=== PATIENT | female | born 1945 | race African-American/Black ===

== ENCOUNTER 2016-09-20 14:00 | Inpatient (IN) | payer MEDICARE, OTHER ==
[2016-09-20 16:49] LABS: ABSOLUTE BASOPHILS # (AUTO) 0.2 10^3/uL (0.0-0.2); ABSOLUTE EOSINOPHILS # (AUTO) 0.1 10^3/uL (0.0-0.6); ABSOLUTE LYMPHOCYTES (AUTO) 2.1 10^3/uL (0.5-4.7); ABSOLUTE MONOCYTES (AUTO) 0.7 10^3/uL (0.1-1.4); ABSOLUTE NEUT (AUTO) 15.5 10^3/uL (1.7-8.2); BASOPHILS % (AUTO) 0.9 % (0-2); EOSINOPHILS % (AUTO) 0.6 % (0-6); HEMATOCRIT 43.1 % (36.0-47.0); HEMOGLOBIN 14.4 g/dL (12.0-15.5); HGB HCT DIFFERENCE 0.1; LYMPHOCYTES % (AUTO) 11.1 % (13-45); MEAN CORPUSCULAR HEMOGLOBIN 25.5 pg (27.0-33.4); MEAN CORPUSCULAR HGB CONC 33.3 g/dL (32.0-36.0); MEAN CORPUSCULAR VOLUME 77 fl (80-97); MONOCYTES % (AUTO) 3.8 % (3-13); RED BLOOD COUNT 5.63 10^6/uL (3.72-5.28); RED CELL DISTRIBUTION WIDTH 16.4 % (11.5-14.0); SEGMENTED NEUTROPHILS % (AUTO) 83.6 % (42-78); WHITE BLOOD COUNT 18.5 10^3/uL (4.0-10.5)
[2016-09-20 17:01] LABS: PROTHROMBIN TIME 12.3 SEC (11.4-15.4)
[2016-09-20 17:07] LABS: ALANINE AMINOTRANSFERASE 35 U/L (9-52); ALBUMIN 3.3 g/dL (3.5-5.0); ALKALINE PHOSPHATASE 127 U/L (38-126); ANION GAP 7 (5-19); ASPARTATE AMINO TRANSFERASE 35 U/L (14-36); BILIRUBIN,TOTAL 0.5 mg/dL (0.2-1.3); BLOOD UREA NITROGEN 20 mg/dL (7-20); CARBON DIOXIDE 30 mmol/L (22-30); CHLORIDE 102 mmol/L (98-107); CREATINE KINASE 157 U/L (30-135); CREATININE RESULT 1.26 mg/dL (0.52-1.25); GLUCOSE 206 mg/dL (75-110); POTASSIUM 3.2 mmol/L (3.6-5.0); SODIUM 139.4 mmol/L (137-145); TOTAL PROTEIN 7.5 g/dL (6.3-8.2)
[2016-09-20] MEDS ORDERED: LABETALOL HCL INJ 20 MG/4 ML DISP.SYRIN IV ONE (17:15)
[2016-09-20] MEDS ORDERED: ONDANSETRON HCL INJ/PF 4 MG/2 ML SDV IV ONE (17:16)
[2016-09-20 17:18] LABS: CREATINE KINASE MB 1.03 ng/mL (<4.55); TROPONIN I 0.026 ng/mL
--- NOTE | 2016-09-20 17:24 | EKG REPORT ---
SEVERITY:- ABNORMAL ECG - SINUS RHYTHM REPOL ABNRM SUGGESTS ISCHEMIA, DIFFUSE LEADS BORDERLINE PROLONGED QT INTERVAL : Confirmed by: Tuan Hirsch MD 20-Sep-2016 17:22:47
--- NOTE | 2016-09-20 18:01 | ER Document Report ---
ED Blood Pressure Problem - General Chief Complaint: Chest Pressure Stated Complaint: HEAD PAIN/VOMITING Notes: Patient is a 70-year-old female who comes in with headache and high blood pressure. Patient was started on new blood pressure medication yesterday and states she cannot tolerate it. Patient's had a headache but it is worse and she is vomiting. Patient also has had some blurred vision. Denies chest pain or trouble breathing. TRAVEL OUTSIDE OF THE [place] IN LAST 30 DAYS: No - HPI Patient complains to provider of: High blood pressure Onset: Other Onset/Duration: Gradual Quality of pain: Dull Severity: Moderate Associated symptoms: Vomiting - Related Data Allergies/Adverse Reactions: codeine [Codeine] Allergy (Mild, Verified 09/20/16 14:43) meperidine HCl [From Demerol] Allergy (Mild, Verified 09/20/16 14:43) Past Medical History - General Information source: Patient - Social History Smoking Status: Unknown if Ever Smoked Family History: Reviewed & Not Pertinent - Past Medical History Cardiac Medical History: Reports: Hx Coronary Artery Disease, Hx Hypertension Neurological Medical History: Denies: Hx Seizures Endocrine Medical History: Reports: Hx Diabetes Mellitus Type 1 Renal/ Medical History: Reports: Hx Ovarian Cysts Musculoskeltal Medical History: Reports Hx Arthritis Psychiatric Medical History: Denies: Hx Depression Past Surgical History: Reports: Hx Cardiac Catheterization - stents x 2, Hx Gynecologic Surgery, Hx Hysterectomy, Hx Tubal Ligation - Immunizations Immunizations up to date: Yes Hx Diphtheria, Pertussis, Tetanus Vaccination: Yes Review of Systems - Review of Systems Constitutional: No symptoms reported EENT: No symptoms reported Cardiovascular: No symptoms reported Respiratory: No symptoms reported Gastrointestinal: See HPI Genitourinary: No symptoms reported Female Genitourinary: No symptoms reported Musculoskeletal: No symptoms reported Skin: No symptoms reported Hematologic/Lymphatic: No symptoms reported Neurological/Psychological: See HPI Physical Exam - Vital signs Vitals: Temp Pulse Resp BP Pulse Ox 98.1 F 75 20 253/104 H 98 09/20/16 14:51 09/20/16 14:51 09/20/16 14:51 09/20/16 14:51 09/20/16 14:51 Interpretation: Hypertensive - General General appearance: Alert In distress: Mild - in pain - HEENT Head: Normocephalic, Atraumatic Eyes: Normal Pupils: PERRL - Respiratory Respiratory status: No respiratory distress Chest status: Nontender Breath sounds: Normal Chest palpation: Normal - Cardiovascular Rhythm: Regular Heart sounds: Normal auscultation Murmur: No - Abdominal Inspection: Normal Distension: No distension Bowel sounds: Normal Tenderness: Nontender Organomegaly: No organomegaly - Back Back: Normal, Nontender - Extremities General upper extremity: Normal inspection, Nontender, Normal color, Normal ROM , Normal temperature General lower extremity: Normal inspection, Nontender, Normal color, Normal ROM , Normal temperature, Normal weight bearing. No: Reid's sign - Neurological Neuro grossly intact: Yes Cognition: Normal Orientation: AAOx4 Jamal Coma Scale Eye Opening: Spontaneous Jamal Coma Scale Verbal: Oriented Jamal Coma Scale Motor: Obeys Commands Jamal Coma Scale Total: 15 Speech: Normal Motor strength normal: LUE, RUE, LLE, RLE Sensory: Normal - Psychological Associated symptoms: Normal affect, Normal mood - Skin Skin Temperature: Warm Skin Moisture: Dry Skin Color: Normal Course - Re-evaluation Re-evalutation: 09/20/16 19:13 Patient is being given labetalol and Zofran with improvement of her symptoms. Patient will be started on a Cardene drip. She has been discussed with her primary care doctor will be admitted to the ICU. Blood work and head CT within normal limits at this time. No further vomiting. Blood pressure is coming down nicely. - Vital Signs Vital signs: Temp Pulse Resp BP Pulse Ox 98.1 F 75 20 253/104 H 98 09/20/16 14:51 09/20/16 14:51 09/20/16 14:51 09/20/16 14:51 09/20/16 14:51 - Laboratory Result Diagrams: 09/20/16 16:30 09/20/16 16:30 Laboratory results interpreted by me: 09/20/16 09/20/16 16:30 16:30 WBC 18.5 H RBC 5.63 H MCV 77 L MCH 25.5 L RDW 16.4 H Seg Neutrophils % 83.6 H Lymphocytes % 11.1 L Absolute Neutrophils 15.5 H Potassium 3.2 L Creatinine 1.26 H Est GFR ( Amer) 51 L Est GFR (Non-Af Amer) 42 L Glucose 206 H Alkaline Phosphatase 127 H Creatine Kinase 157 H Albumin 3.3 L - Diagnostic Test Radiology reviewed: Reports reviewed - EKG Interpretation by Me EKG shows normal: Sinus rhythm Rate: Normal Rhythm: NSR Critical Care Note - Critical Care Note Total time excluding time spent on procedures (mins): 45 - evaluation and management of hypertensive crisis, management of headache and vomiting, multiple re-evaluations, coordination of admission, counseling of patient and family Discharge - Discharge Clinical Impression: Hypertensive crisis Condition: Stable Disposition: ADMITTED INPATIENT Admitting Provider: [facility] Admitted: ICU
[2016-09-20] MEDS: NICARDIPINE HCL RTU, ISO-OS 200 ML IV PRN ×3 (18:17→22:39)
[2016-09-20] MEDS ORDERED: DEXTROSE 50%-WATER 25 GM/50 ML DISP.SYRIN IV PRN ×2 (19:11)
[2016-09-20] MEDS ORDERED: DEXTROSE 40% GEL 15 GM TUBE PO PRN ×2 (19:11)
[2016-09-20] MEDS ORDERED: GLUCAGON,HUMAN RECOMB 1 MG INJ IM PRN (19:11)
[2016-09-20] MEDS ORDERED: NITROGLYCERIN 0.4 MG/TAB 25 TAB/BOTTLE SL PRN (19:12)
[2016-09-20] MEDS ORDERED: ALPRAZOLAM 0.25 MG PO PRN (19:12)
[2016-09-20] MEDS ORDERED: ERGOCALCIFEROL (VITAMIN D2) 50000 UNIT (1.25 MG) CAPSULE PO PRN (19:12)
[2016-09-20] MEDS ORDERED: METFORMIN HCL PO SCH (19:15)
[2016-09-20] MEDS ORDERED: (PENDING PHARMACY ID) (Exenatide Microspheres [Bydureon Pen] 2 MG) SQ SCH (19:15)
[2016-09-20] MEDS ORDERED: METOPROLOL TARTRATE 100 MG TABLET PO SCH (19:15)
[2016-09-20] MEDS ORDERED: CLONIDINE HCL 0.2 MG TABLET PO SCH (19:15)
[2016-09-20] MEDS ORDERED: [UNRECOGNIZED DRUG - OTHER] PO SCH (19:15)
[2016-09-20] MEDS ORDERED: CANAGLIFLOZIN PO SCH (19:15)
[2016-09-20] MEDS ORDERED: INSULIN GLARGINE,HUM.REC.ANLOG 300 UNIT/3 ML INSULN.PEN SUBCUT SCH (19:15)
[2016-09-20] MEDS ORDERED: ATORVASTATIN CALCIUM 40 MG TABLET PO SCH (19:15)
[2016-09-20] MEDS ORDERED: ALPRAZOLAM 0.25 MG TABLET PO PRN (19:26)
[2016-09-20] MEDS ORDERED: ENOXAPARIN SODIUM INJ 40 MG/0.4 ML DISP.SYRIN SUBCUT ONE (20:00)
[2016-09-20] MEDS ORDERED: ASPIRIN 81 MG TABLET, CHEWABLE PO ONE (20:00)
[2016-09-20] MEDS: BUTALB/ACETAMINOPHEN/CAFFEINE 1 TAB EACH PO PRN (21:05)
[2016-09-20 21:22] LABS: PROTHROMBIN TIME 12.5 SEC (11.4-15.4)
[2016-09-20 21:23] LABS: PARTIAL THROMBOPLASTIN TIME 23.1 SEC (23.5-35.8)
[2016-09-20 21:44] LABS: LIPASE 58.4 U/L (23-300); MAGNESIUM 1.8 mg/dL (1.6-2.3); PHOSPHORUS 4.5 mg/dL (2.5-4.5)
[2016-09-20 21:53] LABS: CREATINE KINASE MB 0.89 ng/mL (<4.55); TROPONIN I 0.025 ng/mL
[2016-09-20] MEDS ORDERED: METOPROLOL TARTRATE 50 MG TABLET ONE (22:03)
[2016-09-20 22:18] LABS: THYROID STIMULATING HORMONE 2.14 uIU/mL (0.47-4.68)
[2016-09-20] MEDS: ONDANSETRON HCL INJ/PF 4 MG/2 ML SDV IV PRN (22:22)
[2016-09-20] MEDS: METOPROLOL TARTRATE 100 MG TABLET PO SCH (22:39)
[2016-09-20] MEDS: ATORVASTATIN CALCIUM 80 MG TABLET PO SCH (22:39)
[2016-09-20] MEDS: INSULIN GLARGINE,HUM.REC.ANLOG 300 UNIT/3 ML INSULN.PEN SUBCUT SCH (22:39)
[2016-09-20] MEDS: CEFTRIAXONE 1 GM/D5W RTU 1 GM/50 ML RTUPB IV SCH (22:39)
[2016-09-20] MEDS: CLONIDINE HCL 0.2 MG TABLET PO SCH (22:39)
[2016-09-20] MEDS: INSULIN LISPRO 100 UNIT/ML 3 ML VIAL SUBCUT PRN (23:05)
[2016-09-21 01:49] LABS: CREATINE KINASE MB 1.23 ng/mL (<4.55)
[2016-09-21 01:51] LABS: TROPONIN I 0.05 ng/mL
[2016-09-21] MEDS: NICARDIPINE HCL RTU, ISO-OS 200 ML IV PRN ×5 (03:28→22:16)
[2016-09-21 07:31] LABS: ABSOLUTE BASOPHILS # (AUTO) 0.2 10^3/uL (0.0-0.2); ABSOLUTE MONOCYTES (AUTO) 1.1 10^3/uL (0.1-1.4); ABSOLUTE NEUT (AUTO) 10.6 10^3/uL (1.7-8.2); BASOPHILS % (AUTO) 1.3 % (0-2); HEMOGLOBIN 13.3 g/dL (12.0-15.5); HGB HCT DIFFERENCE -0.1; LYMPHOCYTES % (AUTO) 14.3 % (13-45); MEAN CORPUSCULAR HEMOGLOBIN 25.2 pg (27.0-33.4); MEAN CORPUSCULAR HGB CONC 33.2 g/dL (32.0-36.0); MEAN CORPUSCULAR VOLUME 76 fl (80-97); RED BLOOD COUNT 5.26 10^6/uL (3.72-5.28); RED CELL DISTRIBUTION WIDTH 16.2 % (11.5-14.0); SEGMENTED NEUTROPHILS % (AUTO) 76.4 % (42-78); WHITE BLOOD COUNT 13.9 10^3/uL (4.0-10.5)
[2016-09-21 07:42] LABS: ALANINE AMINOTRANSFERASE 23 U/L (9-52); ALBUMIN 3.3 g/dL (3.5-5.0); ALKALINE PHOSPHATASE 112 U/L (38-126); ANION GAP 11 (5-19); ASPARTATE AMINO TRANSFERASE 27 U/L (14-36); BILIRUBIN,TOTAL 0.3 mg/dL (0.2-1.3); BLOOD UREA NITROGEN 24 mg/dL (7-20); CALCIUM 8.5 mg/dL (8.4-10.2); CARBON DIOXIDE 29 mmol/L (22-30); CHLORIDE 99 mmol/L (98-107); CHOLESTEROL 313.64 mg/dL (0-200); CREATININE RESULT 1.58 mg/dL (0.52-1.25); Direct HDL 66 mg/dL (>40); GLUCOSE 257 mg/dL (75-110); SODIUM 138.9 mmol/L (137-145); TOTAL PROTEIN 6.4 g/dL (6.3-8.2); TRIGLYCERIDES 192 mg/dL (<150)
[2016-09-21 07:52] LABS: CREATINE KINASE MB 2.5 ng/mL (<4.55); TROPONIN I 0.116 ng/mL
[2016-09-21 07:53] LABS: DIRECT LDL 206 mg/dL (<100)
[2016-09-21 08:00] LABS: VLDL CHOLESTEROL 38.4 mg/dL (10-31)
[2016-09-21] MEDS ORDERED: ENOXAPARIN SODIUM INJ 30 MG/0.3 ML DISP.SYRIN SUBCUT SCH (08:00)
[2016-09-21 08:19] LABS: POTASSIUM 2.9 mmol/L (3.6-5.0)
[2016-09-21] MEDS: ENOXAPARIN SODIUM INJ 40 MG/0.4 ML DISP.SYRIN SUBCUT SCH (09:00)
[2016-09-21] MEDS: ACETAMINOPHEN 325 MG TABLET PO PRN (09:03)
[2016-09-21] MEDS: BUTALB/ACETAMINOPHEN/CAFFEINE 1 TAB EACH PO PRN (09:04)
[2016-09-21] MEDS: ASPIRIN 81 MG TABLET, CHEWABLE PO SCH (11:51)
[2016-09-21] MEDS: CLONIDINE HCL 0.2 MG TABLET PO SCH ×2 (11:52→21:43)
[2016-09-21] MEDS: INSULIN GLARGINE,HUM.REC.ANLOG 300 UNIT/3 ML INSULN.PEN SUBCUT SCH ×2 (11:53→21:46)
[2016-09-21] MEDS: METOPROLOL TARTRATE 100 MG TABLET PO SCH ×2 (11:53→21:45)
[2016-09-21] MEDS: INSULIN LISPRO 100 UNIT/ML 3 ML VIAL SUBCUT SCH ×2 (11:54→14:20)
[2016-09-21] MEDS: ONDANSETRON HCL INJ/PF 4 MG/2 ML SDV IV PRN ×2 (12:02→17:23)
--- NOTE | 2016-09-21 12:53 | EKG REPORT ---
SEVERITY:- ABNORMAL ECG - SINUS RHYTHM LVH WITH SECONDARY REPOLARIZATION ABNORMALITY PROLONGED QT INTERVAL : Confirmed by: Tuan Hirsch MD 21-Sep-2016 12:52:32
[2016-09-21] MEDS: POTASSIUM CHLORIDE 10 MEQ TABLET.SA PO SCH ×2 (14:19→20:39)
--- NOTE | 2016-09-21 17:26 | XCELERA REPORT ---
[address] [address] Transthoracic Echocardiogram Report Name: YG METZ Age: 70 yrs Gender: Female : 1945 Patient Status: Inpatient Patient Location: \S\ED10\S\A Study Date: 09/21/2016 10:57 AM Height: 62 in Weight: 214 lb BSA: 2.0 m2 Procedure: A two-dimensional transthoracic echocardiogram with color flow and Doppler was performed. Study Quality: Fair. Reason For Study: ELEVATED TROPONIN History: ELEVATED TROPONIN. Ordering Physician: QUINCY ALEJO Performed By: Sierra Long Interpretation Summary The left ventricle is normal in size. There is mild asymmetric left ventricular hypertrophy. No LVOT obstruction and no 'MIKE'.Hence no IHSS. Left ventricular systolic function is normal. LV EF is 65% Doppler measurements suggest impaired left ventricular relaxation, which is associated with grade I/IV or mild diastolic dysfunction The left ventricular wall motion is normal. The left atrium is borderline dilated. There is no evidence of mitral valve prolapse. There is no mitral valve stenosis. There is a mild amount of mitral regurgitation There is no aortic valve stenosis There is no LVOT obstruction. No aortic regurgitation is present. There is no tricuspid stenosis. There is a trace amount of tricuspid regurgitation Right ventricular systolic pressure is normal. RVSP is 28 mm of Hg , with RA mean of 5. There is a trace amount of pulmonic regurgitation There is no pericardial effusion. MMode/2D Measurements \T\ Calculations RVDd: 3.1 cm LVIDd: 4.0 cm FS: 37.4 % Ao root diam: 2.8 cm IVSd: 1.4 cm LVIDs: 2.5 cm EDV(Teich): 68.2 ml LVPWd: 1.3 cm ESV(Teich): 21.8 ml Ao root area: 6.1 cm2 EF(Teich): 68.0 % LA dimension: 4.1 cm Doppler Measurements \T\ Calculations MV E max renzo: MV P1/2t max renzo: Ao V2 max: LV V1 max P.8 cm/sec 81.4 cm/sec 177.6 cm/sec 5.0 mmHg MV A max renzo: MV P1/2t: 87.5 msec Ao max PG: LV V1 max: 118.6 cm/sec 12.6 mmHg 111.7 cm/sec MV E/A: 0.69 MVA(P1/2t): 2.5 cm2 MV dec slope: 272.6 cm/sec2 MV dec time: 0.30 sec TV V2 max: PA V2 max: PI end-d renzo: TR max renzo: 232.1 cm/sec 75.6 cm/sec 141.2 cm/sec 237.8 cm/sec TV max PG: PA max P.3 mmHg TR max P.6 mmHg 22.6 mmHg Left Ventricle The left ventricle is normal in size. There is mild asymmetric left ventricular hypertrophy. No LVOT obstruction and no 'MIKE'.Hence no IHSS. Left ventricular systolic function is normal. LV EF is 65%. Doppler measurements suggest impaired left ventricular relaxation, which is associated with grade I/IV or mild diastolic dysfunction. The left ventricular wall motion is normal. There is no thrombus. There is no ventricular septal defect visualized. Right Ventricle The right ventricle is grossly normal size. Atria The right atrium is normal. The left atrium is borderline dilated. The interatrial septum is intact with no evidence for an atrial septal defect. Mitral Valve There is no evidence of mitral valve prolapse. There is no vegetation seen on the mitral valve. There is no mitral valve stenosis. There is a mild amount of mitral regurgitation. Aortic Valve There is no aortic valvular vegetation. There is no aortic valve stenosis. There is no LVOT obstruction. No aortic regurgitation is present. Tricuspid Valve There is no tricuspid stenosis. There is a trace amount of tricuspid regurgitation. Right ventricular systolic pressure is normal. RVSP is 28 mm of Hg , with RA mean of 5. Pulmonic Valve There is no pulmonic valvular stenosis. There is a trace amount of pulmonic regurgitation. Great Vessels The aortic root is normal size. Effusions There is no pericardial effusion. : QUINCY ALEJO > Jennifer De Jesus
[2016-09-21] MEDS ORDERED: POTASSIUM CHLORIDE 10 MEQ TABLET.SA PO SCH ×2 (18:00→19:39)
--- NOTE | 2016-09-21 19:47 | PDOC H&P ---
History of Present Illness Admission Date/PCP: 09/20/16 19:03 QUINCY ALEJO, History of Present Illness: YG METZ is a 70 year old female, she came to the emergency room because of headache and vomiting and the blood pressure recorded in the emergency room was 253/104. I saw her in the office yesterday when she came for follow-up. She also complained of headache and the blood pressure recorded in the office yesterday was 280/120, I suggested hospital admission, but she preferred outpatient treatment. She was given tribenzor, in the office and the blood pressure came down some, she was supposed to be on Tribenzor, metoprolol and clonidine, but apparently she was taking only metoprolol and clonidine, so the blood pressure was not optimally controlled.. She was admitted 08/07/2016 where she had right-sided hemicranial headache and on that admission. MRI head was done and it was negative, but at that time she was on that tremendous stress because her son was being charged for murder because her son was involved in heat of passion murder.. In the emergency room when she arrived, CT head was done and it was negative, but because she is vomiting with a headache admission to the hospital was advised and it is appropriate. She was started on intravenous Cardene infusion for the control of the blood pressure. Past Medical History Cardiac Medical History: Reports: Coronary Artery Disease, Hypertension Endocrine Medical History: Reports: Diabetes Mellitus Type 2 Musculoskeltal Medical History: Reports: Arthritis Past Surgical History Past Surgical History: Reports: Cardiac Catheterization - stents x 2, Hysterectomy, Tubal Ligation Social History Information Source: Patient Lives with: Family Smoking Status: Never Smoker Frequency of Alcohol Use: None Hx Recreational Drug Use: No Drugs: None Hx Prescription Drug Abuse: No Family History Family History: Reviewed & Not Pertinent Parental Family History Reviewed: Yes Children Family History Reviewed: Yes Sibling(s) Family History Reviewed.: Yes Medication/Allergy Home Medications: Aspirin [Aspirin 81 mg Chewable Tablet] 81 mg PO DAILY 09/21/16 Butalb/Acetaminophen/Caffeine [Fioricet (50-325-40 mg) Tablet] 1 tab PO Q6HP PRN 09/21/16 Canagliflozin/Metformin HCl [Invokamet Xr 150-1,000 mg Tab] 1 tab PO DAILY 09/21 Clonidine HCl 0.2 mg PO Q12 09/21/16 Furosemide [Lasix] 20 mg PO Q6 09/21/16 Insulin Glargine,Hum.rec.anlog [Lantus Solostar] 20 unit SQ Q12 09/21/16 Insulin Lispro [Humalog] 0 units SQ ASDIR PRN 09/21/16 Metoprolol Tartrate [Lopressor 100 mg Tablet] 100 mg PO Q12 09/21/16 Nitroglycerin 0.4 mg SL PRN PRN 09/21/16 Olmesartan/Amlodipin/Hcthiazid [Tribenzor 40-10-25 mg Tablet] 1 tab PO DAILY Allergies/Adverse Reactions: codeine [Codeine] Allergy (Mild, Verified 09/20/16 14:43) meperidine HCl [From Demerol] Allergy (Mild, Verified 09/20/16 14:43) Review of Systems Constitutional: PRESENT: headache(s) Eyes: ABSENT: as per HPI, visual disturbances, other Ears: ABSENT: hearing changes Nose, Mouth, and Throat: ABSENT: as per HPI, headache(s), mouth pain, sore throat, vertigo, other Cardiovascular: ABSENT: as per HPI, chest pain, dyspnea on exertion, edema, orthropnea, palpitations, other Respiratory: ABSENT: as per HPI, cough, dyspnea, hemoptysis, sputum, other Gastrointestinal: PRESENT: vomiting Genitourinary: ABSENT: as per HPI, difficulty urinating, dysuria, hematuria, nocturia, other Neurological: PRESENT: other - Headache Endocrine: ABSENT: as per HPI, cold intolerance, flushing, heat intolerance, menstrual abnormalities, polydipsia, polyphagia, polyuria, other Physical Exam Vital Signs: Temp Pulse Resp BP Pulse Ox 98.0 F 80 20 162/65 H 99 09/21/16 14:00 09/21/16 17:05 09/21/16 17:05 09/21/16 17:05 09/21/16 17:05 Intake & Output 09/20/16 09/21/16 09/22/16 06:59 06:59 06:59 Intake Total 700 Balance 700 General appearance: PRESENT: mild distress Eye exam: PRESENT: PERRLA Respiratory exam: PRESENT: clear to auscultation jeanette Cardiovascular exam: PRESENT: +S1, +S2 GI/Abdominal exam: PRESENT: soft Neurological exam: PRESENT: alert Results Laboratory Results: 09/21/16 07:15 09/21/16 07:15 09/20/16 09/20/16 09/21/16 20:50 20:50 07:15 WBC 13.9 H RBC 5.26 Hgb 13.3 Hct 40.0 MCV 76 L MCH 25.2 L MCHC 33.2 RDW 16.2 H Plt Count 357 Seg Neutrophils % 76.4 Lymphocytes % 14.3 Monocytes % 8.0 Eosinophils % 0.0 Basophils % 1.3 Absolute Neutrophils 10.6 H Absolute Lymphocytes 2.0 Absolute Monocytes 1.1 Absolute Eosinophils 0.0 Absolute Basophils 0.2 Sodium Potassium Chloride Carbon Dioxide Anion Gap BUN Creatinine Est GFR ( Amer) Est GFR (Non-Af Amer) Glucose Calcium Phosphorus 4.5 Magnesium 1.8 Total Bilirubin AST ALT Alkaline Phosphatase Total Protein Albumin Triglycerides Cholesterol LDL Cholesterol Direct VLDL Cholesterol HDL Cholesterol Amylase 178 H Lipase 58.4 TSH 2.14 Free T4 1.28 09/21/16 07:15 WBC RBC Hgb Hct MCV MCH MCHC RDW Plt Count Seg Neutrophils % Lymphocytes % Monocytes % Eosinophils % Basophils % Absolute Neutrophils Absolute Lymphocytes Absolute Monocytes Absolute Eosinophils Absolute Basophils Sodium 138.9 Potassium 2.9 L* Chloride 99 Carbon Dioxide 29 Anion Gap 11 BUN 24 H Creatinine 1.58 H Est GFR ( Amer) 39 L Est GFR (Non-Af Amer) 32 L Glucose 257 H Calcium 8.5 Phosphorus Magnesium Total Bilirubin 0.3 AST 27 ALT 23 Alkaline Phosphatase 112 Total Protein 6.4 Albumin 3.3 L Triglycerides 192 H Cholesterol 313.64 H LDL Cholesterol Direct 206 H VLDL Cholesterol 38.4 H HDL Cholesterol 66 Amylase Lipase TSH Free T4 09/20/16 09/20/16 09/20/16 20:50 20:50 20:50 Creatine Kinase 156 H CK-MB (CK-2) 0.89 Troponin I 0.025 NT-Pro-B Natriuret Pep Cancelled 09/20/16 09/21/16 09/21/16 20:50 01:07 01:07 Creatine Kinase 112 CK-MB (CK-2) 1.23 Troponin I 0.050 NT-Pro-B Natriuret Pep 6430 H 09/21/16 09/21/16 07:15 07:15 Creatine Kinase 125 CK-MB (CK-2) 2.50 Troponin I 0.116 NT-Pro-B Natriuret Pep Impressions: Chest X-Ray 09/20/16 00:00 IMPRESSION: CARDIAC ENLARGEMENT WITHOUT FAILURE. Head CT 09/20/16 17:00 IMPRESSION: CHRONIC CHANGES OF ATROPHY AND MICROVASCULAR ISCHEMIA. NO ACUTE PROCESS. Assessment & Plan - Diagnosis (1) Malignant hypertension Is this a current diagnosis for this admission?: YesPlan: There is associated hypokalemia, she will be evaluated for secondary hypertension, urine potassium the be requested, 24-hour urine for aldosterone, cortisol, catecholamines, metanephrine and plasma renin activity to differentiate between primary and secondary hyperaldosteronis (2) Hypokalemia Is this a current diagnosis for this admission?: YesPlan: The combination of hypertension, hypokalemia raises the suspicion for hyperaldosteronism (3) Uncontrolled type 2 diabetes mellitus with complication Qualifiers: Diabetes mellitus exterminator insulin use: with custodial use Qualified Code(s): E11.8 - Type 2 diabetes mellitus with unspecified complications; E11.65 - Type 2 diabetes mellitus with hyperglycemia Is this a current diagnosis for this admission?: Yes
--- NOTE | 2016-09-21 19:57 | PDOC PROGRESS REPORT ---
Subjective Progress Note for:: 09/21/16 Subjective:: Patient was seen by the bedside, the blood pressure is not optimally controlled yet. When she was admitted yesterday, this serum creatinine was 1.26, the serum creatinine today is 1.58, suggesting mild acute kidney injury. Yesterday when she was admitted. She had unexplained leukocytosis and she was empirically started on intravenous ceftriaxone. I do not see any urinalysis though it was requested on admission. She has Doppler study of the renal vessels today and that was no evidence of stenosis. She is presently not on any angiotensin converting enzyme inhibitor or angiotensin receptor eliazar because she's been evaluated for hyper aldosteronism as a secondary cause of hypertension with continued to watch the kidney function closely Physical Exam Vital Signs: Temp Pulse Resp BP Pulse Ox 98.0 F 80 20 162/65 H 99 09/21/16 14:00 09/21/16 17:05 09/21/16 17:05 09/21/16 17:05 09/21/16 17:05 Intake & Output 09/20/16 09/21/16 09/22/16 06:59 06:59 06:59 Intake Total 700 Balance 700 General appearance: PRESENT: no acute distress Eye exam: PRESENT: PERRLA Respiratory exam: PRESENT: clear to auscultation jeanette Cardiovascular exam: PRESENT: +S1, +S2 Neurological exam: PRESENT: alert Results Laboratory Results: 09/21/16 07:15 09/21/16 07:15 09/20/16 09/20/16 09/21/16 20:50 20:50 07:15 WBC 13.9 H RBC 5.26 Hgb 13.3 Hct 40.0 MCV 76 L MCH 25.2 L MCHC 33.2 RDW 16.2 H Plt Count 357 Seg Neutrophils % 76.4 Lymphocytes % 14.3 Monocytes % 8.0 Eosinophils % 0.0 Basophils % 1.3 Absolute Neutrophils 10.6 H Absolute Lymphocytes 2.0 Absolute Monocytes 1.1 Absolute Eosinophils 0.0 Absolute Basophils 0.2 Sodium Potassium Chloride Carbon Dioxide Anion Gap BUN Creatinine Est GFR ( Amer) Est GFR (Non-Af Amer) Glucose Calcium Phosphorus 4.5 Magnesium 1.8 Total Bilirubin AST ALT Alkaline Phosphatase Total Protein Albumin Triglycerides Cholesterol LDL Cholesterol Direct VLDL Cholesterol HDL Cholesterol Amylase 178 H Lipase 58.4 TSH 2.14 Free T4 1.28 09/21/16 07:15 WBC RBC Hgb Hct MCV MCH MCHC RDW Plt Count Seg Neutrophils % Lymphocytes % Monocytes % Eosinophils % Basophils % Absolute Neutrophils Absolute Lymphocytes Absolute Monocytes Absolute Eosinophils Absolute Basophils Sodium 138.9 Potassium 2.9 L* Chloride 99 Carbon Dioxide 29 Anion Gap 11 BUN 24 H Creatinine 1.58 H Est GFR ( Amer) 39 L Est GFR (Non-Af Amer) 32 L Glucose 257 H Calcium 8.5 Phosphorus Magnesium Total Bilirubin 0.3 AST 27 ALT 23 Alkaline Phosphatase 112 Total Protein 6.4 Albumin 3.3 L Triglycerides 192 H Cholesterol 313.64 H LDL Cholesterol Direct 206 H VLDL Cholesterol 38.4 H HDL Cholesterol 66 Amylase Lipase TSH Free T4 09/20/16 09/20/16 09/20/16 20:50 20:50 20:50 Creatine Kinase 156 H CK-MB (CK-2) 0.89 Troponin I 0.025 NT-Pro-B Natriuret Pep Cancelled 09/20/16 09/21/16 09/21/16 20:50 01:07 01:07 Creatine Kinase 112 CK-MB (CK-2) 1.23 Troponin I 0.050 NT-Pro-B Natriuret Pep 6430 H 09/21/16 09/21/16 07:15 07:15 Creatine Kinase 125 CK-MB (CK-2) 2.50 Troponin I 0.116 NT-Pro-B Natriuret Pep Impressions: Chest X-Ray 09/20/16 00:00 IMPRESSION: CARDIAC ENLARGEMENT WITHOUT FAILURE. Head CT 09/20/16 17:00 IMPRESSION: CHRONIC CHANGES OF ATROPHY AND MICROVASCULAR ISCHEMIA. NO ACUTE PROCESS. Head MRI 09/21/16 00:00 IMPRESSION: Negative for acute or sub-acute infarction.MINIMAL MICROVASCULAR ISCHEMIC CHANGE. Assessment & Plan - Diagnosis (1) Malignant hypertension Is this a current diagnosis for this admission?: YesPlan: We'll increase clonidine dose to 0.2 MG by mouth every 8. We'll continue Cardene infusion until the 24 hour urine collection is complete (2) Hypokalemia Is this a current diagnosis for this admission?: Yes (3) Uncontrolled type 2 diabetes mellitus with complication Qualifiers: Diabetes mellitus director long term care insulin use: with director long term care use Qualified Code(s): E11.8 - Type 2 diabetes mellitus with unspecified complications; E11.65 - Type 2 diabetes mellitus with hyperglycemia Is this a current diagnosis for this admission?: Yes (4) Leukocytosis Qualifiers: Leukocytosis type: unspecified Qualified Code(s): D72.829 - Elevated white blood cell count, unspecified Is this a current diagnosis for this admission?: YesPlan: Patient empirically on intravenous ceftriaxone for presumptive UTI (5) ETTA (acute kidney injury) Is this a current diagnosis for this admission?: YesPlan: This serum creatinine is 1.58 today, suggesting acute kidney injury. This could be related to the hypertensive crisis
--- NOTE | 2016-09-21 19:58 | PDOC PROGRESS REPORT ---
Physical Exam Vital Signs: Temp Pulse Resp BP Pulse Ox 98.0 F 74 12 153/70 H 97 09/21/16 14:00 09/21/16 17:20 09/21/16 17:20 09/21/16 17:20 09/21/16 17:20 Intake & Output 09/20/16 09/21/16 09/22/16 06:59 06:59 06:59 Intake Total 700 Balance 700 Results Laboratory Results: 09/21/16 07:15 09/21/16 07:15 09/20/16 09/20/16 09/21/16 20:50 20:50 07:15 WBC 13.9 H RBC 5.26 Hgb 13.3 Hct 40.0 MCV 76 L MCH 25.2 L MCHC 33.2 RDW 16.2 H Plt Count 357 Seg Neutrophils % 76.4 Lymphocytes % 14.3 Monocytes % 8.0 Eosinophils % 0.0 Basophils % 1.3 Absolute Neutrophils 10.6 H Absolute Lymphocytes 2.0 Absolute Monocytes 1.1 Absolute Eosinophils 0.0 Absolute Basophils 0.2 Sodium Potassium Chloride Carbon Dioxide Anion Gap BUN Creatinine Est GFR ( Amer) Est GFR (Non-Af Amer) Glucose Calcium Phosphorus 4.5 Magnesium 1.8 Total Bilirubin AST ALT Alkaline Phosphatase Total Protein Albumin Triglycerides Cholesterol LDL Cholesterol Direct VLDL Cholesterol HDL Cholesterol Amylase 178 H Lipase 58.4 TSH 2.14 Free T4 1.28 09/21/16 07:15 WBC RBC Hgb Hct MCV MCH MCHC RDW Plt Count Seg Neutrophils % Lymphocytes % Monocytes % Eosinophils % Basophils % Absolute Neutrophils Absolute Lymphocytes Absolute Monocytes Absolute Eosinophils Absolute Basophils Sodium 138.9 Potassium 2.9 L* Chloride 99 Carbon Dioxide 29 Anion Gap 11 BUN 24 H Creatinine 1.58 H Est GFR ( Amer) 39 L Est GFR (Non-Af Amer) 32 L Glucose 257 H Calcium 8.5 Phosphorus Magnesium Total Bilirubin 0.3 AST 27 ALT 23 Alkaline Phosphatase 112 Total Protein 6.4 Albumin 3.3 L Triglycerides 192 H Cholesterol 313.64 H LDL Cholesterol Direct 206 H VLDL Cholesterol 38.4 H HDL Cholesterol 66 Amylase Lipase TSH Free T4 09/20/16 09/20/16 09/20/16 20:50 20:50 20:50 Creatine Kinase 156 H CK-MB (CK-2) 0.89 Troponin I 0.025 NT-Pro-B Natriuret Pep Cancelled 09/20/16 09/21/16 09/21/16 20:50 01:07 01:07 Creatine Kinase 112 CK-MB (CK-2) 1.23 Troponin I 0.050 NT-Pro-B Natriuret Pep 6430 H 09/21/16 09/21/16 07:15 07:15 Creatine Kinase 125 CK-MB (CK-2) 2.50 Troponin I 0.116 NT-Pro-B Natriuret Pep Impressions: Chest X-Ray 09/20/16 00:00 IMPRESSION: CARDIAC ENLARGEMENT WITHOUT FAILURE. Head CT 09/20/16 17:00 IMPRESSION: CHRONIC CHANGES OF ATROPHY AND MICROVASCULAR ISCHEMIA. NO ACUTE PROCESS. Head MRI 09/21/16 00:00 IMPRESSION: Negative for acute or sub-acute infarction.MINIMAL MICROVASCULAR ISCHEMIC CHANGE. Assessment & Plan - Diagnosis (1) Malignant hypertension Is this a current diagnosis for this admission?: Yes (2) Hypokalemia Is this a current diagnosis for this admission?: Yes (3) Uncontrolled type 2 diabetes mellitus with complication Qualifiers: Diabetes mellitus terminal supervisor insulin use: with terminal supervisor use Qualified Code(s): E11.8 - Type 2 diabetes mellitus with unspecified complications; E11.65 - Type 2 diabetes mellitus with hyperglycemia Is this a current diagnosis for this admission?: Yes (4) Leukocytosis Qualifiers: Leukocytosis type: unspecified Qualified Code(s): D72.829 - Elevated white blood cell count, unspecified Is this a current diagnosis for this admission?: Yes (5) ETTA (acute kidney injury) Is this a current diagnosis for this admission?: Yes
[2016-09-21] MEDS: CEFTRIAXONE 1 GM/D5W RTU 1 GM/50 ML RTUPB IV SCH (21:42)
[2016-09-21] MEDS: ATORVASTATIN CALCIUM 80 MG TABLET PO SCH (21:46)
[2016-09-21] MEDS: INSULIN LISPRO 100 UNIT/ML 3 ML VIAL SUBCUT PRN (22:06)
[2016-09-22] MEDS: INSULIN LISPRO 100 UNIT/ML 3 ML VIAL SUBCUT SCH ×4 (00:48→18:48)
[2016-09-22] MEDS: ACETAMINOPHEN 325 MG TABLET PO PRN ×2 (03:41→20:23)
[2016-09-22 04:18] LABS: ABSOLUTE BASOPHILS # (AUTO) 0.1 10^3/uL (0.0-0.2); ABSOLUTE LYMPHOCYTES (AUTO) 2.7 10^3/uL (0.5-4.7); ABSOLUTE MONOCYTES (AUTO) 1.2 10^3/uL (0.1-1.4); ABSOLUTE NEUT (AUTO) 8.5 10^3/uL (1.7-8.2); BASOPHILS % (AUTO) 0.5 % (0-2); EOSINOPHILS % (AUTO) 0.2 % (0-6); HEMATOCRIT 37.4 % (36.0-47.0); HEMOGLOBIN 12.6 g/dL (12.0-15.5); HGB HCT DIFFERENCE 0.4; LYMPHOCYTES % (AUTO) 21.3 % (13-45); MEAN CORPUSCULAR HEMOGLOBIN 25.5 pg (27.0-33.4); MEAN CORPUSCULAR HGB CONC 33.6 g/dL (32.0-36.0); MEAN CORPUSCULAR VOLUME 76 fl (80-97); MONOCYTES % (AUTO) 9.4 % (3-13); RED BLOOD COUNT 4.92 10^6/uL (3.72-5.28); SEGMENTED NEUTROPHILS % (AUTO) 68.6 % (42-78); WHITE BLOOD COUNT 12.5 10^3/uL (4.0-10.5)
[2016-09-22 04:24] LABS: ALANINE AMINOTRANSFERASE 30 U/L (9-52); ALBUMIN 2.8 g/dL (3.5-5.0); ALKALINE PHOSPHATASE 87 U/L (38-126); ANION GAP 6 (5-19); ASPARTATE AMINO TRANSFERASE 39 U/L (14-36); BILIRUBIN,TOTAL 0.3 mg/dL (0.2-1.3); BLOOD UREA NITROGEN 33 mg/dL (7-20); CALCIUM 8.2 mg/dL (8.4-10.2); CARBON DIOXIDE 29 mmol/L (22-30); CHLORIDE 101 mmol/L (98-107); CREATININE RESULT 2.22 mg/dL (0.52-1.25); GLUCOSE 157 mg/dL (75-110); TOTAL PROTEIN 6.2 g/dL (6.3-8.2)
[2016-09-22] MEDS: CLONIDINE HCL 0.2 MG TABLET PO SCH ×3 (05:25→21:15)
[2016-09-22] MEDS: INSULIN LISPRO 100 UNIT/ML 3 ML VIAL SUBCUT PRN ×2 (05:26→21:31)
[2016-09-22] MEDS: ENOXAPARIN SODIUM INJ 40 MG/0.4 ML DISP.SYRIN SUBCUT SCH (08:52)
[2016-09-22] MEDS: INSULIN GLARGINE,HUM.REC.ANLOG 300 UNIT/3 ML INSULN.PEN SUBCUT SCH ×2 (09:34→21:15)
[2016-09-22] MEDS: ASPIRIN 81 MG TABLET, CHEWABLE PO SCH (09:34)
[2016-09-22] MEDS: METOPROLOL TARTRATE 100 MG TABLET PO SCH ×2 (09:34→21:14)
[2016-09-22 12:06] LABS: APPEARANCE,URINE CLOUDY; BILIRUBIN,URINE NEGATIVE (NEGATIVE); GLUCOSE, URINE 50 mg/dL (NEGATIVE); KETONES,URINE NEGATIVE (NEGATIVE); LEUKOCYTE ESTERASE,URINE NEGATIVE (NEGATIVE); NITRITE,URINE NEGATIVE (NEGATIVE); PROTEIN,URINE >=500 mg/dL (NEGATIVE); URINE SPECIFIC GRAVITY 1.012; UROBILINOGEN,URINE NEGATIVE mg/dL (<2.0)
[2016-09-22 12:26] LABS: URINE METHADONE SCREEN NEGATIVE; URINE PHENCYCLIDINE SCREEN NEGATIVE
[2016-09-22 12:30] LABS: URINE POTASSIUM 30.5 mmol/L (22-164)
[2016-09-22 12:33] LABS: URINE BARBITURATES SCREEN UNCONFIRMED POSITIVE
[2016-09-22] MEDS: HYDRALAZINE HCL 25 MG TABLET PO SCH ×2 (14:15→21:14)
[2016-09-22] MEDS ORDERED: AMLODIPINE BESYLATE 10 MG TABLET PO ONE (14:30)
--- NOTE | 2016-09-22 15:27 | PDOC CONSULTATION ---
Consultation Consult Date: 09/22/16 Attending physician:: QUINCY ALEJO Consult reason:: I was asked by Dr. Alejo to see this patient because of worsening kidney function. History of Present Illness Admission Date/PCP: 09/20/16 19:03 QUINCY ALEJO, History of Present Illness: YG METZ is a 70 year old female, she came to the emergency room because of headache and vomiting and the blood pressure recorded in the emergency room was 253/104. I saw her in the office yesterday when she came for follow-up. She also complained of headache and the blood pressure recorded in the office yesterday was 280/120, I suggested hospital admission, but she preferred outpatient treatment. She was given tribenzor, in the office and the blood pressure came down some, she was supposed to be on Tribenzor, metoprolol and clonidine, but apparently she was taking only metoprolol and clonidine, so the blood pressure was not optimally controlled.. She was admitted 08/07/2016 where she had right-sided hemicranial headache and on that admission. MRI head was done and it was negative, but at that time she was on that tremendous stress because her son was being charged for murder because her son was involved in heat of passion murder.. In the emergency room when she arrived, CT head was done and it was negative, but because she is vomiting with a headache admission to the hospital was advised and it is appropriate. She was started on intravenous Cardene infusion for the control of the blood pressure. Patient's blood pressure has gone down on Cardene drip since admission. Unfortunately it has gotten so low was low was 118 to 120s over 60s last night. Patient has been oliguric since yesterday. Her kidney function has also gotten worse. On admission she had a BUN of 20 creatinine of 1.26 and today she had a BUN of 33 creatinine of 2.22, with a GFR of 22. She denies any previous episodes of kidney failure but previous records here in the hospital showed that she might have had an episode of acute renal failure sometime in October 2015 during a previous admission. She denies any history of hepatitis B or C. She used to be take Advil but has stopped. She claims that she feels better now even feeling great. She denies any headache nor vomiting nor chest pain or shortness of breath. Her urinalysis showed significant proteinuria. Workup for secondary causes of hypertension is currently pending. She has normal thyroid functions. Her plasma renin activity, urine protein electrophoresis, and 24-hour urine for catecholamines,, cortisol and aldosterone are all pending. Her duplex of the renal arteries is negative for any hemodynamically significant renal artery stenosis. Her echocardiogram showed the ejection fraction of 65% and grade I/IV diastolic dysfunction. Patient relates to me that her blood pressure for the last 3 months as always been elevated and usually with systolic blood pressure in the 200s. It's been at least more than 3 months when she last saw blood pressure of 129/70. Past Medical History Cardiac Medical History: Reports: Coronary Artery Disease, Hyperlipidemia, Hypertension-primary - Diagnosis at least about 28 years ago. Endocrine Medical History: Reports: Diabetes Mellitus Type 2 - Diagnosed about 12 years ago Complications of Diabetes: Reports: Autonomic Neuropathy, Retinopathy Malignancy Medical History: Reports: Colorectal Cancer - Status post colon resection. Musculoskeltal Medical History: Reports: Arthritis Past Surgical History Past Surgical History: Reports: Cardiac Catheterization - stents x 2, Hysterectomy - With bilateral salpingo-oophorectomy, Tubal Ligation, Other - Colon resection Social History Information Source: Patient Lives with: Family Smoking Status: Never Smoker Frequency of Alcohol Use: None Hx Recreational Drug Use: No Drugs: None Hx Prescription Drug Abuse: No Family History Family History: DM - Both her parents, Other - Atrial fibrillation on her mother Parental Family History Reviewed: Yes Children Family History Reviewed: Unknown Sibling(s) Family History Reviewed.: Unknown Medication/Allergy Home Medications: Aspirin [Aspirin 81 mg Chewable Tablet] 81 mg PO DAILY 09/21/16 Butalb/Acetaminophen/Caffeine [Fioricet (50-325-40 mg) Tablet] 1 tab PO Q6HP PRN 09/21/16 Canagliflozin/Metformin HCl [Invokamet Xr 150-1,000 mg Tab] 1 tab PO DAILY 09/21 Clonidine HCl 0.2 mg PO Q12 09/21/16 Furosemide [Lasix] 20 mg PO Q6 09/21/16 Insulin Glargine,Hum.rec.anlog [Lantus Solostar] 20 unit SQ Q12 09/21/16 Insulin Lispro [Humalog] 0 units SQ ASDIR PRN 09/21/16 Metoprolol Tartrate [Lopressor 100 mg Tablet] 100 mg PO Q12 09/21/16 Nitroglycerin 0.4 mg SL PRN PRN 09/21/16 Olmesartan/Amlodipin/Hcthiazid [Tribenzor 40-10-25 mg Tablet] 1 tab PO DAILY Allergies/Adverse Reactions: codeine [Codeine] Allergy (Mild, Verified 09/20/16 14:43) meperidine HCl [From Demerol] Allergy (Mild, Verified 09/20/16 14:43) Review of Systems All systems: reviewed and no additional remarkable complaints except as stated Review of Systems: Constitutional: ABSENT: chills, fatigue, fever(s), headache(s), weight gain, weight loss Eyes: ABSENT: visual disturbances Ears: ABSENT: hearing changes Cardiovascular: ABSENT: chest pain, dyspnea on exertion, edema, orthropnea, palpitations Respiratory: ABSENT: cough, dyspnea, hemoptysis Gastrointestinal: ABSENT: abdominal pain, constipation, diarrhea, hematemesis, hematochezia, nausea, vomiting Genitourinary: ABSENT: dysuria, hematuria; decrease urine output Musculoskeletal: ABSENT: joint swelling Integumentary: ABSENT: rash, wounds Neurological: ABSENT: abnormal gait, abnormal speech, confusion, dizziness, focal weakness, numbness, syncope Psychiatric: ABSENT: anxiety, depression Endocrine: ABSENT: cold intolerance, heat intolerance, polydipsia, polyuria Hematologic/Lymphatic: ABSENT: easy bleeding, easy bruising, lymphadenopathy Physical Exam Vital Signs: Temp Pulse Resp BP Pulse Ox 98.5 F 67 17 165/81 H 98 09/22/16 14:58 09/22/16 14:58 09/22/16 14:58 09/22/16 14:58 09/22/16 14:58 Intake & Output 09/21/16 09/22/16 09/23/16 06:59 06:59 06:59 Intake Total 2413 360 Output Total 180 50 Balance 2233 310 Exam: General appearance: no acute distress, cooperative, well-developed, well- nourished Head exam: PRESENT: atraumatic, normocephalic Eye exam: PRESENT: Conjunctiva slightly pale, EOMI, PERRLA. ABSENT: conjunctival injection, scleral icterus Mouth exam: PRESENT: moist, neck supple, tongue midline Neck exam: PRESENT: full ROM. ABSENT: carotid bruit, JVD, lymphadenopathy, thyromegaly Respiratory exam: PRESENT: clear to auscultation bilaterally. ABSENT: rales, rhonchi, stridor, wheezes Cardiovascular exam: PRESENT: RRR, +S1, +S2. ABSENT: systolic murmur Pulses: PRESENT: normal radial pulses, normal dorsalis pedis pulses GI/Abdominal exam: PRESENT: normal bowel sounds, soft. ABSENT: guarding, mass, tenderness Rectal exam: deferred Extremities exam: PRESENT: full ROM. ABSENT: calf tenderness, she has trace bilateral pedal edema Musculoskeletal: PRESENT: full ROM. ABSENT: deformity Neurological exam: PRESENT: alert, Awake, Oriented to person, Oriented to place , Oriented to time, reflexes normal, CN II-XII grossly intact. ABSENT: motor sensory deficit Psychiatric exam: PRESENT: appropriate affect, normal mood. ABSENT: homicidal ideation, suicidal ideation Skin exam: PRESENT: intact, dry, warm. ABSENT: rash Results Laboratory Results: 09/22/16 03:51 09/22/16 03:51 09/22/16 09/22/16 09/22/16 03:51 03:51 11:43 WBC 12.5 H RBC 4.92 Hgb 12.6 Hct 37.4 MCV 76 L MCH 25.5 L MCHC 33.6 RDW 16.0 H Plt Count 322 Seg Neutrophils % 68.6 Lymphocytes % 21.3 Monocytes % 9.4 Eosinophils % 0.2 Basophils % 0.5 Absolute Neutrophils 8.5 H Absolute Lymphocytes 2.7 Absolute Monocytes 1.2 Absolute Eosinophils 0.0 Absolute Basophils 0.1 Sodium 136.0 L Potassium 4.0 D Chloride 101 Carbon Dioxide 29 Anion Gap 6 BUN 33 H Creatinine 2.22 H Est GFR ( Amer) 26 L Est GFR (Non-Af Amer) 22 L Glucose 157 H Calcium 8.2 L Total Bilirubin 0.3 AST 39 H ALT 30 Alkaline Phosphatase 87 Total Protein 6.2 L Albumin 2.8 L Urine Color YELLOW Urine Appearance CLOUDY Urine pH 5.0 Ur Specific [place] 1.012 Urine Protein >=500 H Urine Glucose (UA) 50 H Urine Ketones NEGATIVE Urine Blood SMALL H Urine Nitrite NEGATIVE Ur Leukocyte Esterase NEGATIVE Urine WBC (Auto) 7 Urine RBC (Auto) 3 09/20/16 09/20/16 09/20/16 20:50 20:50 20:50 Creatine Kinase 156 H CK-MB (CK-2) 0.89 Troponin I 0.025 NT-Pro-B Natriuret Pep Cancelled 09/20/16 09/21/16 09/21/16 20:50 01:07 01:07 Creatine Kinase 112 CK-MB (CK-2) 1.23 Troponin I 0.050 NT-Pro-B Natriuret Pep 6430 H 09/21/16 09/21/16 07:15 07:15 Creatine Kinase 125 CK-MB (CK-2) 2.50 Troponin I 0.116 NT-Pro-B Natriuret Pep Impressions: Chest X-Ray 09/20/16 00:00 IMPRESSION: CARDIAC ENLARGEMENT WITHOUT FAILURE. Head CT 09/20/16 17:00 IMPRESSION: CHRONIC CHANGES OF ATROPHY AND MICROVASCULAR ISCHEMIA. NO ACUTE PROCESS. Head MRI 09/21/16 00:00 IMPRESSION: Negative for acute or sub-acute infarction.MINIMAL MICROVASCULAR ISCHEMIC CHANGE. Assessment & Plan - Diagnosis (1) ETTA (acute kidney injury) Is this a current diagnosis for this admission?: YesPlan: This is most likely secondary to the drastic change on her all blood pressure causing an acute tubular necrosis. Patient is currently oliguric. She does not have any other signs of fluid overload or uremic symptoms at this point. We need to maintain her all systolic blood pressure to at least 160 to 180s at this point and nothing lower. At this time there is no indication of any urgent need for renal replacement therapy. Hopefully once her blood pressure is not as low she can have reversal of this acute kidney injury. Continue to monitor kidney function and urine output. Avoid any nephrotoxic agents. Patient also has significant proteinuria. It is very possible that she has an underlying chronic renal insufficiency with proteinuria secondary to a combination of diabetes and hypertension. (2) Acute renal tubular necrosis Is this a current diagnosis for this admission?: Yes (3) Malignant hypertension Is this a current diagnosis for this admission?: YesPlan: Maintain systolic blood pressure to 160 to 180s with current blood pressure regimen. Agree with discontinuation of Cardene drip at this time. Workup for secondary causes of hypertension is currently pending. I will add plasma aldosterone. Agree with current blood pressure medications. (4) Uncontrolled type 2 diabetes mellitus with complication Qualifiers: Diabetes mellitus fci insulin use: with fci use Qualified Code(s): E11.8 - Type 2 diabetes mellitus with unspecified complications; E11.65 - Type 2 diabetes mellitus with hyperglycemia Is this a current diagnosis for this admission?: YesPlan: This needs better long-term control of blood pressure. PCP managing. - Notes Notes: Thank you very much for this consultation and I'll follow the patient with you. - Time Time Spent: 50 to 70 Minutes
--- NOTE | 2016-09-22 15:58 | PDOC PROGRESS REPORT ---
Subjective Progress Note for:: 09/22/16 Subjective:: Patient was seen by the bedside, this serum creatinine is 2.2, suggesting acute kidney injury, probably due to acute tubular necrosis. She has significant proteinuria. Unfortunately, we are not able to measure urine protein creatinine ratio at this time in the hospital because of lack of reagent. The urine potassium is more than 20 suggesting renal loss of potassium, there is no indication for acute dialysis at this time, we'll request for consultation from nephrology. Patient felt somewhat better, the serum renin activity is pending . 24-hour urine collection for secondary causes of hypertension is ongoing. The kidney Doppler study of the renal vessels were normal suggesting no significant renal artery stenosis. Physical Exam Vital Signs: Temp Pulse Resp BP Pulse Ox 98.5 F 67 17 165/81 H 98 09/22/16 14:58 09/22/16 14:58 09/22/16 14:58 09/22/16 14:58 09/22/16 14:58 Intake & Output 09/21/16 09/22/16 09/23/16 06:59 06:59 06:59 Intake Total 2413 360 Output Total 180 50 Balance 2233 310 General appearance: PRESENT: no acute distress, well-developed, well-nourished Head exam: PRESENT: atraumatic, normocephalic Eye exam: PRESENT: conjunctiva pink, EOMI, PERRLA. ABSENT: scleral icterus Ear exam: PRESENT: normal external ear exam Mouth exam: PRESENT: moist, tongue midline Neck exam: PRESENT: full ROM Cardiovascular exam: PRESENT: RRR, +S1, +S2 Vascular exam: PRESENT: normal capillary refill GI/Abdominal exam: PRESENT: normal bowel sounds, soft Rectal exam: PRESENT: deferred Neurological exam: PRESENT: alert, awake, oriented to person, oriented to place , oriented to time, oriented to situation, CN II-XII grossly intact Psychiatric exam: PRESENT: appropriate affect, normal mood Skin exam: PRESENT: dry, intact, warm Results Laboratory Results: 09/22/16 03:51 09/22/16 03:51 09/22/16 09/22/16 09/22/16 03:51 03:51 11:43 WBC 12.5 H RBC 4.92 Hgb 12.6 Hct 37.4 MCV 76 L MCH 25.5 L MCHC 33.6 RDW 16.0 H Plt Count 322 Seg Neutrophils % 68.6 Lymphocytes % 21.3 Monocytes % 9.4 Eosinophils % 0.2 Basophils % 0.5 Absolute Neutrophils 8.5 H Absolute Lymphocytes 2.7 Absolute Monocytes 1.2 Absolute Eosinophils 0.0 Absolute Basophils 0.1 Sodium 136.0 L Potassium 4.0 D Chloride 101 Carbon Dioxide 29 Anion Gap 6 BUN 33 H Creatinine 2.22 H Est GFR ( Amer) 26 L Est GFR (Non-Af Amer) 22 L Glucose 157 H Calcium 8.2 L Total Bilirubin 0.3 AST 39 H ALT 30 Alkaline Phosphatase 87 Total Protein 6.2 L Albumin 2.8 L Urine Color YELLOW Urine Appearance CLOUDY Urine pH 5.0 Ur Specific [place] 1.012 Urine Protein >=500 H Urine Glucose (UA) 50 H Urine Ketones NEGATIVE Urine Blood SMALL H Urine Nitrite NEGATIVE Ur Leukocyte Esterase NEGATIVE Urine WBC (Auto) 7 Urine RBC (Auto) 3 09/20/16 09/20/16 09/20/16 20:50 20:50 20:50 Creatine Kinase 156 H CK-MB (CK-2) 0.89 Troponin I 0.025 NT-Pro-B Natriuret Pep Cancelled 09/20/16 09/21/16 09/21/16 20:50 01:07 01:07 Creatine Kinase 112 CK-MB (CK-2) 1.23 Troponin I 0.050 NT-Pro-B Natriuret Pep 6430 H 09/21/16 09/21/16 07:15 07:15 Creatine Kinase 125 CK-MB (CK-2) 2.50 Troponin I 0.116 NT-Pro-B Natriuret Pep Impressions: Chest X-Ray 09/20/16 00:00 IMPRESSION: CARDIAC ENLARGEMENT WITHOUT FAILURE. Head CT 09/20/16 17:00 IMPRESSION: CHRONIC CHANGES OF ATROPHY AND MICROVASCULAR ISCHEMIA. NO ACUTE PROCESS. Head MRI 09/21/16 00:00 IMPRESSION: Negative for acute or sub-acute infarction.MINIMAL MICROVASCULAR ISCHEMIC CHANGE. Assessment & Plan - Diagnosis (1) Malignant hypertension Is this a current diagnosis for this admission?: Yes (2) Hypokalemia Is this a current diagnosis for this admission?: Yes (3) Uncontrolled type 2 diabetes mellitus with complication Qualifiers: Diabetes mellitus [facility] insulin use: with continuous churn buttermaker use Qualified Code(s): E11.8 - Type 2 diabetes mellitus with unspecified complications; E11.65 - Type 2 diabetes mellitus with hyperglycemia Is this a current diagnosis for this admission?: Yes (4) Leukocytosis Qualifiers: Leukocytosis type: unspecified Qualified Code(s): D72.829 - Elevated white blood cell count, unspecified Is this a current diagnosis for this admission?: Yes (5) ETTA (acute kidney injury) Is this a current diagnosis for this admission?: YesPlan: The acute kidney injury is probably due to acute tubular necrosis (6) Acute tubular necrosis Is this a current diagnosis for this admission?: Yes
[2016-09-22] MEDS: ATORVASTATIN CALCIUM 80 MG TABLET PO SCH (21:14)
[2016-09-22] MEDS: CEFTRIAXONE 1 GM/D5W RTU 1 GM/50 ML RTUPB IV SCH (21:15)
[2016-09-22] MEDS: BUTALB/ACETAMINOPHEN/CAFFEINE 1 TAB EACH PO PRN (21:26)
[2016-09-23 04:34] LABS: ABSOLUTE BASOPHILS # (AUTO) 0.1 10^3/uL (0.0-0.2); ABSOLUTE EOSINOPHILS # (AUTO) 0.1 10^3/uL (0.0-0.6); ABSOLUTE LYMPHOCYTES (AUTO) 2.4 10^3/uL (0.5-4.7); ABSOLUTE MONOCYTES (AUTO) 0.8 10^3/uL (0.1-1.4); ABSOLUTE NEUT (AUTO) 4.1 10^3/uL (1.7-8.2); BASOPHILS % (AUTO) 0.9 % (0-2); EOSINOPHILS % (AUTO) 1.9 % (0-6); HEMATOCRIT 35.4 % (36.0-47.0); HEMOGLOBIN 11.7 g/dL (12.0-15.5); HGB HCT DIFFERENCE -0.3; LYMPHOCYTES % (AUTO) 31.9 % (13-45); MEAN CORPUSCULAR HEMOGLOBIN 25.1 pg (27.0-33.4); MEAN CORPUSCULAR VOLUME 76 fl (80-97); MONOCYTES % (AUTO) 10.6 % (3-13); RED BLOOD COUNT 4.64 10^6/uL (3.72-5.28); RED CELL DISTRIBUTION WIDTH 15.7 % (11.5-14.0); SEGMENTED NEUTROPHILS % (AUTO) 54.7 % (42-78); WHITE BLOOD COUNT 7.6 10^3/uL (4.0-10.5)
[2016-09-23 04:46] LABS: ALANINE AMINOTRANSFERASE 43 U/L (9-52); ALBUMIN 2.5 g/dL (3.5-5.0); ALKALINE PHOSPHATASE 106 U/L (38-126); ANION GAP 7 (5-19); ASPARTATE AMINO TRANSFERASE 33 U/L (14-36); BILIRUBIN,TOTAL 0.2 mg/dL (0.2-1.3); BLOOD UREA NITROGEN 40 mg/dL (7-20); CALCIUM 8.3 mg/dL (8.4-10.2); CARBON DIOXIDE 27 mmol/L (22-30); CHLORIDE 104 mmol/L (98-107); CREATININE RESULT 2.12 mg/dL (0.52-1.25); GLUCOSE 206 mg/dL (75-110); POTASSIUM 3.7 mmol/L (3.6-5.0); SODIUM 137.5 mmol/L (137-145); TOTAL PROTEIN 5.2 g/dL (6.3-8.2)
[2016-09-23] MEDS: CLONIDINE HCL 0.2 MG TABLET PO SCH ×3 (06:31→21:09)
[2016-09-23] MEDS: HYDRALAZINE HCL 25 MG TABLET PO SCH ×3 (06:32→21:07)
[2016-09-23] MEDS: ENOXAPARIN SODIUM INJ 30 MG/0.3 ML DISP.SYRIN SUBCUT SCH (07:58)
[2016-09-23] MEDS: INSULIN LISPRO 100 UNIT/ML 3 ML VIAL SUBCUT PRN ×2 (07:59→11:31)
--- NOTE | 2016-09-23 09:21 | PDOC PROGRESS REPORT ---
Subjective Progress Note for:: 09/23/16 Subjective:: pt is doing well no chest pain no headache bp is still on 170 range pt seen by dr shah Physical Exam Vital Signs: Temp Pulse Resp BP Pulse Ox 97.6 F 57 L 17 165/83 H 100 09/23/16 07:33 09/23/16 08:00 09/23/16 08:00 09/23/16 07:54 09/23/16 08:00 Intake & Output 09/22/16 09/23/16 09/24/16 06:59 06:59 06:59 Intake Total 2413 900 210 Output Total 180 800 Balance 2233 100 210 General appearance: PRESENT: no acute distress Head exam: PRESENT: normocephalic Eye exam: PRESENT: PERRLA Mouth exam: PRESENT: neck supple Respiratory exam: PRESENT: clear to auscultation jeanette Cardiovascular exam: PRESENT: RRR, +S1, +S2 GI/Abdominal exam: PRESENT: normal bowel sounds, soft. ABSENT: tenderness Extremities exam: ABSENT: pedal edema Neurological exam: PRESENT: alert, awake, oriented to person, oriented to place , oriented to time, oriented to situation, reflexes normal, CN II-XII grossly intact Skin exam: PRESENT: normal color Results Laboratory Results: 09/23/16 04:14 09/23/16 04:14 09/22/16 09/23/16 09/23/16 11:43 04:14 04:14 WBC 7.6 RBC 4.64 Hgb 11.7 L Hct 35.4 L MCV 76 L MCH 25.1 L MCHC 33.0 RDW 15.7 H Plt Count 249 Seg Neutrophils % 54.7 Lymphocytes % 31.9 Monocytes % 10.6 Eosinophils % 1.9 Basophils % 0.9 Absolute Neutrophils 4.1 Absolute Lymphocytes 2.4 Absolute Monocytes 0.8 Absolute Eosinophils 0.1 Absolute Basophils 0.1 Sodium 137.5 Potassium 3.7 Chloride 104 Carbon Dioxide 27 Anion Gap 7 BUN 40 H Creatinine 2.12 H Est GFR ( Amer) 28 L Est GFR (Non-Af Amer) 23 L Glucose 206 H Calcium 8.3 L Total Bilirubin 0.2 AST 33 ALT 43 Alkaline Phosphatase 106 Total Protein 5.2 L Albumin 2.5 L Urine Color YELLOW Urine Appearance CLOUDY Urine pH 5.0 Ur Specific [place] 1.012 Urine Protein >=500 H Urine Glucose (UA) 50 H Urine Ketones NEGATIVE Urine Blood SMALL H Urine Nitrite NEGATIVE Ur Leukocyte Esterase NEGATIVE Urine WBC (Auto) 7 Urine RBC (Auto) 3 09/20/16 09/20/16 09/20/16 20:50 20:50 20:50 Creatine Kinase 156 H CK-MB (CK-2) 0.89 Troponin I 0.025 NT-Pro-B Natriuret Pep Cancelled 09/20/16 09/21/16 09/21/16 20:50 01:07 01:07 Creatine Kinase 112 CK-MB (CK-2) 1.23 Troponin I 0.050 NT-Pro-B Natriuret Pep 6430 H 09/21/16 09/21/16 07:15 07:15 Creatine Kinase 125 CK-MB (CK-2) 2.50 Troponin I 0.116 NT-Pro-B Natriuret Pep Impressions: Chest X-Ray 09/20/16 00:00 IMPRESSION: CARDIAC ENLARGEMENT WITHOUT FAILURE. Head CT 09/20/16 17:00 IMPRESSION: CHRONIC CHANGES OF ATROPHY AND MICROVASCULAR ISCHEMIA. NO ACUTE PROCESS. Head MRI 09/21/16 00:00 IMPRESSION: Negative for acute or sub-acute infarction.MINIMAL MICROVASCULAR ISCHEMIC CHANGE. Assessment & Plan - Diagnosis (1) ETTA (acute kidney injury) Is this a current diagnosis for this admission?: YesPlan: stable cont curr med pending lab f/u dr shah (2) Malignant hypertension Is this a current diagnosis for this admission?: YesPlan: off christopher drip increse hydalzine 50mg q8 keep bp 160 range (4) Mental status change Qualifiers: Altered mental status type: unspecified Qualified Code(s): R41.82 - Altered mental status, unspecified Is this a current diagnosis for this admission?: YesPlan: all resolved (5) Sleep apnea syndrome Qualifiers: Sleep apnea type: unspecified type Qualified Code(s): G47.30 - Sleep apnea, unspecified Is this a current diagnosis for this admission?: YesPlan: addi wisdom pap (6) Uncontrolled type 2 diabetes mellitus with complication Qualifiers: Diabetes mellitus buttermaker continuous churn insulin use: with buttermaker continuous churn use Qualified Code(s): E11.8 - Type 2 diabetes mellitus with unspecified complications; E11.65 - Type 2 diabetes mellitus with hyperglycemia Is this a current diagnosis for this admission?: YesPlan: cont curr med - Time Time Spent with patient: 15-24 minutes Medications reviewed and adjusted accordingly: Yes Anticipated discharge: Home - Inpatient Certification Medical Necessity: Failure to Improve With Outpatient Therapy, Need For Continuous Telemetry Monitoring, Risk of Diagnosis Which Will Require Inpatient Eval/Care/Monitoring - Plan Summary Plan Summary: increse hydalazine keep sbp is 160 range f/u with dr shah if doing well may down grade imcu
[2016-09-23] MEDS: METOPROLOL TARTRATE 100 MG TABLET PO SCH ×2 (10:07→21:10)
[2016-09-23] MEDS: ASPIRIN 81 MG TABLET, CHEWABLE PO SCH (10:07)
[2016-09-23] MEDS: AMLODIPINE BESYLATE 10 MG TABLET PO SCH (10:07)
[2016-09-23] MEDS: INSULIN GLARGINE,HUM.REC.ANLOG 300 UNIT/3 ML INSULN.PEN SUBCUT SCH ×2 (10:08→21:11)
[2016-09-23] MEDS: ATORVASTATIN CALCIUM 80 MG TABLET PO SCH (21:06)
[2016-09-23] MEDS: CEFTRIAXONE 1 GM/D5W RTU 1 GM/50 ML RTUPB IV SCH (21:10)
[2016-09-23] MEDS: BUTALB/ACETAMINOPHEN/CAFFEINE 1 TAB EACH PO PRN (23:46)
[2016-09-24] MEDS: HYDRALAZINE HCL 25 MG TABLET PO SCH (03:05)
[2016-09-24] MEDS: CLONIDINE HCL 0.2 MG TABLET PO SCH ×3 (03:06→21:37)
[2016-09-24] MEDS ORDERED: LORAZEPAM INJ 2 MG/1 ML VIAL ONE (06:20)
[2016-09-24] MEDS ORDERED: LORAZEPAM INJ 2 MG/1 ML VIAL IV ONE (06:30)
[2016-09-24 06:59] LABS: ABSOLUTE BASOPHILS # (AUTO) 0.1 10^3/uL (0.0-0.2); ABSOLUTE EOSINOPHILS # (AUTO) 0.2 10^3/uL (0.0-0.6); ABSOLUTE LYMPHOCYTES (AUTO) 1.9 10^3/uL (0.5-4.7); ABSOLUTE MONOCYTES (AUTO) 0.7 10^3/uL (0.1-1.4); ABSOLUTE NEUT (AUTO) 4.2 10^3/uL (1.7-8.2); BASOPHILS % (AUTO) 1.1 % (0-2); EOSINOPHILS % (AUTO) 2.5 % (0-6); HEMATOCRIT 35.6 % (36.0-47.0); HEMOGLOBIN 11.8 g/dL (12.0-15.5); HGB HCT DIFFERENCE -0.2; LYMPHOCYTES % (AUTO) 26.5 % (13-45); MEAN CORPUSCULAR HEMOGLOBIN 25.3 pg (27.0-33.4); MEAN CORPUSCULAR HGB CONC 33.2 g/dL (32.0-36.0); MEAN CORPUSCULAR VOLUME 76 fl (80-97); MONOCYTES % (AUTO) 10.4 % (3-13); RED BLOOD COUNT 4.65 10^6/uL (3.72-5.28); RED CELL DISTRIBUTION WIDTH 16.1 % (11.5-14.0); SEGMENTED NEUTROPHILS % (AUTO) 59.5 % (42-78); WHITE BLOOD COUNT 7.1 10^3/uL (4.0-10.5)
[2016-09-24 07:16] LABS: ANION GAP 9 (5-19); BLOOD UREA NITROGEN 33 mg/dL (7-20); CALCIUM 8.4 mg/dL (8.4-10.2); CARBON DIOXIDE 25 mmol/L (22-30); CHLORIDE 106 mmol/L (98-107); GLUCOSE 196 mg/dL (75-110); POTASSIUM 3.5 mmol/L (3.6-5.0); SODIUM 139.5 mmol/L (137-145)
[2016-09-24] MEDS ORDERED: LORAZEPAM 0.5 MG TABLET PO PRN (09:24)
[2016-09-24] MEDS ORDERED: HYDRALAZINE HCL 25 MG TABLET PO SCH (09:30)
[2016-09-24] MEDS ORDERED: HYDRALAZINE HCL 25 MG TABLET ONE (09:41)
[2016-09-24] MEDS ORDERED: POTASSIUM CHLORIDE 10 MEQ TABLET.SA PO ONE ×2 (09:41→10:00)
--- NOTE | 2016-09-24 09:43 | PDOC PROGRESS REPORT ---
Subjective Progress Note for:: 09/24/16 Subjective:: Patient is doing fair denied any headache or any chest pain patient's blood pressure is still running 160+ patient's is very anxious last night and required anxiety medications and the blood pressure is coming down from there to patient's kidney function is also improving patient's denied any other symptoms this morning discussed with the nursing staff in ICU and suggest the patient is pretty stable yesterday and no events happen Physical Exam Vital Signs: Temp Pulse Resp BP Pulse Ox 98.8 F 53 L 10 L 191/83 H 99 09/24/16 08:00 09/24/16 08:00 09/24/16 08:36 09/24/16 08:36 09/24/16 08:36 Intake & Output 09/23/16 09/24/16 09/25/16 06:59 06:59 06:59 Intake Total 900 973 Output Total 800 2400 0 Balance 100 -1427 0 General appearance: PRESENT: no acute distress Head exam: PRESENT: normocephalic Eye exam: PRESENT: PERRLA Respiratory exam: PRESENT: clear to auscultation jeanette Cardiovascular exam: PRESENT: +S1, +S2 GI/Abdominal exam: PRESENT: normal bowel sounds, soft. ABSENT: tenderness, other Extremities exam: ABSENT: pedal edema Neurological exam: PRESENT: alert, awake, oriented to person, oriented to place , oriented to time, oriented to situation Psychiatric exam: PRESENT: anxious Skin exam: PRESENT: dry Results Laboratory Results: 09/24/16 06:40 09/24/16 06:40 09/24/16 09/24/16 06:40 06:40 WBC 7.1 RBC 4.65 Hgb 11.8 L Hct 35.6 L MCV 76 L MCH 25.3 L MCHC 33.2 RDW 16.1 H Plt Count 267 Seg Neutrophils % 59.5 Lymphocytes % 26.5 Monocytes % 10.4 Eosinophils % 2.5 Basophils % 1.1 Absolute Neutrophils 4.2 Absolute Lymphocytes 1.9 Absolute Monocytes 0.7 Absolute Eosinophils 0.2 Absolute Basophils 0.1 Sodium 139.5 Potassium 3.5 L Chloride 106 Carbon Dioxide 25 Anion Gap 9 BUN 33 H Creatinine 1.50 H Est GFR ( Amer) 42 L Est GFR (Non-Af Amer) 34 L Glucose 196 H Calcium 8.4 09/20/16 09/20/16 09/20/16 20:50 20:50 20:50 Creatine Kinase 156 H CK-MB (CK-2) 0.89 Troponin I 0.025 NT-Pro-B Natriuret Pep Cancelled 09/20/16 09/21/16 09/21/16 20:50 01:07 01:07 Creatine Kinase 112 CK-MB (CK-2) 1.23 Troponin I 0.050 NT-Pro-B Natriuret Pep 6430 H 09/21/16 09/21/16 07:15 07:15 Creatine Kinase 125 CK-MB (CK-2) 2.50 Troponin I 0.116 NT-Pro-B Natriuret Pep Impressions: Chest X-Ray 09/20/16 00:00 IMPRESSION: CARDIAC ENLARGEMENT WITHOUT FAILURE. Head CT 09/20/16 17:00 IMPRESSION: CHRONIC CHANGES OF ATROPHY AND MICROVASCULAR ISCHEMIA. NO ACUTE PROCESS. Head MRI 09/21/16 00:00 IMPRESSION: Negative for acute or sub-acute infarction.MINIMAL MICROVASCULAR ISCHEMIC CHANGE. Assessment & Plan - Diagnosis (1) ETTA (acute kidney injury) Is this a current diagnosis for this admission?: YesPlan: ALT improving follow-up with the nephrology (2) Malignant hypertension Is this a current diagnosis for this admission?: YesPlan: Increase the hydralazine 75 mg every 8. Keep systolic blood pressure was 160 range c (3) Hypertensive emergency Plan: ALT improving (4) Mental status change Qualifiers: Altered mental status type: unspecified Qualified Code(s): R41.82 - Altered mental status, unspecified Is this a current diagnosis for this admission?: YesPlan: Resolved (5) Sleep apnea syndrome Qualifiers: Sleep apnea type: unspecified type Qualified Code(s): G47.30 - Sleep apnea, unspecified Is this a current diagnosis for this admission?: YesPlan: conr c pap (6) Uncontrolled type 2 diabetes mellitus with complication Qualifiers: Diabetes mellitus [employer] insulin use: with [facility] use Qualified Code(s): E11.8 - Type 2 diabetes mellitus with unspecified complications; E11.65 - Type 2 diabetes mellitus with hyperglycemia Is this a current diagnosis for this admission?: YesPlan: cont curr med - Time Time Spent with patient: 15-24 minutes Critical Time spent with patient: 15-24 minutes Medications reviewed and adjusted accordingly: Yes Anticipated discharge: Home - Inpatient Certification Medical Necessity: Need Close Monitoring Due to Risk of Patient Decompensation - Plan Summary Plan Summary: Patient is currently slowly improving still pending secondary hypertensin's lab follow with the nephrology increase the blood pressure medication and that patient at this point downgraded to the IMCU and close monitor over the
[2016-09-24] MEDS: ENOXAPARIN SODIUM INJ 30 MG/0.3 ML DISP.SYRIN SUBCUT SCH (09:45)
[2016-09-24] MEDS: INSULIN GLARGINE,HUM.REC.ANLOG 300 UNIT/3 ML INSULN.PEN SUBCUT SCH ×2 (09:46→21:37)
[2016-09-24] MEDS: INSULIN LISPRO 100 UNIT/ML 3 ML VIAL SUBCUT PRN ×2 (09:46→17:03)
[2016-09-24] MEDS: ASPIRIN 81 MG TABLET, CHEWABLE PO SCH (09:47)
[2016-09-24] MEDS: METOPROLOL TARTRATE 100 MG TABLET PO SCH ×2 (09:48→21:38)
[2016-09-24] MEDS: AMLODIPINE BESYLATE 10 MG TABLET PO SCH (09:49)
[2016-09-24] MEDS: HYDRALAZINE HCL 50 MG TABLET PO SCH ×2 (09:50→17:06)
[2016-09-24] MEDS: BUTALB/ACETAMINOPHEN/CAFFEINE 1 TAB EACH PO PRN ×2 (15:16→21:39)
[2016-09-24] MEDS: ATORVASTATIN CALCIUM 80 MG TABLET PO SCH (21:38)
[2016-09-24] MEDS: CEFTRIAXONE 1 GM/D5W RTU 1 GM/50 ML RTUPB IV SCH (21:38)
[2016-09-25] MEDS: HYDRALAZINE HCL 50 MG TABLET PO SCH ×3 (03:08→17:12)
[2016-09-25] MEDS: CLONIDINE HCL 0.2 MG TABLET PO SCH ×3 (06:09→22:29)
[2016-09-25] MEDS: BUTALB/ACETAMINOPHEN/CAFFEINE 1 TAB EACH PO PRN ×2 (06:09→21:33)
[2016-09-25] MEDS: INSULIN LISPRO 100 UNIT/ML 3 ML VIAL SUBCUT PRN ×4 (07:43→22:28)
[2016-09-25] MEDS: AMLODIPINE BESYLATE 10 MG TABLET PO SCH (09:10)
[2016-09-25] MEDS: ASPIRIN 81 MG TABLET, CHEWABLE PO SCH (09:10)
[2016-09-25] MEDS: METOPROLOL TARTRATE 100 MG TABLET PO SCH ×2 (09:11→22:28)
[2016-09-25] MEDS: ENOXAPARIN SODIUM INJ 30 MG/0.3 ML DISP.SYRIN SUBCUT SCH (09:11)
[2016-09-25] MEDS: INSULIN GLARGINE,HUM.REC.ANLOG 300 UNIT/3 ML INSULN.PEN SUBCUT SCH ×2 (09:11→22:27)
--- NOTE | 2016-09-25 09:25 | PDOC PROGRESS REPORT ---
Subjective Progress Note for:: 09/25/16 Subjective:: Patient is doing well. Patient's denied any chest pain no shortness of the breath. Patient had some migraine headache on and off patient's blood pressure is coming down on 40-160 range and no other events happened Physical Exam Vital Signs: Temp Pulse Resp BP Pulse Ox 98.0 F 57 L 19 170/65 H 98 09/25/16 08:01 09/25/16 08:01 09/25/16 08:01 09/25/16 08:01 09/25/16 08:01 Intake & Output 09/24/16 09/25/16 09/26/16 06:59 06:59 06:59 Intake Total 973 750 Output Total 2400 1450 Balance -1427 -700 Weight 97.1 kg General appearance: PRESENT: no acute distress Head exam: PRESENT: normocephalic Eye exam: PRESENT: PERRLA Mouth exam: PRESENT: neck supple Neck exam: PRESENT: full ROM Respiratory exam: PRESENT: clear to auscultation jeanette Cardiovascular exam: PRESENT: +S1, +S2 GI/Abdominal exam: PRESENT: normal bowel sounds, soft. ABSENT: tenderness Extremities exam: ABSENT: pedal edema Neurological exam: PRESENT: alert, awake, oriented to person, oriented to place , oriented to time, oriented to situation Psychiatric exam: PRESENT: normal mood Skin exam: PRESENT: normal color Results Laboratory Results: 09/24/16 06:40 09/24/16 06:40 09/22/16 11:43 Clean Catch Midstream Urine Culture - Final Enterococcus Faecium (Group D) 09/20/16 09/20/16 09/20/16 20:50 20:50 20:50 Creatine Kinase 156 H CK-MB (CK-2) 0.89 Troponin I 0.025 NT-Pro-B Natriuret Pep Cancelled 09/20/16 09/21/16 09/21/16 20:50 01:07 01:07 Creatine Kinase 112 CK-MB (CK-2) 1.23 Troponin I 0.050 NT-Pro-B Natriuret Pep 6430 H 09/21/16 09/21/16 07:15 07:15 Creatine Kinase 125 CK-MB (CK-2) 2.50 Troponin I 0.116 NT-Pro-B Natriuret Pep Impressions: Chest X-Ray 09/20/16 00:00 IMPRESSION: CARDIAC ENLARGEMENT WITHOUT FAILURE. Head CT 09/20/16 17:00 IMPRESSION: CHRONIC CHANGES OF ATROPHY AND MICROVASCULAR ISCHEMIA. NO ACUTE PROCESS. Head MRI 09/21/16 00:00 IMPRESSION: Negative for acute or sub-acute infarction.MINIMAL MICROVASCULAR ISCHEMIC CHANGE. Assessment & Plan - Diagnosis (1) ETTA (acute kidney injury) Is this a current diagnosis for this admission?: YesPlan: ALT improving follow-up with the nephrology (2) Malignant hypertension Is this a current diagnosis for this admission?: YesPlan: ALT improving (3) Hypertensive emergency Plan: ALT improving (4) Mental status change Qualifiers: Altered mental status type: unspecified Qualified Code(s): R41.82 - Altered mental status, unspecified Is this a current diagnosis for this admission?: YesPlan: Resolved (5) Sleep apnea syndrome Qualifiers: Sleep apnea type: unspecified type Qualified Code(s): G47.30 - Sleep apnea, unspecified Is this a current diagnosis for this admission?: YesPlan: conr c pap (6) Uncontrolled type 2 diabetes mellitus with complication Qualifiers: Diabetes mellitus usp insulin use: with usp use Qualified Code(s): E11.8 - Type 2 diabetes mellitus with unspecified complications; E11.65 - Type 2 diabetes mellitus with hyperglycemia Is this a current diagnosis for this admission?: YesPlan: cont curr med (7) Urinary tract infection Qualifiers: Urinary tract infection type: site unspecified Is this a current diagnosis for this admission?: YesPlan: Continuous IV antibiotic - Time Time Spent with patient: 15-24 minutes Medications reviewed and adjusted accordingly: Yes Anticipated discharge: Home Within: within 24 hours - Inpatient Certification Medical Necessity: Need Close Monitoring Due to Risk of Patient Decompensation, Need for IV Antibiotics - Plan Summary Plan Summary: Doing much better I believe continues the current medications still pending labs and follow with the nephrology
[2016-09-25] MEDS ORDERED: ERGOCALCIFEROL (VITAMIN D2) 50000 UNIT (1.25 MG) CAPSULE PO SCH (10:00)
--- NOTE | 2016-09-25 13:30 | PDOC PROGRESS REPORT ---
Subjective Progress Note for:: 09/25/16 Subjective:: Patient is doing very well. Her blood pressure has been maintained to systolic blood pressure on the average of 140s to 160s throughout the weekend. Occasionally blood pressure goes up to systolic blood pressure of 200s but it comes down after receiving her oral medications. Her dialysis and has been increased in doses slowly. She denies any chest pains nor shortness of breath. She is eating well. Workup for secondary causes of hypertension or still pending except for the plasma renin activity which was unremarkable. She is making good amount of urine. Physical Exam Vital Signs: Temp Pulse Resp BP Pulse Ox 97.4 F 59 L 19 168/75 H 100 09/25/16 12:45 09/25/16 12:45 09/25/16 12:45 09/25/16 12:45 09/25/16 12:45 Intake & Output 09/24/16 09/25/16 09/26/16 06:59 06:59 06:59 Intake Total 973 750 237 Output Total 2400 1450 200 Balance -1427 -700 37 Weight 97.1 kg Exam: General appearance: PRESENT: no acute distress, cooperative, well-developed, well-nourished Head exam: PRESENT: atraumatic, normocephalic Eye exam: PRESENT: conjunctiva pink, PERRLA. ABSENT: scleral icterus Neck exam: ABSENT: JVD Respiratory exam: PRESENT: Normal breath sounds. ABSENT: crackles, rales, rhonchi, unlabored, wheezes Cardiovascular exam: PRESENT: Regular rate rhythm -+S1, +S2. ABSENT: diastolic murmur, systolic murmur GI/Abdominal exam: PRESENT: normal bowel sounds, soft. ABSENT: guarding, mass, tenderness Extremities exam: Trace bilateral edema Neurological exam: PRESENT: alert, awake, oriented to person, place and time. Skin exam: PRESENT: dry, warm, Results Laboratory Results: 09/24/16 06:40 09/24/16 06:40 09/22/16 11:43 Clean Catch Midstream Urine Culture - Final Enterococcus Faecium (Group D) 09/20/16 09/20/16 09/20/16 20:50 20:50 20:50 Creatine Kinase 156 H CK-MB (CK-2) 0.89 Troponin I 0.025 NT-Pro-B Natriuret Pep Cancelled 09/20/16 09/21/16 09/21/16 20:50 01:07 01:07 Creatine Kinase 112 CK-MB (CK-2) 1.23 Troponin I 0.050 NT-Pro-B Natriuret Pep 6430 H 09/21/16 09/21/16 07:15 07:15 Creatine Kinase 125 CK-MB (CK-2) 2.50 Troponin I 0.116 NT-Pro-B Natriuret Pep Impressions: Chest X-Ray 09/20/16 00:00 IMPRESSION: CARDIAC ENLARGEMENT WITHOUT FAILURE. Head CT 09/20/16 17:00 IMPRESSION: CHRONIC CHANGES OF ATROPHY AND MICROVASCULAR ISCHEMIA. NO ACUTE PROCESS. Head MRI 09/21/16 00:00 IMPRESSION: Negative for acute or sub-acute infarction.MINIMAL MICROVASCULAR ISCHEMIC CHANGE. Assessment & Plan - Diagnosis (1) ETTA (acute kidney injury) Is this a current diagnosis for this admission?: YesPlan: Improved to almost baseline kidney function with good urine output. (2) Acute renal tubular necrosis Is this a current diagnosis for this admission?: YesPlan: Resoling with improvement of kidney function. (3) Malignant hypertension Is this a current diagnosis for this admission?: YesPlan: Continue current blood pressure medication regimen. I will start the patient on Lasix 20 mg by mouth daily with potassium chloride of 20 mEq by mouth daily to start today. Follow-up results of workup for secondary causes of hypertension. (4) Uncontrolled type 2 diabetes mellitus with complication Qualifiers: Diabetes mellitus detention insulin use: with terminal gauger use Qualified Code(s): E11.8 - Type 2 diabetes mellitus with unspecified complications; E11.65 - Type 2 diabetes mellitus with hyperglycemia Is this a current diagnosis for this admission?: Yes (5) UTI (urinary tract infection) Qualifiers: Urinary tract infection type: site unspecified Hematuria presence: without hematuria Qualified Code(s): N39.0 - Urinary tract infection, site not specified Is this a current diagnosis for this admission?: YesPlan: On IV antibiotics. - Time Time with patient: 15-25 minutes
[2016-09-25] MEDS ORDERED: FUROSEMIDE 20 MG TABLET PO ONE (14:00)
[2016-09-25] MEDS ORDERED: POTASSIUM CHLORIDE 10 MEQ TABLET.SA PO ONE (14:00)
[2016-09-25] MEDS: CEFTRIAXONE 1 GM/D5W RTU 1 GM/50 ML RTUPB IV SCH (22:27)
[2016-09-25] MEDS: ATORVASTATIN CALCIUM 80 MG TABLET PO SCH (22:28)
[2016-09-25] MEDS: ACETAMINOPHEN 325 MG TABLET PO PRN (23:25)
[2016-09-26] MEDS: HYDRALAZINE HCL 50 MG TABLET PO SCH ×3 (02:23→18:28)
[2016-09-26] MEDS: CLONIDINE HCL 0.2 MG TABLET PO SCH ×3 (05:00→21:14)
[2016-09-26] MEDS: BUTALB/ACETAMINOPHEN/CAFFEINE 1 TAB EACH PO PRN ×2 (05:00→14:18)
[2016-09-26 07:35] LABS: ANION GAP 8 (5-19); BLOOD UREA NITROGEN 34 mg/dL (7-20); CALCIUM 8.2 mg/dL (8.4-10.2); CARBON DIOXIDE 24 mmol/L (22-30); CHLORIDE 105 mmol/L (98-107); CREATININE RESULT 1.52 mg/dL (0.52-1.25); GLUCOSE 195 mg/dL (75-110); SODIUM 137.3 mmol/L (137-145)
[2016-09-26] MEDS: ENOXAPARIN SODIUM INJ 30 MG/0.3 ML DISP.SYRIN SUBCUT SCH (08:27)
[2016-09-26] MEDS: INSULIN LISPRO 100 UNIT/ML 3 ML VIAL SUBCUT PRN ×4 (08:27→21:23)
[2016-09-26] MEDS ORDERED: FUROSEMIDE 20 MG TABLET PO SCH (10:00)
[2016-09-26] MEDS: METOPROLOL TARTRATE 100 MG TABLET PO SCH ×2 (11:05→21:15)
[2016-09-26] MEDS: ASPIRIN 81 MG TABLET, CHEWABLE PO SCH (11:05)
[2016-09-26] MEDS: POTASSIUM CHLORIDE 10 MEQ TABLET.SA PO SCH (11:05)
[2016-09-26] MEDS: AMLODIPINE BESYLATE 10 MG TABLET PO SCH (11:06)
[2016-09-26] MEDS: INSULIN GLARGINE,HUM.REC.ANLOG 300 UNIT/3 ML INSULN.PEN SUBCUT SCH ×2 (11:10→21:18)
[2016-09-26 15:37] LABS: BETA GLOBULIN URINE 24HR 9.3 % (.); GAMMA GLOBULIN URINE 24HR 13.1 % (.); PROTEIN TOTAL UR 24HR 4465.2 mg/24 hr (30.0-150.0)
[2016-09-26] MEDS ORDERED: LEVOFLOXACIN 500 MG TABLET PO ONE (16:42)
--- NOTE | 2016-09-26 16:48 | PDOC PROGRESS REPORT ---
Subjective Progress Note for:: 09/26/16 Subjective:: Patient is doing well without any new complaints. Blood pressure has been with systolic blood pressure from 150s to 160s as targeted. She said she just feels a little unsteady on getting up and walking but other than that she is feeling fine. Physical Exam Vital Signs: Temp Pulse Resp BP Pulse Ox 98.3 F 61 16 159/63 H 98 09/26/16 15:45 09/26/16 15:45 09/26/16 15:45 09/26/16 15:45 09/26/16 15:45 Intake & Output 09/25/16 09/26/16 09/27/16 06:59 06:59 06:59 Intake Total 750 1461 Output Total 1450 1000 Balance -700 461 Weight 97.1 kg 97.1 kg Exam: General appearance: PRESENT: no acute distress, cooperative, well-developed, well-nourished Head exam: PRESENT: atraumatic, normocephalic Eye exam: PRESENT: conjunctiva pink, PERRLA. ABSENT: scleral icterus Neck exam: ABSENT: JVD Respiratory exam: PRESENT: Normal breath sounds. ABSENT: crackles, rales, rhonchi, unlabored, wheezes Cardiovascular exam: PRESENT: Regular rate rhythm -+S1, +S2. ABSENT: diastolic murmur, systolic murmur GI/Abdominal exam: PRESENT: normal bowel sounds, soft. ABSENT: guarding, mass, tenderness Extremities exam: She has some grade 1 bilateral pitting edema Neurological exam: PRESENT: alert, awake, oriented to person, place and time. Skin exam: PRESENT: dry, warm, Results Laboratory Results: 09/24/16 06:40 09/26/16 06:58 09/26/16 06:58 Sodium 137.3 Potassium 4.0 Chloride 105 Carbon Dioxide 24 Anion Gap 8 BUN 34 H Creatinine 1.52 H Est GFR ( Amer) 41 L Est GFR (Non-Af Amer) 34 L Glucose 195 H Calcium 8.2 L 09/20/16 20:50 Blood Blood Culture - Final NO GROWTH IN 5 DAYS 09/20/16 19:45 Blood Blood Culture - Final NO GROWTH IN 5 DAYS 09/20/16 09/20/16 09/20/16 20:50 20:50 20:50 Creatine Kinase 156 H CK-MB (CK-2) 0.89 Troponin I 0.025 NT-Pro-B Natriuret Pep Cancelled 09/20/16 09/21/16 09/21/16 20:50 01:07 01:07 Creatine Kinase 112 CK-MB (CK-2) 1.23 Troponin I 0.050 NT-Pro-B Natriuret Pep 6430 H 09/21/16 09/21/16 07:15 07:15 Creatine Kinase 125 CK-MB (CK-2) 2.50 Troponin I 0.116 NT-Pro-B Natriuret Pep Impressions: Chest X-Ray 09/20/16 00:00 IMPRESSION: CARDIAC ENLARGEMENT WITHOUT FAILURE. Head CT 09/20/16 17:00 IMPRESSION: CHRONIC CHANGES OF ATROPHY AND MICROVASCULAR ISCHEMIA. NO ACUTE PROCESS. Head MRI 09/21/16 00:00 IMPRESSION: Negative for acute or sub-acute infarction.MINIMAL MICROVASCULAR ISCHEMIC CHANGE. Assessment & Plan - Diagnosis (1) ETTA (acute kidney injury) Is this a current diagnosis for this admission?: YesPlan: Improved to almost baseline kidney function with good urine output. (2) Acute renal tubular necrosis Is this a current diagnosis for this admission?: YesPlan: Resoling with improvement of kidney function. (3) Malignant hypertension Is this a current diagnosis for this admission?: YesPlan: Continue current blood pressure medication regimen. I will increase to Lasix 20 mg twice a day with the same potassium chloride of 20 mEq by mouth daily to start today. Follow-up results of workup for secondary causes of hypertension even as an outpatient. (4) Uncontrolled type 2 diabetes mellitus with complication Qualifiers: Diabetes mellitus mcc insulin use: with intermediate manager use Qualified Code(s): E11.8 - Type 2 diabetes mellitus with unspecified complications; E11.65 - Type 2 diabetes mellitus with hyperglycemia Is this a current diagnosis for this admission?: YesPlan: This needs better long-term control of blood pressure. PCP managing. (5) UTI (urinary tract infection) Qualifiers: Urinary tract infection type: site unspecified Hematuria presence: without hematuria Qualified Code(s): N39.0 - Urinary tract infection, site not specified Is this a current diagnosis for this admission?: YesPlan: Secondary to enterococcus faecium, ceftriaxone is not good antibiotic of choice. We'll start the patient on Levaquin. We will give her a dose of Levaquin 500 mg orally today followed by 250 mEq by mouth daily for a week. She can be discharged with this antibiotic. - Notes Notes: From nephrology standpoint , the patient can be safely discharged home with current blood pressure regimen and antibiotics. I will be happy to see her in my office in the next 2-3 weeks for follow-up. I will sign off at this point. - Time Time with patient: 15-25 minutes
[2016-09-26] MEDS: FUROSEMIDE 20 MG TABLET PO SCH (18:27)
--- NOTE | 2016-09-26 18:39 | PDOC PROGRESS REPORT ---
Subjective Progress Note for:: 09/26/16 Subjective:: She was seen by the bedside, she is seems to be improving slowly, hopefully discharge home soon Physical Exam Vital Signs: Temp Pulse Resp BP Pulse Ox 98.3 F 61 16 159/63 H 98 09/26/16 15:45 09/26/16 15:45 09/26/16 15:45 09/26/16 15:45 09/26/16 15:45 Intake & Output 09/25/16 09/26/16 09/27/16 06:59 06:59 06:59 Intake Total 750 1461 Output Total 1450 1000 Balance -700 461 Weight 97.1 kg 97.1 kg General appearance: PRESENT: no acute distress Eye exam: PRESENT: PERRLA Respiratory exam: PRESENT: clear to auscultation jeanette Cardiovascular exam: PRESENT: +S1, +S2 GI/Abdominal exam: PRESENT: soft Neurological exam: PRESENT: alert, CN II-XII grossly intact Results Laboratory Results: 09/24/16 06:40 09/26/16 06:58 09/26/16 06:58 Sodium 137.3 Potassium 4.0 Chloride 105 Carbon Dioxide 24 Anion Gap 8 BUN 34 H Creatinine 1.52 H Est GFR ( Amer) 41 L Est GFR (Non-Af Amer) 34 L Glucose 195 H Calcium 8.2 L 09/20/16 20:50 Blood Blood Culture - Final NO GROWTH IN 5 DAYS 09/20/16 19:45 Blood Blood Culture - Final NO GROWTH IN 5 DAYS 09/20/16 09/20/16 09/20/16 20:50 20:50 20:50 Creatine Kinase 156 H CK-MB (CK-2) 0.89 Troponin I 0.025 NT-Pro-B Natriuret Pep Cancelled 09/20/16 09/21/16 09/21/16 20:50 01:07 01:07 Creatine Kinase 112 CK-MB (CK-2) 1.23 Troponin I 0.050 NT-Pro-B Natriuret Pep 6430 H 09/21/16 09/21/16 07:15 07:15 Creatine Kinase 125 CK-MB (CK-2) 2.50 Troponin I 0.116 NT-Pro-B Natriuret Pep Impressions: Chest X-Ray 09/20/16 00:00 IMPRESSION: CARDIAC ENLARGEMENT WITHOUT FAILURE. Head CT 09/20/16 17:00 IMPRESSION: CHRONIC CHANGES OF ATROPHY AND MICROVASCULAR ISCHEMIA. NO ACUTE PROCESS. Head MRI 09/21/16 00:00 IMPRESSION: Negative for acute or sub-acute infarction.MINIMAL MICROVASCULAR ISCHEMIC CHANGE. Assessment & Plan - Diagnosis (1) Malignant hypertension Is this a current diagnosis for this admission?: Yes (2) Hypokalemia Is this a current diagnosis for this admission?: Yes (3) Uncontrolled type 2 diabetes mellitus with complication Qualifiers: Diabetes mellitus terminal clerk insulin use: with terminal clerk use Qualified Code(s): E11.8 - Type 2 diabetes mellitus with unspecified complications; E11.65 - Type 2 diabetes mellitus with hyperglycemia Is this a current diagnosis for this admission?: Yes (4) Leukocytosis Qualifiers: Leukocytosis type: unspecified Qualified Code(s): D72.829 - Elevated white blood cell count, unspecified Is this a current diagnosis for this admission?: Yes (5) ETTA (acute kidney injury) Is this a current diagnosis for this admission?: Yes (6) Acute tubular necrosis Is this a current diagnosis for this admission?: Yes
[2016-09-26] MEDS: ATORVASTATIN CALCIUM 80 MG TABLET PO SCH (21:13)
[2016-09-26] MEDS: ONDANSETRON HCL INJ/PF 4 MG/2 ML SDV IV PRN (21:26)
[2016-09-27] MEDS: HYDRALAZINE HCL 50 MG TABLET PO SCH ×3 (01:12→17:58)
[2016-09-27] MEDS: ACETAMINOPHEN 325 MG TABLET PO PRN ×2 (01:14→06:23)
[2016-09-27] MEDS: BUTALB/ACETAMINOPHEN/CAFFEINE 1 TAB EACH PO PRN ×3 (01:15→21:09)
[2016-09-27] MEDS: ONDANSETRON HCL INJ/PF 4 MG/2 ML SDV IV PRN ×4 (01:18→21:09)
[2016-09-27] MEDS: CLONIDINE HCL 0.2 MG TABLET PO SCH ×3 (05:20→21:42)
[2016-09-27] MEDS: INSULIN LISPRO 100 UNIT/ML 3 ML VIAL SUBCUT PRN ×4 (08:38→21:41)
[2016-09-27] MEDS: ENOXAPARIN SODIUM INJ 30 MG/0.3 ML DISP.SYRIN SUBCUT SCH (08:41)
[2016-09-27] MEDS: INSULIN GLARGINE,HUM.REC.ANLOG 300 UNIT/3 ML INSULN.PEN SUBCUT SCH ×2 (10:13→21:41)
[2016-09-27] MEDS: POTASSIUM CHLORIDE 10 MEQ TABLET.SA PO SCH (11:32)
[2016-09-27] MEDS: METOPROLOL TARTRATE 100 MG TABLET PO SCH ×2 (11:33→21:42)
[2016-09-27] MEDS: ASPIRIN 81 MG TABLET, CHEWABLE PO SCH (11:34)
[2016-09-27] MEDS: FUROSEMIDE 20 MG TABLET PO SCH ×2 (11:34→18:06)
[2016-09-27] MEDS: AMLODIPINE BESYLATE 10 MG TABLET PO SCH (11:34)
[2016-09-27] MEDS: LEVOFLOXACIN 250 MG TABLET PO SCH (11:40)
[2016-09-27] MEDS ORDERED: VALSARTAN 160 MG TABLET PO ONE (16:00)
--- NOTE | 2016-09-27 16:30 | PDOC PROGRESS REPORT ---
Subjective Progress Note for:: 09/27/16 Subjective:: She was seen by the bedside, she did not tolerate the Levaquin because of nausea , the 24-hour urine protein was 4462 mg consistent with nephrotic range proteinuria. There is associated hypoalbuminemia Physical Exam Vital Signs: Temp Pulse Resp BP Pulse Ox 97.7 F 64 18 173/72 H 97 09/27/16 15:31 09/27/16 15:31 09/27/16 15:31 09/27/16 15:31 09/27/16 15:31 Intake & Output 09/26/16 09/27/16 09/28/16 06:59 06:59 06:59 Intake Total 1461 1223 Output Total 1000 2200 Balance 461 -977 Weight 97.1 kg General appearance: PRESENT: no acute distress Eye exam: PRESENT: PERRLA Respiratory exam: PRESENT: clear to auscultation jeanette Cardiovascular exam: PRESENT: +S1, +S2 Extremities exam: PRESENT: other - Edema Neurological exam: PRESENT: alert Results Laboratory Results: 09/24/16 06:40 09/26/16 06:58 09/21/16 11:50 Ur Albumin 24 Hour 70.5 Ur Total Protein 24 Hr 4465.2 H U PEP M-Quique % 24 Hr Not Observed U PEP M-Quique 24 Hr TNP 09/20/16 09/20/16 09/20/16 20:50 20:50 20:50 Creatine Kinase 156 H CK-MB (CK-2) 0.89 Troponin I 0.025 NT-Pro-B Natriuret Pep Cancelled 09/20/16 09/21/16 09/21/16 20:50 01:07 01:07 Creatine Kinase 112 CK-MB (CK-2) 1.23 Troponin I 0.050 NT-Pro-B Natriuret Pep 6430 H 09/21/16 09/21/16 07:15 07:15 Creatine Kinase 125 CK-MB (CK-2) 2.50 Troponin I 0.116 NT-Pro-B Natriuret Pep Impressions: Chest X-Ray 09/20/16 00:00 IMPRESSION: CARDIAC ENLARGEMENT WITHOUT FAILURE. Head CT 09/20/16 17:00 IMPRESSION: CHRONIC CHANGES OF ATROPHY AND MICROVASCULAR ISCHEMIA. NO ACUTE PROCESS. Head MRI 09/21/16 00:00 IMPRESSION: Negative for acute or sub-acute infarction.MINIMAL MICROVASCULAR ISCHEMIC CHANGE. Assessment & Plan - Diagnosis (1) Malignant hypertension Is this a current diagnosis for this admission?: Yes (2) Hypokalemia Is this a current diagnosis for this admission?: Yes (3) Uncontrolled type 2 diabetes mellitus with complication Qualifiers: Diabetes mellitus exterminator helper termite insulin use: with snf use Qualified Code(s): E11.8 - Type 2 diabetes mellitus with unspecified complications; E11.65 - Type 2 diabetes mellitus with hyperglycemia Is this a current diagnosis for this admission?: Yes (4) Leukocytosis Qualifiers: Leukocytosis type: unspecified Qualified Code(s): D72.829 - Elevated white blood cell count, unspecified Is this a current diagnosis for this admission?: Yes (5) ETTA (acute kidney injury) Is this a current diagnosis for this admission?: Yes (6) Acute tubular necrosis Is this a current diagnosis for this admission?: Yes (7) Nephrotic range proteinuria Is this a current diagnosis for this admission?: YesPlan: Start Diovan 320 MG by mouth daily, continue furosemide (8) Urinary tract infection due to Enterococcus Is this a current diagnosis for this admission?: YesPlan: Discontinue Levaquin. Start Macrobid, she could not tolerate Levaquin because of nausea
[2016-09-27] MEDS ORDERED: METOLAZONE 5 MG TABLET PO ONE (17:00)
[2016-09-27 17:34] LABS: ALANINE AMINOTRANSFERASE 48 U/L (9-52); ALBUMIN 2.8 g/dL (3.5-5.0); ALKALINE PHOSPHATASE 124 U/L (38-126); ANION GAP 11 (5-19); ASPARTATE AMINO TRANSFERASE 27 U/L (14-36); BILIRUBIN,TOTAL 0.2 mg/dL (0.2-1.3); BLOOD UREA NITROGEN 33 mg/dL (7-20); CALCIUM 8.7 mg/dL (8.4-10.2); CARBON DIOXIDE 24 mmol/L (22-30); CHLORIDE 102 mmol/L (98-107); CREATININE RESULT 1.76 mg/dL (0.52-1.25); GLUCOSE 213 mg/dL (75-110); POTASSIUM 4.3 mmol/L (3.6-5.0); SODIUM 137.1 mmol/L (137-145); TOTAL PROTEIN 5.4 g/dL (6.3-8.2)
[2016-09-27 17:37] LABS: NORMETANEPHRINE URINE 796 ug/L (Undefined)
[2016-09-27] MEDS: NITROFURANTOIN MONOHYD/M-CRYST 100 MG CAPSULE PO SCH (18:04)
[2016-09-27] MEDS: ATORVASTATIN CALCIUM 80 MG TABLET PO SCH (21:42)
[2016-09-28] MEDS: HYDRALAZINE HCL 50 MG TABLET PO SCH ×3 (02:53→17:07)
[2016-09-28] MEDS: ONDANSETRON HCL INJ/PF 4 MG/2 ML SDV IV PRN ×4 (05:07→20:42)
[2016-09-28] MEDS: CLONIDINE HCL 0.2 MG TABLET PO SCH ×3 (05:07→21:58)
[2016-09-28 07:56] LABS: METANEPHRINE URINE 24HR 44 ug/24 hr (45-290); NORMETANEPHRINE URINE 24HR 318 ug/24 hr (82-500)
[2016-09-28] MEDS: METOLAZONE 5 MG TABLET PO SCH (09:01)
[2016-09-28] MEDS: POTASSIUM CHLORIDE 10 MEQ TABLET.SA PO SCH (09:01)
[2016-09-28] MEDS: METOPROLOL TARTRATE 100 MG TABLET PO SCH ×2 (09:02→21:58)
[2016-09-28] MEDS: NITROFURANTOIN MONOHYD/M-CRYST 100 MG CAPSULE PO SCH ×2 (09:02→17:10)
[2016-09-28] MEDS: VALSARTAN 160 MG TABLET PO SCH (09:02)
[2016-09-28] MEDS: ASPIRIN 81 MG TABLET, CHEWABLE PO SCH (09:03)
[2016-09-28] MEDS: FUROSEMIDE 20 MG TABLET PO SCH ×2 (09:03→17:10)
[2016-09-28] MEDS: INSULIN GLARGINE,HUM.REC.ANLOG 300 UNIT/3 ML INSULN.PEN SUBCUT SCH ×2 (09:03→21:57)
[2016-09-28] MEDS: AMLODIPINE BESYLATE 10 MG TABLET PO SCH (09:03)
[2016-09-28] MEDS: ENOXAPARIN SODIUM INJ 30 MG/0.3 ML DISP.SYRIN SUBCUT SCH (09:06)
[2016-09-28] MEDS: BUTALB/ACETAMINOPHEN/CAFFEINE 1 TAB EACH PO PRN ×2 (09:09→20:09)
[2016-09-28] MEDS: LEVOFLOXACIN 250 MG TABLET PO SCH (09:11)
[2016-09-28] MEDS: INSULIN LISPRO 100 UNIT/ML 3 ML VIAL SUBCUT PRN ×3 (09:18→21:57)
[2016-09-28 17:37] LABS: ALDOSTERONE URINE 4.86 ug/L (Not Estab.)
[2016-09-28] MEDS: ATORVASTATIN CALCIUM 80 MG TABLET PO SCH (21:58)
[2016-09-29] MEDS: HYDRALAZINE HCL 50 MG TABLET PO SCH ×3 (01:47→17:37)
[2016-09-29] MEDS: BUTALB/ACETAMINOPHEN/CAFFEINE 1 TAB EACH PO PRN (02:28)
[2016-09-29] MEDS: ONDANSETRON HCL INJ/PF 4 MG/2 ML SDV IV PRN ×2 (02:43→14:59)
[2016-09-29] MEDS: ACETAMINOPHEN 325 MG TABLET PO PRN ×2 (06:03→14:59)
[2016-09-29] MEDS: CLONIDINE HCL 0.2 MG TABLET PO SCH ×2 (06:03→14:58)
[2016-09-29 07:31] LABS: ALDOSTERONE 3.2 ng/dL (0.0-30.0)
[2016-09-29 07:31] LABS: ALDOSTERONE URINE 24HR 1.94 ug/24 hr (0.00-19.00)
[2016-09-29] MEDS: INSULIN LISPRO 100 UNIT/ML 3 ML VIAL SUBCUT PRN ×2 (08:16→17:37)
[2016-09-29] MEDS: AMLODIPINE BESYLATE 10 MG TABLET PO SCH (10:19)
[2016-09-29] MEDS: VALSARTAN 160 MG TABLET PO SCH (10:19)
[2016-09-29] MEDS: NITROFURANTOIN MONOHYD/M-CRYST 100 MG CAPSULE PO SCH ×2 (10:19→17:37)
[2016-09-29] MEDS: METOPROLOL TARTRATE 100 MG TABLET PO SCH (10:19)
[2016-09-29] MEDS: ASPIRIN 81 MG TABLET, CHEWABLE PO SCH (10:20)
[2016-09-29] MEDS: METOLAZONE 5 MG TABLET PO SCH (10:20)
[2016-09-29] MEDS: POTASSIUM CHLORIDE 10 MEQ TABLET.SA PO SCH (10:20)
[2016-09-29] MEDS: FUROSEMIDE 20 MG TABLET PO SCH ×2 (10:20→17:37)
[2016-09-29] MEDS: ENOXAPARIN SODIUM INJ 30 MG/0.3 ML DISP.SYRIN SUBCUT SCH (10:20)
[2016-09-29] MEDS: INSULIN GLARGINE,HUM.REC.ANLOG 300 UNIT/3 ML INSULN.PEN SUBCUT SCH (10:22)
--- NOTE | 2016-09-29 17:47 | PDOC PROGRESS REPORT ---
Subjective Progress Note for:: 10/05/16 Subjective:: Patient still, complained of nausea Physical Exam Vital Signs: Temp Pulse Resp BP Pulse Ox 97.9 F 63 16 165/67 H 97 09/28/16 16:00 09/28/16 19:00 09/28/16 16:00 09/28/16 16:00 09/28/16 16:00 Intake & Output 09/27/16 09/28/16 09/29/16 06:59 06:59 06:59 Intake Total 1223 555 700 Output Total 2200 2250 900 Balance -977 -1695 -200 General appearance: PRESENT: no acute distress Eye exam: PRESENT: PERRLA Cardiovascular exam: PRESENT: +S1, +S2 GI/Abdominal exam: PRESENT: soft Neurological exam: PRESENT: CN II-XII grossly intact Results Laboratory Results: 09/24/16 06:40 09/27/16 16:50 09/21/16 11:51 U Metanephrines 24 Hr 44 L U Normetanephrine 24h 318 09/20/16 09/20/16 09/20/16 20:50 20:50 20:50 Creatine Kinase 156 H CK-MB (CK-2) 0.89 Troponin I 0.025 NT-Pro-B Natriuret Pep Cancelled 09/20/16 09/21/16 09/21/16 20:50 01:07 01:07 Creatine Kinase 112 CK-MB (CK-2) 1.23 Troponin I 0.050 NT-Pro-B Natriuret Pep 6430 H 09/21/16 09/21/16 07:15 07:15 Creatine Kinase 125 CK-MB (CK-2) 2.50 Troponin I 0.116 NT-Pro-B Natriuret Pep Impressions: Chest X-Ray 09/20/16 00:00 IMPRESSION: CARDIAC ENLARGEMENT WITHOUT FAILURE. Head CT 09/20/16 17:00 IMPRESSION: CHRONIC CHANGES OF ATROPHY AND MICROVASCULAR ISCHEMIA. NO ACUTE PROCESS. Head MRI 09/21/16 00:00 IMPRESSION: Negative for acute or sub-acute infarction.MINIMAL MICROVASCULAR ISCHEMIC CHANGE. Assessment & Plan - Diagnosis (1) Malignant hypertension Is this a current diagnosis for this admission?: Yes (2) Hypokalemia Is this a current diagnosis for this admission?: Yes (3) Uncontrolled type 2 diabetes mellitus with complication Qualifiers: Diabetes mellitus buttermaker helper insulin use: with [facility] use Qualified Code(s): E11.8 - Type 2 diabetes mellitus with unspecified complications; E11.65 - Type 2 diabetes mellitus with hyperglycemia Is this a current diagnosis for this admission?: Yes (4) Leukocytosis Qualifiers: Leukocytosis type: unspecified Qualified Code(s): D72.829 - Elevated white blood cell count, unspecified Is this a current diagnosis for this admission?: Yes (5) ETTA (acute kidney injury) Is this a current diagnosis for this admission?: Yes (6) Acute tubular necrosis Is this a current diagnosis for this admission?: Yes (7) Nephrotic range proteinuria Is this a current diagnosis for this admission?: Yes (8) Urinary tract infection due to Enterococcus Is this a current diagnosis for this admission?: Yes
--- NOTE | 2016-09-29 18:43 | PDOC DISCHARGE SUMMARY ---
General - Admit/Disc Date/PCP Admission Date/Primary Care Provider: 09/20/16 19:03 QUINCY ALEJO, Discharge Date: 09/29/16 - Discharge Diagnosis (1) Malignant hypertension Is this a current diagnosis for this admission?: Yes (2) Hypokalemia Is this a current diagnosis for this admission?: Yes (3) Uncontrolled type 2 diabetes mellitus with complication Is this a current diagnosis for this admission?: Yes (4) Leukocytosis Is this a current diagnosis for this admission?: Yes (5) ETTA (acute kidney injury) Is this a current diagnosis for this admission?: Yes (6) Acute tubular necrosis Is this a current diagnosis for this admission?: Yes (7) Nephrotic range proteinuria Is this a current diagnosis for this admission?: Yes (8) Urinary tract infection due to Enterococcus Is this a current diagnosis for this admission?: Yes - Additional Information Home Medications: Aspirin [Aspirin 81 mg Chewable Tablet] 81 mg PO DAILY 09/21/16 Butalb/Acetaminophen/Caffeine [Fioricet (50-325-40 mg) Tablet] 1 tab PO Q6HP PRN 09/21/16 Canagliflozin/Metformin HCl [Invokamet Xr 150-1,000 mg Tab] 1 tab PO DAILY 09/21 Clonidine HCl 0.2 mg PO Q12 09/21/16 Metoprolol Tartrate [Lopressor 100 mg Tablet] 100 mg PO Q12 09/21/16 Nitroglycerin 0.4 mg SL PRN PRN 09/21/16 Amlodipine Besylate [Norvasc 10 mg Tablet] 10 mg PO DAILY #90 tablet 09/29/16 Furosemide 40 mg PO DAILY #90 ml 09/29/16 Metoprolol Succinate [Toprol XL 200 mg Tablet] 200 mg PO DAILY #90 tab.sr.24h Valsartan/Hydrochlorothiazide [Diovan Hct 320-25 mg Tablet] 1 each PO DAILY #90 tablet 09/29/16 History of Present Illness History of Present Illness: YG METZ is a 70 year old female, she came to the emergency room because of headache and vomiting and the blood pressure recorded in the emergency room was 253/104. I saw her in the office yesterday when she came for follow-up. She also complained of headache and the blood pressure recorded in the office yesterday was 280/120, I suggested hospital admission, but she preferred outpatient treatment. She was given tribenzor, /07/18 in the office and the blood pressure came down some, she was supposed to be on Tribenzor, metoprolol and clonidine, but apparently she was taking only metoprolol and clonidine, so the blood pressure was not optimally controlled.. She was admitted 08/07/2016 where she had right-sided hemicranial headache and on that admission. MRI head was done and it was negative, but at that time she was on that tremendous stress because her son was being charged for murder because her son was involved in heat of passion murder.. In the emergency room when she arrived, CT head was done and it was negative, but because she is vomiting with a headache admission to the hospital was advised and it is appropriate. She was started on intravenous Cardene infusion for the control of the blood pressure. Hospital Course Hospital Course: Patient was admitted because of malignant hypertension, she was started on Cardene infusion poorly controlled blood pressure, she developed acute kidney injury due to ATN, acute tubular necrosis. She was evaluated for secondary causes of hypertension, the 24-hour urine for free cortisol, metanephrines, catecholamines, aldosterone were all normal. The serum aldosterone /renin activity ratio was normal. She also have nephrotic range proteinuria, the urine protein was 4465, she was evaluated for paraproteinemia and the urine electrophoresis was negative for myeloma proteins, she also UTI. This was treated with IV antibiotic initially she was empirically treated with intravenous Rocephin and this wastransition to by mouth Macrobid. Culture result came back positive for enterococcus faecalis. Physical Exam Vital Signs: Temp Pulse Resp BP Pulse Ox 98.4 F 71 16 188/76 H 95 09/29/16 15:25 09/29/16 15:25 09/29/16 15:25 09/29/16 15:25 09/29/16 15:25 Intake & Output 09/28/16 09/29/16 09/30/16 06:59 06:59 06:59 Intake Total 173 2677 809 Output Total 2250 7560 1800 Balance -1695 -563 -991 General appearance: PRESENT: no acute distress, well-developed Head exam: PRESENT: atraumatic, normocephalic Eye exam: PRESENT: conjunctiva pink, EOMI, PERRLA Neck exam: PRESENT: full ROM Respiratory exam: PRESENT: clear to auscultation jeanette Cardiovascular exam: PRESENT: RRR, +S1, +S2 Pulses: PRESENT: normal dorsalis pedis pul, +2 pedal pulses bilateral Vascular exam: PRESENT: normal capillary refill GI/Abdominal exam: PRESENT: normal bowel sounds, soft Rectal exam: PRESENT: deferred Neurological exam: PRESENT: alert, awake, oriented to person, oriented to place , oriented to time, oriented to situation, CN II-XII grossly intact Psychiatric exam: PRESENT: appropriate affect, normal mood Skin exam: PRESENT: dry, intact, warm Results Laboratory Results: 09/24/16 06:40 09/27/16 16:50 09/21/16 11:51 Ur Aldosterone 24 Hr 1.94 09/20/16 09/20/16 09/20/16 20:50 20:50 20:50 Creatine Kinase 156 H CK-MB (CK-2) 0.89 Troponin I 0.025 NT-Pro-B Natriuret Pep Cancelled 09/20/16 09/21/16 09/21/16 20:50 01:07 01:07 Creatine Kinase 112 CK-MB (CK-2) 1.23 Troponin I 0.050 NT-Pro-B Natriuret Pep 6430 H 09/21/16 09/21/16 07:15 07:15 Creatine Kinase 125 CK-MB (CK-2) 2.50 Troponin I 0.116 NT-Pro-B Natriuret Pep Impressions: Chest X-Ray 09/20/16 00:00 IMPRESSION: CARDIAC ENLARGEMENT WITHOUT FAILURE. Head CT 09/20/16 17:00 IMPRESSION: CHRONIC CHANGES OF ATROPHY AND MICROVASCULAR ISCHEMIA. NO ACUTE PROCESS. Head MRI 09/21/16 00:00 IMPRESSION: Negative for acute or sub-acute infarction.MINIMAL MICROVASCULAR ISCHEMIC CHANGE.
[2016-09-29 18:51] VITALS: BP 158/64
== END 2016-09-29 19:30 | disposition home or self-care (01) | DRG 304 ==
LOC: ER 14:00 → EH 19:03 → ICU 09-21 17:15 → 3S 09-24 19:30
PROVIDERS: ADMIT Internal Medicine; ATTEND Internal Medicine
DX: I16.1 Hypertensive emergency (principal); N17.0 Acute kidney failure with tubular necrosis; N39.0 Urinary tract infection, site not specified; B95.2 Enterococcus as the cause of diseases classified elsewhere; E87.6 Hypokalemia; E11.65 Type 2 diabetes mellitus with hyperglycemia; I25.10 Atherosclerotic heart disease of native coronary artery without angina pectoris; E78.5 Hyperlipidemia, unspecified; M19.90 Unspecified osteoarthritis, unspecified site; G47.30 Sleep apnea, unspecified; Z79.82 Long term (current) use of aspirin; Z79.899 Other long term (current) drug therapy; Z95.5 Presence of coronary angioplasty implant and graft; Z85.038 Personal history of other malignant neoplasm of large intestine; Z88.8 Allergy status to other drugs, medicaments and biological substances; Z90.710 Acquired absence of both cervix and uterus; Z79.84 Long term (current) use of oral hypoglycemic drugs
CPT/HCPCS: 36415; 70450; 70551; 71020; 80048; 80053; 80061; 80076; 80301; 81001; 82088; 82150; 82530; 82550; 82553; 82570; 82962; 83036; 83690; 83735; 83880; 84100; 84133; 84156; 84166; 84244; 84300; 84439; 84443; 84484; 85025; 85610; 85730; 87040; 87086; 87088; 87186; 93005; 93010; 93306; 93975; 96365; 96375; 99291; G0479; J0696; J1650; J1815; J2060; J2405; J3490; J8499

== ENCOUNTER 2016-12-11 04:04 | Emergency (ER) | payer MEDICARE, OTHER ==
[2016-12-11] MEDS ORDERED: ONDANSETRON 4 MG TAB.RAPDIS PO ONE (05:40)
[2016-12-11] MEDS ORDERED: NORMAL SALINE 1000 ML 1,000 ML IV ONE ×2 (06:44→08:20)
[2016-12-11] MEDS ORDERED: ONDANSETRON HCL INJ/PF 4 MG/2 ML SDV IV ONE (06:44)
[2016-12-11] MEDS ORDERED: ONDANSETRON HCL INJ/PF 4 MG/2 ML SDV ONE (06:46)
[2016-12-11 06:49] LABS: ABSOLUTE BASOPHILS # (AUTO) 0.1 10^3/uL (0.0-0.2); ABSOLUTE LYMPHOCYTES (AUTO) 1.5 10^3/uL (0.5-4.7); ABSOLUTE NEUT (AUTO) 14.1 10^3/uL (1.7-8.2); BASOPHILS % (AUTO) 0.6 % (0-2); HEMATOCRIT 41.8 % (36.0-47.0); HEMOGLOBIN 14.1 g/dL (12.0-15.5); HGB HCT DIFFERENCE 0.5; LYMPHOCYTES % (AUTO) 8.8 % (13-45); MEAN CORPUSCULAR HEMOGLOBIN 25.2 pg (27.0-33.4); MEAN CORPUSCULAR HGB CONC 33.7 g/dL (32.0-36.0); MEAN CORPUSCULAR VOLUME 75 fl (80-97); MONOCYTES % (AUTO) 6.1 % (3-13); RED BLOOD COUNT 5.59 10^6/uL (3.72-5.28); RED CELL DISTRIBUTION WIDTH 14.8 % (11.5-14.0); SEGMENTED NEUTROPHILS % (AUTO) 84.5 % (42-78); WHITE BLOOD COUNT 16.7 10^3/uL (4.0-10.5)
[2016-12-11 06:56] LABS: ALANINE AMINOTRANSFERASE 25 U/L (9-52); ALBUMIN 4.1 g/dL (3.5-5.0); ALKALINE PHOSPHATASE 129 U/L (38-126); ASPARTATE AMINO TRANSFERASE 23 U/L (14-36); BILIRUBIN,TOTAL 0.6 mg/dL (0.2-1.3); BLOOD UREA NITROGEN 26 mg/dL (7-20); CREATINE KINASE 53 U/L (30-135); CREATININE RESULT 1.46 mg/dL (0.52-1.25); LIPASE 40.9 U/L (23-300); TOTAL PROTEIN 7.6 g/dL (6.3-8.2)
[2016-12-11 07:08] LABS: CARBON DIOXIDE 24 mmol/L (22-30); CREATINE KINASE MB 1.66 ng/mL (<4.55); POTASSIUM 3.2 mmol/L (3.6-5.0); SODIUM 144.4 mmol/L (137-145)
[2016-12-11] MEDS ORDERED: METOCLOPRAMIDE HCL INJ/PF 10 MG/2 ML SDV IV ONE (07:12)
[2016-12-11 07:14] LABS: CHLORIDE 95 mmol/L (98-107)
[2016-12-11 07:15] LABS: ANION GAP 25 (5-19)
[2016-12-11 07:17] LABS: GLUCOSE 484 mg/dL (75-110); TROPONIN I 0.053 ng/mL
[2016-12-11 08:07] LABS: VENOUS BLOOD BASE EXCESS 2.9 mmol/L; VENOUS BLOOD HCO3 26.8 mmol/L (20-32); VENOUS BLOOD PCO2 38.6 mmHg (35-63); VENOUS BLOOD PH 7.46 (7.30-7.42)
--- NOTE | 2016-12-11 08:20 | ER Document Report ---
ED General - General Chief Complaint: Chest Pain Stated Complaint: CHEST PAIN Mode of Arrival: Ambulatory Information source: Patient Notes: 71-year-old female presents with complaints of nausea and vomiting over the past few days associated with generalized abdominal pain. Patient denies any fevers or chills states she feels dehydrated. Patient has not been able to hold down her blood pressure medication TRAVEL OUTSIDE OF THE [place] IN LAST 30 DAYS: No - HPI Onset: Other - 2 three-day duration Onset/Duration: Persistent Quality of pain: Cramping Severity: Mild Pain Level: 1 Associated symptoms: Nausea, Vomiting Exacerbated by: Denies Relieved by: Denies Similar symptoms previously: No Recently seen / treated by doctor: No - Related Data Allergies/Adverse Reactions: codeine [Codeine] Allergy (Mild, Verified 12/11/16 04:25) meperidine HCl [From Demerol] Allergy (Mild, Verified 12/11/16 04:25) Past Medical History - Social History Smoking Status: Never Smoker Cigarette use (# per day): No Chew tobacco use (# tins/day): No Smoking Education Provided: No Frequency of alcohol use: None Drug Abuse: None Family History: Reviewed & Not Pertinent - Past Medical History Cardiac Medical History: Reports: Hx Coronary Artery Disease, Hx Hypercholesterolemia, Hx Hypertension Neurological Medical History: Denies: Hx Seizures Endocrine Medical History: Reports: Hx Diabetes Mellitus Type 1, Hx Diabetes Mellitus Type 2 - Diagnosed about 12 years ago Renal/ Medical History: Reports: Hx Ovarian Cysts. Denies: Hx Peritoneal Dialysis Malignancy Medical History: Reports: Hx Colorectal Cancer - Status post colon resection. Musculoskeltal Medical History: Reports Hx Arthritis Psychiatric Medical History: Denies: Hx Depression Past Surgical History: Reports: Hx Cardiac Catheterization - stents x 2, Hx Gynecologic Surgery, Hx Hysterectomy, Hx Tubal Ligation, Other - Colon resection - Immunizations Immunizations up to date: Yes Hx Diphtheria, Pertussis, Tetanus Vaccination: Yes Review of Systems - Review of Systems Notes: REVIEW OF SYSTEMS: CONSTITUTIONAL : Denies fever, chills, or sweats. Denies recent illness. EENT: Denies eye, ear, throat, or mouth pain or symptoms. Denies nasal or sinus congestion or discharge. Denies throat, tongue, or mouth swelling or difficulty swallowing. CARDIOVASCULAR: Denies chest pain. Denies palpitations or racing or irregular heart beat. Denies ankle edema. RESPIRATORY: Denies cough, cold, or chest congestion. Denies shortness of breath, difficulty breathing, or wheezing. GASTROINTESTINAL: Admits nausea vomiting GENITOURINARY: Denies difficulty urinating, painful urination, burning, frequency, blood in urine, or discharge. FEMALE GENITOURINARY: Denies vaginal bleeding, heavy or abnormal periods, irregular periods. Denies vaginal discharge or odor. MUSCULOSKELETAL: Denies back or neck pain or stiffness. Denies joint pain or swelling. SKIN: Denies rash, lesions or sores. HEMATOLOGIC : Denies easy bruising or bleeding. LYMPHATIC: Denies swollen, enlarged glands. NEUROLOGICAL: Denies confusion or altered mental status. Denies passing out or loss of consciousness. Denies dizziness or lightheadedness. Denies headache. Denies weakness or paralysis or loss of use of either side. Denies problems with gait or speech. Denies sensory loss, numbness, or tingling. Denies seizures. PSYCHIATRIC: Denies anxiety or stress. Denies depression, suicidal ideation, or homicidal ideation. ALL OTHER SYSTEMS REVIEWED AND NEGATIVE. Dictation was performed using [employer] voice recognition software PHYSICAL EXAMINATION: GENERAL: Well-appearing, well-nourished and in mild distress actively vomiting HEAD: Atraumatic, normocephalic. EYES: Pupils equal round and reactive to light, extraocular movements intact, conjunctiva are normal. ENT: Nares patent, oropharynx clear without exudates. Moist mucous membranes. NECK: Normal range of motion, supple without lymphadenopathy LUNGS: Breath sounds clear to auscultation bilaterally and equal. No wheezes rales or rhonchi. HEART: Regular rate and rhythm without murmurs ABDOMEN: Soft, nontender, nondistended abdomen. No guarding, no rebound. No masses appreciated. Female : deferred Musculoskeletal: Normal range of motion, no pitting or edema. No cyanosis. NEUROLOGICAL: Cranial nerves grossly intact. Normal speech, normal gait. Normal sensory, motor exams PSYCH: Normal mood, normal affect. SKIN: Warm, Dry, normal turgor, no rashes or lesions noted. Physical Exam - Vital signs Vitals: Pulse Ox 100 12/11/16 05:25 Course - Re-evaluation Re-evalutation: 12/11/16 08:19 Patient is noted to have an elevated white count, hyperglycemia with renal insufficiency. VBG notes no acidosis. Patient has been bolused fluids CT abdomen has been ordered 12/11/16 13:57 Before meals has been reevaluated multiple times notes significant improvement of her symptoms. Patient was very appreciative of her care. repeat lab work notes significant improvement as well. I will discharge home once fluids have finished CT noted no acute abnormality After performing a Medical Screening Examination, I estimate there is LOW risk for ACUTE APPENDICITIS, BOWEL OBSTRUCTION, ACUTE CHOLECYSTITIS, PERFORATED DIVERTICULITIS, INCARCERATED HERNIA, PANCREATITIS, PELVIC INFLAMMATORY DISEASE, PERFORATED ULCER, ECTOPIC , or TUBO-OVARIAN ABSCESS, thus I consider the discharge disposition reasonable. Also, there is no evidence or peritonitis , sepsis, or toxicity. The patient and I have discussed the diagnosis and risks , and we agree with discharging home with close follow-up with the understanding that symptoms and presentations can change. We also discussed returning to the Emergency Department immediately if new or worsening symptoms occur. We have discussed the symptoms which are most concerning (e.g., bloody stool, fever, changing or worsening pain, vomiting) that necessitate immediate return. - Vital Signs Vital signs: Temp Pulse Resp BP Pulse Ox 12 209/87 H 97 12/11/16 08:23 12/11/16 07:01 12/11/16 08:23 - Laboratory Result Diagrams: 12/11/16 06:35 12/11/16 12:30 Laboratory results interpreted by me: 12/11/16 12/11/16 12/11/16 06:35 06:35 07:50 WBC 16.7 H RBC 5.59 H MCV 75 L MCH 25.2 L RDW 14.8 H Seg Neutrophils % 84.5 H Lymphocytes % 8.8 L Absolute Neutrophils 14.1 H VBG pH 7.46 H Potassium 3.2 L Chloride 95 L Anion Gap 25 H BUN 26 H Creatinine 1.46 H Est GFR ( Amer) 43 L Est GFR (Non-Af Amer) 35 L Glucose 484 H* Alkaline Phosphatase 129 H Albumin Urine Protein Urine Glucose (UA) Urine Ketones 12/11/16 12/11/16 12:30 12:30 WBC RBC MCV MCH RDW Seg Neutrophils % Lymphocytes % Absolute Neutrophils VBG pH Potassium 3.5 L Chloride Anion Gap BUN 24 H Creatinine 1.31 H Est GFR ( Amer) 48 L Est GFR (Non-Af Amer) 40 L Glucose 383 H Alkaline Phosphatase Albumin 3.4 L Urine Protein >=500 H Urine Glucose (UA) >=500 H Urine Ketones 20 H - Diagnostic Test Radiology reviewed: Image reviewed, Reports reviewed Discharge - Discharge Clinical Impression: ETTA (acute kidney injury), Hypokalemia Nausea & vomiting Qualifiers: Vomiting type: unspecified Vomiting Intractability: non-intractable Qualified Code(s): R11.2 - Nausea with vomiting, unspecified Hypertension Qualifiers: Hypertension type: essential hypertension Qualified Code(s): I10 - Essential ( primary) hypertension Condition: Stable Disposition: HOME, SELF-CARE Instructions: Vomiting ([facility]) Prescriptions: Metoclopramide HCl [Reglan] 10 mg PO Q6 #20 tablet Referrals: QUINCY ALEJO MD [Primary Care Provider] - Follow up tomorrow
[2016-12-11] MEDS ORDERED: NORMAL SALINE 1000 ML 1,000 ML IV PRN (08:47)
[2016-12-11] MEDS ORDERED: POTASSIUM CHLORIDE 10 MEQ TABLET.SA PO ONE (08:47)
[2016-12-11 12:51] LABS: APPEARANCE,URINE SLIGHTLY-CLOUDY; BILIRUBIN,URINE NEGATIVE (NEGATIVE); GLUCOSE, URINE >=500 mg/dL (NEGATIVE); KETONES,URINE 20 mg/dL (NEGATIVE); LEUKOCYTE ESTERASE,URINE NEGATIVE (NEGATIVE); NITRITE,URINE NEGATIVE (NEGATIVE); PROTEIN,URINE >=500 mg/dL (NEGATIVE); URINE SPECIFIC GRAVITY 1.027; UROBILINOGEN,URINE NEGATIVE mg/dL (<2.0)
[2016-12-11 13:08] LABS: ALANINE AMINOTRANSFERASE 24 U/L (9-52); ALBUMIN 3.4 g/dL (3.5-5.0); ALKALINE PHOSPHATASE 100 U/L (38-126); ANION GAP 18 (5-19); ASPARTATE AMINO TRANSFERASE 27 U/L (14-36); BILIRUBIN,DIRECT 0.4 mg/dL (0.0-0.4); BILIRUBIN,TOTAL 0.6 mg/dL (0.2-1.3); BLOOD UREA NITROGEN 24 mg/dL (7-20); CALCIUM 8.5 mg/dL (8.4-10.2); CARBON DIOXIDE 23 mmol/L (22-30); CHLORIDE 103 mmol/L (98-107); CREATININE RESULT 1.31 mg/dL (0.52-1.25); GLUCOSE 383 mg/dL (75-110); POTASSIUM 3.5 mmol/L (3.6-5.0); SODIUM 144.4 mmol/L (137-145); TOTAL PROTEIN 6.6 g/dL (6.3-8.2)
--- NOTE | 2016-12-11 13:48 | EKG REPORT ---
SEVERITY:- ABNORMAL ECG - SINUS TACHYCARDIA VENTRICULAR PREMATURE COMPLEX PROBABLE LEFT ATRIAL ABNORMALITY INCOMPLETE RIGHT BUNDLE BRANCH BLOCK LVH WITH IVCD, LAD AND SECONDARY REPOL ABNRM OLD ANTERIOR [place] : Confirmed by: Tuan Hirsch MD 11-Dec-2016 13:47:30
[2016-12-11 14:08] VITALS: BP 200/83
== END 2016-12-11 14:23 | disposition home or self-care (01) ==
LOC: ER 04:04
DX: N17.9 Acute kidney failure, unspecified (principal); E87.6 Hypokalemia; R11.2 Nausea with vomiting, unspecified; R10.84 Generalized abdominal pain; D72.829 Elevated white blood cell count, unspecified; E11.65 Type 2 diabetes mellitus with hyperglycemia; I25.10 Atherosclerotic heart disease of native coronary artery without angina pectoris; I10 Essential (primary) hypertension; Z87.42 Personal history of other diseases of the female genital tract; Z90.49 Acquired absence of other specified parts of digestive tract; Z85.048 Personal history of other malignant neoplasm of rectum, rectosigmoid junction, and anus; Z98.61 Coronary angioplasty status; Z88.5 Allergy status to narcotic agent; Z79.899 Other long term (current) drug therapy
CPT/HCPCS: 93005; 99285; 96361; 96374; 96375; 36415; 82553; 82550; 83690; 85025; 80053; 81001; 84484; 82803; 71020; 74177; 93010; A9270 ×2; J2765; J2405; J7030; S0119

== ENCOUNTER 2017-01-15 05:43 | Inpatient (IN) | payer MEDICARE, OTHER ==
[2017-01-15] MEDS ORDERED: ASPIRIN 81 MG TABLET, CHEWABLE PO ONE (05:45)
--- NOTE | 2017-01-15 06:08 | ER Document Report ---
ED General - General Mode of Arrival: Ambulatory Information source: Patient, Relative TRAVEL OUTSIDE OF THE [place] IN LAST 30 DAYS: No - HPI Patient complains to provider of: Vomiting Onset: This morning - 1092-1803 Onset/Duration: Sudden, Persistent Associated symptoms: Chest pain, Nausea, Vomiting <PALMIRA SAVAGE - Last Filed: 01/15/17 06:18> <NANCIE CUEVAS - Last Filed: 01/15/17 10:14> - General Chief Complaint: Chest Pain > 30 Stated Complaint: CHEST PAIN Notes: Patient is a 71-year-old female presenting to the emergency department accompanied by her concerned of nausea and vomiting which began this morning at approximately [id number]. Patient also admits to chest pain that also began this morning after the vomiting. Patient states that she felt good when she went to bed last night. Patient has a history 2 cardiac stents and colorectal cancer. (PALMIRA SAVAGE) - Related Data Allergies/Adverse Reactions: codeine [Codeine] Allergy (Mild, Verified 01/15/17 05:53) meperidine HCl [From Demerol] Allergy (Mild, Verified 01/15/17 05:53) Past Medical History - General Information source: Patient - Social History Smoking Status: Never Smoker Family History: Reviewed & Not Pertinent Patient has suicidal ideation: No Patient has homicidal ideation: No - Past Medical History Cardiac Medical History: Reports: Hx Coronary Artery Disease, Hx Hypercholesterolemia, Hx Hypertension Endocrine Medical History: Reports: Hx Diabetes Mellitus Type 2 - Diagnosed about 12 years ago Renal/ Medical History: Reports: Hx Ovarian Cysts Malignancy Medical History: Reports: Hx Colorectal Cancer - Status post colon resection. Musculoskeltal Medical History: Reports Hx Arthritis Past Surgical History: Reports: Hx Cardiac Catheterization - stents x 2, Hx Gynecologic Surgery, Hx Hysterectomy, Hx Tubal Ligation, Other - Colon resection - Immunizations Immunizations up to date: Yes Hx Diphtheria, Pertussis, Tetanus Vaccination: Yes <PALMIRA SAVAGE - Last Filed: 01/15/17 06:18> Review of Systems - Review of Systems Constitutional: No symptoms reported EENT: No symptoms reported Cardiovascular: See HPI, Chest pain Respiratory: No symptoms reported Gastrointestinal: See HPI, Nausea, Vomiting Genitourinary: No symptoms reported Female Genitourinary: No symptoms reported Musculoskeletal: No symptoms reported Skin: No symptoms reported Hematologic/Lymphatic: No symptoms reported Neurological/Psychological: No symptoms reported -: Yes All other systems reviewed and negative <MAIKEL SAVAGESSICA - Last Filed: 01/15/17 06:18> Physical Exam - Vital signs Interpretation: Hypertensive - General General appearance: Alert - HEENT Head: Normocephalic, Atraumatic Eyes: Normal Pupils: PERRL - Respiratory Respiratory status: No respiratory distress Chest status: Nontender Breath sounds: Normal Chest palpation: Normal - Cardiovascular Rhythm: Regular Heart sounds: Normal auscultation Murmur: No - Abdominal Inspection: Obese Distension: No distension Bowel sounds: Normal Tenderness: Nontender - Back Back: Normal, Nontender - Extremities General upper extremity: Normal inspection, Nontender General lower extremity: Normal inspection, Nontender - Neurological Neuro grossly intact: Yes Cognition: Normal Orientation: AAOx4 Jamal Coma Scale Eye Opening: Spontaneous Jamal Coma Scale Verbal: Oriented Jamal Coma Scale Motor: Obeys Commands [place]bee Coma Scale Total: 15 Speech: Normal - Psychological Associated symptoms: Normal affect, Normal mood - Skin Skin Temperature: Warm Skin Moisture: Dry Skin Color: Normal <JANETTEPALMIRA - Last Filed: 01/15/17 06:18> Course - Laboratory Result Diagrams: 01/15/17 06:30 01/15/17 06:30 - EKG Interpretation by Mi EKG shows normal: Sinus rhythm. abnormal: Intervals - Prolonged QT [place]/QRS: LAHB/LAFB Voltage: Consistant with LVH P Waves: LAE When compared to previous EKG there are: Changes noted - New lateral T-wave inversions compared to 12/11/2016, but the same changes were present back in August 2016. - Consults Dr. Alejo Time consulted: 10:05 Consulted provider: will come to ER <NANCIE CUEVAS - Last Filed: 01/15/17 10:14> - Vital Signs Vital signs: Temp Pulse Resp BP Pulse Ox 98 F 81 18 224/103 H 98 01/15/17 05:53 01/15/17 05:53 01/15/17 07:11 01/15/17 07:11 01/15/17 07:11 - Laboratory Laboratory results interpreted by me: 01/15/17 01/15/17 01/15/17 06:30 06:30 09:41 WBC 10.7 H RBC 5.56 H MCV 75 L MCH 25.8 L RDW 15.2 H Seg Neutrophils % 81.1 H Absolute Neutrophils 8.7 H Potassium 3.0 L* Chloride 96 L BUN 28 H Creatinine 1.62 H Est GFR ( Amer) 38 L Est GFR (Non-Af Amer) 31 L Glucose 367 H POC Glucose 374 H Direct Bilirubin 0.5 H AST 40 H Alkaline Phosphatase 177 H Total Protein 8.5 H Critical Care Note - Critical Care Note Total time excluding time spent on procedures (mins): 35 <NANCIE CUEVAS - Last Filed: 01/15/17 10:14> Discharge <PALMIRA SAVAGE - Last Filed: 01/15/17 06:18> - Discharge Admitting Provider: Mamie Unit Admitted: Telemetry <NANCIE CUEVAS - Last Filed: 01/15/17 10:14> - Discharge Clinical Impression: Uncontrolled hypertension, Hypokalemia Nausea and vomiting Qualifiers: Vomiting type: unspecified Vomiting Intractability: non-intractable Qualified Code(s): R11.2 - Nausea with vomiting, unspecified Hyperglycemia due to type 2 diabetes mellitus Qualifiers: Diabetes mellitus prison insulin use: without watermelon inspector use Qualified Code(s ): E11.65 - Type 2 diabetes mellitus with hyperglycemia Condition: Good Disposition: ADMITTED INPATIENT Referrals: QUINCY ALEJO MD [Primary Care Provider] - Follow up as needed Scribe Attestation: 01/15/17 10:13 I personally performed the services described in the documentation, reviewed and edited the documentation which was dictated to the scribe in my presence, and it accurately records my words and actions. (NANCIE CUEVAS) Scribe Documentation - Scribe Written by Scribe:: Palmira Savage 01/15/2017 [id number] acting as scribe for :: Patel <PALMIRA SAVAGE - Last Filed: 01/15/17 06:18>
[2017-01-15] MEDS ORDERED: ONDANSETRON 4 MG TAB.RAPDIS PO ONE (06:18)
[2017-01-15 06:43] LABS: ABSOLUTE BASOPHILS # (AUTO) 0.1 10^3/uL (0.0-0.2); ABSOLUTE EOSINOPHILS # (AUTO) 0.1 10^3/uL (0.0-0.6); ABSOLUTE LYMPHOCYTES (AUTO) 1.4 10^3/uL (0.5-4.7); ABSOLUTE MONOCYTES (AUTO) 0.4 10^3/uL (0.1-1.4); ABSOLUTE NEUT (AUTO) 8.7 10^3/uL (1.7-8.2); BASOPHILS % (AUTO) 0.9 % (0-2); EOSINOPHILS % (AUTO) 0.6 % (0-6); HEMATOCRIT 41.7 % (36.0-47.0); HEMOGLOBIN 14.4 g/dL (12.0-15.5); HGB HCT DIFFERENCE 1.5; LYMPHOCYTES % (AUTO) 13.5 % (13-45); MEAN CORPUSCULAR HEMOGLOBIN 25.8 pg (27.0-33.4); MEAN CORPUSCULAR HGB CONC 34.5 g/dL (32.0-36.0); MEAN CORPUSCULAR VOLUME 75 fl (80-97); MONOCYTES % (AUTO) 3.9 % (3-13); RED BLOOD COUNT 5.56 10^6/uL (3.72-5.28); RED CELL DISTRIBUTION WIDTH 15.2 % (11.5-14.0); SEGMENTED NEUTROPHILS % (AUTO) 81.1 % (42-78); WHITE BLOOD COUNT 10.7 10^3/uL (4.0-10.5)
[2017-01-15 06:58] LABS: ALANINE AMINOTRANSFERASE 26 U/L (9-52); ALBUMIN 4.4 g/dL (3.5-5.0); ALKALINE PHOSPHATASE 177 U/L (38-126); ANION GAP 17 (5-19); ASPARTATE AMINO TRANSFERASE 40 U/L (14-36); BILIRUBIN,DIRECT 0.5 mg/dL (0.0-0.4); BILIRUBIN,TOTAL 0.9 mg/dL (0.2-1.3); BLOOD UREA NITROGEN 28 mg/dL (7-20); CALCIUM 9.8 mg/dL (8.4-10.2); CARBON DIOXIDE 30 mmol/L (22-30); CHLORIDE 96 mmol/L (98-107); CREATINE KINASE 66 U/L (30-135); CREATININE RESULT 1.62 mg/dL (0.52-1.25); GLUCOSE 367 mg/dL (75-110); SODIUM 142.8 mmol/L (137-145); TOTAL PROTEIN 8.5 g/dL (6.3-8.2)
[2017-01-15 07:10] LABS: CREATINE KINASE MB 1.96 ng/mL (<4.55); TROPONIN I 0.016 ng/mL
[2017-01-15] MEDS ORDERED: METOCLOPRAMIDE HCL INJ/PF 10 MG/2 ML SDV IV ONE ×2 (07:13→10:40)
[2017-01-15] MEDS ORDERED: HYDRALAZINE HCL INJ/PF 20 MG/1 ML SDV IV ONE ×2 (07:13→09:34)
[2017-01-15] MEDS ORDERED: DIPHENHYDRAMINE HCL 50 MG/ML VIAL IV ONE (08:04)
[2017-01-15] MEDS ORDERED: LORAZEPAM INJ 2 MG/1 ML VIAL IV ONE (08:04)
[2017-01-15] MEDS ORDERED: NORMAL SALINE 1000 ML 1,000 ML IV ONE (08:05)
[2017-01-15] MEDS ORDERED: POTASSIUM CHLORIDE 20 MEQ/15 ML UDCUP PO ONE (08:05)
--- NOTE | 2017-01-15 10:47 | EKG REPORT ---
SEVERITY:- ABNORMAL ECG - SINUS RHYTHM PROBABLE LEFT ATRIAL ABNORMALITY LEFT ANTERIOR FASCICULAR BLOCK LVH WITH SECONDARY REPOLARIZATION ABNORMALITY PROLONGED QT INTERVAL : Confirmed by: Kezia Mensah 15-Jan-2017 10:46:46
[2017-01-15] MEDS ORDERED: ONDANSETRON HCL INJ/PF 4 MG/2 ML SDV ONE (11:57)
[2017-01-15] MEDS ORDERED: ONDANSETRON HCL INJ/PF 4 MG/2 ML SDV IV PRN (14:18)
[2017-01-15] MEDS: ONDANSETRON HCL INJ/PF 4 MG/2 ML SDV IV PRN ×2 (17:56→21:52)
[2017-01-15] MEDS ORDERED: NORMAL SALINE 1000 ML 1,000 ML IV PRN (18:01)
[2017-01-15 19:10] LABS: PROTHROMBIN TIME 13.1 SEC (11.4-15.4)
[2017-01-15 19:11] LABS: PARTIAL THROMBOPLASTIN TIME 28.3 SEC (23.5-35.8)
--- NOTE | 2017-01-15 19:13 | PDOC H&P ---
History of Present Illness Admission Date/PCP: 01/15/17 13:57 QUINCY ALEJO MD History of Present Illness: YG METZ is a 71 year old female with history of diabetes nephropathy, hypertension, she came to the emergency room this morning because of persistent and protracted vomiting, she was well yesterday and for the last week, she was in her usual state of health until this morning when she started vomiting, when she arrived in the emergency room she had episode of severe loose diarrhea which is very foul-smelling that was suspicious for Clostridium difficile infection. In the emergency room she was evaluated she was found to have severely elevated blood pressure in the 200 range systolic with associated acute kidney injury probably prerenal in nature. Because of the constellation of symptoms and signs including severe diarrhea, severe vomiting, acute kidney injury, and hypertensive emergency patient was offered hospital admission for inpatient care Past Medical History Cardiac Medical History: Reports: Coronary Artery Disease, Hyperlipidema, Hypertension Endocrine Medical History: Reports: Diabetes Mellitus Type 2 - Diagnosed about 12 years ago Renal/ Medical History: Reports: Other - Diabetic nephropathy with nephrotic range proteinuria Musculoskeltal Medical History: Reports: Arthritis Past Surgical History Past Surgical History: Reports: Cardiac Catheterization - stents x 2, Hysterectomy, Tubal Ligation, Other - Colon resection Social History Smoking Status: Never Smoker Frequency of Alcohol Use: None Hx Recreational Drug Use: No Drugs: None Hx Prescription Drug Abuse: No - Advance Directive Resuscitation Status: Full Code Family History Family History: Reviewed & Not Pertinent Parental Family History Reviewed: Yes Children Family History Reviewed: Yes Sibling(s) Family History Reviewed.: Yes Medication/Allergy Home Medications: Amlodipine Besylate [Norvasc 10 mg Tablet] 10 mg PO DAILY 01/15/17 Aspirin [Aspirin 81 mg Chewable Tablet] 81 mg PO DAILY 01/15/17 Clonidine HCl [Catapres 0.2 mg Tablet] 1.5 tab PO Q8 01/15/17 Ergocalciferol (Vitamin D2) [Drisdol 50,000 unit (1.25MG) Capsule] 50,000 unit PO MO@1000 01/15/17 Furosemide [Lasix] 40 mg PO DAILY 01/15/17 Insulin Glargine,Hum.rec.anlog [Lantus Insulin 100 Unit/mL] 10 unit SUBCUT Q12 01/15/17 Metoclopramide HCl [Reglan 10 mg Tablet] 10 mg PO Q6 01/15/17 Metoprolol Succinate [Toprol XL 200 mg Tablet] 200 mg PO DAILY 01/15/17 Ondansetron HCl [Zofran 8 mg Tablet] 8 mg PO BID 01/15/17 Promethazine HCl [Phenergan 25 mg Tablet] 25 mg PO Q6 01/15/17 Valsartan/Hydrochlorothiazide [Valsartan-Hctz 320-25 mg Tab] 1 tab PO DAILY Allergies/Adverse Reactions: codeine [Codeine] Allergy (Mild, Verified 01/15/17 05:53) meperidine HCl [From Demerol] Allergy (Mild, Verified 01/15/17 05:53) Review of Systems Constitutional: PRESENT: anorexia Eyes: ABSENT: visual disturbances Ears: ABSENT: hearing changes Cardiovascular: ABSENT: chest pain, dyspnea on exertion, edema, orthropnea, palpitations Respiratory: ABSENT: cough, hemoptysis Gastrointestinal: PRESENT: diarrhea, nausea, vomiting Genitourinary: ABSENT: dysuria, hematuria Musculoskeletal: ABSENT: joint swelling Integumentary: ABSENT: rash, wounds Neurological: ABSENT: abnormal gait, abnormal speech, confusion, dizziness, focal weakness, syncope Psychiatric: ABSENT: anxiety, depression, homidical ideation, suicidal ideation Endocrine: ABSENT: cold intolerance, heat intolerance, menstrual abnormalities, polydipsia, polyuria Hematologic/Lymphatic: ABSENT: easy bleeding, easy bruising, lymphadenopathy Physical Exam Vital Signs: Temp Pulse Resp BP Pulse Ox 99.4 F 117 H 18 193/90 H 96 01/15/17 14:05 01/15/17 14:05 01/15/17 14:05 01/15/17 14:05 01/15/17 14:05 Intake & Output 01/14/17 01/15/17 01/16/17 06:59 06:59 06:59 Intake Total 300 Output Total 300 Balance 0 Weight 87 kg General appearance: PRESENT: well-developed Head exam: PRESENT: atraumatic, normocephalic Eye exam: PRESENT: conjunctiva pink, EOMI, PERRLA Ear exam: PRESENT: normal external ear exam Mouth exam: PRESENT: dry mucosa Neck exam: PRESENT: full ROM Cardiovascular exam: PRESENT: RRR, +S1, +S2 Pulses: PRESENT: normal dorsalis pedis pul, +2 pedal pulses bilateral GI/Abdominal exam: PRESENT: normal bowel sounds, soft Rectal exam: PRESENT: deferred Neurological exam: PRESENT: alert, CN II-XII grossly intact Psychiatric exam: PRESENT: appropriate affect, normal mood Skin exam: PRESENT: dry, intact, warm Results Impressions: Chest X-Ray 01/15/17 05:45 IMPRESSION: NO ACUTE RADIOGRAPHIC FINDING IN THE CHEST. Assessment & Plan - Diagnosis (1) Enterocolitis due to Clostridium difficile Is this a current diagnosis for this admission?: YesPlan: The presentation is highly suspicious for C. difficile colitis, stool is sent for C. difficile toxin she will be empirically treated with IV Flagyl unless culture result prove otherwise (2) Acute kidney injury Is this a current diagnosis for this admission?: YesPlan: She will be treated with IV fluid, (3) Hypertensive emergency Is this a current diagnosis for this admission?: Yes (4) Type 2 diabetes mellitus Qualifiers: Diabetes mellitus complication status: with kidney complications Diabetes mellitus complication detail: with nephropathy Diabetes mellitus prison insulin use: without prison use Qualified Code(s): E11.21 - Type 2 diabetes mellitus with diabetic nephropathy Is this a current diagnosis for this admission?: Yes
[2017-01-15 19:26] LABS: MAGNESIUM 1.6 mg/dL (1.6-2.3)
[2017-01-15 19:40] LABS: CREATINE KINASE MB 8.04 ng/mL (<4.55)
[2017-01-15 19:47] LABS: TROPONIN I 0.729 ng/mL
[2017-01-15 19:58] LABS: THYROID STIMULATING HORMONE 1.2 uIU/mL (0.47-4.68)
[2017-01-15] MEDS ORDERED: GLUCAGON,HUMAN RECOMB 1 MG INJ IM PRN (20:09)
[2017-01-15] MEDS ORDERED: DEXTROSE 40% GEL 15 GM TUBE PO PRN (20:09)
[2017-01-15] MEDS ORDERED: DEXTROSE 50%-WATER SYRINGE 25 GM/50 ML DOSE IV PRN (20:09)
[2017-01-15] MEDS ORDERED: DEXTROSE 50%-WATER SYRINGE 12.5 GM/25 ML DOSE IV PRN (20:09)
[2017-01-15] MEDS ORDERED: DEXTROSE 40% GEL 15 GM TUBE X 2 PO PRN (20:09)
--- NOTE | 2017-01-15 21:40 | EKG REPORT ---
SEVERITY:- ABNORMAL ECG - SINUS TACHYCARDIA PROBABLE LEFT ATRIAL ABNORMALITY LVH WITH IVCD, LAD AND SECONDARY REPOL ABNRM : Confirmed by: Kezia Mensah 15-Jan-2017 21:40:00
[2017-01-15] MEDS: HEPARIN SOD (PORCINE) 5,000 UNIT/ML 1 ML SYRINGE SUBCUT SCH (21:52)
[2017-01-15 21:58] LABS: APPEARANCE,URINE SLIGHTLY-CLOUDY; BILIRUBIN,URINE NEGATIVE (NEGATIVE); GLUCOSE, URINE >=500 mg/dL (NEGATIVE); KETONES,URINE 20 mg/dL (NEGATIVE); LEUKOCYTE ESTERASE,URINE SMALL (NEGATIVE); NITRITE,URINE NEGATIVE (NEGATIVE); PROTEIN,URINE >=500 mg/dL (NEGATIVE); URINE SPECIFIC GRAVITY 1.013; UROBILINOGEN,URINE NEGATIVE mg/dL (<2.0)
[2017-01-15] MEDS ORDERED: METOPROLOL SUCCINATE 50 MG TAB.SR.24H PO ONE (23:00)
[2017-01-15] MEDS ORDERED: HYDROCHLOROTHIAZIDE 25 MG TABLET PO ONE (23:00)
[2017-01-15] MEDS ORDERED: VALSARTAN 160 MG TABLET PO ONE (23:00)
[2017-01-15] MEDS ORDERED: INSULIN GLARGINE,HUM.REC.ANLOG 1,000 UNIT/10 ML UNIT SUBCUT ONE (23:00)
[2017-01-15] MEDS ORDERED: CLONIDINE HCL 0.2 MG TABLET PO ONE (23:00)
[2017-01-15] MEDS ORDERED: AMLODIPINE BESYLATE 10 MG TABLET PO ONE (23:00)
[2017-01-16] MEDS: INSULIN LISPRO 100 UNIT/ML 3 ML VIAL SUBCUT PRN ×4 (00:06→23:10)
[2017-01-16 01:36] LABS: CREATINE KINASE MB 11.1 ng/mL (<4.55)
[2017-01-16 01:41] LABS: TROPONIN I 0.879 ng/mL
[2017-01-16] MEDS: ONDANSETRON HCL INJ/PF 4 MG/2 ML SDV IV PRN ×2 (02:35→06:52)
[2017-01-16] MEDS: HEPARIN SOD (PORCINE) 5,000 UNIT/ML 1 ML SYRINGE SUBCUT SCH ×3 (06:00→23:09)
[2017-01-16] MEDS: CLONIDINE HCL 0.2 MG TABLET PO SCH ×3 (06:00→23:10)
[2017-01-16] MEDS: INSULIN GLARGINE,HUM.REC.ANLOG 300 UNIT/3 ML INSULN.PEN SUBCUT SCH ×2 (09:44→23:09)
[2017-01-16] MEDS: METOPROLOL SUCCINATE 50 MG TAB.SR.24H PO SCH (09:47)
[2017-01-16] MEDS: AMLODIPINE BESYLATE 10 MG TABLET PO SCH (09:47)
[2017-01-16] MEDS: VALSARTAN 160 MG TABLET PO SCH (09:48)
[2017-01-16] MEDS: ASPIRIN 81 MG TABLET, CHEWABLE PO SCH (09:48)
[2017-01-16] MEDS: FUROSEMIDE 40 MG TABLET PO SCH (09:48)
[2017-01-16] MEDS: HYDROCHLOROTHIAZIDE 25 MG TABLET PO SCH (09:49)
[2017-01-16 10:31] LABS: ABSOLUTE BASOPHILS # (AUTO) 0.1 10^3/uL (0.0-0.2); ABSOLUTE MONOCYTES (AUTO) 1.3 10^3/uL (0.1-1.4); ABSOLUTE NEUT (AUTO) 12.7 10^3/uL (1.7-8.2); BASOPHILS % (AUTO) 0.5 % (0-2); HEMATOCRIT 34.6 % (36.0-47.0); HGB HCT DIFFERENCE 0.8; LYMPHOCYTES % (AUTO) 12.3 % (13-45); MEAN CORPUSCULAR HEMOGLOBIN 25.5 pg (27.0-33.4); MEAN CORPUSCULAR HGB CONC 34.2 g/dL (32.0-36.0); MEAN CORPUSCULAR VOLUME 75 fl (80-97); MONOCYTES % (AUTO) 8.1 % (3-13); RED BLOOD COUNT 4.65 10^6/uL (3.72-5.28); RED CELL DISTRIBUTION WIDTH 15.4 % (11.5-14.0); SEGMENTED NEUTROPHILS % (AUTO) 79.1 % (42-78); WHITE BLOOD COUNT 16.1 10^3/uL (4.0-10.5)
[2017-01-16 10:39] LABS: HEMOGLOBIN 11.8 g/dL (12.0-15.5)
[2017-01-16 10:43] LABS: ALBUMIN 3.2 g/dL (3.5-5.0); ANION GAP 16 (5-19); BLOOD UREA NITROGEN 25 mg/dL (7-20); CARBON DIOXIDE 27 mmol/L (22-30); CHLORIDE 96 mmol/L (98-107); CREATININE RESULT 1.63 mg/dL (0.52-1.25); GLUCOSE 267 mg/dL (75-110); POTASSIUM 3.2 mmol/L (3.6-5.0); SODIUM 138.5 mmol/L (137-145); TOTAL PROTEIN 5.8 g/dL (6.3-8.2)
[2017-01-16 10:44] LABS: ALANINE AMINOTRANSFERASE 19 U/L (9-52); ALKALINE PHOSPHATASE 78 U/L (38-126); ASPARTATE AMINO TRANSFERASE 40 U/L (14-36); BILIRUBIN,DIRECT 0.1 mg/dL (0.0-0.4); BILIRUBIN,TOTAL 0.7 mg/dL (0.2-1.3)
[2017-01-16 10:56] LABS: CREATINE KINASE MB 7.73 ng/mL (<4.55); TROPONIN I 1.03 ng/mL
[2017-01-16 14:14] LABS: TROPONIN I 0.961 ng/mL
[2017-01-16] MEDS ORDERED: FENTANYL 50 MCG/HR PATCH.TD72 TD ONE (16:30)
--- NOTE | 2017-01-16 17:10 | XCELERA REPORT ---
[address] [address] Transthoracic Echocardiogram Report Name: YG METZ Age: 71 yrs Gender: Female : 1945 Patient Status: Inpatient Patient Location: [id number]\S\335\S\A Study Date: 01/16/2017 03:41 PM Height: 62 in Weight: 188 lb BSA: 1.9 m2 Procedure: A complete two-dimensional transthoracic echocardiogram was performed (2D, M-mode, spectral and color flow Doppler). The study was technically adequate with some images being suboptimal in quality. Reason For Study: positive troponin Ordering Physician: QUINCY ALEJO Performed By: Kirti Chavez Interpretation Summary The left ventricular ejection fraction is normal. There is mild concentric left ventricular hypertrophy. Doppler measurements suggest pseudonormalized left ventricular relaxation, which is associated with grade II/IV or mild to moderate diastolic dysfunction The left ventricle is grossly normal size. Wall motion cannot be accurately commented on, but no definite regional wall motion abnormalities noted. The right ventricle is grossly normal size. The right ventricular systolic function is normal. Borderline left atrial enlargement. The right atrium is normal in size There is a mild amount of mitral regurgitation There is no mitral valve stenosis. There is no aortic valve stenosis No aortic regurgitation is present. There is a mild amount of tricuspid regurgitation There is mild pulmonary hypertension by echo Right ventricular systolic pressure is estimated to be elevated at 40- 50mmHg. The aortic root is not well visualized. The inferior vena cava was not well visualized Minimal pericardial effusion. MMode/2D Measurements \T\ Calculations RVDd: 2.6 cm LVIDd: 3.5 cm FS: 33.8 % Ao root diam: 2.7 cm IVSd: 1.5 cm LVIDs: 2.3 cm EDV(Teich): 52.5 ml LVPWd: 1.2 cm ESV(Teich): 19.0 ml Ao root area: 5.9 cm2 EF(Teich): 63.7 % LA dimension: 3.5 cm Doppler Measurements \T\ Calculations MV E max renzo: MV P1/2t max renzo: Ao V2 max: LV V1 max P.4 cm/sec 87.9 cm/sec 137.7 cm/sec 3.4 mmHg MV A max renzo: MV P1/2t: 78.8 msec Ao max PG: LV V1 max: 140.2 cm/sec 7.6 mmHg 91.8 cm/sec MV E/A: 0.63 MVA(P1/2t): 2.8 cm2 MV dec slope: 326.5 cm/sec2 PA V2 max: TR max renzo: 75.5 cm/sec 304.1 cm/sec PA max P.3 mmHgTR max P.0 mmHg Left Ventricle The left ventricle is grossly normal size. There is mild concentric left ventricular hypertrophy. The left ventricular ejection fraction is normal. Doppler measurements suggest pseudonormalized left ventricular relaxation, which is associated with grade II/IV or mild to moderate diastolic dysfunction. Wall motion cannot be accurately commented on, but no definite regional wall motion abnormalities noted. Right Ventricle The right ventricle is grossly normal size. There is normal right ventricular wall thickness. The right ventricular systolic function is normal. Atria The right atrium is normal in size. Borderline left atrial enlargement. Interarterial septum not well visualized and not well dopplered. Cannot comment on ASD/PFO presence. Mitral Valve The mitral valve leaflets are sclerotic, but show no functional abnormalities. There is no mitral valve stenosis. There is a mild amount of mitral regurgitation. Aortic Valve The aortic valve is grossly normal. There is no aortic valve stenosis. No aortic regurgitation is present. Tricuspid Valve The tricuspid valve is not well visualized, but is grossly normal. There is no tricuspid stenosis. There is a mild amount of tricuspid regurgitation. There is mild pulmonary hypertension by echo. Right ventricular systolic pressure is estimated to be elevated at 40-50mmHg. Pulmonic Valve The pulmonic valve is not well visualized. Great Vessels The aortic root is not well visualized. The inferior vena cava was not well visualized. Effusions Minimal pericardial effusion. : QUINCY ALEJO > Kezia Mensah
[2017-01-16 19:51] LABS: CREATINE KINASE MB 4.33 ng/mL (<4.55)
[2017-01-16 19:52] LABS: TROPONIN I 0.74 ng/mL
--- NOTE | 2017-01-16 20:15 | PDOC PROGRESS REPORT ---
Subjective Progress Note for:: 01/16/17 Subjective:: Yesterday she was admitted when she presented with profuse diarrhea that was suspicious for Clostridium difficile colitis. The cardiac enzymes, troponin was elevated it peaked at 1.03 and there was symmetrical T-wave inversion in precordial leads. She had a history of CAD with stents of the coronary vessels , she did not have any chest symptoms when she presented yesterday with GI symptoms of diarrhea and vomiting but I requested for cardiac enzymes because she had a history of CAD and she had torrential vomiting that made me consider cardiac event as a potential etiology in her symptoms. A Cardiolite stress test will be ordered in the morning and consulted with the on-call mold tooling technician Dr. Mensah and he suggest that patient should have a stress test Physical Exam Vital Signs: Temp Pulse Resp BP Pulse Ox 98.5 F 64 16 119/53 L 98 01/16/17 15:33 01/16/17 15:33 01/16/17 15:33 01/16/17 15:33 01/16/17 15:33 Intake & Output 01/15/17 01/16/17 01/17/17 06:59 06:59 06:59 Intake Total 1100 1820 Output Total 650 400 Balance 450 1420 Weight 85.5 kg General appearance: PRESENT: no acute distress, well-developed, well-nourished Head exam: PRESENT: atraumatic, normocephalic Eye exam: PRESENT: conjunctiva pink, EOMI, PERRLA Ear exam: PRESENT: normal external ear exam Mouth exam: PRESENT: moist, tongue midline Neck exam: PRESENT: full ROM Cardiovascular exam: PRESENT: RRR, +S1, +S2 Pulses: PRESENT: normal dorsalis pedis pul, +2 pedal pulses bilateral Vascular exam: PRESENT: normal capillary refill GI/Abdominal exam: PRESENT: normal bowel sounds, soft Rectal exam: PRESENT: deferred Neurological exam: PRESENT: alert, awake, oriented to person, oriented to place , oriented to time, oriented to situation, CN II-XII grossly intact. ABSENT: motor sensory deficit Psychiatric exam: PRESENT: appropriate affect, normal mood Skin exam: PRESENT: dry, intact, warm Results Laboratory Results: 01/16/17 09:45 01/15/17 01/16/17 01/16/17 21:05 09:45 09:45 WBC 16.1 H RBC 4.65 Hgb 11.8 L D Hct 34.6 L MCV 75 L MCH 25.5 L MCHC 34.2 RDW 15.4 H Plt Count 286 Seg Neutrophils % 79.1 H Lymphocytes % 12.3 L Monocytes % 8.1 Eosinophils % 0.0 Basophils % 0.5 Absolute Neutrophils 12.7 H Absolute Lymphocytes 2.0 Absolute Monocytes 1.3 Absolute Eosinophils 0.0 Absolute Basophils 0.1 Sodium Cancelled Potassium Cancelled Chloride Cancelled Carbon Dioxide Cancelled Anion Gap Cancelled BUN Cancelled Creatinine Cancelled Est GFR ( Amer) Cancelled Est GFR (Non-Af Amer) Cancelled Glucose Cancelled Calcium Cancelled Phosphorus 3.6 Total Bilirubin Cancelled AST Cancelled ALT Cancelled Alkaline Phosphatase Cancelled Total Protein Cancelled Albumin Cancelled Urine Color STRAW Urine Appearance SLIGHTLY-CLOUDY Urine pH 6.0 Ur Specific [place] 1.013 Urine Protein >=500 H Urine Glucose (UA) >=500 H Urine Ketones 20 H Urine Blood SMALL H Urine Nitrite NEGATIVE Ur Leukocyte Esterase SMALL H Urine WBC (Auto) 68 Urine RBC (Auto) 4 01/16/17 09:45 WBC RBC Hgb Hct MCV MCH MCHC RDW Plt Count Seg Neutrophils % Lymphocytes % Monocytes % Eosinophils % Basophils % Absolute Neutrophils Absolute Lymphocytes Absolute Monocytes Absolute Eosinophils Absolute Basophils Sodium 138.5 Potassium 3.2 L Chloride 96 L Carbon Dioxide 27 Anion Gap 16 BUN 25 H Creatinine 1.63 H Est GFR ( Amer) 38 L Est GFR (Non-Af Amer) 31 L Glucose 267 H Calcium 9.0 Phosphorus Total Bilirubin 0.7 AST 40 H ALT 19 Alkaline Phosphatase 78 Total Protein 5.8 L Albumin 3.2 L Urine Color Urine Appearance Urine pH Ur Specific [place] Urine Protein Urine Glucose (UA) Urine Ketones Urine Blood Urine Nitrite Ur Leukocyte Esterase Urine WBC (Auto) Urine RBC (Auto) 01/15/17 01/15/17 01/16/17 18:52 18:52 00:56 Creatine Kinase 137 H 166 H CK-MB (CK-2) 8.04 H Troponin I 0.729 01/16/17 01/16/17 01/16/17 00:56 09:45 09:45 Creatine Kinase 124 CK-MB (CK-2) 11.10 H 7.73 H Troponin I 0.879 1.030 01/16/17 01/16/17 01/16/17 13:23 19:10 19:10 Creatine Kinase 102 CK-MB (CK-2) 6.00 H 4.33 Troponin I 0.961 0.740 Impressions: Chest X-Ray 01/15/17 05:45 IMPRESSION: NO ACUTE RADIOGRAPHIC FINDING IN THE CHEST. KUB X-Ray 01/15/17 19:41 IMPRESSION: NO RADIOGRAPHIC EVIDENCE FOR ACUTE ABDOMINAL DISEASE. Assessment & Plan - Diagnosis (1) Enterocolitis due to Clostridium difficile Is this a current diagnosis for this admission?: Yes (2) Acute kidney injury Is this a current diagnosis for this admission?: Yes (3) Hypertensive emergency Is this a current diagnosis for this admission?: Yes (4) Type 2 diabetes mellitus Qualifiers: Diabetes mellitus complication status: with kidney complications Diabetes mellitus complication detail: with nephropathy Diabetes mellitus skilled nursing insulin use: without ferry terminal agent use Qualified Code(s): E11.21 - Type 2 diabetes mellitus with diabetic nephropathy; Z79.4 - ferry terminal agent (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Plan: She has elevated troponin, differential diagnosis would include non-ST MS, severe diarrhea, tachycardia, a Cardiolite stress will be ordered
[2017-01-16 20:20] LABS: ALANINE AMINOTRANSFERASE 26 U/L (9-52); ALKALINE PHOSPHATASE 75 U/L (38-126); ANION GAP 14 (5-19); ASPARTATE AMINO TRANSFERASE 31 U/L (14-36); BILIRUBIN,DIRECT 0.4 mg/dL (0.0-0.4); BILIRUBIN,TOTAL 0.7 mg/dL (0.2-1.3); BLOOD UREA NITROGEN 34 mg/dL (7-20); CALCIUM 8.9 mg/dL (8.4-10.2); CARBON DIOXIDE 24 mmol/L (22-30); CHLORIDE 100 mmol/L (98-107); CREATININE RESULT 2.46 mg/dL (0.52-1.25); GLUCOSE 175 mg/dL (75-110); POTASSIUM 3.1 mmol/L (3.6-5.0); SODIUM 138.3 mmol/L (137-145); TOTAL PROTEIN 5.8 g/dL (6.3-8.2)
--- NOTE | 2017-01-16 22:22 | EKG REPORT ---
SEVERITY:- ABNORMAL ECG - SINUS RHYTHM LEFT AXIS DEVIATION LVH WITH SECONDARY REPOLARIZATION ABNORMALITY VS ISCHEMIA PROLONGED QT INTERVAL : Confirmed by: Kezia Mensah 16-Jan-2017 22:21:12
--- NOTE | 2017-01-16 23:02 | PDOC CONSULTATION ---
Consultation Consult Date: 01/16/17 Attending physician:: QUINCY ALEJO Consult reason:: Abn Troponin elevation, CAD History of Present Illness Admission Date/PCP: 01/15/17 13:57 QUINCY ALEJO MD Patient complains of: nausea and vomiting History of Present Illness: YG METZ is a 71 year old female with history of diabetes nephropathy, hypertension, she admitted through emergency room this morning because of persistent and protracted vomiting, she was well yesterday and for the last week , she was in her usual state of health until this morning when she started vomiting, when she arrived in the emergency room she had episode of severe loose diarrhea which is very foul-smelling that was suspicious for Clostridium difficile infection. In the emergency room she was evaluated she was found to have severely elevated blood pressure in the 200 range systolic with associated acute kidney injury probably prerenal in nature. Because of the constellation of symptoms and signs including severe diarrhea, severe vomiting, acute kidney injury, and hypertensive emergency patient was admitted. Subsequently patient was noted to have abnormal troponin elevation and abnormal EKG with symmetrical T wave inversion. On questioning patient admiited having chest discomfort around time of admission but not since then. This history was reviewed, confirmed and supplemented. Patient's at bedside. Past Medical History Cardiac Medical History: Reports: Coronary Artery Disease, Hyperlipidema, Hypertension Neurological Medical History: Denies: Seizures Endocrine Medical History: Reports: Diabetes Mellitus Type 2 - Diagnosed about 12 years ago Renal/ Medical History: Reports: Other - Diabetic nephropathy with nephrotic range proteinuria Malignancy Medical History: Reports: Colorectal Cancer - Status post colon resection. Musculoskeltal Medical History: Reports: Arthritis Psychiatric Medical History: Denies: Depression Past Surgical History Past Surgical History: Reports: Cardiac Catheterization - stents x 2, Hysterectomy, Tubal Ligation, Other - Colon resection Social History Information Source: Patient Smoking Status: Never Smoker Frequency of Alcohol Use: None Hx Recreational Drug Use: No Drugs: None Hx Prescription Drug Abuse: No - Advance Directive Resuscitation Status: Full Code Surrogate healthcare decision maker:: patient's Family History Family History: CAD Parental Family History Reviewed: Yes Children Family History Reviewed: Yes Sibling(s) Family History Reviewed.: Yes Medication/Allergy Home Medications: Amlodipine Besylate [Norvasc 10 mg Tablet] 10 mg PO DAILY 01/15/17 Aspirin [Aspirin 81 mg Chewable Tablet] 81 mg PO DAILY 01/15/17 Clonidine HCl [Catapres 0.2 mg Tablet] 1.5 tab PO Q8 01/15/17 Ergocalciferol (Vitamin D2) [Drisdol 50,000 unit (1.25MG) Capsule] 50,000 unit PO MO@1000 01/15/17 Furosemide [Lasix] 40 mg PO DAILY 01/15/17 Insulin Glargine,Hum.rec.anlog [Lantus Insulin 100 Unit/mL] 10 unit SUBCUT Q12 01/15/17 Metoclopramide HCl [Reglan 10 mg Tablet] 10 mg PO Q6 01/15/17 Metoprolol Succinate [Toprol XL 200 mg Tablet] 200 mg PO DAILY 01/15/17 Ondansetron HCl [Zofran 8 mg Tablet] 8 mg PO BID 01/15/17 Promethazine HCl [Phenergan 25 mg Tablet] 25 mg PO Q6 01/15/17 Valsartan/Hydrochlorothiazide [Valsartan-Hctz 320-25 mg Tab] 1 tab PO DAILY Allergies/Adverse Reactions: codeine [Codeine] Allergy (Mild, Verified 01/15/17 05:53) meperidine HCl [From Demerol] Allergy (Mild, Verified 01/15/17 05:53) Review of Systems Constitutional: ABSENT: fever(s), headache(s), weight gain, weight loss Eyes: ABSENT: visual disturbances Ears: ABSENT: hearing changes Nose, Mouth, and Throat: ABSENT: headache(s), mouth pain, sore throat, vertigo, other Cardiovascular: PRESENT: chest pain, dyspnea on exertion. ABSENT: edema, orthropnea, palpitations Respiratory: ABSENT: cough, hemoptysis Gastrointestinal: PRESENT: abdominal pain, diarrhea, nausea, vomiting Genitourinary: ABSENT: dysuria, hematuria Musculoskeletal: ABSENT: joint swelling Integumentary: ABSENT: rash, wounds Neurological: ABSENT: abnormal gait, abnormal speech, confusion, dizziness, focal weakness, syncope Psychiatric: ABSENT: anxiety, depression, homidical ideation, suicidal ideation Endocrine: ABSENT: cold intolerance, heat intolerance, polydipsia, polyuria Hematologic/Lymphatic: ABSENT: easy bleeding, easy bruising Physical Exam Vital Signs: Temp Pulse Resp BP Pulse Ox 98.5 F 64 16 119/53 L 98 01/16/17 15:33 01/16/17 15:33 01/16/17 15:33 01/16/17 15:33 01/16/17 15:33 Intake & Output 01/15/17 01/16/17 01/17/17 06:59 06:59 06:59 Intake Total 1100 1820 Output Total 650 400 Balance 450 1420 Weight 85.5 kg General appearance: PRESENT: no acute distress, well-developed, well-nourished Head exam: PRESENT: atraumatic, normocephalic Eye exam: PRESENT: conjunctiva pink, EOMI, PERRLA. ABSENT: scleral icterus Ear exam: PRESENT: normal external ear exam Mouth exam: PRESENT: moist, tongue midline Throat exam: ABSENT: post pharyngeal erythema, tonsillar erythema, tonsillar exudate, tonsillogmegaly, other Neck exam: ABSENT: carotid bruit, JVD, lymphadenopathy, thyromegaly Respiratory exam: PRESENT: clear to auscultation jeanette. ABSENT: rales, rhonchi, wheezes Cardiovascular exam: PRESENT: RRR. ABSENT: diastolic murmur, rubs, systolic murmur Pulses: PRESENT: +1 pedal pulses bilateral Vascular exam: PRESENT: normal capillary refill GI/Abdominal exam: PRESENT: normal bowel sounds, soft. ABSENT: distended, guarding, mass, organolmegaly, rebound, tenderness Rectal exam: PRESENT: deferred Extremities exam: PRESENT: full ROM. ABSENT: calf tenderness, clubbing, pedal edema Musculoskeletal exam: ABSENT: ambulatory, deformity, dislocation, full ROM, normal inspection, tenderness, other Neurological exam: PRESENT: alert, awake, oriented to person, oriented to place , oriented to time, oriented to situation, CN II-XII grossly intact. ABSENT: motor sensory deficit Psychiatric exam: PRESENT: appropriate affect, normal mood. ABSENT: homicidal ideation, suicidal ideation Focused psych exam: ABSENT: catatonic, delusional, euphoric, flight of ideas, internal stimuli, paranoid, pressured speech, psychomotor agitation, restlessness, other Skin exam: PRESENT: dry, intact, warm. ABSENT: cyanosis, rash Results Laboratory Results: 01/16/17 09:45 01/16/17 19:10 01/16/17 01/16/17 01/16/17 09:45 09:45 09:45 WBC 16.1 H RBC 4.65 Hgb 11.8 L D Hct 34.6 L MCV 75 L MCH 25.5 L MCHC 34.2 RDW 15.4 H Plt Count 286 Seg Neutrophils % 79.1 H Lymphocytes % 12.3 L Monocytes % 8.1 Eosinophils % 0.0 Basophils % 0.5 Absolute Neutrophils 12.7 H Absolute Lymphocytes 2.0 Absolute Monocytes 1.3 Absolute Eosinophils 0.0 Absolute Basophils 0.1 Sodium Cancelled 138.5 Potassium Cancelled 3.2 L Chloride Cancelled 96 L Carbon Dioxide Cancelled 27 Anion Gap Cancelled 16 BUN Cancelled 25 H Creatinine Cancelled 1.63 H Est GFR ( Amer) Cancelled 38 L Est GFR (Non-Af Amer) Cancelled 31 L Glucose Cancelled 267 H Calcium Cancelled 9.0 Phosphorus 3.6 Total Bilirubin Cancelled 0.7 AST Cancelled 40 H ALT Cancelled 19 Alkaline Phosphatase Cancelled 78 Total Protein Cancelled 5.8 L Albumin Cancelled 3.2 L 01/16/17 19:10 WBC RBC Hgb Hct MCV MCH MCHC RDW Plt Count Seg Neutrophils % Lymphocytes % Monocytes % Eosinophils % Basophils % Absolute Neutrophils Absolute Lymphocytes Absolute Monocytes Absolute Eosinophils Absolute Basophils Sodium 138.3 Potassium 3.1 L Chloride 100 Carbon Dioxide 24 Anion Gap 14 BUN 34 H Creatinine 2.46 H Est GFR ( Amer) 23 L Est GFR (Non-Af Amer) 19 L Glucose 175 H Calcium 8.9 Phosphorus Total Bilirubin 0.7 AST 31 ALT 26 Alkaline Phosphatase 75 Total Protein 5.8 L Albumin 3.0 L 01/15/17 01/15/17 01/16/17 18:52 18:52 00:56 Creatine Kinase 137 H 166 H CK-MB (CK-2) 8.04 H Troponin I 0.729 01/16/17 01/16/17 01/16/17 00:56 09:45 09:45 Creatine Kinase 124 CK-MB (CK-2) 11.10 H 7.73 H Troponin I 0.879 1.030 01/16/17 01/16/17 01/16/17 13:23 19:10 19:10 Creatine Kinase 102 CK-MB (CK-2) 6.00 H 4.33 Troponin I 0.961 0.740 EKG Comments: SR, LVH, Q wave v1 and v2 suggestive of prior ASMI. Symmetrical T wave inversion lateral chest leads indicative of ischemia. Impressions: Chest X-Ray 01/15/17 05:45 IMPRESSION: NO ACUTE RADIOGRAPHIC FINDING IN THE CHEST. KUB X-Ray 01/15/17 19:41 IMPRESSION: NO RADIOGRAPHIC EVIDENCE FOR ACUTE ABDOMINAL DISEASE. Assessment & Plan - Diagnosis (1) Acute kidney injury Is this a current diagnosis for this admission?: Yes (2) Elevated troponin Is this a current diagnosis for this admission?: Yes (3) Hypertensive emergency Is this a current diagnosis for this admission?: Yes (4) Type 2 diabetes mellitus Qualifiers: Diabetes mellitus complication status: with kidney complications Diabetes mellitus complication detail: with nephropathy Diabetes mellitus predatory animal exterminator insulin use: without predatory animal exterminator use Qualified Code(s): E11.21 - Type 2 diabetes mellitus with diabetic nephropathy; Z79.4 - group home (current) use of insulin Is this a current diagnosis for this admission?: Yes (5) Uncontrolled hypertension Is this a current diagnosis for this admission?: Yes (6) Sleep apnea syndrome Qualifiers: Sleep apnea type: unspecified type Qualified Code(s): G47.30 - Sleep apnea, unspecified Is this a current diagnosis for this admission?: Yes - Notes Notes: Elevated Troponin I : could be related to acute coronary syndrome, severe hypertension, severe nausea and vomiting. Several therapeutic options discussed including pursuing cardiac catheterization. Patient however has significant renal dysfunction therefore it is best to pursue a nuclear stress test. This will be scheduled. Severe hypertension: Patient presented with accelerated hypertension. Currently seems under better control. Blood pressure goal is 135/85 or below. Type II diabetes: This is being managed by primary care attending adequately. Sleep apnea syndrome: Continue nightly CPAP therapy. Coronary artery disease: Medical management will be optimized. Recommend high potency statins, beta eliazar therapy. LAKSHMI inhibitor/ARB may be relatively contraindicated at this point but should be considered later. Agree with subspecialty involvement especially nephrology. Plan : NST in am. [facility] As usual I thank Dr. Slater very much for the kind referral. - Time Time Spent: 30 to 50 Minutes
[2017-01-16] MEDS ORDERED: ATORVASTATIN CALCIUM 40 MG TABLET PO ONE (23:15)
[2017-01-16] MEDS ORDERED: ATORVASTATIN CALCIUM 40 MG TABLET PO SCH (23:15)
[2017-01-17 06:46] LABS: ABSOLUTE BASOPHILS # (AUTO) 0.1 10^3/uL (0.0-0.2); ABSOLUTE EOSINOPHILS # (AUTO) 0.1 10^3/uL (0.0-0.6); ABSOLUTE LYMPHOCYTES (AUTO) 2.8 10^3/uL (0.5-4.7); ABSOLUTE NEUT (AUTO) 7.5 10^3/uL (1.7-8.2); BASOPHILS % (AUTO) 0.8 % (0-2); EOSINOPHILS % (AUTO) 0.9 % (0-6); HEMATOCRIT 33.8 % (36.0-47.0); HEMOGLOBIN 11.3 g/dL (12.0-15.5); HGB HCT DIFFERENCE 0.1; LYMPHOCYTES % (AUTO) 24.2 % (13-45); MEAN CORPUSCULAR HEMOGLOBIN 25.1 pg (27.0-33.4); MEAN CORPUSCULAR HGB CONC 33.4 g/dL (32.0-36.0); MEAN CORPUSCULAR VOLUME 75 fl (80-97); MONOCYTES % (AUTO) 8.9 % (3-13); RED CELL DISTRIBUTION WIDTH 15.5 % (11.5-14.0); SEGMENTED NEUTROPHILS % (AUTO) 65.2 % (42-78); WHITE BLOOD COUNT 11.5 10^3/uL (4.0-10.5)
[2017-01-17 07:16] LABS: ALANINE AMINOTRANSFERASE 23 U/L (9-52); ALBUMIN 2.9 g/dL (3.5-5.0); ALKALINE PHOSPHATASE 93 U/L (38-126); ANION GAP 14 (5-19); ASPARTATE AMINO TRANSFERASE 25 U/L (14-36); BILIRUBIN,DIRECT 0.2 mg/dL (0.0-0.4); BILIRUBIN,TOTAL 0.3 mg/dL (0.2-1.3); BLOOD UREA NITROGEN 36 mg/dL (7-20); CALCIUM 8.5 mg/dL (8.4-10.2); CARBON DIOXIDE 24 mmol/L (22-30); CHLORIDE 98 mmol/L (98-107); CREATININE RESULT 2.79 mg/dL (0.52-1.25); GLUCOSE 216 mg/dL (75-110); PHOSPHORUS 4.4 mg/dL (2.5-4.5); SODIUM 135.5 mmol/L (137-145); TOTAL PROTEIN 5.4 g/dL (6.3-8.2)
[2017-01-17] MEDS: HEPARIN SOD (PORCINE) 5,000 UNIT/ML 1 ML SYRINGE SUBCUT SCH ×3 (07:48→21:58)
[2017-01-17] MEDS: CLONIDINE HCL 0.2 MG TABLET PO SCH ×3 (07:48→21:58)
[2017-01-17] MEDS: INSULIN LISPRO 100 UNIT/ML 3 ML VIAL SUBCUT PRN ×3 (08:48→21:58)
[2017-01-17] MEDS: VALSARTAN 160 MG TABLET PO SCH (09:14)
[2017-01-17] MEDS: ASPIRIN 81 MG TABLET, ENT COATED PO SCH (09:15)
[2017-01-17] MEDS: METOPROLOL SUCCINATE 50 MG TAB.SR.24H PO SCH ×2 (09:15→20:39)
[2017-01-17] MEDS: FUROSEMIDE 40 MG TABLET PO SCH (09:16)
[2017-01-17] MEDS: ASPIRIN 81 MG TABLET, CHEWABLE PO SCH (09:16)
[2017-01-17] MEDS: HYDROCHLOROTHIAZIDE 25 MG TABLET PO SCH (09:17)
[2017-01-17] MEDS: AMLODIPINE BESYLATE 10 MG TABLET PO SCH (09:17)
[2017-01-17] MEDS: POTASSIUM CHLORIDE 10 MEQ TABLET.SA PO SCH ×3 (09:18→18:15)
[2017-01-17] MEDS: INSULIN GLARGINE,HUM.REC.ANLOG 300 UNIT/3 ML INSULN.PEN SUBCUT SCH ×2 (09:28→21:58)
--- NOTE | 2017-01-17 17:31 | PDOC CONSULTATION ---
Consultation Consult Date: 01/17/17 Attending physician:: QUINCY ALEJO Consult reason:: I was asked by Dr. Alejo to see this patient because of worsening kidney function. History of Present Illness Admission Date/PCP: 01/15/17 13:57 QUINCY ALEJO MD History of Present Illness: YG METZ is a 71 year old female with history of chronic kidney disease due to diabetes nephropathy, hypertension, she admitted through emergency room on January 15 because of persistent and protracted vomiting, she was well the day prior and for the last week, she was in her usual state of health until this morning when she started vomiting, when she arrived in the emergency room she had episode of severe loose diarrhea which is very foul-smelling that was suspicious for Clostridium difficile infection. In the emergency room she was evaluated she was found to have severely elevated blood pressure in the 200 range systolic with associated acute kidney injury probably prerenal in nature. Because of the constellation of symptoms and signs including severe diarrhea, severe vomiting, acute kidney injury, and hypertensive emergency patient was admitted. Subsequently patient was noted to have abnormal troponin elevation and abnormal EKG with symmetrical T wave inversion. On questioning patient admiited having chest discomfort around time of admission but not since then. This history was reviewed, confirmed and supplemented. Patient's at bedside. Currently the patient said she is ready to go home. She denies anymore nausea or vomiting or diarrhea nor abdominal pain. She was scheduled for stress is today but rescheduled for tomorrow. She is eating good and drinking a lot of fluids in fact almost 3 L and 24 hours today. On admission the patient's BUN was 28 creatinine 1.62 with estimated GFR of 38 today she had a BUN of 36 creatinine 2.75 at EGFR of 20. Previously her baseline creatinine range anywhere from 1.5-2 with estimated GFR on 40s to 50s. On admission the patient's blood pressure was as high as 236/97. Her blood pressure medications were all resumed and she was given couple doses of IV hydralazine. Her blood pressure didn't started to go down to as low as 103 and now is running anywhere from 120s to 130s over 50s to 60s. Patient tells me that her blood pressure at home usually runs around 140s over 80s. Her echocardiogram showed normal ejection fraction with grade 2 over for mild to moderate diastolic dysfunction. This worsening of kidney function related to sudden drop in the blood pressure occurred last September of this year. The same thing happened her kidney function got worse with sudden drop of the blood pressure but it did improve with improvement of the blood pressure. Patient is known to have significant almost nephrotic range proteinuria. Past Medical History Cardiac Medical History: Reports: Coronary Artery Disease, Hyperlipidemia, Hypertension-primary - Diagnosis at least about 28 years ago. 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 Musculoskeltal Medical History: Reports: Arthritis Hematology Medical History: Reports Anemia of Chronic Kidney Disease Past Surgical History Past Surgical History: Reports: Cardiac Catheterization - stents x 2, Hysterectomy - With bilateral salpingo-oophorectomy, Tubal Ligation, Other - Colon resection Social History Information Source: Patient Smoking Status: Never Smoker Frequency of Alcohol Use: None Hx Recreational Drug Use: No Drugs: None Hx Prescription Drug Abuse: No - Advance Directive Resuscitation Status: Full Code Family History Family History: DM - Both parents, Other - Atrial fibrillation her mother Parental Family History Reviewed: Yes Children Family History Reviewed: Yes Sibling(s) Family History Reviewed.: Yes Medication/Allergy Home Medications: Amlodipine Besylate [Norvasc 10 mg Tablet] 10 mg PO DAILY 01/15/17 Aspirin [Aspirin 81 mg Chewable Tablet] 81 mg PO DAILY 01/15/17 Clonidine HCl [Catapres 0.2 mg Tablet] 1.5 tab PO Q8 01/15/17 Ergocalciferol (Vitamin D2) [Drisdol 50,000 unit (1.25MG) Capsule] 50,000 unit PO MO@1000 01/15/17 Furosemide [Lasix] 40 mg PO DAILY 01/15/17 Insulin Glargine,Hum.rec.anlog [Lantus Insulin 100 Unit/mL] 10 unit SUBCUT Q12 01/15/17 Metoclopramide HCl [Reglan 10 mg Tablet] 10 mg PO Q6 01/15/17 Metoprolol Succinate [Toprol XL 200 mg Tablet] 200 mg PO DAILY 01/15/17 Ondansetron HCl [Zofran 8 mg Tablet] 8 mg PO BID 01/15/17 Promethazine HCl [Phenergan 25 mg Tablet] 25 mg PO Q6 01/15/17 Valsartan/Hydrochlorothiazide [Valsartan-Hctz 320-25 mg Tab] 1 tab PO DAILY Allergies/Adverse Reactions: codeine [Codeine] Allergy (Mild, Verified 01/15/17 05:53) meperidine HCl [From Demerol] Allergy (Mild, Verified 01/15/17 05:53) Review of Systems All systems: reviewed and no additional remarkable complaints except as stated Review of Systems: Constitutional: ABSENT: chills, fatigue, fever(s), headache(s), weight gain, weight loss Eyes: ABSENT: visual disturbances Ears: ABSENT: hearing changes Cardiovascular: ABSENT: chest pain, dyspnea on exertion, edema, orthropnea, palpitations Respiratory: ABSENT: cough, dyspnea, hemoptysis Gastrointestinal: ABSENT: abdominal pain, constipation, diarrhea, hematemesis, hematochezia, nausea, vomiting Genitourinary: ABSENT: dysuria, hematuria Musculoskeletal: ABSENT: joint swelling Integumentary: ABSENT: rash, wounds Neurological: ABSENT: abnormal gait, abnormal speech, confusion, dizziness, focal weakness, numbness, syncope Psychiatric: ABSENT: anxiety, depression Endocrine: ABSENT: cold intolerance, heat intolerance, polydipsia, polyuria Hematologic/Lymphatic: ABSENT: easy bleeding, easy bruising, lymphadenopathy Physical Exam Vital Signs: Temp Pulse Resp BP Pulse Ox 97.3 F 58 L 18 128/54 H 100 01/17/17 12:33 01/17/17 12:33 01/17/17 12:33 01/17/17 12:33 01/17/17 12:33 Intake & Output 01/16/17 01/17/17 01/18/17 06:59 06:59 06:59 Intake Total 1100 2877 1258 Output Total 650 1300 200 Balance 450 1577 1058 Weight 85.5 kg 89.2 kg Exam: General appearance: no acute distress, cooperative, well-developed, well- nourished Head exam: PRESENT: atraumatic, normocephalic Eye exam: PRESENT: Conjunctiva [place], EOMI, PERRLA. ABSENT: conjunctival injection, scleral icterus Mouth exam: PRESENT: moist, neck supple, tongue midline Neck exam: PRESENT: full ROM. ABSENT: carotid bruit, JVD, lymphadenopathy, thyromegaly Respiratory exam: PRESENT: clear to auscultation bilaterally. ABSENT: rales, rhonchi, stridor, wheezes Cardiovascular exam: PRESENT: RRR, +S1, +S2. ABSENT: systolic murmur Pulses: PRESENT: normal radial pulses, normal dorsalis pedis pulses GI/Abdominal exam: PRESENT: normal bowel sounds, soft. ABSENT: guarding, mass, tenderness Rectal exam: deferred Extremities exam: PRESENT: full ROM. ABSENT: calf tenderness, pedal edema Musculoskeletal: PRESENT: full ROM. ABSENT: deformity Neurological exam: PRESENT: alert, Awake, Oriented to person, Oriented to place , Oriented to time, reflexes normal, CN II-XII grossly intact. ABSENT: motor sensory deficit Psychiatric exam: PRESENT: appropriate affect, normal mood. ABSENT: homicidal ideation, suicidal ideation Skin exam: PRESENT: intact, dry, warm. ABSENT: rash Results Laboratory Results: 01/17/17 06:03 01/17/17 06:03 01/16/17 01/17/17 01/17/17 19:10 06:03 06:03 WBC 11.5 H RBC 4.50 Hgb 11.3 L Hct 33.8 L MCV 75 L MCH 25.1 L MCHC 33.4 RDW 15.5 H Plt Count 251 Seg Neutrophils % 65.2 Lymphocytes % 24.2 Monocytes % 8.9 Eosinophils % 0.9 Basophils % 0.8 Absolute Neutrophils 7.5 Absolute Lymphocytes 2.8 Absolute Monocytes 1.0 Absolute Eosinophils 0.1 Absolute Basophils 0.1 Sodium 138.3 135.5 L Potassium 3.1 L 3.0 L* Chloride 100 98 Carbon Dioxide 24 24 Anion Gap 14 14 BUN 34 H 36 H Creatinine 2.46 H 2.79 H Est GFR ( Amer) 23 L 20 L Est GFR (Non-Af Amer) 19 L 17 L Glucose 175 H 216 H Calcium 8.9 8.5 Phosphorus 4.4 Total Bilirubin 0.7 0.3 AST 31 25 ALT 26 23 Alkaline Phosphatase 75 93 Total Protein 5.8 L 5.4 L Albumin 3.0 L 2.9 L 01/15/17 01/15/17 01/16/17 18:52 18:52 00:56 Creatine Kinase 137 H 166 H CK-MB (CK-2) 8.04 H Troponin I 0.729 01/16/17 01/16/17 01/16/17 00:56 09:45 09:45 Creatine Kinase 124 CK-MB (CK-2) 11.10 H 7.73 H Troponin I 0.879 1.030 01/16/17 01/16/17 01/16/17 13:23 19:10 19:10 Creatine Kinase 102 CK-MB (CK-2) 6.00 H 4.33 Troponin I 0.961 0.740 Impressions: Chest X-Ray 01/15/17 05:45 IMPRESSION: NO ACUTE RADIOGRAPHIC FINDING IN THE CHEST. KUB X-Ray 01/15/17 19:41 IMPRESSION: NO RADIOGRAPHIC EVIDENCE FOR ACUTE ABDOMINAL DISEASE. Assessment & Plan - Diagnosis (1) Acute kidney injury superimposed on chronic kidney disease Is this a current diagnosis for this admission?: YesPlan: Patient is nonoliguric. This is most likely secondary to acute tubular necrosis due to sudden decrease in blood pressure within 24-48 hours with relative volume depletion. I will hold her valsartan to allow her blood pressure to go up a little bit into the 140s to 150s systolic blood pressure. Continue to monitor kidney function and urine output. Patient does not need any renal replacement therapy. (2) Chronic kidney disease, stage III (moderate) Is this a current diagnosis for this admission?: YesPlan: Patient is a baseline almost nephrotic range proteinuria with hypoalbuminemia likely secondary to a combination of diabetic nephropathy and hypertensive nephrosclerosis. Once the kidney function is at baseline we can resume her valsartan. (3) Hypertension Qualifiers: Hypertension type: essential hypertension Qualified Code(s): I10 - Essential (primary) hypertension Is this a current diagnosis for this admission?: YesPlan: Currently improved but maybe a little bit too low for her. Hold valsartan as above. 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 (6) Elevated troponin Is this a current diagnosis for this admission?: YesPlan: Either due to acute coronary syndrome versus target organ damage due to severe hypertension. Technical Account Representative on board. Stress test scheduled for tomorrow. (7) Enterocolitis due to Clostridium difficile Is this a current diagnosis for this admission?: YesPlan: Resolved. - Notes Notes: Thank you very much for allowing me to participate in the care of this patient. Discussed the case with Dr. Alejo. Discussed assessment and plan with patient and at bedside. - Time Time Spent: Greater than 70 Minutes
--- NOTE | 2017-01-17 17:37 | PDOC PROGRESS REPORT ---
Subjective Progress Note for:: 01/17/17 Subjective:: She was seen by nephrology because of acute kidney injury, she is scheduled for stress test tomorrow, she feels better though Physical Exam Vital Signs: Temp Pulse Resp BP Pulse Ox 97.3 F 58 L 18 128/54 H 100 01/17/17 12:33 01/17/17 12:33 01/17/17 12:33 01/17/17 12:33 01/17/17 12:33 Intake & Output 01/16/17 01/17/17 01/18/17 06:59 06:59 06:59 Intake Total 1100 2877 1258 Output Total 650 1300 200 Balance 450 1577 1058 Weight 85.5 kg 89.2 kg General appearance: PRESENT: no acute distress, well-developed, well-nourished Head exam: PRESENT: atraumatic, normocephalic Eye exam: PRESENT: conjunctiva pink, EOMI, PERRLA Ear exam: PRESENT: normal external ear exam Mouth exam: PRESENT: moist, tongue midline Neck exam: PRESENT: full ROM. ABSENT: carotid bruit, JVD, lymphadenopathy, thyromegaly Cardiovascular exam: PRESENT: RRR, +S1, +S2 Vascular exam: PRESENT: normal capillary refill GI/Abdominal exam: PRESENT: normal bowel sounds, soft Rectal exam: PRESENT: deferred Neurological exam: PRESENT: alert, awake, oriented to person, oriented to place , oriented to time, oriented to situation, CN II-XII grossly intact Psychiatric exam: PRESENT: appropriate affect, normal mood Skin exam: PRESENT: dry, intact, warm. ABSENT: cyanosis, rash Results Laboratory Results: 01/17/17 06:03 01/17/17 06:03 01/16/17 01/17/17 01/17/17 19:10 06:03 06:03 WBC 11.5 H RBC 4.50 Hgb 11.3 L Hct 33.8 L MCV 75 L MCH 25.1 L MCHC 33.4 RDW 15.5 H Plt Count 251 Seg Neutrophils % 65.2 Lymphocytes % 24.2 Monocytes % 8.9 Eosinophils % 0.9 Basophils % 0.8 Absolute Neutrophils 7.5 Absolute Lymphocytes 2.8 Absolute Monocytes 1.0 Absolute Eosinophils 0.1 Absolute Basophils 0.1 Sodium 138.3 135.5 L Potassium 3.1 L 3.0 L* Chloride 100 98 Carbon Dioxide 24 24 Anion Gap 14 14 BUN 34 H 36 H Creatinine 2.46 H 2.79 H Est GFR ( Amer) 23 L 20 L Est GFR (Non-Af Amer) 19 L 17 L Glucose 175 H 216 H Calcium 8.9 8.5 Phosphorus 4.4 Total Bilirubin 0.7 0.3 AST 31 25 ALT 26 23 Alkaline Phosphatase 75 93 Total Protein 5.8 L 5.4 L Albumin 3.0 L 2.9 L 01/15/17 01/15/17 01/16/17 18:52 18:52 00:56 Creatine Kinase 137 H 166 H CK-MB (CK-2) 8.04 H Troponin I 0.729 01/16/17 01/16/17 01/16/17 00:56 09:45 09:45 Creatine Kinase 124 CK-MB (CK-2) 11.10 H 7.73 H Troponin I 0.879 1.030 01/16/17 01/16/17 01/16/17 13:23 19:10 19:10 Creatine Kinase 102 CK-MB (CK-2) 6.00 H 4.33 Troponin I 0.961 0.740 Impressions: Chest X-Ray 01/15/17 05:45 IMPRESSION: NO ACUTE RADIOGRAPHIC FINDING IN THE CHEST. KUB X-Ray 01/15/17 19:41 IMPRESSION: NO RADIOGRAPHIC EVIDENCE FOR ACUTE ABDOMINAL DISEASE. 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
[2017-01-17 18:13] LABS: ANION GAP 11 (5-19); BLOOD UREA NITROGEN 44 mg/dL (7-20); CALCIUM 8.1 mg/dL (8.4-10.2); CARBON DIOXIDE 25 mmol/L (22-30); CHLORIDE 96 mmol/L (98-107); CREATININE RESULT 2.64 mg/dL (0.52-1.25); GLUCOSE 287 mg/dL (75-110); POTASSIUM 3.5 mmol/L (3.6-5.0); SODIUM 131.8 mmol/L (137-145)
[2017-01-18] MEDS: CLONIDINE HCL 0.2 MG TABLET PO SCH ×2 (06:49→14:54)
[2017-01-18] MEDS: HEPARIN SOD (PORCINE) 5,000 UNIT/ML 1 ML SYRINGE SUBCUT SCH ×2 (06:49→14:55)
[2017-01-18 06:59] LABS: ABSOLUTE BASOPHILS # (AUTO) 0.1 10^3/uL (0.0-0.2); ABSOLUTE EOSINOPHILS # (AUTO) 0.1 10^3/uL (0.0-0.6); ABSOLUTE LYMPHOCYTES (AUTO) 2.1 10^3/uL (0.5-4.7); ABSOLUTE MONOCYTES (AUTO) 1.2 10^3/uL (0.1-1.4); ABSOLUTE NEUT (AUTO) 7.9 10^3/uL (1.7-8.2); BASOPHILS % (AUTO) 0.5 % (0-2); EOSINOPHILS % (AUTO) 1.2 % (0-6); HEMATOCRIT 32.5 % (36.0-47.0); HEMOGLOBIN 10.9 g/dL (12.0-15.5); HGB HCT DIFFERENCE 0.2; LYMPHOCYTES % (AUTO) 18.1 % (13-45); MEAN CORPUSCULAR HEMOGLOBIN 24.9 pg (27.0-33.4); MEAN CORPUSCULAR HGB CONC 33.4 g/dL (32.0-36.0); MEAN CORPUSCULAR VOLUME 75 fl (80-97); RED BLOOD COUNT 4.36 10^6/uL (3.72-5.28); RED CELL DISTRIBUTION WIDTH 15.3 % (11.5-14.0); SEGMENTED NEUTROPHILS % (AUTO) 69.2 % (42-78); WHITE BLOOD COUNT 11.4 10^3/uL (4.0-10.5)
[2017-01-18 07:13] LABS: ALANINE AMINOTRANSFERASE 23 U/L (9-52); ALBUMIN 2.8 g/dL (3.5-5.0); ALKALINE PHOSPHATASE 92 U/L (38-126); ANION GAP 8 (5-19); ASPARTATE AMINO TRANSFERASE 16 U/L (14-36); BILIRUBIN,DIRECT 0.1 mg/dL (0.0-0.4); BILIRUBIN,TOTAL 0.4 mg/dL (0.2-1.3); BLOOD UREA NITROGEN 44 mg/dL (7-20); CALCIUM 8.6 mg/dL (8.4-10.2); CARBON DIOXIDE 26 mmol/L (22-30); CHLORIDE 102 mmol/L (98-107); CREATININE RESULT 2.17 mg/dL (0.52-1.25); GLUCOSE 168 mg/dL (75-110); PHOSPHORUS 4.1 mg/dL (2.5-4.5); POTASSIUM 4.1 mmol/L (3.6-5.0); SODIUM 135.6 mmol/L (137-145); TOTAL PROTEIN 5.4 g/dL (6.3-8.2)
--- NOTE | 2017-01-18 08:14 | PROGRESS NOTE E ---
Progress Note NAME: YG METZ : 1945 AGE: 71Y DATE: 01/17/2017 ROOM: [facility] The patient was seen from 1:10 p.m. to 2:40 p.m. SUBJECTIVE: The patient could not have a stress test since she took her metoprolol. She denies any chest pain or discomfort. There is no PND or orthopnea. There is no leg edema. There are no arrhythmias on the monitor. OBJECTIVE: GENERAL: On examination the patient is moderately obese in no acute distress. VITAL SIGNS: She is afebrile with a temperature of 97.3 degrees Fahrenheit. Pulse is 58 beats per minute. Blood pressure 128/ . Respirations 18 per minute. O2 saturation 100% on room air. HEAD: Atraumatic/normocephalic. EYES: Pupils are equal, round, regular, reactive to light and accommodation. Extraocular movements are normal. There is no conjunctival pallor. There is no scleral icterus. EARS: Tympanic membranes are intact. External auditory canals are clear. NOSE: There is no deviated nasal septum. There is no inflammation of the nasal mucous membranes. MOUTH: Mucous membranes are moist. Tongue is moist. There are no ulcers. There is no bleeding from the gums. THROAT: There is no redness of the oropharynx. There is no exudate. SKIN: There are no skin rashes. There is no petechia or ecchymosis. There are no skin lesions. NECK: Supple. There is no JVD. Carotids are equal. There is no bruit. There is no goiter. There is no lymphadenopathy. LUNGS: Clear to auscultation and percussion. HEART: S1, S2 is heard. There is no S3 gallop. There is no S4 gallop. There is a systolic murmur in the left sternal border and the apex. ABDOMEN: Soft, obese, nontender. There is no hepatosplenomegaly. Bowel sounds are well heard. There is no tender areas or masses. EXTREMITIES: Femorals are diminished. Pulses are diminished. There is no femoral bruit. Leg pulses are diminished. There is no pedal edema. There is no cellulitis. There is no cyanosis or clubbing. CENTRAL NERVOUS SYSTEM: The patient is conscious, awake, alert, oriented x3 without no focal deficits. PSYCHIATRIC: The patient's judgement and insight are intact. Her affect is normal. DIAGNOSTIC DATA: The patient's white count is 11,500, hemoglobin is 11.3, hematocrit is 33.8, platelet count is 251,000. The patient's sodium is 131.8, potassium is 3.5, chloride 96, CO2 is 25. The patient's BUN is 44, creatinine is 2.64. GFR is reduced to 22 mL which is stage 4 chronic kidney disease. Her calcium is 8.1. IMPRESSION: 1. ACUTE RENAL FAILURE. The patient is being seen by skates operator. 2. ELEVATED TROPONIN. It is trending down. The patient is per stress test tomorrow. 3. HYPERTENSIVE EMERGENCY. blood pressure well controlled. 4. DIABETES MELLITUS TYPE 2 WITH RENAL COMPLICATIONS, KIDNEY COMPLICATIONS WITH DIABETIC NEPHROPATHY. The patient uses long-term insulin. Continue insulin. 5. SLEEP APNEA SYNDROME. The patient wears CPAP at night. Would agree with beta eliazar but continue statins and beta blockers. LAKSHMI inhibitors and ARB are contraindicated at this point but should be considered later. Agree with , especially Nephrology. The patient will have a stress test tomorrow. Note that the patient is a FULL CODE. The patient's is the surrogate healthcare decision maker. Note of 30 minutes spent on this patient with more than 50% of the time spent on direct patient care, reviewing the patient's medications, and discussion with the skates operator and other caregiver's on the case. DICTATING PHYSICIAN: DELANO HEIN M.D. [id number] [address]#: [id number] ID: [id number] JOB#: [id number] ACCT: [id number] cc: >
[2017-01-18] MEDS: INSULIN LISPRO 100 UNIT/ML 3 ML VIAL SUBCUT PRN ×3 (08:16→17:38)
[2017-01-18] MEDS: INSULIN GLARGINE,HUM.REC.ANLOG 300 UNIT/3 ML INSULN.PEN SUBCUT SCH (11:07)
[2017-01-18] MEDS: ASPIRIN 81 MG TABLET, CHEWABLE PO SCH (11:09)
[2017-01-18] MEDS: HYDROCHLOROTHIAZIDE 25 MG TABLET PO SCH (11:09)
[2017-01-18] MEDS: FUROSEMIDE 40 MG TABLET PO SCH (11:09)
[2017-01-18] MEDS: ASPIRIN 81 MG TABLET, ENT COATED PO SCH (11:12)
[2017-01-18] MEDS: AMLODIPINE BESYLATE 10 MG TABLET PO SCH (11:12)
[2017-01-18] MEDS ORDERED: REGADENOSON INJ 0.4 MG/5 ML DISP.SYRIN IV ONE (12:15)
[2017-01-18 17:14] VITALS: BP 161/74
--- NOTE | 2017-01-18 19:43 | PDOC PROGRESS REPORT ---
Subjective Progress Note for:: 01/18/17 Subjective:: Patient looks good. She said she feels great and ready to go home. She had a stress test today. She denies any complaints. Physical Exam Vital Signs: Temp Pulse Resp BP Pulse Ox 98.2 F 62 14 161/74 H 100 01/18/17 16:39 01/18/17 16:39 01/18/17 16:39 01/18/17 16:39 01/18/17 16:39 Intake & Output 01/17/17 01/18/17 01/19/17 06:59 06:59 06:59 Intake Total 2877 3316 1072 Output Total 1300 1000 800 Balance 1577 2316 272 Weight 89.2 kg 91.2 kg Exam: General appearance: PRESENT: no acute distress, cooperative, well-developed, well-nourished Head exam: PRESENT: atraumatic, normocephalic Eye exam: PRESENT: conjunctiva pink, PERRLA. ABSENT: scleral icterus Neck exam: ABSENT: JVD Respiratory exam: PRESENT: Normal breath sounds. ABSENT: crackles, rales, rhonchi, unlabored, wheezes Cardiovascular exam: PRESENT: Regular rate rhythm -+S1, +S2. ABSENT: diastolic murmur, systolic murmur GI/Abdominal exam: PRESENT: normal bowel sounds, soft. ABSENT: guarding, mass, tenderness Extremities exam: Trace bilateral lower extremity pitting edema Neurological exam: PRESENT: alert, awake, oriented to person, place and time. Skin exam: PRESENT: dry, warm, Results Laboratory Results: 01/18/17 06:46 01/18/17 06:46 01/17/17 01/17/17 01/18/17 21:00 21:00 06:46 WBC 11.4 H RBC 4.36 Hgb 10.9 L Hct 32.5 L MCV 75 L MCH 24.9 L MCHC 33.4 RDW 15.3 H Plt Count 225 Seg Neutrophils % 69.2 Lymphocytes % 18.1 Monocytes % 11.0 Eosinophils % 1.2 Basophils % 0.5 Absolute Neutrophils 7.9 Absolute Lymphocytes 2.1 Absolute Monocytes 1.2 Absolute Eosinophils 0.1 Absolute Basophils 0.1 Sodium Potassium Chloride Carbon Dioxide Anion Gap BUN Creatinine Est GFR ( Amer) Est GFR (Non-Af Amer) Glucose Calcium Phosphorus Total Bilirubin AST ALT Alkaline Phosphatase Total Protein Albumin Stool Occult Blood POSITIVE Stool for White Cells NO WBCs SEEN 01/18/17 06:46 WBC RBC Hgb Hct MCV MCH MCHC RDW Plt Count Seg Neutrophils % Lymphocytes % Monocytes % Eosinophils % Basophils % Absolute Neutrophils Absolute Lymphocytes Absolute Monocytes Absolute Eosinophils Absolute Basophils Sodium 135.6 L Potassium 4.1 Chloride 102 Carbon Dioxide 26 Anion Gap 8 BUN 44 H Creatinine 2.17 H Est GFR ( Amer) 27 L Est GFR (Non-Af Amer) 22 L Glucose 168 H Calcium 8.6 Phosphorus 4.1 Total Bilirubin 0.4 AST 16 ALT 23 Alkaline Phosphatase 92 Total Protein 5.4 L Albumin 2.8 L Stool Occult Blood Stool for White Cells 01/15/17 01/15/17 01/16/17 18:52 18:52 00:56 Creatine Kinase 137 H 166 H CK-MB (CK-2) 8.04 H Troponin I 0.729 01/16/17 01/16/17 01/16/17 00:56 09:45 09:45 Creatine Kinase 124 CK-MB (CK-2) 11.10 H 7.73 H Troponin I 0.879 1.030 01/16/17 01/16/17 01/16/17 13:23 19:10 19:10 Creatine Kinase 102 CK-MB (CK-2) 6.00 H 4.33 Troponin I 0.961 0.740 Impressions: Chest X-Ray 01/15/17 05:45 IMPRESSION: NO ACUTE RADIOGRAPHIC FINDING IN THE CHEST. KUB X-Ray 01/15/17 19:41 IMPRESSION: NO RADIOGRAPHIC EVIDENCE FOR ACUTE ABDOMINAL DISEASE. Assessment & Plan - Diagnosis (1) Acute kidney injury superimposed on chronic kidney disease Is this a current diagnosis for this admission?: YesPlan: Patient is nonoliguric. This is most likely secondary to acute tubular necrosis due to sudden decrease in blood pressure within 24-48 hours with relative volume depletion. I will hold her valsartan to allow her blood pressure to go up a little bit into the 140s to 150s systolic blood pressure. Continue to monitor kidney function and urine output. Patient does not need any renal replacement therapy. Patient's kidney function is improved today. She is clinically doing good. May resume valsartan in 2 days. (2) Chronic kidney disease, stage III (moderate) Is this a current diagnosis for this admission?: YesPlan: Patient is a baseline almost nephrotic range proteinuria with hypoalbuminemia likely secondary to a combination of diabetic nephropathy and hypertensive nephrosclerosis. Once the kidney function is at baseline we can resume her valsartan. (3) Hypertension Qualifiers: Hypertension type: essential hypertension Qualified Code(s): I10 - Essential (primary) hypertension Is this a current diagnosis for this admission?: YesPlan: Slightly increased today due to holding valsartan but still acceptable for her. (4) Type 2 diabetes mellitus Qualifiers: Diabetes mellitus complication status: with kidney complications Diabetes mellitus complication detail: with nephropathy Diabetes mellitus chcf insulin use: without terminologist use Qualified Code(s): E11.21 - Type 2 diabetes mellitus with diabetic nephropathy; Z79.4 - computer terminal 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 Is this a current diagnosis for this admission?: Yes (5) Anemia in chronic kidney disease (CKD) Is this a current diagnosis for this admission?: YesPlan: Mild. (6) Elevated troponin Is this a current diagnosis for this admission?: YesPlan: Stress test done today with Dr. De Jesus. (7) Enterocolitis due to Clostridium difficile Is this a current diagnosis for this admission?: YesPlan: Resolved. - Notes Notes: From nephrology standpoint if thing the patient can go home in the next couple of days. Patient to follow-up with me in 3 weeks after discharge. She is to repeat her basic metabolic panel at least for her follow-up visit with me. - Time Time with patient: 15-25 minutes
--- NOTE | 2017-01-18 20:04 | PDOC DISCHARGE SUMMARY ---
General - Admit/Disc Date/PCP Admission Date/Primary Care Provider: 01/15/17 13:57 QUINCY ALEJO MD Discharge Date: 01/18/17 - Discharge Diagnosis (1) Enterocolitis due to Clostridium difficile Is this a current diagnosis for this admission?: Yes (2) Acute kidney injury Is this a current diagnosis for this admission?: Yes (3) Hypertensive emergency Is this a current diagnosis for this admission?: Yes (4) Type 2 diabetes mellitus Is this a current diagnosis for this admission?: Yes (5) Elevated troponin Is this a current diagnosis for this admission?: Yes - Additional Information Resuscitation Status: Full Code Home Medications: Amlodipine Besylate [Norvasc 10 mg Tablet] 10 mg PO DAILY 01/15/17 Aspirin [Aspirin 81 mg Chewable Tablet] 81 mg PO DAILY 01/15/17 Clonidine HCl [Catapres 0.2 mg Tablet] 1.5 tab PO Q8 01/15/17 Ergocalciferol (Vitamin D2) [Drisdol 50,000 unit (1.25MG) Capsule] 50,000 unit PO MO@1000 01/15/17 Furosemide [Lasix] 40 mg PO DAILY 01/15/17 Insulin Glargine,Hum.rec.anlog [Lantus Insulin 100 Unit/mL] 10 unit SUBCUT Q12 01/15/17 Metoprolol Succinate [Toprol XL 200 mg Tablet] 200 mg PO DAILY 01/15/17 Ondansetron HCl [Zofran 8 mg Tablet] 8 mg PO BID 01/15/17 Valsartan/Hydrochlorothiazide [Valsartan-Hctz 320-25 mg Tab] 1 tab PO DAILY History of Present Illness History of Present Illness: YG METZ is a 71 year old female with history of diabetes nephropathy, hypertension, she came to the emergency room this morning because of persistent and protracted vomiting, she was well yesterday and for the last week, she was in her usual state of health until this morning when she started vomiting, when she arrived in the emergency room she had episode of severe loose diarrhea which is very foul-smelling that was suspicious for Clostridium difficile infection. In the emergency room she was evaluated she was found to have severely elevated blood pressure in the 200 range systolic with associated acute kidney injury probably prerenal in nature. Because of the constellation of symptoms and signs including severe diarrhea, severe vomiting, acute kidney injury, and hypertensive emergency patient was offered hospital admission for inpatient care Hospital Course Hospital Course: He was admitted when she presented with vomiting and diarrhea on the initial impression was probable Clostridium difficile colitis. She was empirically treated with Flagyl for suspected C. difficile infection. On admission she had hypertensive emergency, the blood pressure recorded was over 220 systolic. And she sustained acute kidney injury. On admission she had troponin enzyme drawn, initially it was 0.6 peaked at 1 because of the increase in troponin enzyme, 2D echo was done and also a cardiolite -lexiscan stress test was done, the Cardiolite Lexiscan stress test it was negative for any acute ischemia, she was seen by nephrology and also cardiology Dr. De Jesus saw her in the hospital Physical Exam Vital Signs: Temp Pulse Resp BP Pulse Ox 98.2 F 62 14 161/74 H 100 01/18/17 16:39 01/18/17 16:39 01/18/17 16:39 01/18/17 16:39 01/18/17 16:39 Intake & Output 01/17/17 01/18/17 01/19/17 06:59 06:59 06:59 Intake Total 2877 3316 1172 Output Total 1300 1000 800 Balance 1577 2316 372 Weight 89.2 kg 91.2 kg General appearance: PRESENT: no acute distress, well-developed, well-nourished Head exam: PRESENT: atraumatic, normocephalic Eye exam: PRESENT: conjunctiva pink, EOMI, PERRLA Ear exam: PRESENT: normal external ear exam Mouth exam: PRESENT: moist, tongue midline Neck exam: PRESENT: full ROM Respiratory exam: PRESENT: clear to auscultation jeanette Cardiovascular exam: PRESENT: RRR, +S1, +S2 Vascular exam: PRESENT: normal capillary refill GI/Abdominal exam: PRESENT: normal bowel sounds, soft Rectal exam: PRESENT: deferred Neurological exam: PRESENT: alert, awake, oriented to person, oriented to place , oriented to time, oriented to situation, CN II-XII grossly intact. ABSENT: motor sensory deficit Psychiatric exam: PRESENT: appropriate affect, normal mood Skin exam: PRESENT: dry, intact, warm Results Laboratory Results: 01/18/17 06:46 01/18/17 06:46 01/17/17 01/17/1717 21:00 21:00 06:46 WBC 11.4 H RBC 4.36 Hgb 10.9 L Hct 32.5 L MCV 75 L MCH 24.9 L MCHC 33.4 RDW 15.3 H Plt Count 225 Seg Neutrophils % 69.2 Lymphocytes % 18.1 Monocytes % 11.0 Eosinophils % 1.2 Basophils % 0.5 Absolute Neutrophils 7.9 Absolute Lymphocytes 2.1 Absolute Monocytes 1.2 Absolute Eosinophils 0.1 Absolute Basophils 0.1 Sodium Potassium Chloride Carbon Dioxide Anion Gap BUN Creatinine Est GFR ( Amer) Est GFR (Non-Af Amer) Glucose Calcium Phosphorus Total Bilirubin AST ALT Alkaline Phosphatase Total Protein Albumin Stool Occult Blood POSITIVE Stool for White Cells NO WBCs SEEN 01/18/17 06:46 WBC RBC Hgb Hct MCV MCH MCHC RDW Plt Count Seg Neutrophils % Lymphocytes % Monocytes % Eosinophils % Basophils % Absolute Neutrophils Absolute Lymphocytes Absolute Monocytes Absolute Eosinophils Absolute Basophils Sodium 135.6 L Potassium 4.1 Chloride 102 Carbon Dioxide 26 Anion Gap 8 BUN 44 H Creatinine 2.17 H Est GFR ( Amer) 27 L Est GFR (Non-Af Amer) 22 L Glucose 168 H Calcium 8.6 Phosphorus 4.1 Total Bilirubin 0.4 AST 16 ALT 23 Alkaline Phosphatase 92 Total Protein 5.4 L Albumin 2.8 L Stool Occult Blood Stool for White Cells 01/15/17 01/15/17 01/16/17 18:52 18:52 00:56 Creatine Kinase 137 H 166 H CK-MB (CK-2) 8.04 H Troponin I 0.729 01/16/17 01/16/17 01/16/17 00:56 09:45 09:45 Creatine Kinase 124 CK-MB (CK-2) 11.10 H 7.73 H Troponin I 0.879 1.030 01/16/17 01/16/17 01/16/17 13:23 19:10 19:10 Creatine Kinase 102 CK-MB (CK-2) 6.00 H 4.33 Troponin I 0.961 0.740 Impressions: Chest X-Ray 01/15/17 05:45 IMPRESSION: NO ACUTE RADIOGRAPHIC FINDING IN THE CHEST. KUB X-Ray 01/15/17 19:41 IMPRESSION: NO RADIOGRAPHIC EVIDENCE FOR ACUTE ABDOMINAL DISEASE.
--- NOTE | 2017-01-18 22:48 | PROGRESS NOTE E ---
Progress Note NAME: YG METZ : 1945 AGE: 71Y DATE: 01/18/2017 ROOM: 335 SUBJECTIVE: I saw the patient at 8:50 a.m. in the stress lab and subsequently saw the patient after the stress test was done to discuss the stress test between 2:10 p.m. and 2:40 p.m. Thirty minutes spent on this patient. The patient denies any chest pain or discomfort. There is no PND or orthopnea. There is no leg edema. There is no palpitation. There are no TIA or CVA symptoms. OBJECTIVE: VITAL SIGNS: On examination earlier this morning her blood pressure was 104/70, respirations are 13 per minute, O2 saturation 100% on room air. She was afebrile with a temperature of 97.9 degrees Fahrenheit. Pulse was 64 beats per minute. HEENT: Head is atraumatic, normocephalic. Eyes: Pupils are equal, round and regular, reactive to light and accommodation. Extraocular movements are normal. There is no conjunctival pallor. There is no scleral icterus. Ears: Tympanic membranes are intact. External ear canals are clear. There is no deviation of the nasal septum. There is no inflammation of the nasal mucous membrane. Mouth: Mucous membranes are moist, tongue is moist. There are no ulcers. There is no bleeding from the gums. Throat: There is no redness of the oropharynx, there are no exudates. SKIN: There are no skin rashes. There are no petechiae or ecchymosis. There are no skin lesions. NECK: Supple. There is no JVD. There is no lymphadenopathy. There is no goiter. Carotids are equal. There is no bruit. LUNGS: Clear to auscultation and percussion. HEART: S1 and S2 is heard. There is no S3 gallop. There is no S4 gallop. There is a systolic murmur in the left sternal border and the apex. There is no rub. ABDOMEN: Soft, obese, nontender. There is no hepatosplenomegaly. Bowel sounds are well heard. EXTREMITIES: Femorals are diminished. There are no femoral bruits. Leg pulses are diminished. There is no pedal edema. There is no cyanosis or clubbing. There is no cellulitis. CENTRAL NERVOUS SYSTEM: The patient is conscious, awake, alert and oriented x3 with no focal deficits. PSYCHIATRIC: The patient's judgment and insight are intact. Her affect is normal. LABORATORY DATA: The patient's white count is 9400, hemoglobin 10.9, hematocrit 32.5, platelet count is 225,000. The patient's sodium is 135.6, potassium 4.1, chloride 102, CO2 is 26. The patient's BUN is 44, creatinine is 2.17, GFR improved to 27. The patient's blood sugar is 168 earlier this morning. The patient's phosphorus is 4.1, calcium is 8.6. Liver function tests are normal. ASSESSMENT AND PLAN: Note that the patient had resting Cardiolite imaging done yesterday and today she had a IV Lexiscan induced stress Cardiolite. Her stress was entirely normal. This was discussed with the patient. I also discussed the possibility of false/negatives and a sensitivity and discussed *------* of nuclear stress testing with the patient in detail. Continue current medications. The patient wants to followup with me in the office as she was my old patient. I discussed with Dr. Hatch the attending physician. Note 30 minutes spent on this patient. Note more than 50% of the time was spent on direct patient care. We will sign off the case and follow the patient in the office. DICTATING PHYSICIAN: DELANO HEIN M.D. [id number] [address]#: [id number] ID: [id number] JOB#: [id number] ACCT: [id number] cc: >
--- NOTE | 2017-01-19 09:54 | PROGRESS NOTE E ---
Progress Note NAME: YG METZ : 1945 AGE: 71Y DATE: 01/18/2017 ROOM: 335 ADDENDUM: The patient was seen between 2:10 p.m. and 2:30 p.m. She was also seen while doing a stress test. DIAGNOSES AND IMPRESSION: 1. ACUTE RENAL FAILURE. The patient is being seen by surveying crew rodman. The GFR is slightly improved, but still stage IV CKD. 2. ELEVATED TROPONINS. The patient's stress test is negative. Most likely the troponin elevation is secondary to acute renal failure. 3. HYPERTENSIVE EMERGENCY ON ADMISSION, AT PRESENT BLOOD PRESSURE IS WELL CONTROLLED. 4. DIABETES MELLITUS TYPE 2. Reviewed the complications/kidney complications with diabetic nephropathy. The patient does use long-term insulin. Continue insulin. 5. SLEEP APNEA. The patient uses CPAP at night. Continue statins and beta-blockers. At present in view of the patient's renal function, LAKSHMI inhibitors relatively contraindicated. Would discuss with the surveying crew rodman to see if can start as an outpatient. The other option is to put the patient on hydralazine. DICTATING PHYSICIAN: DELANO HEIN M.D. [id number] PHY#: [id number] ID: [id number] JOB#: [id number] ACCT: [id number] cc: >
[2017-01-19] MEDS ORDERED: FENTANYL 50 MCG/HR PATCH.TD72 TD SCH (10:00)
--- NOTE | 2017-01-20 15:19 | DRAGON STRESS TEST REPORT ---
2 day Intravenous LexiScan Cardiolite stress test using single photon emmision computerized tomographic. Date of procedure The resting images were obtained on 01/17/2017.The stress images after Lexiscan injection was obtained on 01/18/2017. Note that the stress images(with IV Lexiscan injection was done on 01/18/2017, since the patient had taken a beta eliazar on 01/17/2017. Ordering Provider: Dr. Hatch. Supervisor [employer]: Dr. Jennifer De Jesus. Indication: Abnormal troponin in a patient with coronary artery disease.. The patient is at 2 stents in the coronary arteries in the past. 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 Resting EKG: Sinus Rhythm. Old Anterior NE versus lead. Placement. Lateral wall ischemia. Stress EKG: No changes of ischemia. The patient no chest pain or discomfort, and there was no arrhythmias seen. Reason for termination: Protocol. Conclusions: Normal EKG and hemodynamic response to IV LexiScan. Nuclear data: At rest the patient on 01/17/2017 was given 12.63 millicuries of technetium 99 sestamibi injected intravenously. As per protocol rest non gated SPECT images were obtained. Subsequently on 01/18/2017 the patient was given intravenous LexiScan at a dose of 0.4 mg in 5 mL intravenously, followed by flush with normal saline. Subsequently the stress dose of 30.7 millicuries of technetium 99 sestamibi was injected intravenously. As per protocol stress gated images were obtained. Nuclear interpretation: Review of images showed that there is liver contamination artifact of the inferior wall. But in spite of this all segments of the myocardium had normal perfusion at rest, and normal perfusion post stress with IV LexiScan. All segments of the myocardium had normal motion, contraction, and thickening by gated study. T. I D. ratio was normal at 1.00. Computer read rest, and stress left ventricular ejection fraction were 62 %, and 64 % respectively. Impression: 1. There is no scintigraphic evidence of LexiScan induced myocardial ischemia. 2. There is no scintigraphic evidence of myocardial infarction/scar. Recommendations: Aggressive risk factor modification, and treating the underlying co- morbidities , and aggressive treatment of coronary artery disease. On 01/18/2017 the results of stress test were discussed with the patient and with Dr. Hatch. The patient will follow-up with Dr. Hatch and with me, since she is an outpatient of mine. SALAZAR
[2017-01-22] MEDS ORDERED: ERGOCALCIFEROL (VITAMIN D2) 50000 UNIT (1.25 MG) CAPSULE PO SCH (10:00)
== END 2017-01-18 20:50 | disposition home or self-care (01) | DRG 683 ==
LOC: ER 05:43 → EH 11:23 → UNDOADMIN 11:23 → 3S 13:52 → EH 13:52 → 3S 13:57
PROVIDERS: ADMIT Internal Medicine; ATTEND Internal Medicine
DX: N17.9 Acute kidney failure, unspecified (principal); A04.7 Enterocolitis due to Clostridium difficile; I16.1 Hypertensive emergency; I12.9 Hypertensive chronic kidney disease with stage 1 through stage 4 chronic kidney disease, or unspecified chronic kidney disease; N18.3 Chronic kidney disease, stage 3 (moderate); E11.22 Type 2 diabetes mellitus with diabetic chronic kidney disease; E11.21 Type 2 diabetes mellitus with diabetic nephropathy; E78.5 Hyperlipidemia, unspecified; E87.6 Hypokalemia; D63.1 Anemia in chronic kidney disease; I25.10 Atherosclerotic heart disease of native coronary artery without angina pectoris; R77.8 Other specified abnormalities of plasma proteins; R11.2 Nausea with vomiting, unspecified; G47.30 Sleep apnea, unspecified; Z95.5 Presence of coronary angioplasty implant and graft; Z90.49 Acquired absence of other specified parts of digestive tract; Z85.038 Personal history of other malignant neoplasm of large intestine; Z79.82 Long term (current) use of aspirin; Z79.4 Long term (current) use of insulin; Z79.899 Other long term (current) drug therapy
CPT/HCPCS: 36415; 71010; 74000; 78452; 80048; 80053; 80076; 81001; 82150; 82272; 82550; 82553; 82962; 83036; 83735; 84100; 84439; 84443; 84484; 85025; 85610; 85730; 87045; 87205; 87493; 89055; 93005; 93010; 93017; 93306; 96361; 96374; 96375; 96376; 99291; A9500; J0360; J1200; J1644; J1815; J2060; J2405; J2765; J2785; J3490; J7030; Q9969; S0119

== ENCOUNTER 2017-06-15 03:11 | Emergency (ER) | payer MEDICARE, OTHER ==
[2017-06-15] MEDS ORDERED: NORMAL SALINE 1000 ML 1,000 ML IV ONE (03:43)
--- NOTE | 2017-06-15 03:46 | ER Document Report ---
ED General - General TRAVEL OUTSIDE OF THE [place] IN LAST 30 DAYS: No <DAVID SALCEDO - Last Filed: 06/15/17 05:56> <PALMA FELIPE - Last Filed: 06/15/17 08:59> - General Chief Complaint: High Blood Sugar Stated Complaint: ELEVATED BLOOD SUGAR Time Seen by Provider: 06/15/17 03:22 Notes: Patient is a 71-year-old female comes emergency department with 2 complaints. First complaint is a bad headache on the left side of her head that she keeps getting every day for the past 2 weeks. She states that she has never had headaches like this before. She does report some pains in her neck (none currently). She reports some numbness/tingling on the left side of her face. She denies nausea, vomiting, focal numbness or weakness, visual changes. She is not on a blood thinner, takes a baby Aspirin. Patient also states that her blood sugars and blood pressures have been out of control this past week. No change in diet or medications. She is an insulin-dependent diabetic. She denies any fevers or chills. PMH hypertension and diabetes, has CAD with stents. (DAVID SALCEDO) - Related Data Allergies/Adverse Reactions: codeine [Codeine] Allergy (Mild, Verified 06/15/17 03:13) meperidine HCl [From Demerol] Allergy (Mild, Verified 06/15/17 03:13) morphine Allergy (Verified 06/15/17 07:14) Past Medical History - General Information source: Patient - Social History Smoking Status: Never Smoker Frequency of alcohol use: None Drug Abuse: None Lives with: Family Family History: Reviewed & Not Pertinent, CAD Patient has suicidal ideation: No Patient has homicidal ideation: No - Past Medical History Cardiac Medical History: Reports: Hx Coronary Artery Disease, Hx Hypercholesterolemia, Hx Hypertension Neurological Medical History: Denies: Hx Seizures Endocrine Medical History: Reports: Hx Diabetes Mellitus Type 2 - Diagnosed about 12 years ago Renal/ Medical History: Reports: Hx Ovarian Cysts. Denies: Hx Peritoneal Dialysis Malignancy Medical History: Reports: Hx Colorectal Cancer - Status post colon resection. Musculoskeltal Medical History: Reports Hx Arthritis Psychiatric Medical History: Denies: Hx Depression Past Surgical History: Reports: Hx Cardiac Catheterization - stents x 2, Hx Gynecologic Surgery, Hx Hysterectomy - With bilateral salpingo-oophorectomy, Hx Tubal Ligation, Other - Colon resection - Immunizations Immunizations up to date: Yes Hx Diphtheria, Pertussis, Tetanus Vaccination: Yes <DAVID SALCEDO - Last Filed: 06/15/17 05:56> Review of Systems - Review of Systems Constitutional: No symptoms reported EENT: No symptoms reported Cardiovascular: No symptoms reported Respiratory: No symptoms reported Gastrointestinal: No symptoms reported Genitourinary: No symptoms reported Female Genitourinary: No symptoms reported Musculoskeletal: No symptoms reported Skin: No symptoms reported Hematologic/Lymphatic: No symptoms reported Neurological/Psychological: See HPI <DENISSEDAVID - Last Filed: 06/15/17 05:56> Physical Exam - Vital signs Interpretation: Normal - General General appearance: Alert, Other - patient appears mildly uncomfortable initially - HEENT Head: Normocephalic, Atraumatic Eyes: Normal Conjunctiva: Normal Extraocular movements intact: Yes Eyelashes: Normal Pupils: PERRL - Respiratory Respiratory status: No respiratory distress Chest status: Nontender Breath sounds: Normal Chest palpation: Normal - Cardiovascular Rhythm: Regular Heart sounds: Normal auscultation Murmur: No - Abdominal Inspection: Normal Distension: No distension Bowel sounds: Normal Tenderness: Nontender Organomegaly: No organomegaly - Back Back: Normal, Nontender - Extremities General upper extremity: Normal inspection, Nontender, Normal color, Normal ROM , Normal temperature General lower extremity: Normal inspection, Nontender, Normal color, Normal ROM , Normal temperature, Normal weight bearing. No: Reid's sign - Neurological Neuro grossly intact: Yes Cognition: Normal Orientation: AAOx4 [place] Coma Scale Eye Opening: Spontaneous [place] Coma Scale Verbal: Oriented [place] Coma Scale Motor: Obeys Commands [place] Coma Scale Total: 15 Speech: Normal Motor strength normal: LUE, RUE, LLE, RLE Sensory: Normal - Psychological Associated symptoms: Normal affect, Normal mood - Skin Skin Temperature: Warm Skin Moisture: Dry Skin Color: Normal <DAVID SALCEDO - Last Filed: 06/15/17 05:56> - Vital signs Vitals: Temp Pulse Resp BP Pulse Ox 98.1 F 63 18 179/80 H 100 06/15/17 03:13 06/15/17 03:13 06/15/17 03:13 06/15/17 03:13 06/15/17 03:13 Course - Laboratory Result Diagrams: 06/15/17 03:45 06/15/17 03:45 <DAVID SALCEDO - Last Filed: 06/15/17 05:56> - Laboratory Result Diagrams: 06/15/17 03:45 06/15/17 03:45 - Diagnostic Test Radiology reviewed: Reports reviewed <PALMA FELIPE - Last Filed: 06/15/17 08:59> - Re-evaluation Re-evalutation: Upon questioning patient does recall that 2 weeks ago she had an adjustment performed by her chiropractor, she states that since the adjustment she has had the symptoms. Upon physical examination patient has a loud bruit of the left carotid, right carotid is unremarkable. Will perform CTA of the neck and head along with workup for elevated blood glucose. I confirmed this with Dr. Oneal. CBC is unremarkable, chemistry shows hyperglycemia at greater than 500 however anion gap and bicarbonate are normal, no ketones in the urine. Treating with insulin, patient already received IV fluids. Unfortunately patient's creatinine is greater than 2. Unable to perform contrasted CT. I called radiologist and asked for recommendations, Dr. Plata recommends MRA of the head and neck instead. Unable to perform this for several hours, patient states that she wants the imaging and she agrees to wait. She states that her headache is at a minimum at this time, she declines any medications for it. 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 She took amlodipine 10 mg, metoprolol tartrate 100 mg, clonidine 0.3 mg, Lasix 40 mg , valsartan/HCTZ 320/25 at bedside while I watched. (DAVID SALCEDO) 06/15/17 08:55 Patient reports that headache pain is improved after pain pill. Patient is requesting short course of pain medication due to her low back pain. Discussed results of patient's MRI test with patient. Patient advised that she will need to follow-up with her primary doctor to further evaluate her headaches, back pain as well as her elevated blood sugar. Patient does keep a log of her blood sugars. Patient encouraged to see her doctor on Sunday for recheck. (PALMA FELIPE) - Vital Signs Vital signs: Temp Pulse Resp BP Pulse Ox 98.1 F 63 11 L 165/75 H 100 06/15/17 03:13 06/15/17 03:13 06/15/17 07:50 06/15/17 07:50 06/15/17 07:50 - Laboratory Laboratory results interpreted by me: 06/15/17 06/15/17 06/15/17 03:24 03:45 03:45 MCV 74 L MCH 25.4 L RDW 14.6 H Sodium 131.4 L Potassium 3.5 L Chloride 91 L BUN 45 H Creatinine 2.16 H Est GFR ( Amer) 27 L Est GFR (Non-Af Amer) 22 L Glucose 570 H* POC Glucose > 550 H* Alkaline Phosphatase 271 H Albumin 3.4 L Urine Protein Urine Glucose (UA) 06/15/17 06/15/17 06/15/17 04:40 05:03 06:13 MCV MCH RDW Sodium Potassium Chloride BUN Creatinine Est GFR ( Amer) Est GFR (Non-Af Amer) Glucose POC Glucose 482 H* 422 H* Alkaline Phosphatase Albumin Urine Protein 100 H Urine Glucose (UA) >=500 H 06/15/17 07:00 MCV MCH RDW Sodium Potassium Chloride BUN Creatinine Est GFR ( Amer) Est GFR (Non-Af Amer) Glucose POC Glucose 358 H Alkaline Phosphatase Albumin Urine Protein Urine Glucose (UA) 06/15/17 08:56 Labs- Entire Visit 06/15/17 06/15/17 06/15/17 03:24 03:45 03:45 WBC 9.2 RBC 5.20 Hgb 13.2 Hct 38.4 MCV 74 L MCH 25.4 L MCHC 34.4 RDW 14.6 H Plt Count 277 Seg Neutrophils % 66.3 Lymphocytes % 22.4 Monocytes % 8.7 Eosinophils % 1.8 Basophils % 0.8 Absolute Neutrophils 6.1 Absolute Lymphocytes 2.1 Absolute Monocytes 0.8 Absolute Eosinophils 0.2 Absolute Basophils 0.1 Sodium 131.4 L Potassium 3.5 L Chloride 91 L Carbon Dioxide 28 Anion Gap 12 BUN 45 H Creatinine 2.16 H Est GFR ( Amer) 27 L Est GFR (Non-Af Amer) 22 L Glucose 570 H* POC Glucose > 550 H* Calcium 8.9 Total Bilirubin 0.4 Direct Bilirubin 0.4 Indirect Bilirubin Not Reportable Neonat Total Bilirubin Not Reportable AST 16 ALT 20 Alkaline Phosphatase 271 H Total Protein 6.5 Albumin 3.4 L Urine Color Urine Appearance Urine pH Ur Specific [place] Urine Protein Urine Glucose (UA) Urine Ketones Urine Blood Urine Nitrite Urine Bilirubin Urine Urobilinogen Ur Leukocyte Esterase Urine WBC (Auto) Urine RBC (Auto) U Hyaline Cast (Auto) Urine Bacteria (Auto) Squamous Epi Cells Auto Amorphous Sediment Auto Urine Ascorbic Acid 06/15/17 06/15/17 06/15/17 04:40 05:03 06:13 WBC RBC Hgb Hct MCV MCH MCHC RDW Plt Count Seg Neutrophils % Lymphocytes % Monocytes % Eosinophils % Basophils % Absolute Neutrophils Absolute Lymphocytes Absolute Monocytes Absolute Eosinophils Absolute Basophils Sodium Potassium Chloride Carbon Dioxide Anion Gap BUN Creatinine Est GFR ( Amer) Est GFR (Non-Af Amer) Glucose POC Glucose 482 H* 422 H* Calcium Total Bilirubin Direct Bilirubin Indirect Bilirubin Neonat Total Bilirubin AST ALT Alkaline Phosphatase Total Protein Albumin Urine Color STRAW Urine Appearance SLIGHTLY-CLOUDY Urine pH 6.0 Ur Specific [place] 1.008 Urine Protein 100 H Urine Glucose (UA) >=500 H Urine Ketones NEGATIVE Urine Blood NEGATIVE Urine Nitrite NEGATIVE Urine Bilirubin NEGATIVE Urine Urobilinogen NEGATIVE Ur Leukocyte Esterase NEGATIVE Urine WBC (Auto) 1 Urine RBC (Auto) 1 U Hyaline Cast (Auto) 2 Urine Bacteria (Auto) 1+ Squamous Epi Cells Auto 5 Amorphous Sediment Auto TRACE Urine Ascorbic Acid NEGATIVE 06/15/17 07:00 WBC RBC Hgb Hct MCV MCH MCHC RDW Plt Count Seg Neutrophils % Lymphocytes % Monocytes % Eosinophils % Basophils % Absolute Neutrophils Absolute Lymphocytes Absolute Monocytes Absolute Eosinophils Absolute Basophils Sodium Potassium Chloride Carbon Dioxide Anion Gap BUN Creatinine Est GFR ( Amer) Est GFR (Non-Af Amer) Glucose POC Glucose 358 H Calcium Total Bilirubin Direct Bilirubin Indirect Bilirubin Neonat Total Bilirubin AST ALT Alkaline Phosphatase Total Protein Albumin Urine Color Urine Appearance Urine pH Ur Specific [place] Urine Protein Urine Glucose (UA) Urine Ketones Urine Blood Urine Nitrite Urine Bilirubin Urine Urobilinogen Ur Leukocyte Esterase Urine WBC (Auto) Urine RBC (Auto) U Hyaline Cast (Auto) Urine Bacteria (Auto) Squamous Epi Cells Auto Amorphous Sediment Auto Urine Ascorbic Acid (PALMA FELIPE) Discharge <DAVID SALCEDO - Last Filed: 06/15/17 05:56> <PALMA FELIPE - Last Filed: 06/15/17 08:59> - Discharge Clinical Impression: Hyperglycemia, Hx of essential hypertension Head ache Qualifiers: Headache type: unspecified Headache chronicity pattern: acute headache Intractability: not intractable Qualified Code(s): R51 - Headache Low back pain Qualifiers: Chronicity: unspecified Back pain laterality: unspecified Sciatica presence: without sciatica Qualified Code(s): M54.5 - Low back pain Condition: Stable Disposition: HOME, SELF-CARE Instructions: Headache ([facility]), Low Back Pain ([facility]), Hyperglycemia ([facility]), Oral Narcotic Medication ([facility]) Additional Instructions: Return immediately for any new or worsening symptoms Followup with your primary care provider, call today to make a followup appointment keep a record of your blood sugars to take to your primary care providers office Prescriptions: Oxycodone HCl/Acetaminophen [Percocet 5-325 mg Tablet] 1 tab PO ASDIR PRN #15 tablet PRN Reason: Referrals: QUINCY ALEJO MD [Primary Care Provider] - 06/18/17
[2017-06-15 04:01] LABS: ABSOLUTE BASOPHILS # (AUTO) 0.1 10^3/uL (0.0-0.2); ABSOLUTE EOSINOPHILS # (AUTO) 0.2 10^3/uL (0.0-0.6); ABSOLUTE LYMPHOCYTES (AUTO) 2.1 10^3/uL (0.5-4.7); ABSOLUTE MONOCYTES (AUTO) 0.8 10^3/uL (0.1-1.4); ABSOLUTE NEUT (AUTO) 6.1 10^3/uL (1.7-8.2); BASOPHILS % (AUTO) 0.8 % (0-2); EOSINOPHILS % (AUTO) 1.8 % (0-6); HEMATOCRIT 38.4 % (36.0-47.0); HEMOGLOBIN 13.2 g/dL (12.0-15.5); HGB HCT DIFFERENCE 1.2; LYMPHOCYTES % (AUTO) 22.4 % (13-45); MEAN CORPUSCULAR HEMOGLOBIN 25.4 pg (27.0-33.4); MEAN CORPUSCULAR HGB CONC 34.4 g/dL (32.0-36.0); MEAN CORPUSCULAR VOLUME 74 fl (80-97); MONOCYTES % (AUTO) 8.7 % (3-13); RED CELL DISTRIBUTION WIDTH 14.6 % (11.5-14.0); SEGMENTED NEUTROPHILS % (AUTO) 66.3 % (42-78); WHITE BLOOD COUNT 9.2 10^3/uL (4.0-10.5)
[2017-06-15 04:06] LABS: ALANINE AMINOTRANSFERASE 20 U/L (9-52); ALBUMIN 3.4 g/dL (3.5-5.0); ALKALINE PHOSPHATASE 271 U/L (38-126); ANION GAP 12 (5-19); ASPARTATE AMINO TRANSFERASE 16 U/L (14-36); BILIRUBIN,DIRECT 0.4 mg/dL (0.0-0.4); BILIRUBIN,TOTAL 0.4 mg/dL (0.2-1.3); BLOOD UREA NITROGEN 45 mg/dL (7-20); CALCIUM 8.9 mg/dL (8.4-10.2); CARBON DIOXIDE 28 mmol/L (22-30); CHLORIDE 91 mmol/L (98-107); CREATININE RESULT 2.16 mg/dL (0.52-1.25); POTASSIUM 3.5 mmol/L (3.6-5.0); SODIUM 131.4 mmol/L (137-145); TOTAL PROTEIN 6.5 g/dL (6.3-8.2)
[2017-06-15 04:14] LABS: GLUCOSE 570 mg/dL (75-110)
[2017-06-15] MEDS ORDERED: INSULIN REG, HUMAN 100 UNIT/ML 3 ML VIAL (PYX) SUBCUT ONE (04:22)
[2017-06-15 05:20] LABS: AMORPHOUS SEDIMENT,URINE TRACE /HPF; APPEARANCE,URINE SLIGHTLY-CLOUDY; BILIRUBIN,URINE NEGATIVE (NEGATIVE); GLUCOSE, URINE >=500 mg/dL (NEGATIVE); KETONES,URINE NEGATIVE (NEGATIVE); LEUKOCYTE ESTERASE,URINE NEGATIVE (NEGATIVE); NITRITE,URINE NEGATIVE (NEGATIVE); PROTEIN,URINE 100 mg/dL (NEGATIVE); URINE SPECIFIC GRAVITY 1.008; UROBILINOGEN,URINE NEGATIVE mg/dL (<2.0)
[2017-06-15] MEDS ORDERED: MORPHINE SULFATE 10 MG/ML INJ IV ONE (06:15)
[2017-06-15] MEDS ORDERED: OXYCODONE-ACETAMINOPHEN 5-325 MG TABLET PO ONE (06:24)
--- NOTE | 2017-06-15 07:59 | RADIOLOGY REPORT (SQ) ---
EXAM DESCRIPTION: MRA HEAD WITHOUT COMPLETED DATE/TIME: 06/15/2017 7:49 am REASON FOR STUDY: ? left sided carotid dissection; headache COMPARISON: 09/21/2016. TECHNIQUE: Axial 3-D [id number] acquisition imaging performed through the brain in the area of t he [place]. Images reformatted using 3-D MIPS. LIMITATIONS: None. FINDINGS: SOURCE IMAGES: No unexpected findings on source images. No large masses. 3-D MIP: No aneurysm. No occlusions. No significant stenosis. OTHER: No other significant finding. IMPRESSION: NORMAL MRA OF THE [place]. TECHNICAL DOCUMENTATION: JOB ID: [id number] [email or web address]- All Rights Reserved
--- NOTE | 2017-06-15 08:09 | RADIOLOGY REPORT (SQ) ---
EXAM DESCRIPTION: MRA NECK WITHOUT COMPLETED DATE/TIME: 06/15/2017 7:49 am REASON FOR STUDY: ? left sided carotid dissection; headache COMPARISON: MRI, head, same day. CT, head, August 2028. MRI, head, 09/21/2016. TECHNIQUE: Axial 2-D volume acquisition imaging through the extracranial carotid and vertebral arter ies with reformatting using 3-D MIPS. LIMITATIONS: None. FINDINGS: RIGHT CAROTID ARTERY: No stenosis or occlusive changes. Limited visualization of the orig in. No evidence of dissection. LEFT CAROTID ARTERY: No stenosis or occlusive changes. Limited visualization of the origin. No evid ence of dissection. VERTEBRAL ARTERY: The extracranial portions of the vertebral basilar system are preserved without rené nosis. No aneurysmal dilatation or dissection is seen. OTHER: No other significant finding. IMPRESSION: NO SIGNIFICANT STENOSIS. No evidence of dissection. COMMENT: Quality ID #[id number]: Measurements of distal internal carotid diameter were used as the denomin ator for stenosis measurement. TECHNICAL DOCUMENTATION: JOB ID: [id number] [employer]- All Rights Reserved
[2017-06-15 09:20] VITALS: BP 140/82
== END 2017-06-15 09:30 | disposition home or self-care (01) ==
LOC: ER 03:11
DX: E11.65 Type 2 diabetes mellitus with hyperglycemia (principal); Z79.4 Long term (current) use of insulin; I10 Essential (primary) hypertension; M54.5 Low back pain; R51 Headache; R20.0 Anesthesia of skin; R20.2 Paresthesia of skin; R09.89 Other specified symptoms and signs involving the circulatory and respiratory systems; I25.10 Atherosclerotic heart disease of native coronary artery without angina pectoris; Z79.82 Long term (current) use of aspirin; Z88.5 Allergy status to narcotic agent; Z95.5 Presence of coronary angioplasty implant and graft; Z79.899 Other long term (current) drug therapy
CPT/HCPCS: 99285; 96360; 36415; 82962; 85025; 80053; 81001; 70547; 70544; A9270 ×2; J7030; J1815

== ENCOUNTER 2017-09-07 12:46 | Emergency (ER) | payer MEDICARE, OTHER ==
[2017-09-07] MEDS ORDERED: NORMAL SALINE 1000 ML 1,000 ML IV PRN (13:07)
[2017-09-07 14:12] LABS: ABSOLUTE BASOPHILS # (AUTO) 0.1 10^3/uL (0.0-0.2); ABSOLUTE EOSINOPHILS # (AUTO) 0.3 10^3/uL (0.0-0.6); ABSOLUTE LYMPHOCYTES (AUTO) 1.7 10^3/uL (0.5-4.7); ABSOLUTE MONOCYTES (AUTO) 0.8 10^3/uL (0.1-1.4); ABSOLUTE NEUT (AUTO) 6.6 10^3/uL (1.7-8.2); BASOPHILS % (AUTO) 0.7 % (0-2); EOSINOPHILS % (AUTO) 2.6 % (0-6); HEMATOCRIT 34.4 % (36.0-47.0); HGB HCT DIFFERENCE 1.6; LYMPHOCYTES % (AUTO) 18.1 % (13-45); MEAN CORPUSCULAR HEMOGLOBIN 25.8 pg (27.0-33.4); MEAN CORPUSCULAR VOLUME 74 fl (80-97); MONOCYTES % (AUTO) 8.6 % (3-13); RED BLOOD COUNT 4.67 10^6/uL (3.72-5.28); RED CELL DISTRIBUTION WIDTH 14.2 % (11.5-14.0); WHITE BLOOD COUNT 9.5 10^3/uL (4.0-10.5)
[2017-09-07] MEDS ORDERED: INSULIN REG, HUMAN 100 UNIT/ML 3 ML VIAL (PYX) IV ONE ×2 (15:00→17:16)
[2017-09-07 15:27] LABS: ALANINE AMINOTRANSFERASE 27 U/L (9-52); ALKALINE PHOSPHATASE 183 U/L (38-126); ANION GAP 9 (5-19); ASPARTATE AMINO TRANSFERASE 12 U/L (14-36); BILIRUBIN,DIRECT 0.2 mg/dL (0.0-0.4); BILIRUBIN,TOTAL 0.2 mg/dL (0.2-1.3); BLOOD UREA NITROGEN 29 mg/dL (7-20); CALCIUM 8.5 mg/dL (8.4-10.2); CARBON DIOXIDE 28 mmol/L (22-30); CHLORIDE 97 mmol/L (98-107); CREATININE RESULT 1.59 mg/dL (0.52-1.25); POTASSIUM 3.6 mmol/L (3.6-5.0); SODIUM 133.5 mmol/L (137-145); TOTAL PROTEIN 5.7 g/dL (6.3-8.2)
[2017-09-07 15:37] LABS: GLUCOSE 416 mg/dL (75-110)
[2017-09-07 16:59] LABS: APPEARANCE,URINE CLEAR; BILIRUBIN,URINE NEGATIVE (NEGATIVE); GLUCOSE, URINE >=500 mg/dL (NEGATIVE); KETONES,URINE NEGATIVE (NEGATIVE); LEUKOCYTE ESTERASE,URINE SMALL (NEGATIVE); NITRITE,URINE NEGATIVE (NEGATIVE); PROTEIN,URINE 100 mg/dL (NEGATIVE); URINE SPECIFIC GRAVITY 1.003; UROBILINOGEN,URINE NEGATIVE mg/dL (<2.0)
--- NOTE | 2017-09-07 17:00 | ER Document Report ---
ED General - General Chief Complaint: Abnormal Lab Results Stated Complaint: ABNORMAL LABS Time Seen by Provider: 09/07/17 13:05 Mode of Arrival: Ambulatory Information source: Patient Notes: 71-year-old female presents with complaints of dehydration and abnormal lab value. Patient states she was told by her primary care physician's office coming to be evaluated for her elevated hemoglobin A1c. Patient denies any fever but admits to generalized achiness and not feeling well TRAVEL OUTSIDE OF THE [place] IN LAST 30 DAYS: No - HPI Onset: Yesterday Onset/Duration: Persistent Quality of pain: Achy Severity: Mild Pain Level: 1 Associated symptoms: Weakness Exacerbated by: Denies Relieved by: Denies Similar symptoms previously: Yes Recently seen / treated by doctor: Yes - Seen in primary care office yesterday - Related Data Allergies/Adverse Reactions: codeine [Codeine] Allergy (Mild, Verified 09/07/17 12:47) meperidine HCl [From Demerol] Allergy (Mild, Verified 09/07/17 12:47) morphine Allergy (Verified 09/07/17 12:47) Past Medical History - Social History Smoking Status: Never Smoker Cigarette use (# per day): No Chew tobacco use (# tins/day): No Smoking Education Provided: No Frequency of alcohol use: None Drug Abuse: None Family History: Reviewed & Not Pertinent, CAD Patient has suicidal ideation: No Patient has homicidal ideation: No - Past Medical History Cardiac Medical History: Reports: Hx Coronary Artery Disease, Hx Hypercholesterolemia, Hx Hypertension Neurological Medical History: Denies: Hx Seizures Endocrine Medical History: Reports: Hx Diabetes Mellitus Type 1, Hx Diabetes Mellitus Type 2 - Diagnosed about 12 years ago Renal/ Medical History: Reports: Hx Ovarian Cysts. Denies: Hx Peritoneal Dialysis Malignancy Medical History: Reports: Hx Colorectal Cancer - Status post colon resection. Musculoskeltal Medical History: Reports Hx Arthritis Psychiatric Medical History: Denies: Hx Depression Past Surgical History: Reports: Hx Cardiac Catheterization - stents x 2, Hx Gynecologic Surgery, Hx Hysterectomy, Hx Tubal Ligation, Other - Colon resection - Immunizations Immunizations up to date: Yes Hx Diphtheria, Pertussis, Tetanus Vaccination: Yes Review of Systems - Review of Systems Notes: REVIEW OF SYSTEMS: CONSTITUTIONAL : Denies fever, chills, or sweats. Denies recent illness. EENT: Denies eye, ear, throat, or mouth pain or symptoms. Denies nasal or sinus congestion or discharge. Denies throat, tongue, or mouth swelling or difficulty swallowing. CARDIOVASCULAR: Denies chest pain. Denies palpitations or racing or irregular heart beat. Denies ankle edema. RESPIRATORY: Denies cough, cold, or chest congestion. Denies shortness of breath, difficulty breathing, or wheezing. GASTROINTESTINAL: Denies abdominal pain or distention. Denies nausea, vomiting , or diarrhea. Denies blood in vomitus, stools, or per rectum. Denies black, tarry stools. Denies constipation. GENITOURINARY: Denies difficulty urinating, painful urination, burning, frequency, blood in urine, or discharge. FEMALE GENITOURINARY: Denies vaginal bleeding, heavy or abnormal periods, irregular periods. Denies vaginal discharge or odor. MUSCULOSKELETAL: Admits to generalized body aches SKIN: Denies rash, lesions or sores. HEMATOLOGIC : Denies easy bruising or bleeding. LYMPHATIC: Denies swollen, enlarged glands. NEUROLOGICAL: Denies confusion or altered mental status. Denies passing out or loss of consciousness. Denies dizziness or lightheadedness. Denies headache. Denies weakness or paralysis or loss of use of either side. Denies problems with gait or speech. Denies sensory loss, numbness, or tingling. Denies seizures. PSYCHIATRIC: Denies anxiety or stress. Denies depression, suicidal ideation, or homicidal ideation. ALL OTHER SYSTEMS REVIEWED AND NEGATIVE. PHYSICAL EXAMINATION: GENERAL: Well-appearing, well-nourished and in no acute distress. HEAD: Atraumatic, normocephalic. EYES: Pupils equal round and reactive to light, extraocular movements intact, conjunctiva are normal. ENT: Nares patent, oropharynx clear without exudates. Moist mucous membranes. NECK: Normal range of motion, supple without lymphadenopathy LUNGS: Breath sounds clear to auscultation bilaterally and equal. No wheezes rales or rhonchi. HEART: Regular rate and rhythm without murmurs ABDOMEN: Soft, nontender, nondistended abdomen. No guarding, no rebound. No masses appreciated. Female : deferred Musculoskeletal: Normal range of motion, no pitting or edema. No cyanosis. NEUROLOGICAL: Cranial nerves grossly intact. Normal speech, normal gait. Normal sensory, motor exams PSYCH: Normal mood, normal affect. SKIN: Warm, Dry, normal turgor, no rashes or lesions noted. Dictation was performed using [employer] voice recognition software Physical Exam - Vital signs Vitals: Temp Pulse Resp BP Pulse Ox 98.1 F 57 L 15 146/100 H 96 09/07/17 12:53 09/07/17 12:53 09/07/17 12:53 09/07/17 12:53 09/07/17 12:53 Course - Re-evaluation Re-evalutation: 09/07/17 19:06 I did speak with the patient's primary care physician and it appears the concerning lab value was a glucose of 600 yesterday in the office, upon arrival patient's blood sugar was elevated at 416, she was given IV fluids insulin and her blood sugar did improve the 197. She is therefore stable for discharge. I will have her follow-up with her primary care physician for further evaluation and reevaluation of her diabetes control as it is quite poor at this time Patient otherwise states she feels great wishes to be discharged home After performing a Medical Screening Examination, I estimate there is LOW risk for ACUTE CORONARY SYNDROME, PULMONARY EMBOLI, RESPIRATORY FAILURE, SEPSIS OR MENINGITIS, thus I consider the discharge disposition reasonable. I have reevaluated this patient multiple times and no significant life threatening changes are noted. The patient and I have discussed the diagnosis and risks, and we agree with discharging home with close follow-up. We also discussed returning to the Emergency Department immediately if new or worsening symptoms occur. We have discussed the symptoms which are most concerning (e.g., changing or worsening pain, trouble swallowing or breathing, neck stiffness, fever) that necessitate immediate return. - Vital Signs Vital signs: Temp Pulse Resp BP Pulse Ox 98.1 F 58 L 20 141/85 H 100 09/07/17 12:53 09/07/17 18:58 09/07/17 18:58 09/07/17 18:58 09/07/17 18:58 - Laboratory Result Diagrams: 09/07/17 13:34 09/07/17 14:57 Laboratory results interpreted by me: 09/07/17 09/07/17 09/07/17 13:34 14:57 16:10 Hct 34.4 L MCV 74 L MCH 25.8 L RDW 14.2 H Sodium 133.5 L Chloride 97 L BUN 29 H Creatinine 1.59 H Est GFR ( Amer) 39 L Est GFR (Non-Af Amer) 32 L Glucose 416 H* POC Glucose AST 12 L Alkaline Phosphatase 183 H Total Protein 5.7 L Albumin 3.0 L Urine Protein 100 H Urine Glucose (UA) >=500 H Ur Leukocyte Esterase SMALL H 09/07/17 09/07/17 16:33 17:07 Hct MCV MCH RDW Sodium Chloride BUN Creatinine Est GFR ( Amer) Est GFR (Non-Af Amer) Glucose POC Glucose 375 H 377 H AST Alkaline Phosphatase Total Protein Albumin Urine Protein Urine Glucose (UA) Ur Leukocyte Esterase Discharge - Discharge Clinical Impression: Hyperglycemia, Essential hypertension Condition: Stable Disposition: HOME, SELF-CARE Instructions: Hyperglycemia ([facility]) Additional Instructions: Follow up with your physician tomorrow for further care or return to the ED IMMEDIATELY if symptoms worsen or new concerns occur. If you cannot afford to follow up with your primary care physician a list of low cost clinics have been provided at the end of your discharge papers as well.
[2017-09-07] MEDS ORDERED: NORMAL SALINE 1000 ML 1,000 ML IV ONE (17:16)
[2017-09-07 18:59] VITALS: BP 141/85
== END 2017-09-07 19:00 | disposition home or self-care (01) ==
LOC: ER 12:46
DX: R73.9 Hyperglycemia, unspecified (principal); I10 Essential (primary) hypertension; E86.0 Dehydration
CPT/HCPCS: 99283; 96360; 96361; 36415; 82962; 85025; 80053; 81001; A9270; J7030; J1815

== ENCOUNTER → 2017-09-10 | Outpatient (CLI) | payer MEDICARE, OTHER ==
--- NOTE | 2017-09-11 08:58 | RADIOLOGY REPORT (SQ) ---
EXAM DESCRIPTION: MRI LUMBAR SPINE WITHOUT COMPLETED DATE/TIME: 09/10/2017 5:46 pm REASON FOR STUDY: RADICULOPATHY, LUMBAR REGION M54.16 RADICULOPATHY, LUMBAR REGION COMPARISON: None. TECHNIQUE: Sagittal and Axial imaging includes T1, T2, STIR and gradient echo sequences. Coronal T2/ HASTE imaging. LIMITATIONS: None. FINDINGS: VISUALIZED UPPER ABDOMEN: Limited evaluation. No acute or suspicious findings suggested. SEGMENTATION: No transitional anatomy. The lowest well-developed disc space is labeled L5-S1. ALIGNMENT: Anatomic. VERTEBRAE: Intact. BONE MARROW: There is edema in the body of L4 most likely secondary to disc degenerative disease. No loss of height. There is edema in the superior endplate of L5 as well. DISC SIGNAL: There is loss of normal water signal at L3-L4 and L4-L5. POSTERIOR ELEMENTS: Generally intact. No pars defect evident. HARDWARE: None in the spine. CORD AND CONUS: Normal in size and signal intensity. Conus at the appropriate level. SOFT TISSUES: No aortic aneurysm seen. No bulky retroperitoneal adenopathy or mass. No paraspinal mas s or fluid. L1-L2: No significant spinal stenosis or exit foraminal stenosis. L2-L3: No significant spinal stenosis or exit foraminal stenosis. L3-L4: There is mild annular disc bulging. This along with facet arthropathy results in mild central stenosis and mild foraminal narrowing right greater than left. L4-L5: There is a central protrusion. There is annular disc bulging. There is facet arthropathy. T his results in moderate to severe central stenosis and bilateral foraminal narrowing left greater pola n right. L5-S1: No significant spinal stenosis or exit foraminal stenosis. LOWER THORACIC: Incompletely imaged. No stenosis seen. SACRUM: Visualized upper sacrum intact. OTHER: No other significant findings. IMPRESSION: 1. Annular bulging at L4-L5 with a central protrusion resulting in central stenosis and bilateral foraminal narrowing. There is edema in the inferior aspect of the L4 vertebral body and s uperior endplate of L5. 2. Annular bulging at L3-L4 along with facet arthropathy resulting in mild central stenosis and fora julia narrowing right greater than left. TECHNICAL DOCUMENTATION: JOB ID: [id number] [employer]- All Rights Reserved
== END ==
LOC: RAD 16:50
PROVIDERS: ATTEND Internal Medicine
DX: M54.16 Radiculopathy, lumbar region (principal); M48.061 Spinal stenosis, lumbar region without neurogenic claudication
CPT/HCPCS: 72148

== ENCOUNTER 2017-11-03 03:20 | Inpatient (IN) | payer MEDICARE ==
[2017-11-03] MEDS ORDERED: NORMAL SALINE 500 ML IV ONE (03:40)
[2017-11-03] MEDS ORDERED: LABETALOL HCL INJ 20 MG/4 ML DISP.SYRIN IV ONE (03:40)
[2017-11-03] MEDS ORDERED: ONDANSETRON HCL INJ/PF 4 MG/2 ML SDV IV ONE (03:40)
--- NOTE | 2017-11-03 04:01 | ER Document Report ---
ED General - General Stated Complaint: NAUSEA, VOMITING Time Seen by Provider: 11/03/17 03:30 Notes: Patient is a 71-year-old female with a history of hypertension. She presents with complaint of worsening blood pressure as well as pain in the upper abdomen rating into the chest. Also vomiting. No diarrhea. Last bowel movement was today and was normal. Symptoms started this evening. She had similar symptoms back in December and at that time she had a C. difficile infection but she also had diarrhea at that time. She currently does not have diarrhea. She does take multiple blood pressure medications. She denies missing her dosages. Her blood pressure medications include valsartan hydrochlorothiazide, metoprolol, amlodipine. She also takes furosemide. She denies recent fevers. She denies difficulty breathing. She has no other complaints at this time. She says the pain does not radiate to her back. She says she does have some back pain but this is chronic related to spinal stenosis. No new back pain associated with tonight's abdominal pain. TRAVEL OUTSIDE OF THE [place] IN LAST 30 DAYS: No - Related Data Allergies/Adverse Reactions: codeine [Codeine] Allergy (Mild, Verified 09/07/17 12:47) meperidine HCl [From Demerol] Allergy (Mild, Verified 09/07/17 12:47) morphine Allergy (Verified 09/07/17 12:47) Past Medical History - Social History Smoking Status: Never Smoker Frequency of alcohol use: None Drug Abuse: None Family History: Reviewed & Not Pertinent, CAD - Past Medical History Cardiac Medical History: Reports: Hx Coronary Artery Disease, Hx Hypercholesterolemia, Hx Hypertension Neurological Medical History: Denies: Hx Seizures Endocrine Medical History: Reports: Hx Diabetes Mellitus Type 1, Hx Diabetes Mellitus Type 2 - Diagnosed about 12 years ago Renal/ Medical History: Reports: Hx Ovarian Cysts. Denies: Hx Peritoneal Dialysis Malignancy Medical History: Reports: Hx Colorectal Cancer - Status post colon resection. Musculoskeltal Medical History: Reports Hx Arthritis Psychiatric Medical History: Denies: Hx Depression Past Surgical History: Reports: Hx Cardiac Catheterization - stents x 2, Hx Gynecologic Surgery, Hx Hysterectomy, Hx Tubal Ligation, Other - Colon resection - Immunizations Immunizations up to date: Yes Hx Diphtheria, Pertussis, Tetanus Vaccination: Yes Review of Systems - Review of Systems Notes: My Normal Review Basic REVIEW OF SYSTEMS: CONSTITUTIONAL : Denies fever, chills, or sweats. Denies recent illness. EENT: Denies eye, ear, throat, or mouth pain or symptoms. Denies nasal or sinus congestion. CARDIOVASCULAR: Some lower chest pain. RESPIRATORY: Denies cough, cold, or chest congestion. Denies shortness of breath, difficulty breathing, or wheezing. GASTROINTESTINAL: Abdominal pain and vomiting. GENITOURINARY: Denies difficulty urinating, painful urination, burning, frequency, or blood in urine. MUSCULOSKELETAL: Denies neck or back pain or joint pain or swelling. SKIN: Denies rash or skin lesions. HEMATOLOGIC : Denies easy bruising or bleeding. NEUROLOGICAL: Denies altered mental status or loss of consciousness. Denies headache. Denies weakness or paralysis or loss of use of either side. Denies problems with gait or speech. Denies sensory or motor loss. ALL OTHER SYSTEMS REVIEWED AND NEGATIVE. Physical Exam - Vital signs Vitals: Resp BP Pulse Ox 15 212/111 H 99 11/03/17 03:25 11/03/17 03:25 11/03/17 03:25 - Notes Notes: General Appearance: Well nourished, alert, cooperative, no acute distress, moderate obvious discomfort. Actively vomiting. Vomit is normal gastric acid in color. Vitals: reviewed, See vital signs table. Head: no swelling or tenderness to the head Eyes: PERRL, EOMI, Conjuctiva clear Mouth: No decreasd moisture Lungs: No wheezing, No rales, No rhonci, No accessory muscle use, good air exchange bilaterally. Heart: Tachycardic rate, Regular rythm, No murmur, no rub Abdomen: Normal BS, soft, No rigidity, mild epigastric abdominal tenderness to palpation. Remainder of abdomen is nontender, No guarding, no rebound, no abdominal masses, no organomegaly Extremities: strength 5/5 in all extremities, good pulses in all extremities, no swelling or tenderness in the extremities, no edema. Skin: warm, dry, appropriate color, no rash Neuro: speech clear, oriented x 3, normal affect, responds appropriately to questions. Course - Re-evaluation Re-evalutation: 11/03/17 06:11 Patient is now resting much more comfortably. Her nausea is no improved. Her pain is also improving. She still hypertensive. Blood pressure after labetalol is 206/96. It is morning time and she has multiple antihypertensive medications that she should takes in the morning. I have ordered these medications for her to get to help continue to improve her blood pressure. CT scan was obtained because of the patient's abdominal pain with vomiting. CT scan was performed without IV contrast because of her acute renal insufficiency. CT scan was negative for any acute concerning finding. I have spoken with Dr. Alejo. Informed with the patient's laboratory findings as well as her initial presentation and exam. He agrees with the patient for further workup and treatment of what appears to be hypertensive urgency with abdominal pain and vomiting. Patient does have previous history of gastritis. Therefore did give her some IV Protonix in case it is contributing to her symptoms tonight. Patient has equal peripheral distal pulses. She has no pain rating to her back. CT scan does not show evidence of aortic aneurysm. I therefore think that dissection is highly unlikely. Dictation of this chart was performed using voice recognition software; therefore, there may be some unintended grammatical errors. - Vital Signs Vital signs: Temp Pulse Resp BP Pulse Ox 98.3 F 16 214/102 H 98 11/03/17 03:33 11/03/17 05:01 11/03/17 05:01 11/03/17 05:01 - Laboratory Result Diagrams: 11/03/17 03:50 11/03/17 03:50 Laboratory results interpreted by me: 11/03/17 11/03/17 03:50 03:50 WBC 12.5 H RBC 5.66 H MCV 75 L MCH 25.0 L RDW 14.4 H Seg Neutrophils % 88.0 H Lymphocytes % 8.9 L Monocytes % 2.4 L Absolute Neutrophils 11.0 H Potassium 3.5 L BUN 25 H Creatinine 1.97 H Est GFR ( Amer) 30 L Est GFR (Non-Af Amer) 25 L Glucose 350 H Alkaline Phosphatase 149 H - EKG Interpretation by Me Additional EKG results interpreted by me: 11/03/17 04:00 EKG is reviewed and interpreted by me. EKG shows sinus tachycardia with a rate of [address] segment elevation. Patient does have some ST segment depression and T-wave inversions in the lateral leads which are unchanged comparison to her previous EKG from January 16, 2017. CO interval, QRS duration are within normal range. QTc interval is prolonged. Discharge - Discharge Clinical Impression: Hypertensive crisis Abdominal pain Qualifiers: Abdominal location: epigastric Qualified Code(s): R10.13 - Epigastric pain Vomiting Qualifiers: Vomiting type: unspecified Vomiting Intractability: non-intractable Nausea presence: with nausea Qualified Code(s): R11.2 - Nausea with vomiting, unspecified Condition: Stable Disposition: ADMITTED INPATIENT Admitting Provider: Mamie Unit Admitted: [facility] Referrals: QUINCY ALEJO MD [Primary Care Provider] - Follow up as needed
--- NOTE | 2017-11-03 04:12 | RADIOLOGY REPORT (SQ) ---
EXAM DESCRIPTION: CHEST SINGLE VIEW CLINICAL HISTORY: chest pain, abdominal pain COMPARISON: 11/17/2016 FINDINGS: Single frontal view of the chest. Tortuosity of thoracic aorta. Heart is not enlarged. Leads overlie the chest. No consolidation, pneumothorax, or pleural effusion. No displaced rib fractures identified. Upper abdominal soft tissues are unremarkable. IMPRESSION: 1. No acute pulmonary process identified.
[2017-11-03] MEDS ORDERED: HYDROMORPHONE HCL INJ/PF 2 MG/ML AMPULE IV ONE (04:14)
[2017-11-03 04:19] LABS: ABSOLUTE BASOPHILS # (AUTO) 0.1 10^3/uL (0.0-0.2); ABSOLUTE LYMPHOCYTES (AUTO) 1.1 10^3/uL (0.5-4.7); ABSOLUTE MONOCYTES (AUTO) 0.3 10^3/uL (0.1-1.4); BASOPHILS % (AUTO) 0.7 % (0-2); HEMATOCRIT 42.4 % (36.0-47.0); HEMOGLOBIN 14.1 g/dL (12.0-15.5); LYMPHOCYTES % (AUTO) 8.9 % (13-45); MEAN CORPUSCULAR HGB CONC 33.4 g/dL (32.0-36.0); MEAN CORPUSCULAR VOLUME 75 fl (80-97); MONOCYTES % (AUTO) 2.4 % (3-13); PLATELET COUNT 316 10^3/uL (150-450); RED BLOOD COUNT 5.66 10^6/uL (3.72-5.28); RED CELL DISTRIBUTION WIDTH 14.4 % (11.5-14.0); TOTAL CELLS COUNTED % (AUTO) 100 %; WHITE BLOOD COUNT 12.5 10^3/uL (4.0-10.5)
[2017-11-03 04:29] LABS: ALANINE AMINOTRANSFERASE 21 U/L (9-52); ALBUMIN 4.2 g/dL (3.5-5.0); ALKALINE PHOSPHATASE 149 U/L (38-126); ANION GAP 19 (5-19); ASPARTATE AMINO TRANSFERASE 26 U/L (14-36); BILIRUBIN,DIRECT 0.3 mg/dL (0.0-0.4); BILIRUBIN,TOTAL 0.6 mg/dL (0.2-1.3); BLOOD UREA NITROGEN 25 mg/dL (7-20); CALCIUM 9.9 mg/dL (8.4-10.2); CARBON DIOXIDE 25 mmol/L (22-30); CHLORIDE 99 mmol/L (98-107); GLUCOSE 350 mg/dL (75-110); LIPASE 132.6 U/L (23-300); POTASSIUM 3.5 mmol/L (3.6-5.0); SODIUM 142.9 mmol/L (137-145); TOTAL PROTEIN 7.5 g/dL (6.3-8.2)
[2017-11-03] MEDS ORDERED: INSULIN REG, HUMAN 100 UNIT/ML 3 ML VIAL (PYX) SUBCUT ONE (04:48)
--- NOTE | 2017-11-03 05:36 | RADIOLOGY REPORT (SQ) ---
EXAM DESCRIPTION: CT ABDOMEN AND PELVIS WITHOUT CONTRAST CLINICAL HISTORY: Upper abdominal pain. COMPARISON: 12/11/2016 TECHNIQUE: CT of the abdomen and pelvis without IV contrast. FINDINGS: Abdomen: The liver has normal size and density. No calcified gallstones. The spleen, pancreas, and adrenal glands are unremarkable. The kidneys have normal size and contour without evidence of hydronephrosis. No obstructing ureteral calculi. Aortoiliac atherosclerosis. IVC is unremarkable. No free intraperitoneal air. The stomach and duodenum have normal course. Pelvis: Prior hysterectomy. Prior right hemicolectomy. Urinary bladder is unremarkable. No free pelvic fluid or lymphadenopathy. No dilated loops of large or small bowel. Small ventral hernia. The visualized lung bases demonstrate dependent atelectasis. No destructive bone lesions identified. Degenerative change of the spine DLP: 886.15 mGy-cm IMPRESSION: 1. No acute inflammatory or obstructive abnormality identified. This exam was performed according to our departmental dose-optimization program, which includes automated exposure control, adjustment of the mA and/or kV according to patient size and/or use of iterative reconstruction technique.
[2017-11-03] MEDS ORDERED: PANTOPRAZOLE SODIUM 40 MG VIAL IV ONE (05:55)
[2017-11-03] MEDS ORDERED: HYDROCHLOROTHIAZIDE 25 MG TABLET PO ONE ×2 (05:56→11:30)
[2017-11-03] MEDS ORDERED: METOPROLOL TARTRATE 100 MG TABLET PO ONE ×2 (05:56→12:30)
[2017-11-03] MEDS ORDERED: VALSARTAN 160 MG TABLET PO ONE ×2 (05:56→11:30)
[2017-11-03] MEDS ORDERED: FUROSEMIDE 20 MG TABLET PO ONE (05:57)
[2017-11-03] MEDS ORDERED: AMLODIPINE BESYLATE 10 MG TABLET PO ONE ×2 (05:57→08:00)
[2017-11-03] MEDS ORDERED: DEXTROSE 40% GEL 15 GM TUBE PO PRN ×2 (06:36)
[2017-11-03] MEDS ORDERED: GLUCAGON,HUMAN RECOMB 1 MG INJ IM PRN (06:36)
[2017-11-03] MEDS ORDERED: DEXTROSE 50%-WATER 25 GM/50 ML DISP.SYRIN IV PRN ×2 (06:36)
[2017-11-03 07:06] LABS: APPEARANCE,URINE SLIGHTLY-CLOUDY; BILIRUBIN,URINE NEGATIVE (NEGATIVE); COLOR,URINE YELLOW; GLUCOSE, URINE >=500 mg/dL (NEGATIVE); KETONES,URINE 20 mg/dL (NEGATIVE); LEUKOCYTE ESTERASE,URINE NEGATIVE (NEGATIVE); NITRITE,URINE NEGATIVE (NEGATIVE); PROTEIN,URINE >=500 mg/dL (NEGATIVE); URINE SPECIFIC GRAVITY 1.016; UROBILINOGEN,URINE NEGATIVE mg/dL (<2.0)
[2017-11-03] MEDS ORDERED: OXYCODONE-ACETAMINOPHEN 5-325 MG TABLET PO PRN (07:13)
[2017-11-03] MEDS ORDERED: (PENDING PHARMACY ID) (Valsartan/Hydrochlorothiazide [Valsartan-Hctz 320-25 Mg Tab] 1 TAB) PO SCH ×2 (07:15→11:45)
[2017-11-03 07:37] LABS: URINE CREATININE 121.7 mg/dL (15-278)
[2017-11-03 07:59] LABS: UR PRO/CREAT RATIO RESULT 13.6 mg/mg (0.0-0.2); URINE PROTEIN 1652.8 mg/dL (<12)
[2017-11-03] MEDS ORDERED: INSULIN GLARGINE,HUM.REC.ANLOG 300 UNIT/3 ML INSULN.PEN SUBCUT ONE (08:00)
[2017-11-03] MEDS ORDERED: CLONIDINE HCL 0.2 MG TABLET PO ONE ×3 (08:00→12:30)
[2017-11-03] MEDS ORDERED: FUROSEMIDE 40 MG TABLET PO ONE (08:00)
[2017-11-03] MEDS ORDERED: METOPROLOL SUCCINATE 50 MG TAB.SR.24H PO ONE (08:00)
[2017-11-03] MEDS ORDERED: ASPIRIN 81 MG TABLET, CHEWABLE PO ONE (08:00)
--- NOTE | 2017-11-03 08:52 | RADIOLOGY REPORT (SQ) ---
EXAM DESCRIPTION: U/S ABDOMEN LIMITED W/O DOP COMPLETED DATE/TIME: 11/03/2017 8:05 am REASON FOR STUDY: epigastric pain COMPARISON: None. TECHNIQUE: Dynamic and static grayscale images acquired of the right upper quadrant and recorded on PACS. Additional selected color Doppler and spectral images recorded. LIMITATIONS: Study limited due to acoustical interference from fat or from air in the bowel. FINDINGS: PANCREAS: Obscured. LIVER: Increased echogenicity secondary to diffuse fatty infiltration. LIVER VASCULATURE: Normal directional flow of the main portal vein and hepatic veins. GALLBLADDER: No stones. Normal wall thickness. No pericholecystic fluid. ULTRASOUND-DETECTED WAY'S SIGN: Negative. INTRAHEPATIC DUCTS AND COMMON DUCT: CBD and intrahepatic ducts normal caliber. No filling defects. INFERIOR VENA CAVA: Normal flow. AORTA: Obscured. RIGHT KIDNEY: Normal size. Normal echogenicity. No solid or suspicious masses. No hydronephrosis. No calcifications. PERITONEAL CAVITY AND RIGHT PLEURAL SPACE: No ascites or effusions. OTHER: No other significant finding. IMPRESSION: LIMITED STUDY. FATTY INFILTRATION OF THE LIVER. NO OTHER SIGNIFICANT FINDINGS. TECHNICAL DOCUMENTATION: JOB ID: [id number] [employer]- All Rights Reserved
[2017-11-03 09:21] LABS: INTERNATIONAL RATION (INR) 1.04; PARTIAL THROMBOPLASTIN TIME 28.3 SEC (23.5-35.8); PROTHROMBIN TIME 14.3 SEC (11.4-15.4)
[2017-11-03 09:22] LABS: LIPASE 120.7 U/L (23-300)
[2017-11-03 09:33] LABS: CREATINE KINASE MB 3.48 ng/mL (<4.55)
[2017-11-03 09:37] LABS: TROPONIN I 0.063 ng/mL
[2017-11-03 09:40] LABS: FREE T4 (FREE THYROXINE) 1.4 ng/dL (0.78-2.19)
[2017-11-03] MEDS ORDERED: INFLUENZA ADLT QUAD (36MOS+) 2017-18 VAC 0.5 ML SYR IM PRN (09:53)
[2017-11-03 09:54] LABS: THYROID STIMULATING HORMONE 1.12 uIU/mL (0.47-4.68)
[2017-11-03] MEDS: ONDANSETRON HCL 8 MG TABLET PO SCH ×2 (10:17→18:45)
[2017-11-03] MEDS: NICARDIPINE HCL RTU, ISO-OS 20 MG/200 ML RTUINJ IV PRN ×3 (10:19→18:41)
--- NOTE | 2017-11-03 10:24 | EKG REPORT ---
SEVERITY:- ABNORMAL ECG - SINUS TACHYCARDIA LVH WITH IVCD, LAD AND SECONDARY REPOL ABNRM VS ISCHEMIA : Confirmed by: Kezia Mensah 03-Nov-2017 10:23:23
[2017-11-03] MEDS: INSULIN GLARGINE,HUM.REC.ANLOG 300 UNIT/3 ML INSULN.PEN SUBCUT SCH ×2 (10:26→22:03)
[2017-11-03] MEDS ORDERED: ONDANSETRON HCL INJ/PF 4 MG/2 ML SDV IV PRN (10:41)
[2017-11-03] MEDS ORDERED: ONDANSETRON HCL INJ/PF 4 MG/2 ML SDV ONE (11:11)
[2017-11-03] MEDS: INSULIN LISPRO 100 UNIT/ML 3 ML VIAL SUBCUT PRN (11:15)
[2017-11-03] MEDS: ASPIRIN 81 MG TABLET, ENT COATED PO SCH (13:43)
[2017-11-03] MEDS ORDERED: CLONIDINE HCL 0.2 MG TABLET PO SCH (14:00)
[2017-11-03] MEDS: HEPARIN SOD (PORCINE) 5,000 UNIT/ML 1 ML SYRINGE SUBCUT SCH ×2 (14:51→22:02)
[2017-11-03 16:26] LABS: CREATINE KINASE MB 4.75 ng/mL (<4.55); TROPONIN I 0.093 ng/mL
[2017-11-03] MEDS: ONDANSETRON HCL INJ/PF 4 MG/2 ML SDV IV PRN (18:45)
--- NOTE | 2017-11-03 20:19 | PDOC H&P ---
History of Present Illness Admission Date/PCP: 11/03/17 06:45 QUINCY ALEJO MD History of Present Illness: YG METZ is a 71 year old female, she came to the emergency room for evaluation of epigastric pain, nausea ,. She was evaluated in the emergency room vomiting a CAT scan of the abdomen and pelvis with no contrast was ordered it was negative, ultrasound of the upper abdomen was negative. The blood pressure was severely elevated in the emergency hypertensive range. She had a history of diabetes mellitus complicated with retinopathy, nephropathy, with nephrotic range proteinuria. Past Medical History Cardiac Medical History: Reports: Coronary Artery Disease, Hyperlipidema, Hypertension Endocrine Medical History: Reports: Diabetes Mellitus Type 2 - Diagnosed about 12 years ago, Obesity Renal/ Medical History: Reports: Chronic Kidney Disease, Other - Chronic kidney disease stage III, diabetes nephropathy, nephrotic range pro Musculoskeltal Medical History: Reports: Arthritis, Other - Chronic back pain Past Surgical History Past Surgical History: Reports: Cardiac Catheterization - stents x 2, Hysterectomy, Tubal Ligation, Other - Colon resection Social History Smoking Status: Never Smoker Frequency of Alcohol Use: None Hx Recreational Drug Use: No Drugs: None Hx Prescription Drug Abuse: No - Advance Directive Resuscitation Status: Full Code Family History Family History: Reviewed & Not Pertinent, CAD Parental Family History Reviewed: Yes Children Family History Reviewed: Yes Sibling(s) Family History Reviewed.: Yes Medication/Allergy Home Medications: Aspirin [Ecotrin 81 mg EC Tablet] 81 mg PO DAILY 11/03/17 Atorvastatin Calcium [Lipitor 80 mg Tablet] 80 mg PO QHS 11/03/17 Clonidine HCl [Catapres 0.2 mg Tablet] 0.3 mg PO Q12 11/03/17 Furosemide [Lasix 40 mg Tablet] 40 mg PO DAILY 11/03/17 Metoprolol Tartrate [Lopressor 100 mg Tablet] 100 mg PO Q12 11/03/17 Valsartan/Hydrochlorothiazide [Valsartan-Hctz 320-25 mg Tab] 1 tab PO DAILY 07/11 Allergies/Adverse Reactions: codeine [Codeine] Allergy (Mild, Verified 09/07/17 12:47) meperidine HCl [From Demerol] Allergy (Mild, Verified 09/07/17 12:47) morphine Allergy (Verified 09/07/17 12:47) Review of Systems Constitutional: PRESENT: fatigue Eyes: ABSENT: visual disturbances Ears: ABSENT: hearing changes Cardiovascular: ABSENT: chest pain, dyspnea on exertion, edema, orthropnea, palpitations Respiratory: ABSENT: cough, hemoptysis Gastrointestinal: PRESENT: abdominal pain, nausea, vomiting Genitourinary: ABSENT: dysuria, hematuria Musculoskeletal: ABSENT: joint swelling Integumentary: ABSENT: rash, wounds Neurological: ABSENT: abnormal gait, abnormal speech, confusion, dizziness, focal weakness, syncope Psychiatric: ABSENT: anxiety, depression, homidical ideation, suicidal ideation Endocrine: ABSENT: cold intolerance, heat intolerance, menstrual abnormalities, polydipsia, polyuria Hematologic/Lymphatic: ABSENT: easy bleeding, easy bruising, lymphadenopathy Physical Exam Vital Signs: Temp Pulse Resp BP Pulse Ox 98.1 F 92 14 169/81 H 99 11/03/17 18:00 11/03/17 20:00 11/03/17 18:06 11/03/17 18:06 11/03/17 18:06 Intake & Output 11/02/17 11/03/17 11/04/17 06:59 06:59 06:59 Intake Total 712 Output Total 0 Balance 712 Weight 86.9 kg General appearance: PRESENT: no acute distress, well-developed, well-nourished Head exam: PRESENT: atraumatic, normocephalic Eye exam: PRESENT: conjunctiva pink, EOMI, PERRLA Ear exam: PRESENT: normal external ear exam Mouth exam: PRESENT: moist, tongue midline Neck exam: PRESENT: full ROM Respiratory exam: PRESENT: clear to auscultation jeanette Cardiovascular exam: PRESENT: RRR, +S1, +S2 Pulses: PRESENT: normal dorsalis pedis pul, +2 pedal pulses bilateral Vascular exam: PRESENT: normal capillary refill GI/Abdominal exam: PRESENT: normal bowel sounds, soft Rectal exam: PRESENT: deferred Neurological exam: PRESENT: alert, awake, oriented to person, oriented to place , oriented to time, oriented to situation, CN II-XII grossly intact Psychiatric exam: PRESENT: appropriate affect, normal mood Skin exam: PRESENT: dry, intact, warm Results Laboratory Results: 11/03/17 11/03/17 11/03/17 08:47 08:47 08:47 Phosphorus 5.0 H Magnesium 1.8 Ammonia < 8.7 L Amylase 77 Lipase 120.7 TSH 1.12 Free T4 1.40 11/03/17 11/03/17 11/03/17 08:47 08:47 08:47 Creatine Kinase 75 CK-MB (CK-2) 3.48 Troponin I 0.063 NT-Pro-B Natriuret Pep 2220 H 11/03/17 11/03/17 15:30 15:30 Creatine Kinase 88 CK-MB (CK-2) 4.75 H Troponin I 0.093 NT-Pro-B Natriuret Pep Impressions: Abdomen Ultrasound 11/03/17 00:00 IMPRESSION: LIMITED STUDY. FATTY INFILTRATION OF THE LIVER. NO OTHER SIGNIFICANT FINDINGS. Chest X-Ray 11/03/17 03:41 IMPRESSION: 1. No acute pulmonary process identified. Abdomen/Pelvis CT 11/03/17 04:48 IMPRESSION: 1. No acute inflammatory or obstructive abnormality identified. This exam was performed according to our departmental dose-optimization program, which includes automated exposure control, adjustment of the mA and/or kV according to patient size and/or use of iterative reconstruction technique. Assessment & Plan - Diagnosis (1) Hypertensive emergency Is this a current diagnosis for this admission?: Yes Plan: Start patient on Cardene infusion (2) Epigastric pain Is this a current diagnosis for this admission?: Yes Plan: Start empirically on Protonix IV (3) Type 2 diabetes mellitus Qualifiers: Diabetes mellitus complication status: with kidney complications Diabetes mellitus complication detail: with chronic kidney disease Diabetes mellitus instructional developer insulin use: with instructional developer use Chronic kidney disease stage: stage 3 (moderate) Qualified Code(s): E11.22 - Type 2 diabetes mellitus with diabetic chronic kidney disease; N18.3 - Chronic kidney disease, stage 3 ( moderate); N18.3 - Chronic kidney disease, stage 3 (moderate); 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
[2017-11-03] MEDS: ATORVASTATIN CALCIUM 80 MG TABLET PO SCH (21:59)
[2017-11-03] MEDS ORDERED: INSULIN GLARGINE,HUM.REC.ANLOG 300 UNIT/3 ML INSULN.PEN SUBCUT SCH (22:00)
[2017-11-03] MEDS: CLONIDINE HCL 0.2 MG TABLET PO SCH (22:00)
[2017-11-03] MEDS: PANTOPRAZOLE SODIUM 40 MG VIAL IV SCH (22:00)
[2017-11-03] MEDS: HYDROCODONE/ACETAMINOPHEN 5-325 MG TABLET PO PRN (22:01)
[2017-11-03] MEDS: METOPROLOL TARTRATE 100 MG TABLET PO SCH (22:02)
[2017-11-03 22:03] LABS: CREATINE KINASE MB 5.38 ng/mL (<4.55); TROPONIN I 0.082 ng/mL
[2017-11-04] MEDS: HYDROCODONE/ACETAMINOPHEN 5-325 MG TABLET PO PRN ×2 (03:47→08:19)
[2017-11-04] MEDS: HEPARIN SOD (PORCINE) 5,000 UNIT/ML 1 ML SYRINGE SUBCUT SCH ×3 (05:40→22:52)
[2017-11-04 06:40] LABS: ABSOLUTE BASOPHILS # (AUTO) 0.1 10^3/uL (0.0-0.2); ABSOLUTE LYMPHOCYTES (AUTO) 2.2 10^3/uL (0.5-4.7); ABSOLUTE MONOCYTES (AUTO) 1.4 10^3/uL (0.1-1.4); ABSOLUTE NEUT (AUTO) 11.6 10^3/uL (1.7-8.2); BASOPHILS % (AUTO) 0.3 % (0-2); EOSINOPHILS % (AUTO) 0.1 % (0-6); HEMATOCRIT 36.3 % (36.0-47.0); HEMOGLOBIN 12.1 g/dL (12.0-15.5); LYMPHOCYTES % (AUTO) 14.3 % (13-45); MEAN CORPUSCULAR HEMOGLOBIN 24.9 pg (27.0-33.4); MEAN CORPUSCULAR HGB CONC 33.3 g/dL (32.0-36.0); MEAN CORPUSCULAR VOLUME 75 fl (80-97); MONOCYTES % (AUTO) 9.1 % (3-13); PLATELET COUNT 274 10^3/uL (150-450); RED BLOOD COUNT 4.85 10^6/uL (3.72-5.28); RED CELL DISTRIBUTION WIDTH 14.5 % (11.5-14.0); SEGMENTED NEUTROPHILS % (AUTO) 76.2 % (42-78); TOTAL CELLS COUNTED % (AUTO) 100 %; WHITE BLOOD COUNT 15.3 10^3/uL (4.0-10.5)
[2017-11-04 07:17] LABS: ALANINE AMINOTRANSFERASE 16 U/L (9-52); ALBUMIN 3.6 g/dL (3.5-5.0); ALKALINE PHOSPHATASE 108 U/L (38-126); ANION GAP 11 (5-19); ASPARTATE AMINO TRANSFERASE 74 U/L (14-36); BILIRUBIN,DIRECT 0.2 mg/dL (0.0-0.4); BILIRUBIN,TOTAL 0.4 mg/dL (0.2-1.3); BLOOD UREA NITROGEN 40 mg/dL (7-20); CALCIUM 8.7 mg/dL (8.4-10.2); CARBON DIOXIDE 27 mmol/L (22-30); CHLORIDE 97 mmol/L (98-107); CHOLESTEROL 146.78 mg/dL (0-200); GLUCOSE 370 mg/dL (75-110); POTASSIUM 3.2 mmol/L (3.6-5.0); SODIUM 135.2 mmol/L (137-145); TOTAL PROTEIN 6.6 g/dL (6.3-8.2); TRIGLYCERIDES 143 mg/dL (<150)
[2017-11-04 07:28] LABS: DIRECT LDL 63 mg/dL (<100)
[2017-11-04] MEDS: INSULIN LISPRO 100 UNIT/ML 3 ML VIAL SUBCUT PRN ×2 (08:22→17:48)
[2017-11-04] MEDS: CLONIDINE HCL 0.2 MG TABLET PO SCH ×2 (09:18→22:49)
[2017-11-04] MEDS: METOPROLOL SUCCINATE 50 MG TAB.SR.24H PO SCH (09:20)
[2017-11-04] MEDS: VALSARTAN 160 MG TABLET PO SCH (09:22)
[2017-11-04] MEDS: METOPROLOL TARTRATE 100 MG TABLET PO SCH ×2 (09:22→22:48)
[2017-11-04] MEDS: AMLODIPINE BESYLATE 10 MG TABLET PO SCH (09:23)
[2017-11-04] MEDS: HYDROCHLOROTHIAZIDE 25 MG TABLET PO SCH (09:24)
[2017-11-04] MEDS: FUROSEMIDE 40 MG TABLET PO SCH (09:24)
[2017-11-04] MEDS: INSULIN GLARGINE,HUM.REC.ANLOG 300 UNIT/3 ML INSULN.PEN SUBCUT SCH ×2 (09:25→22:50)
[2017-11-04] MEDS: ONDANSETRON HCL 8 MG TABLET PO SCH ×2 (09:30→17:49)
[2017-11-04] MEDS ORDERED: POTASSIUM CHLORIDE 20 MEQ/15 ML UDCUP ONE (09:44)
[2017-11-04] MEDS ORDERED: ASPIRIN 81 MG TABLET, CHEWABLE PO SCH (10:00)
[2017-11-04] MEDS: HYDROCODONE/ACETAMINOPHEN 10-325 MG TABLET PO PRN ×2 (12:39→22:49)
[2017-11-04] MEDS: ASPIRIN 81 MG TABLET, ENT COATED PO SCH (12:40)
[2017-11-04] MEDS: ONDANSETRON HCL INJ/PF 4 MG/2 ML SDV IV PRN ×2 (14:07→18:34)
--- NOTE | 2017-11-04 16:22 | PDOC PROGRESS REPORT ---
Subjective Progress Note for:: 11/04/17 Subjective:: Patient seen by the bedside, she was admitted yesterday when she presented with epigastric pain associated with hypertensive emergency, she sustained acute kidney injury most likely due to ATN from blood pressure regulation. She complained of radiculopathy of the lumbar spine, the urine protein creatinine ratio is 13 consistent with nephrotic range proteinuria. Reason For Visit: HYPERTENSIVE EMERGENCY, CKD, STAGE 3, T2DM Physical Exam Vital Signs: Temp Pulse Resp BP Pulse Ox 97.7 F 66 8 L 115/63 92 11/04/17 14:00 11/04/17 07:41 11/04/17 14:50 11/04/17 14:50 11/04/17 14:50 Intake & Output 11/03/17 11/04/17 11/05/17 06:59 06:59 06:59 Intake Total 1380 Output Total 350 Balance 1030 Weight 90.5 kg General appearance: PRESENT: no acute distress, well-developed, well-nourished Head exam: PRESENT: atraumatic, normocephalic Eye exam: PRESENT: conjunctiva pink, EOMI, PERRLA Ear exam: PRESENT: normal external ear exam Mouth exam: PRESENT: moist, tongue midline Neck exam: PRESENT: full ROM Respiratory exam: PRESENT: clear to auscultation jeanette Cardiovascular exam: PRESENT: RRR, +S1, +S2 Pulses: PRESENT: normal dorsalis pedis pul, +2 pedal pulses bilateral Vascular exam: PRESENT: normal capillary refill GI/Abdominal exam: PRESENT: normal bowel sounds, soft Rectal exam: PRESENT: deferred Neurological exam: PRESENT: alert, awake, oriented to person, oriented to place , oriented to time, oriented to situation, CN II-XII grossly intact Psychiatric exam: PRESENT: appropriate affect, normal mood Skin exam: PRESENT: dry, intact, warm Results Laboratory Results: 11/04/17 06:25 11/04/17 06:25 11/04/17 11/04/17 06:25 06:25 WBC 15.3 H RBC 4.85 Hgb 12.1 Hct 36.3 MCV 75 L MCH 24.9 L MCHC 33.3 RDW 14.5 H Plt Count 274 Seg Neutrophils % 76.2 Lymphocytes % 14.3 Monocytes % 9.1 Eosinophils % 0.1 Basophils % 0.3 Absolute Neutrophils 11.6 H Absolute Lymphocytes 2.2 Absolute Monocytes 1.4 Absolute Eosinophils 0.0 Absolute Basophils 0.1 Sodium 135.2 L Potassium 3.2 L Chloride 97 L Carbon Dioxide 27 Anion Gap 11 BUN 40 H Creatinine 2.53 H Est GFR ( Amer) 23 L Est GFR (Non-Af Amer) 19 L Glucose 370 H Calcium 8.7 Total Bilirubin 0.4 AST 74 H ALT 16 Alkaline Phosphatase 108 Total Protein 6.6 Albumin 3.6 Triglycerides 143 Cholesterol 146.78 LDL Cholesterol Direct 63 VLDL Cholesterol 29.0 HDL Cholesterol 40 11/03/17 11/03/17 11/03/17 08:47 08:47 08:47 Creatine Kinase 75 CK-MB (CK-2) 3.48 Troponin I 0.063 NT-Pro-B Natriuret Pep 2220 H 11/03/17 11/03/17 11/03/17 15:30 15:30 21:24 Creatine Kinase 88 98 CK-MB (CK-2) 4.75 H Troponin I 0.093 NT-Pro-B Natriuret Pep 11/03/17 21:24 Creatine Kinase CK-MB (CK-2) 5.38 H Troponin I 0.082 NT-Pro-B Natriuret Pep Impressions: Abdomen Ultrasound 11/03/17 00:00 IMPRESSION: LIMITED STUDY. FATTY INFILTRATION OF THE LIVER. NO OTHER SIGNIFICANT FINDINGS. Chest X-Ray 11/03/17 03:41 IMPRESSION: 1. No acute pulmonary process identified. Abdomen/Pelvis CT 11/03/17 04:48 IMPRESSION: 1. No acute inflammatory or obstructive abnormality identified. This exam was performed according to our departmental dose-optimization program, which includes automated exposure control, adjustment of the mA and/or kV according to patient size and/or use of iterative reconstruction technique. Assessment & Plan - Diagnosis (1) Hypertensive emergency Is this a current diagnosis for this admission?: Yes (2) Epigastric pain Is this a current diagnosis for this admission?: Yes Plan: Consultation from GI for possible EGD (3) Type 2 diabetes mellitus Qualifiers: Diabetes mellitus complication status: with kidney complications Diabetes mellitus complication detail: with chronic kidney disease Diabetes mellitus senior living insulin use: with auto hauler use Chronic kidney disease stage: stage 3 (moderate) Qualified Code(s): E11.22 - Type 2 diabetes mellitus with diabetic chronic kidney disease; N18.3 - Chronic kidney disease, stage 3 ( moderate); N18.3 - Chronic kidney disease, stage 3 (moderate); Z79.4 - assisted (current) use of insulin; 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
[2017-11-04] MEDS: PREGABALIN 50 MG CAPSULE PO SCH (17:45)
[2017-11-04] MEDS: ATORVASTATIN CALCIUM 80 MG TABLET PO SCH (22:48)
[2017-11-04] MEDS: PANTOPRAZOLE SODIUM 40 MG VIAL IV SCH (22:50)
[2017-11-05 04:16] LABS: ABSOLUTE BASOPHILS # (AUTO) 0.1 10^3/uL (0.0-0.2); ABSOLUTE EOSINOPHILS # (AUTO) 0.1 10^3/uL (0.0-0.6); ABSOLUTE LYMPHOCYTES (AUTO) 3.3 10^3/uL (0.5-4.7); ABSOLUTE MONOCYTES (AUTO) 0.8 10^3/uL (0.1-1.4); BASOPHILS % (AUTO) 1.4 % (0-2); EOSINOPHILS % (AUTO) 1.2 % (0-6); HEMATOCRIT 34.5 % (36.0-47.0); HEMOGLOBIN 11.6 g/dL (12.0-15.5); MEAN CORPUSCULAR HEMOGLOBIN 25.2 pg (27.0-33.4); MEAN CORPUSCULAR HGB CONC 33.5 g/dL (32.0-36.0); MEAN CORPUSCULAR VOLUME 75 fl (80-97); MONOCYTES % (AUTO) 8.9 % (3-13); PLATELET COUNT 249 10^3/uL (150-450); RED CELL DISTRIBUTION WIDTH 14.8 % (11.5-14.0); SEGMENTED NEUTROPHILS % (AUTO) 53.5 % (42-78); TOTAL CELLS COUNTED % (AUTO) 100 %; WHITE BLOOD COUNT 9.4 10^3/uL (4.0-10.5)
[2017-11-05 04:30] LABS: ALANINE AMINOTRANSFERASE 28 U/L (9-52); ALKALINE PHOSPHATASE 90 U/L (38-126); ANION GAP 10 (5-19); ASPARTATE AMINO TRANSFERASE 24 U/L (14-36); BILIRUBIN,DIRECT 0.3 mg/dL (0.0-0.4); BILIRUBIN,TOTAL 0.3 mg/dL (0.2-1.3); BLOOD UREA NITROGEN 47 mg/dL (7-20); CALCIUM 8.9 mg/dL (8.4-10.2); CARBON DIOXIDE 25 mmol/L (22-30); CHLORIDE 101 mmol/L (98-107); GLUCOSE 141 mg/dL (75-110); POTASSIUM 3.5 mmol/L (3.6-5.0); TOTAL PROTEIN 5.9 g/dL (6.3-8.2)
[2017-11-05] MEDS: PREGABALIN 50 MG CAPSULE PO SCH ×2 (05:25→18:20)
[2017-11-05] MEDS: HEPARIN SOD (PORCINE) 5,000 UNIT/ML 1 ML SYRINGE SUBCUT SCH ×3 (05:25→22:58)
[2017-11-05] MEDS: HYDROCODONE/ACETAMINOPHEN 10-325 MG TABLET PO PRN ×2 (05:25→23:03)
[2017-11-05] MEDS: ONDANSETRON HCL INJ/PF 4 MG/2 ML SDV IV PRN (06:17)
[2017-11-05] MEDS: METOPROLOL SUCCINATE 50 MG TAB.SR.24H PO SCH (11:39)
[2017-11-05] MEDS: ONDANSETRON HCL 8 MG TABLET PO SCH ×2 (11:51→18:20)
[2017-11-05] MEDS: VALSARTAN 160 MG TABLET PO SCH (11:52)
[2017-11-05] MEDS: FUROSEMIDE 40 MG TABLET PO SCH (11:53)
[2017-11-05] MEDS: AMLODIPINE BESYLATE 10 MG TABLET PO SCH (11:53)
[2017-11-05] MEDS: ASPIRIN 81 MG TABLET, ENT COATED PO SCH (11:53)
[2017-11-05] MEDS: ERGOCALCIFEROL (VITAMIN D2) 50000 UNIT (1.25 MG) CAPSULE PO SCH (11:53)
[2017-11-05] MEDS: CLONIDINE HCL 0.2 MG TABLET PO SCH ×2 (11:54→22:14)
[2017-11-05] MEDS: HYDROCHLOROTHIAZIDE 25 MG TABLET PO SCH (11:54)
[2017-11-05] MEDS: METOPROLOL TARTRATE 100 MG TABLET PO SCH ×2 (11:59→22:15)
[2017-11-05] MEDS: INSULIN GLARGINE,HUM.REC.ANLOG 300 UNIT/3 ML INSULN.PEN SUBCUT SCH ×2 (13:33→22:59)
--- NOTE | 2017-11-05 21:02 | PDOC PROGRESS REPORT ---
Subjective Progress Note for:: 11/05/17 Subjective:: She was seen by the bedside, she sustained acute kidney injury most likely due to ATN from blood pressure fluctuations Reason For Visit: HYPERTENSIVE EMERGENCY, CKD, STAGE 3, T2DM Physical Exam Vital Signs: Temp Pulse Resp BP Pulse Ox 97.6 F 59 L 16 129/61 H 98 11/05/17 20:18 11/05/17 20:18 11/05/17 20:18 11/05/17 20:18 11/05/17 20:18 Intake & Output 11/04/17 11/05/17 11/06/17 06:59 06:59 06:59 Intake Total 1380 20 10 Output Total 350 0 650 Balance 1030 20 -640 Weight 90.5 kg 90.8 kg General appearance: PRESENT: no acute distress Eye exam: PRESENT: PERRLA Respiratory exam: PRESENT: clear to auscultation jeanette Cardiovascular exam: PRESENT: +S1, +S2 GI/Abdominal exam: PRESENT: soft Neurological exam: PRESENT: alert Results Laboratory Results: 11/05/17 04:01 11/05/17 04:01 11/05/17 11/05/17 04:01 04:01 WBC 9.4 RBC 4.60 Hgb 11.6 L Hct 34.5 L MCV 75 L MCH 25.2 L MCHC 33.5 RDW 14.8 H Plt Count 249 Seg Neutrophils % 53.5 Lymphocytes % 35.0 Monocytes % 8.9 Eosinophils % 1.2 Basophils % 1.4 Absolute Neutrophils 5.0 Absolute Lymphocytes 3.3 Absolute Monocytes 0.8 Absolute Eosinophils 0.1 Absolute Basophils 0.1 Sodium 136.0 L Potassium 3.5 L Chloride 101 Carbon Dioxide 25 Anion Gap 10 BUN 47 H Creatinine 3.48 H Est GFR ( Amer) 16 L Est GFR (Non-Af Amer) 13 L Glucose 141 H Calcium 8.9 Total Bilirubin 0.3 AST 24 ALT 28 Alkaline Phosphatase 90 Total Protein 5.9 L Albumin 3.0 L 11/03/17 11/03/17 11/03/17 08:47 08:47 08:47 Creatine Kinase 75 CK-MB (CK-2) 3.48 Troponin I 0.063 NT-Pro-B Natriuret Pep 2220 H 11/03/17 11/03/17 11/03/17 15:30 15:30 21:24 Creatine Kinase 88 98 CK-MB (CK-2) 4.75 H Troponin I 0.093 NT-Pro-B Natriuret Pep 11/03/17 21:24 Creatine Kinase CK-MB (CK-2) 5.38 H Troponin I 0.082 NT-Pro-B Natriuret Pep Impressions: Abdomen Ultrasound 11/03/17 00:00 IMPRESSION: LIMITED STUDY. FATTY INFILTRATION OF THE LIVER. NO OTHER SIGNIFICANT FINDINGS. Chest X-Ray 11/03/17 03:41 IMPRESSION: 1. No acute pulmonary process identified. Abdomen/Pelvis CT 11/03/17 04:48 IMPRESSION: 1. No acute inflammatory or obstructive abnormality identified. This exam was performed according to our departmental dose-optimization program, which includes automated exposure control, adjustment of the mA and/or kV according to patient size and/or use of iterative reconstruction technique. Assessment & Plan - Diagnosis (1) Hypertensive emergency Is this a current diagnosis for this admission?: Yes (2) Epigastric pain Is this a current diagnosis for this admission?: Yes (3) Type 2 diabetes mellitus Qualifiers: Diabetes mellitus complication status: with kidney complications Diabetes mellitus complication detail: with chronic kidney disease Diabetes mellitus half-way insulin use: with intermodal customer service use Chronic kidney disease stage: stage 3 (moderate) Qualified Code(s): E11.22 - Type 2 diabetes mellitus with diabetic chronic kidney disease; N18.3 - Chronic kidney disease, stage 3 ( moderate); N18.3 - Chronic kidney disease, stage 3 (moderate); Z79.4 - oil heaterman (current) use of insulin; Z79.4 - oil heaterman (current) use of insulin; Z79.4 - [facility] (current) use of insulin; Z79.4 - oil heaterman (current) use of insulin Is this a current diagnosis for this admission?: Yes (4) Nephrotic range proteinuria Is this a current diagnosis for this admission?: Yes (5) Lumbar radiculopathy Is this a current diagnosis for this admission?: Yes (6) Acute kidney injury Is this a current diagnosis for this admission?: Yes Plan: Consultation is obtained from nephrology, the acute kidney injury is most likely due to fluctuations in the blood pressure regulation
--- NOTE | 2017-11-05 21:33 | PDOC CONSULTATION ---
Consultation Consult Date: 11/05/17 Attending physician:: QUINCY ALEJO Consult reason:: I was asked to see this patient because of worsening kidney function. History of Present Illness Admission Date/PCP: 11/03/17 06:45 QUINCY ALEJO MD History of Present Illness: YG METZ is a 71 year old female, she came to the emergency room for evaluation of epigastric pain, nausea ,. She was evaluated in the emergency room vomiting a CAT scan of the abdomen and pelvis with no contrast was ordered it was negative, ultrasound of the upper abdomen was negative. The blood pressure was severely elevated in the emergency hypertensive range with systolic blood pressure as high as 200+. She had a history of diabetes mellitus complicated with retinopathy, nephropathy, with nephrotic range proteinuria. Patient was admitted in the ICU and was started on Cardene drip. After a while the patient's blood pressure started to go down and for the last 24 hours the blood pressure has been running anywhere between 1-1 to 130/70 to 90s. The patient came in she has a BUN of 25 and creatinine of 1.97 with estimated GFR of 25. Previously on August 2015 she has a BUN of 29, creatinine of 1.59 with estimated GFR of 32. Today her BUN bruit right heriberto to 47, creatinine went up to 3.48 and estimated GFR of 13. Patient was not making much urine so a straight catheterization was ordered however before that happened she went to make about 600 mL of urine prior to transfer from ICU to here in the floor. Patient has nephrotic range proteinuria with urine protein to creatinine ratio of 13.6. Urine culture was also positive for enterococcus faecalis. Currently the patient said her abdominal pain is almost resolved but she still gets nauseated upon getting up. She is not having vomiting for as long as she is being given IV Zofran. She denies any chest pains, shortness of breath, cough, colds nor fevers. She otherwise looks clinically fine. She is scheduled for EGD tomorrow. Incidentally patient said she has not had a bowel movement since she was admitted. Past Medical History Cardiac Medical History: Reports: Coronary Artery Disease, Hyperlipidemia, Hypertension-primary - Diagnosis at least about 28 years ago. Neurological Medical History: Denies: Seizures Endocrine Medical History: Reports: Diabetes Mellitus Type 2 - Diagnosed about 12 years ago, Obesity Complications of Diabetes: Reports: Autonomic Neuropathy, Nephropathy, Retinopathy Renal/ Medical History: Reports: Chronic Kidney Disease Stage III, Proteinuria , Other - Nephrotic range proteinuria Malignancy Medical History: Reports: Colorectal Cancer - Status post colon resection. Musculoskeltal Medical History: Reports: Arthritis, Other - Chronic back pain due to lumbar stenosis with leg pain Past Surgical History Past Surgical History: Reports: Cardiac Catheterization - stents x 2, Hysterectomy, Tubal Ligation, Other - Colon resection Social History Information Source: Patient Smoking Status: Never Smoker Frequency of Alcohol Use: None Hx Recreational Drug Use: No Drugs: None Hx Prescription Drug Abuse: No - Advance Directive Resuscitation Status: Full Code Family History Family History: DM - Parents, Other - Atrial fibrillation and her mother Parental Family History Reviewed: Yes Children Family History Reviewed: Unknown Sibling(s) Family History Reviewed.: Unknown Medication/Allergy Home Medications: Aspirin [Ecotrin 81 mg EC Tablet] 81 mg PO DAILY 11/03/17 Atorvastatin Calcium [Lipitor 80 mg Tablet] 80 mg PO QHS 11/03/17 Clonidine HCl [Catapres 0.2 mg Tablet] 0.3 mg PO Q12 11/03/17 Furosemide [Lasix 40 mg Tablet] 40 mg PO DAILY 11/03/17 Metoprolol Tartrate [Lopressor 100 mg Tablet] 100 mg PO Q12 11/03/17 Valsartan/Hydrochlorothiazide [Valsartan-Hctz 320-25 mg Tab] 1 tab PO DAILY 07/11 Allergies/Adverse Reactions: codeine [Codeine] Allergy (Mild, Verified 09/07/17 12:47) meperidine HCl [From Demerol] Allergy (Mild, Verified 09/07/17 12:47) morphine Allergy (Verified 09/07/17 12:47) Review of Systems All systems: reviewed and no additional remarkable complaints except as stated Review of Systems: Constitutional: ABSENT: chills, fatigue, fever(s), headache(s), weight gain, weight loss Eyes: ABSENT: visual disturbances Ears: ABSENT: hearing changes Cardiovascular: ABSENT: chest pain, dyspnea on exertion, edema, orthropnea, palpitations Respiratory: ABSENT: cough, dyspnea, hemoptysis Gastrointestinal: ABSENT: Diarrhea, hematemesis, hematochezia; admits epigastric abdominal pain, nausea, vomiting, and constipation Genitourinary: ABSENT: dysuria, hematuria Musculoskeletal: ABSENT: joint swelling Integumentary: ABSENT: rash, wounds Neurological: ABSENT: abnormal gait, abnormal speech, confusion, dizziness, focal weakness, numbness, syncope Psychiatric: ABSENT: anxiety, depression Endocrine: ABSENT: cold intolerance, heat intolerance, polydipsia, polyuria Hematologic/Lymphatic: ABSENT: easy bleeding, easy bruising, lymphadenopathy Physical Exam Vital Signs: Temp Pulse Resp BP Pulse Ox 97.6 F 59 L 16 129/61 H 98 11/05/17 20:18 11/05/17 20:18 11/05/17 20:18 11/05/17 20:18 11/05/17 20:18 Intake & Output 11/04/17 11/05/17 11/06/17 06:59 06:59 06:59 Intake Total 1380 20 10 Output Total 350 0 650 Balance 1030 20 -640 Weight 90.5 kg 90.8 kg Exam: General appearance: no acute distress, cooperative, well-developed, well- nourished Head exam: PRESENT: atraumatic, normocephalic Eye exam: PRESENT: Conjunctiva C[place], EOMI, PERRLA. ABSENT: conjunctival injection, scleral icterus Mouth exam: PRESENT: moist, neck supple, tongue midline Neck exam: PRESENT: full ROM. ABSENT: carotid bruit, JVD, lymphadenopathy, thyromegaly Respiratory exam: PRESENT: clear to auscultation bilaterally. ABSENT: rales, rhonchi, stridor, wheezes Cardiovascular exam: PRESENT: RRR, +S1, +S2. ABSENT: systolic murmur Pulses: PRESENT: normal radial pulses, normal dorsalis pedis pulses GI/Abdominal exam: PRESENT: normal bowel sounds, soft. ABSENT: guarding, mass, tenderness Rectal exam: deferred Extremities exam: PRESENT: full ROM. ABSENT: calf tenderness, pedal edema Musculoskeletal: PRESENT: full ROM. ABSENT: deformity Neurological exam: PRESENT: alert, Awake, Oriented to person, Oriented to place , Oriented to time, reflexes normal, CN II-XII grossly intact. ABSENT: motor sensory deficit Psychiatric exam: PRESENT: appropriate affect, normal mood. ABSENT: homicidal ideation, suicidal ideation Skin exam: PRESENT: intact, dry, warm. ABSENT: rash Results Laboratory Results: 11/05/17 04:01 11/05/17 04:01 11/05/17 11/05/17 04:01 04:01 WBC 9.4 RBC 4.60 Hgb 11.6 L Hct 34.5 L MCV 75 L MCH 25.2 L MCHC 33.5 RDW 14.8 H Plt Count 249 Seg Neutrophils % 53.5 Lymphocytes % 35.0 Monocytes % 8.9 Eosinophils % 1.2 Basophils % 1.4 Absolute Neutrophils 5.0 Absolute Lymphocytes 3.3 Absolute Monocytes 0.8 Absolute Eosinophils 0.1 Absolute Basophils 0.1 Sodium 136.0 L Potassium 3.5 L Chloride 101 Carbon Dioxide 25 Anion Gap 10 BUN 47 H Creatinine 3.48 H Est GFR ( Amer) 16 L Est GFR (Non-Af Amer) 13 L Glucose 141 H Calcium 8.9 Total Bilirubin 0.3 AST 24 ALT 28 Alkaline Phosphatase 90 Total Protein 5.9 L Albumin 3.0 L 11/03/17 11/03/17 11/03/17 08:47 08:47 08:47 Creatine Kinase 75 CK-MB (CK-2) 3.48 Troponin I 0.063 NT-Pro-B Natriuret Pep 2220 H 11/03/17 11/03/17 11/03/17 15:30 15:30 21:24 Creatine Kinase 88 98 CK-MB (CK-2) 4.75 H Troponin I 0.093 NT-Pro-B Natriuret Pep 11/03/17 21:24 Creatine Kinase CK-MB (CK-2) 5.38 H Troponin I 0.082 NT-Pro-B Natriuret Pep 09/22/16 09/26/16 12/11/16 03:51 06:58 12:30 BUN 33 H 34 H 24 H Creatinine 2.22 H 1.52 H 1.31 H Est GFR ( Amer) 26 L 41 L 48 L Est GFR (Non-Af Amer) 09/07/17 14:57 BUN 29 H Creatinine 1.59 H Est GFR ( Amer) 39 L Est GFR (Non-Af Amer) 32 L Impressions: Abdomen Ultrasound 11/03/17 00:00 IMPRESSION: LIMITED STUDY. FATTY INFILTRATION OF THE LIVER. NO OTHER SIGNIFICANT FINDINGS. Chest X-Ray 11/03/17 03:41 IMPRESSION: 1. No acute pulmonary process identified. Abdomen/Pelvis CT 11/03/17 04:48 IMPRESSION: 1. No acute inflammatory or obstructive abnormality identified. This exam was performed according to our departmental dose-optimization program, which includes automated exposure control, adjustment of the mA and/or kV according to patient size and/or use of iterative reconstruction technique. Assessment & Plan - Diagnosis (1) Acute kidney injury superimposed on chronic kidney disease Is this a current diagnosis for this admission?: Yes Plan: Is secondary to acute hemodynamic factors with sudden decrease of 5 blood pressure causing acute tubular necrosis. Patient had couple of episodes in the past with this same situation. Usually versus to patient's kidney function so hopefully this will happen again. At this time the patient does not need any renal replacement therapy. Continue to monitor kidney function, electrolytes and urine output. Avoid further nephrotoxic agents. We will need to allow a relative permissive hypertension to allow the kidney to recover with good perfusion pressure. 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 (2) Acute renal tubular necrosis Is this a current diagnosis for this admission?: Yes (3) Nephrotic range proteinuria Is this a current diagnosis for this admission?: Yes (4) Hypertension Qualifiers: Hypertension type: essential hypertension Qualified Code(s): I10 - Essential (primary) hypertension Is this a current diagnosis for this admission?: Yes Plan: Currently relatively low compared to the patient's baseline. I will hold the patient valsartan and hydrochlorothiazide in view of the patient's acute kidney injury and relative hypotension. I will place parameters on amlodipine and metoprolol to hold it if systolic blood pressures less than 130. Continue clonidine. (5) Secondary hyperparathyroidism (of renal origin) Is this a current diagnosis for this admission?: Yes Plan: Start calcitriol 0.25 mcg 3 times a week. (6) Hypokalemia Is this a current diagnosis for this admission?: Yes Plan: Replace as needed (7) Urinary tract infection due to Enterococcus Is this a current diagnosis for this admission?: Yes Plan: Defer to Dr. Alejo. (8) Abdominal pain Qualifiers: Abdominal location: epigastric Qualified Code(s): R10.13 - Epigastric pain Is this a current diagnosis for this admission?: Yes Plan: Improved. (9) Nausea and vomiting Qualifiers: Vomiting type: unspecified Vomiting Intractability: non-intractable Qualified Code(s): R11.2 - Nausea with vomiting, unspecified Is this a current diagnosis for this admission?: Yes Plan: Improved. (10) Type 2 diabetes mellitus Qualifiers: Diabetes mellitus complication status: with kidney complications Diabetes mellitus complication detail: with chronic kidney disease Diabetes mellitus fdc insulin use: with superintendent container terminal use Chronic kidney disease stage: stage 3 (moderate) Qualified Code(s): E11.22 - Type 2 diabetes mellitus with diabetic chronic kidney disease; N18.3 - Chronic kidney disease, stage 3 ( moderate); N18.3 - Chronic kidney disease, stage 3 (moderate); Z79.4 - [facility] (current) use of insulin; Z79.4 - superintendent container terminal (current) use of insulin; Z79.4 - superintendent container terminal (current) use of insulin; Z79.4 - superintendent container terminal (current) use of insulin Is this a current diagnosis for this admission?: Yes (11) Lumbar radiculopathy Is this a current diagnosis for this admission?: Yes - Notes Notes: Thank you very much for this consultation. I will follow the patient with you. - Time Time Spent: Greater than 70 Minutes
[2017-11-05] MEDS ORDERED: POTASSIUM CHLORIDE 10 MEQ TABLET.SA PO ONE (22:00)
[2017-11-05] MEDS: PANTOPRAZOLE SODIUM 40 MG VIAL IV SCH (22:58)
[2017-11-05] MEDS: INSULIN LISPRO 100 UNIT/ML 3 ML VIAL SUBCUT PRN (22:59)
[2017-11-05] MEDS: ATORVASTATIN CALCIUM 80 MG TABLET PO SCH (22:59)
[2017-11-06 04:56] LABS: ABSOLUTE BASOPHILS # (AUTO) 0.1 10^3/uL (0.0-0.2); ABSOLUTE EOSINOPHILS # (AUTO) 0.2 10^3/uL (0.0-0.6); ABSOLUTE LYMPHOCYTES (AUTO) 2.7 10^3/uL (0.5-4.7); ABSOLUTE NEUT (AUTO) 5.4 10^3/uL (1.7-8.2); BASOPHILS % (AUTO) 0.6 % (0-2); EOSINOPHILS % (AUTO) 2.2 % (0-6); HEMOGLOBIN 11.8 g/dL (12.0-15.5); LYMPHOCYTES % (AUTO) 28.6 % (13-45); MEAN CORPUSCULAR HEMOGLOBIN 25.2 pg (27.0-33.4); MEAN CORPUSCULAR HGB CONC 33.8 g/dL (32.0-36.0); MEAN CORPUSCULAR VOLUME 75 fl (80-97); MONOCYTES % (AUTO) 10.9 % (3-13); PLATELET COUNT 232 10^3/uL (150-450); RED BLOOD COUNT 4.69 10^6/uL (3.72-5.28); RED CELL DISTRIBUTION WIDTH 14.6 % (11.5-14.0); SEGMENTED NEUTROPHILS % (AUTO) 57.7 % (42-78); TOTAL CELLS COUNTED % (AUTO) 100 %; WHITE BLOOD COUNT 9.4 10^3/uL (4.0-10.5)
[2017-11-06 05:08] LABS: ALANINE AMINOTRANSFERASE 27 U/L (9-52); ALKALINE PHOSPHATASE 93 U/L (38-126); ANION GAP 9 (5-19); ASPARTATE AMINO TRANSFERASE 23 U/L (14-36); BILIRUBIN,DIRECT 0.3 mg/dL (0.0-0.4); BILIRUBIN,TOTAL 0.3 mg/dL (0.2-1.3); BLOOD UREA NITROGEN 53 mg/dL (7-20); CALCIUM 8.4 mg/dL (8.4-10.2); CARBON DIOXIDE 27 mmol/L (22-30); CHLORIDE 99 mmol/L (98-107); GLUCOSE 202 mg/dL (75-110); POTASSIUM 3.2 mmol/L (3.6-5.0); SODIUM 134.6 mmol/L (137-145); TOTAL PROTEIN 6.1 g/dL (6.3-8.2)
[2017-11-06] MEDS: HEPARIN SOD (PORCINE) 5,000 UNIT/ML 1 ML SYRINGE SUBCUT SCH ×3 (06:19→21:52)
[2017-11-06] MEDS: PREGABALIN 50 MG CAPSULE PO SCH ×2 (06:19→18:45)
[2017-11-06] MEDS: HYDROCHLOROTHIAZIDE 25 MG TABLET PO SCH (09:11)
[2017-11-06] MEDS: VALSARTAN 160 MG TABLET PO SCH (09:11)
[2017-11-06] MEDS: AMLODIPINE BESYLATE 10 MG TABLET PO SCH (09:12)
[2017-11-06] MEDS: METOPROLOL TARTRATE 100 MG TABLET PO SCH ×2 (09:12→21:11)
[2017-11-06] MEDS: CALCITRIOL 0.25 MCG CAPSULE PO SCH (09:13)
[2017-11-06] MEDS: ONDANSETRON HCL 8 MG TABLET PO SCH ×2 (09:13→18:46)
[2017-11-06] MEDS: INSULIN LISPRO 100 UNIT/ML 3 ML VIAL SUBCUT PRN ×3 (09:15→21:52)
[2017-11-06] MEDS: CLONIDINE HCL 0.2 MG TABLET PO SCH ×2 (09:15→21:11)
[2017-11-06] MEDS: FUROSEMIDE 40 MG TABLET PO SCH (09:15)
[2017-11-06] MEDS: INSULIN GLARGINE,HUM.REC.ANLOG 300 UNIT/3 ML INSULN.PEN SUBCUT SCH ×2 (09:15→21:52)
[2017-11-06] MEDS: ASPIRIN 81 MG TABLET, ENT COATED PO SCH (12:44)
--- NOTE | 2017-11-06 16:12 | PDOC PROGRESS REPORT ---
Subjective Progress Note for:: 11/06/17 Subjective:: Patient is stable however there is still some fluctuations of her blood pressure , the most recent one was systolic blood pressure of 120. I thought I held her valsartan and hydrochlorothiazide but it did not seem to go to so it there were given this morning. She is still awaiting her EGD today and has been n.p.o. since noon. She made 200 mL of urine this morning. Otherwise she complained of some pain from her hip down to her thigh and leg but no other complaints. Reason For Visit: AK I, CKD, STAGE 3, T2DM Physical Exam Vital Signs: Temp Pulse Resp BP Pulse Ox 97.7 F 61 16 120/65 98 11/06/17 12:04 11/06/17 12:04 11/06/17 12:04 11/06/17 12:04 11/06/17 12:04 Intake & Output 11/05/17 11/06/17 11/07/17 06:59 06:59 06:59 Intake Total 20 25 Output Total 0 850 Balance 20 -825 Weight 90.8 kg 90.3 kg Exam: General appearance: PRESENT: no acute distress, cooperative, well-developed, well-nourished Head exam: PRESENT: atraumatic, normocephalic Eye exam: PRESENT: conjunctiva pink, PERRLA. ABSENT: scleral icterus Neck exam: ABSENT: JVD Respiratory exam: PRESENT: Normal breath sounds. ABSENT: crackles, rales, rhonchi, unlabored, wheezes Cardiovascular exam: PRESENT: Regular rate rhythm -+S1, +S2. ABSENT: diastolic murmur, systolic murmur GI/Abdominal exam: PRESENT: normal bowel sounds, soft. ABSENT: guarding, mass, tenderness Extremities exam: Minimal and trace bilateral lower extremity edema Neurological exam: PRESENT: alert, awake, oriented to person, place and time. Skin exam: PRESENT: dry, warm, Results Laboratory Results: 11/06/17 04:05 11/06/17 04:05 11/06/17 11/06/17 04:05 04:05 WBC 9.4 RBC 4.69 Hgb 11.8 L Hct 35.0 L MCV 75 L MCH 25.2 L MCHC 33.8 RDW 14.6 H Plt Count 232 Seg Neutrophils % 57.7 Lymphocytes % 28.6 Monocytes % 10.9 Eosinophils % 2.2 Basophils % 0.6 Absolute Neutrophils 5.4 Absolute Lymphocytes 2.7 Absolute Monocytes 1.0 Absolute Eosinophils 0.2 Absolute Basophils 0.1 Sodium 134.6 L Potassium 3.2 L Chloride 99 Carbon Dioxide 27 Anion Gap 9 BUN 53 H Creatinine 3.90 H Est GFR ( Amer) 14 L Est GFR (Non-Af Amer) 11 L Glucose 202 H Calcium 8.4 Total Bilirubin 0.3 AST 23 ALT 27 Alkaline Phosphatase 93 Total Protein 6.1 L Albumin 3.0 L 11/03/17 11/03/17 11/03/17 08:47 08:47 08:47 Creatine Kinase 75 CK-MB (CK-2) 3.48 Troponin I 0.063 NT-Pro-B Natriuret Pep 2220 H 11/03/17 11/03/17 11/03/17 15:30 15:30 21:24 Creatine Kinase 88 98 CK-MB (CK-2) 4.75 H Troponin I 0.093 NT-Pro-B Natriuret Pep 11/03/17 21:24 Creatine Kinase CK-MB (CK-2) 5.38 H Troponin I 0.082 NT-Pro-B Natriuret Pep Impressions: Abdomen Ultrasound 11/03/17 00:00 IMPRESSION: LIMITED STUDY. FATTY INFILTRATION OF THE LIVER. NO OTHER SIGNIFICANT FINDINGS. Chest X-Ray 11/03/17 03:41 IMPRESSION: 1. No acute pulmonary process identified. Abdomen/Pelvis CT 11/03/17 04:48 IMPRESSION: 1. No acute inflammatory or obstructive abnormality identified. This exam was performed according to our departmental dose-optimization program, which includes automated exposure control, adjustment of the mA and/or kV according to patient size and/or use of iterative reconstruction technique. Assessment & Plan - Diagnosis (1) Acute kidney injury superimposed on chronic kidney disease Is this a current diagnosis for this admission?: Yes Plan: Is secondary to acute hemodynamic factors with sudden decrease of blood pressure causing acute tubular necrosis. Patient had couple of episodes in the past with this same situation. Usually patient's kidney function improved during previous episodes so hopefully this will happen again. At this time the patient does not need any renal replacement therapy. Continue to monitor kidney function, electrolytes and urine output. Avoid further nephrotoxic agents. We will need to allow a relative permissive hypertension to allow the kidney to recover with good perfusion pressure. 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 Patient is making minimal urine output but she is also n.p.o. for EGD today. Her kidney function is slightly worse today. She does not have any uremic symptoms. If the patient's kidney function continues to get worse before it gets better she might need acute renal replacement therapy. I discussed this with the patient and her at bedside and they both agreed that if it is necessary they would agree to do dialysis. So for now, continue to monitor her kidney function every day to determine if she is going to need it are not in the next few days. (2) Acute renal tubular necrosis Is this a current diagnosis for this admission?: Yes (3) Nephrotic range proteinuria Is this a current diagnosis for this admission?: Yes (4) Hypertension Qualifiers: Hypertension type: essential hypertension Qualified Code(s): I10 - Essential (primary) hypertension Is this a current diagnosis for this admission?: Yes Plan: Currently relatively low compared to the patient's baseline. I will hold the patient valsartan and hydrochlorothiazide in view of the patient's acute kidney injury and relative hypotension. I will place parameters on amlodipine and metoprolol to hold it if systolic blood pressures less than 130. Continue clonidine. (5) Secondary hyperparathyroidism (of renal origin) Is this a current diagnosis for this admission?: Yes Plan: Start calcitriol 0.25 mcg 3 times a week. (6) Hypokalemia Is this a current diagnosis for this admission?: Yes Plan: Replace as needed (7) Urinary tract infection due to Enterococcus Is this a current diagnosis for this admission?: Yes Plan: Start Levaquin IV. (8) Hyponatremia Is this a current diagnosis for this admission?: Yes (9) Abdominal pain Qualifiers: Abdominal location: epigastric Qualified Code(s): R10.13 - Epigastric pain Is this a current diagnosis for this admission?: Yes Plan: Improved. (10) Nausea and vomiting Qualifiers: Vomiting type: unspecified Vomiting Intractability: non-intractable Qualified Code(s): R11.2 - Nausea with vomiting, unspecified Is this a current diagnosis for this admission?: Yes Plan: Improved. (11) Type 2 diabetes mellitus Qualifiers: Diabetes mellitus complication status: with kidney complications Diabetes mellitus complication detail: with chronic kidney disease Diabetes mellitus fdc insulin use: with fdc use Chronic kidney disease stage: stage 3 (moderate) Qualified Code(s): E11.22 - Type 2 diabetes mellitus with diabetic chronic kidney disease; N18.3 - Chronic kidney disease, stage 3 ( moderate); N18.3 - Chronic kidney disease, stage 3 (moderate); Z79.4 - watermaster (current) use of insulin; Z79.4 - watermaster (current) use of insulin; Z79.4 - watermaster (current) use of insulin; Z79.4 - intermediate (current) use of insulin Is this a current diagnosis for this admission?: Yes (12) Lumbar radiculopathy Is this a current diagnosis for this admission?: Yes - Time Time with patient: 15-25 minutes
[2017-11-06] MEDS ORDERED: NALOXONE HCL INJ/PF 0.4 MG/1 ML SDV ONE (16:22)
[2017-11-06] MEDS ORDERED: FLUMAZENIL INJ 0.5 MG/5 ML VIAL ONE (16:23)
[2017-11-06] MEDS ORDERED: GLUCAGON,HUMAN RECOMB 1 MG INJ ONE (16:23)
[2017-11-06] MEDS ORDERED: EPINEPHRINE INJ 1 MG/10 ML DISP.SYRIN ONE (16:23)
[2017-11-06] MEDS ORDERED: MIDAZOLAM 2 MG/2 ML INJ ONE (16:23)
[2017-11-06] MEDS ORDERED: FENTANYL CITRATE INJ/PF 100 MCG/2 ML AMPUL ONE (16:23)
[2017-11-06] MEDS ORDERED: ONDANSETRON HCL INJ/PF 4 MG/2 ML SDV ONE (16:24)
[2017-11-06] MEDS ORDERED: POTASSI CL 20 MEQ/50 ML RIDER 20 MEQ/50 ML RTUPB IV SCH (17:00)
--- NOTE | 2017-11-06 17:28 | PDOC CONSULTATION ---
Consultation Consult Date: 11/05/17 History of Present Illness Admission Date/PCP: 11/03/17 06:45 QUINCY ALEJO MD History of Present Illness: This is a 71-year-old patient was admitted to the emergency room with epigastric pain and nausea on 11/03/2017. She had severely elevated blood pressure and was admitted to ICU for same. On admission on abdominal ultrasound and CAT scan were unremarkable except for fatty liver. Her lipase was normal but her alkaline phosphatase was elevated at 149. Her creatinine was 1.97 on admission with a glucose of 350. Currently she only has minimal epigastric pain and has not vomited. She had an EGD about a year ago that showed grade a esophagitis. Past Medical History Cardiac Medical History: Reports: Coronary Artery Disease, Hyperlipidema, Hypertension Neurological Medical History: Denies: Seizures Endocrine Medical History: Reports: Diabetes Mellitus Type 1, Diabetes Mellitus Type 2 - Diagnosed about 12 years ago, Obesity Renal/ Medical History: Reports: Chronic Kidney Disease, Other - Nephrotic range proteinuria Malignancy Medical History: Reports: Colorectal Cancer - Status post colon resection. Musculoskeltal Medical History: Reports: Arthritis, Other - Chronic back pain due to lumbar stenosis with leg pain Psychiatric Medical History: Denies: Depression Past Surgical History Past Surgical History: Reports: Cardiac Catheterization - stents x 2, Tubal Ligation, Other - Colon resection Denies: Hysterectomy Social History Smoking Status: Never Smoker Frequency of Alcohol Use: None Hx Recreational Drug Use: No Drugs: None Hx Prescription Drug Abuse: No - Advance Directive Resuscitation Status: Full Code Family History Family History: Reviewed & Not Pertinent, CAD Parental Family History Reviewed: No Children Family History Reviewed: NA Sibling(s) Family History Reviewed.: NA Medication/Allergy Home Medications: Aspirin [Ecotrin 81 mg EC Tablet] 81 mg PO DAILY 11/03/17 Atorvastatin Calcium [Lipitor 80 mg Tablet] 80 mg PO QHS 11/03/17 Clonidine HCl [Catapres 0.2 mg Tablet] 0.3 mg PO Q12 11/03/17 Furosemide [Lasix 40 mg Tablet] 40 mg PO DAILY 11/03/17 Metoprolol Tartrate [Lopressor 100 mg Tablet] 100 mg PO Q12 11/03/17 Valsartan/Hydrochlorothiazide [Valsartan-Hctz 320-25 mg Tab] 1 tab PO DAILY 07/11 Allergies/Adverse Reactions: codeine [Codeine] Allergy (Mild, Verified 09/07/17 12:47) meperidine HCl [From Demerol] Allergy (Mild, Verified 09/07/17 12:47) morphine Allergy (Verified 09/07/17 12:47) Review of Systems All systems: reviewed and no additional remarkable complaints except as stated Physical Exam Vital Signs: Temp Pulse Resp BP Pulse Ox 98.0 F 61 10 L 151/71 H 97 11/06/17 16:04 11/06/17 17:20 11/06/17 17:20 11/06/17 17:20 11/06/17 17:20 Intake & Output 11/05/17 11/06/17 11/07/17 06:59 06:59 06:59 Intake Total 20 25 200 Output Total 0 850 Balance 20 -825 200 Weight 90.8 kg 90.3 kg Exam: General: Patient is alert and looks well. HEENT: There is no pallor or jaundice. PERRLA. Oropharynx normal Respiratory: No chest deformity. No respiratory distress. Chest wall palpitation was unremarkable. Breath sounds were normal Cardiovascular: Heart sounds 1 and 2 normal with no murmurs. Abdominal: Not distended. Soft and nontender. Liver and spleen not palpable. No ascites demonstrated. Bowel sounds active. Rectal examination was deferred. Extremities: No edema Neurological: Alert and oriented x4. Grossly nonfocal. Normal speech Skin: No significant rash Psychological: Normal affect Results Laboratory Results: 11/06/17 04:05 11/06/17 04:05 11/06/17 11/06/17 04:05 04:05 WBC 9.4 RBC 4.69 Hgb 11.8 L Hct 35.0 L MCV 75 L MCH 25.2 L MCHC 33.8 RDW 14.6 H Plt Count 232 Seg Neutrophils % 57.7 Lymphocytes % 28.6 Monocytes % 10.9 Eosinophils % 2.2 Basophils % 0.6 Absolute Neutrophils 5.4 Absolute Lymphocytes 2.7 Absolute Monocytes 1.0 Absolute Eosinophils 0.2 Absolute Basophils 0.1 Sodium 134.6 L Potassium 3.2 L Chloride 99 Carbon Dioxide 27 Anion Gap 9 BUN 53 H Creatinine 3.90 H Est GFR ( Amer) 14 L Est GFR (Non-Af Amer) 11 L Glucose 202 H Calcium 8.4 Total Bilirubin 0.3 AST 23 ALT 27 Alkaline Phosphatase 93 Total Protein 6.1 L Albumin 3.0 L 11/03/17 11/03/17 11/03/17 08:47 08:47 08:47 Creatine Kinase 75 CK-MB (CK-2) 3.48 Troponin I 0.063 NT-Pro-B Natriuret Pep 2220 H 11/03/17 11/03/17 11/03/17 15:30 15:30 21:24 Creatine Kinase 88 98 CK-MB (CK-2) 4.75 H Troponin I 0.093 NT-Pro-B Natriuret Pep 11/03/17 21:24 Creatine Kinase CK-MB (CK-2) 5.38 H Troponin I 0.082 NT-Pro-B Natriuret Pep Impressions: Abdomen Ultrasound 11/03/17 00:00 IMPRESSION: LIMITED STUDY. FATTY INFILTRATION OF THE LIVER. NO OTHER SIGNIFICANT FINDINGS. Chest X-Ray 11/03/17 03:41 IMPRESSION: 1. No acute pulmonary process identified. Abdomen/Pelvis CT 11/03/17 04:48 IMPRESSION: 1. No acute inflammatory or obstructive abnormality identified. This exam was performed according to our departmental dose-optimization program, which includes automated exposure control, adjustment of the mA and/or kV according to patient size and/or use of iterative reconstruction technique. Assessment & Plan - Diagnosis (1) Epigastric pain Is this a current diagnosis for this admission?: Yes Plan: Differential diagnosis for her pain include peptic ulcer disease, esophagitis, GI neoplasm or hypertensive emergency. She is doing better and has been moved from ICU. She will undergo an EGD for further evaluation. She will need a colonoscopy as outpatient if the EGD is unremarkable (3) Gastroesophageal reflux disease Is this a current diagnosis for this admission?: Yes (4) Fatty liver Is this a current diagnosis for this admission?: Yes
--- NOTE | 2017-11-06 17:29 | Operative Report ---
Operative Report DATE OF SURGERY: 11/06/17 Operative Report: Pre-op diagnosis: Epigastric pain and nausea Post-op diagnosis: Antral gastritis Surgery: Esophagogastroduodenoscopy with biopsy Medications: Versed 2mg Fentanyl 100 mcg IV push Tissue removed: Antral biopsy for pathology Procedure: After informed consent obtained from patient, the throat was sprayed with Hurricane and conscious sedation was achieved. The upper endoscope was inserted into the esophagus under direct vision and advanced into the stomach. The duodenum was entered and examined to the second part. Endoscope was then slowly pulled out of the patient as the mucosa was examined into details. Patient tolerated procedure well. Findings Esophagus: Normal Z-line at: 40 cm Antrum: Mild erythema Body: Normal except for some food in the stomach Fundus: Normal Duodenum first part: Normal Duodenum second part: Normal Plan: Await pathology. Continue PPI OPERATION: .
[2017-11-06] MEDS ORDERED: LEVOFLOXACIN 500 MG/D5W RTU 500 MG/100 ML RTUPB IV SCH (18:00)
[2017-11-06] MEDS: POTASSIUM CHLORIDE 20 MEQ/50 ML RTU IV SCH ×2 (20:39→23:59)
--- NOTE | 2017-11-06 21:07 | PDOC PROGRESS REPORT ---
Subjective Progress Note for:: 11/06/17 Subjective:: She was seen by the bedside, she had EGD done today it was normal. She was seen by nephrology she sustained acute kidney injury most likely due to ATN from blood pressure control. She is also found to have enterococcus faecalis UTI Reason For Visit: HYPERTENSIVE EMERGENCY, CKD, STAGE 3, T2DM Physical Exam Vital Signs: Temp Pulse Resp BP Pulse Ox 98.0 F 60 10 L 146/69 H 99 11/06/17 16:04 11/06/17 19:00 11/06/17 17:25 11/06/17 17:25 11/06/17 17:25 Intake & Output 11/05/17 11/06/17 11/07/17 06:59 06:59 06:59 Intake Total 20 25 1178 Output Total 0 850 700 Balance 20 -825 478 Weight 90.8 kg 90.3 kg General appearance: PRESENT: no acute distress Head exam: PRESENT: atraumatic, normocephalic Eye exam: PRESENT: conjunctiva pink, EOMI, PERRLA Mouth exam: PRESENT: moist, tongue midline Neck exam: PRESENT: full ROM Respiratory exam: PRESENT: clear to auscultation jeanette Cardiovascular exam: PRESENT: RRR, +S1, +S2 Vascular exam: PRESENT: normal capillary refill GI/Abdominal exam: PRESENT: normal bowel sounds, soft Rectal exam: PRESENT: deferred Neurological exam: PRESENT: alert, CN II-XII grossly intact Psychiatric exam: PRESENT: appropriate affect, normal mood Skin exam: PRESENT: dry, intact, warm. ABSENT: cyanosis, rash Results Laboratory Results: 11/06/17 04:05 11/06/17 04:05 11/06/17 11/06/17 04:05 04:05 WBC 9.4 RBC 4.69 Hgb 11.8 L Hct 35.0 L MCV 75 L MCH 25.2 L MCHC 33.8 RDW 14.6 H Plt Count 232 Seg Neutrophils % 57.7 Lymphocytes % 28.6 Monocytes % 10.9 Eosinophils % 2.2 Basophils % 0.6 Absolute Neutrophils 5.4 Absolute Lymphocytes 2.7 Absolute Monocytes 1.0 Absolute Eosinophils 0.2 Absolute Basophils 0.1 Sodium 134.6 L Potassium 3.2 L Chloride 99 Carbon Dioxide 27 Anion Gap 9 BUN 53 H Creatinine 3.90 H Est GFR ( Amer) 14 L Est GFR (Non-Af Amer) 11 L Glucose 202 H Calcium 8.4 Total Bilirubin 0.3 AST 23 ALT 27 Alkaline Phosphatase 93 Total Protein 6.1 L Albumin 3.0 L 11/03/17 11/03/17 11/03/17 08:47 08:47 08:47 Creatine Kinase 75 CK-MB (CK-2) 3.48 Troponin I 0.063 NT-Pro-B Natriuret Pep 2220 H 11/03/17 11/03/17 11/03/17 15:30 15:30 21:24 Creatine Kinase 88 98 CK-MB (CK-2) 4.75 H Troponin I 0.093 NT-Pro-B Natriuret Pep 11/03/17 21:24 Creatine Kinase CK-MB (CK-2) 5.38 H Troponin I 0.082 NT-Pro-B Natriuret Pep Impressions: Abdomen Ultrasound 11/03/17 00:00 IMPRESSION: LIMITED STUDY. FATTY INFILTRATION OF THE LIVER. NO OTHER SIGNIFICANT FINDINGS. Chest X-Ray 11/03/17 03:41 IMPRESSION: 1. No acute pulmonary process identified. Abdomen/Pelvis CT 11/03/17 04:48 IMPRESSION: 1. No acute inflammatory or obstructive abnormality identified. This exam was performed according to our departmental dose-optimization program, which includes automated exposure control, adjustment of the mA and/or kV according to patient size and/or use of iterative reconstruction technique. 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 insulin use: with [facility] use Chronic kidney disease stage: stage 3 (moderate) Qualified Code(s): E11.22 - Type 2 diabetes mellitus with diabetic chronic kidney disease; N18.3 - Chronic kidney disease, stage 3 ( moderate); N18.3 - Chronic kidney disease, stage 3 (moderate); Z79.4 - emt intermediate (current) use of insulin; Z79.4 - emt intermediate (current) use of insulin; Z79.4 - group home (current) use of insulin; Z79.4 - emt intermediate (current) use of insulin Is this a current diagnosis for this admission?: Yes (4) Nephrotic range proteinuria Is this a current diagnosis for this admission?: Yes (5) Lumbar radiculopathy Is this a current diagnosis for this admission?: Yes (6) Acute kidney injury Is this a current diagnosis for this admission?: Yes (7) Secondary hyperparathyroidism (of renal origin) Is this a current diagnosis for this admission?: Yes (8) Acute renal tubular necrosis Is this a current diagnosis for this admission?: Yes - Plan Summary Plan Summary: Continue IV antibiotic and other medications
[2017-11-06] MEDS: ATORVASTATIN CALCIUM 80 MG TABLET PO SCH (21:52)
[2017-11-07 04:53] LABS: ANION GAP 9 (5-19); BLOOD UREA NITROGEN 51 mg/dL (7-20); CALCIUM 7.8 mg/dL (8.4-10.2); CARBON DIOXIDE 25 mmol/L (22-30); CHLORIDE 97 mmol/L (98-107); GLUCOSE 188 mg/dL (75-110); POTASSIUM 4.2 mmol/L (3.6-5.0); SODIUM 130.7 mmol/L (137-145)
[2017-11-07] MEDS: PREGABALIN 50 MG CAPSULE PO SCH ×2 (05:27→18:22)
[2017-11-07] MEDS: HEPARIN SOD (PORCINE) 5,000 UNIT/ML 1 ML SYRINGE SUBCUT SCH ×3 (05:27→22:23)
[2017-11-07] MEDS: CLONIDINE HCL 0.2 MG TABLET PO SCH ×2 (09:41→22:09)
[2017-11-07] MEDS: FUROSEMIDE 40 MG TABLET PO SCH (09:42)
[2017-11-07] MEDS: METOPROLOL TARTRATE 100 MG TABLET PO SCH ×2 (09:42→22:09)
[2017-11-07] MEDS: ASPIRIN 81 MG TABLET, ENT COATED PO SCH (09:42)
[2017-11-07] MEDS: AMLODIPINE BESYLATE 10 MG TABLET PO SCH (09:42)
[2017-11-07] MEDS: INSULIN GLARGINE,HUM.REC.ANLOG 300 UNIT/3 ML INSULN.PEN SUBCUT SCH ×2 (09:43→22:23)
[2017-11-07] MEDS: ONDANSETRON HCL 8 MG TABLET PO SCH ×2 (09:43→18:22)
[2017-11-07] MEDS: INSULIN LISPRO 100 UNIT/ML 3 ML VIAL SUBCUT PRN ×4 (09:43→22:24)
--- NOTE | 2017-11-07 17:39 | PDOC PROGRESS REPORT ---
Subjective Progress Note for:: 11/07/17 Subjective:: She was seen by the bedside, she sustained acute kidney injury, nonoliguric, she was seen by nephrology, Dr. Munroe Reason For Visit: HYPERTENSIVE EMERGENCY, CKD, STAGE 3, T2DM Physical Exam Vital Signs: Temp Pulse Resp BP Pulse Ox 97.9 F 55 L 16 105/51 L 96 11/07/17 12:11 11/07/17 14:00 11/07/17 12:11 11/07/17 12:11 11/07/17 12:11 Intake & Output 11/06/17 11/07/17 11/08/17 06:59 06:59 06:59 Intake Total 25 2178 Output Total 850 1100 Balance -825 1078 Weight 90.3 kg 94.2 kg General appearance: PRESENT: no acute distress, well-developed, well-nourished Head exam: PRESENT: atraumatic, normocephalic Eye exam: PRESENT: conjunctiva pink, EOMI, PERRLA. ABSENT: scleral icterus Ear exam: PRESENT: normal external ear exam Mouth exam: PRESENT: moist, tongue midline Neck exam: PRESENT: full ROM Respiratory exam: PRESENT: clear to auscultation jeanette Cardiovascular exam: PRESENT: RRR, +S1, +S2 Vascular exam: PRESENT: normal capillary refill GI/Abdominal exam: PRESENT: normal bowel sounds, soft Rectal exam: PRESENT: deferred Neurological exam: PRESENT: alert, CN II-XII grossly intact. ABSENT: motor sensory deficit Psychiatric exam: PRESENT: appropriate affect, normal mood Skin exam: PRESENT: dry, intact, warm Results Laboratory Results: 11/06/17 04:05 11/07/17 04:08 11/07/17 04:08 Sodium 130.7 L Potassium 4.2 Chloride 97 L Carbon Dioxide 25 Anion Gap 9 BUN 51 H Creatinine 3.45 H Est GFR ( Amer) 16 L Est GFR (Non-Af Amer) 13 L Glucose 188 H Calcium 7.8 L 11/03/17 11/03/17 11/03/17 08:47 08:47 08:47 Creatine Kinase 75 CK-MB (CK-2) 3.48 Troponin I 0.063 NT-Pro-B Natriuret Pep 2220 H 11/03/17 11/03/17 11/03/17 15:30 15:30 21:24 Creatine Kinase 88 98 CK-MB (CK-2) 4.75 H Troponin I 0.093 NT-Pro-B Natriuret Pep 11/03/17 21:24 Creatine Kinase CK-MB (CK-2) 5.38 H Troponin I 0.082 NT-Pro-B Natriuret Pep Impressions: Abdomen Ultrasound 11/03/17 00:00 IMPRESSION: LIMITED STUDY. FATTY INFILTRATION OF THE LIVER. NO OTHER SIGNIFICANT FINDINGS. Chest X-Ray 11/03/17 03:41 IMPRESSION: 1. No acute pulmonary process identified. Abdomen/Pelvis CT 11/03/17 04:48 IMPRESSION: 1. No acute inflammatory or obstructive abnormality identified. This exam was performed according to our departmental dose-optimization program, which includes automated exposure control, adjustment of the mA and/or kV according to patient size and/or use of iterative reconstruction technique. 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 insulin use: with detention use Chronic kidney disease stage: stage 3 (moderate) Qualified Code(s): E11.22 - Type 2 diabetes mellitus with diabetic chronic kidney disease; N18.3 - Chronic kidney disease, stage 3 ( moderate); N18.3 - Chronic kidney disease, stage 3 (moderate); Z79.4 - [facility] (current) use of insulin; Z79.4 - adjunct faculty for [employer] terminology (current) use of insulin; Z79.4 - adjunct faculty for [employer] terminology (current) use of insulin; Z79.4 - adjunct faculty for medical terminology (current) use of insulin Is this a current diagnosis for this admission?: Yes (4) Nephrotic range proteinuria Is this a current diagnosis for this admission?: Yes (5) Lumbar radiculopathy Is this a current diagnosis for this admission?: Yes (6) Acute kidney injury Is this a current diagnosis for this admission?: Yes (7) Secondary hyperparathyroidism (of renal origin) Is this a current diagnosis for this admission?: Yes (8) Acute renal tubular necrosis Is this a current diagnosis for this admission?: Yes
--- NOTE | 2017-11-07 17:41 | PDOC PROGRESS REPORT ---
Subjective Progress Note for:: 11/07/17 Subjective:: Patient has been doing well. Her EGD last night only showed antral gastritis. She is making a better amount of urine output. She was complaining that she has not had a bowel movement but she only started eating a regular meal today. Other than that she does not have any other complaints. Her blood pressure still goes down below the threshold occasionally. Reason For Visit: HYPERTENSIVE EMERGENCY, CKD, STAGE 3, T2DM Physical Exam Vital Signs: Temp Pulse Resp BP Pulse Ox 97.9 F 55 L 16 105/51 L 96 11/07/17 12:11 11/07/17 14:00 11/07/17 12:11 11/07/17 12:11 11/07/17 12:11 Intake & Output 11/06/17 11/07/17 11/08/17 06:59 06:59 06:59 Intake Total 25 2178 Output Total 850 1100 Balance -825 1078 Weight 90.3 kg 94.2 kg Exam: General appearance: PRESENT: no acute distress, cooperative, well-developed, well-nourished Head exam: PRESENT: atraumatic, normocephalic Eye exam: PRESENT: conjunctiva pink, PERRLA. ABSENT: scleral icterus Neck exam: ABSENT: JVD Respiratory exam: PRESENT: Normal breath sounds. ABSENT: crackles, rales, rhonchi, unlabored, wheezes Cardiovascular exam: PRESENT: Regular rate rhythm -+S1, +S2. ABSENT: diastolic murmur, systolic murmur GI/Abdominal exam: PRESENT: normal bowel sounds, soft. ABSENT: guarding, mass, tenderness Extremities exam: ABSENT: No edema Neurological exam: PRESENT: alert, awake, oriented to person, place and time. Skin exam: PRESENT: dry, warm, Results Laboratory Results: 11/06/17 04:05 11/07/17 04:08 11/07/17 04:08 Sodium 130.7 L Potassium 4.2 Chloride 97 L Carbon Dioxide 25 Anion Gap 9 BUN 51 H Creatinine 3.45 H Est GFR ( Amer) 16 L Est GFR (Non-Af Amer) 13 L Glucose 188 H Calcium 7.8 L 11/03/17 11/03/17 11/03/17 08:47 08:47 08:47 Creatine Kinase 75 CK-MB (CK-2) 3.48 Troponin I 0.063 NT-Pro-B Natriuret Pep 2220 H 11/03/17 11/03/17 11/03/17 15:30 15:30 21:24 Creatine Kinase 88 98 CK-MB (CK-2) 4.75 H Troponin I 0.093 NT-Pro-B Natriuret Pep 11/03/17 21:24 Creatine Kinase CK-MB (CK-2) 5.38 H Troponin I 0.082 NT-Pro-B Natriuret Pep Impressions: Abdomen Ultrasound 11/03/17 00:00 IMPRESSION: LIMITED STUDY. FATTY INFILTRATION OF THE LIVER. NO OTHER SIGNIFICANT FINDINGS. Chest X-Ray 11/03/17 03:41 IMPRESSION: 1. No acute pulmonary process identified. Abdomen/Pelvis CT 11/03/17 04:48 IMPRESSION: 1. No acute inflammatory or obstructive abnormality identified. This exam was performed according to our departmental dose-optimization program, which includes automated exposure control, adjustment of the mA and/or kV according to patient size and/or use of iterative reconstruction technique. Assessment & Plan - Diagnosis (1) Acute kidney injury superimposed on chronic kidney disease Is this a current diagnosis for this admission?: Yes Plan: Is secondary to acute hemodynamic factors with sudden decrease of blood pressure causing acute tubular necrosis. Patient had couple of episodes in the past with this same situation. Usually patient's kidney function improved during previous episodes so hopefully this will happen again. At this time the patient does not need any renal replacement therapy. Continue to monitor kidney function, electrolytes and urine output. Avoid further nephrotoxic agents. We will need to allow a relative permissive hypertension to allow the kidney to recover with good perfusion pressure. 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 Urine output is better. Kidney function is also improved today. No need for renal replacement therapy at this point. Continue to monitor kidney function in the next 24-48 hours. (2) Acute renal tubular necrosis Is this a current diagnosis for this admission?: Yes (3) Nephrotic range proteinuria Is this a current diagnosis for this admission?: Yes (4) Hypertension Qualifiers: Qualified Code(s): I10 - Essential (primary) hypertension Is this a current diagnosis for this admission?: Yes Plan: Still has some relative hypotension especially after giving medications. The valsartan and hydrochlorothiazide were held today. I will decrease the dose of her amlodipine to 5 mg. (5) Secondary hyperparathyroidism (of renal origin) Is this a current diagnosis for this admission?: Yes Plan: Start calcitriol 0.25 mcg 3 times a week. (6) Urinary tract infection due to Enterococcus Is this a current diagnosis for this admission?: Yes (7) Hyponatremia Is this a current diagnosis for this admission?: Yes Plan: Slightly worse today. Hopefully this improves after discontinuation of the HCTZ. (8) Abdominal pain Qualifiers: Qualified Code(s): R10.13 - Epigastric pain Is this a current diagnosis for this admission?: Yes Plan: Improved. (9) Nausea and vomiting Qualifiers: Qualified Code(s): R11.2 - Nausea with vomiting, unspecified Is this a current diagnosis for this admission?: Yes Plan: Improved. Due to antral gastritis per EGD. (10) Type 2 diabetes mellitus Qualifiers: Qualified Code(s): E11.22 - Type 2 diabetes mellitus with diabetic chronic kidney disease; N18.3 - Chronic kidney disease, stage 3 (moderate); N18.3 - Chronic kidney disease, stage 3 (moderate); Z79.4 - [facility] (current) use of insulin; Z79.4 - extermination inspector (current) use of insulin; Z79.4 - [facility] (current ) use of insulin; Z79.4 - extermination inspector (current) use of insulin Is this a current diagnosis for this admission?: Yes (11) Lumbar radiculopathy Is this a current diagnosis for this admission?: Yes - Time Time with patient: 15-25 minutes
[2017-11-07] MEDS: ATORVASTATIN CALCIUM 80 MG TABLET PO SCH (22:22)
[2017-11-08 05:18] LABS: ANION GAP 10 (5-19); BLOOD UREA NITROGEN 45 mg/dL (7-20); CALCIUM 8.2 mg/dL (8.4-10.2); CARBON DIOXIDE 23 mmol/L (22-30); CHLORIDE 95 mmol/L (98-107); GLUCOSE 155 mg/dL (75-110); POTASSIUM 4.1 mmol/L (3.6-5.0); SODIUM 127.6 mmol/L (137-145)
[2017-11-08] MEDS: PREGABALIN 50 MG CAPSULE PO SCH ×2 (06:40→18:14)
[2017-11-08] MEDS: HEPARIN SOD (PORCINE) 5,000 UNIT/ML 1 ML SYRINGE SUBCUT SCH ×3 (06:40→22:30)
[2017-11-08] MEDS: INSULIN LISPRO 100 UNIT/ML 3 ML VIAL SUBCUT PRN ×4 (07:58→22:30)
[2017-11-08] MEDS: METOPROLOL TARTRATE 100 MG TABLET PO SCH ×2 (09:15→22:16)
[2017-11-08] MEDS: INSULIN GLARGINE,HUM.REC.ANLOG 300 UNIT/3 ML INSULN.PEN SUBCUT SCH ×2 (09:17→22:30)
[2017-11-08] MEDS: CLONIDINE HCL 0.2 MG TABLET PO SCH ×2 (09:18→22:16)
[2017-11-08] MEDS: ONDANSETRON HCL 8 MG TABLET PO SCH ×2 (09:18→18:14)
[2017-11-08] MEDS: FUROSEMIDE 40 MG TABLET PO SCH (09:18)
[2017-11-08] MEDS: CALCITRIOL 0.25 MCG CAPSULE PO SCH (09:18)
[2017-11-08] MEDS: ASPIRIN 81 MG TABLET, ENT COATED PO SCH (09:18)
[2017-11-08] MEDS: AMLODIPINE BESYLATE 10 MG TABLET PO SCH (09:18)
[2017-11-08] MEDS: AMPICILLIN TRIHYD 500 MG CAPSULE PO SCH ×2 (18:14→23:50)
--- NOTE | 2017-11-08 21:07 | PDOC PROGRESS REPORT ---
Subjective Progress Note for:: 11/08/17 Subjective:: Patient said she is feeling good. She is also eating good. She is making urine. She denies any abdominal pain, nausea nor vomiting. She does not have any other complaints. Her blood pressure today is a little bit more consistent and does not have much fluctuations. Reason For Visit: HYPERTENSIVE EMERGENCY, CKD, STAGE 3, T2DM Physical Exam Vital Signs: Temp Pulse Resp BP Pulse Ox 97.9 F 62 16 138/53 H 98 11/08/17 19:32 11/08/17 19:32 11/08/17 19:32 11/08/17 19:32 11/08/17 19:32 Intake & Output 11/07/17 11/08/17 11/09/17 06:59 06:59 06:59 Intake Total 2178 1577 1354 Output Total 1100 1700 1100 Balance 1078 -123 254 Weight 94.2 kg 96.1 kg Exam: General appearance: PRESENT: no acute distress, cooperative, well-developed, well-nourished Head exam: PRESENT: atraumatic, normocephalic Eye exam: PRESENT: conjunctiva slightly pale, PERRLA. ABSENT: scleral icterus Neck exam: ABSENT: JVD Respiratory exam: PRESENT: Normal breath sounds. ABSENT: crackles, rales, rhonchi, unlabored, wheezes Cardiovascular exam: PRESENT: Regular rate rhythm -+S1, +S2. ABSENT: diastolic murmur, systolic murmur GI/Abdominal exam: PRESENT: normal bowel sounds, soft. ABSENT: guarding, mass, tenderness Extremities exam: ABSENT: No edema Neurological exam: PRESENT: alert, awake, oriented to person, place and time. Skin exam: PRESENT: dry, warm, Results Laboratory Results: 11/06/17 04:05 11/08/17 03:48 11/08/17 03:48 Sodium 127.6 L Potassium 4.1 Chloride 95 L Carbon Dioxide 23 Anion Gap 10 BUN 45 H Creatinine 3.04 H Est GFR ( Amer) 18 L Est GFR (Non-Af Amer) 15 L Glucose 155 H Calcium 8.2 L 11/03/17 10:42 Blood Blood Culture - Final NO GROWTH IN 5 DAYS 11/03/17 08:47 Blood Blood Culture - Final NO GROWTH IN 5 DAYS 11/03/17 11/03/17 11/03/17 08:47 08:47 08:47 Creatine Kinase 75 CK-MB (CK-2) 3.48 Troponin I 0.063 NT-Pro-B Natriuret Pep 2220 H 11/03/17 11/03/17 11/03/17 15:30 15:30 21:24 Creatine Kinase 88 98 CK-MB (CK-2) 4.75 H Troponin I 0.093 NT-Pro-B Natriuret Pep 11/03/17 21:24 Creatine Kinase CK-MB (CK-2) 5.38 H Troponin I 0.082 NT-Pro-B Natriuret Pep Impressions: Abdomen Ultrasound 11/03/17 00:00 IMPRESSION: LIMITED STUDY. FATTY INFILTRATION OF THE LIVER. NO OTHER SIGNIFICANT FINDINGS. Chest X-Ray 11/03/17 03:41 IMPRESSION: 1. No acute pulmonary process identified. Abdomen/Pelvis CT 11/03/17 04:48 IMPRESSION: 1. No acute inflammatory or obstructive abnormality identified. This exam was performed according to our departmental dose-optimization program, which includes automated exposure control, adjustment of the mA and/or kV according to patient size and/or use of iterative reconstruction technique. Assessment & Plan - Diagnosis (1) Acute kidney injury superimposed on chronic kidney disease Is this a current diagnosis for this admission?: Yes Plan: Is secondary to acute hemodynamic factors with sudden decrease of blood pressure causing acute tubular necrosis. Patient had couple of episodes in the past with this same situation. Usually patient's kidney function improved during previous episodes so hopefully this will happen again. At this time the patient does not need any renal replacement therapy. Continue to monitor kidney function, electrolytes and urine output. Avoid further nephrotoxic agents. We will need to allow a relative permissive hypertension to allow the kidney to recover with good perfusion pressure. 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 Urine output is better. Kidney function is also improved today. No need for renal replacement therapy at this point. Continue to monitor kidney function in the next 24-48 hours. (2) Acute renal tubular necrosis Is this a current diagnosis for this admission?: Yes (3) Nephrotic range proteinuria Is this a current diagnosis for this admission?: Yes (4) Hypertension Qualifiers: Hypertension type: essential hypertension Qualified Code(s): I10 - Essential (primary) hypertension Is this a current diagnosis for this admission?: Yes Plan: Continue to hold valsartan and hydrochlorothiazide for now. Continue all other medications. (5) Secondary hyperparathyroidism (of renal origin) Is this a current diagnosis for this admission?: Yes Plan: Start calcitriol 0.25 mcg 3 times a week. (6) Urinary tract infection due to Enterococcus Is this a current diagnosis for this admission?: Yes Plan: On ampicillin. (7) Hyponatremia Is this a current diagnosis for this admission?: Yes Plan: Continues to get worse today. Hopefully this improves after discontinuation of the HCTZ. We will do fluid restriction to 1 L a day. (8) Abdominal pain Qualifiers: Abdominal location: epigastric Qualified Code(s): R10.13 - Epigastric pain Is this a current diagnosis for this admission?: Yes Plan: Resolved. (9) Nausea and vomiting Qualifiers: Vomiting type: unspecified Vomiting Intractability: non-intractable Qualified Code(s): R11.2 - Nausea with vomiting, unspecified Is this a current diagnosis for this admission?: Yes Plan: Improved. Due to antral gastritis per EGD. 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
--- NOTE | 2017-11-08 21:10 | PDOC PROGRESS REPORT ---
Subjective Progress Note for:: 11/08/17 Subjective:: Patient seen by the bedside, she is alert kidney function improving, She was seen by nephrology Reason For Visit: HYPERTENSIVE EMERGENCY, CKD, STAGE 3, T2DM Physical Exam Vital Signs: Temp Pulse Resp BP Pulse Ox 97.9 F 62 16 138/53 H 98 11/08/17 19:32 11/08/17 19:32 11/08/17 19:32 11/08/17 19:32 11/08/17 19:32 Intake & Output 11/07/17 11/08/17 11/09/17 06:59 06:59 06:59 Intake Total 2178 1577 1354 Output Total 1100 1700 1100 Balance 1078 -123 254 Weight 94.2 kg 96.1 kg General appearance: PRESENT: no acute distress, well-developed, well-nourished Head exam: PRESENT: atraumatic, normocephalic Eye exam: PRESENT: conjunctiva pink, EOMI, PERRLA Neck exam: PRESENT: full ROM Respiratory exam: PRESENT: clear to auscultation jeanette Cardiovascular exam: PRESENT: RRR, +S1, +S2 Vascular exam: PRESENT: normal capillary refill GI/Abdominal exam: PRESENT: normal bowel sounds, soft Rectal exam: PRESENT: deferred Neurological exam: PRESENT: alert. ABSENT: motor sensory deficit Skin exam: PRESENT: dry, intact, warm. ABSENT: cyanosis, rash Results Laboratory Results: 11/06/17 04:05 11/08/17 03:48 11/08/17 03:48 Sodium 127.6 L Potassium 4.1 Chloride 95 L Carbon Dioxide 23 Anion Gap 10 BUN 45 H Creatinine 3.04 H Est GFR ( Amer) 18 L Est GFR (Non-Af Amer) 15 L Glucose 155 H Calcium 8.2 L 11/03/17 10:42 Blood Blood Culture - Final NO GROWTH IN 5 DAYS 11/03/17 08:47 Blood Blood Culture - Final NO GROWTH IN 5 DAYS 11/03/17 11/03/17 11/03/17 08:47 08:47 08:47 Creatine Kinase 75 CK-MB (CK-2) 3.48 Troponin I 0.063 NT-Pro-B Natriuret Pep 2220 H 11/03/17 11/03/17 11/03/17 15:30 15:30 21:24 Creatine Kinase 88 98 CK-MB (CK-2) 4.75 H Troponin I 0.093 NT-Pro-B Natriuret Pep 11/03/17 21:24 Creatine Kinase CK-MB (CK-2) 5.38 H Troponin I 0.082 NT-Pro-B Natriuret Pep Impressions: Abdomen Ultrasound 11/03/17 00:00 IMPRESSION: LIMITED STUDY. FATTY INFILTRATION OF THE LIVER. NO OTHER SIGNIFICANT FINDINGS. Chest X-Ray 11/03/17 03:41 IMPRESSION: 1. No acute pulmonary process identified. Abdomen/Pelvis CT 11/03/17 04:48 IMPRESSION: 1. No acute inflammatory or obstructive abnormality identified. This exam was performed according to our departmental dose-optimization program, which includes automated exposure control, adjustment of the mA and/or kV according to patient size and/or use of iterative reconstruction technique. Assessment & Plan - Diagnosis (1) Hypertensive emergency Is this a current diagnosis for this admission?: Yes (2) Epigastric pain Is this a current diagnosis for this admission?: Yes (3) Type 2 diabetes mellitus Qualifiers: Diabetes mellitus complication status: with kidney complications Diabetes mellitus complication detail: with chronic kidney disease Diabetes mellitus intermediate insulin use: with intermediate use Chronic kidney disease stage: stage 3 (moderate) Qualified Code(s): E11.22 - Type 2 diabetes mellitus with diabetic chronic kidney disease; N18.3 - Chronic kidney disease, stage 3 ( moderate); N18.3 - Chronic kidney disease, stage 3 (moderate); Z79.4 - termite control technician (current) use of insulin; Z79.4 - termite control technician (current) use of insulin; Z79.4 - termite control technician (current) use of insulin; Z79.4 - termite control technician (current) use of insulin Is this a current diagnosis for this admission?: Yes (4) Nephrotic range proteinuria Is this a current diagnosis for this admission?: Yes (5) Lumbar radiculopathy Is this a current diagnosis for this admission?: Yes (6) Acute kidney injury Is this a current diagnosis for this admission?: Yes (7) Secondary hyperparathyroidism (of renal origin) Is this a current diagnosis for this admission?: Yes (8) Acute renal tubular necrosis Is this a current diagnosis for this admission?: Yes
[2017-11-08 22:30] LABS: ANION GAP 10 (5-19); BLOOD UREA NITROGEN 43 mg/dL (7-20); CALCIUM 8.4 mg/dL (8.4-10.2); CARBON DIOXIDE 23 mmol/L (22-30); CHLORIDE 93 mmol/L (98-107); GLUCOSE 268 mg/dL (75-110); POTASSIUM 4.3 mmol/L (3.6-5.0); SODIUM 125.7 mmol/L (137-145)
[2017-11-08] MEDS: ATORVASTATIN CALCIUM 80 MG TABLET PO SCH (22:30)
[2017-11-09] MEDS: PREGABALIN 50 MG CAPSULE PO SCH ×2 (05:42→17:56)
[2017-11-09] MEDS: AMPICILLIN TRIHYD 500 MG CAPSULE PO SCH ×3 (05:42→17:54)
[2017-11-09] MEDS: HEPARIN SOD (PORCINE) 5,000 UNIT/ML 1 ML SYRINGE SUBCUT SCH ×3 (05:42→22:58)
[2017-11-09] MEDS: INSULIN LISPRO 100 UNIT/ML 3 ML VIAL SUBCUT PRN ×3 (08:08→22:58)
[2017-11-09] MEDS: HYDROCODONE/ACETAMINOPHEN 10-325 MG TABLET PO PRN (08:10)
[2017-11-09] MEDS: ONDANSETRON HCL 8 MG TABLET PO SCH ×2 (10:43→17:57)
[2017-11-09] MEDS: FUROSEMIDE 40 MG TABLET PO SCH (10:43)
[2017-11-09] MEDS: ASPIRIN 81 MG TABLET, ENT COATED PO SCH (10:43)
[2017-11-09] MEDS: METOPROLOL TARTRATE 100 MG TABLET PO SCH ×2 (10:44→22:58)
[2017-11-09] MEDS: CLONIDINE HCL 0.2 MG TABLET PO SCH ×2 (10:44→22:58)
[2017-11-09] MEDS: AMLODIPINE BESYLATE 10 MG TABLET PO SCH (10:45)
[2017-11-09] MEDS: INSULIN GLARGINE,HUM.REC.ANLOG 300 UNIT/3 ML INSULN.PEN SUBCUT SCH ×2 (10:47→22:58)
--- NOTE | 2017-11-09 16:19 | PDOC PROGRESS REPORT ---
Subjective Progress Note for:: 11/09/17 Subjective:: Patient is doing well without any problems. Blood pressure seems to be more consistent. No new complaints. Reason For Visit: HYPERTENSIVE EMERGENCY, CKD, STAGE 3, T2DM Physical Exam Vital Signs: Temp Pulse Resp BP Pulse Ox 98.2 F 59 L 18 155/65 H 98 11/09/17 11:26 11/09/17 11:26 11/09/17 11:26 11/09/17 11:26 11/09/17 11:26 Intake & Output 11/08/17 11/09/17 11/10/17 06:59 06:59 06:59 Intake Total 1577 1957 Output Total 1700 2300 Balance -123 -343 Weight 96.1 kg 94.4 kg 94.4 kg Exam: General appearance: PRESENT: no acute distress, cooperative, well-developed, well-nourished Head exam: PRESENT: atraumatic, normocephalic Eye exam: PRESENT: conjunctiva pink, PERRLA. ABSENT: scleral icterus Neck exam: ABSENT: JVD Respiratory exam: PRESENT: Normal breath sounds. ABSENT: crackles, rales, rhonchi, unlabored, wheezes Cardiovascular exam: PRESENT: Regular rate rhythm -+S1, +S2. ABSENT: diastolic murmur, systolic murmur GI/Abdominal exam: PRESENT: normal bowel sounds, soft. ABSENT: guarding, mass, tenderness Extremities exam: ABSENT: No edema Neurological exam: PRESENT: alert, awake, oriented to person, place and time. Skin exam: PRESENT: dry, warm, Results Laboratory Results: 11/06/17 04:05 11/08/17 21:49 11/08/17 21:49 Sodium 125.7 L Potassium 4.3 Chloride 93 L Carbon Dioxide 23 Anion Gap 10 BUN 43 H Creatinine 2.69 H Est GFR ( Amer) 21 L Est GFR (Non-Af Amer) 17 L Glucose 268 H Calcium 8.4 11/03/17 11/03/17 11/03/17 08:47 08:47 08:47 Creatine Kinase 75 CK-MB (CK-2) 3.48 Troponin I 0.063 NT-Pro-B Natriuret Pep 2220 H 11/03/17 11/03/17 11/03/17 15:30 15:30 21:24 Creatine Kinase 88 98 CK-MB (CK-2) 4.75 H Troponin I 0.093 NT-Pro-B Natriuret Pep 11/03/17 21:24 Creatine Kinase CK-MB (CK-2) 5.38 H Troponin I 0.082 NT-Pro-B Natriuret Pep Impressions: Abdomen Ultrasound 11/03/17 00:00 IMPRESSION: LIMITED STUDY. FATTY INFILTRATION OF THE LIVER. NO OTHER SIGNIFICANT FINDINGS. Chest X-Ray 11/03/17 03:41 IMPRESSION: 1. No acute pulmonary process identified. Abdomen/Pelvis CT 11/03/17 04:48 IMPRESSION: 1. No acute inflammatory or obstructive abnormality identified. This exam was performed according to our departmental dose-optimization program, which includes automated exposure control, adjustment of the mA and/or kV according to patient size and/or use of iterative reconstruction technique. Assessment & Plan - Diagnosis (1) Acute kidney injury superimposed on chronic kidney disease Is this a current diagnosis for this admission?: Yes Plan: Is secondary to acute hemodynamic factors with sudden decrease of blood pressure causing acute tubular necrosis. Patient had couple of episodes in the past with this same situation. Usually patient's kidney function improved during previous episodes so hopefully this will happen again. At this time the patient does not need any renal replacement therapy. Continue to monitor kidney function, electrolytes and urine output. Avoid further nephrotoxic agents. We will need to allow a relative permissive hypertension to allow the kidney to recover with good perfusion pressure. 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 Urine output is better. Kidney function is also improved today. I think her kidney function is just continue to improve moving forward. (2) Acute renal tubular necrosis Is this a current diagnosis for this admission?: Yes (3) Nephrotic range proteinuria Is this a current diagnosis for this admission?: Yes Plan: Due to diabetic nephropathy. (4) Hypertension Qualifiers: Hypertension type: essential hypertension Qualified Code(s): I10 - Essential (primary) hypertension Is this a current diagnosis for this admission?: Yes Plan: Continue to hold valsartan and hydrochlorothiazide for now. Continue all other medications. (5) Hyponatremia Is this a current diagnosis for this admission?: Yes Plan: Continues to get worse today. Hydrochlorothiazide has been on hold for the last few days. However sodium level continued to go down. I am going to give her a dose of tolvaptan 15 mg today. Recheck sodium tomorrow. (6) Secondary hyperparathyroidism (of renal origin) Is this a current diagnosis for this admission?: Yes Plan: Start calcitriol 0.25 mcg 3 times a week. (7) Urinary tract infection due to Enterococcus Is this a current diagnosis for this admission?: Yes Plan: On ampicillin. (8) Nausea and vomiting Qualifiers: Vomiting type: unspecified Vomiting Intractability: non-intractable Qualified Code(s): R11.2 - Nausea with vomiting, unspecified Is this a current diagnosis for this admission?: Yes Plan: Improved. Due to antral gastritis per EGD. (9) Type 2 diabetes mellitus Qualifiers: Diabetes mellitus complication status: with kidney complications Diabetes mellitus complication detail: with chronic kidney disease Diabetes mellitus custodial insulin use: with bed bug exterminator use Chronic kidney disease stage: stage 3 (moderate) Qualified Code(s): E11.22 - Type 2 diabetes mellitus with diabetic chronic kidney disease; N18.3 - Chronic kidney disease, stage 3 ( moderate); N18.3 - Chronic kidney disease, stage 3 (moderate); Z79.4 - longterm (current) use of insulin; Z79.4 - longterm (current) use of insulin; Z79.4 - longterm (current) use of insulin; Z79.4 - bed bug exterminator (current) use of insulin Is this a current diagnosis for this admission?: Yes (10) Lumbar radiculopathy Is this a current diagnosis for this admission?: Yes - Notes Notes: If the patient's sodium level improved tomorrow then from nephrology standpoint I think she can be discharged home. I will be happy to see the patient in my office for follow-up in 2-3 weeks with repeat BMP prior to appointment. - Time Time with patient: 15-25 minutes
[2017-11-09] MEDS ORDERED: TOLVAPTAN 15 MG TABLET PO ONE (16:45)
--- NOTE | 2017-11-09 21:20 | PDOC PROGRESS REPORT ---
Subjective Progress Note for:: 11/09/17 Subjective:: Patient was seen by the bedside the serum creatinine is 2.65, she is making urine she will stay through the weekend, hopefully discharge home on Sunday Reason For Visit: HYPERTENSIVE EMERGENCY, CKD, STAGE 3, T2DM Physical Exam Vital Signs: Temp Pulse Resp BP Pulse Ox 98.0 F 57 L 17 142/59 H 100 11/09/17 19:48 11/09/17 19:48 11/09/17 19:48 11/09/17 19:48 11/09/17 19:48 Intake & Output 11/08/17 11/09/17 11/10/17 06:59 06:59 06:59 Intake Total 1577 1957 474 Output Total 1700 2300 1000 Balance -521 -316 -866 Weight 96.1 kg 94.4 kg 94.4 kg General appearance: PRESENT: no acute distress Eye exam: PRESENT: PERRLA Respiratory exam: PRESENT: clear to auscultation jeanette Cardiovascular exam: PRESENT: +S1, +S2 GI/Abdominal exam: PRESENT: soft Neurological exam: PRESENT: alert Results Laboratory Results: 11/06/17 04:05 11/08/17 21:49 11/08/17 21:49 Sodium 125.7 L Potassium 4.3 Chloride 93 L Carbon Dioxide 23 Anion Gap 10 BUN 43 H Creatinine 2.69 H Est GFR ( Amer) 21 L Est GFR (Non-Af Amer) 17 L Glucose 268 H Calcium 8.4 11/03/17 11/03/17 11/03/17 08:47 08:47 08:47 Creatine Kinase 75 CK-MB (CK-2) 3.48 Troponin I 0.063 NT-Pro-B Natriuret Pep 2220 H 11/03/17 11/03/17 11/03/17 15:30 15:30 21:24 Creatine Kinase 88 98 CK-MB (CK-2) 4.75 H Troponin I 0.093 NT-Pro-B Natriuret Pep 11/03/17 21:24 Creatine Kinase CK-MB (CK-2) 5.38 H Troponin I 0.082 NT-Pro-B Natriuret Pep Impressions: Abdomen Ultrasound 11/03/17 00:00 IMPRESSION: LIMITED STUDY. FATTY INFILTRATION OF THE LIVER. NO OTHER SIGNIFICANT FINDINGS. Chest X-Ray 11/03/17 03:41 IMPRESSION: 1. No acute pulmonary process identified. Abdomen/Pelvis CT 11/03/17 04:48 IMPRESSION: 1. No acute inflammatory or obstructive abnormality identified. This exam was performed according to our departmental dose-optimization program, which includes automated exposure control, adjustment of the mA and/or kV according to patient size and/or use of iterative reconstruction technique. Assessment & Plan - Diagnosis (1) Hypertensive emergency Is this a current diagnosis for this admission?: Yes (2) Epigastric pain Is this a current diagnosis for this admission?: Yes (3) Type 2 diabetes mellitus Qualifiers: Diabetes mellitus complication status: with kidney complications Diabetes mellitus complication detail: with chronic kidney disease Diabetes mellitus senior living insulin use: with petroleum terminal plant operator use Chronic kidney disease stage: stage 3 (moderate) Qualified Code(s): E11.22 - Type 2 diabetes mellitus with diabetic chronic kidney disease; N18.3 - Chronic kidney disease, stage 3 ( moderate); N18.3 - Chronic kidney disease, stage 3 (moderate); Z79.4 - oysterman (current) use of insulin; Z79.4 - [facility] (current) use of insulin; Z79.4 - [facility] (current) use of insulin; Z79.4 - [facility] (current) use of insulin Is this a current diagnosis for this admission?: Yes (4) Nephrotic range proteinuria Is this a current diagnosis for this admission?: Yes (5) Lumbar radiculopathy Is this a current diagnosis for this admission?: Yes (6) Acute kidney injury Is this a current diagnosis for this admission?: Yes (7) Secondary hyperparathyroidism (of renal origin) Is this a current diagnosis for this admission?: Yes (8) Acute renal tubular necrosis Is this a current diagnosis for this admission?: Yes
[2017-11-09] MEDS: ATORVASTATIN CALCIUM 80 MG TABLET PO SCH (22:58)
[2017-11-10] MEDS: AMPICILLIN TRIHYD 500 MG CAPSULE PO SCH ×4 (00:47→18:28)
[2017-11-10 05:38] LABS: ANION GAP 8 (5-19); BLOOD UREA NITROGEN 35 mg/dL (7-20); CALCIUM 9.1 mg/dL (8.4-10.2); CARBON DIOXIDE 27 mmol/L (22-30); CHLORIDE 98 mmol/L (98-107); GLUCOSE 153 mg/dL (75-110); POTASSIUM 4.4 mmol/L (3.6-5.0); SODIUM 132.9 mmol/L (137-145)
[2017-11-10] MEDS: PREGABALIN 50 MG CAPSULE PO SCH ×2 (06:22→18:28)
[2017-11-10] MEDS: HEPARIN SOD (PORCINE) 5,000 UNIT/ML 1 ML SYRINGE SUBCUT SCH ×3 (06:22→22:25)
[2017-11-10] MEDS: FUROSEMIDE 40 MG TABLET PO SCH (11:04)
[2017-11-10] MEDS: ASPIRIN 81 MG TABLET, ENT COATED PO SCH (11:05)
[2017-11-10] MEDS: AMLODIPINE BESYLATE 10 MG TABLET PO SCH (11:05)
[2017-11-10] MEDS: CALCITRIOL 0.25 MCG CAPSULE PO SCH (11:05)
[2017-11-10] MEDS: CLONIDINE HCL 0.2 MG TABLET PO SCH ×2 (11:05→22:25)
[2017-11-10] MEDS: ONDANSETRON HCL 8 MG TABLET PO SCH ×2 (11:06→18:29)
[2017-11-10] MEDS: INSULIN GLARGINE,HUM.REC.ANLOG 300 UNIT/3 ML INSULN.PEN SUBCUT SCH ×2 (11:07→22:26)
[2017-11-10] MEDS: METOPROLOL TARTRATE 100 MG TABLET PO SCH (11:08)
--- NOTE | 2017-11-10 17:56 | PDOC PROGRESS REPORT ---
Subjective Progress Note for:: 11/10/17 Subjective:: Patient denied chest pain or difficulty with breathing. No nausea or vomiting. Heart rate has been in the 50's mostly and her Metoprolol have been on hold so far today. No fever or chills. No headache or dizziness. Reason For Visit: HYPERTENSIVE EMERGENCY, CKD, STAGE 3, T2DM Physical Exam Vital Signs: Temp Pulse Resp BP Pulse Ox 97.4 F 56 L 18 168/69 H 100 11/10/17 15:45 11/10/17 15:45 11/10/17 15:45 11/10/17 15:45 11/10/17 15:45 Intake & Output 11/09/17 11/10/17 11/11/17 06:59 06:59 06:59 Intake Total 1957 792 210 Output Total 2300 1950 600 Balance -343 -1158 -390 Weight 94.4 kg 95.7 kg General appearance: PRESENT: no acute distress, obese Head exam: PRESENT: atraumatic, normocephalic Eye exam: PRESENT: conjunctiva pink, EOMI, PERRLA. ABSENT: scleral icterus Mouth exam: PRESENT: moist Respiratory exam: PRESENT: clear to auscultation jeanette Cardiovascular exam: PRESENT: bradycardia, RRR, +S1, +S2. ABSENT: systolic murmur Vascular exam: PRESENT: normal capillary refill. ABSENT: pallor GI/Abdominal exam: PRESENT: normal bowel sounds, soft. ABSENT: distended, guarding, mass, organolmegaly, rebound, tenderness Extremities exam: ABSENT: pedal edema Musculoskeletal exam: PRESENT: normal inspection Neurological exam: PRESENT: alert, awake, oriented to person, oriented to place , oriented to time, oriented to situation, CN II-XII grossly intact. ABSENT: motor sensory deficit Psychiatric exam: PRESENT: appropriate affect, normal mood. ABSENT: homicidal ideation, suicidal ideation Skin exam: PRESENT: dry, intact, warm. ABSENT: cyanosis, rash Results Laboratory Results: 11/06/17 04:05 11/10/17 04:33 11/10/17 04:33 Sodium 132.9 L Potassium 4.4 Chloride 98 Carbon Dioxide 27 Anion Gap 8 BUN 35 H Creatinine 2.33 H Est GFR ( Amer) 25 L Est GFR (Non-Af Amer) 21 L Glucose 153 H Calcium 9.1 11/03/17 11/03/1711/03/18 08:47 08:47 08:47 Creatine Kinase 75 CK-MB (CK-2) 3.48 Troponin I 0.063 NT-Pro-B Natriuret Pep 2220 H 11/03/17 11/03/17 11/03/17 15:30 15:30 21:24 Creatine Kinase 88 98 CK-MB (CK-2) 4.75 H Troponin I 0.093 NT-Pro-B Natriuret Pep 11/03/17 21:24 Creatine Kinase CK-MB (CK-2) 5.38 H Troponin I 0.082 NT-Pro-B Natriuret Pep Impressions: Abdomen Ultrasound 11/03/17 00:00 IMPRESSION: LIMITED STUDY. FATTY INFILTRATION OF THE LIVER. NO OTHER SIGNIFICANT FINDINGS. Chest X-Ray 11/03/17 03:41 IMPRESSION: 1. No acute pulmonary process identified. Abdomen/Pelvis CT 11/03/17 04:48 IMPRESSION: 1. No acute inflammatory or obstructive abnormality identified. This exam was performed according to our departmental dose-optimization program, which includes automated exposure control, adjustment of the mA and/or kV according to patient size and/or use of iterative reconstruction technique. Assessment & Plan - Diagnosis (1) Acute kidney injury superimposed on chronic kidney disease Is this a current diagnosis for this admission?: Yes Plan: See covering attending physician orders. (2) Hypertension Qualifiers: Hypertension type: essential hypertension Qualified Code(s): I10 - Essential (primary) hypertension Is this a current diagnosis for this admission?: Yes Plan: See covering attending physician orders. (3) Type 2 diabetes mellitus Qualifiers: Diabetes mellitus complication status: with kidney complications Diabetes mellitus complication detail: with nephropathy Diabetes mellitus long-term insulin use: without rat exterminator use Qualified Code(s): E11.21 - Type 2 diabetes mellitus with diabetic nephropathy Is this a current diagnosis for this admission?: Yes Plan: See covering attending physician orders. (4) Class 2 obesity with serious comorbidity and body mass index (BMI) of 38.0 to 38.9 in adult Qualifiers: Obesity type: due to excess calories Qualified Code(s): E66.01 - Morbid ( severe) obesity due to excess calories; Z68.38 - Body mass index (BMI) 38.0-38.9 , adult; Z68.38 - Body mass index (BMI) 38.0-38.9, adult Is this a current diagnosis for this admission?: Yes Plan: See covering attending physician orders. - Time Time Spent with patient: 25-34 minutes Medications reviewed and adjusted accordingly: Yes Anticipated discharge: Home Within: Other - Inpatient Certification Based on my medical assessment, after consideration of the patient's comorbidities, presenting symptoms, or acuity I expect that the services needed warrant INPATIENT care.: Yes I certify that my determination is in accordance with my understanding of Medicare's requirements for reasonable and necessary INPATIENT services [42 CFR 412.3e].: Yes Medical Necessity: Need Close Monitoring Due to Risk of Patient Decompensation, Need For Continuous Telemetry Monitoring, Risk of Complication if Not Cared For in Hospital Post Hospital Care: D/C Rice Cleaning Machine Tender Documentation - Plan Summary Plan Summary: See covering attending physician orders.
[2017-11-10] MEDS: INSULIN LISPRO 100 UNIT/ML 3 ML VIAL SUBCUT PRN ×2 (18:28→22:26)
[2017-11-10] MEDS: METOPROLOL TARTRATE 50 MG TABLET PO SCH (22:18)
[2017-11-10] MEDS: AMLODIPINE BESYLATE 5 MG TABLET PO SCH (22:25)
[2017-11-10] MEDS: ATORVASTATIN CALCIUM 80 MG TABLET PO SCH (22:26)
[2017-11-11] MEDS: AMPICILLIN TRIHYD 500 MG CAPSULE PO SCH ×4 (00:48→17:29)
[2017-11-11] MEDS: HEPARIN SOD (PORCINE) 5,000 UNIT/ML 1 ML SYRINGE SUBCUT SCH ×3 (04:56→22:19)
[2017-11-11] MEDS: PREGABALIN 50 MG CAPSULE PO SCH ×2 (04:56→17:29)
[2017-11-11 05:48] LABS: ANION GAP 6 (5-19); BLOOD UREA NITROGEN 31 mg/dL (7-20); CALCIUM 8.6 mg/dL (8.4-10.2); CARBON DIOXIDE 27 mmol/L (22-30); CHLORIDE 100 mmol/L (98-107); GLUCOSE 155 mg/dL (75-110); POTASSIUM 4.5 mmol/L (3.6-5.0); SODIUM 132.6 mmol/L (137-145)
[2017-11-11] MEDS: INSULIN GLARGINE,HUM.REC.ANLOG 300 UNIT/3 ML INSULN.PEN SUBCUT SCH ×2 (10:02→22:29)
[2017-11-11] MEDS: INSULIN LISPRO 100 UNIT/ML 3 ML VIAL SUBCUT PRN ×4 (10:04→22:21)
[2017-11-11] MEDS: ASPIRIN 81 MG TABLET, ENT COATED PO SCH (10:05)
[2017-11-11] MEDS: FUROSEMIDE 40 MG TABLET PO SCH (10:05)
[2017-11-11] MEDS: CLONIDINE HCL 0.2 MG TABLET PO SCH ×2 (10:06→22:15)
[2017-11-11] MEDS: AMLODIPINE BESYLATE 5 MG TABLET PO SCH ×2 (10:06→22:14)
[2017-11-11] MEDS: METOPROLOL TARTRATE 50 MG TABLET PO SCH ×2 (10:07→22:39)
--- NOTE | 2017-11-11 14:44 | PDOC PROGRESS REPORT ---
Subjective Progress Note for:: 11/11/17 Subjective:: Hyperglycemia is still a concern. No chest pain or difficulty with breathing. Bradycardia is improving. No reported fever or chills. Renal function indices improving. Reason For Visit: HYPERTENSIVE EMERGENCY, CKD, STAGE 3, T2DM Physical Exam Vital Signs: Temp Pulse Resp BP Pulse Ox 98.2 F 58 L 16 167/65 H 99 11/11/17 07:37 11/11/17 07:37 11/11/17 07:37 11/11/17 07:37 11/11/17 07:37 Intake & Output 11/10/17 11/11/17 11/12/17 06:59 06:59 06:59 Intake Total 792 1430 600 Output Total 1950 3200 500 Balance -1158 -1770 100 Weight 95.7 kg 95.8 kg Physical Exam: General appearance: PRESENT: no acute distress, obese Head exam: PRESENT: atraumatic, normocephalic Eye exam: PRESENT: conjunctiva pink, EOMI, PERRLA. ABSENT: scleral icterus Mouth exam: PRESENT: moist Respiratory exam: PRESENT: clear to auscultation jeanette Cardiovascular exam: PRESENT: bradycardia, RRR, +S1, +S2. ABSENT: systolic murmur Vascular exam: PRESENT: normal capillary refill. ABSENT: pallor GI/Abdominal exam: PRESENT: normal bowel sounds, soft. ABSENT: distended, guarding, mass, organomegaly, rebound, tenderness Extremities exam: ABSENT: pedal edema Musculoskeletal exam: PRESENT: normal inspection Neurological exam: PRESENT: alert, awake, oriented to person, oriented to place , oriented to time, oriented to situation, CN II-XII grossly intact. ABSENT: motor sensory deficit Psychiatric exam: PRESENT: appropriate affect, normal mood. ABSENT: homicidal ideation, suicidal ideation Skin exam: PRESENT: dry, intact, warm. ABSENT: cyanosis, rash Results Laboratory Results: 11/06/17 04:05 11/11/17 04:31 11/11/17 04:31 Sodium 132.6 L Potassium 4.5 Chloride 100 Carbon Dioxide 27 Anion Gap 6 BUN 31 H Creatinine 2.08 H Est GFR ( Amer) 28 L Est GFR (Non-Af Amer) 23 L Glucose 155 H Calcium 8.6 11/03/17 11/03/17 11/03/17 08:47 08:47 08:47 Creatine Kinase 75 CK-MB (CK-2) 3.48 Troponin I 0.063 NT-Pro-B Natriuret Pep 2220 H 11/03/17 11/03/17 11/03/17 15:30 15:30 21:24 Creatine Kinase 88 98 CK-MB (CK-2) 4.75 H Troponin I 0.093 NT-Pro-B Natriuret Pep 11/03/17 21:24 Creatine Kinase CK-MB (CK-2) 5.38 H Troponin I 0.082 NT-Pro-B Natriuret Pep Impressions: Abdomen Ultrasound 11/03/17 00:00 IMPRESSION: LIMITED STUDY. FATTY INFILTRATION OF THE LIVER. NO OTHER SIGNIFICANT FINDINGS. Chest X-Ray 11/03/17 03:41 IMPRESSION: 1. No acute pulmonary process identified. Abdomen/Pelvis CT 11/03/17 04:48 IMPRESSION: 1. No acute inflammatory or obstructive abnormality identified. This exam was performed according to our departmental dose-optimization program, which includes automated exposure control, adjustment of the mA and/or kV according to patient size and/or use of iterative reconstruction technique. Assessment & Plan - Diagnosis (1) Acute kidney injury superimposed on chronic kidney disease Is this a current diagnosis for this admission?: Yes (2) Hypertension Qualifiers: Hypertension type: essential hypertension Qualified Code(s): I10 - Essential (primary) hypertension Is this a current diagnosis for this admission?: Yes (3) Type 2 diabetes mellitus Qualifiers: Diabetes mellitus complication status: with kidney complications Diabetes mellitus complication detail: with nephropathy Diabetes mellitus residential insulin use: without termite renewal inspector use Qualified Code(s): E11.21 - Type 2 diabetes mellitus with diabetic nephropathy Is this a current diagnosis for this admission?: Yes (4) Class 2 obesity with serious comorbidity and body mass index (BMI) of 38.0 to 38.9 in adult Qualifiers: Obesity type: due to excess calories Qualified Code(s): E66.01 - Morbid ( severe) obesity due to excess calories; Z68.38 - Body mass index (BMI) 38.0-38.9 , adult; Z68.38 - Body mass index (BMI) 38.0-38.9, adult Is this a current diagnosis for this admission?: Yes - Time Time Spent with patient: 25-34 minutes Medications reviewed and adjusted accordingly: Yes Anticipated discharge: Home Within: Other - Inpatient Certification Based on my medical assessment, after consideration of the patient's comorbidities, presenting symptoms, or acuity I expect that the services needed warrant INPATIENT care.: Yes I certify that my determination is in accordance with my understanding of Medicare's requirements for reasonable and necessary INPATIENT services [42 CFR 412.3e].: Yes Medical Necessity: Need Close Monitoring Due to Risk of Patient Decompensation, Need For Continuous Telemetry Monitoring, Risk of Complication if Not Cared For in Hospital Post Hospital Care: D/C Carbon Cleaner Documentation - Plan Summary Plan Summary: See covering attending physician orders.
[2017-11-11] MEDS: BENZOCAINE/MENTHOL SORE THROAT LOZENGE BUCCAL PRN ×2 (17:28→22:13)
[2017-11-11] MEDS: HYDROCODONE/ACETAMINOPHEN 10-325 MG TABLET PO PRN (18:17)
[2017-11-11] MEDS: ATORVASTATIN CALCIUM 80 MG TABLET PO SCH (22:14)
[2017-11-12] MEDS: AMPICILLIN TRIHYD 500 MG CAPSULE PO SCH ×5 (01:50→23:18)
[2017-11-12] MEDS: BENZOCAINE/MENTHOL SORE THROAT LOZENGE BUCCAL PRN ×2 (05:17→21:56)
[2017-11-12] MEDS: HYDROCODONE/ACETAMINOPHEN 10-325 MG TABLET PO PRN (05:18)
[2017-11-12] MEDS: HEPARIN SOD (PORCINE) 5,000 UNIT/ML 1 ML SYRINGE SUBCUT SCH ×3 (05:25→21:49)
[2017-11-12] MEDS: PREGABALIN 50 MG CAPSULE PO SCH ×2 (05:29→17:44)
[2017-11-12] MEDS: ASPIRIN 81 MG TABLET, ENT COATED PO SCH (09:22)
[2017-11-12] MEDS: INSULIN GLARGINE,HUM.REC.ANLOG 300 UNIT/3 ML INSULN.PEN SUBCUT SCH ×2 (09:22→23:18)
[2017-11-12] MEDS: ERGOCALCIFEROL (VITAMIN D2) 50000 UNIT (1.25 MG) CAPSULE PO SCH (09:22)
[2017-11-12] MEDS: FUROSEMIDE 40 MG TABLET PO SCH (09:23)
[2017-11-12] MEDS: AMLODIPINE BESYLATE 5 MG TABLET PO SCH ×2 (09:24→21:48)
[2017-11-12] MEDS: CLONIDINE HCL 0.2 MG TABLET PO SCH ×2 (09:25→21:48)
[2017-11-12] MEDS: METOPROLOL TARTRATE 50 MG TABLET PO SCH ×2 (09:26→23:11)
[2017-11-12 10:13] LABS: ABSOLUTE BASOPHILS # (AUTO) 0.1 10^3/uL (0.0-0.2); ABSOLUTE EOSINOPHILS # (AUTO) 0.4 10^3/uL (0.0-0.6); ABSOLUTE LYMPHOCYTES (AUTO) 1.8 10^3/uL (0.5-4.7); ABSOLUTE MONOCYTES (AUTO) 1.1 10^3/uL (0.1-1.4); ABSOLUTE NEUT (AUTO) 5.5 10^3/uL (1.7-8.2); BASOPHILS % (AUTO) 0.7 % (0-2); EOSINOPHILS % (AUTO) 4.9 % (0-6); HEMATOCRIT 29.7 % (36.0-47.0); HEMOGLOBIN 10.1 g/dL (12.0-15.5); MEAN CORPUSCULAR HEMOGLOBIN 25.4 pg (27.0-33.4); MEAN CORPUSCULAR HGB CONC 34.1 g/dL (32.0-36.0); MEAN CORPUSCULAR VOLUME 75 fl (80-97); MONOCYTES % (AUTO) 12.3 % (3-13); PLATELET COUNT 223 10^3/uL (150-450); RED BLOOD COUNT 3.99 10^6/uL (3.72-5.28); RED CELL DISTRIBUTION WIDTH 15.1 % (11.5-14.0); SEGMENTED NEUTROPHILS % (AUTO) 62.1 % (42-78); TOTAL CELLS COUNTED % (AUTO) 100 %; WHITE BLOOD COUNT 8.9 10^3/uL (4.0-10.5)
[2017-11-12 10:38] LABS: ALANINE AMINOTRANSFERASE 26 U/L (9-52); ALBUMIN 2.5 g/dL (3.5-5.0); ALKALINE PHOSPHATASE 109 U/L (38-126); ANION GAP 8 (5-19); ASPARTATE AMINO TRANSFERASE 16 U/L (14-36); BILIRUBIN,DIRECT 0.2 mg/dL (0.0-0.4); BILIRUBIN,TOTAL 0.2 mg/dL (0.2-1.3); BLOOD UREA NITROGEN 26 mg/dL (7-20); CALCIUM 8.7 mg/dL (8.4-10.2); CARBON DIOXIDE 27 mmol/L (22-30); CHLORIDE 98 mmol/L (98-107); GLUCOSE 197 mg/dL (75-110); POTASSIUM 4.7 mmol/L (3.6-5.0); SODIUM 133.1 mmol/L (137-145); TOTAL PROTEIN 5.2 g/dL (6.3-8.2)
[2017-11-12] MEDS: INSULIN LISPRO 100 UNIT/ML 3 ML VIAL SUBCUT PRN ×3 (11:37→21:51)
--- NOTE | 2017-11-12 18:48 | PDOC PROGRESS REPORT ---
Subjective Progress Note for:: 11/12/17 Subjective:: Patient is doing very well. She does not have any complaints. Her blood pressure has been consistent without any fluctuations. I restarted her valsartan today. Reason For Visit: HYPERTENSIVE EMERGENCY, CKD, STAGE 3, T2DM Physical Exam Vital Signs: Temp Pulse Resp BP Pulse Ox 98.3 F 66 16 162/62 H 96 11/12/17 15:44 11/12/17 15:44 11/12/17 15:44 11/12/17 15:44 11/12/17 15:44 Intake & Output 11/11/17 11/12/17 11/13/17 06:59 06:59 06:59 Intake Total 1430 1750 564 Output Total 3200 2700 1 Balance -1770 -950 563 Weight 95.8 kg 94.9 kg Exam: General appearance: PRESENT: no acute distress, cooperative, well-developed, well-nourished Head exam: PRESENT: atraumatic, normocephalic Eye exam: PRESENT: conjunctiva pink, PERRLA. ABSENT: scleral icterus Neck exam: ABSENT: JVD Respiratory exam: PRESENT: Diminished breath sounds. ABSENT: crackles, rales, rhonchi, unlabored, wheezes Cardiovascular exam: PRESENT: Regular rate rhythm -+S1, +S2. ABSENT: diastolic murmur, systolic murmur GI/Abdominal exam: PRESENT: normal bowel sounds, soft. ABSENT: guarding, mass, tenderness Extremities exam: ABSENT: No edema Neurological exam: PRESENT: alert, awake, oriented to person, place and time. Skin exam: PRESENT: dry, warm, Results Laboratory Results: 11/12/17 10:03 11/12/17 10:03 11/12/17 11/12/17 10:03 10:03 WBC 8.9 RBC 3.99 Hgb 10.1 L Hct 29.7 L MCV 75 L MCH 25.4 L MCHC 34.1 RDW 15.1 H Plt Count 223 Seg Neutrophils % 62.1 Lymphocytes % 20.0 Monocytes % 12.3 Eosinophils % 4.9 Basophils % 0.7 Absolute Neutrophils 5.5 Absolute Lymphocytes 1.8 Absolute Monocytes 1.1 Absolute Eosinophils 0.4 Absolute Basophils 0.1 Sodium 133.1 L Potassium 4.7 Chloride 98 Carbon Dioxide 27 Anion Gap 8 BUN 26 H Creatinine 1.90 H Est GFR ( Amer) 32 L Est GFR (Non-Af Amer) 26 L Glucose 197 H Calcium 8.7 Total Bilirubin 0.2 AST 16 ALT 26 Alkaline Phosphatase 109 Total Protein 5.2 L Albumin 2.5 L 11/03/17 11/03/17 11/03/17 08:47 08:47 08:47 Creatine Kinase 75 CK-MB (CK-2) 3.48 Troponin I 0.063 NT-Pro-B Natriuret Pep 2220 H 11/03/17 11/03/17 11/03/17 15:30 15:30 21:24 Creatine Kinase 88 98 CK-MB (CK-2) 4.75 H Troponin I 0.093 NT-Pro-B Natriuret Pep 11/03/17 21:24 Creatine Kinase CK-MB (CK-2) 5.38 H Troponin I 0.082 NT-Pro-B Natriuret Pep Impressions: Abdomen Ultrasound 11/03/17 00:00 IMPRESSION: LIMITED STUDY. FATTY INFILTRATION OF THE LIVER. NO OTHER SIGNIFICANT FINDINGS. Chest X-Ray 11/03/17 03:41 IMPRESSION: 1. No acute pulmonary process identified. Abdomen/Pelvis CT 11/03/17 04:48 IMPRESSION: 1. No acute inflammatory or obstructive abnormality identified. This exam was performed according to our departmental dose-optimization program, which includes automated exposure control, adjustment of the mA and/or kV according to patient size and/or use of iterative reconstruction technique. Assessment & Plan - Diagnosis (1) Acute kidney injury superimposed on chronic kidney disease Is this a current diagnosis for this admission?: Yes Plan: Is secondary to acute hemodynamic factors with sudden decrease of blood pressure causing acute tubular necrosis. 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 Kidney function is almost at baseline today. (2) Acute renal tubular necrosis Is this a current diagnosis for this admission?: Yes Plan: Almost resolved. (3) Nephrotic range proteinuria Is this a current diagnosis for this admission?: Yes Plan: Due to diabetic nephropathy. (4) Hypertension Qualifiers: Hypertension type: essential hypertension Qualified Code(s): I10 - Essential (primary) hypertension Is this a current diagnosis for this admission?: Yes Plan: Resume valsartan today. Patient should not be on hydrochlorothiazide anymore as this will be replaced by Lasix upon discharge. Continue all other blood pressure medications being received here in the hospital. (5) Hyponatremia Is this a current diagnosis for this admission?: Yes Plan: Patient received a dose of tolvaptan 15 mg last Sunday. Since then sodium has been improved. (6) Secondary hyperparathyroidism (of renal origin) Is this a current diagnosis for this admission?: Yes Plan: Start calcitriol 0.25 mcg 3 times a week. (7) Urinary tract infection due to Enterococcus Is this a current diagnosis for this admission?: Yes Plan: On ampicillin. (8) Nausea and vomiting Qualifiers: Vomiting type: unspecified Vomiting Intractability: non-intractable Qualified Code(s): R11.2 - Nausea with vomiting, unspecified Is this a current diagnosis for this admission?: Yes Plan: Improved. Due to antral gastritis per EGD. (9) Type 2 diabetes mellitus Qualifiers: Diabetes mellitus complication status: with kidney complications Diabetes mellitus complication detail: with chronic kidney disease Diabetes mellitus residential insulin use: with residential use Chronic kidney disease stage: stage 3 (moderate) Qualified Code(s): E11.22 - Type 2 diabetes mellitus with diabetic chronic kidney disease; N18.3 - Chronic kidney disease, stage 3 ( moderate); N18.3 - Chronic kidney disease, stage 3 (moderate); Z79.4 - intermediate (current) use of insulin; Z79.4 - intermediate (current) use of insulin; Z79.4 - long term care phlebotomist (current) use of insulin; Z79.4 - long term care phlebotomist (current) use of insulin Is this a current diagnosis for this admission?: Yes (10) Lumbar radiculopathy Is this a current diagnosis for this admission?: Yes - Notes Notes: From nephrology standpoint I think patient can go home tomorrow. Continue all current medications as stated above. I will be happy to see her for follow-up in the next 2-3 weeks with repeat basic metabolic panel. I will sign off at this point. - Time Time with patient: 15-25 minutes
[2017-11-12] MEDS ORDERED: DOCUSATE SODIUM 100 MG CAPSULE PO ONE (19:30)
[2017-11-12] MEDS ORDERED: POLYETHYLENE GLYCOL 3350 POWDER 17 GM/1 PACKET PO ONE (19:30)
--- NOTE | 2017-11-12 20:49 | PDOC PROGRESS REPORT ---
Subjective Progress Note for:: 11/12/17 Subjective:: She was seen by the bedside, she seems to be doing relatively well, she will be discharged home tomorrow Reason For Visit: HYPERTENSIVE EMERGENCY, CKD, STAGE 3, T2DM Physical Exam Vital Signs: Temp Pulse Resp BP Pulse Ox 98.3 F 69 16 162/62 H 96 11/12/17 15:44 11/12/17 19:00 11/12/17 15:44 11/12/17 15:44 11/12/17 15:44 Intake & Output 11/11/17 11/12/17 11/13/17 06:59 06:59 06:59 Intake Total 1430 1750 889 Output Total 3200 2700 501 Balance -1770 -950 388 Weight 95.8 kg 94.9 kg General appearance: PRESENT: no acute distress Respiratory exam: PRESENT: clear to auscultation jeanette Cardiovascular exam: PRESENT: +S1, +S2 GI/Abdominal exam: PRESENT: soft Neurological exam: PRESENT: alert Results Laboratory Results: 11/12/17 10:03 11/12/17 10:03 11/12/17 11/12/17 10:03 10:03 WBC 8.9 RBC 3.99 Hgb 10.1 L Hct 29.7 L MCV 75 L MCH 25.4 L MCHC 34.1 RDW 15.1 H Plt Count 223 Seg Neutrophils % 62.1 Lymphocytes % 20.0 Monocytes % 12.3 Eosinophils % 4.9 Basophils % 0.7 Absolute Neutrophils 5.5 Absolute Lymphocytes 1.8 Absolute Monocytes 1.1 Absolute Eosinophils 0.4 Absolute Basophils 0.1 Sodium 133.1 L Potassium 4.7 Chloride 98 Carbon Dioxide 27 Anion Gap 8 BUN 26 H Creatinine 1.90 H Est GFR ( Amer) 32 L Est GFR (Non-Af Amer) 26 L Glucose 197 H Calcium 8.7 Total Bilirubin 0.2 AST 16 ALT 26 Alkaline Phosphatase 109 Total Protein 5.2 L Albumin 2.5 L 11/03/17 11/03/17 11/03/17 08:47 08:47 08:47 Creatine Kinase 75 CK-MB (CK-2) 3.48 Troponin I 0.063 NT-Pro-B Natriuret Pep 2220 H 11/03/17 11/03/17 11/03/17 15:30 15:30 21:24 Creatine Kinase 88 98 CK-MB (CK-2) 4.75 H Troponin I 0.093 NT-Pro-B Natriuret Pep 11/03/17 21:24 Creatine Kinase CK-MB (CK-2) 5.38 H Troponin I 0.082 NT-Pro-B Natriuret Pep Impressions: Abdomen Ultrasound 11/03/17 00:00 IMPRESSION: LIMITED STUDY. FATTY INFILTRATION OF THE LIVER. NO OTHER SIGNIFICANT FINDINGS. Chest X-Ray 11/03/17 03:41 IMPRESSION: 1. No acute pulmonary process identified. Abdomen/Pelvis CT 11/03/17 04:48 IMPRESSION: 1. No acute inflammatory or obstructive abnormality identified. This exam was performed according to our departmental dose-optimization program, which includes automated exposure control, adjustment of the mA and/or kV according to patient size and/or use of iterative reconstruction technique. Assessment & Plan - Diagnosis (1) Hypertensive emergency Is this a current diagnosis for this admission?: Yes (2) Epigastric pain Is this a current diagnosis for this admission?: Yes (3) Type 2 diabetes mellitus Qualifiers: Diabetes mellitus complication status: with kidney complications Diabetes mellitus complication detail: with chronic kidney disease Diabetes mellitus laborer marine terminal insulin use: with assisted use Chronic kidney disease stage: stage 3 (moderate) Qualified Code(s): E11.22 - Type 2 diabetes mellitus with diabetic chronic kidney disease; N18.3 - Chronic kidney disease, stage 3 ( moderate); N18.3 - Chronic kidney disease, stage 3 (moderate); Z79.4 - snf (current) use of insulin; Z79.4 - laborer marine terminal (current) use of insulin; Z79.4 - laborer marine terminal (current) use of insulin; Z79.4 - snf (current) use of insulin Is this a current diagnosis for this admission?: Yes (4) Nephrotic range proteinuria Is this a current diagnosis for this admission?: Yes (5) Lumbar radiculopathy Is this a current diagnosis for this admission?: Yes (6) Acute kidney injury Is this a current diagnosis for this admission?: Yes (7) Secondary hyperparathyroidism (of renal origin) Is this a current diagnosis for this admission?: Yes (8) Acute renal tubular necrosis Is this a current diagnosis for this admission?: Yes
[2017-11-12] MEDS: ATORVASTATIN CALCIUM 80 MG TABLET PO SCH (21:47)
[2017-11-12] MEDS ORDERED: BISACODYL 10 MG SUPP.RECT PR ONE (23:00)
[2017-11-13] MEDS: AMPICILLIN TRIHYD 500 MG CAPSULE PO SCH ×3 (05:34→17:36)
[2017-11-13] MEDS: PREGABALIN 50 MG CAPSULE PO SCH ×2 (05:35→17:34)
[2017-11-13] MEDS: HEPARIN SOD (PORCINE) 5,000 UNIT/ML 1 ML SYRINGE SUBCUT SCH ×3 (05:35→21:34)
[2017-11-13 06:35] LABS: ABSOLUTE BASOPHILS # (AUTO) 0.1 10^3/uL (0.0-0.2); ABSOLUTE EOSINOPHILS # (AUTO) 0.4 10^3/uL (0.0-0.6); ABSOLUTE LYMPHOCYTES (AUTO) 1.9 10^3/uL (0.5-4.7); ABSOLUTE MONOCYTES (AUTO) 1.2 10^3/uL (0.1-1.4); ABSOLUTE NEUT (AUTO) 8.9 10^3/uL (1.7-8.2); BASOPHILS % (AUTO) 0.6 % (0-2); EOSINOPHILS % (AUTO) 3.5 % (0-6); HEMATOCRIT 30.8 % (36.0-47.0); HEMOGLOBIN 10.4 g/dL (12.0-15.5); LYMPHOCYTES % (AUTO) 15.3 % (13-45); MEAN CORPUSCULAR HEMOGLOBIN 25.4 pg (27.0-33.4); MEAN CORPUSCULAR HGB CONC 33.7 g/dL (32.0-36.0); MEAN CORPUSCULAR VOLUME 75 fl (80-97); MONOCYTES % (AUTO) 9.4 % (3-13); PLATELET COUNT 248 10^3/uL (150-450); SEGMENTED NEUTROPHILS % (AUTO) 71.2 % (42-78); TOTAL CELLS COUNTED % (AUTO) 100 %; WHITE BLOOD COUNT 12.5 10^3/uL (4.0-10.5)
[2017-11-13 06:51] LABS: ALANINE AMINOTRANSFERASE 19 U/L (9-52); ALKALINE PHOSPHATASE 118 U/L (38-126); ANION GAP 9 (5-19); ASPARTATE AMINO TRANSFERASE 22 U/L (14-36); BILIRUBIN,DIRECT 0.1 mg/dL (0.0-0.4); BILIRUBIN,TOTAL 0.2 mg/dL (0.2-1.3); BLOOD UREA NITROGEN 26 mg/dL (7-20); CALCIUM 8.8 mg/dL (8.4-10.2); CARBON DIOXIDE 27 mmol/L (22-30); CHLORIDE 100 mmol/L (98-107); GLUCOSE 120 mg/dL (75-110); POTASSIUM 4.9 mmol/L (3.6-5.0); SODIUM 135.7 mmol/L (137-145); TOTAL PROTEIN 5.7 g/dL (6.3-8.2)
[2017-11-13] MEDS ORDERED: POLYETHYLENE GLYCOL 3350 POWDER 17 GM/1 PACKET PO SCH (10:00)
[2017-11-13] MEDS ORDERED: DOCUSATE SODIUM 100 MG CAPSULE PO SCH (10:00)
[2017-11-13] MEDS: CLONIDINE HCL 0.2 MG TABLET PO SCH ×2 (10:22→21:34)
[2017-11-13] MEDS: CALCITRIOL 0.25 MCG CAPSULE PO SCH (10:22)
[2017-11-13] MEDS: METOPROLOL TARTRATE 50 MG TABLET PO SCH ×2 (10:24→21:34)
[2017-11-13] MEDS: ASPIRIN 81 MG TABLET, ENT COATED PO SCH (10:24)
[2017-11-13] MEDS: INSULIN GLARGINE,HUM.REC.ANLOG 300 UNIT/3 ML INSULN.PEN SUBCUT SCH (10:24)
[2017-11-13] MEDS: FUROSEMIDE 40 MG TABLET PO SCH (10:24)
[2017-11-13] MEDS: AMLODIPINE BESYLATE 5 MG TABLET PO SCH ×2 (10:25→21:34)
[2017-11-13] MEDS ORDERED: CALCITRIOL 0.25 MCG CAPSULE PO ONE (11:00)
[2017-11-13] MEDS: INSULIN LISPRO 100 UNIT/ML 3 ML VIAL SUBCUT PRN ×2 (12:30→17:34)
[2017-11-13] MEDS: HYDROCODONE/ACETAMINOPHEN 10-325 MG TABLET PO PRN (17:34)
[2017-11-13] MEDS: BENZOCAINE/MENTHOL SORE THROAT LOZENGE BUCCAL PRN (17:34)
[2017-11-13] MEDS ORDERED: VALSARTAN 160 MG TABLET PO ONE (18:00)
[2017-11-13 20:58] VITALS: BP 136/61
[2017-11-13] MEDS: ATORVASTATIN CALCIUM 80 MG TABLET PO SCH (21:34)
--- NOTE | 2017-11-13 21:41 | PDOC DISCHARGE SUMMARY ---
General - Admit/Disc Date/PCP Admission Date/Primary Care Provider: 11/03/17 06:45 QUINCY ALEJO MD Discharge Date: 11/13/17 - Discharge Diagnosis (1) Hypertensive emergency Is this a current diagnosis for this admission?: Yes (2) Epigastric pain Is this a current diagnosis for this admission?: Yes (3) Type 2 diabetes mellitus Is this a current diagnosis for this admission?: Yes (4) Nephrotic range proteinuria Is this a current diagnosis for this admission?: Yes (5) Lumbar radiculopathy Is this a current diagnosis for this admission?: Yes (6) Acute kidney injury Is this a current diagnosis for this admission?: Yes (7) Secondary hyperparathyroidism (of renal origin) Is this a current diagnosis for this admission?: Yes (8) Acute renal tubular necrosis Is this a current diagnosis for this admission?: Yes - Additional Information Resuscitation Status: Full Code Discharge Diet: Cardiac Discharge Activity: Activity As Tolerated Prescriptions: RX: Calcitriol [Rocaltrol 0.25 mcg Capsule] 0.25 mcg PO DAILY #90 capsule RX: Ergocalciferol (Vitamin D2) [Drisdol 50,000 unit (1.25MG) Capsule] 50,000 unit PO [id number] #12 capsule Home Medications: RX: Aspirin [Ecotrin 81 mg EC Tablet] 81 mg PO DAILY 11/03/17 RX: Atorvastatin Calcium [Lipitor 80 mg Tablet] 80 mg PO QHS 11/03/17 RX: Clonidine HCl [Catapres 0.2 mg Tablet] 0.3 mg PO Q12 11/03/17 RX: Furosemide [Lasix 40 mg Tablet] 40 mg PO DAILY 11/03/17 RX: Metoprolol Tartrate [Lopressor 100 mg Tablet] 100 mg PO Q12 11/03/17 RX: Valsartan/Hydrochlorothiazide [Valsartan-Hctz 320-25 mg Tab] 1 tab PO DAILY 11/03/17 RX: Calcitriol [Rocaltrol 0.25 mcg Capsule] 0.25 mcg PO DAILY #90 capsule RX: Ergocalciferol (Vitamin D2) [Drisdol 50,000 unit (1.25MG) Capsule] 50,000 unit PO [id number] #12 capsule 11/13/17 History of Present Illness History of Present Illness: YG METZ is a 71 year old female, she came to the emergency room for evaluation of epigastric pain, nausea ,. She was evaluated in the emergency room vomiting a CAT scan of the abdomen and pelvis with no contrast was ordered it was negative, ultrasound of the upper abdomen was negative. The blood pressure was severely elevated in the emergency hypertensive range. She had a history of diabetes mellitus complicated with retinopathy, nephropathy, with nephrotic range proteinuria. Hospital Course Hospital Course: She presented to the emergency room for evaluation of epigastric pain, she was found to have hypertensive emergency, she was admitted into the hospital and started on Cardene infusion for the control of the blood pressure, this was complicated with acute kidney injury thought to be due to acute tubal necrosis. She was seen by nephrology Dr. Munroe, the fluctuation in the blood pressure was felt to be the etiology of the acute kidney injury. She was seen by Dr. Singh, she underwent EGD which was normal, part of the evaluation of the epigastric pain also involved a CAT scan of the abdomen and pelvis without contrast, this was negative for an acute pathology. Physical Exam Vital Signs: Temp Pulse Resp BP Pulse Ox 98.6 F 64 16 136/61 H 97 11/13/17 20:06 11/13/17 20:06 11/13/17 20:06 11/13/17 20:06 11/13/17 20:06 Intake & Output 11/12/17 11/13/17 11/14/17 06:59 06:59 06:59 Intake Total 5737 177 6698 Output Total 2700 501 Balance -694 346 4117 Weight 94.9 kg 95 kg General appearance: PRESENT: no acute distress, well-developed, well-nourished Head exam: PRESENT: atraumatic, normocephalic Eye exam: PRESENT: conjunctiva pink, EOMI, PERRLA Ear exam: PRESENT: normal external ear exam Mouth exam: PRESENT: moist, tongue midline Neck exam: PRESENT: full ROM Respiratory exam: PRESENT: clear to auscultation jeanette Cardiovascular exam: PRESENT: RRR, +S1, +S2 Pulses: PRESENT: normal dorsalis pedis pul, +2 pedal pulses bilateral Vascular exam: PRESENT: normal capillary refill GI/Abdominal exam: PRESENT: normal bowel sounds, soft Rectal exam: PRESENT: deferred Neurological exam: PRESENT: alert. ABSENT: motor sensory deficit Psychiatric exam: PRESENT: appropriate affect, normal mood Skin exam: PRESENT: dry, intact, warm Results Laboratory Results: 11/13/17 05:25 11/13/17 05:25 11/13/17 11/13/17 05:25 05:25 WBC 12.5 H RBC 4.10 Hgb 10.4 L Hct 30.8 L MCV 75 L MCH 25.4 L MCHC 33.7 RDW 15.0 H Plt Count 248 Seg Neutrophils % 71.2 Lymphocytes % 15.3 Monocytes % 9.4 Eosinophils % 3.5 Basophils % 0.6 Absolute Neutrophils 8.9 H Absolute Lymphocytes 1.9 Absolute Monocytes 1.2 Absolute Eosinophils 0.4 Absolute Basophils 0.1 Sodium 135.7 L Potassium 4.9 Chloride 100 Carbon Dioxide 27 Anion Gap 9 BUN 26 H Creatinine 1.80 H Est GFR ( Amer) 34 L Est GFR (Non-Af Amer) 28 L Glucose 120 H Calcium 8.8 Total Bilirubin 0.2 AST 22 ALT 19 Alkaline Phosphatase 118 Total Protein 5.7 L Albumin 3.0 L 11/03/17 11/03/17 11/03/17 08:47 08:47 08:47 Creatine Kinase 75 CK-MB (CK-2) 3.48 Troponin I 0.063 NT-Pro-B Natriuret Pep 2220 H 11/03/17 11/03/17 11/03/17 15:30 15:30 21:24 Creatine Kinase 88 98 CK-MB (CK-2) 4.75 H Troponin I 0.093 NT-Pro-B Natriuret Pep 11/03/17 21:24 Creatine Kinase CK-MB (CK-2) 5.38 H Troponin I 0.082 NT-Pro-B Natriuret Pep Impressions: Abdomen Ultrasound 11/03/17 00:00 IMPRESSION: LIMITED STUDY. FATTY INFILTRATION OF THE LIVER. NO OTHER SIGNIFICANT FINDINGS. Chest X-Ray 11/03/17 03:41 IMPRESSION: 1. No acute pulmonary process identified. Abdomen/Pelvis CT 11/03/17 04:48 IMPRESSION: 1. No acute inflammatory or obstructive abnormality identified. This exam was performed according to our departmental dose-optimization program, which includes automated exposure control, adjustment of the mA and/or kV according to patient size and/or use of iterative reconstruction technique. Qualifiers - * PATEINT BEING DISCHARGED WITH ANY OF THE FOLLOWING DIAGNOSIS?: No VTE patient discharged on overlapping Therapy?: No
[2017-11-14] MEDS ORDERED: VALSARTAN 160 MG TABLET PO SCH (10:00)
[2017-11-15] MEDS ORDERED: CALCITRIOL 0.25 MCG CAPSULE PO SCH (10:00)
== END 2017-11-13 22:40 | disposition home or self-care (01) | DRG 304 ==
LOC: ER 03:20 → EH 06:45 → ICU 09:02 → 3N 11-05 20:05 → 3S 11-11 18:00
PROVIDERS: ADMIT Internal Medicine; ATTEND Internal Medicine
PROC: 0DB68ZX Excision of Stomach, Via Natural or Artificial Opening Endoscopic, Diagnostic (ICD-10-PCS; principal; 2017-11-06 16:30)
PROC: 3E0234Z Introduction of Serum, Toxoid and Vaccine into Muscle, Percutaneous Approach (ICD-10-PCS; 2017-11-13)
DX: I16.1 Hypertensive emergency (principal); N17.0 Acute kidney failure with tubular necrosis; N25.81 Secondary hyperparathyroidism of renal origin; N39.0 Urinary tract infection, site not specified; E87.1 Hypo-osmolality and hyponatremia; I12.9 Hypertensive chronic kidney disease with stage 1 through stage 4 chronic kidney disease, or unspecified chronic kidney disease; N18.3 Chronic kidney disease, stage 3 (moderate); E11.22 Type 2 diabetes mellitus with diabetic chronic kidney disease; M54.16 Radiculopathy, lumbar region; E11.319 Type 2 diabetes mellitus with unspecified diabetic retinopathy without macular edema; I25.10 Atherosclerotic heart disease of native coronary artery without angina pectoris; E78.5 Hyperlipidemia, unspecified; K76.0 Fatty (change of) liver, not elsewhere classified; K21.9 Gastro-esophageal reflux disease without esophagitis; K29.70 Gastritis, unspecified, without bleeding; B95.2 Enterococcus as the cause of diseases classified elsewhere; E66.01 Morbid (severe) obesity due to excess calories; Z23 Encounter for immunization; Z79.82 Long term (current) use of aspirin; Z79.4 Long term (current) use of insulin; Z68.37 Body mass index [BMI] 37.0-37.9, adult; Z79.899 Other long term (current) drug therapy; Z85.038 Personal history of other malignant neoplasm of large intestine; Z90.49 Acquired absence of other specified parts of digestive tract; Z90.710 Acquired absence of both cervix and uterus; Z88.6 Allergy status to analgesic agent; Z95.5 Presence of coronary angioplasty implant and graft; Z83.3 Family history of diabetes mellitus; Z82.49 Family history of ischemic heart disease and other diseases of the circulatory system
CPT/HCPCS: 36415; 43239; 51701; 71045; 74176; 76705; 80048; 80053; 80061; 80076; 81001; 82140; 82150; 82550; 82553; 82570; 82962; 83036; 83605; 83690; 83735; 83880; 83970; 84100; 84156; 84300; 84439; 84443; 84484; 85025; 85610; 85730; 87040; 87086; 87088; 87186; 88305; 88342; 90686; 93005; 93010; 96374; 96375; 99285; A9270-GY; J0171; J1170; J1610; J1644; J1815; J1956; J2250; J2310; J2405; J3010; J3480; J3490; J7040; S0119; S0164

== ENCOUNTER 2017-12-12 19:53 | Inpatient (IN) | payer MEDICARE ==
--- NOTE | 2017-12-12 20:13 | ER Document Report ---
ED Medical Screen (RME) - General Chief Complaint: Nausea/Vomiting Stated Complaint: SHORTNESS OF BREATH Time Seen by Provider: 12/12/17 20:10 Mode of Arrival: Ambulatory Information source: Patient Notes: pt states sudden onset tonight of sob, vomiting. denies any acute pain. TRAVEL OUTSIDE OF THE [place] IN LAST 30 DAYS: No - Related Data Allergies/Adverse Reactions: codeine [Codeine] Allergy (Mild, Verified 12/12/17 20:07) meperidine HCl [From Demerol] Allergy (Mild, Verified 12/12/17 20:07) morphine Allergy (Verified 12/12/17 20:07) Past Medical History - Social History Chew tobacco use (# tins/day): No Frequency of alcohol use: None Drug Abuse: None - Past Medical History Cardiac Medical History: Reports: Hx Coronary Artery Disease, Hx Hypercholesterolemia, Hx Hypertension Neurological Medical History: Denies: Hx Seizures Endocrine Medical History: Reports: Hx Diabetes Mellitus Type 1, Hx Diabetes Mellitus Type 2 - Diagnosed about 12 years ago Renal/ Medical History: Reports: Hx Ovarian Cysts. Denies: Hx Peritoneal Dialysis Malignancy Medical History: Reports: Hx Colorectal Cancer - Status post colon resection. Musculoskeltal Medical History: Reports Hx Arthritis Psychiatric Medical History: Denies: Hx Depression Past Surgical History: Reports: Hx Cardiac Catheterization - stents x 2, Hx Gynecologic Surgery, Hx Tubal Ligation, Other - Colon resection. Denies: Hx Hysterectomy - Immunizations Immunizations up to date: Yes Hx Diphtheria, Pertussis, Tetanus Vaccination: Yes History of Influenza Vaccine for 06/2017 - 11/2017 Season: No Physical Exam - Vital signs Vitals: Temp Pulse Resp BP Pulse Ox 97.9 F 97 20 223/111 H 97 12/12/17 20:03 12/12/17 20:03 12/12/17 20:03 12/12/17 20:03 12/12/17 20:03 Course - Vital Signs Vital signs: Temp Pulse Resp BP Pulse Ox 97.9 F 97 20 223/111 H 97 12/12/17 20:03 12/12/17 20:03 12/12/17 20:03 12/12/17 20:03 12/12/17 20:03
--- NOTE | 2017-12-12 20:53 | RADIOLOGY REPORT (SQ) ---
EXAM DESCRIPTION: CHEST PA/LAT COMPLETED DATE/TIME: 12/12/2017 8:41 pm REASON FOR STUDY: sob COMPARISON: 12/11/2016 EXAM PARAMETERS: NUMBER OF VIEWS: two views TECHNIQUE: Digital Frontal and Lateral radiographic views of the chest acquired. RADIATION DOSE: NA LIMITATIONS: none FINDINGS: LUNGS AND PLEURA: No opacities, masses or pneumothorax. No pleural effusion. MEDIASTINUM AND HILAR STRUCTURES: No masses or contour abnormalities. HEART AND VASCULAR STRUCTURES: Heart normal size. No evidence for failure. BONES: No acute findings. HARDWARE: None in the chest. OTHER: No other significant finding. IMPRESSION: NO SIGNIFICANT RADIOGRAPHIC FINDING IN THE CHEST. TECHNICAL DOCUMENTATION: JOB ID: [id number] [employer]- All Rights Reserved Reading location - IP/workstation name: [email or web address]
--- NOTE | 2017-12-12 21:58 | ER Document Report ---
ED General - General Chief Complaint: Nausea/Vomiting Stated Complaint: SHORTNESS OF BREATH Time Seen by Provider: 12/12/17 20:10 Mode of Arrival: Ambulatory Notes: Patient is a 72-year-old female presents with complaint of vomiting. Vomiting started today. She denies any pain associated with this other than her chronic back pain which is unchanged from her baseline. She denies chest pain. She denies abdominal pain. She said she did feel short of breath earlier but that has since resolved. She denies any headache. She denies any dysuria. She denies recent fevers or infections. She does have a history of recurrent hypertension. She was recently admitted to the hospital for this. Patient does not know the names of most medications. She says she only takes medications in the morning and has no medications that she takes at night. This is contradictory to what her discharge summary says as that has her prescriptions listed as some of her medications as every 12 hours including her metoprolol as well as her clonidine. She has no other complaints at this time. She denies any focal weakness or numbness. TRAVEL OUTSIDE OF THE [place] IN LAST 30 DAYS: No - Related Data Allergies/Adverse Reactions: codeine [Codeine] Allergy (Mild, Verified 12/12/17 20:07) meperidine HCl [From Demerol] Allergy (Mild, Verified 12/12/17 20:07) morphine Allergy (Verified 12/12/17 20:07) Past Medical History - General Information source: Patient - Social History Smoking Status: Never Smoker Chew tobacco use (# tins/day): No Frequency of alcohol use: None Drug Abuse: None Family History: Reviewed & Not Pertinent, CAD Patient has suicidal ideation: No Patient has homicidal ideation: No - Past Medical History Cardiac Medical History: Reports: Hx Coronary Artery Disease, Hx Hypercholesterolemia, Hx Hypertension Neurological Medical History: Denies: Hx Seizures Endocrine Medical History: Reports: Hx Diabetes Mellitus Type 1, Hx Diabetes Mellitus Type 2 - Diagnosed about 12 years ago Renal/ Medical History: Reports: Hx Ovarian Cysts. Denies: Hx Peritoneal Dialysis Malignancy Medical History: Reports: Hx Colorectal Cancer - Status post colon resection. Musculoskeltal Medical History: Reports Hx Arthritis Psychiatric Medical History: Denies: Hx Depression Past Surgical History: Reports: Hx Cardiac Catheterization - stents x 2, Hx Gynecologic Surgery, Hx Tubal Ligation, Other - Colon resection. Denies: Hx Hysterectomy - Immunizations Immunizations up to date: Yes Hx Diphtheria, Pertussis, Tetanus Vaccination: Yes Review of Systems - Review of Systems Notes: My Normal Review Basic REVIEW OF SYSTEMS: CONSTITUTIONAL : Denies fever, chills, or sweats. Denies recent illness. EENT: Denies eye, ear, throat, or mouth pain or symptoms. Denies nasal or sinus congestion. CARDIOVASCULAR: Denies chest pain. RESPIRATORY: Denies cough, cold, or chest congestion. Denies shortness of breath, difficulty breathing, or wheezing. GASTROINTESTINAL: Denies abdominal pain. Some vomiting. MUSCULOSKELETAL: Denies neck or back pain or joint pain or swelling. SKIN: Denies rash or skin lesions. NEUROLOGICAL: Denies altered mental status or loss of consciousness. Denies headache. Denies weakness or paralysis or loss of use of either side. Denies problems with gait or speech. Denies sensory or motor loss. ALL OTHER SYSTEMS REVIEWED AND NEGATIVE. Physical Exam - Vital signs Vitals: Temp Pulse Resp BP Pulse Ox 97.9 F 97 20 223/111 H 97 12/12/17 20:03 12/12/17 20:03 12/12/17 20:03 12/12/17 20:03 12/12/17 20:03 - Notes Notes: General Appearance: Well nourished, alert, cooperative, no acute distress, no obvious discomfort. Well-appearing. Vitals: reviewed, See vital signs table. Head: no swelling or tenderness to the head Eyes: PERRL, EOMI, Conjuctiva clear Mouth: No decreasd moisture Neck: Supple Lungs: No wheezing, No rales, No rhonci, No accessory muscle use, good air exchange bilaterally. Heart: Normal rate, Regular rythm, No murmur, no rub Abdomen: Normal BS, soft, No rigidity, No abdominal tenderness, No guarding, no rebound, Extremities: strength 5/5 in all extremities, good pulses in all extremities, no swelling or tenderness in the extremities, no edema. Skin: warm, dry, appropriate color, no rash Neuro: speech clear, oriented x 3, normal affect, responds appropriately to questions. Cranial nerves II through XII are intact. Distal sensation intact. Patient moves all extremities without difficulty. Course - Re-evaluation Re-evalutation: 12/12/17 22:23 Patient says that she has been taking her blood pressure medications. She says she only takes in the morning. According to her recent discharge summary she is supposed to take metoprolol and clonidine twice a day. She denies taking medications in the evening. I will give her a dose of her 100 mg metoprolol as it is prescribed according to her discharge summary. I am still awaiting her lab results. 12/13/17 00:12 Despite giving her the metoprolol her blood pressure is actually increased. His systolic is now 242. I will place on a Cardene drip. 12/13/17 00:26 Patient says her nausea and vomiting is much improved. Her blood pressure unfortunately is elevated requiring a Cardene drip. I did speak with Dr. Hatch agrees to admit the patient for hypertensive urgency. She has no other signs of endorgan damage. Her troponin is an indeterminate range which is consistent with her history of troponins being indeterminate range during these episodes of hypertension. Her creatinine is actually pretty consistent with her baseline. Has no chest pain. She has no headache. She has no focal weakness or numbness. No signs of stroke. Dictation of this chart was performed using voice recognition software; therefore, there may be some unintended grammatical errors. - Vital Signs Vital signs: Temp Pulse Resp BP Pulse Ox 97.9 F 87 18 242/97 H 97 12/12/17 20:03 12/12/17 21:59 12/13/17 00:01 12/13/17 00:01 12/13/17 00:01 - Laboratory Result Diagrams: 12/12/17 22:00 12/12/17 22:00 Laboratory results interpreted by me: 12/12/17 12/12/17 12/12/17 20:32 22:00 22:00 WBC 11.9 H MCV 76 L MCH 24.9 L RDW 15.4 H Seg Neutrophils % 82.0 H Lymphocytes % 10.0 L Absolute Neutrophils 9.8 H Carbon Dioxide 31 H BUN 37 H Creatinine 1.72 H Est GFR ( Amer) 35 L Est GFR (Non-Af Amer) 29 L Glucose 319 H AST 42 H Alkaline Phosphatase 165 H NT-Pro-B Natriuret Pep Urine Protein >=500 H Urine Glucose (UA) >=500 H Ur Leukocyte Esterase TRACE H 12/12/17 22:00 WBC MCV MCH RDW Seg Neutrophils % Lymphocytes % Absolute Neutrophils Carbon Dioxide BUN Creatinine Est GFR ( Amer) Est GFR (Non-Af Amer) Glucose AST Alkaline Phosphatase NT-Pro-B Natriuret Pep 1540 H Urine Protein Urine Glucose (UA) Ur Leukocyte Esterase - EKG Interpretation by Me Additional EKG results interpreted by me: 12/12/17 21:57 EKG is reviewed and interpreted by me. EKG shows sinus rhythm with rate of [address] bpm. Patient has slight ST segment elevation in anterior leads with depression in the lateral leads. This is unchanged in comparison to her old EKG from November 03, 2017. This is consistent with changes most likely related to left ventricular hypertrophy. MA interval is within normal range. QRS duration QTc intervals are prolonged. Discharge - Discharge Clinical Impression: Hypertensive urgency, Chronic kidney disease, stage III (moderate) Vomiting Qualifiers: Vomiting type: unspecified Vomiting Intractability: unspecified Nausea presence : with nausea Qualified Code(s): R11.2 - Nausea with vomiting, unspecified Condition: Stable Disposition: ADMITTED INPATIENT Admitting Provider: [facility] Unit Admitted: ICU
[2017-12-12 22:10] LABS: APPEARANCE,URINE SLIGHTLY-CLOUDY; BILIRUBIN,URINE NEGATIVE (NEGATIVE); COLOR,URINE STRAW; GLUCOSE, URINE >=500 mg/dL (NEGATIVE); KETONES,URINE NEGATIVE (NEGATIVE); LEUKOCYTE ESTERASE,URINE TRACE (NEGATIVE); NITRITE,URINE NEGATIVE (NEGATIVE); PROTEIN,URINE >=500 mg/dL (NEGATIVE); URINE SPECIFIC GRAVITY 1.009; UROBILINOGEN,URINE NEGATIVE mg/dL (<2.0)
[2017-12-12 22:11] LABS: ABSOLUTE BASOPHILS # (AUTO) 0.1 10^3/uL (0.0-0.2); ABSOLUTE EOSINOPHILS # (AUTO) 0.1 10^3/uL (0.0-0.6); ABSOLUTE LYMPHOCYTES (AUTO) 1.2 10^3/uL (0.5-4.7); ABSOLUTE MONOCYTES (AUTO) 0.7 10^3/uL (0.1-1.4); ABSOLUTE NEUT (AUTO) 9.8 10^3/uL (1.7-8.2); BASOPHILS % (AUTO) 0.7 % (0-2); EOSINOPHILS % (AUTO) 1.2 % (0-6); HEMATOCRIT 36.8 % (36.0-47.0); HEMOGLOBIN 12.1 g/dL (12.0-15.5); MEAN CORPUSCULAR HEMOGLOBIN 24.9 pg (27.0-33.4); MEAN CORPUSCULAR HGB CONC 32.7 g/dL (32.0-36.0); MEAN CORPUSCULAR VOLUME 76 fl (80-97); MONOCYTES % (AUTO) 6.1 % (3-13); PLATELET COUNT 303 10^3/uL (150-450); RED BLOOD COUNT 4.85 10^6/uL (3.72-5.28); RED CELL DISTRIBUTION WIDTH 15.4 % (11.5-14.0); TOTAL CELLS COUNTED % (AUTO) 100 %; WHITE BLOOD COUNT 11.9 10^3/uL (4.0-10.5)
[2017-12-12] MEDS ORDERED: METOPROLOL TARTRATE 100 MG TABLET PO ONE (22:12)
[2017-12-12] MEDS ORDERED: ONDANSETRON HCL INJ/PF 4 MG/2 ML SDV IV ONE (22:13)
[2017-12-12 22:30] LABS: ALANINE AMINOTRANSFERASE 24 U/L (9-52); ALBUMIN 3.8 g/dL (3.5-5.0); ALKALINE PHOSPHATASE 165 U/L (38-126); ANION GAP 11 (5-19); ASPARTATE AMINO TRANSFERASE 42 U/L (14-36); BILIRUBIN,DIRECT 0.2 mg/dL (0.0-0.4); BILIRUBIN,TOTAL 0.3 mg/dL (0.2-1.3); BLOOD UREA NITROGEN 37 mg/dL (7-20); CALCIUM 9.6 mg/dL (8.4-10.2); CARBON DIOXIDE 31 mmol/L (22-30); CHLORIDE 99 mmol/L (98-107); GLUCOSE 319 mg/dL (75-110); POTASSIUM 4.2 mmol/L (3.6-5.0); SODIUM 140.5 mmol/L (137-145); TOTAL PROTEIN 7.4 g/dL (6.3-8.2)
[2017-12-12 22:50] LABS: TROPONIN I 0.079 ng/mL
--- NOTE | 2017-12-12 23:04 | EKG REPORT ---
SEVERITY:- ABNORMAL ECG - SINUS RHYTHM LVH WITH IVCD, LAD AND SECONDARY REPOL ABNRM : Confirmed by: Kezia Mensah 12-Dec-2017 23:04:08
[2017-12-13] MEDS: NICARDIPINE HCL RTU, ISO-OS 20 MG/200 ML RTUINJ IV PRN ×5 (00:28→17:59)
[2017-12-13] MEDS ORDERED: DEXTROSE 50%-WATER 25 GM/50 ML DISP.SYRIN IV PRN ×2 (00:43)
[2017-12-13] MEDS ORDERED: GLUCAGON,HUMAN RECOMB 1 MG INJ IM PRN (00:43)
[2017-12-13] MEDS ORDERED: DEXTROSE 40% GEL 15 GM TUBE PO PRN ×2 (00:43)
[2017-12-13] MEDS ORDERED: ONDANSETRON 4 MG TAB.RAPDIS PO ONE (00:45)
[2017-12-13] MEDS ORDERED: ASPIRIN 81 MG TABLET, ENT COATED PO ONE ×2 (01:00→20:00)
[2017-12-13] MEDS ORDERED: CALCITRIOL 0.25 MCG CAPSULE PO ONE ×2 (01:00→20:00)
[2017-12-13] MEDS ORDERED: CLONIDINE HCL 0.2 MG TABLET PO ONE (01:00)
[2017-12-13] MEDS ORDERED: METOPROLOL TARTRATE 100 MG TABLET PO ONE ×2 (01:00→20:30)
[2017-12-13] MEDS ORDERED: ATORVASTATIN CALCIUM 80 MG TABLET PO ONE (01:00)
[2017-12-13 01:20] LABS: PHOSPHORUS 3.7 mg/dL (2.5-4.5)
[2017-12-13 01:28] LABS: CHOLESTEROL 228.93 mg/dL (0-200); TRIGLYCERIDES 160 mg/dL (<150)
[2017-12-13 01:39] LABS: DIRECT LDL 106 mg/dL (<100)
[2017-12-13] MEDS: INSULIN LISPRO 100 UNIT/ML 3 ML VIAL SUBCUT PRN ×3 (04:08→23:26)
[2017-12-13] MEDS ORDERED: INFLUENZA ADLT QUAD (36MOS+) 2017-18 VAC 0.5 ML SYR IM PRN (05:13)
[2017-12-13] MEDS: HEPARIN SOD (PORCINE) 5,000 UNIT/ML 1 ML SYRINGE SUBCUT SCH ×3 (05:57→23:26)
[2017-12-13] MEDS: ONDANSETRON HCL INJ/PF 4 MG/2 ML SDV IV PRN ×3 (05:57→23:30)
[2017-12-13 08:07] LABS: ABSOLUTE BASOPHILS # (AUTO) 0.1 10^3/uL (0.0-0.2); ABSOLUTE EOSINOPHILS # (AUTO) 0.1 10^3/uL (0.0-0.6); ABSOLUTE LYMPHOCYTES (AUTO) 1.4 10^3/uL (0.5-4.7); ABSOLUTE MONOCYTES (AUTO) 0.8 10^3/uL (0.1-1.4); ABSOLUTE NEUT (AUTO) 10.2 10^3/uL (1.7-8.2); BASOPHILS % (AUTO) 0.7 % (0-2); EOSINOPHILS % (AUTO) 0.7 % (0-6); HEMATOCRIT 37.9 % (36.0-47.0); HEMOGLOBIN 12.5 g/dL (12.0-15.5); LYMPHOCYTES % (AUTO) 10.8 % (13-45); MEAN CORPUSCULAR VOLUME 76 fl (80-97); MONOCYTES % (AUTO) 6.7 % (3-13); PLATELET COUNT 309 10^3/uL (150-450); RED BLOOD COUNT 4.99 10^6/uL (3.72-5.28); RED CELL DISTRIBUTION WIDTH 15.3 % (11.5-14.0); SEGMENTED NEUTROPHILS % (AUTO) 81.1 % (42-78); TOTAL CELLS COUNTED % (AUTO) 100 %; WHITE BLOOD COUNT 12.5 10^3/uL (4.0-10.5)
[2017-12-13 08:24] LABS: ALANINE AMINOTRANSFERASE 26 U/L (9-52); ALBUMIN 3.5 g/dL (3.5-5.0); ALKALINE PHOSPHATASE 139 U/L (38-126); ANION GAP 10 (5-19); ASPARTATE AMINO TRANSFERASE 17 U/L (14-36); BILIRUBIN,DIRECT 0.2 mg/dL (0.0-0.4); BILIRUBIN,TOTAL 0.3 mg/dL (0.2-1.3); BLOOD UREA NITROGEN 34 mg/dL (7-20); CALCIUM 9.4 mg/dL (8.4-10.2); CARBON DIOXIDE 29 mmol/L (22-30); CHLORIDE 100 mmol/L (98-107); GLUCOSE 319 mg/dL (75-110); POTASSIUM 4.4 mmol/L (3.6-5.0); SODIUM 138.8 mmol/L (137-145); TOTAL PROTEIN 6.6 g/dL (6.3-8.2)
[2017-12-13] MEDS: HYDROCHLOROTHIAZIDE 25 MG TABLET PO SCH (09:09)
[2017-12-13] MEDS: VALSARTAN 160 MG TABLET PO SCH (09:10)
[2017-12-13] MEDS: ASPIRIN 81 MG TABLET, ENT COATED PO SCH (09:10)
--- NOTE | 2017-12-13 18:14 | PDOC H&P ---
History of Present Illness Admission Date/PCP: 12/13/17 01:01 QUINCY ALEJO MD History of Present Illness: YG METZ is a 72 year old female, she came to the emergency room for evaluation of nausea and vomiting, she denied any abdominal pain other than her chronic back pain which is unchanged from baseline there was no chest pain, in the emergency room she was found to have severely elevated blood pressure over 200 systolic, the blood pressure could not be controlled to emergency room, she was started on Cardene infusion and ICU admission was advised. She presented in a similar fashion the last time she was admitted, 11/13/2017 when she had epigastric pain with associated vomiting with nausea, on that admission she also had hypertensive emergency, she also was treated with Cardizem infusion, this was complicated with acute kidney injury felt to be secondary to acute tubular necrosis due to wide fluctuations in her blood pressure. She has a history of diabetic nephropathy with nephrotic range proteinuria and stage III chronic kidney disease. The last time she was discharged from the hospital which was on 11/13/2017, she was discharged on metoprolol 100 mg 1 tablet 2 times a day, clonidine 0.3 mg 1 tablet 2 times a day but it seems that she has been taking it once a day. Past Medical History Cardiac Medical History: Reports: Coronary Artery Disease, Hyperlipidema, Hypertension Endocrine Medical History: Reports: Diabetes Mellitus Type 2 Musculoskeltal Medical History: Reports: Arthritis Past Surgical History Past Surgical History: Reports: Cardiac Catheterization - stents x 2, Tubal Ligation, Other - Colon resection Social History Smoking Status: Never Smoker Frequency of Alcohol Use: None Hx Recreational Drug Use: No Drugs: None Hx Prescription Drug Abuse: No - Advance Directive Resuscitation Status: Full Code Family History Family History: Reviewed & Not Pertinent, CAD Parental Family History Reviewed: Yes Children Family History Reviewed: Yes Sibling(s) Family History Reviewed.: Yes Medication/Allergy Home Medications: Aspirin [Aspirin EC] 81 mg PO DAILY 12/13/17 Atorvastatin Calcium [Lipitor 80 mg Tablet] 80 mg PO QHS 12/13/17 Furosemide [Lasix 40 mg Tablet] 40 mg PO DAILY 12/13/17 Gabapentin [Neurontin 300 mg Capsule] 300 mg PO QHS 12/13/17 Metoprolol Tartrate [Lopressor 100 mg Tablet] 100 mg PO Q12 12/13/17 Oxycodone HCl/Acetaminophen [Percocet 5-325 mg Tablet] 1 tab PO BID 12/13/17 Pregabalin [Lyrica 50 mg Capsule] 50 mg PO Q12 12/13/17 RX: Calcitriol [Rocaltrol 0.25 mcg Capsule] 0.25 mg PO DAILY 12/13/17 RX: Ergocalciferol (Vitamin D2) [Drisdol 50,000 unit (1.25MG) Capsule] 50,000 unit PO ROSEN@1000 12/13/17 RX: Omeprazole 20 mg PO DAILY 12/13/17 Valsartan/Hydrochlorothiazide [Diovan Hct 320-25 mg Tablet] 1 tab PO DAILY 12/13 Allergies/Adverse Reactions: codeine [Codeine] Allergy (Mild, Verified 12/12/17 20:07) meperidine HCl [From Demerol] Allergy (Mild, Verified 12/12/17 20:07) morphine Allergy (Verified 12/12/17 20:07) Review of Systems Constitutional: ABSENT: chills, fever(s), headache(s), weight gain, weight loss Eyes: ABSENT: visual disturbances Ears: ABSENT: hearing changes Cardiovascular: ABSENT: chest pain, dyspnea on exertion, edema, orthropnea, palpitations Respiratory: ABSENT: cough, hemoptysis Gastrointestinal: PRESENT: nausea, vomiting Genitourinary: ABSENT: dysuria, hematuria Musculoskeletal: PRESENT: back pain. ABSENT: joint swelling Integumentary: ABSENT: rash, wounds Neurological: ABSENT: abnormal gait, abnormal speech, confusion, dizziness, focal weakness, syncope Psychiatric: ABSENT: anxiety, depression, homidical ideation, suicidal ideation Endocrine: ABSENT: cold intolerance, heat intolerance, menstrual abnormalities, polydipsia, polyuria Hematologic/Lymphatic: ABSENT: easy bleeding, easy bruising, lymphadenopathy Physical Exam Vital Signs: Temp Pulse Resp BP Pulse Ox 98.1 F 78 15 171/84 H 98 12/13/17 16:00 12/13/17 16:00 12/13/17 16:00 12/13/17 16:00 12/13/17 16:00 Intake & Output 12/12/17 12/13/17 12/14/17 06:59 06:59 06:59 Intake Total 288 Output Total 0 850 Balance 288 -850 Weight 90 kg General appearance: PRESENT: no acute distress, well-developed, well-nourished Head exam: PRESENT: atraumatic, normocephalic Eye exam: PRESENT: conjunctiva pink, EOMI, PERRLA Ear exam: PRESENT: normal external ear exam Mouth exam: PRESENT: moist, tongue midline Neck exam: PRESENT: full ROM Respiratory exam: PRESENT: clear to auscultation jeanette Cardiovascular exam: PRESENT: RRR, +S1, +S2 Pulses: PRESENT: normal dorsalis pedis pul, +2 pedal pulses bilateral Vascular exam: PRESENT: normal capillary refill GI/Abdominal exam: PRESENT: normal bowel sounds, soft Rectal exam: PRESENT: deferred Neurological exam: PRESENT: alert, awake, oriented to person, oriented to place , oriented to time, oriented to situation, CN II-XII grossly intact Psychiatric exam: PRESENT: appropriate affect, normal mood Skin exam: PRESENT: dry, intact, warm Results Laboratory Results: 12/13/17 04:00 12/13/17 04:00 12/13/17 12/13/17 04:00 04:00 WBC 12.5 H RBC 4.99 Hgb 12.5 Hct 37.9 MCV 76 L MCH 25.0 L MCHC 33.0 RDW 15.3 H Plt Count 309 Seg Neutrophils % 81.1 H Lymphocytes % 10.8 L Monocytes % 6.7 Eosinophils % 0.7 Basophils % 0.7 Absolute Neutrophils 10.2 H Absolute Lymphocytes 1.4 Absolute Monocytes 0.8 Absolute Eosinophils 0.1 Absolute Basophils 0.1 Sodium 138.8 Potassium 4.4 Chloride 100 Carbon Dioxide 29 Anion Gap 10 BUN 34 H Creatinine 1.52 H Est GFR ( Amer) 41 L Est GFR (Non-Af Amer) 34 L Glucose 319 H Calcium 9.4 Total Bilirubin 0.3 AST 17 ALT 26 Alkaline Phosphatase 139 H Total Protein 6.6 Albumin 3.5 12/13/17 12/13/17 12/13/17 04:00 10:10 16:20 Troponin I 0.084 0.053 0.037 Impressions: Chest X-Ray 12/12/17 20:11 IMPRESSION: NO SIGNIFICANT RADIOGRAPHIC FINDING IN THE CHEST. 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
[2017-12-13] MEDS ORDERED: (PENDING PHARMACY ID) (Valsartan/Hydrochlorothiazide [Diovan Hct 320-25 Mg Tablet] 1 TAB) PO SCH (18:15)
[2017-12-13] MEDS ORDERED: VALSARTAN 160 MG TABLET PO ONE (20:00)
[2017-12-13] MEDS ORDERED: LANSOPRAZOLE 30 MG TAB.RAP.DR PO ONE (20:00)
[2017-12-13] MEDS ORDERED: FUROSEMIDE 40 MG TABLET PO ONE (20:00)
[2017-12-13] MEDS ORDERED: HYDROCHLOROTHIAZIDE 25 MG TABLET PO ONE ×2 (20:00)
[2017-12-13] MEDS ORDERED: OXYCODONE-ACETAMINOPHEN 5-325 MG TABLET PO ONE (20:30)
[2017-12-13] MEDS ORDERED: PREGABALIN 50 MG CAPSULE PO ONE (20:30)
[2017-12-13] MEDS ORDERED: ATORVASTATIN CALCIUM 80 MG TABLET PO SCH (22:00)
[2017-12-13] MEDS: GABAPENTIN 300 MG CAPSULE PO SCH (23:28)
[2017-12-14] MEDS: LANSOPRAZOLE 30 MG TAB.RAP.DR PO SCH ×2 (05:37→17:52)
[2017-12-14] MEDS: HEPARIN SOD (PORCINE) 5,000 UNIT/ML 1 ML SYRINGE SUBCUT SCH ×3 (05:37→21:13)
[2017-12-14 07:18] LABS: ABSOLUTE BASOPHILS # (AUTO) 0.1 10^3/uL (0.0-0.2); ABSOLUTE EOSINOPHILS # (AUTO) 0.1 10^3/uL (0.0-0.6); ABSOLUTE LYMPHOCYTES (AUTO) 1.9 10^3/uL (0.5-4.7); ABSOLUTE MONOCYTES (AUTO) 0.8 10^3/uL (0.1-1.4); ABSOLUTE NEUT (AUTO) 6.6 10^3/uL (1.7-8.2); BASOPHILS % (AUTO) 0.8 % (0-2); EOSINOPHILS % (AUTO) 1.5 % (0-6); HEMATOCRIT 39.3 % (36.0-47.0); LYMPHOCYTES % (AUTO) 19.7 % (13-45); MEAN CORPUSCULAR HEMOGLOBIN 25.1 pg (27.0-33.4); MEAN CORPUSCULAR HGB CONC 33.2 g/dL (32.0-36.0); MEAN CORPUSCULAR VOLUME 76 fl (80-97); PLATELET COUNT 314 10^3/uL (150-450); RED CELL DISTRIBUTION WIDTH 15.2 % (11.5-14.0); TOTAL CELLS COUNTED % (AUTO) 100 %; WHITE BLOOD COUNT 9.4 10^3/uL (4.0-10.5)
[2017-12-14 07:27] LABS: ALANINE AMINOTRANSFERASE 25 U/L (9-52); ALBUMIN 3.8 g/dL (3.5-5.0); ALKALINE PHOSPHATASE 130 U/L (38-126); ANION GAP 10 (5-19); ASPARTATE AMINO TRANSFERASE 25 U/L (14-36); BILIRUBIN,DIRECT 0.2 mg/dL (0.0-0.4); BILIRUBIN,TOTAL 0.3 mg/dL (0.2-1.3); BLOOD UREA NITROGEN 36 mg/dL (7-20); CALCIUM 9.5 mg/dL (8.4-10.2); CARBON DIOXIDE 32 mmol/L (22-30); CHLORIDE 98 mmol/L (98-107); CREATINE KINASE 80 U/L (30-135); GLUCOSE 205 mg/dL (75-110); POTASSIUM 3.8 mmol/L (3.6-5.0); SODIUM 139.5 mmol/L (137-145); TOTAL PROTEIN 7.4 g/dL (6.3-8.2)
[2017-12-14] MEDS: INSULIN LISPRO 100 UNIT/ML 3 ML VIAL SUBCUT PRN ×4 (08:48→22:09)
[2017-12-14] MEDS: CALCITRIOL 0.25 MCG CAPSULE PO SCH (09:49)
[2017-12-14] MEDS: FUROSEMIDE 40 MG TABLET PO SCH (09:50)
[2017-12-14] MEDS: CLONIDINE HCL 0.2 MG TABLET PO SCH ×2 (09:50→21:13)
[2017-12-14] MEDS: ASPIRIN 81 MG TABLET, ENT COATED PO SCH (09:50)
[2017-12-14] MEDS: METOPROLOL TARTRATE 100 MG TABLET PO SCH ×4 (09:50→21:15)
[2017-12-14] MEDS: VALSARTAN 160 MG TABLET PO SCH (09:50)
[2017-12-14] MEDS: HYDROCHLOROTHIAZIDE 25 MG TABLET PO SCH (09:50)
[2017-12-14] MEDS: OXYCODONE-ACETAMINOPHEN 5-325 MG TABLET PO SCH ×2 (09:50→21:13)
[2017-12-14] MEDS: PREGABALIN 50 MG CAPSULE PO SCH ×2 (09:50→21:15)
[2017-12-14] MEDS ORDERED: FUROSEMIDE 40 MG TABLET PO SCH (10:00)
[2017-12-14] MEDS ORDERED: VALSARTAN 160 MG TABLET PO SCH (10:00)
[2017-12-14] MEDS ORDERED: ASPIRIN 81 MG TABLET, ENT COATED PO SCH (10:00)
[2017-12-14] MEDS ORDERED: CALCITRIOL 0.25 MCG CAPSULE PO SCH (10:00)
[2017-12-14] MEDS ORDERED: HYDROCHLOROTHIAZIDE 25 MG TABLET PO SCH (10:00)
[2017-12-14] MEDS: METOCLOPRAMIDE HCL 10 MG TABLET PO SCH ×2 (13:46→17:52)
--- NOTE | 2017-12-14 20:48 | PDOC PROGRESS REPORT ---
Subjective Progress Note for:: 12/14/17 Subjective:: She was seen by the bedside, the upper GI symptoms, nausea vomiting is most likely from gastroparesis from diabetes. She will be started on Reglan for 4 months, it is FDA approved for this condition but not to be used beyond 4 months. The blood pressure is controlled on multiple medication. Reason For Visit: HYPERTENSIVE URGENCY Physical Exam Vital Signs: Temp Pulse Resp BP Pulse Ox 97.6 F 60 16 134/60 H 98 12/14/17 19:56 12/14/17 19:56 12/14/17 19:56 12/14/17 19:56 12/14/17 19:56 Intake & Output 12/13/17 12/14/17 12/15/17 06:59 06:59 06:59 Intake Total 288 926 957 Output Total 0 1350 Balance 288 -424 957 Weight 90 kg 91.2 kg 91.2 kg General appearance: PRESENT: no acute distress, well-developed, well-nourished Head exam: PRESENT: atraumatic, normocephalic Eye exam: PRESENT: conjunctiva pink, EOMI, PERRLA Ear exam: PRESENT: normal external ear exam Mouth exam: PRESENT: moist, tongue midline Neck exam: PRESENT: full ROM Respiratory exam: PRESENT: clear to auscultation jeanette Cardiovascular exam: PRESENT: RRR, +S1, +S2 Pulses: PRESENT: normal dorsalis pedis pul, +2 pedal pulses bilateral Vascular exam: PRESENT: normal capillary refill GI/Abdominal exam: PRESENT: normal bowel sounds, soft Rectal exam: PRESENT: deferred Neurological exam: PRESENT: alert, awake, oriented to person, oriented to place , oriented to time, oriented to situation, CN II-XII grossly intact Psychiatric exam: PRESENT: appropriate affect, normal mood Skin exam: PRESENT: dry, intact, warm. ABSENT: cyanosis, rash Results Laboratory Results: 12/14/17 06:58 12/14/17 06:58 12/14/17 12/14/17 12/14/17 06:58 06:58 06:58 WBC 9.4 RBC 5.20 Hgb 13.0 Hct 39.3 MCV 76 L MCH 25.1 L MCHC 33.2 RDW 15.2 H Plt Count 314 Seg Neutrophils % 70.0 Lymphocytes % 19.7 Monocytes % 8.0 Eosinophils % 1.5 Basophils % 0.8 Absolute Neutrophils 6.6 Absolute Lymphocytes 1.9 Absolute Monocytes 0.8 Absolute Eosinophils 0.1 Absolute Basophils 0.1 Sodium 139.5 Potassium 3.8 Chloride 98 Carbon Dioxide 32 H Anion Gap 10 BUN 36 H Creatinine 1.94 H Est GFR ( Amer) 31 L Est GFR (Non-Af Amer) 25 L Glucose 205 H Calcium 9.5 Total Bilirubin 0.3 AST 25 ALT 25 Alkaline Phosphatase 130 H Total Protein 7.4 Albumin 3.8 TSH 2.41 12/13/17 12/13/17 12/13/17 04:00 10:10 16:20 Creatine Kinase CK-MB (CK-2) Troponin I 0.084 0.053 0.037 12/14/17 12/14/17 06:58 06:58 Creatine Kinase 80 CK-MB (CK-2) 1.11 Troponin I Impressions: Chest X-Ray 12/12/17 20:11 IMPRESSION: NO SIGNIFICANT RADIOGRAPHIC FINDING IN THE CHEST. Assessment & Plan - Diagnosis (1) Hypertensive emergency Is this a current diagnosis for this admission?: Yes (2) Chronic kidney disease, stage III (moderate) Is this a current diagnosis for this admission?: Yes (3) Type 2 diabetes mellitus Qualifiers: Diabetes mellitus exterminator insulin use: with senior living use Diabetes mellitus complication status: with kidney complications Diabetes mellitus complication detail: with chronic kidney disease Chronic kidney disease stage : stage 3 (moderate) Qualified Code(s): E11.22 - Type 2 diabetes mellitus with diabetic chronic kidney disease; N18.3 - Chronic kidney disease, stage 3 ( moderate); N18.3 - Chronic kidney disease, stage 3 (moderate); Z79.4 - intermodal dispatcher (current) use of insulin; Z79.4 - intermodal dispatcher (current) use of insulin; Z79.4 - intermodal dispatcher (current) use of insulin; Z79.4 - long-term (current) use of insulin Is this a current diagnosis for this admission?: Yes (4) Gastroparesis Is this a current diagnosis for this admission?: Yes Plan: Start Reglan, a prokinetic drug, 10 mg 1 tablet 3 times a day
[2017-12-14] MEDS: GABAPENTIN 300 MG CAPSULE PO SCH (21:13)
[2017-12-14] MEDS: ATORVASTATIN CALCIUM 80 MG TABLET PO SCH (21:13)
[2017-12-15] MEDS: HEPARIN SOD (PORCINE) 5,000 UNIT/ML 1 ML SYRINGE SUBCUT SCH ×3 (06:36→22:15)
[2017-12-15] MEDS: LANSOPRAZOLE 30 MG TAB.RAP.DR PO SCH ×2 (06:36→17:23)
[2017-12-15] MEDS: INSULIN LISPRO 100 UNIT/ML 3 ML VIAL SUBCUT PRN ×4 (08:47→22:15)
[2017-12-15] MEDS: CLONIDINE HCL 0.2 MG TABLET PO SCH ×2 (10:06→22:15)
[2017-12-15] MEDS: FUROSEMIDE 40 MG TABLET PO SCH (10:06)
[2017-12-15] MEDS: HYDROCHLOROTHIAZIDE 25 MG TABLET PO SCH (10:06)
[2017-12-15] MEDS: CALCITRIOL 0.25 MCG CAPSULE PO SCH (10:06)
[2017-12-15] MEDS: ASPIRIN 81 MG TABLET, ENT COATED PO SCH (10:07)
[2017-12-15] MEDS: METOPROLOL TARTRATE 100 MG TABLET PO SCH ×2 (10:07→22:15)
[2017-12-15] MEDS: VALSARTAN 160 MG TABLET PO SCH (10:08)
[2017-12-15] MEDS: METOCLOPRAMIDE HCL 10 MG TABLET PO SCH ×3 (10:08→17:23)
[2017-12-15] MEDS: OXYCODONE-ACETAMINOPHEN 5-325 MG TABLET PO SCH ×2 (10:08→22:30)
[2017-12-15] MEDS: PREGABALIN 50 MG CAPSULE PO SCH ×2 (10:16→22:16)
--- NOTE | 2017-12-15 12:31 | PDOC PROGRESS REPORT ---
Subjective Progress Note for:: 12/15/17 Subjective:: Patient is currently doing fair Patient's denied any chest pain denied any shortness of the breath Patient is able to eat Reason For Visit: HYPERTENSIVE URGENCY Physical Exam Vital Signs: Temp Pulse Resp BP Pulse Ox 98.3 F 59 L 18 141/57 H 96 12/15/17 07:19 12/15/17 07:19 12/15/17 07:19 12/15/17 07:19 12/15/17 07:19 Intake & Output 12/14/17 12/15/17 12/16/17 06:59 06:59 06:59 Intake Total 926 1462 Output Total 1350 Balance -424 1462 Weight 91.2 kg 90.2 kg General appearance: PRESENT: no acute distress, well-developed, well-nourished Head exam: PRESENT: atraumatic, normocephalic Eye exam: PRESENT: conjunctiva pink, EOMI, PERRLA. ABSENT: scleral icterus Ear exam: PRESENT: normal external ear exam Mouth exam: PRESENT: moist, tongue midline Neck exam: PRESENT: full ROM. ABSENT: carotid bruit, JVD, lymphadenopathy, thyromegaly Respiratory exam: PRESENT: clear to auscultation jeanette Cardiovascular exam: PRESENT: RRR. ABSENT: diastolic murmur, rubs, systolic murmur Pulses: PRESENT: normal dorsalis pedis pul, +2 pedal pulses bilateral Vascular exam: PRESENT: normal capillary refill GI/Abdominal exam: PRESENT: normal bowel sounds, soft. ABSENT: distended, guarding, mass, organolmegaly, rebound, tenderness Rectal exam: PRESENT: deferred Extremities exam: ABSENT: pedal edema Neurological exam: PRESENT: alert, awake, oriented to person, oriented to place , oriented to time, oriented to situation, CN II-XII grossly intact. ABSENT: motor sensory deficit Psychiatric exam: PRESENT: appropriate affect, normal mood. ABSENT: homicidal ideation, suicidal ideation Skin exam: PRESENT: dry, intact, warm. ABSENT: cyanosis, rash Results Laboratory Results: 12/14/17 06:58 12/14/17 06:58 12/13/17 12/13/17 12/13/17 04:00 10:10 16:20 Creatine Kinase CK-MB (CK-2) Troponin I 0.084 0.053 0.037 12/14/17 12/14/17 06:58 06:58 Creatine Kinase 80 CK-MB (CK-2) 1.11 Troponin I Impressions: Chest X-Ray 12/12/17 20:11 IMPRESSION: NO SIGNIFICANT RADIOGRAPHIC FINDING IN THE CHEST. Assessment & Plan - Diagnosis (1) Chronic kidney disease, stage III (moderate) Is this a current diagnosis for this admission?: Yes (2) Gastroparesis Is this a current diagnosis for this admission?: Yes (3) Hypertensive emergency Is this a current diagnosis for this admission?: Yes - Time Time Spent with patient: 15-24 minutes Medications reviewed and adjusted accordingly: Yes Anticipated discharge: Other Within: Other - Inpatient Certification Medical Necessity: Need Close Monitoring Due to Risk of Patient Decompensation Post Hospital Care: D/C Physical Aerodynamicist Documentation - Plan Summary Plan Summary: Continues to current medication
[2017-12-15] MEDS: ATORVASTATIN CALCIUM 80 MG TABLET PO SCH (22:15)
[2017-12-15] MEDS: GABAPENTIN 300 MG CAPSULE PO SCH (22:15)
[2017-12-16] MEDS: LANSOPRAZOLE 30 MG TAB.RAP.DR PO SCH ×2 (06:21→17:29)
[2017-12-16] MEDS: HEPARIN SOD (PORCINE) 5,000 UNIT/ML 1 ML SYRINGE SUBCUT SCH ×3 (06:21→21:15)
--- NOTE | 2017-12-16 07:13 | PDOC PROGRESS REPORT ---
Subjective Progress Note for:: 12/16/17 Subjective:: Patient is currently doing much better Patient's denied any chest pain denied any shortness of the breath Is denied any abdominal pain Reason For Visit: HYPERTENSIVE URGENCY Physical Exam Vital Signs: Temp Pulse Resp BP Pulse Ox 97.5 F 57 L 16 169/61 H 100 12/16/17 04:08 12/16/17 04:08 12/16/17 04:08 12/16/17 04:08 12/16/17 04:08 Intake & Output 12/15/17 12/16/17 12/17/17 06:59 06:59 06:59 Intake Total 1462 977 Output Total 0 Balance 1462 977 Weight 90.2 kg 91.4 kg General appearance: PRESENT: no acute distress, well-developed, well-nourished Head exam: PRESENT: atraumatic, normocephalic Eye exam: PRESENT: conjunctiva pink, EOMI, PERRLA. ABSENT: scleral icterus Ear exam: PRESENT: normal external ear exam Mouth exam: PRESENT: moist, tongue midline Neck exam: PRESENT: full ROM. ABSENT: carotid bruit, JVD, lymphadenopathy, thyromegaly Respiratory exam: PRESENT: clear to auscultation jeanette Cardiovascular exam: PRESENT: RRR. ABSENT: diastolic murmur, rubs, systolic murmur Pulses: PRESENT: normal dorsalis pedis pul, +2 pedal pulses bilateral Vascular exam: PRESENT: normal capillary refill GI/Abdominal exam: PRESENT: normal bowel sounds, soft. ABSENT: distended, guarding, mass, organolmegaly, rebound, tenderness Rectal exam: PRESENT: deferred Neurological exam: PRESENT: alert, awake, oriented to person, oriented to place , oriented to time, oriented to situation, CN II-XII grossly intact. ABSENT: motor sensory deficit Psychiatric exam: PRESENT: appropriate affect, normal mood. ABSENT: homicidal ideation, suicidal ideation Skin exam: PRESENT: dry, intact, warm. ABSENT: cyanosis, rash Results Laboratory Results: 12/14/17 06:58 12/14/17 06:58 12/13/17 12/13/17 12/13/17 04:00 10:10 16:20 Creatine Kinase CK-MB (CK-2) Troponin I 0.084 0.053 0.037 12/14/17 12/14/17 06:58 06:58 Creatine Kinase 80 CK-MB (CK-2) 1.11 Troponin I Impressions: Chest X-Ray 12/12/17 20:11 IMPRESSION: NO SIGNIFICANT RADIOGRAPHIC FINDING IN THE CHEST. Assessment & Plan - Diagnosis (1) Chronic kidney disease, stage III (moderate) Is this a current diagnosis for this admission?: Yes (2) Gastroparesis Is this a current diagnosis for this admission?: Yes (3) Hypertensive emergency Is this a current diagnosis for this admission?: Yes - Time Time Spent with patient: 15-24 minutes Medications reviewed and adjusted accordingly: Yes Anticipated discharge: Other Within: Other - Inpatient Certification Medical Necessity: Need Close Monitoring Due to Risk of Patient Decompensation Post Hospital Care: D/C Ticket Sales Agent Documentation - Plan Summary Plan Summary: current medication
[2017-12-16 07:47] LABS: ANION GAP 8 (5-19); BLOOD UREA NITROGEN 59 mg/dL (7-20); CALCIUM 8.5 mg/dL (8.4-10.2); CARBON DIOXIDE 25 mmol/L (22-30); CHLORIDE 98 mmol/L (98-107); GLUCOSE 237 mg/dL (75-110); POTASSIUM 4.2 mmol/L (3.6-5.0); SODIUM 131.4 mmol/L (137-145)
[2017-12-16 08:06] LABS: ABSOLUTE BASOPHILS # (AUTO) 0.1 10^3/uL (0.0-0.2); ABSOLUTE EOSINOPHILS # (AUTO) 0.3 10^3/uL (0.0-0.6); ABSOLUTE LYMPHOCYTES (AUTO) 2.1 10^3/uL (0.5-4.7); ABSOLUTE NEUT (AUTO) 6.2 10^3/uL (1.7-8.2); BASOPHILS % (AUTO) 0.7 % (0-2); EOSINOPHILS % (AUTO) 3.1 % (0-6); HEMATOCRIT 30.9 % (36.0-47.0); LYMPHOCYTES % (AUTO) 21.3 % (13-45); MEAN CORPUSCULAR HEMOGLOBIN 25.2 pg (27.0-33.4); MEAN CORPUSCULAR HGB CONC 33.5 g/dL (32.0-36.0); MEAN CORPUSCULAR VOLUME 75 fl (80-97); MONOCYTES % (AUTO) 10.9 % (3-13); PLATELET COUNT 230 10^3/uL (150-450); RED BLOOD COUNT 4.09 10^6/uL (3.72-5.28); RED CELL DISTRIBUTION WIDTH 15.3 % (11.5-14.0); TOTAL CELLS COUNTED % (AUTO) 100 %; WHITE BLOOD COUNT 9.6 10^3/uL (4.0-10.5)
[2017-12-16 08:22] LABS: HEMOGLOBIN 10.3 g/dL (12.0-15.5)
[2017-12-16] MEDS: INSULIN LISPRO 100 UNIT/ML 3 ML VIAL SUBCUT PRN ×3 (09:52→17:27)
[2017-12-16] MEDS: METOPROLOL TARTRATE 100 MG TABLET PO SCH ×2 (09:54→21:15)
[2017-12-16] MEDS: FUROSEMIDE 40 MG TABLET PO SCH (09:55)
[2017-12-16] MEDS: CALCITRIOL 0.25 MCG CAPSULE PO SCH (09:55)
[2017-12-16] MEDS: VALSARTAN 160 MG TABLET PO SCH (09:55)
[2017-12-16] MEDS: HYDROCHLOROTHIAZIDE 25 MG TABLET PO SCH (09:55)
[2017-12-16] MEDS: CLONIDINE HCL 0.2 MG TABLET PO SCH ×2 (09:56→21:15)
[2017-12-16] MEDS: ASPIRIN 81 MG TABLET, ENT COATED PO SCH (09:56)
[2017-12-16] MEDS: METOCLOPRAMIDE HCL 10 MG TABLET PO SCH ×3 (09:56→17:29)
[2017-12-16] MEDS: OXYCODONE-ACETAMINOPHEN 5-325 MG TABLET PO SCH ×2 (09:59→23:45)
[2017-12-16] MEDS: PREGABALIN 50 MG CAPSULE PO SCH ×2 (09:59→21:16)
[2017-12-16] MEDS ORDERED: ERGOCALCIFEROL (VITAMIN D2) 50000 UNIT (1.25 MG) CAPSULE PO SCH (10:00)
[2017-12-16] MEDS ORDERED: ACETAMINOPHEN 325 MG TABLET ONE (10:25)
[2017-12-16] MEDS: ATORVASTATIN CALCIUM 80 MG TABLET PO SCH (21:15)
[2017-12-16] MEDS: GABAPENTIN 300 MG CAPSULE PO SCH (21:15)
[2017-12-17] MEDS: HYDRALAZINE HCL INJ/PF 20 MG/1 ML SDV IV PRN ×3 (01:35→23:41)
[2017-12-17] MEDS ORDERED: CLONIDINE HCL 0.2 MG TABLET PO SCH (02:00)
[2017-12-17] MEDS: ACETAMINOPHEN 325 MG TABLET PO PRN ×3 (05:26→21:22)
[2017-12-17] MEDS: CLONIDINE HCL 0.2 MG TABLET PO SCH ×3 (05:26→21:19)
[2017-12-17] MEDS: HEPARIN SOD (PORCINE) 5,000 UNIT/ML 1 ML SYRINGE SUBCUT SCH ×3 (05:27→21:19)
[2017-12-17] MEDS: LANSOPRAZOLE 30 MG TAB.RAP.DR PO SCH ×2 (05:27→17:23)
[2017-12-17 07:08] LABS: ANION GAP 9 (5-19); BLOOD UREA NITROGEN 63 mg/dL (7-20); CALCIUM 8.8 mg/dL (8.4-10.2); CARBON DIOXIDE 25 mmol/L (22-30); CHLORIDE 101 mmol/L (98-107); GLUCOSE 229 mg/dL (75-110); POTASSIUM 4.4 mmol/L (3.6-5.0); SODIUM 135.4 mmol/L (137-145)
[2017-12-17] MEDS: HYDROCHLOROTHIAZIDE 25 MG TABLET PO SCH (09:51)
[2017-12-17] MEDS: ASPIRIN 81 MG TABLET, ENT COATED PO SCH (09:51)
[2017-12-17] MEDS: CALCITRIOL 0.25 MCG CAPSULE PO SCH (09:51)
[2017-12-17] MEDS: METOCLOPRAMIDE HCL 10 MG TABLET PO SCH ×3 (09:52→17:22)
[2017-12-17] MEDS: METOPROLOL TARTRATE 100 MG TABLET PO SCH (09:52)
[2017-12-17] MEDS: FUROSEMIDE 40 MG TABLET PO SCH (09:52)
[2017-12-17] MEDS: VALSARTAN 160 MG TABLET PO SCH (09:53)
[2017-12-17] MEDS: PREGABALIN 50 MG CAPSULE PO SCH ×2 (09:54→21:26)
[2017-12-17] MEDS: OXYCODONE-ACETAMINOPHEN 5-325 MG TABLET PO SCH ×2 (09:54→21:26)
[2017-12-17] MEDS: INSULIN LISPRO 100 UNIT/ML 3 ML VIAL SUBCUT PRN ×3 (13:00→22:08)
--- NOTE | 2017-12-17 21:17 | PDOC PROGRESS REPORT ---
Subjective Progress Note for:: 12/17/17 Subjective:: She was seen by the bedside, the serum creatinine from today's lab is 3 suggesting acute kidney injury in the setting of chronic kidney disease, probably due to blood pressure fluctuations Reason For Visit: HYPERTENSIVE URGENCY Physical Exam Vital Signs: Temp Pulse Resp BP Pulse Ox 97.5 F 58 L 16 154/68 H 100 12/17/17 19:35 12/17/17 19:35 12/17/17 19:35 12/17/17 19:35 12/17/17 19:35 Intake & Output 12/16/17 12/17/17 12/18/17 06:59 06:59 06:59 Intake Total 977 1324 1118 Output Total 0 Balance 977 1324 1118 Weight 91.4 kg 91.5 kg General appearance: PRESENT: no acute distress Eye exam: PRESENT: PERRLA Respiratory exam: PRESENT: clear to auscultation jeanette Cardiovascular exam: PRESENT: +S1, +S2 GI/Abdominal exam: PRESENT: soft Neurological exam: PRESENT: alert Results Laboratory Results: 12/16/17 07:52 12/17/17 06:28 12/17/17 06:28 Sodium 135.4 L Potassium 4.4 Chloride 101 Carbon Dioxide 25 Anion Gap 9 BUN 63 H Creatinine 3.05 H Est GFR ( Amer) 18 L Est GFR (Non-Af Amer) 15 L Glucose 229 H Calcium 8.8 12/13/17 12/13/17 12/13/17 04:00 10:10 16:20 Creatine Kinase CK-MB (CK-2) Troponin I 0.084 0.053 0.037 12/14/17 12/14/17 06:58 06:58 Creatine Kinase 80 CK-MB (CK-2) 1.11 Troponin I Impressions: Chest X-Ray 12/12/17 20:11 IMPRESSION: NO SIGNIFICANT RADIOGRAPHIC FINDING IN THE CHEST. Assessment & Plan - Diagnosis (1) Hypertensive emergency Is this a current diagnosis for this admission?: Yes (2) Chronic kidney disease, stage III (moderate) Is this a current diagnosis for this admission?: Yes (3) Type 2 diabetes mellitus Qualifiers: Diabetes mellitus fpc insulin use: with fpc use Diabetes mellitus complication status: with kidney complications Diabetes mellitus complication detail: with chronic kidney disease Chronic kidney disease stage : stage 3 (moderate) Qualified Code(s): E11.22 - Type 2 diabetes mellitus with diabetic chronic kidney disease; N18.3 - Chronic kidney disease, stage 3 ( moderate); N18.3 - Chronic kidney disease, stage 3 (moderate); Z79.4 - group home (current) use of insulin; Z79.4 - professor of political science (current) use of insulin; Z79.4 - group home (current) use of insulin; Z79.4 - group home (current) use of insulin Is this a current diagnosis for this admission?: Yes (4) Gastroparesis Is this a current diagnosis for this admission?: Yes - Plan Summary Plan Summary: Continue treatment
[2017-12-17] MEDS: ATORVASTATIN CALCIUM 80 MG TABLET PO SCH (21:22)
[2017-12-17] MEDS: GABAPENTIN 300 MG CAPSULE PO SCH (21:26)
[2017-12-18] MEDS: METOPROLOL TARTRATE 100 MG TABLET PO SCH ×3 (03:35→21:23)
[2017-12-18] MEDS: HEPARIN SOD (PORCINE) 5,000 UNIT/ML 1 ML SYRINGE SUBCUT SCH ×3 (05:50→21:24)
[2017-12-18] MEDS: LANSOPRAZOLE 30 MG TAB.RAP.DR PO SCH ×2 (05:50→16:17)
[2017-12-18] MEDS: CLONIDINE HCL 0.2 MG TABLET PO SCH ×3 (05:50→21:23)
[2017-12-18 08:59] LABS: ANION GAP 11 (5-19); BLOOD UREA NITROGEN 59 mg/dL (7-20); CARBON DIOXIDE 28 mmol/L (22-30); CHLORIDE 98 mmol/L (98-107); GLUCOSE 274 mg/dL (75-110); POTASSIUM 4.2 mmol/L (3.6-5.0); SODIUM 136.9 mmol/L (137-145)
[2017-12-18] MEDS: INSULIN LISPRO 100 UNIT/ML 3 ML VIAL SUBCUT PRN ×4 (09:11→22:52)
[2017-12-18] MEDS: VALSARTAN 160 MG TABLET PO SCH (09:11)
[2017-12-18] MEDS: HYDROCHLOROTHIAZIDE 25 MG TABLET PO SCH (09:12)
[2017-12-18] MEDS: ASPIRIN 81 MG TABLET, ENT COATED PO SCH (09:12)
[2017-12-18] MEDS: CALCITRIOL 0.25 MCG CAPSULE PO SCH (09:12)
[2017-12-18] MEDS: FUROSEMIDE 40 MG TABLET PO SCH (09:13)
[2017-12-18] MEDS: METOCLOPRAMIDE HCL 10 MG TABLET PO SCH ×3 (09:13→17:02)
[2017-12-18] MEDS: ACETAMINOPHEN 325 MG TABLET PO PRN ×2 (09:22→14:28)
[2017-12-18] MEDS: OXYCODONE-ACETAMINOPHEN 5-325 MG TABLET PO SCH (09:44)
[2017-12-18] MEDS: PREGABALIN 50 MG CAPSULE PO SCH ×2 (09:44→21:39)
[2017-12-18] MEDS: ATORVASTATIN CALCIUM 80 MG TABLET PO SCH (21:22)
[2017-12-18] MEDS: OXYCODONE-ACETAMINOPHEN 5-325 MG TABLET PO PRN (21:23)
--- NOTE | 2017-12-18 21:29 | PDOC PROGRESS REPORT ---
Subjective Progress Note for:: 12/18/17 Subjective:: She was seen by the bedside, she is contemplating going for rehabilitation, the kidney function is improved some Reason For Visit: HYPERTENSIVE URGENCY Physical Exam Vital Signs: Temp Pulse Resp BP Pulse Ox 97.9 F 63 20 174/58 H 100 12/18/17 15:39 12/18/17 15:39 12/18/17 15:39 12/18/17 15:39 12/18/17 15:39 Intake & Output 12/17/17 12/18/17 12/19/17 06:59 06:59 06:59 Intake Total 1324 1422 469 Balance 1324 1422 469 Weight 91.5 kg 93.9 kg General appearance: PRESENT: no acute distress Eye exam: PRESENT: PERRLA Respiratory exam: PRESENT: clear to auscultation jeanette Cardiovascular exam: PRESENT: +S1, +S2 GI/Abdominal exam: PRESENT: soft Neurological exam: PRESENT: alert Results Laboratory Results: 12/16/17 07:52 12/18/17 08:24 12/18/17 12/18/17 06:50 08:24 Sodium Cancelled 136.9 L Potassium Cancelled 4.2 Chloride Cancelled 98 Carbon Dioxide Cancelled 28 Anion Gap Cancelled 11 BUN Cancelled 59 H Creatinine Cancelled 2.57 H Est GFR ( Amer) Cancelled 22 L Est GFR (Non-Af Amer) Cancelled 18 L Glucose Cancelled 274 H Calcium Cancelled 9.0 12/13/17 12/13/17 12/13/17 04:00 10:10 16:20 Creatine Kinase CK-MB (CK-2) Troponin I 0.084 0.053 0.037 12/14/17 12/14/17 06:58 06:58 Creatine Kinase 80 CK-MB (CK-2) 1.11 Troponin I Impressions: Chest X-Ray 12/12/17 20:11 IMPRESSION: NO SIGNIFICANT RADIOGRAPHIC FINDING IN THE CHEST. Assessment & Plan - Diagnosis (1) Hypertensive emergency Is this a current diagnosis for this admission?: Yes (2) Chronic kidney disease, stage III (moderate) Is this a current diagnosis for this admission?: Yes (3) Type 2 diabetes mellitus Qualifiers: Diabetes mellitus skilled nursing insulin use: with budget coordinator use Diabetes mellitus complication status: with kidney complications Diabetes mellitus complication detail: with chronic kidney disease Chronic kidney disease stage : stage 3 (moderate) Qualified Code(s): E11.22 - Type 2 diabetes mellitus with diabetic chronic kidney disease; N18.3 - Chronic kidney disease, stage 3 ( moderate); N18.3 - Chronic kidney disease, stage 3 (moderate); Z79.4 - field crop harvest worker (current) use of insulin; Z79.4 - field crop harvest worker (current) use of insulin; Z79.4 - [facility] (current) use of insulin; Z79.4 - field crop harvest worker (current) use of insulin Is this a current diagnosis for this admission?: Yes (4) Gastroparesis Is this a current diagnosis for this admission?: Yes (5) Acute on chronic renal failure Qualifiers: Acute renal failure type: with acute tubular necrosis Chronic kidney disease stage: stage 3 (moderate) Qualified Code(s): N17.0 - Acute kidney failure with tubular necrosis; N18.3 - Chronic kidney disease, stage 3 (moderate ); N18.3 - Chronic kidney disease, stage 3 (moderate) Is this a current diagnosis for this admission?: Yes
[2017-12-18] MEDS: GABAPENTIN 300 MG CAPSULE PO SCH (21:39)
[2017-12-19] MEDS: ACETAMINOPHEN 325 MG TABLET PO PRN ×3 (05:19→17:32)
[2017-12-19] MEDS: HEPARIN SOD (PORCINE) 5,000 UNIT/ML 1 ML SYRINGE SUBCUT SCH ×3 (05:20→21:49)
[2017-12-19] MEDS: LANSOPRAZOLE 30 MG TAB.RAP.DR PO SCH ×2 (05:20→17:33)
[2017-12-19] MEDS: CLONIDINE HCL 0.2 MG TABLET PO SCH ×3 (05:20→21:52)
[2017-12-19 08:23] LABS: ABSOLUTE BASOPHILS # (AUTO) 0.1 10^3/uL (0.0-0.2); ABSOLUTE EOSINOPHILS # (AUTO) 0.2 10^3/uL (0.0-0.6); ABSOLUTE LYMPHOCYTES (AUTO) 1.7 10^3/uL (0.5-4.7); ABSOLUTE MONOCYTES (AUTO) 0.8 10^3/uL (0.1-1.4); BASOPHILS % (AUTO) 0.9 % (0-2); EOSINOPHILS % (AUTO) 2.6 % (0-6); HEMATOCRIT 33.5 % (36.0-47.0); HEMOGLOBIN 11.1 g/dL (12.0-15.5); LYMPHOCYTES % (AUTO) 22.3 % (13-45); MEAN CORPUSCULAR HEMOGLOBIN 25.2 pg (27.0-33.4); MEAN CORPUSCULAR HGB CONC 33.2 g/dL (32.0-36.0); MEAN CORPUSCULAR VOLUME 76 fl (80-97); PLATELET COUNT 224 10^3/uL (150-450); RED BLOOD COUNT 4.41 10^6/uL (3.72-5.28); RED CELL DISTRIBUTION WIDTH 15.1 % (11.5-14.0); SEGMENTED NEUTROPHILS % (AUTO) 64.2 % (42-78); TOTAL CELLS COUNTED % (AUTO) 100 %; WHITE BLOOD COUNT 7.8 10^3/uL (4.0-10.5)
[2017-12-19 08:49] LABS: ALANINE AMINOTRANSFERASE 23 U/L (9-52); ALBUMIN 3.2 g/dL (3.5-5.0); ALKALINE PHOSPHATASE 106 U/L (38-126); ANION GAP 10 (5-19); ASPARTATE AMINO TRANSFERASE 23 U/L (14-36); BILIRUBIN,DIRECT 0.2 mg/dL (0.0-0.4); BILIRUBIN,TOTAL 0.2 mg/dL (0.2-1.3); BLOOD UREA NITROGEN 60 mg/dL (7-20); CARBON DIOXIDE 28 mmol/L (22-30); CHLORIDE 98 mmol/L (98-107); GLUCOSE 275 mg/dL (75-110); POTASSIUM 4.3 mmol/L (3.6-5.0); SODIUM 135.6 mmol/L (137-145)
[2017-12-19] MEDS: FUROSEMIDE 40 MG TABLET PO SCH (09:35)
[2017-12-19] MEDS: METOCLOPRAMIDE HCL 10 MG TABLET PO SCH ×3 (09:35→17:32)
[2017-12-19] MEDS: HYDROCHLOROTHIAZIDE 25 MG TABLET PO SCH (09:38)
[2017-12-19] MEDS: ASPIRIN 81 MG TABLET, ENT COATED PO SCH (09:38)
[2017-12-19] MEDS: CALCITRIOL 0.25 MCG CAPSULE PO SCH (09:38)
[2017-12-19] MEDS: METOPROLOL TARTRATE 100 MG TABLET PO SCH ×2 (09:39→21:52)
[2017-12-19] MEDS: VALSARTAN 160 MG TABLET PO SCH (09:39)
[2017-12-19] MEDS: PREGABALIN 50 MG CAPSULE PO SCH ×2 (10:09→23:25)
[2017-12-19] MEDS: INSULIN LISPRO 100 UNIT/ML 3 ML VIAL SUBCUT PRN ×2 (11:42→17:33)
[2017-12-19] MEDS: HYDRALAZINE HCL INJ/PF 20 MG/1 ML SDV IV PRN (11:42)
--- NOTE | 2017-12-19 20:15 | PDOC PROGRESS REPORT ---
Subjective Progress Note for:: 12/19/17 Subjective:: She was seen by the bedsideThe blood pressure was still elevated, IV access is a problem, we will discontinue as needed IV antihypertensive and start p.o. hydralazine on a scheduled, plan is [facility] Reason For Visit: HYPERTENSIVE URGENCY Physical Exam Vital Signs: Temp Pulse Resp BP Pulse Ox 98.2 F 54 L 18 137/57 H 98 12/19/17 16:48 12/19/17 16:48 12/19/17 16:48 12/19/17 16:48 12/19/17 16:48 Intake & Output 12/18/17 12/19/17 12/20/17 06:59 06:59 06:59 Intake Total 1422 1423 460 Balance 1422 1423 460 Weight 93.9 kg 94.6 kg General appearance: PRESENT: no acute distress Head exam: PRESENT: atraumatic, normocephalic Eye exam: PRESENT: conjunctiva pink, EOMI, PERRLA Ear exam: PRESENT: normal external ear exam Mouth exam: PRESENT: moist, tongue midline Neck exam: PRESENT: full ROM Respiratory exam: PRESENT: clear to auscultation jeanette Cardiovascular exam: PRESENT: RRR, +S1, +S2 Pulses: PRESENT: normal dorsalis pedis pul, +2 pedal pulses bilateral Vascular exam: PRESENT: normal capillary refill GI/Abdominal exam: PRESENT: normal bowel sounds, soft Rectal exam: PRESENT: deferred Neurological exam: PRESENT: alert Skin exam: PRESENT: dry, intact, warm. ABSENT: cyanosis, rash Results Laboratory Results: 12/19/17 08:12 12/19/17 08:12 12/19/17 12/19/17 08:12 08:12 WBC 7.8 RBC 4.41 Hgb 11.1 L Hct 33.5 L MCV 76 L MCH 25.2 L MCHC 33.2 RDW 15.1 H Plt Count 224 Seg Neutrophils % 64.2 Lymphocytes % 22.3 Monocytes % 10.0 Eosinophils % 2.6 Basophils % 0.9 Absolute Neutrophils 5.0 Absolute Lymphocytes 1.7 Absolute Monocytes 0.8 Absolute Eosinophils 0.2 Absolute Basophils 0.1 Sodium 135.6 L Potassium 4.3 Chloride 98 Carbon Dioxide 28 Anion Gap 10 BUN 60 H Creatinine 2.38 H Est GFR ( Amer) 24 L Est GFR (Non-Af Amer) 20 L Glucose 275 H Calcium 9.0 Total Bilirubin 0.2 AST 23 ALT 23 Alkaline Phosphatase 106 Total Protein 6.0 L Albumin 3.2 L 12/13/17 12/13/17 12/13/17 04:00 10:10 16:20 Creatine Kinase CK-MB (CK-2) Troponin I 0.084 0.053 0.037 12/14/17 12/14/17 06:58 06:58 Creatine Kinase 80 CK-MB (CK-2) 1.11 Troponin I Impressions: Chest X-Ray 12/12/17 20:11 IMPRESSION: NO SIGNIFICANT RADIOGRAPHIC FINDING IN THE CHEST. Assessment & Plan - Diagnosis (1) Hypertensive emergency Is this a current diagnosis for this admission?: Yes Plan: Start p.o. hydralazine (2) Chronic kidney disease, stage III (moderate) Is this a current diagnosis for this admission?: Yes (3) Type 2 diabetes mellitus Qualifiers: Diabetes mellitus care home insulin use: with care home use Diabetes mellitus complication status: with kidney complications Diabetes mellitus complication detail: with chronic kidney disease Chronic kidney disease stage : stage 3 (moderate) Qualified Code(s): E11.22 - Type 2 diabetes mellitus with diabetic chronic kidney disease; N18.3 - Chronic kidney disease, stage 3 ( moderate); N18.3 - Chronic kidney disease, stage 3 (moderate); Z79.4 - balance sheet analyst (current) use of insulin; Z79.4 - [facility] (current) use of insulin; Z79.4 - balance sheet analyst (current) use of insulin; Z79.4 - [facility] (current) use of insulin Is this a current diagnosis for this admission?: Yes (4) Gastroparesis Is this a current diagnosis for this admission?: Yes (5) Acute on chronic renal failure Qualifiers: Acute renal failure type: with acute tubular necrosis Chronic kidney disease stage: stage 3 (moderate) Qualified Code(s): N17.0 - Acute kidney failure with tubular necrosis; N18.3 - Chronic kidney disease, stage 3 (moderate ); N18.3 - Chronic kidney disease, stage 3 (moderate) Is this a current diagnosis for this admission?: Yes
[2017-12-19] MEDS ORDERED: HYDRALAZINE HCL 25 MG TABLET PO ONE (21:00)
[2017-12-19] MEDS: OXYCODONE-ACETAMINOPHEN 5-325 MG TABLET PO PRN (21:49)
[2017-12-19] MEDS: ATORVASTATIN CALCIUM 80 MG TABLET PO SCH (21:51)
[2017-12-19] MEDS: GABAPENTIN 300 MG CAPSULE PO SCH (21:56)
[2017-12-19] MEDS ORDERED: POLYETHYLENE GLYCOL 3350 POWDER 17 GM/1 PACKET PO PRN (22:33)
[2017-12-20] MEDS: ACETAMINOPHEN 325 MG TABLET PO PRN ×3 (04:23→20:02)
[2017-12-20] MEDS: LANSOPRAZOLE 30 MG TAB.RAP.DR PO SCH ×2 (05:34→17:31)
[2017-12-20] MEDS: CLONIDINE HCL 0.2 MG TABLET PO SCH ×3 (05:34→22:42)
[2017-12-20] MEDS: HYDRALAZINE HCL 25 MG TABLET PO SCH ×3 (05:34→22:41)
[2017-12-20] MEDS: HEPARIN SOD (PORCINE) 5,000 UNIT/ML 1 ML SYRINGE SUBCUT SCH ×3 (05:35→22:42)
[2017-12-20] MEDS: ASPIRIN 81 MG TABLET, ENT COATED PO SCH (10:39)
[2017-12-20] MEDS: HYDROCHLOROTHIAZIDE 25 MG TABLET PO SCH (10:39)
[2017-12-20] MEDS: VALSARTAN 160 MG TABLET PO SCH (10:39)
[2017-12-20] MEDS: METOPROLOL TARTRATE 100 MG TABLET PO SCH ×2 (10:39→22:42)
[2017-12-20] MEDS: FUROSEMIDE 40 MG TABLET PO SCH (10:39)
[2017-12-20] MEDS: CALCITRIOL 0.25 MCG CAPSULE PO SCH (10:39)
[2017-12-20] MEDS: PREGABALIN 50 MG CAPSULE PO SCH ×2 (10:39→22:41)
[2017-12-20] MEDS: METOCLOPRAMIDE HCL 10 MG TABLET PO SCH ×3 (10:39→17:31)
[2017-12-20 13:12] LABS: ABSOLUTE BASOPHILS # (AUTO) 0.1 10^3/uL (0.0-0.2); ABSOLUTE EOSINOPHILS # (AUTO) 0.1 10^3/uL (0.0-0.6); ABSOLUTE LYMPHOCYTES (AUTO) 1.7 10^3/uL (0.5-4.7); ABSOLUTE MONOCYTES (AUTO) 0.9 10^3/uL (0.1-1.4); ABSOLUTE NEUT (AUTO) 4.4 10^3/uL (1.7-8.2); BASOPHILS % (AUTO) 1.1 % (0-2); EOSINOPHILS % (AUTO) 1.8 % (0-6); HEMOGLOBIN 10.9 g/dL (12.0-15.5); LYMPHOCYTES % (AUTO) 23.2 % (13-45); MEAN CORPUSCULAR HEMOGLOBIN 25.2 pg (27.0-33.4); MEAN CORPUSCULAR HGB CONC 33.1 g/dL (32.0-36.0); MEAN CORPUSCULAR VOLUME 76 fl (80-97); MONOCYTES % (AUTO) 12.5 % (3-13); PLATELET COUNT 226 10^3/uL (150-450); RED BLOOD COUNT 4.34 10^6/uL (3.72-5.28); RED CELL DISTRIBUTION WIDTH 15.4 % (11.5-14.0); SEGMENTED NEUTROPHILS % (AUTO) 61.4 % (42-78); TOTAL CELLS COUNTED % (AUTO) 100 %; WHITE BLOOD COUNT 7.2 10^3/uL (4.0-10.5)
[2017-12-20 13:34] LABS: ALANINE AMINOTRANSFERASE 29 U/L (9-52); ALBUMIN 3.2 g/dL (3.5-5.0); ALKALINE PHOSPHATASE 96 U/L (38-126); ANION GAP 10 (5-19); ASPARTATE AMINO TRANSFERASE 19 U/L (14-36); BILIRUBIN,DIRECT 0.2 mg/dL (0.0-0.4); BILIRUBIN,TOTAL 0.2 mg/dL (0.2-1.3); BLOOD UREA NITROGEN 56 mg/dL (7-20); CALCIUM 8.9 mg/dL (8.4-10.2); CARBON DIOXIDE 25 mmol/L (22-30); CHLORIDE 98 mmol/L (98-107); GLUCOSE 263 mg/dL (75-110); POTASSIUM 3.9 mmol/L (3.6-5.0); SODIUM 132.9 mmol/L (137-145); TOTAL PROTEIN 6.1 g/dL (6.3-8.2)
[2017-12-20] MEDS: INSULIN LISPRO 100 UNIT/ML 3 ML VIAL SUBCUT PRN ×3 (14:19→23:34)
--- NOTE | 2017-12-20 21:25 | PDOC PROGRESS REPORT ---
Subjective Progress Note for:: 12/20/17 Subjective:: She was seen by the bedside, the plan is to transfer to [facility] for rehabilitation as soon as bed is available Reason For Visit: HYPERTENSIVE URGENCY Physical Exam Vital Signs: Temp Pulse Resp BP Pulse Ox 98.5 F 57 L 16 144/54 H 100 12/20/17 16:08 12/20/17 16:08 12/20/17 16:08 12/20/17 16:08 12/20/17 16:08 Intake & Output 12/19/17 12/20/17 12/21/17 06:59 06:59 06:59 Intake Total 1423 460 600 Balance 1423 460 600 Weight 94.6 kg 91 kg General appearance: PRESENT: no acute distress Eye exam: PRESENT: PERRLA Cardiovascular exam: PRESENT: +S1, +S2 GI/Abdominal exam: PRESENT: soft Neurological exam: PRESENT: alert Results Laboratory Results: 12/20/17 12:54 12/20/17 12:54 12/20/17 12/20/17 12:54 12:54 WBC 7.2 RBC 4.34 Hgb 10.9 L Hct 33.0 L MCV 76 L MCH 25.2 L MCHC 33.1 RDW 15.4 H Plt Count 226 Seg Neutrophils % 61.4 Lymphocytes % 23.2 Monocytes % 12.5 Eosinophils % 1.8 Basophils % 1.1 Absolute Neutrophils 4.4 Absolute Lymphocytes 1.7 Absolute Monocytes 0.9 Absolute Eosinophils 0.1 Absolute Basophils 0.1 Sodium 132.9 L Potassium 3.9 Chloride 98 Carbon Dioxide 25 Anion Gap 10 BUN 56 H Creatinine 2.53 H Est GFR ( Amer) 23 L Est GFR (Non-Af Amer) 19 L Glucose 263 H Calcium 8.9 Total Bilirubin 0.2 AST 19 ALT 29 Alkaline Phosphatase 96 Total Protein 6.1 L Albumin 3.2 L 12/13/17 12/13/17 12/13/17 04:00 10:10 16:20 Creatine Kinase CK-MB (CK-2) Troponin I 0.084 0.053 0.037 12/14/17 12/14/17 06:58 06:58 Creatine Kinase 80 CK-MB (CK-2) 1.11 Troponin I Impressions: Chest X-Ray 12/12/17 20:11 IMPRESSION: NO SIGNIFICANT RADIOGRAPHIC FINDING IN THE CHEST. Assessment & Plan - Diagnosis (1) Hypertensive emergency Is this a current diagnosis for this admission?: Yes (2) Chronic kidney disease, stage III (moderate) Is this a current diagnosis for this admission?: Yes (3) Type 2 diabetes mellitus Qualifiers: Diabetes mellitus tongue lining stitcher insulin use: with [facility] use Diabetes mellitus complication status: with kidney complications Diabetes mellitus complication detail: with chronic kidney disease Chronic kidney disease stage : stage 3 (moderate) Qualified Code(s): E11.22 - Type 2 diabetes mellitus with diabetic chronic kidney disease; N18.3 - Chronic kidney disease, stage 3 ( moderate); N18.3 - Chronic kidney disease, stage 3 (moderate); Z79.4 - cook apprentice pastry (current) use of insulin; Z79.4 - cook apprentice pastry (current) use of insulin; Z79.4 - cook apprentice pastry (current) use of insulin; Z79.4 - residential (current) use of insulin Is this a current diagnosis for this admission?: Yes (4) Gastroparesis Is this a current diagnosis for this admission?: Yes (5) Acute on chronic renal failure Qualifiers: Acute renal failure type: with acute tubular necrosis Chronic kidney disease stage: stage 3 (moderate) Qualified Code(s): N17.0 - Acute kidney failure with tubular necrosis; N18.3 - Chronic kidney disease, stage 3 (moderate ); N18.3 - Chronic kidney disease, stage 3 (moderate) Is this a current diagnosis for this admission?: Yes
[2017-12-20] MEDS: ATORVASTATIN CALCIUM 80 MG TABLET PO SCH (22:40)
[2017-12-20] MEDS: GABAPENTIN 300 MG CAPSULE PO SCH (22:41)
[2017-12-21] MEDS: ACETAMINOPHEN 325 MG TABLET PO PRN ×4 (01:46→17:48)
[2017-12-21] MEDS: HYDRALAZINE HCL 25 MG TABLET PO SCH ×2 (06:14→12:34)
[2017-12-21] MEDS: CLONIDINE HCL 0.2 MG TABLET PO SCH ×2 (06:15→12:33)
[2017-12-21] MEDS: LANSOPRAZOLE 30 MG TAB.RAP.DR PO SCH ×2 (06:15→17:59)
[2017-12-21] MEDS: HEPARIN SOD (PORCINE) 5,000 UNIT/ML 1 ML SYRINGE SUBCUT SCH ×2 (06:15→12:47)
[2017-12-21] MEDS: HYDROCHLOROTHIAZIDE 25 MG TABLET PO SCH (08:15)
[2017-12-21] MEDS: METOCLOPRAMIDE HCL 10 MG TABLET PO SCH ×3 (08:15→17:59)
[2017-12-21] MEDS: FUROSEMIDE 40 MG TABLET PO SCH (08:15)
[2017-12-21] MEDS: CALCITRIOL 0.25 MCG CAPSULE PO SCH (08:15)
[2017-12-21] MEDS: VALSARTAN 160 MG TABLET PO SCH (08:16)
[2017-12-21] MEDS: METOPROLOL TARTRATE 100 MG TABLET PO SCH (08:17)
[2017-12-21] MEDS: ASPIRIN 81 MG TABLET, ENT COATED PO SCH (08:17)
[2017-12-21] MEDS: PREGABALIN 50 MG CAPSULE PO SCH (08:19)
[2017-12-21 09:19] LABS: ABSOLUTE BASOPHILS # (AUTO) 0.1 10^3/uL (0.0-0.2); ABSOLUTE EOSINOPHILS # (AUTO) 0.2 10^3/uL (0.0-0.6); ABSOLUTE LYMPHOCYTES (AUTO) 1.9 10^3/uL (0.5-4.7); ABSOLUTE NEUT (AUTO) 4.3 10^3/uL (1.7-8.2); BASOPHILS % (AUTO) 0.8 % (0-2); EOSINOPHILS % (AUTO) 2.3 % (0-6); HEMATOCRIT 34.3 % (36.0-47.0); HEMOGLOBIN 11.6 g/dL (12.0-15.5); LYMPHOCYTES % (AUTO) 25.6 % (13-45); MEAN CORPUSCULAR HEMOGLOBIN 25.5 pg (27.0-33.4); MEAN CORPUSCULAR HGB CONC 33.7 g/dL (32.0-36.0); MEAN CORPUSCULAR VOLUME 76 fl (80-97); MONOCYTES % (AUTO) 12.8 % (3-13); PLATELET COUNT 231 10^3/uL (150-450); RED BLOOD COUNT 4.52 10^6/uL (3.72-5.28); RED CELL DISTRIBUTION WIDTH 15.7 % (11.5-14.0); SEGMENTED NEUTROPHILS % (AUTO) 58.5 % (42-78); TOTAL CELLS COUNTED % (AUTO) 100 %; WHITE BLOOD COUNT 7.4 10^3/uL (4.0-10.5)
[2017-12-21 09:40] LABS: ALANINE AMINOTRANSFERASE 28 U/L (9-52); ALKALINE PHOSPHATASE 103 U/L (38-126); ASPARTATE AMINO TRANSFERASE 17 U/L (14-36); BILIRUBIN,DIRECT 0.1 mg/dL (0.0-0.4); BILIRUBIN,TOTAL 0.1 mg/dL (0.2-1.3)
[2017-12-21 09:41] LABS: ALBUMIN 3.4 g/dL (3.5-5.0); ANION GAP 13 (5-19); BLOOD UREA NITROGEN 59 mg/dL (7-20); CALCIUM 8.9 mg/dL (8.4-10.2); CARBON DIOXIDE 23 mmol/L (22-30); CHLORIDE 94 mmol/L (98-107); GLUCOSE 360 mg/dL (75-110); POTASSIUM 4.7 mmol/L (3.6-5.0); SODIUM 129.7 mmol/L (137-145); TOTAL PROTEIN 6.1 g/dL (6.3-8.2)
[2017-12-21] MEDS: INSULIN LISPRO 100 UNIT/ML 3 ML VIAL SUBCUT PRN ×2 (12:39→17:49)
--- NOTE | 2017-12-21 15:47 | PDOC TRANSFER SUMMARY ---
General - Admit/Disc Date/PCP Admission Date/Primary Care Provider: 12/13/17 01:01 QUINCY ALEJO MD Discharge Date: 12/21/17 - Discharge Diagnosis (1) Hypertensive emergency Is this a current diagnosis for this admission?: Yes (2) Chronic kidney disease, stage III (moderate) Is this a current diagnosis for this admission?: Yes (3) Type 2 diabetes mellitus Is this a current diagnosis for this admission?: Yes (4) Gastroparesis Is this a current diagnosis for this admission?: Yes (5) Acute on chronic renal failure Is this a current diagnosis for this admission?: Yes (6) Physical deconditioning Is this a current diagnosis for this admission?: Yes - Additional Information Resuscitation Status: Full Code Home Medications: Aspirin [Aspirin EC] 81 mg PO DAILY 12/13/17 Atorvastatin Calcium [Lipitor 80 mg Tablet] 80 mg PO QHS 12/13/17 Calcitriol [Rocaltrol 0.25 mcg Capsule] 0.25 mg PO DAILY 12/13/17 Ergocalciferol (Vitamin D2) [Drisdol 50,000 unit (1.25MG) Capsule] 50,000 unit PO ROSEN@1000 12/13/17 Furosemide [Lasix 40 mg Tablet] 40 mg PO DAILY 12/13/17 Gabapentin [Neurontin 300 mg Capsule] 300 mg PO QHS 12/13/17 Metoprolol Tartrate [Lopressor 100 mg Tablet] 100 mg PO Q12 12/13/17 Omeprazole 20 mg PO DAILY 12/13/17 Oxycodone HCl/Acetaminophen [Percocet 5-325 mg Tablet] 1 tab PO BID 12/13/17 Pregabalin [Lyrica 50 mg Capsule] 50 mg PO Q12 12/13/17 Valsartan/Hydrochlorothiazide [Diovan Hct 320-25 mg Tablet] 1 tab PO DAILY 12/13 Hydralazine HCl [Apresoline 25 mg Tablet] 25 mg PO Q8 #0 tablet 12/21/17 Metoclopramide HCl [Reglan 10 mg Tablet] 10 mg PO TID #0 tablet 12/21/17 History of Present Illness Admission Date/PCP: 12/13/17 01:01 QUINCY ALEJO MD History of Present Illness: YG METZ is a 72 year old female, she came to the emergency room for evaluation of nausea and vomiting, she denied any abdominal pain other than her chronic back pain which is unchanged from baseline there was no chest pain, in the emergency room she was found to have severely elevated blood pressure over 200 systolic, the blood pressure could not be controlled to emergency room, she was started on Cardene infusion and ICU admission was advised. She presented in a similar fashion the last time she was admitted, 11/13/2017 when she had epigastric pain with associated vomiting with nausea, on that admission she also had hypertensive emergency, she also was treated with Cardizem infusion, this was complicated with acute kidney injury felt to be secondary to acute tubular necrosis due to wide fluctuations in her blood pressure. She has a history of diabetic nephropathy with nephrotic range proteinuria and stage III chronic kidney disease. The last time she was discharged from the hospital which was on 11/13/2017, she was discharged on metoprolol 100 mg 1 tablet 2 times a day, clonidine 0.3 mg 1 tablet 2 times a day but it seems that she has been taking it once a day. Hospital Course Hospital Course: Patient was admitted for the management of hypertensive emergency She was treated with Intravenous Cardene infusion initially in intensive care unit, this was discontinued in 24 was because previously she developed acute kidney injury due to fluctuation in blood pressure.The blood pressure was poorly controlled requiring multiple medication to achieve reasonable control the blood pressure, she has acute on chronic kidney disease. The plan is to transfer patient to custodial for rehabilitation because she is very deconditioned.She has gastroparesis and that is the most likely etiology of the nausea and vomiting she was started on Reglan on this admission she will receive the medication for 4 months Physical Exam Vital Signs: Temp Pulse Resp BP Pulse Ox 97.3 F 54 L 16 151/61 H 97 12/21/17 12:20 12/21/17 12:20 12/21/17 12:20 12/21/17 12:20 12/21/17 12:20 Intake & Output 12/20/17 12/21/17 12/22/17 06:59 06:59 06:59 Intake Total 460 900 250 Balance 460 900 250 Weight 91 kg 89 kg General appearance: PRESENT: no acute distress Eye exam: PRESENT: PERRLA Respiratory exam: PRESENT: chest wall tenderness Cardiovascular exam: PRESENT: +S1, +S2 GI/Abdominal exam: PRESENT: soft Neurological exam: PRESENT: alert, CN II-XII grossly intact Results Laboratory Results: 12/21/17 09:06 12/21/17 09:06 12/21/17 12/21/17 09:06 09:06 WBC 7.4 RBC 4.52 Hgb 11.6 L Hct 34.3 L MCV 76 L MCH 25.5 L MCHC 33.7 RDW 15.7 H Plt Count 231 Seg Neutrophils % 58.5 Lymphocytes % 25.6 Monocytes % 12.8 Eosinophils % 2.3 Basophils % 0.8 Absolute Neutrophils 4.3 Absolute Lymphocytes 1.9 Absolute Monocytes 1.0 Absolute Eosinophils 0.2 Absolute Basophils 0.1 Sodium 129.7 L Potassium 4.7 Chloride 94 L Carbon Dioxide 23 Anion Gap 13 BUN 59 H Creatinine 2.69 H Est GFR ( Amer) 21 L Est GFR (Non-Af Amer) 17 L Glucose 360 H Calcium 8.9 Total Bilirubin 0.1 L AST 17 ALT 28 Alkaline Phosphatase 103 Total Protein 6.1 L Albumin 3.4 L 12/13/17 12/13/17 12/13/17 04:00 10:10 16:20 Creatine Kinase CK-MB (CK-2) Troponin I 0.084 0.053 0.037 12/14/17 12/14/17 06:58 06:58 Creatine Kinase 80 CK-MB (CK-2) 1.11 Troponin I Impressions: Chest X-Ray 12/12/17 20:11 IMPRESSION: NO SIGNIFICANT RADIOGRAPHIC FINDING IN THE CHEST. Qualifiers - * PATEINT BEING DISCHARGED WITH ANY OF THE FOLLOWING DIAGNOSIS?: No
[2017-12-21 16:51] VITALS: BP 107/55
== END 2017-12-21 18:25 | DRG 304 ==
LOC: ER 19:53 → EH 12-13 01:01 → INTOOBSV 12-13 01:01 → OBSVTOIN 12-13 01:01 → ICU 12-13 04:28 → 3S 12-14 00:17
PROVIDERS: ADMIT Internal Medicine; ATTEND Internal Medicine
DX: I16.1 Hypertensive emergency (principal); N17.0 Acute kidney failure with tubular necrosis; I12.9 Hypertensive chronic kidney disease with stage 1 through stage 4 chronic kidney disease, or unspecified chronic kidney disease; N18.3 Chronic kidney disease, stage 3 (moderate); E11.22 Type 2 diabetes mellitus with diabetic chronic kidney disease; E11.43 Type 2 diabetes mellitus with diabetic autonomic (poly)neuropathy; K31.84 Gastroparesis; G89.29 Other chronic pain; M54.9 Dorsalgia, unspecified; I25.10 Atherosclerotic heart disease of native coronary artery without angina pectoris; E78.00 Pure hypercholesterolemia, unspecified; M19.90 Unspecified osteoarthritis, unspecified site; Z95.5 Presence of coronary angioplasty implant and graft; Z79.4 Long term (current) use of insulin; Z90.49 Acquired absence of other specified parts of digestive tract; Z79.82 Long term (current) use of aspirin; Z79.899 Other long term (current) drug therapy; Z88.6 Allergy status to analgesic agent; Z82.49 Family history of ischemic heart disease and other diseases of the circulatory system
CPT/HCPCS: 36415; 71046; 80048; 80053; 80061; 81001; 82550; 82553; 82962; 83036; 83735; 83880; 84100; 84443; 84484; 85025; 85730; 93005; 93010; 96374; 99285; G0378; J0360; J1644; J1815; J2405; J3490; S0119

== ENCOUNTER 2018-08-16 08:40 | Emergency (ER) | payer MEDICARE ==
--- NOTE | 2018-08-16 09:29 | ER Document Report ---
ED General - General Chief Complaint: Blood Pressure Problem Stated Complaint: BLOOD PRESSURE ISSUE, NAUSEA, HEADACHE Time Seen by Provider: 08/16/18 09:09 TRAVEL OUTSIDE OF THE [place] IN LAST 30 DAYS: No - HPI Notes: Patient is a 72-year-old female with a history of hypertension, type 2 diabetes , chronic kidney disease, gastroparesis who presents to the ED complaining of elevated blood pressure for the last 4 days with associated mild headache and nausea. Patient states that she does have "a little" chest tightness that started yesterday and has been the same since. Symptoms do not radiate. Patient states that she is able to ambulate without any dyspnea on exertion, shortness of breath, or worsening pain. Patient states that her headache is primarily frontal and left-sided. Patient has not taken any of her blood pressure medications this morning. She is urinating normally and having normal bowel movements. She denies any history of heart attack or stroke. Patient has had to be admitted in the past on a nicardipine drip on a couple occasions for hypertensive urgency. Denies any fever, head injury, neck pain, changes in vision/speech/mentation/hearing, URI, sore throat, palpitations, syncope, cough , shortness of breath, wheeze, dyspnea, abdominal pain, vomiting/diarrhea, urinary retention, dysuria, hematuria, loss of control of bowel or bladder, numbness/tingling, saddle anesthesia, muscle paralysis/weakness, or rash. - Related Data Allergies/Adverse Reactions: codeine [Codeine] Allergy (Mild, Verified 12/12/17 20:07) meperidine HCl [From Demerol] Allergy (Mild, Verified 12/12/17 20:07) morphine Allergy (Verified 12/12/17 20:07) pregabalin [From Lyrica] Allergy (Verified 08/16/18 08:48) Past Medical History - Social History Smoking Status: Never Smoker Family History: Reviewed & Not Pertinent, CAD - Past Medical History Cardiac Medical History: Reports: Hx Coronary Artery Disease, Hx Hypercholesterolemia, Hx Hypertension Neurological Medical History: Denies: Hx Seizures Endocrine Medical History: Reports: Hx Diabetes Mellitus Type 1, Hx Diabetes Mellitus Type 2 Renal/ Medical History: Reports: Hx Ovarian Cysts. Denies: Hx Peritoneal Dialysis Malignancy Medical History: Reports: Hx Colorectal Cancer - Status post colon resection. Musculoskeletal Medical History: Reports Hx Arthritis Psychiatric Medical History: Denies: Hx Depression Past Surgical History: Reports: Hx Cardiac Catheterization - stents x 2, Hx Gynecologic Surgery, Hx Tubal Ligation, Other - Colon resection. Denies: Hx Hysterectomy - Immunizations Immunizations up to date: Yes Hx Diphtheria, Pertussis, Tetanus Vaccination: Yes Review of Systems - Review of Systems -: Yes All other systems reviewed and negative Physical Exam - Vital signs Vitals: Temp Pulse Resp BP Pulse Ox 97.4 F 61 16 218/89 H 99 08/16/18 08:55 08/16/18 08:55 08/16/18 08:55 08/16/18 08:55 08/16/18 08:55 - Notes Notes: PHYSICAL EXAMINATION: GENERAL: Well-appearing, well-nourished and in no acute distress. A&Ox4. Answers questions appropriately. HEAD: Atraumatic, normocephalic. Non-tender. EYES: Pupils equal round and reactive to light, extraocular movements intact, sclera anicteric, conjunctiva are normal. No nystagmus. vis silver intact. ENT: EAC clear b/l. TM's intact b/l without erythema, fluid, or perforation. Nares patent and without discharge. oropharynx clear without exudates. No tonsilar hypertrophy or erythema. Moist mucous membranes. No sinus tenderness. NECK: Normal range of motion, supple without lymphadenopathy. No rigidity/ meningismus. No midline tenderness. LUNGS: Breath sounds clear to auscultation bilaterally and equal. No wheezes rales or rhonchi. HEART: Regular rate and rhythm without murmurs, rubs, gallops. ABDOMEN: Soft, nondistended abdomen. No guarding, no rebound. Normal bowel sounds present. No CVA tenderness bilaterally. + mild epigastric tenderness. Manuel neg. McBurney unremarkable. Musculoskeletal: Ext's b/l: FROM to passive/active. Strength 5+/5. No deficits noted. No bony tenderness of extremities. Extremities: No cyanosis, clubbing, or edema b/l. Peripheral pulses 2+. Capillary refill less than 2 seconds. NEUROLOGICAL: NIH 0. GCS 15. Cranial nerves grossly intact. Normal speech, normal gait. Normal sensory, motor exams. Reflexes 2+ b/l. SHIVANI's negative. Pronator drift negative. Heel/swan, finger/nose wnl. PSYCH: Normal mood, normal affect. SKIN: Warm, Dry, normal turgor, no rashes or lesions noted. Course - Re-evaluation Re-evalutation: 08/16/18 09:27 Pt's Bp is elevated and pt is symptomatic. Concerning for urgency vs emergency. We will obtain imaging, labs, and start an IV. The patient will be taking her morning home BP meds after we give her some food and we will re- evaluate thereafter. Otherwise, pt appears well and is not altered. No focal neurological deficits. We will consider clonidine and/or nicardipine drip if needed. Pt in agreement. 08/16/18 09:35 Pt took her Clonidine 0.3mg, Lasix 40mg, Valsartan/HCTZ 320/325mg, Toprol 100mg , and Amlodipine 10mg (her morning/daily meds). 08/16/18 14:[address] Nettles and Dr. Dove who are both in agreement with dispo /plan at this time: Patient is an afebrile, well-hydrated 72-year-old female who presents to the ED with elevated BP and associated nausea, headache, and chest tightness. Vitals are acceptable without any significant tachycardia, tachypnea, or hypoxia. BP has improved after pt took her home medications. PE is otherwise unremarkable. Patient is nontoxic-appearing and is tolerating p.o. without any difficulties. Pt is currently asymptomatic. She had complete resolution of symptoms with her meds and one dose of fentanyl 50mcg. CBC, CMP, EKG/cardiac enzymes 2, chest x-ray, BNP, Lipase are all unremarkable for any acute pathology. Her abnormal labs are baseline. Patient does not have any headache , chest pain, dyspnea, or shortness of breath. Patient's presentation and symptomatology creates low suspicion for acute intracranial pathology, ACS, PE, pneumothorax, pericarditis, dissection, respiratory compromise, severe dehydration, sepsis, meningitis, end-organ damage, or other systemic emergent condition at this time. Patient is aware that this condition can change from initial presentation and she needs to monitor symptoms closely and seek medical attention for any acute changes. Pt is feeling better and would like to go home. Recommend conservative measures for symptoms. Recheck with your PCM on Sunday. Consider consult with Cardiology. Return to the ED with any worsening/ concerning symptoms otherwise as reviewed in discharge. Patient is in agreement. - Vital Signs Vital signs: Temp Pulse Resp BP Pulse Ox 97.4 F 61 12 198/77 H 99 08/16/18 08:55 08/16/18 08:55 08/16/18 13:01 08/16/18 13:01 08/16/18 13:01 - Laboratory Result Diagrams: 08/16/18 10:50 08/16/18 09:20 Laboratory results interpreted by me: 08/16/18 08/16/18 08/16/18 09:20 09:20 10:50 Hgb 11.5 L Hct 34.5 L MCV 73 L MCH 24.4 L RDW 15.6 H BUN 23 H Creatinine 2.30 H Est GFR ( Amer) 25 L Est GFR (Non-Af Amer) 21 L Glucose 134 H Alkaline Phosphatase 142 H NT-Pro-B Natriuret Pep 3380 H Total Protein 6.1 L Albumin 3.0 L Urine Protein Urine Glucose (UA) 08/16/18 11:05 Hgb Hct MCV MCH RDW BUN Creatinine Est GFR ( Amer) Est GFR (Non-Af Amer) Glucose Alkaline Phosphatase NT-Pro-B Natriuret Pep Total Protein Albumin Urine Protein >=500 H Urine Glucose (UA) 50 H Discharge - Discharge Clinical Impression: Elevated blood pressure reading, Chest tightness Headache Qualifiers: Headache type: unspecified Headache chronicity pattern: acute headache Intractability: not intractable Qualified Code(s): R51 - Headache Condition: Stable Disposition: HOME, SELF-CARE Instructions: Chest Pain of Unclear Cause ([facility]), Headache ([facility]), High Blood Pressure, Requiring Treatment ([facility]) Additional Instructions: Maintain adequate fluid and food intake Take home medications as directed Low sodium/fat diet Weight control Monitor blood pressure daily and keep a log Monitor symptoms for any acute changes Recheck with your PCM in 3-5 days Consider a follow-up with cardiology Return to the ED with any worsening symptoms and/or development of fever, headache, changes in behavior/mentation/vision/speech, chest pain, palpitations , syncope, shortness of breath, trouble breathing, abdominal pain, n/v/d, blood in stool/urine, loss of control of bowel/bladder, urinary retention, muscle weakness/paralysis, saddle anesthesia, numbness/tingling, or other worsening symptoms that are concerning to you. Forms: Elevated Blood Pressure Referrals: QUINCY ALEJO MD [Primary Care Provider] - 08/19/18
--- NOTE | 2018-08-16 10:27 | RADIOLOGY REPORT (SQ) ---
EXAM DESCRIPTION: CT HEAD WITHOUT COMPLETED DATE/TIME: 08/16/2018 10:17 am REASON FOR STUDY: headache, elevated BP COMPARISON: 09/20/2016. TECHNIQUE: Axial images acquired through the brain without intravenous contrast. Images reviewed wi th bone, brain and subdural windows. Additional sagittal and coronal reconstructions were generated. Images stored on PACS. All CT scanners at this facility use dose modulation, iterative reconstruction, and/or weight based d osing when appropriate to reduce radiation dose to as low as reasonably achievable (ALARA). [facility]: Dose Right [facility]: CareDose [facility]: Dose Right [facility]: Teradose 4D [facility]: [employer] RADIATION DOSE: CT Rad equipment meets quality standard of care and radiation dose reduction techniq ues were employed. CTDIvol: 53.2 mGy. DLP: 1017 mGy-cm.mGy. LIMITATIONS: None. FINDINGS: VENTRICLES: Prominent. CEREBRUM: No masses. No hemorrhage. No midline shift. Areas of low density in the white matter mos t likely due to chronic micro-vascular ischemic change. No evidence for acute infarction. CEREBELLUM: No masses. No hemorrhage. No alteration of density. No evidence for acute infarction. EXTRAAXIAL SPACES: Age-related involutional change. No fluid collections. No masses. ORBITS AND GLOBE: No intra- or extraconal masses. Normal contour of globe without masses. CALVARIUM: No fracture. PARANASAL SINUSES: No fluid or mucosal thickening. SOFT TISSUES: No mass or hematoma. OTHER: No other significant finding. IMPRESSION: CHRONIC CHANGES OF ATROPHY AND MICROVASCULAR ISCHEMIA. NO ACUTE PROCESS. EVIDENCE OF ACUTE STROKE: NO. TECHNICAL DOCUMENTATION: JOB ID: [id number] Quality ID # [id number]: Final reports with documentation of one or more dose reduction techniques (e.g., Au tomated exposure control, adjustment of the mA and/or kV according to patient size, use of iterative reconstruction technique) 2010 [employer]- All Rights Reserved Reading location - IP/workstation name: [email or web address]
--- NOTE | 2018-08-16 10:33 | RADIOLOGY REPORT (SQ) ---
EXAM DESCRIPTION: CHEST SINGLE VIEW COMPLETED DATE/TIME: 08/16/2018 10:21 am REASON FOR STUDY: chest tightness, elevated BP COMPARISON: 12/12/2017. NUMBER OF VIEWS: One view. TECHNIQUE: Single frontal radiographic view of the chest acquired. LIMITATIONS: None. FINDINGS: LUNGS AND PLEURA: No opacities, masses or pneumothorax. No pleural effusion. MEDIASTINUM AND HILAR STRUCTURES: No masses. Contour normal. HEART AND VASCULAR STRUCTURES: Heart enlarged without failure. Normal vasculature. BONES: No acute findings. HARDWARE: None in the chest. OTHER: No other significant finding. IMPRESSION: HEART ENLARGED WITHOUT FAILURE. NO OTHER SIGNIFICANT RADIOGRAPHIC FINDING IN THE CHEST. TECHNICAL DOCUMENTATION: JOB ID: [id number] [employer]- All Rights Reserved Reading location - IP/workstation name: [email or web address]
[2018-08-16] MEDS ORDERED: FENTANYL CITRATE INJ/PF 100 MCG/2 ML AMPUL IV ONE (10:57)
[2018-08-16 11:02] LABS: ABSOLUTE BASOPHILS # (AUTO) 0.1 10^3/uL (0.0-0.2); ABSOLUTE EOSINOPHILS # (AUTO) 0.2 10^3/uL (0.0-0.6); ABSOLUTE LYMPHOCYTES (AUTO) 1.8 10^3/uL (0.5-4.7); ABSOLUTE MONOCYTES (AUTO) 0.7 10^3/uL (0.1-1.4); ABSOLUTE NEUT (AUTO) 5.6 10^3/uL (1.7-8.2); HEMATOCRIT 34.5 % (36.0-47.0); HEMOGLOBIN 11.5 g/dL (12.0-15.5); LYMPHOCYTES % (AUTO) 21.5 % (13-45); MEAN CORPUSCULAR HEMOGLOBIN 24.4 pg (27.0-33.4); MEAN CORPUSCULAR HGB CONC 33.5 g/dL (32.0-36.0); MEAN CORPUSCULAR VOLUME 73 fl (80-97); MONOCYTES % (AUTO) 8.3 % (3-13); PLATELET COUNT 306 10^3/uL (150-450); RED BLOOD COUNT 4.73 10^6/uL (3.72-5.28); RED CELL DISTRIBUTION WIDTH 15.6 % (11.5-14.0); SEGMENTED NEUTROPHILS % (AUTO) 67.2 % (42-78); TOTAL CELLS COUNTED % (AUTO) 100 %; WHITE BLOOD COUNT 8.3 10^3/uL (4.0-10.5)
[2018-08-16 11:16] LABS: ALANINE AMINOTRANSFERASE 28 U/L (9-52); ALKALINE PHOSPHATASE 142 U/L (38-126); ANION GAP 10 (5-19); ASPARTATE AMINO TRANSFERASE 29 U/L (14-36); BILIRUBIN,DIRECT 0.2 mg/dL (0.0-0.4); BILIRUBIN,TOTAL 0.3 mg/dL (0.2-1.3); BLOOD UREA NITROGEN 23 mg/dL (7-20); CALCIUM 8.7 mg/dL (8.4-10.2); CARBON DIOXIDE 26 mmol/L (22-30); CHLORIDE 106 mmol/L (98-107); GLUCOSE 134 mg/dL (75-110); LIPASE 214.6 U/L (23-300); POTASSIUM 3.9 mmol/L (3.6-5.0); SODIUM 141.7 mmol/L (137-145); TOTAL PROTEIN 6.1 g/dL (6.3-8.2)
[2018-08-16] MEDS ORDERED: ONDANSETRON HCL INJ/PF 4 MG/2 ML SDV IV ONE (11:43)
[2018-08-16 12:01] LABS: APPEARANCE,URINE CLEAR; BILIRUBIN,URINE NEGATIVE (NEGATIVE); COLOR,URINE STRAW; GLUCOSE, URINE 50 mg/dL (NEGATIVE); KETONES,URINE NEGATIVE (NEGATIVE); LEUKOCYTE ESTERASE,URINE NEGATIVE (NEGATIVE); NITRITE,URINE NEGATIVE (NEGATIVE); PROTEIN,URINE >=500 mg/dL (NEGATIVE); URIC ACID CRYSTALS,URINE RARE /HPF; URINE SPECIFIC GRAVITY 1.009; UROBILINOGEN,URINE NEGATIVE mg/dL (<2.0)
[2018-08-16 13:10] VITALS: BP 198/77
--- NOTE | 2018-08-16 19:19 | EKG REPORT ---
SEVERITY:- ABNORMAL ECG - SINUS RHYTHM INCOMPLETE RBBB AND LAFB PROBABLE LVH WITH SECONDARY REPOL ABNRM CONSIDER ANTERIOR INFARCT : Confirmed by: Jennifer De Jesus MD 16-Aug-2018 19:17:58
== END 2018-08-16 16:20 | disposition home or self-care (01) ==
LOC: ER 08:40
DX: R07.9 Chest pain, unspecified (principal); R51 Headache; R11.0 Nausea; I12.9 Hypertensive chronic kidney disease with stage 1 through stage 4 chronic kidney disease, or unspecified chronic kidney disease; E11.22 Type 2 diabetes mellitus with diabetic chronic kidney disease; N18.9 Chronic kidney disease, unspecified; I25.10 Atherosclerotic heart disease of native coronary artery without angina pectoris
CPT/HCPCS: 93005; 99284; 96374; 96375; 36415; 87086; 83690; 85025; 87088; 80053; 81001; 84484; 83880; 71045; 70450; 93010; J3010; J2405

== ENCOUNTER 2018-11-18 09:18 | Inpatient (IN) | payer MEDICARE ==
[2018-11-18] MEDS ORDERED: ONDANSETRON HCL INJ/PF 4 MG/2 ML SDV IV ONE ×3 (09:36→16:31)
[2018-11-18 09:40] LABS: ABSOLUTE BASOPHILS # (AUTO) 0.1 10^3/uL (0.0-0.2); ABSOLUTE LYMPHOCYTES (AUTO) 0.7 10^3/uL (0.5-4.7); ABSOLUTE MONOCYTES (AUTO) 0.3 10^3/uL (0.1-1.4); BASOPHILS % (AUTO) 0.6 % (0-2); HEMOGLOBIN 12.9 g/dL (12.0-15.5); LYMPHOCYTES % (AUTO) 5.3 % (13-45); MEAN CORPUSCULAR HGB CONC 32.9 g/dL (32.0-36.0); MEAN CORPUSCULAR VOLUME 76 fl (80-97); PLATELET COUNT 351 10^3/uL (150-450); RED BLOOD COUNT 5.15 10^6/uL (3.72-5.28); RED CELL DISTRIBUTION WIDTH 15.6 % (11.5-14.0); SEGMENTED NEUTROPHILS % (AUTO) 92.1 % (42-78); TOTAL CELLS COUNTED % (AUTO) 100 %; WHITE BLOOD COUNT 13.1 10^3/uL (4.0-10.5)
[2018-11-18] MEDS ORDERED: INSULIN REG, HUMAN 100 UNIT/ML 3 ML VIAL (PYX) IV ONE (09:52)
--- NOTE | 2018-11-18 10:00 | ER Document Report ---
ED General - General Chief Complaint: Weakness Stated Complaint: WEAKNESS Time Seen by Provider: 11/18/18 09:42 Notes: Patient brought in by EMS for feeling extremely weak. She has been vomiting since last evening and vomited all night long, perhaps as many as 20 times, according to her . Feeling extremely weak. Patient is an insulin- dependent diabetic. Blood sugars have been running in the 400s. Has not been able to take her blood pressure medicine or any other medications since early yesterday. Has not had any diarrhea. Has had some cold symptoms. Slight tightness in chest, but no chest pain. No significant cough or chest congestion. Denies any fever. TRAVEL OUTSIDE OF THE [place] IN LAST 30 DAYS: No - Related Data Allergies/Adverse Reactions: codeine [Codeine] Allergy (Mild, Verified 12/12/17 20:07) meperidine HCl [From Demerol] Allergy (Mild, Verified 12/12/17 20:07) morphine Allergy (Verified 12/12/17 20:07) pregabalin [From Lyrica] Allergy (Verified 08/16/18 08:48) Past Medical History - Social History Smoking Status: Unknown if Ever Smoked Family History: Reviewed & Not Pertinent, CAD - Past Medical History Cardiac Medical History: Reports: Hx Coronary Artery Disease, Hx Hypercholesterolemia, Hx Hypertension Endocrine Medical History: Reports: Hx Diabetes Mellitus Type 1, Hx Diabetes Mellitus Type 2 Renal/ Medical History: Reports: Hx Ovarian Cysts Malignancy Medical History: Reports: Hx Colorectal Cancer - Status post colon resection. Musculoskeletal Medical History: Reports Hx Arthritis Past Surgical History: Reports: Hx Cardiac Catheterization - stents x 2, Hx Gynecologic Surgery, Hx Tubal Ligation, Other - Colon resection. Denies: Hx Hysterectomy - Immunizations Immunizations up to date: Yes Hx Diphtheria, Pertussis, Tetanus Vaccination: Yes Review of Systems - Review of Systems Notes: REVIEW OF SYSTEMS: CONSTITUTIONAL : Denies fever. Complains of generalized weakness. EENT: Denies eye, ear, nose or mouth or throat pain or other symptoms. CARDIOVASCULAR: Denies chest pain. RESPIRATORY: Denies cough, chest congestion, or shortness of breath. GASTROINTESTINAL: See HPI. GENITOURINARY: Denies difficulty or painful urinating, urinary frequency, blood in urine. MUSCULOSKELETAL: Denies back or neck pain. Denies joint pain or swelling. SKIN: Denies rash or skin lesions. NEUROLOGICAL: Denies LOC or altered mental status. Denies headache. Denies sensory loss or motor deficits. ALL OTHER SYSTEMS REVIEWED AND NEGATIVE. Physical Exam - Vital signs Vitals: Resp Pulse Ox 12 97 11/18/18 09:25 11/18/18 09:25 PHYSICAL EXAMINATION: GENERAL: Ill appearing, in no acute distress. Understands and shakes head to an swer questions. Denies pain anywhere. Complains of severe weakness. Interpretation: Hypertensive, Tachycardic. No: Febrile Notes: PHYSICAL EXAMINATION: GENERAL: Sleepy appearing, but in no acute distress and answers questions appropriately. Pressure extremely high at 230/120, or thereabouts. HEAD: Atraumatic, normocephalic. EYES: Pupils equal round and reactive to light, extraocular movements intact. ENT: oropharynx clear without exudates. Moist mucous membranes. NECK: Normal range of motion, supple. LUNGS: Breath sounds clear and equal bilaterally. HEART: Regular rate and rhythm without murmurs. ABDOMEN: Soft, nontender. No guarding or rebound. No masses. BACK: No tenderness throughout entire back. EXTREMITIES: Normal range of motion without pain. NEUROLOGICAL: Normal speech, gait not tested. Normal sensory, motor, and reflex exams. Awake, alert, and oriented x3. C PSYCH: Normal mood, normal affect. SKIN: Warm, dry, no rashes. Course - Re-evaluation Re-evalutation: 11/18/18 10:00 Patient was given 5 units of regular insulin IV. She has IV saline going wide open for 2 L. 11/18/18 14:25 Attempted to lower patient's blood pressure by giving her Lopressor 5 mg IV initially. I chose that medication because her heart rate was 130. Later, I gave her 10 mg of hydralazine IV. Subsequently, spoke with Dr. Slater, who is the patient's primary care, and he will admit her to IM. He recommended a nitroglycerin drip, which was started on the patient. - Vital Signs Vital signs: Temp Pulse Resp BP Pulse Ox 98.4 F 73 16 188/88 H 97 11/19/18 12:00 11/19/18 12:00 11/19/18 12:00 11/19/18 12:00 11/19/18 12:00 - Laboratory Result Diagrams: 11/19/18 06:12 11/19/18 11:47 Laboratory results interpreted by me: 11/18/18 11/18/18 11/18/18 08:48 08:48 08:48 WBC 13.1 H MCV 76 L MCH 25.0 L RDW 15.6 H Seg Neutrophils % 92.1 H Lymphocytes % 5.3 L Monocytes % 2.0 L Absolute Neutrophils 12.0 H Sodium 146.3 H BUN 42 H Creatinine 2.91 H Est GFR ( Amer) 19 L Est GFR (Non-Af Amer) 16 L Glucose 434 H* POC Glucose Hemoglobin A1c % 8.2 H Direct Bilirubin 0.5 H Urine Protein Urine Glucose (UA) Urine Ketones Urine Blood 11/18/18 11/18/18 10:32 12:54 WBC MCV MCH RDW Seg Neutrophils % Lymphocytes % Monocytes % Absolute Neutrophils Sodium BUN Creatinine Est GFR ( Amer) Est GFR (Non-Af Amer) Glucose POC Glucose 195 H Hemoglobin A1c % Direct Bilirubin Urine Protein >=500 H Urine Glucose (UA) >=500 H Urine Ketones 20 H Urine Blood SMALL H Critical Care Note - Critical Care Note Total time excluding time spent on procedures (mins): 45 Discharge - Discharge Clinical Impression: Hyperglycemia, Hypertensive urgency, Nausea and vomiting, Uncontrolled hypertension, Acute kidney injury superimposed on chronic kidney disease Condition: Fair Disposition: ADMITTED INPATIENT Admitting Provider: Mamie Unit Admitted: RITESH
[2018-11-18 10:01] LABS: ALANINE AMINOTRANSFERASE 19 U/L (9-52); ALBUMIN 4.2 g/dL (3.5-5.0); ALKALINE PHOSPHATASE 108 U/L (38-126); ANION GAP 19 (5-19); ASPARTATE AMINO TRANSFERASE 26 U/L (14-36); BILIRUBIN,DIRECT 0.5 mg/dL (0.0-0.4); BILIRUBIN,TOTAL 0.5 mg/dL (0.2-1.3); BLOOD UREA NITROGEN 42 mg/dL (7-20); CALCIUM 9.9 mg/dL (8.4-10.2); CARBON DIOXIDE 24 mmol/L (22-30); CHLORIDE 103 mmol/L (98-107); CREATINE KINASE 57 U/L (30-135); POTASSIUM 3.6 mmol/L (3.6-5.0); SODIUM 146.3 mmol/L (137-145); TOTAL PROTEIN 7.4 g/dL (6.3-8.2)
[2018-11-18 10:13] LABS: CREATINE KINASE MB 1.16 ng/mL (<4.55)
[2018-11-18] MEDS ORDERED: METOPROLOL TARTRATE PF/INJ 5 MG/5 ML SDV IV ONE ×2 (10:13→21:30)
[2018-11-18 10:18] LABS: GLUCOSE 434 mg/dL (75-110)
[2018-11-18 10:19] LABS: TROPONIN I 0.058 ng/mL
--- NOTE | 2018-11-18 10:28 | RADIOLOGY REPORT (SQ) ---
EXAM DESCRIPTION: CHEST SINGLE VIEW COMPLETED DATE/TIME: 11/18/2018 10:11 am REASON FOR STUDY: Excessive vomiting, weakness, tightness in chest COMPARISON: 08/16/2018 EXAM PARAMETERS: NUMBER OF VIEWS: One view. TECHNIQUE: Single frontal radiographic view of the chest acquired. RADIATION DOSE: NA LIMITATIONS: None. FINDINGS: LUNGS AND PLEURA: No opacities, masses or pneumothorax. No pleural effusion. MEDIASTINUM AND HILAR STRUCTURES: No masses. Contour normal. HEART AND VASCULAR STRUCTURES: Heart normal in size. Normal vasculature. BONES: No acute findings. HARDWARE: None in the chest. OTHER: No other significant finding. IMPRESSION: NO ACUTE RADIOGRAPHIC FINDING IN THE CHEST. TECHNICAL DOCUMENTATION: JOB ID: [id number] [employer]- All Rights Reserved Reading location - IP/workstation name: [email or web address]
[2018-11-18] MEDS: NORMAL SALINE 1000 ML 1,000 ML IV PRN ×2 (10:44→11:55)
[2018-11-18 10:54] LABS: APPEARANCE,URINE CLOUDY; BILIRUBIN,URINE NEGATIVE (NEGATIVE); COLOR,URINE YELLOW; GLUCOSE, URINE >=500 mg/dL (NEGATIVE); KETONES,URINE 20 mg/dL (NEGATIVE); LEUKOCYTE ESTERASE,URINE NEGATIVE (NEGATIVE); NITRITE,URINE NEGATIVE (NEGATIVE); PROTEIN,URINE >=500 mg/dL (NEGATIVE); URINE SPECIFIC GRAVITY 1.017; UROBILINOGEN,URINE NEGATIVE mg/dL (<2.0)
[2018-11-18 11:33] LABS: VENOUS BLOOD BASE EXCESS -3.9 mmol/L; VENOUS BLOOD HCO3 21.1 mmol/L (20-32); VENOUS BLOOD PH 7.36 (7.30-7.42)
--- NOTE | 2018-11-18 11:47 | RADIOLOGY REPORT (SQ) ---
EXAM DESCRIPTION: CT HEAD WITHOUT COMPLETED DATE/TIME: 11/18/2018 11:33 am REASON FOR STUDY: Vomiting and generalized weakness COMPARISON: None. TECHNIQUE: Axial images acquired through the brain without intravenous contrast. Images reviewed wi th bone, brain and subdural windows. Additional sagittal and coronal reconstructions were generated. Images stored on PACS. All CT scanners at this facility use dose modulation, iterative reconstruction, and/or weight based d osing when appropriate to reduce radiation dose to as low as reasonably achievable (ALARA). [facility]: Dose Right [facility]: CareDose [facility]: Dose Right [facility]: Teradose 4D [facility]: NSH [employer] RADIATION DOSE: CT Rad equipment meets quality standard of care and radiation dose reduction techniq ues were employed. CTDIvol: 53.2 mGy. DLP: 1044 mGy-cm.mGy. LIMITATIONS: None. FINDINGS: VENTRICLES: Prominent. CEREBRUM: No masses. No hemorrhage. No midline shift. Areas of low density in the white matter mos t likely due to chronic micro-vascular ischemic change. No evidence for acute infarction. CEREBELLUM: No masses. No hemorrhage. No alteration of density. No evidence for acute infarction. EXTRAAXIAL SPACES: Age-related involutional change. No fluid collections. No masses. ORBITS AND GLOBE: No intra- or extraconal masses. Normal contour of globe without masses. CALVARIUM: No fracture. PARANASAL SINUSES: No fluid or mucosal thickening. SOFT TISSUES: No mass or hematoma. OTHER: No other significant finding. IMPRESSION: CHRONIC CHANGES OF ATROPHY AND MICROVASCULAR ISCHEMIA. NO ACUTE PROCESS. EVIDENCE OF ACUTE STROKE: NO. TECHNICAL DOCUMENTATION: JOB ID: [id number] Quality ID # [id number]: Final reports with documentation of one or more dose reduction techniques (e.g., Au tomated exposure control, adjustment of the mA and/or kV according to patient size, use of iterative reconstruction technique) 2010 [employer]- All Rights Reserved Reading location - IP/workstation name: [email or web address]
[2018-11-18] MEDS ORDERED: HYDRALAZINE HCL INJ/PF 20 MG/1 ML SDV IV ONE ×2 (12:05→19:28)
[2018-11-18] MEDS ORDERED: NITROGLYCERIN/D5W 50 MG/250 ML RTUINJ IV PRN (12:34)
[2018-11-18] MEDS ORDERED: DEXTROSE 50%-WATER 25 GM/50 ML DISP.SYRIN IV PRN ×2 (17:07)
[2018-11-18] MEDS ORDERED: GLUCAGON,HUMAN RECOMB 1 MG INJ IM PRN (17:07)
[2018-11-18] MEDS ORDERED: DEXTROSE 40% GEL 15 GM TUBE PO PRN ×2 (17:07)
[2018-11-18 17:37] LABS: LIPASE 134.8 U/L (23-300); PHOSPHORUS 4.2 mg/dL (2.5-4.5)
[2018-11-18 17:48] LABS: INTERNATIONAL RATION (INR) 1.04; PARTIAL THROMBOPLASTIN TIME 29.7 SEC (23.5-35.8); PROTHROMBIN TIME 14.1 SEC (11.4-15.4)
[2018-11-18] MEDS ORDERED: NORMAL SALINE 100 ML with INSULIN REGULAR, HUMAN 100 UNIT IV PRN ×2 (18:00)
[2018-11-18 18:02] LABS: ANION GAP 12 (5-19); BLOOD UREA NITROGEN 37 mg/dL (7-20); CALCIUM 9.3 mg/dL (8.4-10.2); CARBON DIOXIDE 25 mmol/L (22-30); CHLORIDE 109 mmol/L (98-107); CREATINE KINASE 79 U/L (30-135); GLUCOSE 289 mg/dL (75-110); POTASSIUM 3.2 mmol/L (3.6-5.0); SODIUM 146.1 mmol/L (137-145)
[2018-11-18 18:06] LABS: FREE T4 (FREE THYROXINE) 1.86 ng/dL (0.78-2.19)
[2018-11-18 18:14] LABS: CREATINE KINASE MB 2.16 ng/mL (<4.55)
[2018-11-18 18:20] LABS: THYROID STIMULATING HORMONE 2.33 uIU/mL (0.47-4.68)
[2018-11-18 18:20] LABS: TROPONIN I 0.119 ng/mL
[2018-11-18 18:58] LABS: ARTERIAL BLOOD H2CO3 1.12 mmol/L (1.05-1.35); ARTERIAL BLOOD HCO3 25.6 mmol/L (20-24); ARTERIAL BLOOD O2 SATURATION 95.7 % (94-98); ARTERIAL BLOOD PCO2 37.2 mmHg (35-45); ARTERIAL BLOOD PH 7.46 (7.35-7.45); ARTERIAL BLOOD PO2 74.4 mmHg (80-100); ARTERIAL BLOOD TOTAL CO2 26.8 mmol/L (21-25)
[2018-11-18 19:00] LABS: ARTERIAL BLOOD FIO2 ROOM AIR
[2018-11-18] MEDS ORDERED: HYDRALAZINE HCL 25 MG TABLET PO SCH ×2 (19:30)
[2018-11-18] MEDS: HEPARIN SOD (PORCINE) 5,000 UNIT/ML 1 ML SYRINGE SUBCUT SCH (20:04)
--- NOTE | 2018-11-18 20:37 | PDOC H&P ---
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 I saw her in the emergency room ,she complains of non specific abdominal symptoms, a CAT scan of the abdomen and pelvis was done without contrast, it demonstrated no acute pathology. Past Medical History Cardiac Medical History: Reports: Coronary Artery Disease, Hyperlipidema, Hypertension Endocrine Medical History: Reports: Diabetes Mellitus Type 2 Renal/ Medical History: Reports: Other - Diabetes nephropathy Musculoskeltal Medical History: Reports: Arthritis Past Surgical History Past Surgical History: Reports: Cardiac Catheterization - stents x 2, Tubal Ligation, Other - Colon resection Social History Smoking Status: Never Smoker Frequency of Alcohol Use: None Hx Recreational Drug Use: No Drugs: None Hx Prescription Drug Abuse: No Family History Family History: Reviewed & Not Pertinent, CAD Parental Family History Reviewed: Yes Children Family History Reviewed: Yes Sibling(s) Family History Reviewed.: Yes Medication/Allergy Home Medications: Aspirin [Aspirin EC] 81 mg PO DAILY 12/13/17 Atorvastatin Calcium [Lipitor 80 mg Tablet] 80 mg PO QHS 12/13/17 Ergocalciferol (Vitamin D2) [Drisdol 50,000 unit (1.25MG) Capsule] 50,000 unit PO ROSEN@1000 12/13/17 Furosemide [Lasix 40 mg Tablet] 40 mg PO BID 12/13/17 Metoprolol Tartrate [Lopressor 100 mg Tablet] 100 mg PO Q12 12/13/17 Valsartan/Hydrochlorothiazide [Diovan Hct 320-25 mg Tablet] 1 tab PO DAILY 12/13/17 Hydralazine HCl [Apresoline 25 mg Tablet] 25 mg PO Q8 #0 tablet 12/21/17 Amlodipine Besylate [Norvasc 10 mg Tablet] 10 mg PO DAILY 11/18/18 Clonidine HCl [Catapres 0.3 mg Tablet] 0.3 mg PO Q8 11/18/18 Isosorbide Mononitrate [Imdur 30 mg Tablet.er] 30 mg PO DAILY 11/18/18 Allergies/Adverse Reactions: codeine [Codeine] Allergy (Mild, Verified 12/12/17 20:07) meperidine HCl [From Demerol] Allergy (Mild, Verified 12/12/17 20:07) morphine Allergy (Verified 12/12/17 20:07) pregabalin [From Lyrica] Allergy (Verified 08/16/18 08:48) Review of Systems Constitutional: ABSENT: chills, fever(s), headache(s), weight gain, weight loss Eyes: ABSENT: visual disturbances Ears: ABSENT: hearing changes Cardiovascular: ABSENT: chest pain, dyspnea on exertion, edema, orthropnea, palp itations Respiratory: ABSENT: cough, hemoptysis Gastrointestinal: PRESENT: abdominal pain, nausea, vomiting. ABSENT: constipation, diarrhea, hematemesis, hematochezia Genitourinary: ABSENT: dysuria, hematuria Musculoskeletal: ABSENT: joint swelling Integumentary: ABSENT: rash, wounds Neurological: ABSENT: abnormal gait, abnormal speech, confusion, dizziness, focal weakness, syncope Psychiatric: ABSENT: anxiety, depression, homidical ideation, suicidal ideation Endocrine: ABSENT: cold intolerance, heat intolerance, menstrual abnormalities, polydipsia, polyuria Hematologic/Lymphatic: ABSENT: easy bleeding, easy bruising, lymphadenopathy Physical Exam Vital Signs: Temp Pulse Resp BP Pulse Ox 98.7 F 128 H 16 202/90 H 97 11/18/18 18:55 11/18/18 18:55 11/18/18 18:55 11/18/18 18:55 11/18/18 18:55 Intake & Output 11/17/18 11/18/18 11/19/18 06:59 06:59 06:59 Intake Total 2250 Balance 2250 Weight 84.1 kg General appearance: PRESENT: no acute distress Head exam: PRESENT: atraumatic, normocephalic Eye exam: PRESENT: conjunctiva pink, EOMI, PERRLA Ear exam: PRESENT: normal external ear exam Mouth exam: PRESENT: moist, tongue midline Neck exam: PRESENT: full ROM Respiratory exam: PRESENT: clear to auscultation jeanette Cardiovascular exam: PRESENT: RRR, +S1, +S2 Vascular exam: PRESENT: normal capillary refill GI/Abdominal exam: PRESENT: normal bowel sounds, soft Rectal exam: PRESENT: deferred Neurological exam: PRESENT: alert Skin exam: PRESENT: dry, intact, warm Results Laboratory Results: 11/18/18 08:48 11/18/18 17:25 11/18/18 11/18/18 11/18/18 08:48 08:48 08:48 WBC 13.1 H RBC 5.15 Hgb 12.9 Hct 39.0 MCV 76 L MCH 25.0 L MCHC 32.9 RDW 15.6 H Plt Count 351 Seg Neutrophils % 92.1 H Lymphocytes % 5.3 L Monocytes % 2.0 L Eosinophils % 0.0 Basophils % 0.6 Absolute Neutrophils 12.0 H Absolute Lymphocytes 0.7 Absolute Monocytes 0.3 Absolute Eosinophils 0.0 Absolute Basophils 0.1 Carbonic Acid HCO3/H2CO3 Ratio ABG pH ABG pCO2 ABG pO2 ABG HCO3 ABG O2 Saturation ABG Base Excess VBG pH VBG pCO2 VBG HCO3 VBG Base Excess FiO2 Sodium 146.3 H Potassium 3.6 Chloride 103 Carbon Dioxide 24 Anion Gap 19 BUN 42 H Creatinine 2.91 H Est GFR ( Amer) 19 L Est GFR (Non-Af Amer) 16 L Glucose 434 H* Calcium 9.9 Phosphorus 4.2 Magnesium 2.1 Total Bilirubin 0.5 AST 26 ALT 19 Alkaline Phosphatase 108 Ammonia Total Protein 7.4 Albumin 4.2 Amylase 90 Lipase 134.8 TSH Free T4 Urine Color Urine Appearance Urine pH Ur Specific [place] Urine Protein Urine Glucose (UA) Urine Ketones Urine Blood Urine Nitrite Ur Leukocyte Esterase Urine WBC (Auto) Urine RBC (Auto) 11/18/18 11/18/18 11/18/18 08:48 10:32 11:14 WBC RBC Hgb Hct MCV MCH MCHC RDW Plt Count Seg Neutrophils % Lymphocytes % Monocytes % Eosinophils % Basophils % Absolute Neutrophils Absolute Lymphocytes Absolute Monocytes Absolute Eosinophils Absolute Basophils Carbonic Acid HCO3/H2CO3 Ratio ABG pH ABG pCO2 ABG pO2 ABG HCO3 ABG O2 Saturation ABG Base Excess VBG pH 7.36 VBG pCO2 38.0 VBG HCO3 21.1 VBG Base Excess -3.9 FiO2 Sodium Potassium Chloride Carbon Dioxide Anion Gap BUN Creatinine Est GFR ( Amer) Est GFR (Non-Af Amer) Glucose Calcium Phosphorus Magnesium Total Bilirubin AST ALT Alkaline Phosphatase Ammonia Total Protein Albumin Amylase Lipase TSH 2.33 Free T4 1.86 Urine Color YELLOW Urine Appearance CLOUDY Urine pH 5.0 Ur Specific [place] 1.017 Urine Protein >=500 H Urine Glucose (UA) >=500 H Urine Ketones 20 H Urine Blood SMALL H Urine Nitrite NEGATIVE Ur Leukocyte Esterase NEGATIVE Urine WBC (Auto) 12 Urine RBC (Auto) 50 11/18/18 11/18/18 11/18/18 17:25 17:25 18:16 WBC RBC Hgb Hct MCV MCH MCHC RDW Plt Count Seg Neutrophils % Lymphocytes % Monocytes % Eosinophils % Basophils % Absolute Neutrophils Absolute Lymphocytes Absolute Monocytes Absolute Eosinophils Absolute Basophils Carbonic Acid Cancelled HCO3/H2CO3 Ratio Cancelled ABG pH Cancelled ABG pCO2 Cancelled ABG pO2 Cancelled ABG HCO3 Cancelled ABG O2 Saturation Cancelled ABG Base Excess Cancelled VBG pH VBG pCO2 VBG HCO3 VBG Base Excess FiO2 Cancelled Sodium 146.1 H Potassium 3.2 L Chloride 109 H Carbon Dioxide 25 Anion Gap 12 BUN 37 H Creatinine 2.83 H Est GFR ( Amer) 20 L Est GFR (Non-Af Amer) 16 L Glucose 289 H Calcium 9.3 Phosphorus Magnesium Total Bilirubin AST ALT Alkaline Phosphatase Ammonia < 8.7 L Total Protein Albumin Amylase Lipase TSH Free T4 Urine Color Urine Appearance Urine pH Ur Specific [place] Urine Protein Urine Glucose (UA) Urine Ketones Urine Blood Urine Nitrite Ur Leukocyte Esterase Urine WBC (Auto) Urine RBC (Auto) 11/18/18 18:49 WBC RBC Hgb Hct MCV MCH MCHC RDW Plt Count Seg Neutrophils % Lymphocytes % Monocytes % Eosinophils % Basophils % Absolute Neutrophils Absolute Lymphocytes Absolute Monocytes Absolute Eosinophils Absolute Basophils Carbonic Acid 1.12 HCO3/H2CO3 Ratio 22:1 ABG pH 7.46 H ABG pCO2 37.2 ABG pO2 74.4 L ABG HCO3 25.6 H ABG O2 Saturation 95.7 ABG Base Excess 2.0 VBG pH VBG pCO2 VBG HCO3 VBG Base Excess FiO2 ROOM AIR Sodium Potassium Chloride Carbon Dioxide Anion Gap BUN Creatinine Est GFR ( Amer) Est GFR (Non-Af Amer) Glucose Calcium Phosphorus Magnesium Total Bilirubin AST ALT Alkaline Phosphatase Ammonia Total Protein Albumin Amylase Lipase TSH Free T4 Urine Color Urine Appearance Urine pH Ur Specific [place] Urine Protein Urine Glucose (UA) Urine Ketones Urine Blood Urine Nitrite Ur Leukocyte Esterase Urine WBC (Auto) Urine RBC (Auto) 11/18/18 11/18/18 11/18/18 08:48 08:48 17:25 Creatine Kinase 57 79 CK-MB (CK-2) 1.16 Troponin I 0.058 11/18/18 17:25 Creatine Kinase CK-MB (CK-2) 2.16 Troponin I 0.119 Impressions: Chest X-Ray 11/18/18 09:53 IMPRESSION: NO ACUTE RADIOGRAPHIC FINDING IN THE CHEST. Head CT 11/18/18 11:19 IMPRESSION: CHRONIC CHANGES OF ATROPHY AND MICROVASCULAR ISCHEMIA. NO ACUTE PROCESS. EVIDENCE OF ACUTE STROKE: NO. Assessment & Plan - Diagnosis (1) Hypertensive emergency Is this a current diagnosis for this admission?: Yes Plan: The systolic blood pressure is in the hypertensive emergency range with symptoms of vomiting ,acute on chronic kidney disease, she has chronic renal disease with superimposed acute kidney injury probably from hemodynamic factors (2) Intractable vomiting with nausea Qualifiers: Vomiting type: cyclical vomiting Qualified Code(s): G43.A1 - Cyclical vomiting, intractable Is this a current diagnosis for this admission?: Yes Plan: She has persistent vomiting, the etiology could be partly from chronic kidney disease, the CAT scan did not demonstrate any acute pathology (3) Acute kidney injury superimposed on chronic kidney disease Is this a current diagnosis for this admission?: Yes (4) Chronic kidney disease, stage III (moderate) Is this a current diagnosis for this admission?: Yes (5) Nephrotic range proteinuria Is this a current diagnosis for this admission?: Yes (6) Physical debility Is this a current diagnosis for this admission?: Yes (7) Secondary hyperparathyroidism (of renal origin) Is this a current diagnosis for this admission?: Yes (8) Sleep apnea syndrome Qualifiers: Sleep apnea type: unspecified type Qualified Code(s): G47.30 - Sleep apnea, unspecified Is this a current diagnosis for this admission?: Yes
[2018-11-18] MEDS: NITROGLYCERIN/D5W 50 MG/250 ML RTUINJ IV PRN (20:45)
[2018-11-18] MEDS: ISOSORBIDE MONONITRATE 30 MG TAB.ER.24H PO SCH (21:06)
[2018-11-18] MEDS: ATORVASTATIN CALCIUM 80 MG TABLET PO SCH (21:21)
[2018-11-18] MEDS: HYDRALAZINE HCL 25 MG TABLET PO SCH (21:21)
[2018-11-18] MEDS: FUROSEMIDE 40 MG TABLET PO SCH (21:21)
[2018-11-18] MEDS: AMLODIPINE BESYLATE 10 MG TABLET PO SCH (21:22)
[2018-11-18] MEDS: METOPROLOL TARTRATE 100 MG TABLET PO SCH ×2 (21:23→21:27)
[2018-11-18 21:40] LABS: AMORPHOUS SEDIMENT,URINE TRACE /HPF; APPEARANCE,URINE SLIGHTLY-CLOUDY; BILIRUBIN,URINE NEGATIVE (NEGATIVE); COLOR,URINE YELLOW; GLUCOSE, URINE >=500 mg/dL (NEGATIVE); KETONES,URINE 20 mg/dL (NEGATIVE); LEUKOCYTE ESTERASE,URINE NEGATIVE (NEGATIVE); NITRITE,URINE NEGATIVE (NEGATIVE); PROTEIN,URINE >=500 mg/dL (NEGATIVE); URINE SPECIFIC GRAVITY 1.018; UROBILINOGEN,URINE NEGATIVE mg/dL (<2.0)
[2018-11-18] MEDS: INSULIN LISPRO 100 UNIT/ML 3 ML VIAL SUBCUT SCH (21:45)
[2018-11-18 21:46] LABS: URINE AMPHETAMINES SCREEN NEGATIVE; URINE BARBITURATES SCREEN NEGATIVE; URINE BENZODIAZEPINES SCREEN NEGATIVE; URINE COCAINE SCREEN NEGATIVE; URINE MARIJUANA (THC) SCREEN NEGATIVE; URINE METHADONE SCREEN NEGATIVE; URINE PHENCYCLIDINE SCREEN NEGATIVE
[2018-11-18 22:30] LABS: ANION GAP 12 (5-19); BLOOD UREA NITROGEN 38 mg/dL (7-20); CARBON DIOXIDE 24 mmol/L (22-30); CHLORIDE 108 mmol/L (98-107); GLUCOSE 332 mg/dL (75-110); POTASSIUM 3.3 mmol/L (3.6-5.0); SODIUM 144.1 mmol/L (137-145)
[2018-11-18 22:41] LABS: TROPONIN I 0.109 ng/mL
[2018-11-18 22:44] LABS: CREATINE KINASE MB 2.37 ng/mL (<4.55)
[2018-11-19] MEDS: HEPARIN SOD (PORCINE) 5,000 UNIT/ML 1 ML SYRINGE SUBCUT SCH ×4 (00:10→21:58)
[2018-11-19 03:04] LABS: ANION GAP 10 (5-19); BLOOD UREA NITROGEN 38 mg/dL (7-20); CALCIUM 9.5 mg/dL (8.4-10.2); CARBON DIOXIDE 26 mmol/L (22-30); CHLORIDE 109 mmol/L (98-107); GLUCOSE 229 mg/dL (75-110); POTASSIUM 3.5 mmol/L (3.6-5.0); SODIUM 144.9 mmol/L (137-145)
--- NOTE | 2018-11-19 04:02 | RADIOLOGY REPORT (SQ) ---
CLINICAL HISTORY: persistent vomiting COMPARISON: None. TECHNIQUE: CT ABDOMEN PELVIS WITHOUT IV CONTRAST on 11/19/2018 12:00 AM [employer] This exam was performed according to our departmental dose-optimization program, which includes automated exposure control, adjustment of the mA and/or kV according to patient size and/or use of iterative reconstruction technique. FINDINGS: Lower lungs are clear. Abdomen: The liver is normal in appearance. There is no biliary dilatation. Gallbladder is normal in size. The pancreas and spleen are normal in appearance. Adrenal glands are normal. Kidneys are mildly atrophic. Abdominal aorta is normal in course and caliber without aneurysm. There is no free air. There is no retroperitoneal adenopathy. Pelvis: There is no bowel obstruction. Urinary bladder contains a Rodriguez catheter and moderate amount of air. Probable right hemicolectomy was performed. There is no free fluid. Skeleton: There are no acute osseous findings. No suspicious bony lesions. IMPRESSION: No acute inflammatory process.
[2018-11-19] MEDS: HYDRALAZINE HCL 25 MG TABLET PO SCH ×3 (06:19→21:56)
[2018-11-19 06:29] LABS: ABSOLUTE BASOPHILS # (AUTO) 0.1 10^3/uL (0.0-0.2); ABSOLUTE LYMPHOCYTES (AUTO) 1.3 10^3/uL (0.5-4.7); ABSOLUTE MONOCYTES (AUTO) 1.4 10^3/uL (0.1-1.4); ABSOLUTE NEUT (AUTO) 15.5 10^3/uL (1.7-8.2); BASOPHILS % (AUTO) 0.5 % (0-2); HEMATOCRIT 33.7 % (36.0-47.0); HEMOGLOBIN 11.1 g/dL (12.0-15.5); LYMPHOCYTES % (AUTO) 7.2 % (13-45); MEAN CORPUSCULAR HEMOGLOBIN 24.5 pg (27.0-33.4); MEAN CORPUSCULAR HGB CONC 32.9 g/dL (32.0-36.0); MEAN CORPUSCULAR VOLUME 74 fl (80-97); MONOCYTES % (AUTO) 7.5 % (3-13); PLATELET COUNT 328 10^3/uL (150-450); RED BLOOD COUNT 4.53 10^6/uL (3.72-5.28); RED CELL DISTRIBUTION WIDTH 16.3 % (11.5-14.0); SEGMENTED NEUTROPHILS % (AUTO) 84.8 % (42-78); TOTAL CELLS COUNTED % (AUTO) 100 %; WHITE BLOOD COUNT 18.3 10^3/uL (4.0-10.5)
[2018-11-19 06:48] LABS: ALANINE AMINOTRANSFERASE 24 U/L (9-52); ALBUMIN 3.4 g/dL (3.5-5.0); ALKALINE PHOSPHATASE 87 U/L (38-126); ANION GAP 8 (5-19); ASPARTATE AMINO TRANSFERASE 24 U/L (14-36); BILIRUBIN,DIRECT 0.2 mg/dL (0.0-0.4); BILIRUBIN,TOTAL 0.3 mg/dL (0.2-1.3); BLOOD UREA NITROGEN 38 mg/dL (7-20); CALCIUM 9.4 mg/dL (8.4-10.2); CARBON DIOXIDE 28 mmol/L (22-30); CHLORIDE 109 mmol/L (98-107); CHOLESTEROL 159.48 mg/dL (0-200); GLUCOSE 231 mg/dL (75-110); POTASSIUM 3.5 mmol/L (3.6-5.0); SODIUM 145.3 mmol/L (137-145); TOTAL PROTEIN 6.3 g/dL (6.3-8.2); TRIGLYCERIDES 80 mg/dL (<150)
[2018-11-19 06:58] LABS: DIRECT LDL 82 mg/dL (<100)
[2018-11-19] MEDS: NITROGLYCERIN/D5W 50 MG/250 ML RTUINJ IV PRN (07:54)
[2018-11-19] MEDS ORDERED: HYDROCHLOROTHIAZIDE 25 MG TABLET PO SCH (10:00)
[2018-11-19] MEDS: INSULIN LISPRO 100 UNIT/ML 3 ML VIAL SUBCUT SCH ×3 (10:05→16:48)
[2018-11-19] MEDS: ISOSORBIDE MONONITRATE 30 MG TAB.ER.24H PO SCH (10:06)
[2018-11-19] MEDS: METOPROLOL TARTRATE 100 MG TABLET PO SCH ×2 (10:06→21:57)
[2018-11-19] MEDS: FUROSEMIDE 40 MG TABLET PO SCH ×2 (10:06→18:38)
[2018-11-19] MEDS: AMLODIPINE BESYLATE 10 MG TABLET PO SCH (10:06)
[2018-11-19] MEDS: VALSARTAN 160 MG TABLET PO SCH (10:06)
[2018-11-19] MEDS: ASPIRIN 81 MG TABLET, ENT COATED PO SCH (10:06)
[2018-11-19 12:21] LABS: ANION GAP 9 (5-19); BLOOD UREA NITROGEN 42 mg/dL (7-20); CALCIUM 9.2 mg/dL (8.4-10.2); CARBON DIOXIDE 26 mmol/L (22-30); CHLORIDE 109 mmol/L (98-107); GLUCOSE 223 mg/dL (75-110); POTASSIUM 3.2 mmol/L (3.6-5.0); SODIUM 144.4 mmol/L (137-145)
[2018-11-19] MEDS: CLONIDINE HCL 0.2 MG TABLET PO SCH ×3 (13:19→21:57)
[2018-11-19] MEDS: SPIRONOLACTONE 25 MG TABLET PO SCH ×2 (13:20→21:56)
--- NOTE | 2018-11-19 18:06 | PDOC CONSULTATION ---
Consultation Consult Date: 11/19/18 Attending physician:: QUINCY ALEJO Consult reason:: I was asked to see the patient due to worsening kidney function and severe uncontrolled hypertension. History of Present Illness Admission Date/PCP: 11/18/18 14:38 QUINCY ALEJO MD History of Present Illness: YG METZ is a 72 year old female with history of chronic kidney disease secondary to diabetic nephropathy associated with nephrotic range proteinuria and hypertensive nephrosclerosis, hypertension, secondary hyperparathyroidism, diabetes mellitus type 2, and coronary artery disease who presented yesterday with 1 day history of nausea, vomiting and some diarrhea. She said she has a little bit of chest discomfort or heaviness but denies any shortness of breath. She said she has a little bit of leg swelling. She denies any headaches, and dizziness. When she presented she has elevated blood pressure of 217/117 which was persistently elevated until the present. She is currently on nitroglycerin drip and all her oral blood pressure medications were initiated. In terms of th e kidney function she came in with a BUN of 42, creatinine of 2.91 with estimated GFR of 19. Today she has a BUN of 38, creatinine of 3.09 and estimated GFR of 18. Last August 16, 2018 she had a BUN of 23, creatinine of 2.3 with estimated GFR of 25. Her baseline creatinine ranged anywhere between 1.8-3 and estimated GFR between 16-35 for the past year. She did have an episode of acute kidney injury last year at around October due to prerenal hemodynamic factors. Past Medical History Cardiac Medical History: Reports: Coronary Artery Disease, Hyperlipidemia, Hypertension-primary - Diagnosis at least about 28 years ago. Endocrine Medical History: Reports: Diabetes Mellitus Type 2 - Since 13 years ago Complications of Diabetes: Reports: Autonomic Neuropathy, Nephropathy, Retinopathy Renal/ Medical History: Reports: Chronic Kidney Disease Stage III, Other - Nephrotic range proteinuria Malignancy Medical History: Reports: Colorectal Cancer - Status post colon resection. Musculoskeltal Medical History: Reports: Arthritis, Other - Chronic back pain due to lumbar stenosis associated with leg pain Psychiatric Medical History: Denies: Depression Past Surgical History Past Surgical History: Reports: Cardiac Catheterization - stents x 2, Tubal Ligation, Other - Colon resection Social History Information Source: Patient Smoking Status: Never Smoker Frequency of Alcohol Use: None Hx Recreational Drug Use: No Drugs: None Hx Prescription Drug Abuse: No Family History Family History: DM - Parents, Other - Atrial fibrillation on her mother Parental Family History Reviewed: Yes Children Family History Reviewed: Unknown Sibling(s) Family History Reviewed.: Unknown Medication/Allergy Home Medications: Aspirin [Aspirin EC] 81 mg PO DAILY 12/13/17 Atorvastatin Calcium [Lipitor 80 mg Tablet] 80 mg PO QHS 12/13/17 Ergocalciferol (Vitamin D2) [Drisdol 50,000 unit (1.25MG) Capsule] 50,000 unit PO ROSEN@1000 12/13/17 Furosemide [Lasix 40 mg Tablet] 40 mg PO BID 12/13/17 Metoprolol Tartrate [Lopressor 100 mg Tablet] 100 mg PO Q12 12/13/17 Valsartan/Hydrochlorothiazide [Diovan Hct 320-25 mg Tablet] 1 tab PO DAILY 12/13/17 Hydralazine HCl [Apresoline 25 mg Tablet] 25 mg PO Q8 #0 tablet 12/21/17 Amlodipine Besylate [Norvasc 10 mg Tablet] 10 mg PO DAILY 11/18/18 Clonidine HCl [Catapres 0.3 mg Tablet] 0.3 mg PO Q8 11/18/18 Isosorbide Mononitrate [Imdur 30 mg Tablet.er] 30 mg PO DAILY 11/18/18 Allergies/Adverse Reactions: codeine [Codeine] Allergy (Mild, Verified 12/12/17 20:07) meperidine HCl [From Demerol] Allergy (Mild, Verified 12/12/17 20:07) morphine Allergy (Verified 12/12/17 20:07) pregabalin [From Lyrica] Allergy (Verified 08/16/18 08:48) Review of Systems All systems: reviewed and no additional remarkable complaints except as stated Review of Systems: Constitutional: ABSENT: chills, fatigue, fever(s), headache(s), weight gain, weight loss Eyes: ABSENT: visual disturbances Ears: ABSENT: hearing changes Cardiovascular: ABSENT: chest pain, dyspnea on exertion, edema, orthropnea, palpitations; admits some chest discomfort or tightness Respiratory: ABSENT: cough, dyspnea, hemoptysis Gastrointestinal: ABSENT: abdominal pain, constipation, hematemesis, hematochezia; admits nausea, vomiting and diarrhea Genitourinary: ABSENT: dysuria, hematuria Musculoskeletal: ABSENT: joint swelling Integumentary: ABSENT: rash, wounds Neurological: ABSENT: abnormal gait, abnormal speech, confusion, dizziness, focal weakness, numbness, syncope Psychiatric: ABSENT: anxiety, depression Endocrine: ABSENT: cold intolerance, heat intolerance, polydipsia, polyuria Hematologic/Lymphatic: ABSENT: easy bleeding, easy bruising, lymphadenopathy Physical Exam Vital Signs: Temp Pulse Resp BP Pulse Ox 98.2 F 66 17 163/69 H 98 11/19/18 16:00 11/19/18 16:00 11/19/18 17:28 11/19/18 17:28 11/19/18 17:28 Intake & Output 11/18/18 11/19/18 11/20/18 06:59 06:59 06:59 Intake Total 2272 627 Output Total 585 290 Balance 1687 337 Weight 84.2 kg Exam: General appearance: No acute distress, cooperative, well-developed, well- nourished Head exam: PRESENT: atraumatic, normocephalic Eye exam: PRESENT: Conjunctiva [place], EOMI, PERRLA. ABSENT: conjunctival injection, scleral icterus Mouth exam: PRESENT: moist, neck supple, tongue midline Neck exam: PRESENT: full ROM. ABSENT: carotid bruit, JVD, lymphadenopathy, thyromegaly Respiratory exam: PRESENT: clear to auscultation bilaterally. ABSENT: rales, rhonchi, stridor, wheezes Cardiovascular exam: PRESENT: RRR, +S1, +S2. ABSENT: systolic murmur Pulses: PRESENT: normal radial pulses, normal dorsalis pedis pulses GI/Abdominal exam: PRESENT: normal bowel sounds, soft. ABSENT: guarding, mass, tenderness Rectal exam: Deferred Extremities exam: PRESENT: full ROM. ABSENT: calf tenderness, pedal edema Musculoskeletal: PRESENT: full ROM. ABSENT: deformity Neurological exam: PRESENT: alert, Awake, Oriented to person, Oriented to place, Oriented to time, reflexes normal, CN II-XII grossly intact. ABSENT: motor sensory deficit Psychiatric exam: PRESENT: appropriate affect, normal mood. ABSENT: homicidal ideation, suicidal ideation Skin exam: PRESENT: intact, dry, warm. ABSENT: rash Results Laboratory Results: 11/19/18 06:12 11/19/18 11:47 11/18/18 11/18/18 11/18/18 08:48 17:25 17:25 WBC RBC Hgb Hct MCV MCH MCHC RDW Plt Count Seg Neutrophils % Lymphocytes % Monocytes % Eosinophils % Basophils % Absolute Neutrophils Absolute Lymphocytes Absolute Monocytes Absolute Eosinophils Absolute Basophils Carbonic Acid HCO3/H2CO3 Ratio ABG pH ABG pCO2 ABG pO2 ABG HCO3 ABG O2 Saturation ABG Base Excess FiO2 Sodium 146.1 H Potassium 3.2 L Chloride 109 H Carbon Dioxide 25 Anion Gap 12 BUN 37 H Creatinine 2.83 H Est GFR ( Amer) 20 L Est GFR (Non-Af Amer) 16 L Glucose 289 H Calcium 9.3 Total Bilirubin AST ALT Alkaline Phosphatase Ammonia < 8.7 L Total Protein Albumin Triglycerides Cholesterol LDL Cholesterol Direct VLDL Cholesterol HDL Cholesterol TSH 2.33 Free T4 1.86 Urine Color Urine Appearance Urine pH Ur Specific [place] Urine Protein Urine Glucose (UA) Urine Ketones Urine Blood Urine Nitrite Ur Leukocyte Esterase Urine WBC (Auto) Urine RBC (Auto) 11/18/18 11/18/18 11/18/18 18:16 18:49 21:10 WBC RBC Hgb Hct MCV MCH MCHC RDW Plt Count Seg Neutrophils % Lymphocytes % Monocytes % Eosinophils % Basophils % Absolute Neutrophils Absolute Lymphocytes Absolute Monocytes Absolute Eosinophils Absolute Basophils Carbonic Acid Cancelled 1.12 HCO3/H2CO3 Ratio Cancelled 22:1 ABG pH Cancelled 7.46 H ABG pCO2 Cancelled 37.2 ABG pO2 Cancelled 74.4 L ABG HCO3 Cancelled 25.6 H ABG O2 Saturation Cancelled 95.7 ABG Base Excess Cancelled 2.0 FiO2 Cancelled ROOM AIR Sodium Potassium Chloride Carbon Dioxide Anion Gap BUN Creatinine Est GFR ( Amer) Est GFR (Non-Af Amer) Glucose Calcium Total Bilirubin AST ALT Alkaline Phosphatase Ammonia Total Protein Albumin Triglycerides Cholesterol LDL Cholesterol Direct VLDL Cholesterol HDL Cholesterol TSH Free T4 Urine Color YELLOW Urine Appearance SLIGHTLY-CLOUDY Urine pH 5.0 Ur Specific [place] 1.018 Urine Protein >=500 H Urine Glucose (UA) >=500 H Urine Ketones 20 H Urine Blood SMALL H Urine Nitrite NEGATIVE Ur Leukocyte Esterase NEGATIVE Urine WBC (Auto) 6 Urine RBC (Auto) 11 11/18/18 11/19/18 11/19/18 22:07 02:32 06:12 WBC 18.3 H RBC 4.53 Hgb 11.1 L Hct 33.7 L MCV 74 L MCH 24.5 L MCHC 32.9 RDW 16.3 H Plt Count 328 Seg Neutrophils % 84.8 H Lymphocytes % 7.2 L Monocytes % 7.5 Eosinophils % 0.0 Basophils % 0.5 Absolute Neutrophils 15.5 H Absolute Lymphocytes 1.3 Absolute Monocytes 1.4 Absolute Eosinophils 0.0 Absolute Basophils 0.1 Carbonic Acid HCO3/H2CO3 Ratio ABG pH ABG pCO2 ABG pO2 ABG HCO3 ABG O2 Saturation ABG Base Excess FiO2 Sodium 144.1 144.9 Potassium 3.3 L 3.5 L Chloride 108 H 109 H Carbon Dioxide 24 26 Anion Gap 12 10 BUN 38 H 38 H Creatinine 2.95 H 2.87 H Est GFR ( Amer) 19 L 20 L Est GFR (Non-Af Amer) 16 L 16 L Glucose 332 H 229 H Calcium 9.0 9.5 Total Bilirubin AST ALT Alkaline Phosphatase Ammonia Total Protein Albumin Triglycerides Cholesterol LDL Cholesterol Direct VLDL Cholesterol HDL Cholesterol TSH Free T4 Urine Color Urine Appearance Urine pH Ur Specific [place] Urine Protein Urine Glucose (UA) Urine Ketones Urine Blood Urine Nitrite Ur Leukocyte Esterase Urine WBC (Auto) Urine RBC (Auto) 11/19/18 11/19/18 06:12 11:47 WBC RBC Hgb Hct MCV MCH MCHC RDW Plt Count Seg Neutrophils % Lymphocytes % Monocytes % Eosinophils % Basophils % Absolute Neutrophils Absolute Lymphocytes Absolute Monocytes Absolute Eosinophils Absolute Basophils Carbonic Acid HCO3/H2CO3 Ratio ABG pH ABG pCO2 ABG pO2 ABG HCO3 ABG O2 Saturation ABG Base Excess FiO2 Sodium 145.3 H 144.4 Potassium 3.5 L 3.2 L Chloride 109 H 109 H Carbon Dioxide 28 26 Anion Gap 8 9 BUN 38 H 42 H Creatinine 3.09 H 3.08 H Est GFR ( Amer) 18 L 18 L Est GFR (Non-Af Amer) 15 L 15 L Glucose 231 H 223 H Calcium 9.4 9.2 Total Bilirubin 0.3 AST 24 ALT 24 Alkaline Phosphatase 87 Ammonia Total Protein 6.3 Albumin 3.4 L Triglycerides 80 Cholesterol 159.48 LDL Cholesterol Direct 82 VLDL Cholesterol 16.0 HDL Cholesterol 56 TSH Free T4 Urine Color Urine Appearance Urine pH Ur Specific [place] Urine Protein Urine Glucose (UA) Urine Ketones Urine Blood Urine Nitrite Ur Leukocyte Esterase Urine WBC (Auto) Urine RBC (Auto) 11/18/18 11/18/18 11/18/18 08:48 08:48 17:25 Creatine Kinase 57 79 CK-MB (CK-2) 1.16 Troponin I 0.058 11/18/18 11/18/18 11/18/18 17:25 22:07 22:07 Creatine Kinase 98 CK-MB (CK-2) 2.16 2.37 Troponin I 0.119 0.109 Impressions: Chest X-Ray 11/18/18 09:53 IMPRESSION: NO ACUTE RADIOGRAPHIC FINDING IN THE CHEST. Head CT 11/18/18 11:19 IMPRESSION: CHRONIC CHANGES OF ATROPHY AND MICROVASCULAR ISCHEMIA. NO ACUTE PROCESS. EVIDENCE OF ACUTE STROKE: NO. Abdomen/Pelvis CT 11/19/18 00:00 IMPRESSION: No acute inflammatory process. Assessment & Plan - Diagnosis (1) Acute kidney injury superimposed on chronic kidney disease Is this a current diagnosis for this admission?: Yes Plan: Secondary to prerenal hemodynamic factors including hypertensive urgency. Pa tient is nonoliguric but recorded urine output is minimal. Monitor kidney function and avoid nephrotoxic medications. Patient does not need any renal replacement therapy. (2) Hypertensive urgency Is this a current diagnosis for this admission?: Yes Plan: Continue current management and possible weaning off nitroglycerin drip at this point. We will try to slowly control the blood pressure using oral medications. Start clonidine 0.3 mg every 8 hours and Spironolactone 25 mg twice a day. Discontinue hydrochlorothiazide. Continue all other blood pressure medications. (3) Nausea and vomiting Is this a current diagnosis for this admission?: Yes Plan: Possibly due to severe uncontrolled hypertension versus GI cause. (4) Chronic kidney disease, stage III (moderate) Is this a current diagnosis for this admission?: Yes Plan: Due to a combination of diabetic nephropathy with nephrotic range proteinuria and hypertensive nephrosclerosis. (5) Type 2 diabetes mellitus Qualifiers: Diabetes mellitus half-way insulin use: without half-way use Diabetes mellitus complication status: with kidney complications Diabetes mellitus complication detail: with nephropathy Qualified Code(s): E11.21 - Type 2 diabetes mellitus with diabetic nephropathy Is this a current diagnosis for this admission?: Yes - Notes Notes: Thank you very much for this consultation. We will follow patient with you. - Time Time Spent: Greater than 70 Minutes
--- NOTE | 2018-11-19 19:03 | PDOC PROGRESS REPORT ---
Subjective Progress Note for:: 11/19/18 Subjective:: Patient was seen in the intensive care unit, she is alert, patient spouse was in the room, I discussed her condition with him and the patient. She is presently of nitro drip, she will be downgraded to medical floor Reason For Visit: HYPERTENSIVE CRISIS Physical Exam Vital Signs: Temp Pulse Resp BP Pulse Ox 98.0 F 71 13 185/82 H 99 11/19/18 18:00 11/19/18 18:00 11/19/18 18:28 11/19/18 18:28 11/19/18 18:28 Intake & Output 11/18/18 11/19/18 11/20/18 06:59 06:59 06:59 Intake Total 2272 627 Output Total 585 365 Balance 1687 262 Weight 84.2 kg General appearance: PRESENT: no acute distress Eye exam: PRESENT: PERRLA Respiratory exam: PRESENT: clear to auscultation jeanette Cardiovascular exam: PRESENT: +S1, +S2 GI/Abdominal exam: PRESENT: soft Neurological exam: PRESENT: alert Results Laboratory Results: 11/19/18 06:12 11/19/18 11:47 11/18/18 11/18/18 11/18/18 18:49 21:10 22:07 WBC RBC Hgb Hct MCV MCH MCHC RDW Plt Count Seg Neutrophils % Lymphocytes % Monocytes % Eosinophils % Basophils % Absolute Neutrophils Absolute Lymphocytes Absolute Monocytes Absolute Eosinophils Absolute Basophils Carbonic Acid 1.12 HCO3/H2CO3 Ratio 22:1 ABG pH 7.46 H ABG pCO2 37.2 ABG pO2 74.4 L ABG HCO3 25.6 H ABG O2 Saturation 95.7 ABG Base Excess 2.0 FiO2 ROOM AIR Sodium 144.1 Potassium 3.3 L Chloride 108 H Carbon Dioxide 24 Anion Gap 12 BUN 38 H Creatinine 2.95 H Est GFR ( Amer) 19 L Est GFR (Non-Af Amer) 16 L Glucose 332 H Calcium 9.0 Total Bilirubin AST ALT Alkaline Phosphatase Total Protein Albumin Triglycerides Cholesterol LDL Cholesterol Direct VLDL Cholesterol HDL Cholesterol Urine Color YELLOW Urine Appearance SLIGHTLY-CLOUDY Urine pH 5.0 Ur Specific [place] 1.018 Urine Protein >=500 H Urine Glucose (UA) >=500 H Urine Ketones 20 H Urine Blood SMALL H Urine Nitrite NEGATIVE Ur Leukocyte Esterase NEGATIVE Urine WBC (Auto) 6 Urine RBC (Auto) 11 0211/19/18 11/19/18 02:32 06:12 06:12 WBC 18.3 H RBC 4.53 Hgb 11.1 L Hct 33.7 L MCV 74 L MCH 24.5 L MCHC 32.9 RDW 16.3 H Plt Count 328 Seg Neutrophils % 84.8 H Lymphocytes % 7.2 L Monocytes % 7.5 Eosinophils % 0.0 Basophils % 0.5 Absolute Neutrophils 15.5 H Absolute Lymphocytes 1.3 Absolute Monocytes 1.4 Absolute Eosinophils 0.0 Absolute Basophils 0.1 Carbonic Acid HCO3/H2CO3 Ratio ABG pH ABG pCO2 ABG pO2 ABG HCO3 ABG O2 Saturation ABG Base Excess FiO2 Sodium 144.9 145.3 H Potassium 3.5 L 3.5 L Chloride 109 H 109 H Carbon Dioxide 26 28 Anion Gap 10 8 BUN 38 H 38 H Creatinine 2.87 H 3.09 H Est GFR ( Amer) 20 L 18 L Est GFR (Non-Af Amer) 16 L 15 L Glucose 229 H 231 H Calcium 9.5 9.4 Total Bilirubin 0.3 AST 24 ALT 24 Alkaline Phosphatase 87 Total Protein 6.3 Albumin 3.4 L Triglycerides 80 Cholesterol 159.48 LDL Cholesterol Direct 82 VLDL Cholesterol 16.0 HDL Cholesterol 56 Urine Color Urine Appearance Urine pH Ur Specific [place] Urine Protein Urine Glucose (UA) Urine Ketones Urine Blood Urine Nitrite Ur Leukocyte Esterase Urine WBC (Auto) Urine RBC (Auto) 11/19/18 11:47 WBC RBC Hgb Hct MCV MCH MCHC RDW Plt Count Seg Neutrophils % Lymphocytes % Monocytes % Eosinophils % Basophils % Absolute Neutrophils Absolute Lymphocytes Absolute Monocytes Absolute Eosinophils Absolute Basophils Carbonic Acid HCO3/H2CO3 Ratio ABG pH ABG pCO2 ABG pO2 ABG HCO3 ABG O2 Saturation ABG Base Excess FiO2 Sodium 144.4 Potassium 3.2 L Chloride 109 H Carbon Dioxide 26 Anion Gap 9 BUN 42 H Creatinine 3.08 H Est GFR ( Amer) 18 L Est GFR (Non-Af Amer) 15 L Glucose 223 H Calcium 9.2 Total Bilirubin AST ALT Alkaline Phosphatase Total Protein Albumin Triglycerides Cholesterol LDL Cholesterol Direct VLDL Cholesterol HDL Cholesterol Urine Color Urine Appearance Urine pH Ur Specific [place] Urine Protein Urine Glucose (UA) Urine Ketones Urine Blood Urine Nitrite Ur Leukocyte Esterase Urine WBC (Auto) Urine RBC (Auto) 11/18/18 11/18/18 11/18/18 08:48 08:48 17:25 Creatine Kinase 57 79 CK-MB (CK-2) 1.16 Troponin I 0.058 11/18/18 11/18/18 11/18/18 17:25 22:07 22:07 Creatine Kinase 98 CK-MB (CK-2) 2.16 2.37 Troponin I 0.119 0.109 Impressions: Chest X-Ray 11/18/18 09:53 IMPRESSION: NO ACUTE RADIOGRAPHIC FINDING IN THE CHEST. Head CT 11/18/18 11:19 IMPRESSION: CHRONIC CHANGES OF ATROPHY AND MICROVASCULAR ISCHEMIA. NO ACUTE PROCESS. EVIDENCE OF ACUTE STROKE: NO. Abdomen/Pelvis CT 11/19/18 00:00 IMPRESSION: No acute inflammatory process. Assessment & Plan - Diagnosis (1) Hypertensive emergency Is this a current diagnosis for this admission?: Yes Plan: Discontinue nitro drip, continue oral anti- hypertensive medications, downgraded to IMCU (2) Intractable vomiting with nausea Qualifiers: Vomiting type: cyclical vomiting Qualified Code(s): G43.A1 - Cyclical vomiting, intractable Is this a current diagnosis for this admission?: Yes (3) Acute kidney injury superimposed on chronic kidney disease Is this a current diagnosis for this admission?: Yes (4) Chronic kidney disease, stage III (moderate) Is this a current diagnosis for this admission?: Yes (5) Nephrotic range proteinuria Is this a current diagnosis for this admission?: Yes (6) Physical debility Is this a current diagnosis for this admission?: Yes (7) Secondary hyperparathyroidism (of renal origin) Is this a current diagnosis for this admission?: Yes (8) Sleep apnea syndrome Qualifiers: Sleep apnea type: unspecified type Qualified Code(s): G47.30 - Sleep apnea, unspecified Is this a current diagnosis for this admission?: Yes
[2018-11-19] MEDS ORDERED: ACETAMINOPHEN 325 MG TABLET PO PRN (21:03)
[2018-11-19] MEDS: ATORVASTATIN CALCIUM 80 MG TABLET PO SCH (21:56)
[2018-11-20] MEDS: INSULIN LISPRO 100 UNIT/ML 3 ML VIAL SUBCUT SCH ×5 (03:59→22:24)
[2018-11-20 04:46] LABS: ALANINE AMINOTRANSFERASE 24 U/L (9-52); ALBUMIN 2.9 g/dL (3.5-5.0); ALKALINE PHOSPHATASE 65 U/L (38-126); ANION GAP 7 (5-19); ASPARTATE AMINO TRANSFERASE 30 U/L (14-36); BILIRUBIN,DIRECT 0.2 mg/dL (0.0-0.4); BILIRUBIN,TOTAL 0.3 mg/dL (0.2-1.3); BLOOD UREA NITROGEN 48 mg/dL (7-20); CALCIUM 8.7 mg/dL (8.4-10.2); CARBON DIOXIDE 28 mmol/L (22-30); CHLORIDE 108 mmol/L (98-107); GLUCOSE 177 mg/dL (75-110); POTASSIUM 3.1 mmol/L (3.6-5.0); SODIUM 142.8 mmol/L (137-145); TOTAL PROTEIN 5.8 g/dL (6.3-8.2)
[2018-11-20 04:53] LABS: ABSOLUTE EOSINOPHILS # (AUTO) 0.1 10^3/uL (0.0-0.6); ABSOLUTE LYMPHOCYTES (AUTO) 2.2 10^3/uL (0.5-4.7); ABSOLUTE NEUT (AUTO) 9.1 10^3/uL (1.7-8.2); BASOPHILS % (AUTO) 0.1 % (0-2); EOSINOPHILS % (AUTO) 0.4 % (0-6); HEMOGLOBIN 10.1 g/dL (12.0-15.5); LYMPHOCYTES % (AUTO) 17.5 % (13-45); MEAN CORPUSCULAR HEMOGLOBIN 24.5 pg (27.0-33.4); MEAN CORPUSCULAR HGB CONC 32.5 g/dL (32.0-36.0); MEAN CORPUSCULAR VOLUME 76 fl (80-97); MONOCYTES % (AUTO) 8.5 % (3-13); PLATELET COUNT 226 10^3/uL (150-450); RED BLOOD COUNT 4.11 10^6/uL (3.72-5.28); RED CELL DISTRIBUTION WIDTH 15.9 % (11.5-14.0); SEGMENTED NEUTROPHILS % (AUTO) 73.5 % (42-78); TOTAL CELLS COUNTED % (AUTO) 100 %; WHITE BLOOD COUNT 12.4 10^3/uL (4.0-10.5)
[2018-11-20 05:32] LABS: PLATELET COMMENT ADEQUATE; PLATELET LARGE PRESENT
[2018-11-20] MEDS: HYDRALAZINE HCL 25 MG TABLET PO SCH ×3 (05:48→22:23)
[2018-11-20] MEDS: CLONIDINE HCL 0.2 MG TABLET PO SCH ×3 (05:49→22:23)
[2018-11-20] MEDS: HEPARIN SOD (PORCINE) 5,000 UNIT/ML 1 ML SYRINGE SUBCUT SCH ×3 (05:49→22:24)
[2018-11-20] MEDS: POTASSI CL 20 MEQ/50 ML RIDER 20 MEQ/50 ML RTUPB IV SCH ×2 (10:16→14:44)
[2018-11-20] MEDS: VALSARTAN 160 MG TABLET PO SCH (10:16)
[2018-11-20] MEDS: ASPIRIN 81 MG TABLET, ENT COATED PO SCH (10:16)
[2018-11-20] MEDS: AMLODIPINE BESYLATE 10 MG TABLET PO SCH (10:17)
[2018-11-20] MEDS: ISOSORBIDE MONONITRATE 30 MG TAB.ER.24H PO SCH (10:17)
[2018-11-20] MEDS: SPIRONOLACTONE 25 MG TABLET PO SCH ×2 (10:17→22:23)
[2018-11-20] MEDS: FUROSEMIDE 40 MG TABLET PO SCH ×2 (10:17→17:12)
--- NOTE | 2018-11-20 10:32 | EKG REPORT ---
SEVERITY:- ABNORMAL ECG - SINUS TACHYCARDIA LEFT BUNDLE BRANCH BLOCK : Confirmed by: Kezia Mensah 20-Nov-2018 10:32:31
--- NOTE | 2018-11-20 12:42 | PDOC PROGRESS REPORT ---
Subjective Progress Note for:: 11/20/18 Subjective:: Patient is doing very well. She is off the nitroglycerin drip since early this morning. She feels better without the nitro drip anyways. Her blood pressure is a slowly improving. She does not have any other new complaints. Reason For Visit: HYPERTENSIVE CRISIS Physical Exam Vital Signs: Temp Pulse Resp BP Pulse Ox 98.3 F 61 16 162/71 H 98 11/20/18 12:00 11/20/18 12:00 11/20/18 12:00 11/20/18 12:00 11/20/18 12:00 Intake & Output 11/19/18 11/20/18 11/21/18 06:59 06:59 06:59 Intake Total 2272 634 1200 Output Total 585 1015 225 Balance 1687 -381 975 Weight 84.2 kg 86.3 kg Exam: General appearance: PRESENT: no acute distress, cooperative, well-developed, well-nourished Head exam: PRESENT: atraumatic, normocephalic Eye exam: PRESENT: conjunctiva pink, PERRLA. ABSENT: scleral icterus Neck exam: ABSENT: JVD Respiratory exam: PRESENT: Normal breath sounds. ABSENT: crackles, rales, rhonchi, unlabored, wheezes Cardiovascular exam: PRESENT: Regular rate rhythm -+S1, +S2. ABSENT: diastolic murmur, systolic murmur GI/Abdominal exam: PRESENT: normal bowel sounds, soft. ABSENT: guarding, mass, tenderness Extremities exam: ABSENT: No edema Neurological exam: PRESENT: alert, awake, oriented to person, place and time. Skin exam: PRESENT: dry, warm, Results Laboratory Results: 11/20/18 04:10 11/20/18 04:10 11/20/18 11/20/18 04:10 04:10 WBC 12.4 H RBC 4.11 Hgb 10.1 L Hct 31.0 L MCV 76 L MCH 24.5 L MCHC 32.5 RDW 15.9 H Plt Count 226 Seg Neutrophils % 73.5 Lymphocytes % 17.5 Monocytes % 8.5 Eosinophils % 0.4 Basophils % 0.1 Absolute Neutrophils 9.1 H Absolute Lymphocytes 2.2 Absolute Monocytes 1.0 Absolute Eosinophils 0.1 Absolute Basophils 0.0 Sodium 142.8 Potassium 3.1 L Chloride 108 H Carbon Dioxide 28 Anion Gap 7 BUN 48 H Creatinine 3.42 H Est GFR ( Amer) 16 L Est GFR (Non-Af Amer) 13 L Glucose 177 H Calcium 8.7 Total Bilirubin 0.3 AST 30 ALT 24 Alkaline Phosphatase 65 Total Protein 5.8 L Albumin 2.9 L 11/18/18 11/18/18 11/18/18 08:48 08:48 17:25 Creatine Kinase 57 79 CK-MB (CK-2) 1.16 Troponin I 0.058 11/18/18 11/18/18 11/18/18 17:25 22:07 22:07 Creatine Kinase 98 CK-MB (CK-2) 2.16 2.37 Troponin I 0.119 0.109 Impressions: Chest X-Ray 11/18/18 09:53 IMPRESSION: NO ACUTE RADIOGRAPHIC FINDING IN THE CHEST. Head CT 11/18/18 11:19 IMPRESSION: CHRONIC CHANGES OF ATROPHY AND MICROVASCULAR ISCHEMIA. NO ACUTE PROCESS. EVIDENCE OF ACUTE STROKE: NO. Abdomen/Pelvis CT 11/19/18 00:00 IMPRESSION: No acute inflammatory process. Assessment & Plan - Diagnosis (1) Acute kidney injury superimposed on chronic kidney disease Is this a current diagnosis for this admission?: Yes Plan: Likely secondary to hemodynamic prerenal factors. Patient is nonoliguric. Kidney function slightly worse today but clinically doing fine. We will continue to monitor kidney function. Avoid nephrotoxic medications. (2) Hypertensive urgency Is this a current diagnosis for this admission?: Yes Plan: Slowly improving currently off nitroglycerin drip. Continue current medications. (3) Nausea and vomiting Is this a current diagnosis for this admission?: Yes Plan: Improved. 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 (5) Type 2 diabetes mellitus Qualifiers: Diabetes mellitus mcfp insulin use: without mcfp use Diabetes mellitus complication status: with kidney complications Diabetes mellitus complication detail: with nephropathy Qualified Code(s): E11.21 - Type 2 diabetes mellitus with diabetic nephropathy Is this a current diagnosis for this admission?: Yes (6) Hypokalemia Is this a current diagnosis for this admission?: Yes Plan: Replace potassium as needed. - Time Time with patient: 15-25 minutes
--- NOTE | 2018-11-20 16:47 | PDOC PROGRESS REPORT ---
Subjective Progress Note for:: 11/20/18 Subjective:: Patient seen by the bedside, patient is downgraded to IMCU Reason For Visit: HYPERTENSIVE CRISIS Physical Exam Vital Signs: Temp Pulse Resp BP Pulse Ox 98.3 F 61 16 162/71 H 98 11/20/18 12:00 11/20/18 12:00 11/20/18 12:00 11/20/18 12:00 11/20/18 12:00 Intake & Output 11/19/18 11/20/18 11/21/18 06:59 06:59 06:59 Intake Total 2272 634 1250 Output Total 585 1015 225 Balance 1687 -381 1025 Weight 84.2 kg 86.3 kg General appearance: PRESENT: no acute distress Eye exam: PRESENT: PERRLA Respiratory exam: PRESENT: clear to auscultation jeanette Cardiovascular exam: PRESENT: +S1, +S2 GI/Abdominal exam: PRESENT: soft Extremities exam: PRESENT: pedal edema Neurological exam: PRESENT: alert Results Laboratory Results: 11/20/18 04:10 11/20/18 04:10 11/20/18 11/20/18 04:10 04:10 WBC 12.4 H RBC 4.11 Hgb 10.1 L Hct 31.0 L MCV 76 L MCH 24.5 L MCHC 32.5 RDW 15.9 H Plt Count 226 Seg Neutrophils % 73.5 Lymphocytes % 17.5 Monocytes % 8.5 Eosinophils % 0.4 Basophils % 0.1 Absolute Neutrophils 9.1 H Absolute Lymphocytes 2.2 Absolute Monocytes 1.0 Absolute Eosinophils 0.1 Absolute Basophils 0.0 Sodium 142.8 Potassium 3.1 L Chloride 108 H Carbon Dioxide 28 Anion Gap 7 BUN 48 H Creatinine 3.42 H Est GFR ( Amer) 16 L Est GFR (Non-Af Amer) 13 L Glucose 177 H Calcium 8.7 Total Bilirubin 0.3 AST 30 ALT 24 Alkaline Phosphatase 65 Total Protein 5.8 L Albumin 2.9 L 11/18/18 11/18/18 11/18/18 08:48 08:48 17:25 Creatine Kinase 57 79 CK-MB (CK-2) 1.16 Troponin I 0.058 11/18/18 11/18/18 11/18/18 17:25 22:07 22:07 Creatine Kinase 98 CK-MB (CK-2) 2.16 2.37 Troponin I 0.119 0.109 Impressions: Chest X-Ray 11/18/18 09:53 IMPRESSION: NO ACUTE RADIOGRAPHIC FINDING IN THE CHEST. Head CT 11/18/18 11:19 IMPRESSION: CHRONIC CHANGES OF ATROPHY AND MICROVASCULAR ISCHEMIA. NO ACUTE PROCESS. EVIDENCE OF ACUTE STROKE: NO. Abdomen/Pelvis CT 11/19/18 00:00 IMPRESSION: No acute inflammatory process. Assessment & Plan - Diagnosis (1) Hypertensive emergency Is this a current diagnosis for this admission?: Yes Plan: continue treatment (2) Intractable vomiting with nausea Qualifiers: Vomiting type: cyclical vomiting Qualified Code(s): G43.A1 - Cyclical vomiting, intractable Is this a current diagnosis for this admission?: Yes (3) Acute kidney injury superimposed on chronic kidney disease Is this a current diagnosis for this admission?: Yes (4) Chronic kidney disease, stage III (moderate) Is this a current diagnosis for this admission?: Yes (5) Nephrotic range proteinuria Is this a current diagnosis for this admission?: Yes (6) Physical debility Is this a current diagnosis for this admission?: Yes (7) Secondary hyperparathyroidism (of renal origin) Is this a current diagnosis for this admission?: Yes (8) Sleep apnea syndrome Qualifiers: Sleep apnea type: unspecified type Qualified Code(s): G47.30 - Sleep apnea, unspecified Is this a current diagnosis for this admission?: Yes
[2018-11-20] MEDS: ATORVASTATIN CALCIUM 80 MG TABLET PO SCH (22:23)
[2018-11-21] MEDS: HYDRALAZINE HCL 25 MG TABLET PO SCH ×3 (05:55→21:47)
[2018-11-21] MEDS: HEPARIN SOD (PORCINE) 5,000 UNIT/ML 1 ML SYRINGE SUBCUT SCH ×3 (05:55→21:47)
[2018-11-21] MEDS: CLONIDINE HCL 0.2 MG TABLET PO SCH ×3 (05:55→21:46)
[2018-11-21 06:38] LABS: ABSOLUTE BASOPHILS # (AUTO) 0.1 10^3/uL (0.0-0.2); ABSOLUTE EOSINOPHILS # (AUTO) 0.2 10^3/uL (0.0-0.6); ABSOLUTE LYMPHOCYTES (AUTO) 2.3 10^3/uL (0.5-4.7); ABSOLUTE MONOCYTES (AUTO) 0.9 10^3/uL (0.1-1.4); ABSOLUTE NEUT (AUTO) 5.8 10^3/uL (1.7-8.2); EOSINOPHILS % (AUTO) 1.6 % (0-6); HEMOGLOBIN 10.4 g/dL (12.0-15.5); LYMPHOCYTES % (AUTO) 24.6 % (13-45); MEAN CORPUSCULAR HEMOGLOBIN 25.4 pg (27.0-33.4); MEAN CORPUSCULAR HGB CONC 33.5 g/dL (32.0-36.0); MEAN CORPUSCULAR VOLUME 76 fl (80-97); MONOCYTES % (AUTO) 10.2 % (3-13); PLATELET COUNT 207 10^3/uL (150-450); SEGMENTED NEUTROPHILS % (AUTO) 62.6 % (42-78); TOTAL CELLS COUNTED % (AUTO) 100 %; WHITE BLOOD COUNT 9.3 10^3/uL (4.0-10.5)
[2018-11-21 06:53] LABS: ALANINE AMINOTRANSFERASE 19 U/L (9-52); ALBUMIN 2.8 g/dL (3.5-5.0); ALKALINE PHOSPHATASE 91 U/L (38-126); ANION GAP 9 (5-19); ASPARTATE AMINO TRANSFERASE 21 U/L (14-36); BILIRUBIN,DIRECT 0.3 mg/dL (0.0-0.4); BILIRUBIN,TOTAL 0.3 mg/dL (0.2-1.3); BLOOD UREA NITROGEN 55 mg/dL (7-20); CALCIUM 8.3 mg/dL (8.4-10.2); CARBON DIOXIDE 26 mmol/L (22-30); CHLORIDE 103 mmol/L (98-107); GLUCOSE 231 mg/dL (75-110); POTASSIUM 3.6 mmol/L (3.6-5.0); SODIUM 137.8 mmol/L (137-145); TOTAL PROTEIN 5.3 g/dL (6.3-8.2)
[2018-11-21] MEDS: INSULIN LISPRO 100 UNIT/ML 3 ML VIAL SUBCUT SCH ×4 (07:58→21:47)
[2018-11-21] MEDS: FUROSEMIDE 40 MG TABLET PO SCH ×2 (09:41→17:03)
[2018-11-21] MEDS: VALSARTAN 160 MG TABLET PO SCH (09:41)
[2018-11-21] MEDS: ISOSORBIDE MONONITRATE 30 MG TAB.ER.24H PO SCH (09:41)
[2018-11-21] MEDS: ASPIRIN 81 MG TABLET, ENT COATED PO SCH (09:42)
[2018-11-21] MEDS: AMLODIPINE BESYLATE 10 MG TABLET PO SCH (09:42)
[2018-11-21] MEDS: SPIRONOLACTONE 25 MG TABLET PO SCH ×2 (09:43→21:47)
--- NOTE | 2018-11-21 12:19 | PDOC PROGRESS REPORT ---
Subjective Progress Note for:: 11/21/18 Subjective:: Patient now downgraded to IMCU. Patient said she just feels a little jittery this morning. Her blood pressure went down as low as 121/55 yesterday afternoon. She is making good amount of urine output with 24-hour urine output of 1675 mL from yesterday. Otherwise she denies any headache, nausea or vomiting. She actually feels good otherwise. Reason For Visit: HYPERTENSIVE CRISIS Physical Exam Vital Signs: Temp Pulse Resp BP Pulse Ox 97.3 F 59 L 16 146/58 H 98 11/21/18 07:29 11/21/18 07:29 11/21/18 07:29 11/21/18 07:29 11/21/18 07:29 Intake & Output 11/20/18 11/21/18 11/22/18 06:59 06:59 06:59 Intake Total 634 2337 Output Total 1015 1675 Balance -381 662 Weight 86.3 kg 86.5 kg Exam: General appearance: PRESENT: no acute distress, cooperative, well-developed, well-nourished Head exam: PRESENT: atraumatic, normocephalic Eye exam: PRESENT: conjunctiva pink, PERRLA. ABSENT: scleral icterus Neck exam: ABSENT: JVD Respiratory exam: PRESENT: Normal breath sounds. ABSENT: crackles, rales, rhonchi, unlabored, wheezes Cardiovascular exam: PRESENT: Regular rate rhythm -+S1, +S2. ABSENT: diastolic murmur, systolic murmur GI/Abdominal exam: PRESENT: normal bowel sounds, soft. ABSENT: guarding, mass, tenderness Extremities exam: ABSENT: No edema Neurological exam: PRESENT: alert, awake, oriented to person, place and time. Skin exam: PRESENT: dry, warm, left arm where she had potassium IV infusion yesterday appears to be reddened and slightly warm. Results Laboratory Results: 11/21/18 06:03 11/21/18 06:03 11/21/18 11/21/18 06:03 06:03 WBC 9.3 RBC 4.10 Hgb 10.4 L Hct 31.0 L MCV 76 L MCH 25.4 L MCHC 33.5 RDW 16.0 H Plt Count 207 Seg Neutrophils % 62.6 Lymphocytes % 24.6 Monocytes % 10.2 Eosinophils % 1.6 Basophils % 1.0 Absolute Neutrophils 5.8 Absolute Lymphocytes 2.3 Absolute Monocytes 0.9 Absolute Eosinophils 0.2 Absolute Basophils 0.1 Sodium 137.8 Potassium 3.6 Chloride 103 Carbon Dioxide 26 Anion Gap 9 BUN 55 H Creatinine 3.85 H Est GFR ( Amer) 14 L Est GFR (Non-Af Amer) 12 L Glucose 231 H Calcium 8.3 L Total Bilirubin 0.3 AST 21 ALT 19 Alkaline Phosphatase 91 Total Protein 5.3 L Albumin 2.8 L 11/18/18 21:10 Catheterized Urine Urine Culture - Final Viridans Streptococcus 11/18/18 11/18/18 11/18/18 08:48 08:48 17:25 Creatine Kinase 57 79 CK-MB (CK-2) 1.16 Troponin I 0.058 11/18/18 11/18/18 11/18/18 17:25 22:07 22:07 Creatine Kinase 98 CK-MB (CK-2) 2.16 2.37 Troponin I 0.119 0.109 Impressions: Chest X-Ray 11/18/18 09:53 IMPRESSION: NO ACUTE RADIOGRAPHIC FINDING IN THE CHEST. Head CT 11/18/18 11:19 IMPRESSION: CHRONIC CHANGES OF ATROPHY AND MICROVASCULAR ISCHEMIA. NO ACUTE PROCESS. EVIDENCE OF ACUTE STROKE: NO. Abdomen/Pelvis CT 11/19/18 00:00 IMPRESSION: No acute inflammatory process. Assessment & Plan - Diagnosis (1) Acute kidney injury superimposed on chronic kidney disease Is this a current diagnosis for this admission?: Yes Plan: Likely secondary to hemodynamic prerenal factors. Patient is nonoliguric. Kidney function slightly worse today but clinically doing fine. We will continue to monitor kidney function. Avoid nephrotoxic medications. (2) Hypertensive urgency Is this a current diagnosis for this admission?: Yes Plan: Slowly improving currently off nitroglycerin drip. Continue current medications. Target goal for blood pressure would be systolic blood pressure between 140-160 and nothing lower. The patient's blood pressure goes down below this then will have to adjust medications. (3) Nausea and vomiting Is this a current diagnosis for this admission?: Yes Plan: Resolved. 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 (5) Type 2 diabetes mellitus Qualifiers: Diabetes mellitus ceo insulin use: without ceo use Diabetes mellitus complication status: with kidney complications Diabetes mellitus complication detail: with nephropathy Qualified Code(s): E11.21 - Type 2 diabetes mellitus with diabetic nephropathy Is this a current diagnosis for this admission?: Yes (6) Hypokalemia Is this a current diagnosis for this admission?: Yes Plan: Resolved. - Time Time with patient: 15-25 minutes
--- NOTE | 2018-11-21 21:27 | PDOC PROGRESS REPORT ---
Subjective Progress Note for:: 11/21/18 Subjective:: Patient seen by the bedside, she says she feels better today, Reason For Visit: HYPERTENSIVE CRISIS Physical Exam Vital Signs: Temp Pulse Resp BP Pulse Ox 98.1 F 67 16 149/62 H 98 11/21/18 19:58 11/21/18 19:58 11/21/18 19:58 11/21/18 19:58 11/21/18 19:58 Intake & Output 11/20/18 11/21/18 11/22/18 06:59 06:59 06:59 Intake Total 634 2337 1489 Output Total 1015 1675 555 Balance -381 662 934 Weight 86.3 kg 86.5 kg General appearance: PRESENT: no acute distress Eye exam: PRESENT: PERRLA Respiratory exam: PRESENT: clear to auscultation jeanette Cardiovascular exam: PRESENT: +S1, +S2 GI/Abdominal exam: PRESENT: soft Neurological exam: PRESENT: alert, CN II-XII grossly intact Results Laboratory Results: 11/21/18 06:03 11/21/18 06:03 11/21/18 11/21/18 06:03 06:03 WBC 9.3 RBC 4.10 Hgb 10.4 L Hct 31.0 L MCV 76 L MCH 25.4 L MCHC 33.5 RDW 16.0 H Plt Count 207 Seg Neutrophils % 62.6 Lymphocytes % 24.6 Monocytes % 10.2 Eosinophils % 1.6 Basophils % 1.0 Absolute Neutrophils 5.8 Absolute Lymphocytes 2.3 Absolute Monocytes 0.9 Absolute Eosinophils 0.2 Absolute Basophils 0.1 Sodium 137.8 Potassium 3.6 Chloride 103 Carbon Dioxide 26 Anion Gap 9 BUN 55 H Creatinine 3.85 H Est GFR ( Amer) 14 L Est GFR (Non-Af Amer) 12 L Glucose 231 H Calcium 8.3 L Total Bilirubin 0.3 AST 21 ALT 19 Alkaline Phosphatase 91 Total Protein 5.3 L Albumin 2.8 L 11/18/18 21:10 Catheterized Urine Urine Culture - Final Viridans Streptococcus 11/18/18 11/18/18 11/18/18 08:48 08:48 17:25 Creatine Kinase 57 79 CK-MB (CK-2) 1.16 Troponin I 0.058 11/18/18 11/18/18 11/18/18 17:25 22:07 22:07 Creatine Kinase 98 CK-MB (CK-2) 2.16 2.37 Troponin I 0.119 0.109 Impressions: Chest X-Ray 11/18/18 09:53 IMPRESSION: NO ACUTE RADIOGRAPHIC FINDING IN THE CHEST. Head CT 11/18/18 11:19 IMPRESSION: CHRONIC CHANGES OF ATROPHY AND MICROVASCULAR ISCHEMIA. NO ACUTE PROCESS. EVIDENCE OF ACUTE STROKE: NO. Abdomen/Pelvis CT 11/19/18 00:00 IMPRESSION: No acute inflammatory process. Assessment & Plan - Diagnosis (1) Hypertensive emergency Is this a current diagnosis for this admission?: Yes Plan: Blood pressure better controlled (2) Intractable vomiting with nausea Qualifiers: Vomiting type: cyclical vomiting Qualified Code(s): G43.A1 - Cyclical vomiting, intractable Is this a current diagnosis for this admission?: Yes Plan: Resolved (3) Acute kidney injury superimposed on chronic kidney disease Is this a current diagnosis for this admission?: Yes Plan: improving (4) Chronic kidney disease, stage III (moderate) Is this a current diagnosis for this admission?: Yes (5) Nephrotic range proteinuria Is this a current diagnosis for this admission?: Yes (6) Physical debility Is this a current diagnosis for this admission?: Yes (7) Secondary hyperparathyroidism (of renal origin) Is this a current diagnosis for this admission?: Yes (8) Sleep apnea syndrome Qualifiers: Sleep apnea type: unspecified type Qualified Code(s): G47.30 - Sleep apnea, unspecified Is this a current diagnosis for this admission?: Yes
[2018-11-21] MEDS: ATORVASTATIN CALCIUM 80 MG TABLET PO SCH (21:47)
[2018-11-22] MEDS: CLONIDINE HCL 0.2 MG TABLET PO SCH ×2 (05:23→13:22)
[2018-11-22] MEDS: HYDRALAZINE HCL 25 MG TABLET PO SCH ×2 (05:23→13:21)
[2018-11-22] MEDS: HEPARIN SOD (PORCINE) 5,000 UNIT/ML 1 ML SYRINGE SUBCUT SCH ×2 (05:24→13:22)
[2018-11-22 06:40] LABS: ANION GAP 12 (5-19); BLOOD UREA NITROGEN 59 mg/dL (7-20); CALCIUM 8.5 mg/dL (8.4-10.2); CARBON DIOXIDE 23 mmol/L (22-30); CHLORIDE 103 mmol/L (98-107); GLUCOSE 171 mg/dL (75-110); POTASSIUM 3.8 mmol/L (3.6-5.0); SODIUM 137.5 mmol/L (137-145)
[2018-11-22] MEDS: INSULIN LISPRO 100 UNIT/ML 3 ML VIAL SUBCUT SCH ×3 (08:00→16:55)
[2018-11-22] MEDS: VALSARTAN 160 MG TABLET PO SCH (09:31)
[2018-11-22] MEDS: FUROSEMIDE 40 MG TABLET PO SCH ×2 (09:31→18:01)
[2018-11-22] MEDS: ISOSORBIDE MONONITRATE 30 MG TAB.ER.24H PO SCH (09:31)
[2018-11-22] MEDS: SPIRONOLACTONE 25 MG TABLET PO SCH (09:31)
[2018-11-22] MEDS: AMLODIPINE BESYLATE 10 MG TABLET PO SCH (09:32)
[2018-11-22] MEDS: ASPIRIN 81 MG TABLET, ENT COATED PO SCH (09:32)
--- NOTE | 2018-11-22 11:30 | PDOC PROGRESS REPORT ---
Subjective Progress Note for:: 11/22/18 Subjective:: Patient continues to do well. Blood pressure is now at goal between 140-160/ 60s. She had good urine output of 1655 mL yesterday. Her kidney function is also improved today. She denies any other complaints. Reason For Visit: HYPERTENSIVE CRISIS Physical Exam Vital Signs: Temp Pulse Resp BP Pulse Ox 98.1 F 70 16 158/69 H 98 11/22/18 07:22 11/22/18 07:22 11/22/18 07:22 11/22/18 07:22 11/22/18 07:22 Intake & Output 11/21/18 11/22/18 11/23/18 06:59 06:59 06:59 Intake Total 2337 1489 Output Total 1675 1655 Balance 662 -166 Weight 86.5 kg 96.4 kg Exam: General appearance: PRESENT: no acute distress, cooperative, well-developed, well-nourished Head exam: PRESENT: atraumatic, normocephalic Eye exam: PRESENT: conjunctiva pink, PERRLA. ABSENT: scleral icterus Neck exam: ABSENT: JVD Respiratory exam: PRESENT: Normal breath sounds. ABSENT: crackles, rales, rhonchi, unlabored, wheezes Cardiovascular exam: PRESENT: Regular rate rhythm -+S1, +S2. ABSENT: diastolic murmur, systolic murmur GI/Abdominal exam: PRESENT: normal bowel sounds, soft. ABSENT: guarding, mass, tenderness Extremities exam: Trace bilateral lower extremity edema Neurological exam: PRESENT: alert, awake, oriented to person, place and time. Skin exam: PRESENT: dry, warm, Results Laboratory Results: 11/21/18 06:03 11/22/18 05:45 11/22/18 05:45 Sodium 137.5 Potassium 3.8 Chloride 103 Carbon Dioxide 23 Anion Gap 12 BUN 59 H Creatinine 3.16 H Est GFR ( Amer) 17 L Est GFR (Non-Af Amer) 14 L Glucose 171 H Calcium 8.5 11/18/18 21:10 Catheterized Urine Urine Culture - Final Viridans Streptococcus 11/18/18 11/18/18 11/18/18 08:48 08:48 17:25 Creatine Kinase 57 79 CK-MB (CK-2) 1.16 Troponin I 0.058 11/18/18 11/18/1819 17:25 22:07 22:07 Creatine Kinase 98 CK-MB (CK-2) 2.16 2.37 Troponin I 0.119 0.109 Impressions: Chest X-Ray 11/18/18 09:53 IMPRESSION: NO ACUTE RADIOGRAPHIC FINDING IN THE CHEST. Head CT 11/18/18 11:19 IMPRESSION: CHRONIC CHANGES OF ATROPHY AND MICROVASCULAR ISCHEMIA. NO ACUTE PROCESS. EVIDENCE OF ACUTE STROKE: NO. Abdomen/Pelvis CT 11/19/18 00:00 IMPRESSION: No acute inflammatory process. Assessment & Plan - Diagnosis (1) Acute kidney injury superimposed on chronic kidney disease Is this a current diagnosis for this admission?: Yes Plan: Likely secondary to hemodynamic prerenal factors. Patient is nonoliguric. Kidney function improved today. (2) Hypertensive urgency Is this a current diagnosis for this admission?: Yes Plan: Slowly improving currently off nitroglycerin drip. Continue current medications. Target goal for blood pressure would be systolic blood pressure between 140-160 and nothing lower. Continue the same blood pressure medications she is getting here upon discharge. New medication for her will be the spironolactone which she needs to go home with. (3) Nausea and vomiting Is this a current diagnosis for this admission?: Yes Plan: Resolved. 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 (5) Type 2 diabetes mellitus Qualifiers: Diabetes mellitus mcfp insulin use: without termite treater helper use Diabetes mellitus complication status: with kidney complications Diabetes mellitus complication detail: with nephropathy Qualified Code(s): E11.21 - Type 2 diabetes mellitus with diabetic nephropathy Is this a current diagnosis for this admission?: Yes (6) Hypokalemia Is this a current diagnosis for this admission?: Yes Plan: Resolved. - Notes Notes: From nephrology point patient can be discharged home. I will be happy to see the patient for follow-up in the office in the next 3 weeks. If possible she needs to have a repeat BMP prior to the appointment. Patient understood. - Time Time with patient: 15-25 minutes
[2018-11-22 20:52] VITALS: BP 140/57
--- NOTE | 2018-11-22 22:26 | PDOC DISCHARGE SUMMARY ---
General - Admit/Disc Date/PCP Admission Date/Primary Care Provider: 11/18/18 14:38 QUINCY ALEJO MD Discharge Date: 11/22/18 - Discharge Diagnosis (1) Hypertensive emergency Is this a current diagnosis for this admission?: Yes (2) Intractable vomiting with nausea Is this a current diagnosis for this admission?: Yes (3) Acute kidney injury superimposed on chronic kidney disease Is this a current diagnosis for this admission?: Yes (4) Chronic kidney disease, stage III (moderate) Is this a current diagnosis for this admission?: Yes (5) Nephrotic range proteinuria Is this a current diagnosis for this admission?: Yes (6) Physical debility Is this a current diagnosis for this admission?: Yes (7) Secondary hyperparathyroidism (of renal origin) Is this a current diagnosis for this admission?: Yes (8) Sleep apnea syndrome Is this a current diagnosis for this admission?: Yes - Additional Information Prescriptions: Hydralazine HCl [Apresoline 25 mg Tablet] 50 mg PO Q8 #90 tablet Home Medications: Aspirin [Aspirin EC] 81 mg PO DAILY 12/13/17 Atorvastatin Calcium [Lipitor 80 mg Tablet] 80 mg PO QHS 12/13/17 Ergocalciferol (Vitamin D2) [Drisdol 50,000 unit (1.25MG) Capsule] 50,000 unit PO ROSEN@1000 12/13/17 Furosemide [Lasix 40 mg Tablet] 40 mg PO BID 12/13/17 Metoprolol Tartrate [Lopressor 100 mg Tablet] 100 mg PO Q12 12/13/17 Valsartan/Hydrochlorothiazide [Diovan Hct 320-25 mg Tablet] 1 tab PO DAILY 12/13/17 Amlodipine Besylate [Norvasc 10 mg Tablet] 10 mg PO DAILY 11/18/18 Clonidine HCl [Catapres 0.3 mg Tablet] 0.3 mg PO Q8 11/18/18 Isosorbide Mononitrate [Imdur 30 mg Tablet.er] 30 mg PO DAILY 11/18/18 Dextrose 50%-Water [Dextrose Inj 50% Syringe (25 gm/50 ml)] 12.5 gm IV PRN PRN disp.syrin 11/22/18 Dextrose 50%-Water [Dextrose Inj 50% Syringe (25 gm/50 ml)] 25 gm IV PRN PRN disp.syrin 11/22/18 Dextrose [Glutose 40% Gel 15 gm Tube] 15 gm PO PRN PRN tube 11/22/18 Dextrose [Glutose 40% Gel 15 gm Tube] 30 gm PO PRN PRN tube 11/22/18 Flu Vacc [id number](6Mos Up)/Pf [Fluarix Adlt Quad Vac 0.5 ml Syr] 0.5 ml IM .DISCHARGE PRN syringe 11/22/18 Hydralazine HCl [Apresoline 25 mg Tablet] 50 mg PO Q8 #90 tablet 11/22/18 History of Present Illness History of Present Illness: YG METZ is a 72 year old female, She has a history of diabetic nephropathy with nephrotic range proteinuria, poorly controlled blood pressure, she came to the emergency room for evaluation of nausea vomiting, the Systolic blood pressure recorded was about 200 consistent with hypertensive emergency,She has a long history of diabetes mellitus with complications including nep hropathy, retinopathy, CKD, poorly controlled diabetes mellitus, spinal stenosis, lack of exercise, sedentary lifestyle. I saw her in the emergency room ,she complains of non specific abdominal symptoms, a CAT scan of the abdomen and pelvis was done without contrast, it demonstrated no acute patho logy. Hospital Course Hospital Course: She was admitted for the management of hypertensive emergency associated with vomiting, she was treated initially with intravenous nitroglycerin in addition to p.o. medication she was seen in consultation by nephrology Dr. Munroe. Her medication was adjusted,she has severe diabetes nephropathy Physical Exam Vital Signs: Temp Pulse Resp BP Pulse Ox 97.5 F 67 20 140/57 H 99 11/22/18 20:00 11/22/18 20:00 11/22/18 20:00 11/22/18 20:00 11/22/18 20:00 Intake & Output 11/21/18 11/22/18 11/23/18 06:59 06:59 06:59 Intake Total 2337 1489 937 Output Total 1266 7962 750 Balance 662 -166 187 Weight 86.5 kg 96.4 kg General appearance: PRESENT: no acute distress, well-developed, well-nourished Head exam: PRESENT: atraumatic, normocephalic Eye exam: PRESENT: conjunctiva pink, EOMI, PERRLA Ear exam: PRESENT: normal external ear exam Mouth exam: PRESENT: moist, tongue midline Neck exam: PRESENT: full ROM Respiratory exam: PRESENT: clear to auscultation jeanette Cardiovascular exam: PRESENT: RRR, +S1, +S2 Pulses: PRESENT: normal dorsalis pedis pul, +2 pedal pulses bilateral Vascular exam: PRESENT: normal capillary refill GI/Abdominal exam: PRESENT: normal bowel sounds, soft Rectal exam: PRESENT: deferred Neurological exam: PRESENT: alert, CN II-XII grossly intact Psychiatric exam: PRESENT: appropriate affect, normal mood Skin exam: PRESENT: dry, intact, warm Results Laboratory Results: 11/21/18 06:03 11/22/18 05:45 11/22/18 05:45 Sodium 137.5 Potassium 3.8 Chloride 103 Carbon Dioxide 23 Anion Gap 12 BUN 59 H Creatinine 3.16 H Est GFR ( Amer) 17 L Est GFR (Non-Af Amer) 14 L Glucose 171 H Calcium 8.5 11/18/18 11/18/18 11/18/18 08:48 08:48 17:25 Creatine Kinase 57 79 CK-MB (CK-2) 1.16 Troponin I 0.058 11/18/18 11/18/18 11/18/18 17:25 22:07 22:07 Creatine Kinase 98 CK-MB (CK-2) 2.16 2.37 Troponin I 0.119 0.109 Impressions: Chest X-Ray 11/18/18 09:53 IMPRESSION: NO ACUTE RADIOGRAPHIC FINDING IN THE CHEST. Head CT 11/18/18 11:19 IMPRESSION: CHRONIC CHANGES OF ATROPHY AND MICROVASCULAR ISCHEMIA. NO ACUTE PROCESS. EVIDENCE OF ACUTE STROKE: NO. Abdomen/Pelvis CT 11/19/18 00:00 IMPRESSION: No acute inflammatory process. Qualifiers - * PATIENT BEING DISCHARGED WITH ANY OF THE FOLLOWING DIAGNOSIS: No
[2018-11-24] MEDS ORDERED: ERGOCALCIFEROL (VITAMIN D2) 50000 UNIT (1.25 MG) CAPSULE PO SCH (10:00)
== END 2018-11-22 21:00 | disposition home or self-care (01) | DRG 305 ==
LOC: ER 09:18 → EH 14:38 → UNDOADMIN 14:38 → ICU 18:22 → 3S 11-20 13:27
PROVIDERS: ADMIT Internal Medicine; ATTEND Internal Medicine
PROC: 3E0234Z Introduction of Serum, Toxoid and Vaccine into Muscle, Percutaneous Approach (ICD-10-PCS; principal; 2018-11-22)
DX: I16.1 Hypertensive emergency (principal); N17.9 Acute kidney failure, unspecified; N25.81 Secondary hyperparathyroidism of renal origin; I12.9 Hypertensive chronic kidney disease with stage 1 through stage 4 chronic kidney disease, or unspecified chronic kidney disease; N18.3 Chronic kidney disease, stage 3 (moderate); E11.21 Type 2 diabetes mellitus with diabetic nephropathy; E11.65 Type 2 diabetes mellitus with hyperglycemia; I25.10 Atherosclerotic heart disease of native coronary artery without angina pectoris; E78.00 Pure hypercholesterolemia, unspecified; E87.6 Hypokalemia; R80.8 Other proteinuria; Z85.038 Personal history of other malignant neoplasm of large intestine; Z90.49 Acquired absence of other specified parts of digestive tract; Z95.5 Presence of coronary angioplasty implant and graft; Z79.82 Long term (current) use of aspirin; Z79.899 Other long term (current) drug therapy; Z23 Encounter for immunization
CPT/HCPCS: 36415; 51702; 70450; 71045; 74176; 80048; 80053; 80061; 80307; 81001; 82140; 82150; 82550; 82553; 82803; 82962; 83036; 83690; 83735; 84100; 84439; 84443; 84484; 85025; 85610; 85730; 87086; 90686; 93005; 93010; 96361; 96365; 96366; 96375; 96376; 99291; J0360; J1644; J1815; J2405; J3480; J3490; J7030

== ENCOUNTER 2019-01-09 07:26 | Inpatient (IN) | payer MEDICARE ==
[2019-01-09] MEDS ORDERED: LABETALOL HCL INJ 20 MG/4 ML DISP.SYRIN IV ONE (08:21)
[2019-01-09] MEDS ORDERED: HYDRALAZINE HCL INJ/PF 20 MG/1 ML SDV IV ONE (08:33)
[2019-01-09] MEDS ORDERED: ONDANSETRON HCL INJ/PF 4 MG/2 ML SDV IV ONE ×2 (08:33→12:30)
[2019-01-09 08:43] LABS: ALANINE AMINOTRANSFERASE 18 U/L (9-52); ALBUMIN 3.9 g/dL (3.5-5.0); ALKALINE PHOSPHATASE 109 U/L (38-126); ANION GAP 18 (5-19); ASPARTATE AMINO TRANSFERASE 21 U/L (14-36); BILIRUBIN,DIRECT 0.4 mg/dL (0.0-0.4); BILIRUBIN,TOTAL 0.5 mg/dL (0.2-1.3); BLOOD UREA NITROGEN 33 mg/dL (7-20); CALCIUM 9.5 mg/dL (8.4-10.2); CARBON DIOXIDE 19 mmol/L (22-30); CHLORIDE 107 mmol/L (98-107); CREATINE KINASE 58 U/L (30-135); GLUCOSE 327 mg/dL (75-110); LIPASE 196.3 U/L (23-300); POTASSIUM 3.5 mmol/L (3.6-5.0); SODIUM 143.8 mmol/L (137-145); TOTAL PROTEIN 7.1 g/dL (6.3-8.2)
[2019-01-09 08:46] LABS: HEMATOCRIT 34.2 % (36.0-47.0); HEMOGLOBIN 11.1 g/dL (12.0-15.5); MEAN CORPUSCULAR HEMOGLOBIN 24.7 pg (27.0-33.4); MEAN CORPUSCULAR HGB CONC 32.6 g/dL (32.0-36.0); MEAN CORPUSCULAR VOLUME 76 fl (80-97); PLATELET COUNT 299 10^3/uL (150-450); RED BLOOD COUNT 4.51 10^6/uL (3.72-5.28); RED CELL DISTRIBUTION WIDTH 15.5 % (11.5-14.0); WHITE BLOOD COUNT 16.2 10^3/uL (4.0-10.5)
[2019-01-09 08:54] LABS: CREATINE KINASE MB 0.72 ng/mL (<4.55); TROPONIN I 0.029 ng/mL
--- NOTE | 2019-01-09 08:56 | RADIOLOGY REPORT (SQ) ---
EXAM DESCRIPTION: CHEST SINGLE VIEW COMPLETED DATE/TIME: 01/09/2019 8:44 am REASON FOR STUDY: epigastric pain, vomiting COMPARISON: AP chest 11/18/2018 EXAM PARAMETERS: NUMBER OF VIEWS: One view. TECHNIQUE: Single frontal radiographic view of the chest acquired. RADIATION DOSE: NA LIMITATIONS: None. FINDINGS: LUNGS AND PLEURA: No opacities, masses or pneumothorax. No pleural effusion. MEDIASTINUM AND HILAR STRUCTURES: No masses. Contour normal. HEART AND VASCULAR STRUCTURES: Heart normal in size. Normal vasculature. BONES: No acute findings. HARDWARE: None in the chest. OTHER: No other significant finding. IMPRESSION: NO ACUTE RADIOGRAPHIC FINDING IN THE CHEST. TECHNICAL DOCUMENTATION: JOB ID: [id number] [employer]- All Rights Reserved Reading location - IP/workstation name: [email or web address]
[2019-01-09] MEDS ORDERED: PROMETHAZINE HCL INJ 25 MG/1 ML VIAL IV ONE (09:04)
[2019-01-09 09:13] LABS: ABSOLUTE LYMPHOCYTES# (MANUAL) 0.5 10^3/uL (0.5-4.7); ABSOLUTE MONOCYTES # (MANUAL) 0.5 10^3/uL (0.1-1.4); ABSOLUTE NEUTROPHILS# (MANUAL) 14.9 10^3/uL (1.7-8.2); BASOPHILS % (MANUAL) 2 % (0-2); EOSINOPHILS % (MANUAL) 0 % (0-6); LYMPHOCYTES % (MANUAL) 3 % (13-45); MONOCYTES % (MANUAL) 3 % (3-13); SEGMENTED NEUTROPHILS % (MAN) 92 % (42-78); TOTAL CELLS COUNTED 100
[2019-01-09 09:14] LABS: ANISOCYTOSIS SLIGHT; HYPOCHROMASIA SLIGHT; OVALOCYTES SLIGHT; PLATELET COMMENT ADEQUATE; POIKILOCYTOSIS SLIGHT
[2019-01-09] MEDS ORDERED: METOCLOPRAMIDE HCL INJ/PF 10 MG/2 ML SDV IV ONE ×2 (09:49→22:45)
[2019-01-09] MEDS ORDERED: DIPHENHYDRAMINE HCL 50 MG/ML VIAL IV ONE (09:49)
[2019-01-09 09:55] LABS: AMORPHOUS SEDIMENT,URINE TRACE /HPF; APPEARANCE,URINE SLIGHTLY-CLOUDY; BILIRUBIN,URINE NEGATIVE (NEGATIVE); COLOR,URINE YELLOW; GLUCOSE, URINE >=500 mg/dL (NEGATIVE); KETONES,URINE 20 mg/dL (NEGATIVE); LEUKOCYTE ESTERASE,URINE NEGATIVE (NEGATIVE); NITRITE,URINE NEGATIVE (NEGATIVE); PROTEIN,URINE >=500 mg/dL (NEGATIVE); URINE SPECIFIC GRAVITY 1.017; UROBILINOGEN,URINE NEGATIVE mg/dL (<2.0)
[2019-01-09] MEDS ORDERED: NORMAL SALINE 1000 ML 1,000 ML IV ONE (09:59)
--- NOTE | 2019-01-09 11:34 | RADIOLOGY REPORT (SQ) ---
EXAM DESCRIPTION: CT HEAD WITHOUT COMPLETED DATE/TIME: 01/09/2019 11:18 am REASON FOR STUDY: persistent vomiting, drowsiness COMPARISON: CT brain 11/18/2018, 08/16/2018, [id number] [facility] exam [place] 06/15/2017 TECHNIQUE: Axial images acquired through the brain without intravenous contrast. Images reviewed wi th bone, brain and subdural windows. Additional sagittal and coronal reconstructions were generated. Images stored on PACS. All CT scanners at this facility use dose modulation, iterative reconstruction, and/or weight based d osing when appropriate to reduce radiation dose to as low as reasonably achievable (ALARA). [facility]: Dose Right [facility]: CareDose [facility]: Dose Right [facility]: Teradose 4D [facility]: CerRx RADIATION DOSE: CT Rad equipment meets quality standard of care and radiation dose reduction techniq ues were employed. CTDIvol: 53.2 mGy. DLP: 1177 mGy-cm. mGy. LIMITATIONS: None. FINDINGS: VENTRICLES: Normal size and contour. CEREBRUM: No masses. No hemorrhage. No midline shift. No evidence for acute infarction. Minimal ag e-appropriate bifrontal small vessel white matter disease CEREBELLUM: No masses. No hemorrhage. No alteration of density. No evidence for acute infarction. EXTRAAXIAL SPACES: No fluid collections. No masses. Diffuse benign dural calcification along the fa lx and inner table of the bifrontal regions. ORBITS AND GLOBE: No intra- or extraconal masses. Post bilateral cataract surgery CALVARIUM: No fracture. PARANASAL SINUSES: No fluid or mucosal thickening. SOFT TISSUES: No mass or hematoma. OTHER: No other significant finding. IMPRESSION: No acute findings. EVIDENCE OF ACUTE STROKE: NO. COMMENT: Quality ID # [id number]: Final reports with documentation of one or more dose reduction techniques (e.g., Automated exposure control, adjustment of the mA and/or kV according to patient size, use of iterative reconstruction technique) TECHNICAL DOCUMENTATION: JOB ID: [id number] [employer]- All Rights Reserved Reading location - IP/workstation name: [email or web address]
[2019-01-09] MEDS ORDERED: METOPROLOL TARTRATE PF/INJ 5 MG/5 ML SDV IV ONE (11:40)
[2019-01-09] MEDS: NICARDIPINE HCL RTU, ISO-OS 20 MG/200 ML RTUINJ IV PRN ×5 (12:21→22:20)
[2019-01-09 13:31] LABS: URINE AMPHETAMINES SCREEN NEGATIVE; URINE BARBITURATES SCREEN NEGATIVE; URINE BENZODIAZEPINES SCREEN NEGATIVE; URINE COCAINE SCREEN NEGATIVE; URINE MARIJUANA (THC) SCREEN NEGATIVE; URINE METHADONE SCREEN NEGATIVE; URINE PHENCYCLIDINE SCREEN NEGATIVE
--- NOTE | 2019-01-09 14:02 | ER Document Report ---
ED General - General Chief Complaint: Nausea/Vomiting/Diarrhea Stated Complaint: WEAKNESS Time Seen by Provider: 01/09/19 07:57 Primary Care Provider: QUINCY ALEJO MD [Primary Care Provider] - Follow up as needed TRAVEL OUTSIDE OF THE [place] IN LAST 30 DAYS: No - HPI Notes: Patient is a 73-year-old female brought into the emergency department for evaluation. She had nausea and vomiting for the last 3 days. No diarrhea. She states she has had epigastric pain intermittently over the last several days.. She is not keeping down any of her medicines. She did not even try to take her regular medications yesterday. Patient's states he has been giving her an one, but she has not been eating much. She certainly not keeping anything down. Emesis has been nonbloody, nonbilious. She is still urinating. No hematuria, dysuria, urinary frequency. - Related Data Allergies/Adverse Reactions: codeine [Codeine] Allergy (Mild, Verified 12/12/17 20:07) meperidine HCl [From Demerol] Allergy (Mild, Verified 12/12/17 20:07) morphine Allergy (Verified 12/12/17 20:07) pregabalin [From Lyrica] Allergy (Verified 08/16/18 08:48) Past Medical History - General Information source: Patient, Relative - Social History Smoking Status: Never Smoker Family History: Reviewed & Not Pertinent, CAD Patient has suicidal ideation: No Patient has homicidal ideation: No - Past Medical History Cardiac Medical History: Reports: Hx Coronary Artery Disease, Hx Hypercholesterolemia, Hx Hypertension Endocrine Medical History: Reports: Hx Diabetes Mellitus Type 1, Hx Diabetes Mellitus Type 2 Renal/ Medical History: Reports: Hx Ovarian Cysts. Denies: Hx Peritoneal Dialysis Malignancy Medical History: Reports: Hx Colorectal Cancer - Status post colon resection. Musculoskeletal Medical History: Reports Hx Arthritis Psychiatric Medical History: Denies: Hx Depression Past Surgical History: Reports: Hx Cardiac Catheterization - stents x 2, Hx Gynecologic Surgery, Hx Tubal Ligation, Other - Colon resection. Denies: Hx Hysterectomy - Immunizations Immunizations up to date: Yes Hx Diphtheria, Pertussis, Tetanus Vaccination: Yes Review of Systems - Review of Systems Constitutional: No symptoms reported EENT: No symptoms reported Cardiovascular: No symptoms reported Respiratory: No symptoms reported Gastrointestinal: See HPI Genitourinary: No symptoms reported Musculoskeletal: No symptoms reported Skin: No symptoms reported Neurological/Psychological: No symptoms reported Physical Exam - Vital signs Vitals: Resp Pulse Ox 20 93 01/09/19 07:39 01/09/19 07:39 - Notes Notes: 73-year-old drowsy appearing female, no acute distress. Vital signs reviewed, please refer to chart. Patient is normocephalic, atraumatic. Pupils equal round, reactive to light. Neck is supple without meningismus. Heart is regular rate and rhythm. Lungs are clear to auscultation bilaterally. Abdomen is soft, mild epigastric tenderness to palpation, normoactive bowel sounds throughout. Extremities without cyanosis, clubbing, edema. Peripheral pulses are equal. Skin is warm and dry. Patient is, neurological exam is nonfocal. Course - Re-evaluation Re-evalutation: 01/09/19 14:11 Patient presents emergency department for evaluation. She had multiple episodes of emesis here, all clear, until the last one which did show a scant amount of coffee-ground. I suspect this is all secondary to the multiple times she vomited. I did go ahead and give her a dose of Protonix IV. She was medicated multiple times, still would not stop vomiting. Serial abdominal exams remain nontender. Patient's heart rate and blood pressure were elevated. I did attempt labetalol, unfortunately it is on nationwide shortage. She was placed on Cardene drip. Medication was titrated to keep systolic blood pressure between 160 and 180. I spoke to Dr. Alejo, he will up with the patient for further care. - Vital Signs Vital signs: Temp Pulse Resp BP Pulse Ox 98.6 F 17 213/86 H 94 01/09/19 07:43 01/09/19 11:01 01/09/19 11:01 01/09/19 11:01 - Laboratory Result Diagrams: 01/09/19 08:03 01/09/19 08:03 Laboratory results interpreted by me: 01/09/19 01/09/19 01/09/19 08:03 08:03 09:11 WBC 16.2 H Hgb 11.1 L Hct 34.2 L MCV 76 L MCH 24.7 L RDW 15.5 H Seg Neuts % (Manual) 92 H Lymphocytes % (Manual) 3 L Abs Neuts (Manual) 14.9 H Abs Basophils (Manual) 0.3 H Potassium 3.5 L Carbon Dioxide 19 L BUN 33 H Creatinine 3.13 H Est GFR ( Amer) 18 L Est GFR (Non-Af Amer) 15 L Glucose 327 H Urine Protein >=500 H Urine Glucose (UA) >=500 H Urine Ketones 20 H - Diagnostic Test Radiology reviewed: Reports reviewed - CT unremarkable, chest x-ray shows nothing acute - EKG Interpretation by Me Additional EKG results interpreted by me: 01/09/19 14:13 EKG reveals sinus tachycardia with a rate of 117 bpm. Left axis deviation, left bundle branch block. No significant change compared to prior study of November 18, 2018. Discharge - Discharge Clinical Impression: Hypertensive crisis, Intractable nausea and vomiting Condition: Stable Disposition: ADMITTED INPATIENT Admitting Provider: Mamie Unit Admitted: ICU Referrals: QUINCY ALEJO MD [Primary Care Provider] - Follow up as needed
[2019-01-09] MEDS ORDERED: PANTOPRAZOLE SODIUM 40 MG VIAL IV ONE (14:10)
--- NOTE | 2019-01-09 15:35 | EKG REPORT ---
SEVERITY:- ABNORMAL ECG - SINUS TACHYCARDIA IVCD, CONSIDER ATYPICAL RBBB LVH WITH IVCD AND SECONDARY REPOL ABNRM : Confirmed by: Jennifer De Jesus MD 09-Jan-2019 15:34:57
[2019-01-09] MEDS ORDERED: 1/2 NORMAL SALINE 1,000 ML IV PRN ×2 (18:25→19:56)
[2019-01-09] MEDS: HEPARIN SOD (PORCINE) 5,000 UNIT/ML 1 ML SYRINGE SUBCUT SCH (18:38)
--- NOTE | 2019-01-09 18:50 | PDOC CONSULTATION ---
Consultation Consult Date: 01/09/19 Attending physician:: QUINCY ALEJO Consult reason:: I was asked to see the patient due to hypertensive urgency and chronic kidney disease. 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 Patient was brought into the emergency room by her family members because of intractable vomiting since last night until today. and granddaughter who are at bedside states that the patient started with some cold symptoms 3 days ago when she started taking some Coricidin HBP but that did not seem to work. Last night she started having persistent intractable nausea vomiting and abdominal pain. There was no note of any diarrhea nor fever. Her oral intake of solids and liquids has been decreased for the last 2 and half days at least. There was no note of any other symptoms including cough, colds no problems with urination. Because the patient is unable to keep anything down she has not taken her blood pressure medications as well. In the emergency room she vomited a few times at times with some coffee- ground material which could be due to repeated forceful vomiting. She was given IV fluid bolus with normal saline and was started on Cardene drip. Her initial blood pressure on presentation was 222/88. Currently on Cardene drip she is running around 156/61-177/64. Admitting kidney function include a BUN of 33, creatinine of 3.13 and estimated GFR of 18. This is actually close to baseline kidney function. Patient is currently lethargic, barely opens her eyes and could not really give any further history. Past Medical History Cardiac Medical History: Reports: Coronary Artery Disease, Hyperlipidemia, Hypertension-primary - Diagnosis at least about 28 years ago. 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 Musculoskeltal Medical History: Reports: Arthritis, Other - Chronic back pain due to lumbar stenosis associated with leg pain Past Surgical History Past Surgical History: Reports: Cardiac Catheterization - stents x 2, Tubal Ligation, Other - Colon resection Social History Information Source: Relative, [facility] Records Smoking Status: Never Smoker Frequency of Alcohol Use: None Hx Recreational Drug Use: No Drugs: None Hx Prescription Drug Abuse: No Family History Family History: DM - Mother and father, Other - Atrial fibrillation new moderate Parental Family History Reviewed: Yes Children Family History Reviewed: Yes Sibling(s) Family History Reviewed.: Yes Medication/Allergy Home Medications: Amlodipine Besylate [Norvasc 10 mg Tablet] 10 mg PO DAILY 01/09/19 Aspirin [Adult Low Dose Aspirin EC] 81 mg PO DAILY 01/09/19 Atorvastatin Calcium [Lipitor 80 mg Tablet] 80 mg PO QHS 01/09/19 Clonidine HCl [Catapres 0.3 mg Tablet] 0.3 mg PO Q8 01/09/19 Ergocalciferol (Vitamin D2) [Drisdol 50,000 unit (1.25MG) Capsule] 50,000 unit PO ROSEN@1000 01/09/19 Furosemide [Lasix 40 mg Tablet] 40 mg PO BID 01/09/19 Hydralazine HCl [Apresoline 25 mg Tablet] 50 mg PO Q8 01/09/19 Isosorbide Mononitrate [Imdur 30 mg Tablet.er] 30 mg PO DAILY 01/09/19 Metoprolol Tartrate [Lopressor 100 mg Tablet] 100 mg PO Q12 01/09/19 Valsartan/Hydrochlorothiazide [Diovan Hct 320-25 mg Tablet] 1 tab PO DAILY 01/09/19 Allergies/Adverse Reactions: codeine [Codeine] Allergy (Mild, Verified 12/12/17 20:07) meperidine HCl [From Demerol] Allergy (Mild, Verified 12/12/17 20:07) morphine Allergy (Verified 12/12/17 20:07) pregabalin [From Lyrica] Allergy (Verified 08/16/18 08:48) Review of Systems ROS unobtainable: Due to mental status Physical Exam Vital Signs: Temp Pulse Resp BP Pulse Ox 100.2 F 111 H 18 156/61 H 94 01/09/19 18:06 01/09/19 18:06 01/09/19 18:06 01/09/19 18:06 01/09/19 18:06 Intake & Output 01/08/19 01/09/19 01/10/19 06:59 06:59 06:59 Intake Total 1400 Balance 1400 Weight 88.1 kg Exam: General appearance: No acute distress, cooperative, somewhat lethargic but arousable and opens her eyes when prompted, well-developed, well-nourished Head exam: PRESENT: atraumatic, normocephalic Eye exam: PRESENT: Conjunctiva pale, EOMI, PERRLA. ABSENT: conjunctival injection, scleral icterus Mouth exam: PRESENT: moist, neck supple, tongue midline Neck exam: PRESENT: full ROM. ABSENT: carotid bruit, JVD, lymphadenopathy, thyromegaly Respiratory exam: PRESENT: clear to auscultation bilaterally. ABSENT: rales, rhonchi, stridor, wheezes Cardiovascular exam: PRESENT: RRR, +S1, +S2. ABSENT: systolic murmur Pulses: PRESENT: normal radial pulses, normal dorsalis pedis pulses GI/Abdominal exam: PRESENT: normal bowel sounds, soft. ABSENT: guarding, mass, tenderness Rectal exam: Deferred Extremities exam: PRESENT: full ROM. ABSENT: calf tenderness, pedal edema Musculoskeletal: PRESENT: full ROM. ABSENT: deformity Neurological exam: PRESENT: alert, Awake, Oriented to person, Oriented to place, Oriented to time, reflexes normal, CN II-XII grossly intact. ABSENT: motor sensory deficit Psychiatric exam: PRESENT: appropriate affect, normal mood. ABSENT: homicidal ideation, suicidal ideation Skin exam: PRESENT: intact, dry, warm. ABSENT: rash Results Laboratory Results: 01/09/19 08:03 01/09/19 08:03 01/09/19 01/09/19 01/09/19 08:03 08:03 09:11 WBC 16.2 H RBC 4.51 Hgb 11.1 L Hct 34.2 L MCV 76 L MCH 24.7 L MCHC 32.6 RDW 15.5 H Plt Count 299 Seg Neutrophils % Not Reportable Lymphocytes % Not Reportable Monocytes % Not Reportable Eosinophils % Not Reportable Basophils % Not Reportable Absolute Neutrophils Not Reportable Absolute Lymphocytes Not Reportable Absolute Monocytes Not Reportable Absolute Eosinophils Not Reportable Absolute Basophils Not Reportable Sodium 143.8 Potassium 3.5 L Chloride 107 Carbon Dioxide 19 L Anion Gap 18 BUN 33 H Creatinine 3.13 H Est GFR ( Amer) 18 L Est GFR (Non-Af Amer) 15 L Glucose 327 H Calcium 9.5 Total Bilirubin 0.5 AST 21 ALT 18 Alkaline Phosphatase 109 Total Protein 7.1 Albumin 3.9 Lipase 196.3 Urine Color YELLOW Urine Appearance SLIGHTLY-CLOUDY Urine pH 6.0 Ur Specific [place] 1.017 Urine Protein >=500 H Urine Glucose (UA) >=500 H Urine Ketones 20 H Urine Blood NEGATIVE Urine Nitrite NEGATIVE Ur Leukocyte Esterase NEGATIVE Urine WBC (Auto) 2 Urine RBC (Auto) 3 01/09/19 01/09/19 08:03 08:03 Creatine Kinase 58 CK-MB (CK-2) 0.72 Troponin I 0.029 Impressions: Chest X-Ray 01/09/19 08:20 IMPRESSION: NO ACUTE RADIOGRAPHIC FINDING IN THE CHEST. Head CT 01/09/19 10:24 IMPRESSION: No acute findings. EVIDENCE OF ACUTE STROKE: NO. Assessment & Plan - Diagnosis (1) Intractable vomiting with nausea Qualifiers: Vomiting type: cyclical vomiting Qualified Code(s): G43.A1 - Cyclical vomiting, intractable Is this a current diagnosis for this admission?: Yes Plan: This is happened multiple times in the past with multiple scenario leading to hospitalization just like this. Patient could have diabetic gastroparesis triggered by some precipitating event in this case some cold symptoms. Patient is currently has Zofran, Phenergan and pantoprazole IV on board. (2) Hypertensive urgency Is this a current diagnosis for this admission?: Yes Plan: Continue Cardene drip until the patient is able to take back her oral medications. I discussed with the nurse her goal blood pressure systolic blood pressure is around 150-160 and nothing lower. If the blood pressure cannot be controlled with just Cardene drip along we can try to add clonidine patch or hydralazine IV. Currently the Cardene drip seems to be controlling the blood pressure well. Once the patient is able to take medications orally when need to resume all her other blood pressure medications slowly. (3) Chronic kidney disease, stage IV (severe) Is this a current diagnosis for this admission?: Yes Plan: Due to diabetic nephropathy and hypertensive nephrosclerosis with no nephrotic range proteinuria. I think is the patient's new baseline kidney function. Patient has been on stage III for a while but for the last few months her kidney function seems to be within this level at stage IV. So we will just continue to monitor her kidney function but he do not need any intervention at this point. (4) Metabolic acidosis Is this a current diagnosis for this admission?: Yes Plan: This is due to her vomiting and underlying chronic kidney disease. I do not think she needs some bicarb drip at this point but that would be an option if this gets worse. (5) Anemia in chronic kidney disease (CKD) Qualifiers: Chronic kidney disease stage: stage 4 (severe) Qualified Code(s): N18.4 - Chronic kidney disease, stage 4 (severe); D63.1 - Anemia in chronic kidney disease Is this a current diagnosis for this admission?: Yes (6) Hypokalemia Is this a current diagnosis for this admission?: Yes Plan: Potassium replacement and IV fluids. (7) Leukocytosis Qualifiers: Leukocytosis type: unspecified Qualified Code(s): D72.829 - Elevated white blood cell count, unspecified Is this a current diagnosis for this admission?: Yes Plan: No evidence of any source of infection at this point. Could just be stress related. 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 Discussed assessment and plan with patient's and granddaughter at bedside. Discussed with Dr. Valerie Johnson. Also discussed plan with her nurse. - Time Time Spent: 50 to 70 Minutes
[2019-01-09] MEDS: POTASSI CL 20 MEQ/1/2NS 1L 20 MEQ/1,000 ML RTUINJ IV PRN (19:42)
[2019-01-09] MEDS ORDERED: DEXTROSE 50%-WATER 25 GM/50 ML DISP.SYRIN IV PRN ×2 (19:57)
[2019-01-09] MEDS ORDERED: GLUCAGON,HUMAN RECOMB 1 MG INJ IM PRN (19:57)
[2019-01-09] MEDS ORDERED: DEXTROSE 40% GEL 15 GM TUBE PO PRN ×2 (19:57)
[2019-01-09] MEDS ORDERED: DEXTROSE 5%-1/4 NORMAL SALINE 1,000 ML IV PRN (19:58)
[2019-01-09] MEDS ORDERED: FAMOTIDINE INJ/PF 20 MG/2 ML SDV IV SCH (20:00)
[2019-01-09] MEDS: FAMOTIDINE INJ/PF 20 MG/2 ML SDV IV SCH (21:07)
[2019-01-09] MEDS: INSULIN LISPRO 100 UNIT/ML 3 ML VIAL SUBCUT SCH ×2 (21:07→23:41)
[2019-01-09] MEDS: ONDANSETRON HCL INJ/PF 4 MG/2 ML SDV IV PRN (21:13)
--- NOTE | 2019-01-09 22:24 | PDOC H&P ---
History of Present Illness Admission Date/PCP: 01/09/19 14:26 QUINCY ALEJO MD History of Present Illness: YG METZ is a 73 year old female Patient with chronic kidney disease stage IV, diabetes nephropathy, diabetic gastroparesis she came to the emergency room for evaluation of persistent vomiting with a background of hypertensive urgency. Patient has presented in this fashion multiple times she was evaluated in the past with upper endoscopies ,CAT scans ultimately she was diagnosed with diabetic gastroparesis.She has multiple underlying comorbid conditions including coronary artery disease Past Medical History Cardiac Medical History: Reports: Coronary Artery Disease, Hyperlipidema, Hypertension Endocrine Medical History: Reports: Diabetes Mellitus Type 2 Malignancy Medical History: Reports: Colorectal Cancer - Status post colon resection. Musculoskeltal Medical History: Reports: Arthritis, Other - Chronic back pain due to lumbar stenosis associated with leg pain Past Surgical History Past Surgical History: Reports: Cardiac Catheterization - stents x 2, Tubal Ligation, Other - Colon resection Social History Smoking Status: Never Smoker Frequency of Alcohol Use: None Hx Recreational Drug Use: No Drugs: None Hx Prescription Drug Abuse: No Family History Family History: Reviewed & Not Pertinent, CAD Parental Family History Reviewed: Yes Children Family History Reviewed: Yes Sibling(s) Family History Reviewed.: Yes Medication/Allergy Home Medications: Amlodipine Besylate [Norvasc 10 mg Tablet] 10 mg PO DAILY 01/09/19 Aspirin [Adult Low Dose Aspirin EC] 81 mg PO DAILY 01/09/19 Atorvastatin Calcium [Lipitor 80 mg Tablet] 80 mg PO QHS 01/09/19 Clonidine HCl [Catapres 0.3 mg Tablet] 0.3 mg PO Q8 01/09/19 Ergocalciferol (Vitamin D2) [Drisdol 50,000 unit (1.25MG) Capsule] 50,000 unit PO ROSEN@1000 01/09/19 Furosemide [Lasix 40 mg Tablet] 40 mg PO BID 01/09/19 Hydralazine HCl [Apresoline 25 mg Tablet] 50 mg PO Q8 01/09/19 Isosorbide Mononitrate [Imdur 30 mg Tablet.er] 30 mg PO DAILY 01/09/19 Metoprolol Tartrate [Lopressor 100 mg Tablet] 100 mg PO Q12 01/09/19 Valsartan/Hydrochlorothiazide [Diovan Hct 320-25 mg Tablet] 1 tab PO DAILY 01/09/19 Allergies/Adverse Reactions: codeine [Codeine] Allergy (Mild, Verified 12/12/17 20:07) meperidine HCl [From Demerol] Allergy (Mild, Verified 12/12/17 20:07) morphine Allergy (Verified 12/12/17 20:07) pregabalin [From Lyrica] Allergy (Verified 08/16/18 08:48) Review of Systems ROS unobtainable: Due to mental status - She is very lethargic Physical Exam Vital Signs: Temp Pulse Resp BP Pulse Ox 98.4 F 110 H 18 156/61 H 94 01/09/19 19:51 01/09/19 20:34 01/09/19 18:06 01/09/19 18:06 01/09/19 18:06 Intake & Output 01/08/19 01/09/19 01/10/19 06:59 06:59 06:59 Intake Total 1605 Balance 1605 Weight 88.1 kg General appearance: PRESENT: other - Patient is lethargic Head exam: PRESENT: atraumatic, normocephalic Eye exam: PRESENT: conjunctiva pink, EOMI, PERRLA Ear exam: PRESENT: normal external ear exam Mouth exam: PRESENT: moist, tongue midline Neck exam: PRESENT: full ROM Cardiovascular exam: PRESENT: RRR, +S1, +S2 Pulses: PRESENT: normal dorsalis pedis pul, +2 pedal pulses bilateral Vascular exam: PRESENT: normal capillary refill GI/Abdominal exam: PRESENT: normal bowel sounds, soft. ABSENT: distended, guarding, mass, organolmegaly, rebound, tenderness Rectal exam: PRESENT: deferred Neurological exam: PRESENT: CN II-XII grossly intact, other - Patient is lethargic but arousable Psychiatric exam: PRESENT: appropriate affect, normal mood Skin exam: PRESENT: dry, intact, warm Results Laboratory Results: 01/09/19 08:03 01/09/19 08:03 01/09/19 01/09/19 01/09/19 08:03 08:03 09:11 WBC 16.2 H RBC 4.51 Hgb 11.1 L Hct 34.2 L MCV 76 L MCH 24.7 L MCHC 32.6 RDW 15.5 H Plt Count 299 Seg Neutrophils % Not Reportable Lymphocytes % Not Reportable Monocytes % Not Reportable Eosinophils % Not Reportable Basophils % Not Reportable Absolute Neutrophils Not Reportable Absolute Lymphocytes Not Reportable Absolute Monocytes Not Reportable Absolute Eosinophils Not Reportable Absolute Basophils Not Reportable Sodium 143.8 Potassium 3.5 L Chloride 107 Carbon Dioxide 19 L Anion Gap 18 BUN 33 H Creatinine 3.13 H Est GFR ( Amer) 18 L Est GFR (Non-Af Amer) 15 L Glucose 327 H Calcium 9.5 Total Bilirubin 0.5 AST 21 ALT 18 Alkaline Phosphatase 109 Total Protein 7.1 Albumin 3.9 Lipase 196.3 Urine Color YELLOW Urine Appearance SLIGHTLY-CLOUDY Urine pH 6.0 Ur Specific [place] 1.017 Urine Protein >=500 H Urine Glucose (UA) >=500 H Urine Ketones 20 H Urine Blood NEGATIVE Urine Nitrite NEGATIVE Ur Leukocyte Esterase NEGATIVE Urine WBC (Auto) 2 Urine RBC (Auto) 3 01/09/19 01/09/19 08:03 08:03 Creatine Kinase 58 CK-MB (CK-2) 0.72 Troponin I 0.029 Impressions: Chest X-Ray 01/09/19 08:20 IMPRESSION: NO ACUTE RADIOGRAPHIC FINDING IN THE CHEST. Head CT 01/09/19 10:24 IMPRESSION: No acute findings. EVIDENCE OF ACUTE STROKE: NO. Assessment & Plan - Diagnosis (1) Hypertensive emergency Is this a current diagnosis for this admission?: Yes Plan: Start Cardene infusion (2) Acute kidney injury superimposed on chronic kidney disease Is this a current diagnosis for this admission?: Yes (3) Chronic kidney disease, stage 4 (severe) Is this a current diagnosis for this admission?: Yes (4) Gastroparesis Is this a current diagnosis for this admission?: Yes Plan: She has persistent vomiting partly from the gastroparesis, she will be kept n.p.o. start 5% dextrose sliding scale
--- NOTE | 2019-01-09 22:29 | OPERATIVE REPORT E ---
Operative Report NAME: YG METZ : 1945 AGE: 73Y DATE OF SURGERY: 01/09/2019 ROOM: 607 PREOPERATIVE DIAGNOSIS: POOR VEINS FOR INTRAVENOUS (IV) ACCESS. POSTOPERATIVE DIAGNOSIS: POOR VEINS FOR INTRAVENOUS (IV) ACCESS. PROCEDURE: Insertion of a triple-lumen catheter the right internal jugular vein under ultrasound guidance. SURGEON: PIERRE DOSS M.D. ANESTHESIA: Local. INDICATION: This 73-year-old female admitted for severe weakness and chronic renal insufficiency with poor peripheral veins for IV access. DESCRIPTION OF PROCEDURE: The patient was placed in a slight Trendelenburg position and the right neck prepped and draped in the usual sterile fashion. With the use of the ultrasound the right internal jugular vein was then identified and local anesthesia infiltrated over the skin. The needle was introduced towards the internal jugular vein under ultrasound guidance. The return flow was dark blood with nonpulsatile. A guidewire was then placed through the needle directed to the superior vena cava. The needle was removed and the puncture site dilated and a triple-lumen catheter inserted through the guidewire to a distance of about 18 cm. The 3 ports then easily aspirated blood and instilled saline easily. The catheter was then anchored to the skin with 3-0 Silk. A Biopatch placed at the insertion site and a transparent sterile dressing placed over the Biopatch and catheter. A chest x-ray will be performed for placement. The patient tolerated the procedure well. DICTATING PHYSICIAN: PIERRE DOSS M.D. [id number] PHY#: [id number] ID: [id number] JOB#: [id number] ACCT: [id number] cc:PIERRE DOSS M.D. >
--- NOTE | 2019-01-09 22:45 | RADIOLOGY REPORT (SQ) ---
EXAM DESCRIPTION: [facility]: XR CHEST 1 VIEW CLINICAL HISTORY: 73 years Female, placement of central line FINDINGS: Since 843, right IJ line has been placed, tip in right atrium. No pneumothorax. Lungs are unchanged. No focal infiltrate. Mediastinum is unchanged. IMPRESSION: Right IJ line tip in the right atrium. No pneumothorax.
[2019-01-09 23:44] LABS: INTERNATIONAL RATION (INR) 1.05; PROTHROMBIN TIME 14.2 SEC (11.4-15.4)
[2019-01-09 23:45] LABS: PARTIAL THROMBOPLASTIN TIME 20.9 SEC (23.5-35.8)
[2019-01-09 23:55] LABS: LIPASE 83.2 U/L (23-300); PHOSPHORUS 3.1 mg/dL (2.5-4.5)
[2019-01-10 00:08] LABS: CREATINE KINASE MB 2.65 ng/mL (<4.55)
[2019-01-10 00:12] LABS: FREE T4 (FREE THYROXINE) 1.71 ng/dL (0.78-2.19)
[2019-01-10] MEDS: NICARDIPINE HCL RTU, ISO-OS 20 MG/200 ML RTUINJ IV PRN ×9 (00:19→21:48)
[2019-01-10 00:23] LABS: TROPONIN I 0.235 ng/mL
[2019-01-10 00:26] LABS: THYROID STIMULATING HORMONE 2.22 uIU/mL (0.47-4.68)
[2019-01-10] MEDS: HEPARIN SOD (PORCINE) 5,000 UNIT/ML 1 ML SYRINGE SUBCUT SCH ×3 (02:48→17:50)
[2019-01-10] MEDS: ONDANSETRON HCL INJ/PF 4 MG/2 ML SDV IV PRN ×3 (02:49→11:38)
[2019-01-10] MEDS: POTASSI CL 20 MEQ/1/2NS 1L 20 MEQ/1,000 ML RTUINJ IV PRN ×2 (05:31→15:33)
[2019-01-10] MEDS: INSULIN LISPRO 100 UNIT/ML 3 ML VIAL SUBCUT SCH ×4 (05:31→23:42)
[2019-01-10 05:39] LABS: ABSOLUTE BASOPHILS # (AUTO) 0.1 10^3/uL (0.0-0.2); ABSOLUTE LYMPHOCYTES (AUTO) 1.2 10^3/uL (0.5-4.7); ABSOLUTE MONOCYTES (AUTO) 1.7 10^3/uL (0.1-1.4); ABSOLUTE NEUT (AUTO) 16.3 10^3/uL (1.7-8.2); BASOPHILS % (AUTO) 0.4 % (0-2); HEMATOCRIT 29.2 % (36.0-47.0); HEMOGLOBIN 9.7 g/dL (12.0-15.5); LYMPHOCYTES % (AUTO) 6.4 % (13-45); MEAN CORPUSCULAR HEMOGLOBIN 24.8 pg (27.0-33.4); MEAN CORPUSCULAR HGB CONC 33.1 g/dL (32.0-36.0); MEAN CORPUSCULAR VOLUME 75 fl (80-97); MONOCYTES % (AUTO) 8.7 % (3-13); PLATELET COUNT 287 10^3/uL (150-450); RED CELL DISTRIBUTION WIDTH 15.6 % (11.5-14.0); SEGMENTED NEUTROPHILS % (AUTO) 84.5 % (42-78); TOTAL CELLS COUNTED % (AUTO) 100 %; WHITE BLOOD COUNT 19.3 10^3/uL (4.0-10.5)
[2019-01-10 05:59] LABS: ALANINE AMINOTRANSFERASE 24 U/L (9-52); ALBUMIN 3.3 g/dL (3.5-5.0); ALKALINE PHOSPHATASE 87 U/L (38-126); ANION GAP 12 (5-19); ASPARTATE AMINO TRANSFERASE 20 U/L (14-36); BILIRUBIN,DIRECT 0.3 mg/dL (0.0-0.4); BILIRUBIN,TOTAL 0.4 mg/dL (0.2-1.3); BLOOD UREA NITROGEN 39 mg/dL (7-20); CALCIUM 8.5 mg/dL (8.4-10.2); CARBON DIOXIDE 21 mmol/L (22-30); CHLORIDE 105 mmol/L (98-107); CREATINE KINASE 84 U/L (30-135); GLUCOSE 292 mg/dL (75-110); POTASSIUM 3.3 mmol/L (3.6-5.0); SODIUM 137.5 mmol/L (137-145); TOTAL PROTEIN 6.3 g/dL (6.3-8.2); TRIGLYCERIDES 103 mg/dL (<150)
[2019-01-10] MEDS ORDERED: METOCLOPRAMIDE HCL INJ/PF 10 MG/2 ML SDV IV PRN (06:00)
[2019-01-10 06:08] LABS: CREATINE KINASE MB 2.41 ng/mL (<4.55); TROPONIN I 0.252 ng/mL
[2019-01-10 06:10] LABS: DIRECT LDL 56 mg/dL (<100)
--- NOTE | 2019-01-10 08:35 | PDOC PROGRESS REPORT ---
Subjective Progress Note for:: 01/10/19 Subjective:: Patient seen by the bedside, she is more alert today and responsive no more vomiting still has nausea Reason For Visit: HYPERTENSIVE URGENCY/EMERGENCY,ACUTE ON CHRONIC Physical Exam Vital Signs: Temp Pulse Resp BP Pulse Ox 98.8 F 97 17 182/77 H 99 01/10/19 08:12 01/10/19 08:00 01/10/19 08:12 01/10/19 08:12 01/10/19 08:12 Intake & Output 01/09/19 01/10/19 01/11/19 06:59 06:59 06:59 Intake Total 3373 180 Output Total 1000 30 Balance 2373 150 Weight 88.1 kg General appearance: PRESENT: no acute distress Eye exam: PRESENT: PERRLA Respiratory exam: PRESENT: clear to auscultation jeanette Cardiovascular exam: PRESENT: +S1, +S2 GI/Abdominal exam: PRESENT: soft Neurological exam: PRESENT: alert, CN II-XII grossly intact Results Laboratory Results: 01/10/19 05:30 01/10/19 05:30 01/09/19 01/09/19 01/09/19 08:03 08:03 09:11 WBC 16.2 H RBC 4.51 Hgb 11.1 L Hct 34.2 L MCV 76 L MCH 24.7 L MCHC 32.6 RDW 15.5 H Plt Count 299 Seg Neutrophils % Not Reportable Lymphocytes % Not Reportable Monocytes % Not Reportable Eosinophils % Not Reportable Basophils % Not Reportable Absolute Neutrophils Not Reportable Absolute Lymphocytes Not Reportable Absolute Monocytes Not Reportable Absolute Eosinophils Not Reportable Absolute Basophils Not Reportable Sodium 143.8 Potassium 3.5 L Chloride 107 Carbon Dioxide 19 L Anion Gap 18 BUN 33 H Creatinine 3.13 H Est GFR ( Amer) 18 L Est GFR (Non-Af Amer) 15 L Glucose 327 H Calcium 9.5 Phosphorus Magnesium Total Bilirubin 0.5 AST 21 ALT 18 Alkaline Phosphatase 109 Ammonia Total Protein 7.1 Albumin 3.9 Triglycerides Cholesterol LDL Cholesterol Direct VLDL Cholesterol HDL Cholesterol Amylase Lipase 196.3 TSH Free T4 Urine Color YELLOW Urine Appearance SLIGHTLY-CLOUDY Urine pH 6.0 Ur Specific [place] 1.017 Urine Protein >=500 H Urine Glucose (UA) >=500 H Urine Ketones 20 H Urine Blood NEGATIVE Urine Nitrite NEGATIVE Ur Leukocyte Esterase NEGATIVE Urine WBC (Auto) 2 Urine RBC (Auto) 3 01/09/19 01/09/19 01/09/19 23:20 23:20 23:20 WBC RBC Hgb Hct MCV MCH MCHC RDW Plt Count Seg Neutrophils % Lymphocytes % Monocytes % Eosinophils % Basophils % Absolute Neutrophils Absolute Lymphocytes Absolute Monocytes Absolute Eosinophils Absolute Basophils Sodium Potassium Chloride Carbon Dioxide Anion Gap BUN Creatinine Est GFR ( Amer) Est GFR (Non-Af Amer) Glucose Calcium Phosphorus 3.1 Magnesium 1.7 Total Bilirubin AST ALT Alkaline Phosphatase Ammonia < 8.7 L Total Protein Albumin Triglycerides Cholesterol LDL Cholesterol Direct VLDL Cholesterol HDL Cholesterol Amylase 107 Lipase 83.2 TSH 2.22 Free T4 1.71 Urine Color Urine Appearance Urine pH Ur Specific [place] Urine Protein Urine Glucose (UA) Urine Ketones Urine Blood Urine Nitrite Ur Leukocyte Esterase Urine WBC (Auto) Urine RBC (Auto) 01/10/19 01/10/19 05:30 05:30 WBC 19.3 H RBC 3.90 Hgb 9.7 L Hct 29.2 L MCV 75 L MCH 24.8 L MCHC 33.1 RDW 15.6 H Plt Count 287 Seg Neutrophils % 84.5 H Lymphocytes % 6.4 L Monocytes % 8.7 Eosinophils % 0.0 Basophils % 0.4 Absolute Neutrophils 16.3 H Absolute Lymphocytes 1.2 Absolute Monocytes 1.7 H Absolute Eosinophils 0.0 Absolute Basophils 0.1 Sodium 137.5 Potassium 3.3 L Chloride 105 Carbon Dioxide 21 L Anion Gap 12 BUN 39 H Creatinine 4.19 H Est GFR ( Amer) 13 L Est GFR (Non-Af Amer) 10 L Glucose 292 H Calcium 8.5 Phosphorus Magnesium Total Bilirubin 0.4 AST 20 ALT 24 Alkaline Phosphatase 87 Ammonia Total Protein 6.3 Albumin 3.3 L Triglycerides 103 Cholesterol 120.90 LDL Cholesterol Direct 56 VLDL Cholesterol 21.0 HDL Cholesterol 51 Amylase Lipase TSH Free T4 Urine Color Urine Appearance Urine pH Ur Specific [place] Urine Protein Urine Glucose (UA) Urine Ketones Urine Blood Urine Nitrite Ur Leukocyte Esterase Urine WBC (Auto) Urine RBC (Auto) 01/09/19 01/09/19 01/09/19 08:03 08:03 23:20 Creatine Kinase 58 74 CK-MB (CK-2) 0.72 Troponin I 0.029 01/09/19 01/10/19 01/10/19 23:20 05:30 05:30 Creatine Kinase 84 CK-MB (CK-2) 2.65 2.41 Troponin I 0.235 0.252 Impressions: Chest X-Ray 01/09/19 08:20 IMPRESSION: NO ACUTE RADIOGRAPHIC FINDING IN THE CHEST. Head CT 01/09/19 10:24 IMPRESSION: No acute findings. EVIDENCE OF ACUTE STROKE: NO. Assessment & Plan - Diagnosis (1) Hypertensive emergency Is this a current diagnosis for this admission?: Yes Plan: continue Cardene infusion (2) Acute kidney injury superimposed on chronic kidney disease Is this a current diagnosis for this admission?: Yes (3) Chronic kidney disease, stage 4 (severe) Is this a current diagnosis for this admission?: Yes (4) Gastroparesis Is this a current diagnosis for this admission?: Yes
--- NOTE | 2019-01-10 13:00 | PDOC PROGRESS REPORT ---
Subjective Progress Note for:: 01/10/19 Reason For Visit: Patient seen in the ICU today. She is awake alert and responsive. Her and granddaughter is at the bedside. Patient does not have any abdominal pains like she had when she came in. She still nauseous. No complaints of any chest pain or shortness of breath or fever or chills. She is nonoliguric. She is on IV Cardene drip along with clonidine patch. Blood pressures are better but still high. She and her granddaughter is requesting that she do not get any more IV Reglan because they are concerned about the side effects in kidney failure patients. Discussions were done with the treating nurse in the ICU. Labs and medications were reviewed. Physical Exam Vital Signs: Temp Pulse Resp BP Pulse Ox 99.5 F 101 H 15 173/70 H 97 01/10/19 10:12 01/10/19 10:00 01/10/19 10:12 01/10/19 10:12 01/10/19 10:12 Intake & Output 01/09/19 01/10/19 01/11/19 06:59 06:59 06:59 Intake Total 3373 380 Output Total 1000 55 Balance 2373 325 Weight 88.1 kg General appearance: PRESENT: no acute distress Respiratory exam: PRESENT: clear to auscultation jeanette. ABSENT: crackles GI/Abdominal exam: PRESENT: normal bowel sounds, soft. ABSENT: organomegaly, tenderness Extremities exam: ABSENT: pedal edema Neurological exam: PRESENT: alert, awake, oriented to person, oriented to place Psychiatric exam: PRESENT: anxious Skin exam: ABSENT: cyanosis, erythema, mottled, rash Results Laboratory Results: 01/10/19 05:30 01/10/19 05:30 01/09/19 01/09/19 01/09/19 23:20 23:20 23:20 WBC RBC Hgb Hct MCV MCH MCHC RDW Plt Count Seg Neutrophils % Lymphocytes % Monocytes % Eosinophils % Basophils % Absolute Neutrophils Absolute Lymphocytes Absolute Monocytes Absolute Eosinophils Absolute Basophils Sodium Potassium Chloride Carbon Dioxide Anion Gap BUN Creatinine Est GFR ( Amer) Est GFR (Non-Af Amer) Glucose Calcium Phosphorus 3.1 Magnesium 1.7 Total Bilirubin AST ALT Alkaline Phosphatase Ammonia < 8.7 L Total Protein Albumin Triglycerides Cholesterol LDL Cholesterol Direct VLDL Cholesterol HDL Cholesterol Amylase 107 Lipase 83.2 TSH 2.22 Free T4 1.71 01/10/19 01/10/19 05:30 05:30 WBC 19.3 H RBC 3.90 Hgb 9.7 L Hct 29.2 L MCV 75 L MCH 24.8 L MCHC 33.1 RDW 15.6 H Plt Count 287 Seg Neutrophils % 84.5 H Lymphocytes % 6.4 L Monocytes % 8.7 Eosinophils % 0.0 Basophils % 0.4 Absolute Neutrophils 16.3 H Absolute Lymphocytes 1.2 Absolute Monocytes 1.7 H Absolute Eosinophils 0.0 Absolute Basophils 0.1 Sodium 137.5 Potassium 3.3 L Chloride 105 Carbon Dioxide 21 L Anion Gap 12 BUN 39 H Creatinine 4.19 H Est GFR ( Amer) 13 L Est GFR (Non-Af Amer) 10 L Glucose 292 H Calcium 8.5 Phosphorus Magnesium Total Bilirubin 0.4 AST 20 ALT 24 Alkaline Phosphatase 87 Ammonia Total Protein 6.3 Albumin 3.3 L Triglycerides 103 Cholesterol 120.90 LDL Cholesterol Direct 56 VLDL Cholesterol 21.0 HDL Cholesterol 51 Amylase Lipase TSH Free T4 01/09/19 01/09/19 01/09/19 08:03 08:03 23:20 Creatine Kinase 58 74 CK-MB (CK-2) 0.72 Troponin I 0.029 01/09/19 01/10/19 01/10/19 23:20 05:30 05:30 Creatine Kinase 84 CK-MB (CK-2) 2.65 2.41 Troponin I 0.235 0.252 Impressions: Chest X-Ray 01/09/19 08:20 IMPRESSION: NO ACUTE RADIOGRAPHIC FINDING IN THE CHEST. Head CT 01/09/19 10:24 IMPRESSION: No acute findings. EVIDENCE OF ACUTE STROKE: NO. Assessment & Plan - Diagnosis (1) Acute kidney injury superimposed on chronic kidney disease Is this a current diagnosis for this admission?: Yes Plan: Currently nonoliguric. Patient's baseline creatinine is around 3. She came in with a creatinine of 3.1 and yesterday and today is 4.1. Obviously her hyperten sive urgency has a big factor in her acute insult. Presently doing better. Her nausea vomiting from gastroparesis is improving. She obviously has had multiple admissions for similar issues in the past. Poor intake the days preceding her admission. She is on gentle hydration which I would continue. No indications for acute renal replacement therapies at the moment. Discussions were done with the and granddaughter at the bedside. They are concerned about IV Reglan which is only on a low-dose of 5 mg every 8 hours which they wanted to discontinue because patient was having intermittent tremors. Tried to allay their fears about the adjusted dose of Reglan but they are persistent that they would not like to have it being given to the patient. (2) Chronic kidney disease, stage 4 (severe) Is this a current diagnosis for this admission?: Yes Plan: From diabetic nephropathy. Discussed the need for tight blood sugar control (3) Gastroparesis Is this a current diagnosis for this admission?: Yes Plan: Chronic and recurrent. Currently in acute crisis from that. Patient does not want to be on low-dose of prokinetic agents like Reglan unfortunately. Tried to make understand that long-term side effects of Parkinson's syndrome is what they need to be concerned if she was on on the regular dose for a prolonged period of time. Tried to make her understand that the present dose in her acute crisis would be beneficial but she wanted to be stopped. (4) Hypertensive emergency Is this a current diagnosis for this admission?: Yes Plan: Some better continuing to titrate Cardene drip. (5) Intractable vomiting with nausea Qualifiers: Vomiting type: cyclical vomiting Qualified Code(s): G43.A1 - Cyclical vomiting, intractable Is this a current diagnosis for this admission?: Yes Plan: Better. However still still has residual symptoms. (6) Metabolic acidosis Is this a current diagnosis for this admission?: Yes Plan: Improving. (7) Hypokalemia Is this a current diagnosis for this admission?: Yes Plan: On replacements. Monitor twelve hourly til stable and eating. 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 Diabetes mellitus complication status: with kidney complications Diabetes mellitus complication detail: with chronic kidney disease Chronic kidney disease stage: stage 3 (moderate) Qualified Code(s): E11.22 - Type 2 diabetes mellitus with diabetic chronic kidney disease; N18.3 - Chronic kidney disease, stage 3 (moderate); N18.3 - Chronic kidney disease, stage 3 (moderate); Z79.4 - shelter (current) use of insulin; Z79.4 - shelter (current) use of insulin; Z79.4 - shelter (current) use of insulin; Z79.4 - intermediate accountant (current) use of insulin Plan: Advised the need for tight diabetic control to prevent further complications down the road.
[2019-01-10] MEDS: FAMOTIDINE INJ/PF 20 MG/2 ML SDV IV SCH (21:48)
[2019-01-11] MEDS: NICARDIPINE HCL RTU, ISO-OS 20 MG/200 ML RTUINJ IV PRN ×6 (00:34→21:33)
[2019-01-11 02:05] LABS: ARTERIAL BLOOD BASE EXCESS -6.1 mmol/L; ARTERIAL BLOOD H2CO3 0.91 mmol/L (1.05-1.35); ARTERIAL BLOOD HCO3 17.8 mmol/L (20-24); ARTERIAL BLOOD O2 SATURATION 95.9 % (94-98); ARTERIAL BLOOD PCO2 30.3 mmHg (35-45); ARTERIAL BLOOD PH 7.39 (7.35-7.45); ARTERIAL BLOOD PO2 80.4 mmHg (80-100); ARTERIAL BLOOD TOTAL CO2 18.8 mmol/L (21-25)
[2019-01-11 02:08] LABS: ARTERIAL BLOOD FIO2 ROOM AIR
[2019-01-11] MEDS: HEPARIN SOD (PORCINE) 5,000 UNIT/ML 1 ML SYRINGE SUBCUT SCH ×3 (02:11→19:24)
[2019-01-11] MEDS: POTASSI CL 20 MEQ/1/2NS 1L 20 MEQ/1,000 ML RTUINJ IV PRN ×3 (02:13→21:36)
[2019-01-11 02:43] LABS: ANION GAP 10 (5-19); BLOOD UREA NITROGEN 37 mg/dL (7-20); CALCIUM 8.2 mg/dL (8.4-10.2); CARBON DIOXIDE 18 mmol/L (22-30); CHLORIDE 105 mmol/L (98-107); GLUCOSE 195 mg/dL (75-110); POTASSIUM 3.6 mmol/L (3.6-5.0)
[2019-01-11] MEDS: MAGNESIUM SULFATE 1 GM/D5W 100 ML IV SCH ×2 (03:08→04:13)
[2019-01-11 04:01] LABS: ABSOLUTE BASOPHILS # (AUTO) 0.1 10^3/uL (0.0-0.2); ABSOLUTE LYMPHOCYTES (AUTO) 1.8 10^3/uL (0.5-4.7); ABSOLUTE MONOCYTES (AUTO) 1.9 10^3/uL (0.1-1.4); BASOPHILS % (AUTO) 0.6 % (0-2); EOSINOPHILS % (AUTO) 0.2 % (0-6); HEMATOCRIT 27.7 % (36.0-47.0); HEMOGLOBIN 9.2 g/dL (12.0-15.5); LYMPHOCYTES % (AUTO) 10.7 % (13-45); MEAN CORPUSCULAR HEMOGLOBIN 24.9 pg (27.0-33.4); MEAN CORPUSCULAR HGB CONC 33.2 g/dL (32.0-36.0); MEAN CORPUSCULAR VOLUME 75 fl (80-97); MONOCYTES % (AUTO) 11.4 % (3-13); PLATELET COUNT 261 10^3/uL (150-450); RED BLOOD COUNT 3.69 10^6/uL (3.72-5.28); RED CELL DISTRIBUTION WIDTH 15.8 % (11.5-14.0); SEGMENTED NEUTROPHILS % (AUTO) 77.1 % (42-78); TOTAL CELLS COUNTED % (AUTO) 100 %; WHITE BLOOD COUNT 16.9 10^3/uL (4.0-10.5)
[2019-01-11 04:18] LABS: ALANINE AMINOTRANSFERASE 26 U/L (9-52); ALBUMIN 3.1 g/dL (3.5-5.0); ALKALINE PHOSPHATASE 83 U/L (38-126); ANION GAP 11 (5-19); ASPARTATE AMINO TRANSFERASE 24 U/L (14-36); BILIRUBIN,DIRECT 0.3 mg/dL (0.0-0.4); BILIRUBIN,TOTAL 0.4 mg/dL (0.2-1.3); BLOOD UREA NITROGEN 37 mg/dL (7-20); CALCIUM 8.1 mg/dL (8.4-10.2); CARBON DIOXIDE 20 mmol/L (22-30); CHLORIDE 102 mmol/L (98-107); GLUCOSE 219 mg/dL (75-110); POTASSIUM 3.6 mmol/L (3.6-5.0); SODIUM 132.6 mmol/L (137-145)
[2019-01-11] MEDS: INSULIN LISPRO 100 UNIT/ML 3 ML VIAL SUBCUT SCH ×3 (05:42→19:24)
[2019-01-11] MEDS ORDERED: (PENDING PHARMACY ID) (Valsartan/Hydrochlorothiazide [Diovan Hct 320-25 Mg Tablet] 1 TAB) PO SCH (18:30)
--- NOTE | 2019-01-11 18:43 | PDOC PROGRESS REPORT ---
Subjective Progress Note for:: 01/11/19 Subjective:: No chest pain or difficulty with breathing. No nausea or vomiting for last 24 hours. Remain NPO and on IV Cardene infusion for her blood pressure management. Reason For Visit: HYPERTENSIVE URGENCY/EMERGENCY,ACUTE ON CHRONIC Physical Exam Vital Signs: Temp Pulse Resp BP Pulse Ox 98.4 F 98 14 171/73 H 100 01/11/19 16:00 01/11/19 16:00 01/11/19 16:00 01/11/19 16:00 01/11/19 16:00 Intake & Output 01/10/19 01/11/19 01/12/19 06:59 06:59 06:59 Intake Total 3373 3839 1290 Output Total 1000 382 130 Balance 2373 3457 1160 Weight 88.1 kg 93.5 kg General appearance: PRESENT: no acute distress, obese Head exam: PRESENT: atraumatic, normocephalic Eye exam: PRESENT: conjunctiva pink, EOMI, PERRLA. ABSENT: scleral icterus Ear exam: PRESENT: normal external ear exam Mouth exam: PRESENT: moist Respiratory exam: PRESENT: clear to auscultation jeanette Cardiovascular exam: PRESENT: RRR. ABSENT: diastolic murmur, rubs, systolic murmur Vascular exam: ABSENT: pallor GI/Abdominal exam: PRESENT: normal bowel sounds, soft. ABSENT: distended, guarding, mass, organolmegaly, rebound, tenderness Extremities exam: ABSENT: pedal edema Neurological exam: PRESENT: alert, awake, oriented to person, oriented to place, oriented to time, oriented to situation, CN II-XII grossly intact. ABSENT: motor sensory deficit Psychiatric exam: PRESENT: appropriate affect, normal mood. ABSENT: homicidal ideation, suicidal ideation Skin exam: PRESENT: dry, warm Results Laboratory Results: 01/11/19 03:45 01/11/19 03:45 01/11/19 01/11/19 01/11/19 01:55 02:10 03:45 WBC 16.9 H RBC 3.69 L Hgb 9.2 L Hct 27.7 L MCV 75 L MCH 24.9 L MCHC 33.2 RDW 15.8 H Plt Count 261 Seg Neutrophils % 77.1 Lymphocytes % 10.7 L Monocytes % 11.4 Eosinophils % 0.2 Basophils % 0.6 Absolute Neutrophils 13.0 H Absolute Lymphocytes 1.8 Absolute Monocytes 1.9 H Absolute Eosinophils 0.0 Absolute Basophils 0.1 Carbonic Acid 0.91 L HCO3/H2CO3 Ratio 19:1 ABG pH 7.39 ABG pCO2 30.3 L ABG pO2 80.4 ABG HCO3 17.8 L ABG O2 Saturation 95.9 ABG Base Excess -6.1 FiO2 ROOM AIR Sodium 133.0 L Potassium 3.6 Chloride 105 Carbon Dioxide 18 L Anion Gap 10 BUN 37 H Creatinine 4.21 H Est GFR ( Amer) 13 L Est GFR (Non-Af Amer) 10 L Glucose 195 H Calcium 8.2 L Magnesium 1.5 L Total Bilirubin AST ALT Alkaline Phosphatase Total Protein Albumin 01/11/19 01/11/19 03:45 07:58 WBC RBC Hgb Hct MCV MCH MCHC RDW Plt Count Seg Neutrophils % Lymphocytes % Monocytes % Eosinophils % Basophils % Absolute Neutrophils Absolute Lymphocytes Absolute Monocytes Absolute Eosinophils Absolute Basophils Carbonic Acid HCO3/H2CO3 Ratio ABG pH ABG pCO2 ABG pO2 ABG HCO3 ABG O2 Saturation ABG Base Excess FiO2 Sodium 132.6 L Potassium 3.6 Chloride 102 Carbon Dioxide 20 L Anion Gap 11 BUN 37 H Creatinine 4.61 H Est GFR ( Amer) 11 L Est GFR (Non-Af Amer) 9 L Glucose 219 H Calcium 8.1 L Magnesium 1.9 Total Bilirubin 0.4 AST 24 ALT 26 Alkaline Phosphatase 83 Total Protein 6.0 L Albumin 3.1 L 01/09/19 09:11 Catheterized Urine Urine Culture - Final NO GROWTH 2 DAYS 01/09/19 01/09/19 01/09/19 08:03 08:03 23:20 Creatine Kinase 58 74 CK-MB (CK-2) 0.72 Troponin I 0.029 01/09/19 01/10/19 01/10/19 23:20 05:30 05:30 Creatine Kinase 84 CK-MB (CK-2) 2.65 2.41 Troponin I 0.235 0.252 Impressions: Chest X-Ray 01/09/19 08:20 IMPRESSION: NO ACUTE RADIOGRAPHIC FINDING IN THE CHEST. Head CT 01/09/19 10:24 IMPRESSION: No acute findings. EVIDENCE OF ACUTE STROKE: NO. Assessment & Plan - Diagnosis (1) Hypertensive emergency Is this a current diagnosis for this admission?: Yes Plan: Continue IV Cardene infusion and restart appropriate oral medication with hope to taper her off IV Cardene therapy in next 24 hours. (2) CKD (chronic kidney disease) stage 5, GFR less than 15 ml/min Is this a current diagnosis for this admission?: Yes Plan: Continue medical management and support. Dog Licenser input appreciated. (3) Diabetes mellitus type 2 in obese Is this a current diagnosis for this admission?: Yes Plan: Maintain on current humalog insulin sliding scale coverage. Allow clear liquid diet as tolerated. - Time Time Spent with patient: 25-34 minutes Medications reviewed and adjusted accordingly: Yes Anticipated discharge: Home with Homehealth Within: Other - Inpatient Certification Based on my medical assessment, after consideration of the patient's comorbidities, presenting symptoms, or acuity I expect that the services needed warrant INPATIENT care.: Yes I certify that my determination is in accordance with my understanding of Medicare's requirements for reasonable and necessary INPATIENT services [42 CFR 412.3e].: Yes Medical Necessity: Significant Comorbidiites Make Outpatient Treatment Too Risky, Need Close Monitoring Due to Risk of Patient Decompensation, Need For Con tinuous Telemetry Monitoring, Risk of Complication if Not Cared For in Hospital, Risk of Diagnosis Which Will Require Inpatient Eval/Care/Monitoring Post Hospital Care: D/C Insole Rounder Documentation - Plan Summary Plan Summary: Maintain on IV Cardene with restart of her home medication for blood pressure management. Start on clear liquid diet and advance as tolerated. Maintain on all other current medication management.
[2019-01-11] MEDS ORDERED: FUROSEMIDE 40 MG TABLET PO ONE (19:20)
[2019-01-11] MEDS: HYDRALAZINE HCL 25 MG TABLET PO SCH (21:26)
[2019-01-11] MEDS: CLONIDINE HCL 0.1 MG TABLET PO SCH (21:28)
[2019-01-11] MEDS: METOPROLOL TARTRATE 100 MG TABLET PO SCH (21:31)
[2019-01-11] MEDS: ATORVASTATIN CALCIUM 80 MG TABLET PO SCH (21:32)
[2019-01-11] MEDS: FAMOTIDINE INJ/PF 20 MG/2 ML SDV IV SCH (21:33)
[2019-01-11] MEDS ORDERED: FUROSEMIDE 40 MG TABLET ONE (21:51)
[2019-01-11] MEDS ORDERED: METOPROLOL TARTRATE 100 MG TABLET PO SCH (22:00)
[2019-01-11] MEDS ORDERED: HYDRALAZINE HCL 25 MG TABLET PO SCH (22:00)
[2019-01-12] MEDS: INSULIN LISPRO 100 UNIT/ML 3 ML VIAL SUBCUT SCH ×4 (00:16→17:32)
[2019-01-12] MEDS: HEPARIN SOD (PORCINE) 5,000 UNIT/ML 1 ML SYRINGE SUBCUT SCH ×3 (01:54→17:28)
[2019-01-12] MEDS: CLONIDINE HCL 0.1 MG TABLET PO SCH ×4 (05:13→22:14)
[2019-01-12] MEDS: HYDRALAZINE HCL 25 MG TABLET PO SCH ×4 (05:15→23:43)
[2019-01-12 06:15] LABS: ABSOLUTE BASOPHILS # (AUTO) 0.1 10^3/uL (0.0-0.2); ABSOLUTE EOSINOPHILS # (AUTO) 0.1 10^3/uL (0.0-0.6); ABSOLUTE LYMPHOCYTES (AUTO) 1.4 10^3/uL (0.5-4.7); ABSOLUTE MONOCYTES (AUTO) 1.7 10^3/uL (0.1-1.4); ABSOLUTE NEUT (AUTO) 9.8 10^3/uL (1.7-8.2); BASOPHILS % (AUTO) 0.5 % (0-2); EOSINOPHILS % (AUTO) 0.8 % (0-6); HEMATOCRIT 27.6 % (36.0-47.0); HEMOGLOBIN 9.3 g/dL (12.0-15.5); LYMPHOCYTES % (AUTO) 10.6 % (13-45); MEAN CORPUSCULAR HEMOGLOBIN 25.3 pg (27.0-33.4); MEAN CORPUSCULAR HGB CONC 33.6 g/dL (32.0-36.0); MEAN CORPUSCULAR VOLUME 75 fl (80-97); MONOCYTES % (AUTO) 13.2 % (3-13); PLATELET COUNT 245 10^3/uL (150-450); RED BLOOD COUNT 3.67 10^6/uL (3.72-5.28); RED CELL DISTRIBUTION WIDTH 15.5 % (11.5-14.0); SEGMENTED NEUTROPHILS % (AUTO) 74.9 % (42-78); TOTAL CELLS COUNTED % (AUTO) 100 %; WHITE BLOOD COUNT 13.1 10^3/uL (4.0-10.5)
[2019-01-12 07:12] LABS: ALANINE AMINOTRANSFERASE 24 U/L (9-52); ALBUMIN 2.8 g/dL (3.5-5.0); ALKALINE PHOSPHATASE 78 U/L (38-126); ANION GAP 8 (5-19); ASPARTATE AMINO TRANSFERASE 21 U/L (14-36); BILIRUBIN,DIRECT 0.3 mg/dL (0.0-0.4); BILIRUBIN,TOTAL 0.4 mg/dL (0.2-1.3); BLOOD UREA NITROGEN 38 mg/dL (7-20); CALCIUM 7.9 mg/dL (8.4-10.2); CARBON DIOXIDE 18 mmol/L (22-30); CHLORIDE 102 mmol/L (98-107); GLUCOSE 165 mg/dL (75-110); POTASSIUM 4.5 mmol/L (3.6-5.0); SODIUM 128.1 mmol/L (137-145); TOTAL PROTEIN 5.6 g/dL (6.3-8.2)
[2019-01-12] MEDS: POTASSI CL 20 MEQ/1/2NS 1L 20 MEQ/1,000 ML RTUINJ IV PRN ×2 (07:59→18:02)
[2019-01-12] MEDS: METOPROLOL TARTRATE 100 MG TABLET PO SCH ×2 (08:10→23:43)
[2019-01-12] MEDS ORDERED: CLONIDINE HCL 0.1 MG TABLET PO ONE (09:00)
[2019-01-12] MEDS ORDERED: HYDRALAZINE HCL 50 MG TABLET PO ONE (09:00)
[2019-01-12] MEDS ORDERED: ERGOCALCIFEROL (VITAMIN D2) 50000 UNIT (1.25 MG) CAPSULE PO SCH (10:00)
[2019-01-12] MEDS ORDERED: AMLODIPINE BESYLATE 10 MG TABLET PO SCH (10:00)
[2019-01-12] MEDS ORDERED: ISOSORBIDE MONONITRATE 30 MG TAB.ER.24H PO SCH (10:00)
[2019-01-12] MEDS: ASPIRIN 81 MG TABLET, ENT COATED PO SCH (10:18)
[2019-01-12] MEDS: FUROSEMIDE 40 MG TABLET PO SCH ×2 (10:18→17:27)
[2019-01-12] MEDS: ISOSORBIDE MONONITRATE 30 MG TAB.ER.24H PO SCH (10:18)
[2019-01-12] MEDS: AMLODIPINE BESYLATE 10 MG TABLET PO SCH (10:19)
--- NOTE | 2019-01-12 12:12 | PDOC PROGRESS REPORT ---
Subjective Progress Note for:: 01/12/19 Subjective:: No chest pain or difficulty with breathing. Tolerating clear liquid diet. No abdominal pain, nausea or vomiting. She is off IV Cardene at this time. Family refused anti HTN medication administration on the pretest that her rn lpn cna recommend SBP of 140-150 mmHg to them. Reason For Visit: HYPERTENSIVE URGENCY/EMERGENCY,ACUTE ON CHRONIC Physical Exam Vital Signs: Temp Pulse Resp BP Pulse Ox 98.8 F 72 10 L 138/57 H 100 01/12/19 10:00 01/12/19 08:40 01/12/19 10:00 01/12/19 09:09 01/12/19 10:00 Intake & Output 01/11/19 01/12/19 01/13/19 06:59 06:59 06:59 Intake Total 3839 2538 1320 Output Total 382 455 50 Balance 3457 2083 1270 Weight 93.5 kg 97 kg Physical Exam: General appearance: PRESENT: no acute distress, obese Head exam: PRESENT: atraumatic, normocephalic Eye exam: PRESENT: conjunctiva pink, EOMI, PERRLA. ABSENT: pallor, scleral icterus Ear exam: PRESENT: normal external ear exam Mouth exam: PRESENT: moist Respiratory exam: PRESENT: clear to auscultation jeanette Cardiovascular exam: PRESENT: RRR. ABSENT: diastolic murmur, rubs, systolic murmur GI/Abdominal exam: PRESENT: normal bowel sounds, soft. ABSENT: distended, guarding, mass, organomegaly, rebound, tenderness Extremities exam: ABSENT: pedal edema Neurological exam: PRESENT: alert, awake, oriented to person, oriented to place, oriented to time, oriented to situation, CN II-XII grossly intact. ABSENT: motor sensory deficit Psychiatric exam: PRESENT: appropriate affect, normal mood. ABSENT: homicidal ideation, suicidal ideation Skin exam: PRESENT: dry, warm Results Laboratory Results: 01/12/19 05:20 01/12/19 05:20 01/12/19 01/12/19 05:20 05:20 WBC 13.1 H RBC 3.67 L Hgb 9.3 L Hct 27.6 L MCV 75 L MCH 25.3 L MCHC 33.6 RDW 15.5 H Plt Count 245 Seg Neutrophils % 74.9 Lymphocytes % 10.6 L Monocytes % 13.2 H Eosinophils % 0.8 Basophils % 0.5 Absolute Neutrophils 9.8 H Absolute Lymphocytes 1.4 Absolute Monocytes 1.7 H Absolute Eosinophils 0.1 Absolute Basophils 0.1 Sodium 128.1 L Potassium 4.5 Chloride 102 Carbon Dioxide 18 L Anion Gap 8 BUN 38 H Creatinine 4.69 H Est GFR ( Amer) 11 L Est GFR (Non-Af Amer) 9 L Glucose 165 H Calcium 7.9 L Magnesium 1.9 Total Bilirubin 0.4 AST 21 ALT 24 Alkaline Phosphatase 78 Total Protein 5.6 L Albumin 2.8 L 01/09/19 09:11 Catheterized Urine Urine Culture - Final NO GROWTH 2 DAYS 01/09/19 01/09/19 01/09/19 08:03 08:03 23:20 Creatine Kinase 58 74 CK-MB (CK-2) 0.72 Troponin I 0.029 01/09/19 01/10/19 01/10/19 23:20 05:30 05:30 Creatine Kinase 84 CK-MB (CK-2) 2.65 2.41 Troponin I 0.235 0.252 Impressions: Chest X-Ray 01/09/19 08:20 IMPRESSION: NO ACUTE RADIOGRAPHIC FINDING IN THE CHEST. Head CT 01/09/19 10:24 IMPRESSION: No acute findings. EVIDENCE OF ACUTE STROKE: NO. Assessment & Plan - Diagnosis (1) Hypertensive emergency Is this a current diagnosis for this admission?: Yes (2) CKD (chronic kidney disease) stage 5, GFR less than 15 ml/min Is this a current diagnosis for this admission?: Yes (3) Diabetes mellitus type 2 in obese Is this a current diagnosis for this admission?: Yes - Time Time Spent with patient: 25-34 minutes Medications reviewed and adjusted accordingly: Yes Anticipated discharge: Home with Homehealth Within: Other - Inpatient Certification Based on my medical assessment, after consideration of the patient's comorbidities, presenting symptoms, or acuity I expect that the services needed warrant INPATIENT care.: Yes I certify that my determination is in accordance with my understanding of Medicare's requirements for reasonable and necessary INPATIENT services [42 CFR 412.3e].: Yes Medical Necessity: Significant Comorbidiites Make Outpatient Treatment Too Risky, Need Close Monitoring Due to Risk of Patient Decompensation, Need For Continuous Telemetry Monitoring, Risk of Complication if Not Cared For in Hospital, Risk of Diagnosis Which Will Require Inpatient Eval/Care/Monitoring Post Hospital Care: D/C Digital Media Analyst Documentation - Plan Summary Plan Summary: Continue current medication management.
[2019-01-12] MEDS: ATORVASTATIN CALCIUM 80 MG TABLET PO SCH (22:14)
[2019-01-12] MEDS: FAMOTIDINE INJ/PF 20 MG/2 ML SDV IV SCH (22:14)
[2019-01-13] MEDS: INSULIN LISPRO 100 UNIT/ML 3 ML VIAL SUBCUT SCH ×5 (00:29→23:37)
[2019-01-13] MEDS: HEPARIN SOD (PORCINE) 5,000 UNIT/ML 1 ML SYRINGE SUBCUT SCH ×3 (01:51→18:15)
[2019-01-13] MEDS: POTASSI CL 20 MEQ/1/2NS 1L 20 MEQ/1,000 ML RTUINJ IV PRN (03:02)
[2019-01-13] MEDS: CLONIDINE HCL 0.1 MG TABLET PO SCH ×3 (05:19→21:22)
[2019-01-13 05:51] LABS: BLOOD UREA NITROGEN 40 mg/dL (7-20); CALCIUM 7.6 mg/dL (8.4-10.2); CARBON DIOXIDE 19 mmol/L (22-30); CHLORIDE 104 mmol/L (98-107); GLUCOSE 129 mg/dL (75-110); POTASSIUM 4.5 mmol/L (3.6-5.0)
[2019-01-13 05:53] LABS: ANION GAP 7 (5-19); SODIUM 129.8 mmol/L (137-145)
[2019-01-13] MEDS: HYDRALAZINE HCL 25 MG TABLET PO SCH ×3 (06:44→21:23)
[2019-01-13] MEDS: METOPROLOL TARTRATE 100 MG TABLET PO SCH ×2 (10:07→21:22)
[2019-01-13] MEDS: ASPIRIN 81 MG TABLET, ENT COATED PO SCH (10:08)
[2019-01-13] MEDS: AMLODIPINE BESYLATE 10 MG TABLET PO SCH (10:08)
[2019-01-13] MEDS: FUROSEMIDE 40 MG TABLET PO SCH ×2 (10:09→18:17)
[2019-01-13] MEDS: ISOSORBIDE MONONITRATE 30 MG TAB.ER.24H PO SCH (10:10)
--- NOTE | 2019-01-13 12:13 | PDOC PROGRESS REPORT ---
Subjective Progress Note for:: 01/13/19 Reason For Visit: Patient seen in the ICU today. She is looking a whole lot more better and comfortable than when I last saw her on Sunday. She has had no more nausea or vomiting. She is tolerating clear liquids. Her grand daughter is by the bedside and is happy with the progress that her grandmother has made. No complaints of any abdominal pains, fever or chills. She had one episode of diarrhea this morning according to patient and the treating nurse Grace with whom I discussed the patient. Labs and medications were reviewed with the patient and the nurse. Physical Exam Vital Signs: Temp Pulse Resp BP Pulse Ox 98.6 F 71 16 182/71 H 100 01/13/19 08:00 01/13/19 10:00 01/13/19 10:00 01/13/19 10:00 01/13/19 10:00 Intake & Output 01/12/19 01/13/19 01/14/19 06:59 06:59 06:59 Intake Total 2538 4200 Output Total 455 1800 430 Balance 2083 2400 -430 Weight 97 kg 97 kg General appearance: PRESENT: no acute distress Respiratory exam: PRESENT: clear to auscultation jeanette. ABSENT: crackles Cardiovascular exam: PRESENT: +S1, +S2, systolic murmur GI/Abdominal exam: PRESENT: normal bowel sounds, soft. ABSENT: organomegaly, tenderness Extremities exam: PRESENT: pedal edema - -Trace plus Neurological exam: PRESENT: alert, awake, oriented to person, oriented to place Psychiatric exam: PRESENT: appropriate affect Skin exam: ABSENT: cyanosis, mottled, rash Results Laboratory Results: 01/12/19 05:20 01/13/19 05:25 01/13/19 05:25 Sodium 129.8 L Potassium 4.5 Chloride 104 Carbon Dioxide 19 L Anion Gap 7 BUN 40 H Creatinine 4.40 H Est GFR ( Amer) 12 L Est GFR (Non-Af Amer) 10 L Glucose 129 H Calcium 7.6 L 01/09/19 01/09/19 01/09/19 08:03 08:03 23:20 Creatine Kinase 58 74 CK-MB (CK-2) 0.72 Troponin I 0.029 01/09/19 01/10/19 01/10/19 23:20 05:30 05:30 Creatine Kinase 84 CK-MB (CK-2) 2.65 2.41 Troponin I 0.235 0.252 Impressions: Chest X-Ray 01/09/19 08:20 IMPRESSION: NO ACUTE RADIOGRAPHIC FINDING IN THE CHEST. Head CT 01/09/19 10:24 IMPRESSION: No acute findings. EVIDENCE OF ACUTE STROKE: NO. Assessment & Plan - Diagnosis (1) Acute kidney injury superimposed on chronic kidney disease Is this a current diagnosis for this admission?: Yes Plan: Currently nonoliguric. Patient's baseline creatinine is around 3. She came in with a creatinine of 3.1 and today is 4.4 after peaking at 4.6. Obviously her hypertensive urgency has a big factor in her acute insult. Her nausea vomiting from gastroparesis is improving. She obviously has had multiple admissions for similar issues in the past. Poor intake the days preceding her admission. No indications for acute renal replacement therapies at the moment. Discussed with the patient that we need to get the blood pressure under better control and now that her vomiting seems to resolve she can start on oral antihypertensives. Discussed with the patient that I would like to get a blood pressure around 140 systolic. I am going to stop the IV fluids including the potassium replacements as her electrolytes are stable. I would advance her liquids if okay with by the hospitalist. I would also keep her on a fluid restriction of thousand cc given her low sodium. Monitor. (2) Chronic kidney disease, stage 4 (severe) Is this a current diagnosis for this admission?: Yes Plan: From diabetic nephropathy. Discussed the need for tight blood sugar and blood pressure control (3) Gastroparesis Is this a current diagnosis for this admission?: Yes Plan: Chronic and recurrent. Currently her acute crisis seems to have resolved. Adv ance diet as ordered by hospitalist. (4) Hypertensive emergency Is this a current diagnosis for this admission?: Yes Plan: Improved but needs blood pressure under better control. Discussed with the patient why we need to get the blood pressure under better control and will advance her oral medications accordingly. (5) Intractable vomiting with nausea Qualifiers: Vomiting type: cyclical vomiting Qualified Code(s): G43.A1 - Cyclical vomiting, intractable Is this a current diagnosis for this admission?: Yes Plan: Currently resolved. (6) Metabolic acidosis Is this a current diagnosis for this admission?: Yes Plan: Improving. (7) Hypokalemia Is this a current diagnosis for this admission?: Yes Plan: Resolved. Stop IV replacements. 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 (9) Type 2 diabetes mellitus Qualifiers: Diabetes mellitus truck terminal manager insulin use: with truck terminal manager use Diabetes mellitus complication status: with kidney complications Diabetes mellitus complication detail: with chronic kidney disease Chronic kidney disease stage: stage 3 (moderate) Qualified Code(s): E11.22 - Type 2 diabetes mellitus with diabetic chronic kidney disease; N18.3 - Chronic kidney disease, stage 3 (moderate); N18.3 - Chronic kidney disease, stage 3 (moderate); Z79.4 - termite treater helper (current) use of insulin; Z79.4 - halfway (current) use of insulin; Z79.4 - halfway (current) use of insulin; Z79.4 - halfway (current) use of insulin Plan: Advised the need for tight diabetic control to prevent further complications down the road. (10) Hyponatremia Plan: Monitor. See fluid management. Follow-up with labs this evening
[2019-01-13 13:50] LABS: APPEARANCE,URINE CLEAR; BILIRUBIN,URINE NEGATIVE (NEGATIVE); COLOR,URINE STRAW; GLUCOSE, URINE NEGATIVE (NEGATIVE); KETONES,URINE NEGATIVE (NEGATIVE); LEUKOCYTE ESTERASE,URINE TRACE (NEGATIVE); NITRITE,URINE NEGATIVE (NEGATIVE); PROTEIN,URINE 100 mg/dL (NEGATIVE); URINE SPECIFIC GRAVITY 1.004; UROBILINOGEN,URINE NEGATIVE mg/dL (<2.0)
[2019-01-13 20:06] LABS: BLOOD UREA NITROGEN 40 mg/dL (7-20); CALCIUM 7.5 mg/dL (8.4-10.2); CHLORIDE 109 mmol/L (98-107); GLUCOSE 199 mg/dL (75-110); POTASSIUM 4.7 mmol/L (3.6-5.0)
[2019-01-13 20:12] LABS: CARBON DIOXIDE 18 mmol/L (22-30); SODIUM 131.3 mmol/L (137-145)
[2019-01-13 20:18] LABS: ANION GAP 4 (5-19)
--- NOTE | 2019-01-13 20:59 | PDOC PROGRESS REPORT ---
Subjective Progress Note for:: 01/13/19 Subjective:: Patient seen by the bedside, she feels better today no more nausea ,vomiting Reason For Visit: HYPERTENSIVE CRISIS Physical Exam Vital Signs: Temp Pulse Resp BP Pulse Ox 99.7 F 60 15 155/62 H 100 01/13/19 20:13 01/13/19 20:29 01/13/19 19:00 01/13/19 18:36 01/13/19 19:00 Intake & Output 01/12/19 01/13/19 01/14/19 06:59 06:59 06:59 Intake Total 2538 4200 245 Output Total 455 1800 1140 Balance 2083 2400 -895 Weight 97 kg 97 kg General appearance: PRESENT: no acute distress Eye exam: PRESENT: PERRLA Respiratory exam: PRESENT: clear to auscultation jeanette Cardiovascular exam: PRESENT: +S1, +S2 GI/Abdominal exam: PRESENT: soft Neurological exam: PRESENT: alert, CN II-XII grossly intact Results Laboratory Results: 01/12/19 05:20 01/13/19 19:30 01/13/19 01/13/19 01/13/19 05:25 13:25 19:30 Sodium 129.8 L 131.3 L Potassium 4.5 4.7 Chloride 104 109 H Carbon Dioxide 19 L 18 L Anion Gap 7 4 L BUN 40 H 40 H Creatinine 4.40 H 4.10 H Est GFR ( Amer) 12 L 13 L Est GFR (Non-Af Amer) 10 L 11 L Glucose 129 H 199 H Calcium 7.6 L 7.5 L Urine Color STRAW Urine Appearance CLEAR Urine pH 5.0 Ur Specific [place] 1.004 Urine Protein 100 H Urine Glucose (UA) NEGATIVE Urine Ketones NEGATIVE Urine Blood NEGATIVE Urine Nitrite NEGATIVE Ur Leukocyte Esterase TRACE H Urine WBC (Auto) 2 Urine RBC (Auto) 1 01/09/19 01/09/19 01/09/19 08:03 08:03 23:20 Creatine Kinase 58 74 CK-MB (CK-2) 0.72 Troponin I 0.029 01/09/19 01/10/19 01/10/19 23:20 05:30 05:30 Creatine Kinase 84 CK-MB (CK-2) 2.65 2.41 Troponin I 0.235 0.252 Impressions: Chest X-Ray 01/09/19 08:20 IMPRESSION: NO ACUTE RADIOGRAPHIC FINDING IN THE CHEST. Head CT 01/09/19 10:24 IMPRESSION: No acute findings. EVIDENCE OF ACUTE STROKE: NO. Assessment & Plan - Diagnosis (1) Hypertensive emergency Is this a current diagnosis for this admission?: Yes Plan: Discontinue Cardene infusion (2) Acute kidney injury superimposed on chronic kidney disease Is this a current diagnosis for this admission?: Yes (3) Chronic kidney disease, stage 4 (severe) Is this a current diagnosis for this admission?: Yes (4) Gastroparesis Is this a current diagnosis for this admission?: Yes
[2019-01-13] MEDS: ATORVASTATIN CALCIUM 80 MG TABLET PO SCH (21:22)
[2019-01-14] MEDS: HEPARIN SOD (PORCINE) 5,000 UNIT/ML 1 ML SYRINGE SUBCUT SCH ×3 (01:08→17:12)
[2019-01-14 05:49] LABS: ANION GAP 5 (5-19); BLOOD UREA NITROGEN 41 mg/dL (7-20); CALCIUM 8.2 mg/dL (8.4-10.2); CARBON DIOXIDE 19 mmol/L (22-30); CHLORIDE 110 mmol/L (98-107); GLUCOSE 154 mg/dL (75-110); POTASSIUM 4.8 mmol/L (3.6-5.0); SODIUM 134.2 mmol/L (137-145)
[2019-01-14] MEDS: HYDRALAZINE HCL 25 MG TABLET PO SCH ×3 (06:18→21:28)
[2019-01-14] MEDS: CLONIDINE HCL 0.1 MG TABLET PO SCH ×3 (06:19→21:27)
[2019-01-14] MEDS: INSULIN LISPRO 100 UNIT/ML 3 ML VIAL SUBCUT SCH ×4 (06:20→23:02)
[2019-01-14] MEDS: ISOSORBIDE MONONITRATE 30 MG TAB.ER.24H PO SCH (09:38)
[2019-01-14] MEDS: AMLODIPINE BESYLATE 10 MG TABLET PO SCH (09:39)
[2019-01-14] MEDS: FUROSEMIDE 40 MG TABLET PO SCH ×2 (09:39→17:13)
[2019-01-14] MEDS: METOPROLOL TARTRATE 100 MG TABLET PO SCH ×2 (09:39→21:28)
[2019-01-14] MEDS: ASPIRIN 81 MG TABLET, ENT COATED PO SCH (09:39)
--- NOTE | 2019-01-14 17:59 | PDOC PROGRESS REPORT ---
Subjective Progress Note for:: 01/14/19 Reason For Visit: Patient seen today in the ICU. Grand daughter by the bedside. Patient is feeling great. She is tolerating solids without any history of nausea vomiting. No further episodes of diarrhea. Vital signs are stable and blood pressure is improved on current medications. Eager to go home. Labs and medications were reviewed. Urine output is good. No symptoms to indicate uremia. Physical Exam Vital Signs: Temp Pulse Resp BP Pulse Ox 99.3 F 65 20 157/63 H 100 01/14/19 16:00 01/14/19 16:00 01/14/19 16:00 01/14/19 16:00 01/14/19 16:00 Intake & Output 01/13/19 01/14/19 01/15/19 06:59 06:59 06:59 Intake Total 4200 245 1450 Output Total 1800 1840 935 Balance 2400 -1595 515 Weight 97 kg 96.1 kg General appearance: PRESENT: no acute distress Respiratory exam: PRESENT: clear to auscultation jeanette. ABSENT: crackles Cardiovascular exam: PRESENT: +S1, +S2, systolic murmur GI/Abdominal exam: PRESENT: normal bowel sounds, soft. ABSENT: organomegaly, tenderness Extremities exam: ABSENT: pedal edema Neurological exam: PRESENT: alert, awake, oriented to person, oriented to place Psychiatric exam: PRESENT: appropriate affect Results Laboratory Results: 01/12/19 05:20 01/14/19 05:08 01/13/19 01/14/19 19:30 05:08 Sodium 131.3 L 134.2 L Potassium 4.7 4.8 Chloride 109 H 110 H Carbon Dioxide 18 L 19 L Anion Gap 4 L 5 BUN 40 H 41 H Creatinine 4.10 H 4.38 H Est GFR ( Amer) 13 L 12 L Est GFR (Non-Af Amer) 11 L 10 L Glucose 199 H 154 H Calcium 7.5 L 8.2 L 01/09/19 01/09/19 01/09/19 08:03 08:03 23:20 Creatine Kinase 58 74 CK-MB (CK-2) 0.72 Troponin I 0.029 01/09/19 01/10/19 01/10/19 23:20 05:30 05:30 Creatine Kinase 84 CK-MB (CK-2) 2.65 2.41 Troponin I 0.235 0.252 Impressions: Chest X-Ray 01/09/19 08:20 IMPRESSION: NO ACUTE RADIOGRAPHIC FINDING IN THE CHEST. Head CT 01/09/19 10:24 IMPRESSION: No acute findings. EVIDENCE OF ACUTE STROKE: NO. Assessment & Plan - Diagnosis (1) Acute kidney injury superimposed on chronic kidney disease Is this a current diagnosis for this admission?: Yes Plan: Currently nonoliguric. Patient's baseline creatinine is around 3. She came in with a creatinine of 3.1 and today is 4.3 after peaking at 4.6. Obviously her hypertensive urgency has a big factor in her acute insult. Her nausea vomiting from gastroparesis is resolved. Discussed with the patient that I would like to get a blood pressure around 140 systolic.No symptoms of uremia. Clinically still on the dry side and therefore will cut back on the Lasix to just once a day and monitor.No acute indications for renal replacements at the moment. Once discharged she will have to follow-up with us as an outpatient for obvious reaso ns. Monitor. (2) Chronic kidney disease, stage 4 (severe) Is this a current diagnosis for this admission?: Yes Plan: From diabetic nephropathy. Basse creatinine was around 3. Discussed the need for tight blood sugar and blood pressure control (3) Gastroparesis Is this a current diagnosis for this admission?: Yes Plan: Resolved. (4) Hypertensive emergency Is this a current diagnosis for this admission?: Yes Plan: Improved but needs blood pressure under better control. Discussed with the p atient why we need to get the blood pressure under better control and will advance her oral medications accordingly. (5) Intractable vomiting with nausea Qualifiers: Vomiting type: cyclical vomiting Qualified Code(s): G43.A1 - Cyclical vomiting, intractable Is this a current diagnosis for this admission?: Yes Plan: Resolved. (6) Metabolic acidosis Is this a current diagnosis for this admission?: Yes Plan: Improving. (7) Hypokalemia Is this a current diagnosis for this admission?: Yes Plan: Resolved. Off all replacements. 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 (9) Type 2 diabetes mellitus Qualifiers: Diabetes mellitus senior care insulin use: with long distance operator use Diabetes mellitus complication status: with kidney complications Diabetes mellitus complication detail: with chronic kidney disease Chronic kidney disease stage: stage 3 (moderate) Qualified Code(s): E11.22 - Type 2 diabetes mellitus with diabetic chronic kidney disease; N18.3 - Chronic kidney disease, stage 3 (moderate); N18.3 - Chronic kidney disease, stage 3 (moderate); Z79.4 - buttermaker helper (current) use of insulin; Z79.4 - buttermaker helper (current) use of insulin; Z79.4 - buttermaker helper (current) use of insulin; Z79.4 - buttermaker helper (current) use of insulin Plan: Advised the need for tight diabetic control to prevent further complications down the road. (10) Hyponatremia Plan: Improving with current sodium at 134 compared to 129 yesterday.
[2019-01-14] MEDS: ATORVASTATIN CALCIUM 80 MG TABLET PO SCH (21:27)
--- NOTE | 2019-01-14 22:13 | PDOC PROGRESS REPORT ---
Subjective Progress Note for:: 01/14/19 Subjective:: Patient seen by the bedside she is feeling better Reason For Visit: HYPERTENSIVE CRISIS Physical Exam Vital Signs: Temp Pulse Resp BP Pulse Ox 99.5 F 65 18 148/77 H 100 01/14/19 20:00 01/14/19 16:00 01/14/19 18:07 01/14/19 18:07 01/14/19 18:07 Intake & Output 01/13/19 01/14/19 01/15/19 06:59 06:59 06:59 Intake Total 4200 245 1450 Output Total 1800 1840 1185 Balance 2400 -1595 265 Weight 97 kg 96.1 kg General appearance: PRESENT: no acute distress Eye exam: PRESENT: PERRLA Respiratory exam: PRESENT: clear to auscultation jeanette Cardiovascular exam: PRESENT: +S1, +S2 GI/Abdominal exam: PRESENT: soft Neurological exam: PRESENT: alert, CN II-XII grossly intact Results Laboratory Results: 01/12/19 05:20 01/14/19 05:08 01/14/19 05:08 Sodium 134.2 L Potassium 4.8 Chloride 110 H Carbon Dioxide 19 L Anion Gap 5 BUN 41 H Creatinine 4.38 H Est GFR ( Amer) 12 L Est GFR (Non-Af Amer) 10 L Glucose 154 H Calcium 8.2 L 01/09/19 01/09/19 01/09/19 08:03 08:03 23:20 Creatine Kinase 58 74 CK-MB (CK-2) 0.72 Troponin I 0.029 01/09/19 01/10/19 01/10/19 23:20 05:30 05:30 Creatine Kinase 84 CK-MB (CK-2) 2.65 2.41 Troponin I 0.235 0.252 Impressions: Chest X-Ray 01/09/19 08:20 IMPRESSION: NO ACUTE RADIOGRAPHIC FINDING IN THE CHEST. Head CT 01/09/19 10:24 IMPRESSION: No acute findings. EVIDENCE OF ACUTE STROKE: NO. Assessment & Plan - Diagnosis (1) Hypertensive emergency Is this a current diagnosis for this admission?: Yes Plan: Improved (2) Acute kidney injury superimposed on chronic kidney disease Is this a current diagnosis for this admission?: Yes (3) Chronic kidney disease, stage 4 (severe) Is this a current diagnosis for this admission?: Yes (4) Gastroparesis Is this a current diagnosis for this admission?: Yes Plan: There is no more vomiting
[2019-01-15] MEDS: HEPARIN SOD (PORCINE) 5,000 UNIT/ML 1 ML SYRINGE SUBCUT SCH ×2 (01:17→09:13)
[2019-01-15] MEDS: CLONIDINE HCL 0.1 MG TABLET PO SCH ×2 (05:27→13:09)
[2019-01-15] MEDS: HYDRALAZINE HCL 25 MG TABLET PO SCH ×2 (05:28→13:09)
[2019-01-15] MEDS ORDERED: FUROSEMIDE 40 MG TABLET PO SCH (08:00)
[2019-01-15] MEDS: INSULIN LISPRO 100 UNIT/ML 3 ML VIAL SUBCUT SCH ×2 (08:13→11:34)
[2019-01-15] MEDS: AMLODIPINE BESYLATE 10 MG TABLET PO SCH (09:11)
[2019-01-15] MEDS: ASPIRIN 81 MG TABLET, ENT COATED PO SCH (09:11)
[2019-01-15] MEDS: METOPROLOL TARTRATE 100 MG TABLET PO SCH (09:11)
[2019-01-15] MEDS: ISOSORBIDE MONONITRATE 30 MG TAB.ER.24H PO SCH (09:12)
[2019-01-15 10:39] LABS: ANION GAP 8 (5-19); BLOOD UREA NITROGEN 41 mg/dL (7-20); CALCIUM 8.3 mg/dL (8.4-10.2); CARBON DIOXIDE 20 mmol/L (22-30); CHLORIDE 107 mmol/L (98-107); GLUCOSE 199 mg/dL (75-110); POTASSIUM 4.9 mmol/L (3.6-5.0); SODIUM 134.8 mmol/L (137-145)
--- NOTE | 2019-01-15 12:06 | PDOC PROGRESS REPORT ---
Subjective Progress Note for:: 01/15/19 Reason For Visit: Patient seen this morning. She is doing very well. Tolerating solids. Eager to go home. Labs and medications were reviewed with the patient that shows improving renal numbers. Physical Exam Vital Signs: Temp Pulse Resp BP Pulse Ox 97.9 F 58 L 16 176/67 H 100 01/15/19 07:00 01/15/19 08:22 01/15/19 10:00 01/15/19 09:37 01/15/19 10:00 Intake & Output 01/14/19 01/15/19 01/16/19 06:59 06:59 06:59 Intake Total 245 1450 Output Total 1840 1385 250 Balance -1595 65 -250 Weight 96.1 kg 95.6 kg General appearance: PRESENT: no acute distress Respiratory exam: PRESENT: clear to auscultation jeanette. ABSENT: crackles Cardiovascular exam: PRESENT: +S1, +S2, systolic murmur GI/Abdominal exam: PRESENT: normal bowel sounds, soft. ABSENT: organomegaly, tenderness Neurological exam: PRESENT: alert, awake, oriented to person, oriented to place, oriented to time Results Laboratory Results: 01/12/19 05:20 01/15/19 10:00 01/15/19 10:00 Sodium 134.8 L Potassium 4.9 Chloride 107 Carbon Dioxide 20 L Anion Gap 8 BUN 41 H Creatinine 3.62 H Est GFR ( Amer) 15 L Est GFR (Non-Af Amer) 12 L Glucose 199 H Calcium 8.3 L 01/10/19 05:30 Blood Blood Culture - Final NO GROWTH IN 5 DAYS 01/09/19 23:20 Blood Blood Culture - Final NO GROWTH IN 5 DAYS 01/09/19 01/09/19 01/09/19 08:03 08:03 23:20 Creatine Kinase 58 74 CK-MB (CK-2) 0.72 Troponin I 0.029 01/09/19 01/10/19 01/10/19 23:20 05:30 05:30 Creatine Kinase 84 CK-MB (CK-2) 2.65 2.41 Troponin I 0.235 0.252 Impressions: Chest X-Ray 01/09/19 08:20 IMPRESSION: NO ACUTE RADIOGRAPHIC FINDING IN THE CHEST. Head CT 01/09/19 10:24 IMPRESSION: No acute findings. EVIDENCE OF ACUTE STROKE: NO. Assessment & Plan - Diagnosis (1) Acute kidney injury superimposed on chronic kidney disease Is this a current diagnosis for this admission?: Yes Plan: Currently nonoliguric. Patient's baseline creatinine is around 3. She came in with a creatinine of 3.1 and today is 3.6 after peaking at 4.6. Obviously her hypertensive urgency has a big factor in her acute insult. Her nausea vomiting from gastroparesis is resolved. Advised to keep her blood pressure under tight control. From a renal point of view she is ready to be discharged. Once discharged she will have to follow-up with us as an outpatient for obvious reasons. Monitor. (2) Chronic kidney disease, stage 4 (severe) Is this a current diagnosis for this admission?: Yes Plan: From diabetic nephropathy. Basse creatinine was around 3. Discussed the need for tight blood sugar and blood pressure control (3) Gastroparesis Is this a current diagnosis for this admission?: Yes Plan: Resolved. (4) Hypertensive emergency Is this a current diagnosis for this admission?: Yes Plan: Improved but needs blood pressure under better control. Discussed with the patient why we need to get the blood pressure under better control and will adv ance her oral medications accordingly.I am starting her on valsartan 80 mg daily and will give the first dose now. (5) Intractable vomiting with nausea Qualifiers: Vomiting type: cyclical vomiting Qualified Code(s): G43.A1 - Cyclical vomiting, intractable Is this a current diagnosis for this admission?: Yes Plan: Resolved. (6) Metabolic acidosis Is this a current diagnosis for this admission?: Yes Plan: Improving. (7) Hypokalemia Is this a current diagnosis for this admission?: Yes Plan: Resolved. Off all replacements. (8) Nephrotic range proteinuria Plan: From diabetic nephropathy.She needs to be on a raas eliazar and I am reintroducing valsartan at a lower dose. Needs outpatient monitoring. (9) Type 2 diabetes mellitus Qualifiers: Diabetes mellitus fpc insulin use: with fpc use Diabetes mellitus complication status: with kidney complications Diabetes mellitus complication detail: with chronic kidney disease Chronic kidney disease stage: stage 3 (moderate) Qualified Code(s): E11.22 - Type 2 diabetes mellitus with diabetic chronic kidney disease; N18.3 - Chronic kidney disease, stage 3 (moderate); N18.3 - Chronic kidney disease, stage 3 (moderate); Z79.4 - senior care (current) use of insulin; Z79.4 - terminal worker (current) use of insulin; Z79.4 - terminal worker (current) use of insulin; Z79.4 - senior care (current) use of insulin Plan: Advised the need for tight diabetic control to prevent further complications down the road. (10) Hyponatremia Plan: Improving with current sodium at 134.
[2019-01-15] MEDS ORDERED: VALSARTAN 80 MG TABLET PO SCH (13:00)
--- NOTE | 2019-01-15 14:43 | PDOC DISCHARGE SUMMARY ---
General - Admit/Disc Date/PCP Admission Date/Primary Care Provider: 01/09/19 14:26 QUINCY ALEJO MD Discharge Date: 01/15/19 - Discharge Diagnosis (1) Hypertensive emergency Is this a current diagnosis for this admission?: Yes (2) Acute kidney injury superimposed on chronic kidney disease Is this a current diagnosis for this admission?: Yes (3) Chronic kidney disease, stage 4 (severe) Is this a current diagnosis for this admission?: Yes (4) Gastroparesis Is this a current diagnosis for this admission?: Yes - Additional Information Home Medications: RX: Amlodipine Besylate [Norvasc 10 mg Tablet] 10 mg PO DAILY 01/09/19 RX: Aspirin [Adult Low Dose Aspirin EC] 81 mg PO DAILY 01/09/19 RX: Atorvastatin Calcium [Lipitor 80 mg Tablet] 80 mg PO QHS 01/09/19 RX: Clonidine HCl [Catapres 0.3 mg Tablet] 0.3 mg PO Q8 01/09/19 RX: Ergocalciferol (Vitamin D2) [Drisdol 50,000 unit (1.25MG) Capsule] 50,000 unit PO ROSEN@1000 01/09/19 RX: Furosemide [Lasix 40 mg Tablet] 40 mg PO BID 01/09/19 RX: Hydralazine HCl [Apresoline 25 mg Tablet] 50 mg PO Q8 01/09/19 RX: Isosorbide Mononitrate [Imdur 30 mg Tablet.er] 30 mg PO DAILY 01/09/19 RX: Metoprolol Tartrate [Lopressor 100 mg Tablet] 100 mg PO Q12 01/09/19 RX: Valsartan/Hydrochlorothiazide [Diovan Hct 320-25 mg Tablet] 1 tab PO DAILY 01/09/19 History of Present Illness History of Present Illness: YG METZ is a 73 year old female Patient with chronic kidney disease stage IV, diabetes nephropathy, diabetic gastroparesis she came to the emergency room for evaluation of persistent vomiting with a background of hypertensive urgency. Patient has presented in this fashion multiple times she was evaluated in the past with upper endoscopies ,CAT scans ultimately she was diagnosed with diabetic gastroparesis.She has multiple underlying comorbid conditions including coronary artery disease Hospital Course Hospital Course: Admitted for the management of hypertensive emergency, acute kidney injury, persistent vomiting due to diabetic related gastroparesis . The blood pressure was treated with intravenous Cardene infusion in intensive care unit she was seen by nephrology, she has underlying chronic kidney due to diabetes nephropathy, she has persistent vomiting due to gastroparesis, she has a history of vomiting from this condition ,on this admission she was treated with prokin etic drug Reglan with good result. Physical Exam Vital Signs: Temp Pulse Resp BP Pulse Ox 98.0 F 58 L 13 159/68 H 98 01/15/19 12:00 01/15/19 12:00 01/15/19 14:07 01/15/19 14:07 01/15/19 14:07 Intake & Output 01/14/19 01/15/19 01/16/19 06:59 06:59 06:59 Intake Total 245 1450 Output Total 1840 1385 800 Balance -1595 65 -800 Weight 96.1 kg 95.6 kg General appearance: PRESENT: no acute distress, well-developed, well-nourished Head exam: PRESENT: atraumatic, normocephalic Eye exam: PRESENT: conjunctiva pink, EOMI, PERRLA Ear exam: PRESENT: normal external ear exam Mouth exam: PRESENT: moist, tongue midline Neck exam: PRESENT: full ROM Respiratory exam: PRESENT: clear to auscultation jeanette Cardiovascular exam: PRESENT: RRR, +S1, +S2 Vascular exam: PRESENT: normal capillary refill GI/Abdominal exam: PRESENT: normal bowel sounds, soft Rectal exam: PRESENT: deferred Neurological exam: PRESENT: alert, CN II-XII grossly intact Psychiatric exam: PRESENT: appropriate affect, normal mood Skin exam: PRESENT: dry, intact, warm Results Laboratory Results: 01/12/19 05:20 01/15/19 10:00 01/15/19 10:00 Sodium 134.8 L Potassium 4.9 Chloride 107 Carbon Dioxide 20 L Anion Gap 8 BUN 41 H Creatinine 3.62 H Est GFR ( Amer) 15 L Est GFR (Non-Af Amer) 12 L Glucose 199 H Calcium 8.3 L 01/10/19 05:30 Blood Blood Culture - Final NO GROWTH IN 5 DAYS 01/09/19 23:20 Blood Blood Culture - Final NO GROWTH IN 5 DAYS 01/09/19 01/09/19 01/09/19 08:03 08:03 23:20 Creatine Kinase 58 74 CK-MB (CK-2) 0.72 Troponin I 0.029 01/09/19 01/10/19 01/10/19 23:20 05:30 05:30 Creatine Kinase 84 CK-MB (CK-2) 2.65 2.41 Troponin I 0.235 0.252 Impressions: Chest X-Ray 01/09/19 08:20 IMPRESSION: NO ACUTE RADIOGRAPHIC FINDING IN THE CHEST. Head CT 01/09/19 10:24 IMPRESSION: No acute findings. EVIDENCE OF ACUTE STROKE: NO. Qualifiers - * PATIENT BEING DISCHARGED WITH ANY OF THE FOLLOWING DIAGNOSIS: No
[2019-01-15 15:53] VITALS: BP 163/60
== END 2019-01-15 16:00 | disposition home health service (06) | DRG 683 ==
LOC: ER 07:26 → EH 14:26 → ICU 17:50
PROVIDERS: ADMIT Internal Medicine; ATTEND Internal Medicine
PROC: 02H633Z Insertion of Infusion Device into Right Atrium, Percutaneous Approach (ICD-10-PCS; principal; 2019-01-09)
PROC: B244ZZZ Ultrasonography of Right Heart (ICD-10-PCS; 2019-01-09)
DX: N17.9 Acute kidney failure, unspecified (principal); I16.1 Hypertensive emergency; E87.2 Acidosis; E87.1 Hypo-osmolality and hyponatremia; E78.00 Pure hypercholesterolemia, unspecified; N18.4 Chronic kidney disease, stage 4 (severe); E11.21 Type 2 diabetes mellitus with diabetic nephropathy; I25.10 Atherosclerotic heart disease of native coronary artery without angina pectoris; E11.43 Type 2 diabetes mellitus with diabetic autonomic (poly)neuropathy; I12.9 Hypertensive chronic kidney disease with stage 1 through stage 4 chronic kidney disease, or unspecified chronic kidney disease; E11.22 Type 2 diabetes mellitus with diabetic chronic kidney disease; E87.6 Hypokalemia; D63.1 Anemia in chronic kidney disease; K31.84 Gastroparesis; Z79.82 Long term (current) use of aspirin; Z79.899 Other long term (current) drug therapy; Z90.49 Acquired absence of other specified parts of digestive tract
CPT/HCPCS: 36415; 70450; 71045; 80048; 80053; 80061; 80307; 81001; 82140; 82150; 82550; 82553; 82803; 82962; 83036; 83690; 83735; 84100; 84439; 84443; 84484; 85025; 85610; 85730; 87040; 87086; 93005; 93010; 94660; 96361; 96365; 96366; 96375; 96376; 99285; C1751; J0360; J1200; J1644; J1815; J2405; J2550; J2765; J3475; J3480; J3490; J7030; S0028; S0164

== ENCOUNTER 2019-01-24 05:53 | Emergency (ER) | payer MEDICARE ==
[2019-01-24] MEDS ORDERED: LABETALOL HCL INJ 20 MG/4 ML DISP.SYRIN IV ONE (06:26)
[2019-01-24] MEDS ORDERED: DIPHENHYDRAMINE HCL 50 MG/ML VIAL IV ONE (06:28)
[2019-01-24] MEDS ORDERED: NORMAL SALINE 1000 ML 1,000 ML IV ONE ×2 (06:28→09:37)
[2019-01-24] MEDS ORDERED: METOCLOPRAMIDE HCL INJ/PF 10 MG/2 ML SDV IV ONE (06:28)
--- NOTE | 2019-01-24 06:30 | ER Document Report ---
ED General - General Stated Complaint: VOMITING Time Seen by Provider: 01/24/19 06:06 Primary Care Provider: QUINCY ALEJO MD [Primary Care Provider] - Follow up as needed Mode of Arrival: Medic Information source: Patient, Relative, [facility] Records Notes: 73-year-old female with hypertension, hyperlipidemia, type 1 diabetes, gastroparesis, chronic kidney disease, recent admission for hypertensive urgency presents via EMS from home with her son and at the bedside with complaints of nausea, vomiting and upper abdominal pain. Family reports that nausea and vomiting began 2 days prior to arrival. Patient is also complaining of burning epigastric abdominal pain that started 2 days ago as well as associated chest pressure that started 2 days ago. Patient was recently dischar [facility] from [facility] on 01/15/2019 where she was found to be in hypertensive urgency. Per family patient has not been able to hold down her blood pressure medications since she began vomiting. TRAVEL OUTSIDE OF THE [place] IN LAST 30 DAYS: No - HPI Onset: Yesterday Onset/Duration: Gradual, Persistent Quality of pain: Burning Severity: Mild Associated symptoms: Chest pain, Nausea, Vomiting, Other. denies: Diarrhea, Fever, Headache, Shortness of breath Exacerbated by: Denies Relieved by: Denies Similar symptoms previously: Yes Recently seen / treated by doctor: Yes - Related Data Allergies/Adverse Reactions: codeine [Codeine] Allergy (Mild, Verified 12/12/17 20:07) meperidine HCl [From Demerol] Allergy (Mild, Verified 12/12/17 20:07) morphine Allergy (Verified 12/12/17 20:07) pregabalin [From Lyrica] Allergy (Verified 08/16/18 08:48) Past Medical History - General Information source: Patient, [facility] Records - Social History Smoking Status: Former Smoker Frequency of alcohol use: None Drug Abuse: None Lives with: Family, Spouse/Significant other Family History: Reviewed & Not Pertinent, CAD - Past Medical History Cardiac Medical History: Reports: Hx Coronary Artery Disease, Hx Hypercholesterolemia, Hx Hypertension Endocrine Medical History: Reports: Hx Diabetes Mellitus Type 1, Hx Diabetes Mellitus Type 2 Renal/ Medical History: Reports: Hx Ovarian Cysts. Denies: Hx Peritoneal Dialysis Malignancy Medical History: Reports: Hx Colorectal Cancer - Status post colon resection. Musculoskeletal Medical History: Reports Hx Arthritis Psychiatric Medical History: Denies: Hx Depression Past Surgical History: Reports: Hx Abdominal Surgery - colon resection, Hx C ardiac Catheterization - stents x 2, Hx Gynecologic Surgery, Hx Tubal Ligation, Other - Colon resection. Denies: Hx Hysterectomy - Immunizations Immunizations up to date: Yes Hx Diphtheria, Pertussis, Tetanus Vaccination: Yes Review of Systems - Review of Systems Notes: REVIEW OF SYSTEMS: CONSTITUTIONAL : Denies fever, chills, or sweats. Denies weight loss. EENT: Denies visual changes, eye pain. Denies sore throat, oral lesions, difficulty swallowing. CARDIOVASCULAR: Denies chest pain. Denies palpitations. Denies lower extremity edema. RESPIRATORY: Denies cough. Denies shortness of breath, wheezing. GASTROINTESTINAL: Denies abdominal pain or distention. Denies diarrhea. Denies blood in vomitus, stools, or per rectum. Denies black, tarry stools. Denies constipation. GENITOURINARY: Denies difficulty urinating, painful urination, frequency, blood in urine, or vaginal discharge. MUSCULOSKELETAL: Denies back or neck pain or stiffness. Denies joint pain or swelling. SKIN: Denies rash, lesions or sores. HEMATOLOGIC : Denies easy bruising or bleeding. LYMPHATIC: Denies swollen glands. NEUROLOGICAL: Denies confusion or altered mental status. Denies loss of consciousness. Denies dizziness or lightheadedness. Denies headache. Denies weakness or paralysis. Denies problems difficulty with ambulation, slurred speech. Denies sensory loss, numbness, or tingling. Denies seizures. PSYCHIATRIC: Denies anxiety or stress. Denies depression, suicidal ideation, or homicidal ideation. Denies visual or auditory hallucinations. Physical Exam - Vital signs Vitals: Temp Resp BP Pulse Ox 98.1 F 13 264/110 H 97 01/24/19 06:09 01/24/19 06:09 01/24/19 06:09 01/24/19 06:09 - Notes Notes: PHYSICAL EXAMINATION: GENERAL: Ill-appearing well-nourished and in no acute distress. HEAD: Atraumatic, normocephalic. EYES: Pupils equal round and reactive to light, extraocular movements intact, conjunctiva are normal. ENT: Nares patent, oropharynx clear without exudates. Dry mucous membranes. NECK: Normal range of motion, supple without lymphadenopathy LUNGS: Breath sounds clear to auscultation bilaterally and equal. No wheezes rales or rhonchi. HEART: Regular rate and rhythm without murmurs ABDOMEN: Soft, epigastric tenderness with palpation, nondistended abdomen. No guarding, no rebound. No masses appreciated. Female : deferred Musculoskeletal: Normal range of motion, no pitting or edema. No cyanosis. NEUROLOGICAL: Cranial nerves grossly intact. Normal speech, normal gait. Norm al sensory, motor exams PSYCH: Normal mood, normal affect. SKIN: Warm, Dry, normal turgor, no rashes or lesions noted. Course - Re-evaluation Re-evalutation: 01/24/19 13:02 Laboratory 01/24/19 01/24/19 01/24/19 06:35 06:35 06:35 WBC 12.8 H RBC 4.51 Hgb 11.1 L Hct 33.8 L MCV 75 L MCH 24.6 L MCHC 32.9 RDW 15.9 H Plt Count 369 Seg Neutrophils % 88.8 H Lymphocytes % 8.5 L Monocytes % 1.6 L Eosinophils % 0.1 Basophils % 1.0 Absolute Neutrophils 11.3 H Absolute Lymphocytes 1.1 Absolute Monocytes 0.2 Absolute Eosinophils 0.0 Absolute Basophils 0.1 Sodium 142.0 Potassium 3.7 Chloride 104 Carbon Dioxide 26 Anion Gap 12 BUN 29 H Creatinine 3.30 H Est GFR ( Amer) 17 L Est GFR (Non-Af Amer) 14 L Glucose 217 H POC Glucose Calcium 10.0 Magnesium 1.6 Total Bilirubin 0.5 Direct Bilirubin 0.4 Neonat Total Bilirubin Not Reportable Neonat Direct Bilirubin Not Reportable Neonat Indirect Bili Not Reportable AST 21 ALT 31 Alkaline Phosphatase 113 Creatine Kinase 57 Troponin I 0.034 Total Protein 7.4 Albumin 4.1 Lipase 120.7 Urine Color Urine Appearance Urine pH Ur Specific [place] Urine Protein Urine Glucose (UA) Urine Ketones Urine Blood Urine Nitrite Urine Bilirubin Urine Urobilinogen Ur Leukocyte Esterase Urine WBC (Auto) Urine RBC (Auto) Squamous Epi Cells Auto Urine Ascorbic Acid 01/24/19 01/24/19 06:45 07:20 WBC RBC Hgb Hct MCV MCH MCHC RDW Plt Count Seg Neutrophils % Lymphocytes % Monocytes % Eosinophils % Basophils % Absolute Neutrophils Absolute Lymphocytes Absolute Monocytes Absolute Eosinophils Absolute Basophils Sodium Potassium Chloride Carbon Dioxide Anion Gap BUN Creatinine Est GFR ( Amer) Est GFR (Non-Af Amer) Glucose POC Glucose 216 H Calcium Magnesium Total Bilirubin Direct Bilirubin Neonat Total Bilirubin Neonat Direct Bilirubin Neonat Indirect Bili AST ALT Alkaline Phosphatase Creatine Kinase Troponin I Total Protein Albumin Lipase Urine Color YELLOW Urine Appearance CLEAR Urine pH 8.0 Ur Specific [place] 1.013 Urine Protein >=500 H Urine Glucose (UA) 150 H Urine Ketones TRACE H Urine Blood NEGATIVE Urine Nitrite NEGATIVE Urine Bilirubin NEGATIVE Urine Urobilinogen NEGATIVE Ur Leukocyte Esterase NEGATIVE Urine WBC (Auto) 1 Urine RBC (Auto) 3 Squamous Epi Cells Auto <1 Urine Ascorbic Acid NEGATIVE Temp Pulse Resp BP Pulse Ox 98.1 F 19 232/93 H 97 01/24/19 06:09 01/24/19 12:31 01/24/19 12:31 01/24/19 12:31 Temp Pulse Resp BP Pulse Ox 98.1 F 19 232/93 H 97 01/24/19 06:09 01/24/19 12:31 01/24/19 12:31 01/24/19 12:31 73-year-old female with uncontrolled hypertension, hyperlipidemia, chronic kidney disease presents via EMS from home with complaint of nausea and vomiting that started last night. Per the family patient has not been able to take any of her blood pressure medication. Upon arrival blood pressure was 267/116 and this has improved to 222/93. Patient did receive clonidine, hydralazine during her ED course. She also received IV fluids, Zofran, Reglan and promethazine. Patient has been able to tolerate fluids during her ED course. On reevaluation she states that she is feeling better. is questioning why I am not trying to get the patient's blood pressure to normal. I explained to him that this could be more dangerous than letting her blood pressure right high as it always does when I have trended back for several months. Advised that the patient should go home and take her home medication for blood pressure and follow-up with Dr. Alejo her primary care physician in the next 2 to 3 days. Patient was evaluated and treated as appropriate for the patient's presenting symptoms and complaint, with consideration of any critical or life threatening conditions that may be associated with their obtained history and exam as noted above. All results were discussed with patient. Patient provided the opportunity to ask questions, and express concerns. Patient was educated on treatments based on their presumed diagnosis as noted above. At this time we will discharge the patient with return precautions and follow-up recommendations. Verbal discharge instructions given a the bedside. Medication warnings reviewed. Patient is in agreement with this plan and has verbalized understanding of return precautions. After careful consideration I feel that that patient can be safely discharged from the emergency department, they were advised to followup with a primary care physician in 2-3 days. Dictation on this chart was performed using voice recognition software and may result in unintended grammatical, spelling, syntax or errors. 01/24/19 13:04 - Vital Signs Vital signs: Temp Pulse Resp BP Pulse Ox 98.1 F 19 232/93 H 97 01/24/19 06:09 01/24/19 12:31 01/24/19 12:31 01/24/19 12:31 - Laboratory Result Diagrams: 01/24/19 06:35 01/24/19 06:35 Laboratory results interpreted by me: 01/24/19 01/24/19 01/24/19 06:35 06:35 06:45 WBC 12.8 H Hgb 11.1 L Hct 33.8 L MCV 75 L MCH 24.6 L RDW 15.9 H Seg Neutrophils % 88.8 H Lymphocytes % 8.5 L Monocytes % 1.6 L Absolute Neutrophils 11.3 H BUN 29 H Creatinine 3.30 H Est GFR ( Amer) 17 L Est GFR (Non-Af Amer) 14 L Glucose 217 H POC Glucose 216 H Urine Protein Urine Glucose (UA) Urine Ketones 01/24/19 07:20 WBC Hgb Hct MCV MCH RDW Seg Neutrophils % Lymphocytes % Monocytes % Absolute Neutrophils BUN Creatinine Est GFR ( Amer) Est GFR (Non-Af Amer) Glucose POC Glucose Urine Protein >=500 H Urine Glucose (UA) 150 H Urine Ketones TRACE H - Diagnostic Test Radiology reviewed: Image reviewed, Reports reviewed - EKG Interpretation by Me EKG shows normal: Sinus rhythm Rate: Normal Rhythm: NSR Voltage: Consistant with LVH When compared to previous EKG there are: No significant change Discharge - Discharge Clinical Impression: Dehydration, Uncontrolled hypertension, Chronic kidney disease, stage III (moderate) Nausea & vomiting Qualifiers: Vomiting type: unspecified Vomiting Intractability: non-intractable Qualified Code(s): R11.2 - Nausea with vomiting, unspecified Hypertension Qualifiers: Hypertension type: unspecified Qualified Code(s): I10 - Essential (primary) hypertension Type 2 diabetes mellitus Qualifiers: Diabetes mellitus termite helper insulin use: unspecified termite helper insulin use status Diabetes mellitus complication status: without complication Qualified Code(s): E11.9 - Type 2 diabetes mellitus without complications Condition: Good Disposition: HOME, SELF-CARE Instructions: Antinausea Medication ([facility]), Intravenous (IV) Fluids ([facility]), Viral Syndrome ([facility]), Vomiting ([facility]) Prescriptions: Ondansetron [Zofran Odt 4 mg Tablet] 1 - 2 tab PO Q4H PRN #15 tab.rapdis PRN Reason: For Nausea/Vomiting Forms: Elevated Blood Pressure Referrals: QUINCY ALEJO MD [Primary Care Provider] - Follow up in 3-5 days
[2019-01-24] MEDS ORDERED: FAMOTIDINE INJ/PF 20 MG/2 ML SDV IV ONE (06:31)
[2019-01-24 06:59] LABS: ABSOLUTE BASOPHILS # (AUTO) 0.1 10^3/uL (0.0-0.2); ABSOLUTE LYMPHOCYTES (AUTO) 1.1 10^3/uL (0.5-4.7); ABSOLUTE MONOCYTES (AUTO) 0.2 10^3/uL (0.1-1.4); ABSOLUTE NEUT (AUTO) 11.3 10^3/uL (1.7-8.2); EOSINOPHILS % (AUTO) 0.1 % (0-6); HEMATOCRIT 33.8 % (36.0-47.0); HEMOGLOBIN 11.1 g/dL (12.0-15.5); LYMPHOCYTES % (AUTO) 8.5 % (13-45); MEAN CORPUSCULAR HEMOGLOBIN 24.6 pg (27.0-33.4); MEAN CORPUSCULAR HGB CONC 32.9 g/dL (32.0-36.0); MEAN CORPUSCULAR VOLUME 75 fl (80-97); MONOCYTES % (AUTO) 1.6 % (3-13); PLATELET COUNT 369 10^3/uL (150-450); RED BLOOD COUNT 4.51 10^6/uL (3.72-5.28); RED CELL DISTRIBUTION WIDTH 15.9 % (11.5-14.0); SEGMENTED NEUTROPHILS % (AUTO) 88.8 % (42-78); TOTAL CELLS COUNTED % (AUTO) 100 %; WHITE BLOOD COUNT 12.8 10^3/uL (4.0-10.5)
[2019-01-24 07:05] LABS: ALANINE AMINOTRANSFERASE 31 U/L (9-52); ALBUMIN 4.1 g/dL (3.5-5.0); ALKALINE PHOSPHATASE 113 U/L (38-126); ANION GAP 12 (5-19); ASPARTATE AMINO TRANSFERASE 21 U/L (14-36); BILIRUBIN,DIRECT 0.4 mg/dL (0.0-0.4); BILIRUBIN,TOTAL 0.5 mg/dL (0.2-1.3); BLOOD UREA NITROGEN 29 mg/dL (7-20); CARBON DIOXIDE 26 mmol/L (22-30); CHLORIDE 104 mmol/L (98-107); CREATINE KINASE 57 U/L (30-135); GLUCOSE 217 mg/dL (75-110); LIPASE 120.7 U/L (23-300); POTASSIUM 3.7 mmol/L (3.6-5.0); TOTAL PROTEIN 7.4 g/dL (6.3-8.2)
[2019-01-24] MEDS ORDERED: ONDANSETRON HCL INJ/PF 4 MG/2 ML SDV IV ONE (07:29)
[2019-01-24 08:00] LABS: APPEARANCE,URINE CLEAR; BILIRUBIN,URINE NEGATIVE (NEGATIVE); COLOR,URINE YELLOW; GLUCOSE, URINE 150 mg/dL (NEGATIVE); KETONES,URINE TRACE mg/dL (NEGATIVE); LEUKOCYTE ESTERASE,URINE NEGATIVE (NEGATIVE); NITRITE,URINE NEGATIVE (NEGATIVE); PROTEIN,URINE >=500 mg/dL (NEGATIVE); URINE SPECIFIC GRAVITY 1.013; UROBILINOGEN,URINE NEGATIVE mg/dL (<2.0)
[2019-01-24] MEDS ORDERED: CLONIDINE HCL 0.2 MG TABLET PO ONE (08:32)
[2019-01-24] MEDS ORDERED: CLONIDINE HCL 0.2 MG TABLET ONE (08:36)
[2019-01-24] MEDS ORDERED: PROMETHAZINE HCL INJ 25 MG/1 ML VIAL IV ONE (09:37)
[2019-01-24] MEDS ORDERED: HYDRALAZINE HCL INJ/PF 20 MG/1 ML SDV IV ONE (09:37)
[2019-01-24] MEDS ORDERED: ONDANSETRON ODT 4 MG TAB (6 TAB/ER DISP) PO PRN (12:23)
[2019-01-24 13:07] VITALS: BP 229/92
--- NOTE | 2019-01-24 18:52 | EKG REPORT ---
SEVERITY:- ABNORMAL ECG - SINUS RHYTHM PROBABLE LEFT ATRIAL ABNORMALITY IVCD, CONSIDER ATYPICAL RBBB LVH WITH IVCD, LAD AND SECONDARY REPOL ABNRM : Confirmed by: Kezia Mensah 24-Jan-2019 18:51:31
== END 2019-01-24 13:25 | disposition home or self-care (01) ==
LOC: ER 05:53
DX: E86.0 Dehydration (principal); R11.2 Nausea with vomiting, unspecified; R07.9 Chest pain, unspecified; E11.22 Type 2 diabetes mellitus with diabetic chronic kidney disease; I12.9 Hypertensive chronic kidney disease with stage 1 through stage 4 chronic kidney disease, or unspecified chronic kidney disease; N18.3 Chronic kidney disease, stage 3 (moderate); E78.5 Hyperlipidemia, unspecified; Z88.6 Allergy status to analgesic agent
CPT/HCPCS: 93005; 99284; 96361; 51701; 96374; 96375; 36415; 82962; 82550; 83690; 83735; 85025; 80053; 81001; 84484; 93010; A9270 ×2; J1200; J0360; J2765; J2550; J2405; J7030; S0028

== ENCOUNTER 2019-03-09 07:34 | Inpatient (IN) | payer MEDICARE ==
--- NOTE | 2019-03-09 07:44 | ER Document Report ---
ED General - General Stated Complaint: NAUSEA/VOMITING Time Seen by Provider: 03/09/19 07:44 Notes: Patient is a 73-year-old female with diabetes, gastroparesis, hypertension, CHF that presents to the emergency department for chief complaint of nausea, vomiting or diarrhea. Patient has been feeling well for the past few days, started having significant nausea and vomiting particularly this morning, her blood pressure is also been running high at home. She denies any numbness, weakness or tingling in any extremity, denies any slurred speech, but she just felt very weak from the vomiting and very uncomfortable. She has had some upper abdominal pain associated with it, but no lower pain. Denies any dysuria, hematuria, fevers, chills, night sweats. Past Medical History: Diabetes, hypertension, hyperlipidemia, CHF, history of CVA, gastroparesis Past Surgical History: Colon resection, for colorectal carcinoma, 2 ligation, PCI with stenting x2 Social History: Lives at home with , denies tobacco, alcohol or drug use currently. Family History: Reviewed and noncontributory for presenting illness Allergies: Reviewed, see documented allergy list. REVIEW OF SYSTEMS: Other than noted above, the 12 point review of systems was reviewed with the patient and were negative, all pertinent findings are included in the HPI. PHYSICAL EXAMINATION: Vital signs reviewed, nursing noted reviewed. GENERAL: Patient appears uncomfortable on exam, complaining of nausea HEAD: Atraumatic, normocephalic. EYES: Eyes appear normal, extraocular movements intact, sclera anicteric, conjunctiva are normal. ENT: nares patent, oropharynx clear without exudates. Moist mucous membranes. NECK: Normal range of motion, supple without lymphadenopathy LUNGS: Breath sounds clear to auscultation bilaterally and equal. No wheezes rales or rhonchi. HEART: Regular rate and rhythm without murmurs ABDOMEN: Soft, mild epigastric tenderness to palpation, normoactive bowel sounds. No rebound, guarding, or rigidity. No masses appreciated. EXTREMITIES: Nontender, good range of motion, bilateral lower extremity edema, 1+ NEUROLOGICAL: No focal neurological deficits. Moves all extremities spontaneously Motor and sensory grossly intact on exam. PSYCH: Flat affect, but answering questions appropriately. SKIN: Warm, Dry, normal turgor, no rashes or lesions noted on exposed skin TRAVEL OUTSIDE OF THE [place] IN LAST 30 DAYS: No - Related Data Allergies/Adverse Reactions: codeine [Codeine] Allergy (Mild, Verified 12/12/17 20:07) meperidine HCl [From Demerol] Allergy (Mild, Verified 12/12/17 20:07) morphine Allergy (Verified 12/12/17 20:07) pregabalin [From Lyrica] Allergy (Verified 08/16/18 08:48) Past Medical History - Social History Smoking Status: Never Smoker Family History: Reviewed & Not Pertinent, CAD - Past Medical History Cardiac Medical History: Reports: Hx Coronary Artery Disease, Hx Hypercholesterolemia, Hx Hypertension Endocrine Medical History: Reports: Hx Diabetes Mellitus Type 1, Hx Diabetes Mellitus Type 2 Renal/ Medical History: Reports: Hx Ovarian Cysts. Denies: Hx Peritoneal Dialysis Malignancy Medical History: Reports: Hx Colorectal Cancer - Status post colon resection. Musculoskeletal Medical History: Reports Hx Arthritis Psychiatric Medical History: Denies: Hx Depression Past Surgical History: Reports: Hx Abdominal Surgery - colon resection, Hx Cardiac Catheterization - stents x 2, Hx Gynecologic Surgery, Hx Tubal Ligation, Other - Colon resection. Denies: Hx Hysterectomy - Immunizations Immunizations up to date: Yes Hx Diphtheria, Pertussis, Tetanus Vaccination: Yes Physical Exam - Vital signs Vitals: Pulse Ox 92 03/09/19 07:38 Course - Re-evaluation Re-evalutation: Patient seen and examined vital signs reviewed. Laboratory data and imaging were ordered as appropriate for the patient's presenting symptoms and complaint, with consideration of any critical or life threatening conditions that may be associated with their obtained history and exam as noted above. Patient was treated with IV fluids, Zofran, Reglan and IV hydralazine for her blood pressure she was noted to be very hypertensive, with a nausea and vomiting. Results were reviewed when available and demonstrated baseline blood work for the patient, creatinine at her baseline which is around 3, her troponin was slightly elevated, which appears to be baseline for this patient, likely lack of renal clearance. She was not complaining of any chest pain. Her EKG was unchanged from prior. The patient was re-evaluated and was still hypertensive, at this point I dis cussed the case with her primary care physician, Dr. Hatch, who wanted the patient placed on Cardene infusion, given that she has had a history of stroke in the past, patient was started on Cardene, and titrated to effect, her blood pressure did improve with this, will admit her for hypertensive emergency. Evaluation was most consistent with hypertensive emergency, intractable nausea and vomiting. Results were discussed with the patient at this point after careful consideration I feel that that patient should be admitted to the hospital. This was discussed with the patient that it is in the best interest for their care to be admitted for further evaluation and management. Patient agreed with this plan of care. A call was placed to the admitted physician, Dr. Hatch who graciously accepted the patient onto their service. *Note is created using voice recognition software and may contain spelling, syntax or grammatical errors. Laboratory 03/09/19 03/09/19 03/09/19 08:14 08:14 08:14 WBC 10.0 RBC 4.12 Hgb 10.2 L Hct 30.5 L MCV 74 L MCH 24.6 L MCHC 33.3 RDW 15.7 H Plt Count 281 Seg Neutrophils % 86.7 H Lymphocytes % 7.5 L Monocytes % 4.1 Eosinophils % 0.4 Basophils % 1.3 Absolute Neutrophils 8.7 H Absolute Lymphocytes 0.8 Absolute Monocytes 0.4 Absolute Eosinophils 0.0 Absolute Basophils 0.1 Sodium 141.4 Potassium 4.2 Chloride 108 H Carbon Dioxide 24 Anion Gap 9 BUN 34 H Creatinine 3.10 H Est GFR ( Amer) 18 L Est GFR (Non-Af Amer) 15 L Glucose 211 H POC Glucose Calcium 9.3 Phosphorus Magnesium Total Bilirubin 0.6 Direct Bilirubin 0.4 Neonat Total Bilirubin Not Reportable Neonat Direct Bilirubin Not Reportable Neonat Indirect Bili Not Reportable AST 22 ALT 24 Alkaline Phosphatase 102 Troponin I 0.084 NT-Pro-B Natriuret Pep Total Protein 7.0 Albumin 3.7 Amylase Lipase TSH Free T4 Urine Color Urine Appearance Urine pH Ur Specific [place] Urine Protein Urine Glucose (UA) Urine Ketones Urine Blood Urine Nitrite Urine Bilirubin Urine Urobilinogen Ur Leukocyte Esterase Urine WBC (Auto) Urine RBC (Auto) U Hyaline Cast (Auto) Squamous Epi Cells Auto Amorphous Sediment Auto Urine Mucus (Auto) Urine Ascorbic Acid 03/09/19 03/09/19 03/09/19 08:14 08:14 08:14 WBC RBC Hgb Hct MCV MCH MCHC RDW Plt Count Seg Neutrophils % Lymphocytes % Monocytes % Eosinophils % Basophils % Absolute Neutrophils Absolute Lymphocytes Absolute Monocytes Absolute Eosinophils Absolute Basophils Sodium Potassium Chloride Carbon Dioxide Anion Gap BUN Creatinine Est GFR ( Amer) Est GFR (Non-Af Amer) Glucose POC Glucose Calcium Phosphorus 4.3 Magnesium 1.9 Total Bilirubin Direct Bilirubin Neonat Total Bilirubin Neonat Direct Bilirubin Neonat Indirect Bili AST ALT Alkaline Phosphatase Troponin I NT-Pro-B Natriuret Pep 59942 H Total Protein Albumin Amylase 88 Lipase 152.9 TSH 2.76 Free T4 1.51 Urine Color Urine Appearance Urine pH Ur Specific [place] Urine Protein Urine Glucose (UA) Urine Ketones Urine Blood Urine Nitrite Urine Bilirubin Urine Urobilinogen Ur Leukocyte Esterase Urine WBC (Auto) Urine RBC (Auto) U Hyaline Cast (Auto) Squamous Epi Cells Auto Amorphous Sediment Auto Urine Mucus (Auto) Urine Ascorbic Acid 03/09/19 03/09/19 08:15 09:06 WBC RBC Hgb Hct MCV MCH MCHC RDW Plt Count Seg Neutrophils % Lymphocytes % Monocytes % Eosinophils % Basophils % Absolute Neutrophils Absolute Lymphocytes Absolute Monocytes Absolute Eosinophils Absolute Basophils Sodium Potassium Chloride Carbon Dioxide Anion Gap BUN Creatinine Est GFR ( Amer) Est GFR (Non-Af Amer) Glucose POC Glucose 223 H Calcium Phosphorus Magnesium Total Bilirubin Direct Bilirubin Neonat Total Bilirubin Neonat Direct Bilirubin Neonat Indirect Bili AST ALT Alkaline Phosphatase Troponin I NT-Pro-B Natriuret Pep Total Protein Albumin Amylase Lipase TSH Free T4 Urine Color YELLOW Urine Appearance SLIGHTLY-CLOUDY Urine pH 6.0 Ur Specific [place] 1.015 Urine Protein >=500 H Urine Glucose (UA) >=500 H Urine Ketones 20 H Urine Blood NEGATIVE Urine Nitrite NEGATIVE Urine Bilirubin NEGATIVE Urine Urobilinogen NEGATIVE Ur Leukocyte Esterase NEGATIVE Urine WBC (Auto) 6 Urine RBC (Auto) 7 U Hyaline Cast (Auto) 1 Squamous Epi Cells Auto 10 Amorphous Sediment Auto TRACE Urine Mucus (Auto) RARE Urine Ascorbic Acid NEGATIVE Chest X-Ray 03/09/19 07:51 IMPRESSION: Stable mild to moderate cardiomegaly - Vital Signs Vital signs: Temp Pulse Resp BP Pulse Ox 96.4 F L 82 12 141/73 H 96 03/10/19 12:00 03/10/19 12:00 03/10/19 12:00 03/10/19 12:00 03/10/19 12:00 - Laboratory Result Diagrams: 03/10/19 07:17 03/10/19 07:17 Laboratory results interpreted by me: 03/09/19 03/09/1919 08:14 08:14 08:14 Hgb 10.2 L Hct 30.5 L MCV 74 L MCH 24.6 L RDW 15.7 H Seg Neutrophils % 86.7 H Lymphocytes % 7.5 L Absolute Neutrophils 8.7 H Chloride 108 H BUN 34 H Creatinine 3.10 H Est GFR ( Amer) 18 L Est GFR (Non-Af Amer) 15 L Glucose 211 H POC Glucose NT-Pro-B Natriuret Pep 74198 H Urine Protein Urine Glucose (UA) Urine Ketones 03/09/19 03/09/19 08:15 09:06 Hgb Hct MCV MCH RDW Seg Neutrophils % Lymphocytes % Absolute Neutrophils Chloride BUN Creatinine Est GFR ( Amer) Est GFR (Non-Af Amer) Glucose POC Glucose 223 H NT-Pro-B Natriuret Pep Urine Protein >=500 H Urine Glucose (UA) >=500 H Urine Ketones 20 H - EKG Interpretation by Me Additional EKG results interpreted by me: EKG demonstrates sinus rhythm with a ventricular rate of 94 bpm, left axis deviation, QTC prolonged at 516 ms, noted to be voltage criteria for LVH, and poor R wave progression, this is compared with a prior EKG from 01/24/2019, without significant change. Critical Care Note - Critical Care Note Total time excluding time spent on procedures (mins): 35 Comments: Critical care time 35 minutes exclusive from separate billable procedures for a patient requiring complex medical decision making, and high potential for clinical deterioration. In a patient with symptomatic hypertension and hypertensive emergency, requiring Cardene infusion, multiple doses of IV antihypertensive medications. Time spent obtaining history from patient or surrogate, discussions with consultants, development of treatment plan with patient or surrogate, evaluation of patient's response to treatment, examination of patient, ordering and performing treatments and interventions, ordering and review of laboratory studies, re-evaluation of patient's condition, ordering and review of radiographic studies and review of old charts Discharge - Discharge Clinical Impression: Hypertensive emergency, Chronic kidney disease, stage IV (severe) Nausea and vomiting Qualifiers: Vomiting type: unspecified Vomiting Intractability: intractable Qualified Code(s): R11.2 - Nausea with vomiting, unspecified Condition: Stable Disposition: ADMITTED INPATIENT Admitting Provider: [facility] Unit Admitted: [facility]
[2019-03-09] MEDS ORDERED: HYDRALAZINE HCL INJ/PF 20 MG/1 ML SDV IV ONE ×2 (07:52→09:18)
[2019-03-09] MEDS ORDERED: ONDANSETRON HCL INJ/PF 4 MG/2 ML SDV IV ONE (07:52)
[2019-03-09 08:28] LABS: ABSOLUTE BASOPHILS # (AUTO) 0.1 10^3/uL (0.0-0.2); ABSOLUTE LYMPHOCYTES (AUTO) 0.8 10^3/uL (0.5-4.7); ABSOLUTE MONOCYTES (AUTO) 0.4 10^3/uL (0.1-1.4); ABSOLUTE NEUT (AUTO) 8.7 10^3/uL (1.7-8.2); BASOPHILS % (AUTO) 1.3 % (0-2); EOSINOPHILS % (AUTO) 0.4 % (0-6); HEMATOCRIT 30.5 % (36.0-47.0); HEMOGLOBIN 10.2 g/dL (12.0-15.5); LYMPHOCYTES % (AUTO) 7.5 % (13-45); MEAN CORPUSCULAR HEMOGLOBIN 24.6 pg (27.0-33.4); MEAN CORPUSCULAR HGB CONC 33.3 g/dL (32.0-36.0); MEAN CORPUSCULAR VOLUME 74 fl (80-97); MONOCYTES % (AUTO) 4.1 % (3-13); PLATELET COUNT 281 10^3/uL (150-450); RED BLOOD COUNT 4.12 10^6/uL (3.72-5.28); RED CELL DISTRIBUTION WIDTH 15.7 % (11.5-14.0); SEGMENTED NEUTROPHILS % (AUTO) 86.7 % (42-78); TOTAL CELLS COUNTED % (AUTO) 100 %
--- NOTE | 2019-03-09 08:41 | RADIOLOGY REPORT (SQ) ---
EXAM DESCRIPTION: CHEST SINGLE VIEW COMPLETED DATE/TIME: 03/09/2019 8:04 am REASON FOR STUDY: chest tightness COMPARISON: AP chest 01/21/2019 EXAM PARAMETERS: NUMBER OF VIEWS: One view. TECHNIQUE: Single frontal radiographic view of the chest acquired. RADIATION DOSE: NA LIMITATIONS: None. FINDINGS: LUNGS AND PLEURA: No opacities, masses or pneumothorax. No pleural effusion. MEDIASTINUM AND HILAR STRUCTURES: No masses. Contour normal. HEART AND VASCULAR STRUCTURES: Stable mild to moderate cardiomegaly BONES: No acute findings. HARDWARE: None in the chest. OTHER: No other significant finding. IMPRESSION: Stable mild to moderate cardiomegaly TECHNICAL DOCUMENTATION: JOB ID: [id number] [employer]- All Rights Reserved Reading location - IP/workstation name: [email or web address]
[2019-03-09 08:43] LABS: ALANINE AMINOTRANSFERASE 24 U/L (9-52); ALBUMIN 3.7 g/dL (3.5-5.0); ALKALINE PHOSPHATASE 102 U/L (38-126); ANION GAP 9 (5-19); ASPARTATE AMINO TRANSFERASE 22 U/L (14-36); BILIRUBIN,DIRECT 0.4 mg/dL (0.0-0.4); BILIRUBIN,TOTAL 0.6 mg/dL (0.2-1.3); BLOOD UREA NITROGEN 34 mg/dL (7-20); CALCIUM 9.3 mg/dL (8.4-10.2); CARBON DIOXIDE 24 mmol/L (22-30); CHLORIDE 108 mmol/L (98-107); GLUCOSE 211 mg/dL (75-110); POTASSIUM 4.2 mmol/L (3.6-5.0); SODIUM 141.4 mmol/L (137-145)
[2019-03-09] MEDS ORDERED: AMLODIPINE BESYLATE 10 MG TABLET PO ONE (09:18)
[2019-03-09 09:38] LABS: AMORPHOUS SEDIMENT,URINE TRACE /HPF; APPEARANCE,URINE SLIGHTLY-CLOUDY; BILIRUBIN,URINE NEGATIVE (NEGATIVE); COLOR,URINE YELLOW; GLUCOSE, URINE >=500 mg/dL (NEGATIVE); KETONES,URINE 20 mg/dL (NEGATIVE); LEUKOCYTE ESTERASE,URINE NEGATIVE (NEGATIVE); NITRITE,URINE NEGATIVE (NEGATIVE); PROTEIN,URINE >=500 mg/dL (NEGATIVE); URINE SPECIFIC GRAVITY 1.015; UROBILINOGEN,URINE NEGATIVE mg/dL (<2.0)
[2019-03-09] MEDS ORDERED: METOCLOPRAMIDE HCL INJ/PF 10 MG/2 ML SDV IV ONE (10:09)
--- NOTE | 2019-03-09 10:16 | EKG REPORT ---
SEVERITY:- ABNORMAL ECG - SINUS RHYTHM LVH WITH IVCD, LAD AND SECONDARY REPOL ABNRM LAFB CONSIDER OLD ANTERIOR MD : Confirmed by: Tuan Hirsch MD 09-Mar-2019 10:16:11
[2019-03-09] MEDS ORDERED: NICARDIPINE HCL RTU, ISO-OS 20 MG/200 ML RTUINJ IV PRN (11:37)
[2019-03-09 13:47] LABS: LIPASE 152.9 U/L (23-300); PHOSPHORUS 4.3 mg/dL (2.5-4.5)
[2019-03-09 14:05] LABS: FREE T4 (FREE THYROXINE) 1.51 ng/dL (0.78-2.19)
[2019-03-09 14:19] LABS: THYROID STIMULATING HORMONE 2.76 uIU/mL (0.47-4.68)
[2019-03-09 14:51] LABS: INTERNATIONAL RATION (INR) 1.08; PROTHROMBIN TIME 14.6 SEC (11.4-15.4)
[2019-03-09 14:52] LABS: PARTIAL THROMBOPLASTIN TIME 30.4 SEC (23.5-35.8)
[2019-03-09 15:09] LABS: CREATINE KINASE MB 1.74 ng/mL (<4.55); TROPONIN I 0.083 ng/mL
[2019-03-09] MEDS ORDERED: ONDANSETRON HCL INJ/PF 4 MG/2 ML SDV ONE (15:19)
[2019-03-09] MEDS ORDERED: ONDANSETRON HCL INJ/PF 4 MG/2 ML SDV IV PRN (15:21)
[2019-03-09] MEDS: NICARDIPINE HCL RTU, ISO-OS 20 MG/200 ML RTUINJ IV PRN ×5 (16:17→22:33)
[2019-03-09] MEDS: HEPARIN SOD (PORCINE) 5,000 UNIT/ML 1 ML SYRINGE SUBCUT SCH ×2 (16:17→21:35)
[2019-03-09 16:58] LABS: URINE AMPHETAMINES SCREEN NEGATIVE; URINE BARBITURATES SCREEN NEGATIVE; URINE BENZODIAZEPINES SCREEN NEGATIVE; URINE COCAINE SCREEN NEGATIVE; URINE MARIJUANA (THC) SCREEN NEGATIVE; URINE METHADONE SCREEN NEGATIVE; URINE PHENCYCLIDINE SCREEN NEGATIVE
[2019-03-09] MEDS ORDERED: DEXTROSE 50%-WATER SYRINGE 12.5 GM/25 ML DOSE IV PRN (18:00)
[2019-03-09] MEDS ORDERED: DEXTROSE 40% GEL 15 GM TUBE X 2 PO PRN (18:00)
[2019-03-09] MEDS ORDERED: DEXTROSE 50%-WATER SYRINGE 25 GM/50 ML DOSE IV PRN (18:00)
[2019-03-09] MEDS ORDERED: GLUCAGON,HUMAN RECOMB 1 MG INJ IM PRN (18:00)
[2019-03-09] MEDS ORDERED: DEXTROSE 40% GEL 15 GM TUBE PO PRN (18:00)
[2019-03-09] MEDS ORDERED: INSULIN LISPRO 100 UNIT/ML 3 ML VIAL ONE (18:01)
--- NOTE | 2019-03-09 18:07 | PDOC H&P ---
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 Patient has presented in this fashion multiple times she had apparently recently had upper endoscopy that was done in [place], [place] she told me that they found ulcers and she was prescribed Nexium a PPI, this is ongoing problem for this patient. She has a history of gastroparesis she will typically present with duration of vomiting associated with severely elevated blood pressure, the resistant hypertension is partly from a CKD stage IV, she has difficult to contr ol blood pressure despite taking multiple medications Past Medical History Cardiac Medical History: Reports: Coronary Artery Disease, Hyperlipidema, Hypertension Endocrine Medical History: Reports: Diabetes Mellitus Type 2 Renal/ Medical History: Reports: Chronic Kidney Disease, Other - CKD stage IV Musculoskeltal Medical History: Reports: Arthritis Past Surgical History Past Surgical History: Reports: Cardiac Catheterization - stents x 2, Tubal Ligation, Other - Colon resection Social History Smoking Status: Never Smoker Frequency of Alcohol Use: None Hx Recreational Drug Use: No Drugs: None Hx Prescription Drug Abuse: No Family History Family History: Reviewed & Not Pertinent, CAD Parental Family History Reviewed: Yes Children Family History Reviewed: Yes Sibling(s) Family History Reviewed.: Yes Medication/Allergy Home Medications: Aspirin [Adult Low Dose Aspirin EC] 81 mg PO DAILY 01/09/19 Atorvastatin Calcium [Lipitor 80 mg Tablet] 80 mg PO QHS 01/09/19 Clonidine HCl [Catapres 0.3 mg Tablet] 0.3 mg PO Q8 01/09/19 Ergocalciferol (Vitamin D2) [Drisdol 50,000 unit (1.25MG) Capsule] 50,000 unit PO FR@1000 01/09/19 Furosemide [Lasix 40 mg Tablet] 40 mg PO BID 01/09/19 Isosorbide Mononitrate [Imdur 30 mg Tablet.er] 30 mg PO DAILY 01/09/19 Metoprolol Tartrate [Lopressor 100 mg Tablet] 100 mg PO Q12 01/09/19 Valsartan/Hydrochlorothiazide [Diovan Hct 320-25 mg Tablet] 1 tab PO DAILY 01/09/19 Clonidine [Catapres-Tts 1 (0.1 mg/24 Hr) Transderm Patch] 1 each TD Q7D 03/09/19 Allergies/Adverse Reactions: codeine [Codeine] Allergy (Mild, Verified 12/12/17 20:07) meperidine HCl [From Demerol] Allergy (Mild, Verified 12/12/17 20:07) morphine Allergy (Verified 12/12/17 20:07) pregabalin [From Lyrica] Allergy (Verified 08/16/18 08:48) Review of Systems Constitutional: ABSENT: chills, fever(s), headache(s), weight gain, weight loss Eyes: ABSENT: visual disturbances Ears: ABSENT: hearing changes Cardiovascular: ABSENT: chest pain, dyspnea on exertion, edema, orthropnea, palpitations Respiratory: ABSENT: cough, hemoptysis Gastrointestinal: PRESENT: nausea, vomiting Genitourinary: ABSENT: dysuria, hematuria Musculoskeletal: ABSENT: joint swelling Integumentary: ABSENT: rash, wounds Neurological: ABSENT: abnormal gait, abnormal speech, confusion, dizziness, focal weakness, syncope Psychiatric: ABSENT: anxiety, depression, homidical ideation, suicidal ideation Endocrine: ABSENT: cold intolerance, heat intolerance, menstrual abnormalities, polydipsia, polyuria Hematologic/Lymphatic: ABSENT: easy bleeding, easy bruising, lymphadenopathy Physical Exam Vital Signs: Temp Pulse Resp BP Pulse Ox 99.0 F 123 H 15 207/85 H 96 03/09/19 14:20 03/09/19 15:40 03/09/19 14:20 03/09/19 13:41 03/09/19 14:20 Intake & Output 03/08/19 03/09/19 03/10/19 06:59 06:59 06:59 Intake Total 240 Balance 240 Weight 86.9 kg General appearance: PRESENT: mild distress Head exam: PRESENT: atraumatic, normocephalic Eye exam: PRESENT: conjunctiva pink, EOMI, PERRLA Ear exam: PRESENT: normal external ear exam Mouth exam: PRESENT: moist, tongue midline Neck exam: PRESENT: full ROM Respiratory exam: PRESENT: clear to auscultation jeanette Cardiovascular exam: PRESENT: RRR, +S1, +S2 Pulses: PRESENT: normal dorsalis pedis pul, +2 pedal pulses bilateral Vascular exam: PRESENT: normal capillary refill GI/Abdominal exam: PRESENT: normal bowel sounds, soft Rectal exam: PRESENT: deferred Neurological exam: PRESENT: alert, awake, oriented to person, oriented to place, oriented to time, oriented to situation, CN II-XII grossly intact Psychiatric exam: PRESENT: appropriate affect, normal mood Skin exam: PRESENT: dry, intact, warm Results Laboratory Results: 03/09/19 08:14 03/09/19 08:14 03/09/19 03/09/19 03/09/19 08:14 08:14 08:14 WBC 10.0 RBC 4.12 Hgb 10.2 L Hct 30.5 L MCV 74 L MCH 24.6 L MCHC 33.3 RDW 15.7 H Plt Count 281 Seg Neutrophils % 86.7 H Lymphocytes % 7.5 L Monocytes % 4.1 Eosinophils % 0.4 Basophils % 1.3 Absolute Neutrophils 8.7 H Absolute Lymphocytes 0.8 Absolute Monocytes 0.4 Absolute Eosinophils 0.0 Absolute Basophils 0.1 Sodium 141.4 Potassium 4.2 Chloride 108 H Carbon Dioxide 24 Anion Gap 9 BUN 34 H Creatinine 3.10 H Est GFR ( Amer) 18 L Est GFR (Non-Af Amer) 15 L Glucose 211 H Calcium 9.3 Phosphorus 4.3 Magnesium 1.9 Total Bilirubin 0.6 AST 22 ALT 24 Alkaline Phosphatase 102 Ammonia Total Protein 7.0 Albumin 3.7 Amylase 88 Lipase 152.9 TSH Free T4 Urine Color Urine Appearance Urine pH Ur Specific [place] Urine Protein Urine Glucose (UA) Urine Ketones Urine Blood Urine Nitrite Ur Leukocyte Esterase Urine WBC (Auto) Urine RBC (Auto) 03/09/19 03/09/19 03/09/19 08:14 09:06 14:20 WBC RBC Hgb Hct MCV MCH MCHC RDW Plt Count Seg Neutrophils % Lymphocytes % Monocytes % Eosinophils % Basophils % Absolute Neutrophils Absolute Lymphocytes Absolute Monocytes Absolute Eosinophils Absolute Basophils Sodium Potassium Chloride Carbon Dioxide Anion Gap BUN Creatinine Est GFR ( Amer) Est GFR (Non-Af Amer) Glucose Calcium Phosphorus Magnesium Total Bilirubin AST ALT Alkaline Phosphatase Ammonia < 8.7 L Total Protein Albumin Amylase Lipase TSH 2.76 Free T4 1.51 Urine Color YELLOW Urine Appearance SLIGHTLY-CLOUDY Urine pH 6.0 Ur Specific [place] 1.015 Urine Protein >=500 H Urine Glucose (UA) >=500 H Urine Ketones 20 H Urine Blood NEGATIVE Urine Nitrite NEGATIVE Ur Leukocyte Esterase NEGATIVE Urine WBC (Auto) 6 Urine RBC (Auto) 7 03/09/19 03/09/19 03/09/19 08:14 08:14 14:20 Creatine Kinase 52 CK-MB (CK-2) Troponin I 0.084 NT-Pro-B Natriuret Pep 13850 H 03/09/19 14:20 Creatine Kinase CK-MB (CK-2) 1.74 Troponin I 0.083 NT-Pro-B Natriuret Pep Impressions: Chest X-Ray 03/09/19 07:51 IMPRESSION: Stable mild to moderate cardiomegaly Assessment & Plan - Diagnosis (1) Hypertensive emergency Is this a current diagnosis for this admission?: Yes Plan: She has a hypertensive emergency blood pressure more than 200 systolic with a background of CKD stage IV due to diabetes nephropathy, Patient to be admitted to ICU, start nicardipine infusion titrated to get blood pressure to 140 systolic (2) CKD (chronic kidney disease) stage 4, GFR 15-29 ml/min Is this a current diagnosis for this admission?: Yes Plan: She has CKD stage IV due to nephropathy, the resistant hypertension is partly from the CKD (3) CKD stage 4 due to type 2 diabetes mellitus Is this a current diagnosis for this admission?: Yes (4) Intractable vomiting Qualifiers: Vomiting type: unspecified Nausea presence: with nausea Qualified Code(s): R11.2 - Nausea with vomiting, unspecified Is this a current diagnosis for this admission?: Yes (5) Gastroparesis Is this a current diagnosis for this admission?: Yes Plan: She has diabetes gastroparesis, continue supportive care
[2019-03-09] MEDS ORDERED: PROMETHAZINE HCL INJ 25 MG/1 ML VIAL IV PRN (20:19)
[2019-03-09 20:58] LABS: CREATINE KINASE MB 2.19 ng/mL (<4.55)
[2019-03-09 21:02] LABS: TROPONIN I 0.133 ng/mL
[2019-03-09] MEDS ORDERED: VALSARTAN 160 MG TABLET PO ONE (21:15)
[2019-03-09] MEDS ORDERED: CLONIDINE 0.1 MG/24 HR PATCH.TDWK TD ONE (21:15)
[2019-03-09] MEDS ORDERED: HYDROCHLOROTHIAZIDE 25 MG TABLET PO ONE (21:15)
[2019-03-09] MEDS: CLONIDINE HCL 0.1 MG TABLET PO SCH (21:41)
[2019-03-09] MEDS: FUROSEMIDE 40 MG TABLET PO SCH (21:42)
[2019-03-09] MEDS: INSULIN LISPRO 100 UNIT/ML 3 ML VIAL SUBCUT SCH (22:28)
[2019-03-09] MEDS: METOPROLOL TARTRATE 50 MG TABLET PO SCH (22:33)
[2019-03-10 02:40] LABS: CREATINE KINASE MB 3.08 ng/mL (<4.55); TROPONIN I 0.329 ng/mL
[2019-03-10] MEDS: NICARDIPINE HCL RTU, ISO-OS 20 MG/200 ML RTUINJ IV PRN ×3 (02:45→08:53)
[2019-03-10] MEDS: CLONIDINE HCL 0.1 MG TABLET PO SCH ×3 (06:23→21:46)
[2019-03-10] MEDS: HEPARIN SOD (PORCINE) 5,000 UNIT/ML 1 ML SYRINGE SUBCUT SCH ×3 (06:24→21:48)
[2019-03-10 07:29] LABS: ABSOLUTE BASOPHILS # (AUTO) 0.1 10^3/uL (0.0-0.2); ABSOLUTE LYMPHOCYTES (AUTO) 0.8 10^3/uL (0.5-4.7); ABSOLUTE MONOCYTES (AUTO) 0.9 10^3/uL (0.1-1.4); ABSOLUTE NEUT (AUTO) 13.3 10^3/uL (1.7-8.2); BASOPHILS % (AUTO) 0.5 % (0-2); HEMATOCRIT 28.8 % (36.0-47.0); HEMOGLOBIN 9.3 g/dL (12.0-15.5); LYMPHOCYTES % (AUTO) 5.6 % (13-45); MEAN CORPUSCULAR HGB CONC 32.4 g/dL (32.0-36.0); MEAN CORPUSCULAR VOLUME 74 fl (80-97); MONOCYTES % (AUTO) 6.1 % (3-13); PLATELET COUNT 280 10^3/uL (150-450); RED CELL DISTRIBUTION WIDTH 16.4 % (11.5-14.0); SEGMENTED NEUTROPHILS % (AUTO) 87.8 % (42-78); TOTAL CELLS COUNTED % (AUTO) 100 %; WHITE BLOOD COUNT 15.2 10^3/uL (4.0-10.5)
[2019-03-10 07:47] LABS: ALANINE AMINOTRANSFERASE 16 U/L (9-52); ALBUMIN 3.3 g/dL (3.5-5.0); ALKALINE PHOSPHATASE 88 U/L (38-126); ANION GAP 10 (5-19); ASPARTATE AMINO TRANSFERASE 18 U/L (14-36); BILIRUBIN,DIRECT 0.3 mg/dL (0.0-0.4); BILIRUBIN,TOTAL 0.4 mg/dL (0.2-1.3); BLOOD UREA NITROGEN 43 mg/dL (7-20); CALCIUM 8.9 mg/dL (8.4-10.2); CARBON DIOXIDE 24 mmol/L (22-30); CHLORIDE 104 mmol/L (98-107); GLUCOSE 277 mg/dL (75-110); POTASSIUM 3.4 mmol/L (3.6-5.0); SODIUM 137.9 mmol/L (137-145); TOTAL PROTEIN 6.2 g/dL (6.3-8.2)
[2019-03-10] MEDS: INSULIN LISPRO 100 UNIT/ML 3 ML VIAL SUBCUT SCH ×4 (08:03→21:47)
[2019-03-10] MEDS: METOPROLOL TARTRATE 50 MG TABLET PO SCH ×2 (09:33→21:45)
[2019-03-10] MEDS: FUROSEMIDE 40 MG TABLET PO SCH (09:35)
[2019-03-10] MEDS: ISOSORBIDE MONONITRATE 30 MG TAB.ER.24H PO SCH (09:35)
[2019-03-10] MEDS ORDERED: VALSARTAN 160 MG TABLET PO SCH (10:00)
[2019-03-10] MEDS ORDERED: HYDROCHLOROTHIAZIDE 25 MG TABLET PO SCH (10:00)
[2019-03-10] MEDS ORDERED: POTASSIUM CHLORIDE 10 MEQ CAPSULE.ER PO ONE (16:05)
--- NOTE | 2019-03-10 16:34 | PDOC CONSULTATION ---
Consultation Consult Date: 03/10/19 Provider Consulted: RUY GARCIA Consult reason:: I was asked to see the patient due to acute worsening of kidney function in a patient with chronic kidney disease. 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 Patient relates that starting Sunday night she started her cycle of nausea, vomiting without any diarrhea. That morning she went to [place] and underwent EGD with her paperboard box maker, Dr. Rao who found ulcers. She was prescribed Nexium. Patient has had multiple episodes of experiencing the same symptoms ending up in the emergency room leading to multiple hospitalizations. Patient denies any fever, chills. She states that she has not been eating since Sunday but for the past 5 days at least. She also noted that her blood pressure has been elevated at home and at one point it was 224/117. In the emergency room the patient's blood pressure was 251/137 at one point. Patient was started on Cardene drip which is currently discontinued. Her blood pressure went down rapidly to as low as 120s over 60s today. On admission the patient's kidney function was almost at baseline with BUN of 34, creatinine of 3.10 and EGFR of 18. Today her BUN was 43, creatinine of 4.9 with EGFR of 13. Her baseline creatinine usually ranges between 2.8-3+ and EGFR ranging between 15-1 8. Patient was given minimal amount of IV fluids in the emergency room. Patient claims that despite her nausea and vomiting she has been taking her blood pressure medications and was able to keep them down. She is also trying to keep up with her fluids and trying to drink despite her vomiting. She denies any problem with urination and thinks that her urination at home was normal. Her urinalysis showed greater than or equal to 500 protein and glucose of greater than to equal to 500. Yesterday she made 440 mL using a straight cath. A Rodriguez catheter is now inserted. All her blood pressure medications were resumed including the furosemide, valsartan, hydrochlorothiazide, clonidine and metoprolol. Her current blood pressure is now around 1 20-1 40s over 60s to 80s. Past Medical History Cardiac Medical History: Reports: Coronary Artery Disease, Hyperlipidemia, Hypertension-primary - Diagnosis at least about 28 years ago. Endocrine Medical History: Reports: Diabetes Mellitus Type 2 Complications of Diabetes: Reports: Autonomic Neuropathy, Gastroparesis, Nephropathy, Retinopathy Renal/ Medical History: Reports: Chronic Kidney Disease Stage IV, Proteinuria Malignancy Medical History: Reports: Colorectal Cancer - Status post colon resection. Musculoskeltal Medical History: Reports: Arthritis, Other - Chronic low back pain due to lumbar stenosis Past Surgical History Past Surgical History: Reports: Cardiac Catheterization - stents x 2, Tubal Ligation, Other - Colon resection Social History Information Source: Patient, [facility] Records Smoking Status: Never Smoker Frequency of Alcohol Use: None Hx Recreational Drug Use: No Drugs: None Hx Prescription Drug Abuse: No Family History Family History: DM - Parents, Other - Atrial fibrillation and her mother Parental Family History Reviewed: Yes Children Family History Reviewed: Yes Sibling(s) Family History Reviewed.: Yes Medication/Allergy Home Medications: Aspirin [Adult Low Dose Aspirin EC] 81 mg PO DAILY 01/09/19 Atorvastatin Calcium [Lipitor 80 mg Tablet] 80 mg PO QHS 01/09/19 Clonidine HCl [Catapres 0.3 mg Tablet] 0.3 mg PO Q8 01/09/19 Ergocalciferol (Vitamin D2) [Drisdol 50,000 unit (1.25MG) Capsule] 50,000 unit PO FR@1000 01/09/19 Furosemide [Lasix 40 mg Tablet] 40 mg PO BID 01/09/19 Isosorbide Mononitrate [Imdur 30 mg Tablet.er] 30 mg PO DAILY 01/09/19 Metoprolol Tartrate [Lopressor 100 mg Tablet] 100 mg PO Q12 01/09/19 Valsartan/Hydrochlorothiazide [Diovan Hct 320-25 mg Tablet] 1 tab PO DAILY 01/09/19 Clonidine [Catapres-Tts 1 (0.1 mg/24 Hr) Transderm Patch] 1 each TD Q7D 03/09/19 Allergies/Adverse Reactions: codeine [Codeine] Allergy (Mild, Verified 12/12/17 20:07) meperidine HCl [From Demerol] Allergy (Mild, Verified 12/12/17 20:07) morphine Allergy (Verified 12/12/17 20:07) pregabalin [From Lyrica] Allergy (Verified 08/16/18 08:48) Review of Systems All systems: reviewed and no additional remarkable complaints except as stated Review of Systems: Constitutional: ABSENT: chills, fatigue, fever(s), headache(s), weight gain, weight loss Eyes: ABSENT: visual disturbances Ears: ABSENT: hearing changes Cardiovascular: ABSENT: chest pain, dyspnea on exertion, edema, orthropnea, palpitations Respiratory: ABSENT: cough, dyspnea, hemoptysis Gastrointestinal: ABSENT: abdominal pain, constipation, diarrhea, hematemesis, hematochezia; admits nausea, vomiting Genitourinary: ABSENT: dysuria, hematuria Musculoskeletal: ABSENT: joint swelling Integumentary: ABSENT: rash, wounds Neurological: ABSENT: abnormal gait, abnormal speech, confusion, dizziness, foc al weakness, numbness, syncope Psychiatric: ABSENT: anxiety, depression Endocrine: ABSENT: cold intolerance, heat intolerance, polydipsia, polyuria Hematologic/Lymphatic: ABSENT: easy bleeding, easy bruising, lymphadenopathy Physical Exam Vital Signs: Temp Pulse Resp BP Pulse Ox 97.7 F 65 11 L 132/58 H 97 03/10/19 14:31 03/10/19 14:00 03/10/19 14:31 03/10/19 14:31 03/10/19 14:31 Intake & Output 03/09/19 03/10/19 03/11/19 06:59 06:59 06:59 Intake Total 1262 233 Output Total 440 50 Balance 822 183 Weight 87.2 kg Exam: General appearance: No acute distress, cooperative, well-developed, well- nourished Head exam: PRESENT: atraumatic, normocephalic Eye exam: PRESENT: Conjunctiva slightly pale, EOMI, PERRLA. ABSENT: conjunctival injection, scleral icterus Mouth exam: PRESENT: moist, neck supple, tongue midline Neck exam: PRESENT: full ROM. ABSENT: carotid bruit, JVD, lymphadenopathy, thyromegaly Respiratory exam: PRESENT: clear to auscultation bilaterally. ABSENT: rales, rhonchi, stridor, wheezes Cardiovascular exam: PRESENT: RRR, +S1, +S2. ABSENT: systolic murmur Pulses: PRESENT: normal radial pulses, normal dorsalis pedis pulses GI/Abdominal exam: PRESENT: normal bowel sounds, soft. ABSENT: guarding, mass, tenderness Rectal exam: Deferred Extremities exam: PRESENT: full ROM. ABSENT: calf tenderness, pedal edema Musculoskeletal: PRESENT: full ROM. ABSENT: deformity Neurological exam: PRESENT: alert, Awake, Oriented to person, Oriented to place, Oriented to time, reflexes normal, CN II-XII grossly intact. ABSENT: motor sensory deficit Psychiatric exam: PRESENT: appropriate affect, normal mood. ABSENT: homicidal ideation, suicidal ideation Skin exam: PRESENT: intact, dry, warm. ABSENT: rash Results Laboratory Results: 03/10/19 07:03/10/19 07:17 03/10/19 03/10/19 07: 07:17 WBC 15.2 H RBC 3.90 Hgb 9.3 L Hct 28.8 L MCV 74 L MCH 24.0 L MCHC 32.4 RDW 16.4 H Plt Count 280 Seg Neutrophils % 87.8 H Lymphocytes % 5.6 L Monocytes % 6.1 Eosinophils % 0.0 Basophils % 0.5 Absolute Neutrophils 13.3 H Absolute Lymphocytes 0.8 Absolute Monocytes 0.9 Absolute Eosinophils 0.0 Absolute Basophils 0.1 Sodium 137.9 Potassium 3.4 L Chloride 104 Carbon Dioxide 24 Anion Gap 10 BUN 43 H Creatinine 4.09 H Est GFR ( Amer) 13 L Est GFR (Non-Af Amer) 11 L Glucose 277 H Calcium 8.9 Total Bilirubin 0.4 AST 18 ALT 16 Alkaline Phosphatase 88 Total Protein 6.2 L Albumin 3.3 L 03/09/19 03/09/19 03/09/19 08:14 08:14 14:20 Creatine Kinase 52 CK-MB (CK-2) Troponin I 0.084 NT-Pro-B Natriuret Pep [id number] H 03/09/19 03/09/19 03/09/19 14:20 19:57 19:57 Creatine Kinase 52 CK-MB (CK-2) 1.74 2.19 Troponin I 0.083 0.133 NT-Pro-B Natriuret Pep 03/10/19 03/10/19 02:00 02:00 Creatine Kinase 63 CK-MB (CK-2) 3.08 Troponin I 0.329 NT-Pro-B Natriuret Pep Impressions: Chest X-Ray 03/09/19 07:51 IMPRESSION: Stable mild to moderate cardiomegaly Assessment & Plan - Diagnosis (1) Acute kidney injury superimposed on chronic kidney disease Is this a current diagnosis for this admission?: Yes Plan: Patient has had multiple episodes of acute worsening of kidney function with rapid decrease in her blood pressure concomitant with this episodes of nausea and vomiting. No acute kidney injury is due to the prerenal factors due to this change in blood pressure as well as more likely volume depletion due to her GI complaints. Cardene drip is now discontinued which I totally agree. For this patient who would like her blood pressure to be around 150s to 160s systolic. I will hold her furosemide, hydrochlorothiazide and valsartan for now. Start some cautious IV fluid hydration with normal saline. Patient does not need any renal replacement therapy at this time. Continue to monitor kidney function, urine output and electrolytes. (2) Chronic kidney disease, stage 4 (severe) Is this a current diagnosis for this admission?: Yes Plan: Secondary to diabetic nephropathy and hypertensive nephrosclerosis with nephrotic range proteinuria. (3) Hypertensive crisis Is this a current diagnosis for this admission?: Yes Plan: Was given Cardene drip and now discontinued. Continue all other home blood pressure medications except those that I held. (4) Nausea and vomiting Qualifiers: Vomiting type: unspecified Vomiting Intractability: intractable Qualified Code(s): R11.2 - Nausea with vomiting, unspecified Is this a current diagnosis for this admission?: Yes Plan: I think this is due to a combination of her diabetic gastroparesis and episode of severe hypertension. Currently seems to be improved. (5) Gastroparesis Is this a current diagnosis for this admission?: Yes Plan: Defer to Dr. Alejo. (6) Anemia in chronic kidney disease (CKD) Qualifiers: Chronic kidney disease stage: stage 4 (severe) Qualified Code(s): N18.4 - Chronic kidney disease, stage 4 (severe); D63.1 - Anemia in chronic kidney disease Is this a current diagnosis for this admission?: Yes (7) Hypokalemia Is this a current diagnosis for this admission?: Yes Plan: Give oral potassium 40 mEq x 1 dose today. Continue to monitor and replace as needed. (8) Nephrotic range proteinuria Is this a current diagnosis for this admission?: Yes (9) Type 2 diabetes mellitus Qualifiers: Diabetes mellitus manager long term care insulin use: without manager long term care use Diabetes mellitus complication status: with kidney complications Diabetes mellitus complication detail: with nephropathy Qualified Code(s): E11.21 - Type 2 diabetes mellitus with diabetic nephropathy Is this a current diagnosis for this admission?: Yes - Notes Notes: Thank you very much for this consultation. We will follow the patient along with you. - Time Time Spent: Greater than 70 Minutes
[2019-03-10] MEDS: NORMAL SALINE 1000 ML 1,000 ML IV PRN ×2 (17:15→23:51)
--- NOTE | 2019-03-10 21:02 | PDOC PROGRESS REPORT ---
Subjective Progress Note for:: 03/10/19 Subjective:: Patient seen by the bedside, she developed reduce urinary output, it seemed that the blood pressure was overly corrected, that seem to have provoked acute kidney injury Reason For Visit: HYPERTENSIVE EMERGENCY Physical Exam Vital Signs: Temp Pulse Resp BP Pulse Ox 98.2 F 70 18 149/80 H 100 03/10/19 20:00 03/10/19 20:00 03/10/19 20:00 03/10/19 20:00 03/10/19 20:00 Intake & Output 03/09/19 03/10/19 03/11/19 06:59 06:59 06:59 Intake Total 1262 233 Output Total 440 205 Balance 822 28 Weight 87.2 kg General appearance: PRESENT: no acute distress Eye exam: PRESENT: PERRLA Respiratory exam: PRESENT: clear to auscultation jeanette Cardiovascular exam: PRESENT: +S1, +S2 GI/Abdominal exam: PRESENT: soft Neurological exam: PRESENT: alert, CN II-XII grossly intact Results Laboratory Results: 03/10/19 07:17 03/10/19 07:17 03/10/19 03/10/19 07:17 07:17 WBC 15.2 H RBC 3.90 Hgb 9.3 L Hct 28.8 L MCV 74 L MCH 24.0 L MCHC 32.4 RDW 16.4 H Plt Count 280 Seg Neutrophils % 87.8 H Lymphocytes % 5.6 L Monocytes % 6.1 Eosinophils % 0.0 Basophils % 0.5 Absolute Neutrophils 13.3 H Absolute Lymphocytes 0.8 Absolute Monocytes 0.9 Absolute Eosinophils 0.0 Absolute Basophils 0.1 Sodium 137.9 Potassium 3.4 L Chloride 104 Carbon Dioxide 24 Anion Gap 10 BUN 43 H Creatinine 4.09 H Est GFR ( Amer) 13 L Est GFR (Non-Af Amer) 11 L Glucose 277 H Calcium 8.9 Total Bilirubin 0.4 AST 18 ALT 16 Alkaline Phosphatase 88 Total Protein 6.2 L Albumin 3.3 L 03/09/19 09:06 Clean Catch Midstream Urine Culture - Final Mixed Urogenital [place] 03/09/19 03/09/19 03/09/19 08:14 08:14 14:20 Creatine Kinase 52 CK-MB (CK-2) Troponin I 0.084 NT-Pro-B Natriuret Pep [id number] H 03/09/19 03/09/19 03/09/19 14:20 19:57 19:57 Creatine Kinase 52 CK-MB (CK-2) 1.74 2.19 Troponin I 0.083 0.133 NT-Pro-B Natriuret Pep 03/10/19 03/10/19 02:00 02:00 Creatine Kinase 63 CK-MB (CK-2) 3.08 Troponin I 0.329 NT-Pro-B Natriuret Pep Impressions: Chest X-Ray 03/09/19 07:51 IMPRESSION: Stable mild to moderate cardiomegaly Assessment & Plan - Diagnosis (1) Hypertensive emergency Is this a current diagnosis for this admission?: Yes (2) CKD (chronic kidney disease) stage 4, GFR 15-29 ml/min Is this a current diagnosis for this admission?: Yes (3) CKD stage 4 due to type 2 diabetes mellitus Is this a current diagnosis for this admission?: Yes (4) Intractable vomiting Qualifiers: Vomiting type: unspecified Nausea presence: with nausea Qualified Code(s): R11.2 - Nausea with vomiting, unspecified Is this a current diagnosis for this admission?: Yes (5) Gastroparesis Is this a current diagnosis for this admission?: Yes (6) Acute kidney injury Is this a current diagnosis for this admission?: Yes Plan: She has sustained acute kidney injury with the pre-existing CKD stage IV this is most likely from hemodynamic factors, from blood pressure fluctuation, consultation is requested from nephrology
[2019-03-11] MEDS: CLONIDINE HCL 0.1 MG TABLET PO SCH ×4 (05:12→22:48)
[2019-03-11] MEDS: HEPARIN SOD (PORCINE) 5,000 UNIT/ML 1 ML SYRINGE SUBCUT SCH ×3 (05:12→22:47)
[2019-03-11] MEDS: NORMAL SALINE 1000 ML 1,000 ML IV PRN ×2 (07:43→16:58)
[2019-03-11 07:53] LABS: ABSOLUTE BASOPHILS # (AUTO) 0.1 10^3/uL (0.0-0.2); ABSOLUTE EOSINOPHILS # (AUTO) 0.2 10^3/uL (0.0-0.6); ABSOLUTE LYMPHOCYTES (AUTO) 1.5 10^3/uL (0.5-4.7); ABSOLUTE MONOCYTES (AUTO) 0.9 10^3/uL (0.1-1.4); ABSOLUTE NEUT (AUTO) 7.2 10^3/uL (1.7-8.2); BASOPHILS % (AUTO) 0.7 % (0-2); EOSINOPHILS % (AUTO) 1.8 % (0-6); LYMPHOCYTES % (AUTO) 15.4 % (13-45); MEAN CORPUSCULAR HEMOGLOBIN 24.8 pg (27.0-33.4); MEAN CORPUSCULAR HGB CONC 33.2 g/dL (32.0-36.0); MEAN CORPUSCULAR VOLUME 75 fl (80-97); MONOCYTES % (AUTO) 8.9 % (3-13); PLATELET COUNT 234 10^3/uL (150-450); RED BLOOD COUNT 3.62 10^6/uL (3.72-5.28); RED CELL DISTRIBUTION WIDTH 16.2 % (11.5-14.0); SEGMENTED NEUTROPHILS % (AUTO) 73.2 % (42-78); TOTAL CELLS COUNTED % (AUTO) 100 %; WHITE BLOOD COUNT 9.8 10^3/uL (4.0-10.5)
[2019-03-11] MEDS: INSULIN LISPRO 100 UNIT/ML 3 ML VIAL SUBCUT SCH ×4 (08:03→22:47)
--- NOTE | 2019-03-11 09:31 | PDOC PROGRESS REPORT ---
Subjective Progress Note for:: 03/11/19 Subjective:: Patient is feeling much better. She is making some urine but could still be better. She is starting to eat and drink some fluids. She denies any more nausea nor vomiting. Her blood pressure ranges anywhere between 140s to 170s systolic. He denies any other new complaints. Reason For Visit: HYPERTENSIVE EMERGENCY Physical Exam Vital Signs: Temp Pulse Resp BP Pulse Ox 98.1 F 64 16 172/77 H 96 03/11/19 08:00 03/11/19 08:00 03/11/19 08:00 03/11/19 08:00 03/11/19 08:00 Intake & Output 03/10/19 03/11/19 03/12/19 06:59 06:59 06:59 Intake Total 1262 1513 983 Output Total 440 529 0 Balance 822 984 983 Weight 87.2 kg 89.1 kg Exam: General appearance: PRESENT: no acute distress, cooperative, well-developed, well-nourished Head exam: PRESENT: atraumatic, normocephalic Eye exam: PRESENT: conjunctiva pink, PERRLA. ABSENT: scleral icterus Neck exam: ABSENT: JVD Respiratory exam: PRESENT: Normal breath sounds. ABSENT: crackles, rales, rhonchi, unlabored, wheezes Cardiovascular exam: PRESENT: Regular rate rhythm -+S1, +S2. ABSENT: diastolic murmur, systolic murmur GI/Abdominal exam: PRESENT: normal bowel sounds, soft. ABSENT: guarding, mass, tenderness Extremities exam: ABSENT: No edema Neurological exam: PRESENT: alert, awake, oriented to person, place and time. Skin exam: PRESENT: dry, warm, Results Laboratory Results: 03/11/19 07:37 03/10/19 07:17 03/11/19 07:37 WBC 9.8 RBC 3.62 L Hgb 9.0 L Hct 27.0 L MCV 75 L MCH 24.8 L MCHC 33.2 RDW 16.2 H Plt Count 234 Seg Neutrophils % 73.2 Lymphocytes % 15.4 Monocytes % 8.9 Eosinophils % 1.8 Basophils % 0.7 Absolute Neutrophils 7.2 Absolute Lymphocytes 1.5 Absolute Monocytes 0.9 Absolute Eosinophils 0.2 Absolute Basophils 0.1 03/09/19 09:06 Clean Catch Midstream Urine Culture - Final Mixed Urogenital Hawa 03/09/19 03/09/19 03/09/19 08:14 08:14 14:20 Creatine Kinase 52 CK-MB (CK-2) Troponin I 0.084 NT-Pro-B Natriuret Pep 46062 H 03/09/19 03/09/19 03/09/19 14:20 19:57 19:57 Creatine Kinase 52 CK-MB (CK-2) 1.74 2.19 Troponin I 0.083 0.133 NT-Pro-B Natriuret Pep 03/10/19 03/10/19 02:00 02:00 Creatine Kinase 63 CK-MB (CK-2) 3.08 Troponin I 0.329 NT-Pro-B Natriuret Pep Impressions: Chest X-Ray 03/09/19 07:51 IMPRESSION: Stable mild to moderate cardiomegaly Assessment & Plan - Diagnosis (1) Acute kidney injury superimposed on chronic kidney disease Is this a current diagnosis for this admission?: Yes Plan: Secondary to prerenal hemodynamic factors due to fluctuations of her blood pressure. Patient is nonoliguric but urine output is less than expected. He does not have any fluid overload symptoms no uremic symptoms at this point. Kidney function is slightly worse than yesterday. No acute urgent indication for renal replacement therapy. However if the patient's kidney function continues to deteriorate that would necessarily be considered. Continue to monitor kidney function and electrolytes. Continue IV fluids maintenance at t his time. (2) Chronic kidney disease, stage 4 (severe) Is this a current diagnosis for this admission?: Yes Plan: Secondary to diabetic nephropathy and hypertensive nephrosclerosis. (3) Hypertensive crisis Is this a current diagnosis for this admission?: Yes Plan: Blood pressure improved. I will decrease her clonidine to 0.1 mg p.o. every 8 hours to prevent sudden drop of blood pressure. Continue all oral medications. (4) Nausea and vomiting Qualifiers: Vomiting type: unspecified Vomiting Intractability: intractable Qualified Code(s): R11.2 - Nausea with vomiting, unspecified Is this a current diagnosis for this admission?: Yes Plan: Resolving. (5) Gastroparesis Is this a current diagnosis for this admission?: Yes (6) Anemia in chronic kidney disease (CKD) Qualifiers: Chronic kidney disease stage: stage 4 (severe) Qualified Code(s): N18.4 - Chronic kidney disease, stage 4 (severe); D63.1 - Anemia in chronic kidney disease Is this a current diagnosis for this admission?: Yes Plan: Patient also has significant iron deficiency. We need to correct her iron prior to giving Procrit. (7) Hypokalemia Is this a current diagnosis for this admission?: Yes Plan: Resolved. (8) Nephrotic range proteinuria Is this a current diagnosis for this admission?: Yes (9) Iron deficiency anemia Is this a current diagnosis for this admission?: Yes Plan: We will give a dose of IV Injectafer today. Check stool for occult blood. (10) Secondary hyperparathyroidism (of renal origin) Is this a current diagnosis for this admission?: Yes Plan: Start calcitriol 0.25 mcg daily. (11) Type 2 diabetes mellitus Qualifiers: Diabetes mellitus detention insulin use: without detention use Diabetes mellitus complication status: with kidney complications Diabetes mellitus complication detail: with nephropathy Qualified Code(s): E11.21 - Type 2 diabetes mellitus with diabetic nephropathy Is this a current diagnosis for this admission?: Yes - Time Time with patient: Greater than 35 minutes
[2019-03-11] MEDS: ISOSORBIDE MONONITRATE 30 MG TAB.ER.24H PO SCH (09:38)
[2019-03-11] MEDS: METOPROLOL TARTRATE 50 MG TABLET PO SCH ×2 (09:38→22:48)
[2019-03-11 09:51] LABS: ABSOLUTE RETICS # 0.114 10^6/uL (0.028-0.122); RETICULOCYTE COUNT (AUTO) 3.14 % (0.66-2.85)
[2019-03-11 10:12] LABS: ANION GAP 8 (5-19); BLOOD UREA NITROGEN 47 mg/dL (7-20); CALCIUM 8.1 mg/dL (8.4-10.2); CARBON DIOXIDE 24 mmol/L (22-30); CHLORIDE 106 mmol/L (98-107); GLUCOSE 201 mg/dL (75-110); POTASSIUM 3.8 mmol/L (3.6-5.0); SODIUM 137.7 mmol/L (137-145)
[2019-03-11 10:15] LABS: IRON(TIBC) 16.4 ug/dL (37-170)
[2019-03-11] MEDS ORDERED: FERRIC CARBOXYMALTOSE INJ 750 MG/15 ML VIAL IV ONE (11:30)
[2019-03-11] MEDS: CALCITRIOL 0.25 MCG CAPSULE PO SCH (12:48)
[2019-03-11] MEDS ORDERED: FERRIC CARBOXYMALTOSE 750 MG in NORMAL SALINE 100 ML IV ONE (14:00)
--- NOTE | 2019-03-11 20:55 | PDOC PROGRESS REPORT ---
Subjective Progress Note for:: 03/11/19 Subjective:: Patient was seen by the bedside, she has decreased urinary output, nephrology following, no indication presently for renal replacement therapy Reason For Visit: HYPERTENSIVE EMERGENCY Physical Exam Vital Signs: Temp Pulse Resp BP Pulse Ox 98.8 F 61 13 158/69 H 95 03/11/19 18:35 03/11/19 18:35 03/11/19 18:35 03/11/19 18:35 03/11/19 18:35 Intake & Output 03/10/19 03/11/19 03/12/19 06:59 06:59 06:59 Intake Total 1262 1513 1983 Output Total 440 529 410 Balance 519 782 0403 Weight 87.2 kg 89.1 kg General appearance: PRESENT: no acute distress Eye exam: PRESENT: PERRLA Respiratory exam: PRESENT: clear to auscultation jeanette Cardiovascular exam: PRESENT: +S1, +S2 Neurological exam: PRESENT: alert Results Laboratory Results: 03/11/19 07:37 03/11/19 09:39 03/11/19 03/11/19 03/11/19 07:37 09:39 09:39 WBC 9.8 RBC 3.62 L Hgb 9.0 L Hct 27.0 L MCV 75 L MCH 24.8 L MCHC 33.2 RDW 16.2 H Plt Count 234 Seg Neutrophils % 73.2 Lymphocytes % 15.4 Monocytes % 8.9 Eosinophils % 1.8 Basophils % 0.7 Absolute Neutrophils 7.2 Absolute Lymphocytes 1.5 Absolute Monocytes 0.9 Absolute Eosinophils 0.2 Absolute Basophils 0.1 Retic Count (auto) 3.14 H Absolute Retic 0.114 Sodium Potassium Chloride Carbon Dioxide Anion Gap BUN Creatinine Est GFR ( Amer) Est GFR (Non-Af Amer) Glucose Calcium Iron 16.4 L TIBC 211 L % Saturation 8 Ferritin 77.80 Vitamin B12 487.0 Folate 17.70 PTH Intact 03/11/19 03/11/19 09:39 09:39 WBC RBC Hgb Hct MCV MCH MCHC RDW Plt Count Seg Neutrophils % Lymphocytes % Monocytes % Eosinophils % Basophils % Absolute Neutrophils Absolute Lymphocytes Absolute Monocytes Absolute Eosinophils Absolute Basophils Retic Count (auto) Absolute Retic Sodium 137.7 Potassium 3.8 Chloride 106 Carbon Dioxide 24 Anion Gap 8 BUN 47 H Creatinine 4.37 H Est GFR ( Amer) 12 L Est GFR (Non-Af Amer) 10 L Glucose 201 H Calcium 8.1 L Iron TIBC % Saturation Ferritin Vitamin B12 Folate PTH Intact 407.7 H 03/09/19 09:06 Clean Catch Midstream Urine Culture - Final Mixed Urogenital Hawa 03/09/19 03/09/19 03/09/19 08:14 08:14 14:20 Creatine Kinase 52 CK-MB (CK-2) Troponin I 0.084 NT-Pro-B Natriuret Pep [id number] H 03/09/19 03/09/19 03/09/19 14:20 19:57 19:57 Creatine Kinase 52 CK-MB (CK-2) 1.74 2.19 Troponin I 0.083 0.133 NT-Pro-B Natriuret Pep 03/10/19 03/10/19 02:00 02:00 Creatine Kinase 63 CK-MB (CK-2) 3.08 Troponin I 0.329 NT-Pro-B Natriuret Pep Impressions: Chest X-Ray 03/09/19 07:51 IMPRESSION: Stable mild to moderate cardiomegaly Assessment & Plan - Diagnosis (1) Hypertensive emergency Is this a current diagnosis for this admission?: Yes Plan: Patient to be transferred to [facility], medications adjusted (2) CKD (chronic kidney disease) stage 4, GFR 15-29 ml/min Is this a current diagnosis for this admission?: Yes (3) CKD stage 4 due to type 2 diabetes mellitus Is this a current diagnosis for this admission?: Yes (4) Intractable vomiting Qualifiers: Vomiting type: unspecified Nausea presence: with nausea Qualified Code(s): R11.2 - Nausea with vomiting, unspecified Is this a current diagnosis for this admission?: Yes (5) Gastroparesis Is this a current diagnosis for this admission?: Yes (6) Acute kidney injury Is this a current diagnosis for this admission?: Yes
[2019-03-11] MEDS: FUROSEMIDE 40 MG TABLET PO SCH (22:47)
[2019-03-12] MEDS: NORMAL SALINE 1000 ML 1,000 ML IV PRN ×2 (01:00→08:33)
[2019-03-12] MEDS: CLONIDINE HCL 0.1 MG TABLET PO SCH (05:59)
[2019-03-12] MEDS: HEPARIN SOD (PORCINE) 5,000 UNIT/ML 1 ML SYRINGE SUBCUT SCH ×3 (05:59→21:09)
[2019-03-12 08:14] LABS: ABSOLUTE BASOPHILS # (AUTO) 0.1 10^3/uL (0.0-0.2); ABSOLUTE EOSINOPHILS # (AUTO) 0.2 10^3/uL (0.0-0.6); ABSOLUTE LYMPHOCYTES (AUTO) 1.4 10^3/uL (0.5-4.7); ABSOLUTE MONOCYTES (AUTO) 0.9 10^3/uL (0.1-1.4); ABSOLUTE NEUT (AUTO) 5.8 10^3/uL (1.7-8.2); BASOPHILS % (AUTO) 0.8 % (0-2); EOSINOPHILS % (AUTO) 2.1 % (0-6); HEMATOCRIT 25.9 % (36.0-47.0); HEMOGLOBIN 8.5 g/dL (12.0-15.5); LYMPHOCYTES % (AUTO) 17.2 % (13-45); MEAN CORPUSCULAR HEMOGLOBIN 24.5 pg (27.0-33.4); MEAN CORPUSCULAR HGB CONC 32.7 g/dL (32.0-36.0); MEAN CORPUSCULAR VOLUME 75 fl (80-97); MONOCYTES % (AUTO) 10.3 % (3-13); PLATELET COUNT 219 10^3/uL (150-450); RED BLOOD COUNT 3.46 10^6/uL (3.72-5.28); SEGMENTED NEUTROPHILS % (AUTO) 69.6 % (42-78); TOTAL CELLS COUNTED % (AUTO) 100 %; WHITE BLOOD COUNT 8.4 10^3/uL (4.0-10.5)
[2019-03-12] MEDS: INSULIN LISPRO 100 UNIT/ML 3 ML VIAL SUBCUT SCH ×4 (08:33→22:09)
[2019-03-12 08:40] LABS: ANION GAP 7 (5-19); BLOOD UREA NITROGEN 49 mg/dL (7-20); CALCIUM 7.9 mg/dL (8.4-10.2); CARBON DIOXIDE 21 mmol/L (22-30); CHLORIDE 111 mmol/L (98-107); GLUCOSE 148 mg/dL (75-110); POTASSIUM 4.2 mmol/L (3.6-5.0); SODIUM 138.9 mmol/L (137-145)
[2019-03-12] MEDS: FUROSEMIDE 40 MG TABLET PO SCH ×2 (10:02→21:10)
[2019-03-12] MEDS: ISOSORBIDE MONONITRATE 30 MG TAB.ER.24H PO SCH (10:02)
[2019-03-12] MEDS: METOPROLOL TARTRATE 50 MG TABLET PO SCH ×2 (10:02→21:09)
[2019-03-12] MEDS: CALCITRIOL 0.25 MCG CAPSULE PO SCH (10:02)
[2019-03-12] MEDS ORDERED: NORMAL SALINE 1000 ML 1,000 ML IV PRN (12:04)
--- NOTE | 2019-03-12 12:16 | PDOC PROGRESS REPORT ---
Subjective Progress Note for:: 03/12/19 Subjective:: Patient is clinically much improved and is now transferred to [facility]. She says she feels much better. Her blood pressure is better controlled. Her urine output is a lipid better for the last 24 hours at 720 mL but does not seem to be proportionate to her intake since she was on IV fluids. She denies any other new complaints. Reason For Visit: HYPERTENSIVE EMERGENCY Physical Exam Vital Signs: Temp Pulse Resp BP Pulse Ox 98.5 F 66 18 185/74 H 99 03/12/19 07:53 03/12/19 07:53 03/12/19 07:53 03/12/19 07:53 03/12/19 07:53 Intake & Output 03/11/19 03/12/19 03/13/19 06:59 06:59 06:59 Intake Total 1513 2983 944 Output Total 529 720 Balance 984 2263 944 Weight 89.1 kg 92 kg Exam: General appearance: PRESENT: no acute distress, cooperative, well-developed, well-nourished Head exam: PRESENT: atraumatic, normocephalic Eye exam: PRESENT: conjunctiva pale, PERRLA. ABSENT: scleral icterus Neck exam: ABSENT: JVD Respiratory exam: PRESENT: Normal breath sounds. ABSENT: crackles, rales, rhonchi, unlabored, wheezes Cardiovascular exam: PRESENT: Regular rate rhythm -+S1, +S2. ABSENT: diastolic murmur, systolic murmur GI/Abdominal exam: PRESENT: normal bowel sounds, soft. ABSENT: guarding, mass, tenderness Extremities exam: ABSENT: No edema Neurological exam: PRESENT: alert, awake, oriented to person, place and time. Skin exam: PRESENT: dry, warm, Results Laboratory Results: 03/12/19 08:01 03/12/19 08:01 03/12/19 03/12/19 08:01 08:01 WBC 8.4 RBC 3.46 L Hgb 8.5 L Hct 25.9 L MCV 75 L MCH 24.5 L MCHC 32.7 RDW 16.0 H Plt Count 219 Seg Neutrophils % 69.6 Lymphocytes % 17.2 Monocytes % 10.3 Eosinophils % 2.1 Basophils % 0.8 Absolute Neutrophils 5.8 Absolute Lymphocytes 1.4 Absolute Monocytes 0.9 Absolute Eosinophils 0.2 Absolute Basophils 0.1 Sodium 138.9 Potassium 4.2 Chloride 111 H Carbon Dioxide 21 L Anion Gap 7 BUN 49 H Creatinine 3.99 H Est GFR ( Amer) 13 L Est GFR (Non-Af Amer) 11 L Glucose 148 H Calcium 7.9 L 03/10/19 04:10 Catheterized Urine Urine Culture - Final NO GROWTH 2 DAYS 03/09/19 03/09/19 03/09/19 08:14 08:14 14:20 Creatine Kinase 52 CK-MB (CK-2) Troponin I 0.084 NT-Pro-B Natriuret Pep [id number] H 03/09/19 03/09/19 03/09/19 14:20 19:57 19:57 Creatine Kinase 52 CK-MB (CK-2) 1.74 2.19 Troponin I 0.083 0.133 NT-Pro-B Natriuret Pep 03/10/19 03/10/19 02:00 02:00 Creatine Kinase 63 CK-MB (CK-2) 3.08 Troponin I 0.329 NT-Pro-B Natriuret Pep Impressions: Chest X-Ray 03/09/19 07:51 IMPRESSION: Stable mild to moderate cardiomegaly Assessment & Plan - Diagnosis (1) Acute kidney injury superimposed on chronic kidney disease Is this a current diagnosis for this admission?: Yes Plan: Secondary to prerenal hemodynamic factors due to fluctuations of her blood pressure. Patient is nonoliguric but urine output is less than expected. She does not have any fluid overload symptoms no uremic symptoms at this point. K idney function is finally starting to improve. No acute urgent indication for renal replacement thera Continue to monitor kidney function and electrolytes. Continue IV fluids maintenance at this time. (2) Chronic kidney disease, stage 4 (severe) Is this a current diagnosis for this admission?: Yes Plan: Secondary to diabetic nephropathy and hypertensive nephrosclerosis. I discussed with the patient that her kidney function seems to be slowly deteriorating in time after reviewing her records for the past year. I discussed with her that due to the slow deterioration of her kidney function she would most likely need to be initiated on renal chronic renal replacement therapy at one point although not currently. I discussed with her briefly the treatment options including hemodialysis and peritoneal dialysis for her to think about. She would also need to have periodic and consistent follow-up as an outpatient so that we can prepare her for this eventuality. Unfortunately I have only been seeing the patient here in the hospital when she gets hospitalized but she never really follows up as an outpatient. I emphasized to her the importance of outpatient follow-up to prepare her for eventual need for chronic renal replacement therapy of her choice. (3) Hypertensive crisis Is this a current diagnosis for this admission?: Yes Plan: Blood pressure improved. Increase clonidine 2.2 mg p.o. every 8 hours today.. Continue all oral medications. (4) Nausea and vomiting Qualifiers: Vomiting type: unspecified Vomiting Intractability: intractable Qualified Code(s): R11.2 - Nausea with vomiting, unspecified Is this a current diagnosis for this admission?: Yes Plan: Resolved. (5) Gastroparesis Is this a current diagnosis for this admission?: Yes (6) Anemia in chronic kidney disease (CKD) Qualifiers: Chronic kidney disease stage: stage 4 (severe) Qualified Code(s): N18.4 - C hronic kidney disease, stage 4 (severe); D63.1 - Anemia in chronic kidney disease Is this a current diagnosis for this admission?: Yes Plan: Patient also has significant iron deficiency. We need to correct her iron prior to giving Procrit. She received IV Injectafer yesterday. We will give her a dose of Procrit today. (7) Hypokalemia Is this a current diagnosis for this admission?: Yes Plan: Resolved. (8) Nephrotic range proteinuria Is this a current diagnosis for this admission?: Yes (9) Iron deficiency anemia Is this a current diagnosis for this admission?: Yes Plan: She received a dose of IV Injectafer , 03/11. Check stool for occult blood. (10) Secondary hyperparathyroidism (of renal origin) Is this a current diagnosis for this admission?: Yes Plan: Started calcitriol 0.25 mcg daily. (11) Type 2 diabetes mellitus Qualifiers: Diabetes mellitus intermodal customer service insulin use: without intermodal customer service use Diabetes mellitus complication status: with kidney complications Diabetes mellitus complication detail: with nephropathy Qualified Code(s): E11.21 - Type 2 diabetes mellitus with diabetic nephropathy Is this a current diagnosis for this admission?: Yes - Time Time with patient: 15-25 minutes
[2019-03-12] MEDS ORDERED: EPOETIN ALFA INJ 20000 UNIT/1 ML VIAL (RENAL) SUBCUT ONE (13:00)
[2019-03-12] MEDS: CHOLECALCIFEROL (D3) 1,000 UNIT (25 MCG) TABLET PO SCH (13:25)
[2019-03-12] MEDS: CLONIDINE HCL 0.2 MG TABLET PO SCH ×2 (13:25→21:09)
--- NOTE | 2019-03-12 15:02 | PDOC PROGRESS REPORT ---
Subjective Progress Note for:: 03/12/19 Subjective:: She was seen by the bedside, blood pressure control is a challenge, she has no IV access, she is not a candidate for central line because she is near hemodialysis. Reason For Visit: HYPERTENSIVE EMERGENCY Physical Exam Vital Signs: Temp Pulse Resp BP Pulse Ox 98.8 F 64 17 199/87 H 100 03/12/19 12:02 03/12/19 12:02 03/12/19 12:02 03/12/19 12:02 03/12/19 12:02 Intake & Output 03/11/19 03/12/19 03/13/19 06:59 06:59 06:59 Intake Total 1513 2983 1943 Output Total 397 802 0219 Balance 984 2263 943 Weight 89.1 kg 92 kg General appearance: PRESENT: no acute distress Eye exam: PRESENT: PERRLA Respiratory exam: PRESENT: clear to auscultation jeanette Cardiovascular exam: PRESENT: +S1, +S2 GI/Abdominal exam: PRESENT: soft Results Laboratory Results: 03/12/19 08:01 03/12/19 08:01 03/12/19 03/12/19 08:01 08:01 WBC 8.4 RBC 3.46 L Hgb 8.5 L Hct 25.9 L MCV 75 L MCH 24.5 L MCHC 32.7 RDW 16.0 H Plt Count 219 Seg Neutrophils % 69.6 Lymphocytes % 17.2 Monocytes % 10.3 Eosinophils % 2.1 Basophils % 0.8 Absolute Neutrophils 5.8 Absolute Lymphocytes 1.4 Absolute Monocytes 0.9 Absolute Eosinophils 0.2 Absolute Basophils 0.1 Sodium 138.9 Potassium 4.2 Chloride 111 H Carbon Dioxide 21 L Anion Gap 7 BUN 49 H Creatinine 3.99 H Est GFR ( Amer) 13 L Est GFR (Non-Af Amer) 11 L Glucose 148 H Calcium 7.9 L 03/10/19 04:10 Catheterized Urine Urine Culture - Final NO GROWTH 2 DAYS 03/09/19 03/09/19 03/09/19 08:14 08:14 14:20 Creatine Kinase 52 CK-MB (CK-2) Troponin I 0.084 NT-Pro-B Natriuret Pep [id number] H 03/09/19 03/09/19 03/09/19 14:20 19:57 19:57 Creatine Kinase 52 CK-MB (CK-2) 1.74 2.19 Troponin I 0.083 0.133 NT-Pro-B Natriuret Pep 03/10/19 03/10/19 02:00 02:00 Creatine Kinase 63 CK-MB (CK-2) 3.08 Troponin I 0.329 NT-Pro-B Natriuret Pep Impressions: Chest X-Ray 03/09/19 07:51 IMPRESSION: Stable mild to moderate cardiomegaly Assessment & Plan - Diagnosis (1) Hypertensive emergency Is this a current diagnosis for this admission?: Yes (2) CKD (chronic kidney disease) stage 4, GFR 15-29 ml/min Is this a current diagnosis for this admission?: Yes (3) CKD stage 4 due to type 2 diabetes mellitus Is this a current diagnosis for this admission?: Yes (4) Intractable vomiting Qualifiers: Vomiting type: unspecified Nausea presence: with nausea Qualified Code(s): R11.2 - Nausea with vomiting, unspecified Is this a current diagnosis for this admission?: Yes (5) Gastroparesis Is this a current diagnosis for this admission?: Yes (6) Acute kidney injury Is this a current diagnosis for this admission?: Yes
[2019-03-12] MEDS: ACETAMINOPHEN 325 MG TABLET PO PRN (18:41)
[2019-03-13] MEDS: HEPARIN SOD (PORCINE) 5,000 UNIT/ML 1 ML SYRINGE SUBCUT SCH ×3 (05:03→21:36)
[2019-03-13] MEDS: CLONIDINE HCL 0.2 MG TABLET PO SCH ×3 (05:03→21:37)
[2019-03-13 07:05] LABS: ABSOLUTE BASOPHILS # (AUTO) 0.1 10^3/uL (0.0-0.2); ABSOLUTE EOSINOPHILS # (AUTO) 0.3 10^3/uL (0.0-0.6); ABSOLUTE LYMPHOCYTES (AUTO) 1.2 10^3/uL (0.5-4.7); ABSOLUTE MONOCYTES (AUTO) 0.9 10^3/uL (0.1-1.4); ABSOLUTE NEUT (AUTO) 5.7 10^3/uL (1.7-8.2); BASOPHILS % (AUTO) 0.8 % (0-2); EOSINOPHILS % (AUTO) 3.6 % (0-6); HEMATOCRIT 27.2 % (36.0-47.0); HEMOGLOBIN 8.8 g/dL (12.0-15.5); LYMPHOCYTES % (AUTO) 14.8 % (13-45); MEAN CORPUSCULAR HEMOGLOBIN 24.4 pg (27.0-33.4); MEAN CORPUSCULAR HGB CONC 32.5 g/dL (32.0-36.0); MEAN CORPUSCULAR VOLUME 75 fl (80-97); MONOCYTES % (AUTO) 10.6 % (3-13); PLATELET COUNT 221 10^3/uL (150-450); RED BLOOD COUNT 3.61 10^6/uL (3.72-5.28); RED CELL DISTRIBUTION WIDTH 16.3 % (11.5-14.0); SEGMENTED NEUTROPHILS % (AUTO) 70.2 % (42-78); TOTAL CELLS COUNTED % (AUTO) 100 %; WHITE BLOOD COUNT 8.2 10^3/uL (4.0-10.5)
[2019-03-13 07:33] LABS: BLOOD UREA NITROGEN 48 mg/dL (7-20); GLUCOSE 161 mg/dL (75-110)
[2019-03-13 07:34] LABS: ANION GAP 7 (5-19); CARBON DIOXIDE 21 mmol/L (22-30); CHLORIDE 110 mmol/L (98-107); POTASSIUM 4.2 mmol/L (3.6-5.0); SODIUM 137.8 mmol/L (137-145)
[2019-03-13] MEDS: INSULIN LISPRO 100 UNIT/ML 3 ML VIAL SUBCUT SCH ×4 (07:53→21:36)
[2019-03-13] MEDS: CHOLECALCIFEROL (D3) 1,000 UNIT (25 MCG) TABLET PO SCH (09:00)
[2019-03-13] MEDS: CALCITRIOL 0.25 MCG CAPSULE PO SCH (09:01)
[2019-03-13] MEDS: METOPROLOL TARTRATE 50 MG TABLET PO SCH ×2 (09:01→21:37)
[2019-03-13] MEDS: FUROSEMIDE 40 MG TABLET PO SCH ×2 (09:01→21:36)
[2019-03-13] MEDS: ISOSORBIDE MONONITRATE 30 MG TAB.ER.24H PO SCH (09:01)
--- NOTE | 2019-03-13 11:20 | PDOC PROGRESS REPORT ---
Subjective Progress Note for:: 03/13/19 Subjective:: Patient is feeling fine and denies any nausea, vomiting or diarrhea. Her blood pressure starting to go up again though. Blood pressure ranges to 180-200+ over 70s to 80s. She has made a good urine output for the past 24 hours for a total of 2450 mL. Her IV was left out so she is drinking fluids orally. Reason For Visit: HYPERTENSIVE EMERGENCY Physical Exam Vital Signs: Temp Pulse Resp BP Pulse Ox 98.0 F 62 18 192/83 H 98 03/13/19 08:04 03/13/19 08:04 03/13/19 08:04 03/13/19 08:04 03/13/19 08:04 Intake & Output 03/12/19 03/13/19 03/14/19 06:59 06:59 06:59 Intake Total 2983 2923 Output Total 720 2450 Balance 2263 473 Weight 92 kg 94.5 kg Exam: General appearance: PRESENT: no acute distress, cooperative, well-developed, well-nourished Head exam: PRESENT: atraumatic, normocephalic Eye exam: PRESENT: conjunctiva pink, PERRLA. ABSENT: scleral icterus Neck exam: ABSENT: JVD Respiratory exam: PRESENT: Normal breath sounds. ABSENT: crackles, rales, rhonchi, unlabored, wheezes Cardiovascular exam: PRESENT: Regular rate rhythm -+S1, +S2. ABSENT: diastolic murmur, systolic murmur GI/Abdominal exam: PRESENT: normal bowel sounds, soft. ABSENT: guarding, mass, tenderness Extremities exam: ABSENT: No edema Neurological exam: PRESENT: alert, awake, oriented to person, place and time. Skin exam: PRESENT: dry, warm, Results Laboratory Results: 03/13/19 06:48 03/13/19 06:48 03/13/19 03/13/19 06:48 06:48 WBC 8.2 RBC 3.61 L Hgb 8.8 L Hct 27.2 L MCV 75 L MCH 24.4 L MCHC 32.5 RDW 16.3 H Plt Count 221 Seg Neutrophils % 70.2 Lymphocytes % 14.8 Monocytes % 10.6 Eosinophils % 3.6 Basophils % 0.8 Absolute Neutrophils 5.7 Absolute Lymphocytes 1.2 Absolute Monocytes 0.9 Absolute Eosinophils 0.3 Absolute Basophils 0.1 Sodium 137.8 Potassium 4.2 Chloride 110 H Carbon Dioxide 21 L Anion Gap 7 BUN 48 H Creatinine 3.54 H Est GFR ( Amer) 15 L Est GFR (Non-Af Amer) 13 L Glucose 161 H Calcium 8.0 L 03/10/19 04:10 Catheterized Urine Urine Culture - Final NO GROWTH 2 DAYS 03/09/19 03/09/19 03/09/19 08:14 08:14 14:20 Creatine Kinase 52 CK-MB (CK-2) Troponin I 0.084 NT-Pro-B Natriuret Pep [id number] H 03/09/19 03/09/19 03/09/19 14:20 19:57 19:57 Creatine Kinase 52 CK-MB (CK-2) 1.74 2.19 Troponin I 0.083 0.133 NT-Pro-B Natriuret Pep 03/10/19 03/10/19 02:00 02:00 Creatine Kinase 63 CK-MB (CK-2) 3.08 Troponin I 0.329 NT-Pro-B Natriuret Pep Impressions: Chest X-Ray 03/09/19 07:51 IMPRESSION: Stable mild to moderate cardiomegaly Assessment & Plan - Diagnosis (1) Acute kidney injury superimposed on chronic kidney disease Is this a current diagnosis for this admission?: Yes Plan: Secondary to prerenal hemodynamic factors due to fluctuations of her blood pressure. Urine output is significantly improved over the last 24 hours. She does not have any fluid overload symptoms no uremic symptoms at this point. Kidney function is finally starting to improve. No acute urgent indication for renal replacement therapr. Continue to monitor kidney function and electrolytes. Encourage oral fluid intake. (2) Chronic kidney disease, stage 4 (severe) Is this a current diagnosis for this admission?: Yes Plan: Secondary to diabetic nephropathy and hypertensive nephrosclerosis. I discussed with the patient that her kidney function seems to be slowly deteriorating in [facility] after reviewing her records for the past year. I discussed with her that due to the slow deterioration of her kidney function she would most likely need to be initiated on renal chronic renal replacement therapy at one point although not currently. I discussed with her briefly the treatment options including hemodialysis and peritoneal dialysis for her to think about. She would also need to have periodic and consistent follow-up as an outpatient so that we can prepare her for this eventuality. Unfortunately I have only been seeing the patient here in the hospital when she gets hospitalized but she never really follows up as an outpatient. I emphasized to her the importance of outpatient follow-up to prepare her for eventual need for chronic renal replacement therapy of her choice. (3) Hypertensive crisis Is this a current diagnosis for this admission?: Yes Plan: Blood pressure is elevated for the last 12 hours at least. Increase clonidine back to 0.3 mg every 8 hours and start nifedipine 60 mg p.o. daily first dose now. Continue all oral medications. (4) Nausea and vomiting Qualifiers: Vomiting type: unspecified Vomiting Intractability: intractable Qualified Code(s): R11.2 - Nausea with vomiting, unspecified Is this a current diagnosis for this admission?: Yes Plan: Resolved. (5) Gastroparesis Is this a current diagnosis for this admission?: Yes (6) Anemia in chronic kidney disease (CKD) Qualifiers: Chronic kidney disease stage: stage 4 (severe) Qualified Code(s): N18.4 - Chronic kidney disease, stage 4 (severe); D63.1 - Anemia in chronic kidney disease Is this a current diagnosis for this admission?: Yes Plan: Patient also has significant iron deficiency. We need to correct her iron prior to giving Procrit. She received IV Injectafer yesterday. She was given Procrit yesterday, 03/12. (7) Hypokalemia Is this a current diagnosis for this admission?: Yes Plan: Resolved. (8) Nephrotic range proteinuria Is this a current diagnosis for this admission?: Yes (9) Iron deficiency anemia Is this a current diagnosis for this admission?: Yes Plan: She received a dose of IV Injectafer , 03/11. Check stool for occult blood. (10) Secondary hyperparathyroidism (of renal origin) Is this a current diagnosis for this admission?: Yes Plan: Started calcitriol 0.25 mcg daily. (11) Type 2 diabetes mellitus Qualifiers: Diabetes mellitus longterm insulin use: without longterm use Diabetes mellitus complication status: with kidney complications Diabetes mellitus complication detail: with nephropathy Qualified Code(s): E11.21 - Type 2 diabetes mellitus with diabetic nephropathy Is this a current diagnosis for this admission?: Yes - Time Time with patient: 15-25 minutes
[2019-03-13] MEDS: NIFEDIPINE 30 MG TAB.ER.24 PO SCH (12:22)
[2019-03-13] MEDS: ACETAMINOPHEN 325 MG TABLET PO PRN (16:43)
--- NOTE | 2019-03-13 18:58 | PDOC PROGRESS REPORT ---
Subjective Progress Note for:: 03/13/19 Subjective:: Patient was seen by the bedside, the blood pressure remains elevated, she seems to be establishing a new baseline creatinine Reason For Visit: HYPERTENSIVE EMERGENCY Physical Exam Vital Signs: Temp Pulse Resp BP Pulse Ox 98.2 F 63 18 189/74 H 99 03/13/19 15:00 03/13/19 15:00 03/13/19 15:00 03/13/19 15:00 03/13/19 15:00 Intake & Output 03/12/19 03/13/19 03/14/19 06:59 06:59 06:59 Intake Total 2983 2923 600 Output Total 720 2450 1250 Balance 2263 473 -650 Weight 92 kg 94.5 kg General appearance: PRESENT: no acute distress Eye exam: PRESENT: PERRLA Respiratory exam: PRESENT: clear to auscultation jeanette Cardiovascular exam: PRESENT: +S1, +S2 Neurological exam: PRESENT: alert Results Laboratory Results: 03/13/19 06:48 03/13/19 06:48 03/13/19 03/13/19 06:48 06:48 WBC 8.2 RBC 3.61 L Hgb 8.8 L Hct 27.2 L MCV 75 L MCH 24.4 L MCHC 32.5 RDW 16.3 H Plt Count 221 Seg Neutrophils % 70.2 Lymphocytes % 14.8 Monocytes % 10.6 Eosinophils % 3.6 Basophils % 0.8 Absolute Neutrophils 5.7 Absolute Lymphocytes 1.2 Absolute Monocytes 0.9 Absolute Eosinophils 0.3 Absolute Basophils 0.1 Sodium 137.8 Potassium 4.2 Chloride 110 H Carbon Dioxide 21 L Anion Gap 7 BUN 48 H Creatinine 3.54 H Est GFR ( Amer) 15 L Est GFR (Non-Af Amer) 13 L Glucose 161 H Calcium 8.0 L 03/09/19 03/09/19 03/09/19 08:14 08:14 14:20 Creatine Kinase 52 CK-MB (CK-2) Troponin I 0.084 NT-Pro-B Natriuret Pep 69844 H 03/09/19 03/09/19 03/09/19 14:20 19:57 19:57 Creatine Kinase 52 CK-MB (CK-2) 1.74 2.19 Troponin I 0.083 0.133 NT-Pro-B Natriuret Pep 03/10/19 03/10/19 02:00 02:00 Creatine Kinase 63 CK-MB (CK-2) 3.08 Troponin I 0.329 NT-Pro-B Natriuret Pep Impressions: Chest X-Ray 03/09/19 07:51 IMPRESSION: Stable mild to moderate cardiomegaly Assessment & Plan - Diagnosis (1) Hypertensive emergency Is this a current diagnosis for this admission?: Yes (2) CKD (chronic kidney disease) stage 4, GFR 15-29 ml/min Is this a current diagnosis for this admission?: Yes (3) CKD stage 4 due to type 2 diabetes mellitus Is this a current diagnosis for this admission?: Yes (4) Intractable vomiting Qualifiers: Vomiting type: unspecified Nausea presence: with nausea Qualified Cod e(s): R11.2 - Nausea with vomiting, unspecified Is this a current diagnosis for this admission?: Yes (5) Gastroparesis Is this a current diagnosis for this admission?: Yes (6) Acute kidney injury Is this a current diagnosis for this admission?: Yes
[2019-03-14] MEDS: CLONIDINE HCL 0.2 MG TABLET PO SCH ×2 (05:26→15:17)
[2019-03-14] MEDS: HEPARIN SOD (PORCINE) 5,000 UNIT/ML 1 ML SYRINGE SUBCUT SCH ×2 (05:26→15:17)
[2019-03-14 06:28] LABS: ABSOLUTE BASOPHILS # (AUTO) 0.1 10^3/uL (0.0-0.2); ABSOLUTE EOSINOPHILS # (AUTO) 0.5 10^3/uL (0.0-0.6); ABSOLUTE LYMPHOCYTES (AUTO) 1.6 10^3/uL (0.5-4.7); ABSOLUTE MONOCYTES (AUTO) 1.1 10^3/uL (0.1-1.4); ABSOLUTE NEUT (AUTO) 7.5 10^3/uL (1.7-8.2); BASOPHILS % (AUTO) 0.9 % (0-2); EOSINOPHILS % (AUTO) 4.9 % (0-6); HEMATOCRIT 27.3 % (36.0-47.0); HEMOGLOBIN 9.1 g/dL (12.0-15.5); LYMPHOCYTES % (AUTO) 14.9 % (13-45); MEAN CORPUSCULAR HGB CONC 33.5 g/dL (32.0-36.0); MEAN CORPUSCULAR VOLUME 75 fl (80-97); MONOCYTES % (AUTO) 9.9 % (3-13); PLATELET COUNT 224 10^3/uL (150-450); RED BLOOD COUNT 3.65 10^6/uL (3.72-5.28); RED CELL DISTRIBUTION WIDTH 16.1 % (11.5-14.0); SEGMENTED NEUTROPHILS % (AUTO) 69.4 % (42-78); TOTAL CELLS COUNTED % (AUTO) 100 %; WHITE BLOOD COUNT 10.8 10^3/uL (4.0-10.5)
[2019-03-14 06:43] LABS: ANION GAP 8 (5-19); BLOOD UREA NITROGEN 49 mg/dL (7-20); CALCIUM 8.5 mg/dL (8.4-10.2); CARBON DIOXIDE 21 mmol/L (22-30); CHLORIDE 108 mmol/L (98-107); GLUCOSE 163 mg/dL (75-110); SODIUM 136.9 mmol/L (137-145)
[2019-03-14] MEDS: INSULIN LISPRO 100 UNIT/ML 3 ML VIAL SUBCUT SCH ×3 (08:45→17:42)
[2019-03-14] MEDS ORDERED: PANTOPRAZOLE SODIUM 40 MG TABLET.DR PO SCH (10:00)
[2019-03-14] MEDS: FUROSEMIDE 40 MG TABLET PO SCH (10:32)
[2019-03-14] MEDS: CALCITRIOL 0.25 MCG CAPSULE PO SCH (10:32)
[2019-03-14] MEDS: NIFEDIPINE 30 MG TAB.ER.24 PO SCH (10:32)
[2019-03-14] MEDS: CHOLECALCIFEROL (D3) 1,000 UNIT (25 MCG) TABLET PO SCH (10:33)
[2019-03-14] MEDS: METOPROLOL TARTRATE 50 MG TABLET PO SCH (10:33)
[2019-03-14] MEDS: ISOSORBIDE MONONITRATE 30 MG TAB.ER.24H PO SCH (10:33)
[2019-03-14] MEDS ORDERED: NIFEDIPINE 30 MG TAB.ER.24 PO SCH (13:00)
--- NOTE | 2019-03-14 15:39 | PDOC PROGRESS REPORT ---
Subjective Progress Note for:: 03/14/19 Subjective:: Patient does not have any new complaints. It seems like she is not drinking enough fluids. I counseled her regarding this. She is making an adequate amount of good urine output though for the last 48 hours. Her blood pressure is slightly better but still elevated. Reason For Visit: HYPERTENSIVE EMERGENCY Physical Exam Vital Signs: Temp Pulse Resp BP Pulse Ox 97.8 F 57 L 16 186/67 H 99 03/14/19 07:06 03/14/19 07:06 03/14/19 07:06 03/14/19 07:06 03/14/19 07:06 Intake & Output 03/13/19 03/14/19 03/15/19 06:59 06:59 06:59 Intake Total 2923 600 Output Total 2450 2200 Balance 473 -1600 Weight 94.5 kg 93.8 kg Exam: General appearance: PRESENT: no acute distress, cooperative, well-developed, well-nourished Head exam: PRESENT: atraumatic, normocephalic Eye exam: PRESENT: conjunctiva slightly pale, PERRLA. ABSENT: scleral icterus Neck exam: ABSENT: JVD Respiratory exam: PRESENT: Normal breath sounds. ABSENT: crackles, rales, rhonchi, unlabored, wheezes Cardiovascular exam: PRESENT: Regular rate rhythm -+S1, +S2. ABSENT: diastolic murmur, systolic murmur GI/Abdominal exam: PRESENT: normal bowel sounds, soft. ABSENT: guarding, mass, tenderness Extremities exam: ABSENT: No edema Neurological exam: PRESENT: alert, awake, oriented to person, place and time. Skin exam: PRESENT: dry, warm, Results Laboratory Results: 03/14/19 06:13 03/14/19 06:13 03/14/19 03/14/19 06:13 06:13 WBC 10.8 H RBC 3.65 L Hgb 9.1 L Hct 27.3 L MCV 75 L MCH 25.0 L MCHC 33.5 RDW 16.1 H Plt Count 224 Seg Neutrophils % 69.4 Lymphocytes % 14.9 Monocytes % 9.9 Eosinophils % 4.9 Basophils % 0.9 Absolute Neutrophils 7.5 Absolute Lymphocytes 1.6 Absolute Monocytes 1.1 Absolute Eosinophils 0.5 Absolute Basophils 0.1 Sodium 136.9 L Potassium 4.0 Chloride 108 H Carbon Dioxide 21 L Anion Gap 8 BUN 49 H Creatinine 4.05 H Est GFR ( Amer) 13 L Est GFR (Non-Af Amer) 11 L Glucose 163 H Calcium 8.5 03/09/19 03/09/19 03/09/19 08:14 08:14 14:20 Creatine Kinase 52 CK-MB (CK-2) Troponin I 0.084 NT-Pro-B Natriuret Pep 02319 H 03/09/19 03/09/19 03/09/19 14:20 19:57 19:57 Creatine Kinase 52 CK-MB (CK-2) 1.74 2.19 Troponin I 0.083 0.133 NT-Pro-B Natriuret Pep 03/10/19 03/10/19 02:00 02:00 Creatine Kinase 63 CK-MB (CK-2) 3.08 Troponin I 0.329 NT-Pro-B Natriuret Pep Impressions: Chest X-Ray 03/09/19 07:51 IMPRESSION: Stable mild to moderate cardiomegaly Assessment & Plan - Diagnosis (1) Acute kidney injury superimposed on chronic kidney disease Is this a current diagnosis for this admission?: Yes Plan: Secondary to prerenal hemodynamic factors due to fluctuations of her blood pressure. Urine output is significantly improved over the last 48 hours. She does not have any fluid overload symptoms no uremic symptoms at this point. Kidney function is finally starting to improve however her creatinine is slightly elevated today compared to repeat to yesterday's. No acute urgent indication for renal replacement therapy. Continue to monitor kidney function and electrolytes. Encourage adequate oral fluid intake. I will decrease the Lasix to 40 mg daily. (2) Chronic kidney disease, stage 4 (severe) Is this a current diagnosis for this admission?: Yes Plan: Secondary to diabetic nephropathy and hypertensive nephrosclerosis. I discussed with the patient that her kidney function seems to be slowly deteriorating in time after reviewing her records for the past year. I discussed with her that due to the slow deterioration of her kidney function she would most likely need to be initiated on renal chronic renal replacement therapy at one point although not currently. I discussed with her briefly the treatment options including hemodialysis and peritoneal dialysis for her to think about. She would also need to have periodic and consistent follow-up as an outpatient so that we can prepare her for this eventuality. Unfortunately I have only been seeing the patient here in the hospital when she gets hospitalized but she never really follows up as an outpatient. I emphasized to her the importance of outpatient follow-up to prepare her for eventual need for chronic renal replacement therapy of her choice. (3) Hypertensive crisis Is this a current diagnosis for this admission?: Yes Plan: Increase nifedipine to 60 mg p.o. every 12 hours today. Continue all oral medications. (4) Nausea and vomiting Qualifiers: Vomiting type: unspecified Vomiting Intractability: intractable Qualified Code(s): R11.2 - Nausea with vomiting, unspecified Is this a current diagnosis for this admission?: Yes Plan: Resolved. (5) Gastroparesis Is this a current diagnosis for this admission?: Yes (6) Anemia in chronic kidney disease (CKD) Qualifiers: Chronic kidney disease stage: stage 4 (severe) Qualified Code(s): N18.4 - Chronic kidney disease, stage 4 (severe); D63.1 - Anemia in chronic kidney disease Is this a current diagnosis for this admission?: Yes Plan: Patient also has significant iron deficiency. She received IV Injectafer yesterday. She was given Procrit yesterday, 03/12. (7) Hypokalemia Is this a current diagnosis for this admission?: Yes Plan: Resolved. (8) Nephrotic range proteinuria Is this a current diagnosis for this admission?: Yes (9) Iron deficiency anemia Is this a current diagnosis for this admission?: Yes Plan: She received a dose of IV Injectafer , 03/11. Check stool for occult blood. (10) Secondary hyperparathyroidism (of renal origin) Is this a current diagnosis for this admission?: Yes Plan: Started calcitriol 0.25 mcg daily. (11) Type 2 diabetes mellitus Qualifiers: Diabetes mellitus mcfp insulin use: without certified professional ergonomist use Diabetes mellitus complication status: with kidney complications Diabetes mellitus complication detail: with nephropathy Qualified Code(s): E11.21 - Type 2 diabetes mellitus with diabetic nephropathy Is this a current diagnosis for this admission?: Yes - Time Time with patient: 15-25 minutes
--- NOTE | 2019-03-14 18:12 | PDOC DISCHARGE SUMMARY ---
General - Admit/Disc Date/PCP Admission Date/Primary Care Provider: 03/09/19 12:05 QUINCY ALEJO MD Discharge Date: 03/14/19 - Discharge Diagnosis (1) Hypertensive emergency Is this a current diagnosis for this admission?: Yes (2) CKD (chronic kidney disease) stage 4, GFR 15-29 ml/min Is this a current diagnosis for this admission?: Yes (3) CKD stage 4 due to type 2 diabetes mellitus Is this a current diagnosis for this admission?: Yes (4) Intractable vomiting Is this a current diagnosis for this admission?: Yes (5) Gastroparesis Is this a current diagnosis for this admission?: Yes (6) Acute kidney injury Is this a current diagnosis for this admission?: Yes - Additional Information Resuscitation Status: Full Code Prescriptions: Nifedipine [Procardia XL 30 mg Tablet] 60 mg PO Q12 #180 tab.er.24 Pantoprazole Sodium [Protonix [address] Tablet] 40 mg PO DAILY #90 tablet.dr Home Medications: Aspirin [Adult Low Dose Aspirin EC] 81 mg PO DAILY 01/09/19 Atorvastatin Calcium [Lipitor 80 mg Tablet] 80 mg PO QHS 01/09/19 Clonidine HCl [Catapres 0.3 mg Tablet] 0.3 mg PO Q8 01/09/19 Ergocalciferol (Vitamin D2) [Drisdol 50,000 unit (1.25MG) Capsule] 50,000 unit PO FR@1000 01/09/19 Furosemide [Lasix 40 mg Tablet] 40 mg PO BID 01/09/19 Isosorbide Mononitrate [Imdur 30 mg Tablet.er] 30 mg PO DAILY 01/09/19 Metoprolol Tartrate [Lopressor 100 mg Tablet] 100 mg PO Q12 01/09/19 Valsartan/Hydrochlorothiazide [Diovan Hct 320-25 mg Tablet] 1 tab PO DAILY 01/09/19 Acetaminophen [Tylenol 325 mg Tablet] 650 mg PO Q6HP PRN tablet 03/14/19 Calcitriol [Rocaltrol 0.25 mcg Capsule] 0.25 mcg PO DAILY #90 capsule 03/14/19 Cholecalciferol (Vitamin D3) [Vitamin D3 1000 Unit Tablet] 2,000 unit PO DAILY tablet 03/14/19 Clonidine HCl [Catapres 0.2 mg Tablet] 0.3 mg PO Q8 tablet 03/14/19 Isosorbide Mononitrate [Imdur 30 mg Tablet.er] 30 mg PO DAILY tab.er.24h 03/14/19 Metoprolol Tartrate [Lopressor 50 mg Tablet] 100 mg PO Q12 tablet 03/14/19 Nifedipine [Procardia XL 30 mg Tablet] 60 mg PO Q12 #180 tab.er.24 03/14/19 Pantoprazole Sodium [Protonix [address] Tablet] 40 mg PO DAILY #90 tablet.dr 03/14/19 History of Present Illness History of Present Illness: YG METZ is a 73 year old female, She has a history of chronic kidney disease stage IV due to diabetic nephropathy with nephrotic range proteinuria, diabetic gastroparesis she came to the emergency room for evaluation of persistent vomiting, she was also found to have severe hypertension. Patient has presented in this fashion multiple times she had apparently recently had upp er endoscopy that was done in [place], [place] she told me that they found ulcers and she was prescribed Nexium a PPI, this is ongoing problem for this patient. She has a history of gastroparesis she will typically present with duration of vomiting associated with severely elevated blood pressure, the resistant hypertension is partly from a CKD stage IV, she has difficult to control blood pressure despite taking multiple medications Hospital Course Hospital Course: She was admitted for the management of hypertensive emergency associated with a cute kidney injury, persistent vomiting due to diabetes gastroparesis. She required intravenous nicardipine for the control of blood pressure. She was seen by nephrology Dr. Munroe, she established a new baseline creatinine on this admission, she has CKD stage V, she has resistant hypertension, she required multiple medication to achieve reasonable control of her blood pressure, the resistant hypertension is partly from the chronic kidney disease. Physical Exam Vital Signs: Temp Pulse Resp BP Pulse Ox 98.3 F 58 L 16 173/63 H 98 03/14/19 16:03 03/14/19 16:03 03/14/19 16:03 03/14/19 16:03 03/14/19 16:03 Intake & Output 03/13/19 03/14/19 03/15/19 06:59 06:59 06:59 Intake Total 2923 600 777 Output Total 2450 2200 1800 Balance 473 1600 -1023 Weight 94.5 kg 93.8 kg General appearance: PRESENT: no acute distress, well-developed, well-nourished Head exam: PRESENT: atraumatic, normocephalic Eye exam: PRESENT: conjunctiva pink, EOMI, PERRLA Ear exam: PRESENT: normal external ear exam Mouth exam: PRESENT: moist, tongue midline Neck exam: PRESENT: full ROM Cardiovascular exam: PRESENT: RRR, +S1, +S2 Pulses: PRESENT: normal dorsalis pedis pul, +2 pedal pulses bilateral Vascular exam: PRESENT: normal capillary refill GI/Abdominal exam: PRESENT: normal bowel sounds, soft Rectal exam: PRESENT: deferred Neurological exam: PRESENT: alert, awake, oriented to person, oriented to place, oriented to time, oriented to situation, CN II-XII grossly intact Psychiatric exam: PRESENT: appropriate affect, normal mood Skin exam: PRESENT: dry, intact, warm Results Laboratory Results: 03/14/19 06:13 03/14/19 06:13 03/14/19 03/14/19 06:13 06:13 WBC 10.8 H RBC 3.65 L Hgb 9.1 L Hct 27.3 L MCV 75 L MCH 25.0 L MCHC 33.5 RDW 16.1 H Plt Count 224 Seg Neutrophils % 69.4 Lymphocytes % 14.9 Monocytes % 9.9 Eosinophils % 4.9 Basophils % 0.9 Absolute Neutrophils 7.5 Absolute Lymphocytes 1.6 Absolute Monocytes 1.1 Absolute Eosinophils 0.5 Absolute Basophils 0.1 Sodium 136.9 L Potassium 4.0 Chloride 108 H Carbon Dioxide 21 L Anion Gap 8 BUN 49 H Creatinine 4.05 H Est GFR ( Amer) 13 L Est GFR (Non-Af Amer) 11 L Glucose 163 H Calcium 8.5 03/09/19 14:20 Blood Blood Culture - Final NO GROWTH IN 5 DAYS 03/09/19 08:14 Blood Blood Culture - Final NO GROWTH IN 5 DAYS 03/09/19 03/09/19 03/09/19 08:14 08:14 14:20 Creatine Kinase 52 CK-MB (CK-2) Troponin I 0.084 NT-Pro-B Natriuret Pep 26615 H 03/09/19 03/09/19 03/09/19 14:20 19:57 19:57 Creatine Kinase 52 CK-MB (CK-2) 1.74 2.19 Troponin I 0.083 0.133 NT-Pro-B Natriuret Pep 03/10/19 03/10/19 02:00 02:00 Creatine Kinase 63 CK-MB (CK-2) 3.08 Troponin I 0.329 NT-Pro-B Natriuret Pep Impressions: Chest X-Ray 03/09/19 07:51 IMPRESSION: Stable mild to moderate cardiomegaly Qualifiers - * PATIENT BEING DISCHARGED WITH ANY OF THE FOLLOWING DIAGNOSIS: No VTE patient discharged on overlapping Therapy?: No Reason(s) for not prescribing Overlap Therapy:: Not indicated Stroke Pt being discharged on Anti-thrombolytic therapy?: No Reason(s) for not prescribing Anti-thrombolytic therapy:: Not indicated Stroke Pt being discharged on Anti-coagulation therapy?: No Reason(s) for not prescribing Anti-coagulation therapy:: Not indicated Stroke Pt being discharged on Statins?: No Reason(s) for not prescribing Statins therapy:: Not indicated NC Pt being discharged on Aspirin therapy?: No Reason(s) for not prescribing Aspirin therapy:: Not indicated NC Pt being discharged on Statins?: No Reason(s) for not prescribing Statin therapy:: Not indicated NC Pt discharged ACEI/ARBS?: No Reason(s) for not prescribing ACEI/ARBS:: Not indicated Acute Heart Failure - Is this a Heart Failure Patient?: No 3. Anticoagulant therapy for permanect/persistent/paraoxysmal Afib or Aflutter: N/A
[2019-03-14 18:28] VITALS: BP 158/65
[2019-03-15] MEDS ORDERED: FUROSEMIDE 40 MG TABLET PO SCH (10:00)
== END 2019-03-14 19:40 | disposition home or self-care (01) | DRG 305 ==
LOC: ER 07:34 → UNDOADMIN 12:05 → EH 12:05 → ICU 13:50 → 3W 03-11 23:46
PROVIDERS: ADMIT Internal Medicine; ATTEND Internal Medicine
DX: I16.1 Hypertensive emergency (principal); N18.4 Chronic kidney disease, stage 4 (severe); N17.9 Acute kidney failure, unspecified; N25.81 Secondary hyperparathyroidism of renal origin; E11.22 Type 2 diabetes mellitus with diabetic chronic kidney disease; E11.43 Type 2 diabetes mellitus with diabetic autonomic (poly)neuropathy; K31.84 Gastroparesis; D63.1 Anemia in chronic kidney disease; I12.9 Hypertensive chronic kidney disease with stage 1 through stage 4 chronic kidney disease, or unspecified chronic kidney disease; I25.10 Atherosclerotic heart disease of native coronary artery without angina pectoris; E78.5 Hyperlipidemia, unspecified; M19.90 Unspecified osteoarthritis, unspecified site; M48.061 Spinal stenosis, lumbar region without neurogenic claudication; E87.6 Hypokalemia; R80.9 Proteinuria, unspecified; D50.9 Iron deficiency anemia, unspecified; Z85.038 Personal history of other malignant neoplasm of large intestine; Z90.49 Acquired absence of other specified parts of digestive tract; Z95.5 Presence of coronary angioplasty implant and graft; Z79.82 Long term (current) use of aspirin; Z88.6 Allergy status to analgesic agent; Z86.73 Personal history of transient ischemic attack (TIA), and cerebral infarction without residual deficits; Z83.3 Family history of diabetes mellitus
CPT/HCPCS: 36415; 71045; 80048; 80053; 80307; 81001; 82140; 82150; 82306; 82550; 82553; 82607; 82728; 82746; 82962; 83036; 83540; 83550; 83690; 83735; 83880; 83970; 84100; 84439; 84443; 84484; 85025; 85045; 85610; 85730; 87040; 87086; 93005; 93010; 96374; 96375; 96376; 99291; J0360; J1439; J1644; J1815; J2405; J2550; J2765; J3490; J7030; J7050; Q4081

== ENCOUNTER 2019-03-30 09:03 | Emergency (ER) | payer MEDICARE ==
--- NOTE | 2019-03-30 09:50 | EKG REPORT ---
SEVERITY:- ABNORMAL ECG - SINUS RHYTHM INCOMPLETE RBBB AND LAFB LVH WITH SECONDARY REPOLARIZATION ABNORMALITY : Confirmed by: Kezia Mensah 30-Mar-2019 09:50:15
[2019-03-30] MEDS ORDERED: HYDRALAZINE HCL INJ/PF 20 MG/1 ML SDV IV ONE ×2 (10:16→12:18)
--- NOTE | 2019-03-30 10:40 | ER Document Report ---
Entered by KAYCEE HOLCOMB SCRIBE 03/30/19 1030 Acting as scribe for:NANCIE CUEVAS MD ED Respiratory Problem - General Mode of Arrival: Ambulatory Information source: Patient TRAVEL OUTSIDE OF THE [place] IN LAST 30 DAYS: No <NANCIE CUEVAS - Last Filed: 03/30/19 14:29> <KELLEN LEDESMA E - Last Filed: 03/30/19 18:00> - General Chief Complaint: Shortness Of Breath Stated Complaint: SHORTNESS OF BREATH Time Seen by Provider: 03/30/19 09:55 Primary Care Provider: QUINCY ALEJO MD [Primary Care Provider] - Follow up as needed Notes: 73-year-old female that presents to the emergency department today with complaints of shortness of breath for the last 3 to 4 days. Patient states that tomorrow she has an appointment with her primary care physician, Dr. Alejo but her shortness of breath became worse today so she decided to come to the emergency department. Patient denies any chest pain but does mention that she has an associated chest tightness. (KAYCEE HOLCOMB) 73-year-old female that presents to the emergency department today with c omplaints of shortness of breath for the last 3 to 4 days. Patient states that tomorrow she has an appointment with her primary care physician, Dr. Alejo but her shortness of breath became worse today so she decided to come to the emergency department. Patient denies any chest pain but does mention that she has an associated chest tightness. (NANCIE CUEVAS) - Related Data Allergies/Adverse Reactions: codeine [Codeine] Allergy (Mild, Verified 03/30/19 09:05) meperidine HCl [From Demerol] Allergy (Mild, Verified 03/30/19 09:05) morphine Allergy (Verified 03/30/19 09:05) pregabalin [From Lyrica] Allergy (Verified 03/30/19 09:05) Past Medical History - General Information source: Patient - Social History Smoking Status: Never Smoker Cigarette use (# per day): No Chew tobacco use (# tins/day): No Smoking Education Provided: No Frequency of alcohol use: Occasional Drug Abuse: None Lives with: Family Family History: Reviewed & Not Pertinent, CAD Patient has suicidal ideation: No Patient has homicidal ideation: No - Past Medical History Cardiac Medical History: Reports: Hx Coronary Artery Disease, Hx Hypercholesterolemia, Hx Hypertension Endocrine Medical History: Reports: Hx Diabetes Mellitus Type 2 Renal/ Medical History: Reports: Hx Ovarian Cysts Malignancy Medical History: Reports: Hx Colorectal Cancer - Status post colon resection. Musculoskeletal Medical History: Reports Hx Arthritis Past Surgical History: Reports: Hx Abdominal Surgery - colon resection, Hx Cardiac Catheterization - stents x 2, Hx Gynecologic Surgery, Hx Tubal Ligation, Other - Colon resection - Immunizations Immunizations up to date: Yes Hx Diphtheria, Pertussis, Tetanus Vaccination: Yes <FAITHNANCIE - Last Filed: 03/30/19 14:29> Review of Systems - Review of Systems Constitutional: No symptoms reported EENT: No symptoms reported Cardiovascular: See HPI, Other - chest tightness Respiratory: See HPI, Short of breath Gastrointestinal: No symptoms reported Genitourinary: No symptoms reported Female Genitourinary: No symptoms reported Musculoskeletal: No symptoms reported Skin: No symptoms reported Hematologic/Lymphatic: No symptoms reported Neurological/Psychological: No symptoms reported <NANCIE CUEVAS - Last Filed: 03/30/19 14:29> Physical Exam <FAITHNANCIE Machado - Last Filed: 03/30/19 14:29> - Vital signs Vitals: Temp Pulse Resp BP Pulse Ox 97.9 F 67 16 231/92 H 100 03/30/19 09:09 03/30/19 09:09 03/30/19 09:09 03/30/19 09:09 03/30/19 09:09 - Notes Notes: Physical Exam: General: Alert, appears well. HEENT: Normocephalic. Atraumatic. PERRL. Extraocular movements intact. Oropharynx clear. Neck: Supple. Non-tender. Respiratory: No respiratory distress, saturating 99% on room air. Clear and equal breath sounds bilaterally. Cardiovascular: Regular rate and rhythm. Abdominal: Morbidly obese. Non-tender. No distension. Normal Bowel Sounds. Back: Non-tender. No deformity or step off. Extremities: Moves all four extremities. Upper extremities: Normal inspection. Normal ROM. Lower extremities: Normal inspection. Trace edema. Normal ROM. Neurological: Normal cognition. AAOx4. Normal speech. Psychological: Normal affect. Normal Mood. Skin: Warm. Dry. Normal color. (KAYCEE HOLCOMB) Physical Exam: General: Alert, appears well. HEENT: Normocephalic. Atraumatic. PERRL. Extraocular movements intact. Oropharynx clear. Neck: Supple. Non-tender. Respiratory: No respiratory distress, saturating 99% on room air. Clear and equal breath sounds bilaterally. Cardiovascular: Regular rate and rhythm. Abdominal: Morbidly obese. Non-tender. No distension. Normal Bowel Sounds. Back: Non-tender. No deformity or step off. Extremities: Moves all four extremities. Upper extremities: Normal inspection. Normal ROM. Lower extremities: Normal inspection. Trace edema. Normal ROM. Neurological: Normal cognition. AAOx4. Normal speech. Psychological: Normal affect. Normal Mood. Skin: Warm. Dry. Normal color. (NANCIE CUEVAS) Course - Laboratory Result Diagrams: 03/30/19 10:52 03/30/19 10:52 - Diagnostic Test Radiology reviewed: Image reviewed, Reports reviewed - Chest x-ray shows trace left pleural effusion with minimal left basilar airspace disease. Atelectasis versus pneumonia. - EKG Interpretation by Ia EKG shows normal: Sinus rhythm, [place], Intervals, QRS Complexes, ST-T Waves Rate: Normal - 68 Rhythm: NSR [place]/QRS: RBBB - Incomplete right bundle branch block, LAHB/LAFB Voltage: Consistant with LVH When compared to previous EKG there are: No significant change - Transfer of Care Care transferred to following provider: Dr. Ledesma <NANCIE CUEVAS - Last Filed: 03/30/19 14:29> - Laboratory Result Diagrams: 03/30/19 10:52 03/30/19 10:52 <KELLEN LEDESMA - Last Filed: 03/30/19 18:00> - Re-evaluation Re-evalutation: Laboratory 03/30/19 03/30/19 03/30/19 10:52 10:52 10:52 WBC 6.4 RBC 4.27 Hgb 10.5 L Hct 32.0 L MCV 75 L MCH 24.7 L MCHC 32.9 RDW 17.6 H Plt Count 233 Seg Neutrophils % 69.0 Lymphocytes % 19.4 Monocytes % 8.0 Eosinophils % 3.3 Basophils % 0.3 Absolute Neutrophils 4.4 Absolute Lymphocytes 1.2 Absolute Monocytes 0.5 Absolute Eosinophils 0.2 Absolute Basophils 0.0 D-Dimer Carbonic Acid HCO3/H2CO3 Ratio ABG pH ABG pCO2 ABG pO2 ABG HCO3 ABG Total CO2 ABG O2 Saturation ABG Base Excess FiO2 Sodium 138.5 Potassium 4.3 Chloride 108 H Carbon Dioxide 20 L Anion Gap 11 BUN 34 H Creatinine 3.39 H Est GFR ( Amer) 16 L Est GFR (Non-Af Amer) 13 L Glucose 181 H Calcium 8.9 Total Bilirubin 0.5 Direct Bilirubin 0.4 Neonat Total Bilirubin Not Reportable Neonat Direct Bilirubin Not Reportable Neonat Indirect Bili Not Reportable AST 24 ALT 14 Alkaline Phosphatase 102 Creatine Kinase 56 CK-MB (CK-2) 1.17 Troponin I 0.030 NT-Pro-B Natriuret Pep 39075 H Total Protein 6.5 Albumin 3.4 L Urine Color Urine Appearance Urine pH Ur Specific [place] Urine Protein Urine Glucose (UA) Urine Ketones Urine Blood Urine Nitrite Urine Bilirubin Urine Urobilinogen Ur Leukocyte Esterase Urine WBC (Auto) Urine RBC (Auto) U Hyaline Cast (Auto) Urine Bacteria (Auto) Squamous Epi Cells Auto Urine Mucus (Auto) Urine Ascorbic Acid 03/30/19 03/30/19 03/30/19 10:52 11:08 12:28 WBC RBC Hgb Hct MCV MCH MCHC RDW Plt Count Seg Neutrophils % Lymphocytes % Monocytes % Eosinophils % Basophils % Absolute Neutrophils Absolute Lymphocytes Absolute Monocytes Absolute Eosinophils Absolute Basophils D-Dimer Cancelled Carbonic Acid 0.86 L HCO3/H2CO3 Ratio 21:1 ABG pH 7.43 ABG pCO2 28.7 L ABG pO2 78.4 L ABG HCO3 18.5 L ABG Total CO2 19.4 L ABG O2 Saturation 96.1 ABG Base Excess -4.7 FiO2 ROOM AIR Sodium Potassium Chloride Carbon Dioxide Anion Gap BUN Creatinine Est GFR ( Amer) Est GFR (Non-Af Amer) Glucose Calcium Total Bilirubin Direct Bilirubin Neonat Total Bilirubin Neonat Direct Bilirubin Neonat Indirect Bili AST ALT Alkaline Phosphatase Creatine Kinase CK-MB (CK-2) Troponin I NT-Pro-B Natriuret Pep Total Protein Albumin Urine Color STRAW Urine Appearance CLEAR Urine pH 6.0 Ur Specific [place] 1.008 Urine Protein >=500 H Urine Glucose (UA) 150 H Urine Ketones NEGATIVE Urine Blood NEGATIVE Urine Nitrite NEGATIVE Urine Bilirubin NEGATIVE Urine Urobilinogen NEGATIVE Ur Leukocyte Esterase NEGATIVE Urine WBC (Auto) 4 Urine RBC (Auto) 6 U Hyaline Cast (Auto) 1 Urine Bacteria (Auto) TRACE Squamous Epi Cells Auto 5 Urine Mucus (Auto) RARE Urine Ascorbic Acid NEGATIVE 03/30/19 13:23 WBC RBC Hgb Hct MCV MCH MCHC RDW Plt Count Seg Neutrophils % Lymphocytes % Monocytes % Eosinophils % Basophils % Absolute Neutrophils Absolute Lymphocytes Absolute Monocytes Absolute Eosinophils Absolute Basophils D-Dimer 2.73 H Carbonic Acid HCO3/H2CO3 Ratio ABG pH ABG pCO2 ABG pO2 ABG HCO3 ABG Total CO2 ABG O2 Saturation ABG Base Excess FiO2 Sodium Potassium Chloride Carbon Dioxide Anion Gap BUN Creatinine Est GFR ( Amer) Est GFR (Non-Af Amer) Glucose Calcium Total Bilirubin Direct Bilirubin Neonat Total Bilirubin Neonat Direct Bilirubin Neonat Indirect Bili AST ALT Alkaline Phosphatase Creatine Kinase CK-MB (CK-2) Troponin I NT-Pro-B Natriuret Pep Total Protein Albumin Urine Color Urine Appearance Urine pH Ur Specific [place] Urine Protein Urine Glucose (UA) Urine Ketones Urine Blood Urine Nitrite Urine Bilirubin Urine Urobilinogen Ur Leukocyte Esterase Urine WBC (Auto) Urine RBC (Auto) U Hyaline Cast (Auto) Urine Bacteria (Auto) Squamous Epi Cells Auto Urine Mucus (Auto) Urine Ascorbic Acid Chest X-Ray 03/30/19 10:17 IMPRESSION: Trace left pleural effusion with minimal left basilar airspace disease atelectasis versus pneumonia Lung Scan-VQ NM 03/30/19 14:05 IMPRESSION: No ventilation-perfusion mismatches. 03/30/19 16:43 Patient was signed out to me by Dr. Cuevas with a VQ scan pending. Patient presented with shortness of breath that she says has now resolved. She states she is feeling much better currently except for a headache. Patient does have a history of poorly controlled blood pressure. Patient has no increased work of breathing, accessory muscle use, wheezing. She is able to speak in full sentences. She states that her shortness of breath has completely resolved. VQ scan was reviewed and showed no ventilation/perfusion mismatches. Chest x-ray shows a small trace pleural effusion with an area of atelectasis versus pneumonia although patient denies any cough, fever. I did discuss admission with the patient who states that she would like to go home and see her primary care physician Dr. Alejo tomorrow. Patient vomited her clonidine immediate ly upon taking it so I will re-dose her and recheck her blood pressure prior to discharge. Patient now complaining of a frontal headache. She did receive Reglan, Benadryl and an additional dose of clonidine since she stated that she vomited. 03/30/19 17:55 On reevaluation patient reports that her headache has completely resolved and she is no longer short of breath. She was ambulated on pulse ox and maintained an oxygen saturation of 96%. Again we did discuss admission and patient prefers to see her primary care physician Dr. Alejo tomorrow. She was encouraged to return with any concerning symptoms. is at the bedside and is comfortable with discharge home. (KELLEN LEDESMA) - Vital Signs Vital signs: Temp Pulse Resp BP Pulse Ox 98.3 F 68 0 L 216/92 H 94 03/30/19 17:16 03/30/19 09:37 03/30/19 17:01 03/30/19 17:01 03/30/19 17:01 - Laboratory Laboratory results interpreted by me: 03/30/19 03/30/19 03/30/19 10:52 10:52 10:52 Hgb 10.5 L Hct 32.0 L MCV 75 L MCH 24.7 L RDW 17.6 H D-Dimer Carbonic Acid ABG pCO2 ABG pO2 ABG HCO3 ABG Total CO2 Chloride 108 H Carbon Dioxide 20 L BUN 34 H Creatinine 3.39 H Est GFR ( Amer) 16 L Est GFR (Non-Af Amer) 13 L Glucose 181 H NT-Pro-B Natriuret Pep 17612 H Albumin 3.4 L Urine Protein Urine Glucose (UA) 03/30/19 03/30/19 03/30/19 11:08 12:28 13:23 Hgb Hct MCV MCH RDW D-Dimer 2.73 H Carbonic Acid 0.86 L ABG pCO2 28.7 L ABG pO2 78.4 L ABG HCO3 18.5 L ABG Total CO2 19.4 L Chloride Carbon Dioxide BUN Creatinine Est GFR ( Amer) Est GFR (Non-Af Amer) Glucose NT-Pro-B Natriuret Pep Albumin Urine Protein >=500 H Urine Glucose (UA) 150 H - Transfer of Care Notes: 03/30/19 14:08 Patient's blood pressure is better controlled at this time. ABG shows the patient is hyperventilating to maintain a PO2 of 78. D-dimer is elevated. Patient has stage IV renal failure. A VQ scan has been ordered. Patient's primary care provider is Dr. Alejo, Dr. Zavala is covering his practice today. (NANCIE CUEVAS) Critical Care Note - Critical Care Note Total time excluding time spent on procedures (mins): 40 <NANCIE CUEVAS - Last Filed: 03/30/19 14:29> Discharge <NANCIE CUEVAS - Last Filed: 03/30/19 14:29> <KELLEN LEDESMA - Last Filed: 03/30/19 18:00> - Discharge Clinical Impression: Elevated d-dimer, Uncontrolled hypertension, Chronic kidney disease, stage IV (severe) Dyspnea Qualifiers: Dyspnea type: unspecified Qualified Code(s): R06.00 - Dyspnea, unspecified Headache Qualifiers: Headache type: unspecified Headache chronicity pattern: unspecified pattern Intractability: not intractable Qualified Code(s): R51 - Headache Chronic back pain Qualifiers: Back pain location: back pain in unspecified location Back pain laterality: unspecified Qualified Code(s): M54.9 - Dorsalgia, unspecified; G89.29 - Other chronic pain Condition: Fair Disposition: HOME, SELF-CARE Instructions: Dyspnea, Nonspecific ([facility]), Kidney Failure ([facility]), Headache ([facility]) Forms: Elevated Blood Pressure Referrals: QUINCY ALEJO MD [Primary Care Provider] - 03/31/19 Scribe Attestation: 03/30/19 12:18 I personally performed the services described in the documentation, reviewed and edited the documentation which was dictated to the scribe in my presence, and it accurately records my words and actions. (NANCIE CUEVAS) I personally performed the services described in the documentation, reviewed and edited the documentation which was dictated to the scribe in my presence, and it accurately records my words and actions.
--- NOTE | 2019-03-30 11:04 | RADIOLOGY REPORT (SQ) ---
EXAM DESCRIPTION: CHEST SINGLE VIEW COMPLETED DATE/TIME: 03/30/2019 10:43 am REASON FOR STUDY: SOB COMPARISON: Chest film 01/21/2019, 03/09/2019 EXAM PARAMETERS: NUMBER OF VIEWS: One view. TECHNIQUE: Single frontal radiographic view of the chest acquired. RADIATION DOSE: NA LIMITATIONS: Large patient, portable film FINDINGS: LUNGS AND PLEURA: Trace left pleural effusion is present with left basilar airspace diseas e, atelectasis versus pneumonia. Right lung well inflated and clear. No right pleural effusion. No right or left pneumothorax MEDIASTINUM AND HILAR STRUCTURES: No masses. Contour normal. HEART AND VASCULAR STRUCTURES: Mild cardiomegaly BONES: No acute findings. HARDWARE: None in the chest. OTHER: No other significant finding. IMPRESSION: Trace left pleural effusion with minimal left basilar airspace disease atelectasis versu s pneumonia TECHNICAL DOCUMENTATION: JOB ID: [id number] [employer]- All Rights Reserved Reading location - IP/workstation name: [email or web address]
[2019-03-30 11:17] LABS: ABSOLUTE EOSINOPHILS # (AUTO) 0.2 10^3/uL (0.0-0.6); ABSOLUTE LYMPHOCYTES (AUTO) 1.2 10^3/uL (0.5-4.7); ABSOLUTE MONOCYTES (AUTO) 0.5 10^3/uL (0.1-1.4); ABSOLUTE NEUT (AUTO) 4.4 10^3/uL (1.7-8.2); BASOPHILS % (AUTO) 0.3 % (0-2); EOSINOPHILS % (AUTO) 3.3 % (0-6); HEMOGLOBIN 10.5 g/dL (12.0-15.5); LYMPHOCYTES % (AUTO) 19.4 % (13-45); MEAN CORPUSCULAR HEMOGLOBIN 24.7 pg (27.0-33.4); MEAN CORPUSCULAR HGB CONC 32.9 g/dL (32.0-36.0); MEAN CORPUSCULAR VOLUME 75 fl (80-97); PLATELET COUNT 233 10^3/uL (150-450); RED BLOOD COUNT 4.27 10^6/uL (3.72-5.28); RED CELL DISTRIBUTION WIDTH 17.6 % (11.5-14.0); TOTAL CELLS COUNTED % (AUTO) 100 %; WHITE BLOOD COUNT 6.4 10^3/uL (4.0-10.5)
[2019-03-30 11:24] LABS: ALANINE AMINOTRANSFERASE 14 U/L (9-52); ALBUMIN 3.4 g/dL (3.5-5.0); ALKALINE PHOSPHATASE 102 U/L (38-126); ANION GAP 11 (5-19); ASPARTATE AMINO TRANSFERASE 24 U/L (14-36); BILIRUBIN,DIRECT 0.4 mg/dL (0.0-0.4); BILIRUBIN,TOTAL 0.5 mg/dL (0.2-1.3); BLOOD UREA NITROGEN 34 mg/dL (7-20); CALCIUM 8.9 mg/dL (8.4-10.2); CARBON DIOXIDE 20 mmol/L (22-30); CHLORIDE 108 mmol/L (98-107); CREATINE KINASE 56 U/L (30-135); GLUCOSE 181 mg/dL (75-110); POTASSIUM 4.3 mmol/L (3.6-5.0); SODIUM 138.5 mmol/L (137-145); TOTAL PROTEIN 6.5 g/dL (6.3-8.2)
[2019-03-30 11:29] LABS: APPEARANCE,URINE CLEAR; BILIRUBIN,URINE NEGATIVE (NEGATIVE); COLOR,URINE STRAW; GLUCOSE, URINE 150 mg/dL (NEGATIVE); KETONES,URINE NEGATIVE (NEGATIVE); PROTEIN,URINE >=500 mg/dL (NEGATIVE); URINE SPECIFIC GRAVITY 1.008; UROBILINOGEN,URINE NEGATIVE mg/dL (<2.0)
[2019-03-30 11:30] LABS: LEUKOCYTE ESTERASE,URINE NEGATIVE (NEGATIVE); NITRITE,URINE NEGATIVE (NEGATIVE)
[2019-03-30 11:36] LABS: CREATINE KINASE MB 1.17 ng/mL (<4.55); TROPONIN I 0.03 ng/mL
[2019-03-30] MEDS ORDERED: METOPROLOL TARTRATE PF/INJ 5 MG/5 ML SDV IV ONE (12:18)
[2019-03-30 12:47] LABS: ARTERIAL BLOOD BASE EXCESS -4.7 mmol/L; ARTERIAL BLOOD H2CO3 0.86 mmol/L (1.05-1.35); ARTERIAL BLOOD HCO3 18.5 mmol/L (20-24); ARTERIAL BLOOD O2 SATURATION 96.1 % (94-98); ARTERIAL BLOOD PCO2 28.7 mmHg (35-45); ARTERIAL BLOOD PH 7.43 (7.35-7.45); ARTERIAL BLOOD PO2 78.4 mmHg (80-100); ARTERIAL BLOOD TOTAL CO2 19.4 mmol/L (21-25)
[2019-03-30 12:48] LABS: ARTERIAL BLOOD FIO2 ROOM AIR
[2019-03-30] MEDS ORDERED: CLONIDINE HCL 0.2 MG TABLET PO ONE ×2 (12:53→16:36)
[2019-03-30] MEDS ORDERED: FUROSEMIDE INJ/PF 20 MG/2 ML SDV IV ONE (12:54)
--- NOTE | 2019-03-30 16:27 | RADIOLOGY REPORT (SQ) ---
EXAM DESCRIPTION: NM LUNG VENT/PERF SCAN COMPLETED DATE/TIME: 03/30/2019 4:15 pm REASON FOR STUDY: Hypoxia, elevated d-dimer COMPARISON: None. RADIONUCLIDE AND DOSE: 5.3 millicuries TC-99m MAA Intravenous 31.5 millicuries TC-99m DTPA Inhaled aerosol TECHNIQUE: Eight views of the lungs acquired post ventilation of DTPA aerosol. Eight matching views of the lungs acquired following injection of MAA. LIMITATIONS: None. FINDINGS: VENTILATION: Mild heterogeneous distribution of DTPA aerosol during ventilatory phase. PERFUSION: Perfusion images with generally homogenous activity and no significant defects. No ventil ation-perfusion mismatches. OTHER: No other significant finding. IMPRESSION: No ventilation-perfusion mismatches. TECHNICAL DOCUMENTATION: JOB ID: [id number] [id number] 2010 [employer]- All Rights Reserved Reading location - IP/workstation name: [email or web address]
[2019-03-30] MEDS ORDERED: ONDANSETRON HCL INJ/PF 4 MG/2 ML SDV IV ONE (16:33)
[2019-03-30] MEDS ORDERED: DIPHENHYDRAMINE HCL 50 MG/ML VIAL IV ONE (16:36)
[2019-03-30] MEDS ORDERED: METOCLOPRAMIDE HCL INJ/PF 10 MG/2 ML SDV IV ONE (16:36)
[2019-03-30 18:02] VITALS: BP 184/93
== END 2019-03-30 18:14 | disposition home or self-care (01) ==
LOC: ER 09:03
DX: R79.89 Other specified abnormal findings of blood chemistry (principal); I12.0 Hypertensive chronic kidney disease with stage 5 chronic kidney disease or end stage renal disease; N18.5 Chronic kidney disease, stage 5; R51 Headache; G89.29 Other chronic pain; M54.9 Dorsalgia, unspecified; R06.02 Shortness of breath; I25.10 Atherosclerotic heart disease of native coronary artery without angina pectoris; E78.00 Pure hypercholesterolemia, unspecified; E11.9 Type 2 diabetes mellitus without complications; Z98.51 Tubal ligation status; Z88.6 Allergy status to analgesic agent
CPT/HCPCS: 93005; 96376; 99285; 96374; 96375; 36415; 82553; 82803; 82550; 85025; 80053; 81001; 84484; 85379; 83880; 71045; 78582; 93010; A9540; A9567; A9270; J1200; J1940; J0360; J2765; J3490; J2405; Q9969

== ENCOUNTER 2019-07-18 20:07 | Inpatient (IN) | payer MEDICARE ==
[2019-07-18] MEDS ORDERED: ONDANSETRON HCL INJ/PF 4 MG/2 ML SDV IV ONE (20:40)
[2019-07-18] MEDS ORDERED: LABETALOL HCL INJ 20 MG/4 ML DISP.SYRIN IV ONE (20:41)
--- NOTE | 2019-07-18 20:42 | ER Document Report ---
ED General - General Chief Complaint: Nausea/Vomiting Stated Complaint: NAUSEA/VOMITING Time Seen by Provider: 07/18/19 20:36 Primary Care Provider: QUINCY ALEJO MD [Primary Care Provider] - Follow up as needed Notes: 73-year-old lady with history of hypertension poorly compliant with multiple admissions for hypertensive emergency presents with nausea vomiting and lethargy all day today. Has not been able to take any of her medicines and is been vomiting all day. is a poor historian and patient is altered so history is difficult. She seems weak. There is vomit on her shirt. TRAVEL OUTSIDE OF THE [place] IN LAST 30 DAYS: No - Related Data Allergies/Adverse Reactions: codeine [Codeine] Allergy (Mild, Verified 03/30/19 09:05) meperidine HCl [From Demerol] Allergy (Mild, Verified 03/30/19 09:05) morphine Allergy (Verified 03/30/19 09:05) pregabalin [From Lyrica] Allergy (Verified 03/30/19 09:05) Past Medical History - Social History Smoking Status: Never Smoker Family History: Reviewed & Not Pertinent, CAD Patient has suicidal ideation: No Patient has homicidal ideation: No - Past Medical History Cardiac Medical History: Reports: Hx Coronary Artery Disease, Hx Hypercholesterolemia, Hx Hypertension Endocrine Medical History: Reports: Hx Diabetes Mellitus Type 1, Hx Diabetes Mellitus Type 2 Renal/ Medical History: Reports: Hx Ovarian Cysts. Denies: Hx Peritoneal Dialysis Malignancy Medical History: Reports: Hx Colorectal Cancer - Status post colon resection. Musculoskeletal Medical History: Reports Hx Arthritis Psychiatric Medical History: Denies: Hx Depression Past Surgical History: Reports: Hx Abdominal Surgery - colon resection, Hx Cardiac Catheterization - stents x 2, Hx Gynecologic Surgery, Hx Tubal Ligation, Other - Colon resection. Denies: Hx Hysterectomy - Immunizations Immunizations up to date: Yes Hx Diphtheria, Pertussis, Tetanus Vaccination: Yes Review of Systems - Review of Systems Notes: REVIEW OF SYSTEMS PHYSICAL EXAMINATION General: No acute distress, well-nourished Head: Atraumatic, normocephalic ENT: Mouth normal, oropharynx moist, no exudates or tonsillar enlargement Eyes: Conjunctiva normal, pupils equal, lids normal Neck: No JVD, supple, no guarding CVS: Normal rate, regular rhythm, no murmurs Resp: No resp distress, equal and normal breath sounds bilaterally GI: Nondistended, soft, no tenderness to palpation, no rebound or guarding Ext: No deformities, no edema, normal range of motion in upper and lower ext Back: No CVA or midline TTP Skin: No rash, warm Lymphatic: No lymphadeopathy noted Neuro: Sleepy slow to respond but does follow commands with all 4 tremors. Effort dependent weakness in all 4 extremity's. Requires voice to wake up. Physical Exam - Vital signs Vitals: Temp Pulse Resp BP Pulse Ox 98.7 F 103 H 14 238/107 H 97 07/18/19 20:29 07/18/19 20:29 07/18/19 20:29 07/18/19 20:29 07/18/19 20:29 Course - Re-evaluation Re-evalutation: 07/18/19 21:49 Patient with hypertension presents with acute altered mental status and extreme hypertension concerning for stroke bleed hypertensive encephalopathy. She has no chest pain. Her ECG shows some ST depressions likely result of her hypertension. I do not find lateralizing neuro deficits on her exam but it is quite difficult given her lack of compliance. Initially gave dose of labetalol. Patient was moved to trauma room from the [facility]. She has a known history of chronic kidney disease but is not currently on dialysis. She will be monitored closely in the emergency department his labs are obtained and a head CT is done. She does not meet criteria for acute stroke activation initially. 07/18/19 23:02 Shows flattened T waves and some ST depression. Reassessment the patient's pressure is 175 systolic. Reassessed again at 11:00 back up above [address] and slightly more leth[address]ic. CT read negative. No acute kidney injury but mild hypokalemia. Labs otherwise are consistent. She did not respond well to labetalol so we will start her on nicardipine drip and admitted to the hospitalist versus her primary care to [facility]. - Vital Signs Vital signs: Temp Pulse Resp BP Pulse Ox 98.8 F 103 H 13 239/94 H 96 07/18/19 21:46 07/18/19 20:29 07/18/19 22:01 07/18/19 22:01 07/18/19 22:01 - Laboratory Result Diagrams: 07/18/19 21:40 07/18/19 21:40 Laboratory results interpreted by me: 07/18/19 07/18/19 21:40 21:40 WBC 11.8 H Hgb 11.5 L MCV 78 L MCH 24.8 L MCHC 31.8 L RDW 17.3 H Lymph % (Auto) 5.7 L Absolute Neuts (auto) 10.7 H Seg Neutrophils % 90.4 H Sodium 146.0 H Potassium 3.5 L Chloride 111 H Carbon Dioxide 21 L BUN 40 H Creatinine 4.33 H Est GFR ( Amer) 12 L Est GFR (MDRD) Non-Af 10 L Glucose 183 H - Diagnostic Test Radiology reviewed: Image reviewed, Reports reviewed Critical Care Note - Critical Care Note Total time excluding time spent on procedures (mins): 32 Comments: The above patient is critically ill. Not including procedures, but including direct re-evaluations, speaking with patient and/or consultants, interpreting results, and documenting, I spent the total amount of minute listed listed above on critical care time Discharge - Discharge Clinical Impression: Hypertensive emergency Condition: Fair Disposition: ADMITTED INPATIENT Admitting Provider: Mamie Unit Admitted: IMCU Referrals: QUINCY ALEJO MD [Primary Care Provider] - Follow up as needed
--- NOTE | 2019-07-18 21:26 | RADIOLOGY REPORT (SQ) ---
EXAM DESCRIPTION: CT head without contrast CLINICAL HISTORY: 73 years Female, confusion COMPARISON: CT head 01/09/2019 TECHNIQUE: Axial images of the head were performed without the use of intravenous contrast, with sagittal and coronal reformatted images. This exam was performed according to our departmental dose-optimization program which includes use of Automated Exposure Control, adjustment of the mA and/or kV according to patient size and/or use of iterative reconstruction technique. FINDINGS: No evidence of acute hemorrhage or infarct. No evidence of mass or hydrocephalus. There is cortical atrophy and chronic white matter ischemic changes. There is no significant change, as compared with the prior CT scan. IMPRESSION: No acute finding.
[2019-07-18 21:53] LABS: ABSOLUTE BASOPHILS # (AUTO) 0.1 10^3/uL (0.0-0.2); ABSOLUTE LYMPHOCYTES (AUTO) 0.7 10^3/uL (0.5-4.7); ABSOLUTE MONOCYTES (AUTO) 0.4 10^3/uL (0.1-1.4); ABSOLUTE NEUT (AUTO) 10.7 10^3/uL (1.7-8.2); BASOPHILS % (AUTO) 0.8 % (0-2); HEMOGLOBIN 11.5 g/dL (12.0-15.5); LYMPHOCYTES % (AUTO) 5.7 % (13-45); MEAN CORPUSCULAR HEMOGLOBIN 24.8 pg (27.0-33.4); MEAN CORPUSCULAR HGB CONC 31.8 g/dL (32.0-36.0); MEAN CORPUSCULAR VOLUME 78 fl (80-97); MONOCYTES % (AUTO) 3.1 % (3-13); PLATELET COUNT 302 10^3/uL (150-450); RED BLOOD COUNT 4.62 10^6/uL (3.72-5.28); RED CELL DISTRIBUTION WIDTH 17.3 % (11.5-14.0); SEGMENTED NEUTROPHILS % (AUTO) 90.4 % (42-78); TOTAL CELLS COUNTED % (AUTO) 100 %; WHITE BLOOD COUNT 11.8 10^3/uL (4.0-10.5)
[2019-07-18 22:09] LABS: ANION GAP 14 (5-19); BLOOD UREA NITROGEN 40 mg/dL (7-20); CALCIUM 8.9 mg/dL (8.4-10.2); CARBON DIOXIDE 21 mmol/L (22-30); CHLORIDE 111 mmol/L (98-107); GLUCOSE 183 mg/dL (75-110); POTASSIUM 3.5 mmol/L (3.6-5.0)
[2019-07-18] MEDS ORDERED: NICARDIPINE HCL RTU, ISO-OS 20 MG/200 ML RTUINJ IV PRN (22:52)
[2019-07-18] MEDS ORDERED: NITROGLYCERIN/D5W 250 ML IV PRN (23:36)
[2019-07-18] MEDS ORDERED: GLUCAGON,HUMAN RECOMB 1 MG INJ IM PRN (23:44)
[2019-07-18] MEDS ORDERED: DEXTROSE 40% GEL 15 GM TUBE PO PRN ×2 (23:44)
[2019-07-18] MEDS ORDERED: DEXTROSE 50%-WATER 25 GM/50 ML DISP.SYRIN IV PRN ×2 (23:44)
[2019-07-18 23:49] LABS: PROTHROMBIN TIME 14.2 SEC (11.4-15.4)
[2019-07-18 23:50] LABS: PARTIAL THROMBOPLASTIN TIME 33.1 SEC (23.5-35.8)
[2019-07-18 23:56] LABS: PHOSPHORUS 4.2 mg/dL (2.5-4.5)
[2019-07-19 00:13] LABS: FREE T4 (FREE THYROXINE) 2.19 ng/dL (0.78-2.19)
[2019-07-19] MEDS: NITROGLYCERIN 50 MG/D5W 250 ML IV PRN (00:16)
[2019-07-19 00:27] LABS: THYROID STIMULATING HORMONE 1.67 uIU/mL (0.47-4.68)
[2019-07-19] MEDS: INSULIN LISPRO 100 UNIT/ML 3 ML VIAL SUBCUT SCH ×5 (00:34→22:19)
[2019-07-19] MEDS ORDERED: NICARDIPINE HCL RTU, ISO-OS 20 MG/200 ML RTUINJ IV PRN (04:08)
[2019-07-19 04:10] LABS: ARTERIAL BLOOD BASE EXCESS -0.8 mmol/L; ARTERIAL BLOOD H2CO3 0.99 mmol/L (1.05-1.35); ARTERIAL BLOOD HCO3 22.6 mmol/L (20-24); ARTERIAL BLOOD O2 SATURATION 97.4 % (94-98); ARTERIAL BLOOD PCO2 32.9 mmHg (35-45); ARTERIAL BLOOD PH 7.46 (7.35-7.45); ARTERIAL BLOOD PO2 91.6 mmHg (80-100); ARTERIAL BLOOD TOTAL CO2 23.6 mmol/L (21-25)
[2019-07-19 04:14] LABS: ARTERIAL BLOOD FIO2 ROOM AIR
[2019-07-19 04:31] LABS: ABSOLUTE BASOPHILS # (AUTO) 0.1 10^3/uL (0.0-0.2); ABSOLUTE LYMPHOCYTES (AUTO) 0.8 10^3/uL (0.5-4.7); ABSOLUTE MONOCYTES (AUTO) 1.1 10^3/uL (0.1-1.4); ABSOLUTE NEUT (AUTO) 11.3 10^3/uL (1.7-8.2); BASOPHILS % (AUTO) 0.4 % (0-2); HEMATOCRIT 33.1 % (36.0-47.0); HEMOGLOBIN 10.6 g/dL (12.0-15.5); MEAN CORPUSCULAR HEMOGLOBIN 24.8 pg (27.0-33.4); MEAN CORPUSCULAR HGB CONC 31.9 g/dL (32.0-36.0); MEAN CORPUSCULAR VOLUME 78 fl (80-97); PLATELET COUNT 267 10^3/uL (150-450); RED BLOOD COUNT 4.26 10^6/uL (3.72-5.28); RED CELL DISTRIBUTION WIDTH 17.7 % (11.5-14.0); SEGMENTED NEUTROPHILS % (AUTO) 85.6 % (42-78); TOTAL CELLS COUNTED % (AUTO) 100 %; WHITE BLOOD COUNT 13.2 10^3/uL (4.0-10.5)
[2019-07-19 04:54] LABS: ALBUMIN 3.3 g/dL (3.5-5.0); ALKALINE PHOSPHATASE 78 U/L (38-126); ASPARTATE AMINO TRANSFERASE 22 U/L (14-36); BILIRUBIN,DIRECT 0.4 mg/dL (0.0-0.4); BILIRUBIN,TOTAL 0.4 mg/dL (0.2-1.3); CHOLESTEROL 163.72 mg/dL (0-200); TOTAL PROTEIN 5.8 g/dL (6.3-8.2); TRIGLYCERIDES 109 mg/dL (<150)
[2019-07-19 05:06] LABS: DIRECT LDL 78 mg/dL (<100)
--- NOTE | 2019-07-19 05:35 | ER Document Report ---
Doctor's Note Notes: 07/19/19 05:33 Note I was asked by the loom changeover operator to assist in patient care by placing a central line, patient lost her peripheral IV access, she had 2 lines placed independently, both under ultrasound due to severely difficult access, both were lost. Procedure note: This is an emergency procedure, informed consent is not obtained. After appropriate sterile preparation and draping, under ultrasound guidance, a right sided femoral venous catheter is placed. This is done using Seldinger technique. Was able to the vein in the first time without difficulty. All 3 ports flushed and dry without difficulty, no complications are noted, no postprocedural x-ray is indicated.
[2019-07-19] MEDS: METOPROLOL TARTRATE 100 MG TABLET PO SCH ×3 (05:51→21:34)
[2019-07-19] MEDS: VALSARTAN 160 MG TABLET PO SCH ×2 (05:51→09:31)
[2019-07-19] MEDS: NICARDIPINE HCL RTU, ISO-OS 20 MG/200 ML RTUINJ IV PRN ×3 (05:54→10:46)
[2019-07-19] MEDS: ONDANSETRON HCL INJ/PF 4 MG/2 ML SDV IV PRN (05:54)
[2019-07-19] MEDS: HYDRALAZINE HCL 50 MG TABLET PO SCH ×3 (06:00→21:34)
[2019-07-19] MEDS ORDERED: HEPARIN SOD (PORCINE) 5,000 UNIT/ML 1 ML VIAL SUBCUT SCH (06:00)
[2019-07-19] MEDS ORDERED: HYDRALAZINE HCL 50 MG TABLET PO SCH (06:00)
[2019-07-19] MEDS: HEPARIN SOD (PORCINE) 5,000 UNIT/ML 1 ML VIAL SUBCUT SCH ×3 (06:00→21:35)
--- NOTE | 2019-07-19 06:10 | CRITICAL CARE ADMISSION REPORT ---
HPI Date:: 07/19/19 Time:: 05:30 Reason for ICU Reason:: Hypertensive urgency, nicardipine drip HPI: This patient is a 73 yo woman with long standing high blood pressure and now confusion secondary to hypertensive encephalopathy. She has been through this and last admitted in March of this year. She has been nauseous and unable to take regular medications which are ordered. Past admission suggested increasing hydralazine to 299 q8h which has been done. Nicardipine drip for short term control of BP as it has a tendency to worsen kidney function, or at least that is the thought. My impresion is she will need nicardipine briefly until nausea is subsided and she can take regular medications. Encephalopathy will likely take longer to resolve. History obtained from:: Old records and ED physician - Diagnosis/Plan (1) Hypertensive emergency Is this a current diagnosis for this admission?: Yes Plan: Nicardipine, for a brief time, until regular medications are tolerated. (2) CKD (chronic kidney disease) stage 4, GFR 15-29 ml/min Is this a current diagnosis for this admission?: Yes Plan: Cr 4.3 with GFR about 12. She has seen this before. Numbers are slightly higher than baseline. (3) Intractable vomiting with nausea Is this a current diagnosis for this admission?: Yes Plan: Seems to be controlled on zofran. Likely due to gastroparesis and HTN (4) Type 2 diabetes mellitus Qualifiers: Diabetes mellitus terminal supervisor insulin use: without terminal supervisor use Diabetes mellitus complication status: with kidney complications Diabetes mellitus complication detail: with nephropathy Qualified Code(s): E11.21 - Type 2 diabetes mellitus with diabetic nephropathy Is this a current diagnosis for this admission?: Yes Plan: Currently controlled (5) Encephalopathy acute Is this a current diagnosis for this admission?: Yes Plan: Due to hypertension Past Medical History Cardiac Medical History: Reports: Coronary Artery Disease, Hyperlipidema, Hypertension Endocrine Medical History: Reports: Diabetes Mellitus Type 1, Diabetes Mellitus Type 2 Malignancy Medical History: Reports: Colorectal Cancer - Status post colon resection. Musculoskeltal Medical History: Reports: Arthritis Psychiatric Medical History: Denies: Depression Past Surgical History Past Surgical History: Reports: Cardiac Catheterization - stents x 2, Tubal Ligation, Other - Colon resection Denies: Hysterectomy Social/Family History - Social History Smoking Status: Never Smoker Frequency of Alcohol Use: None Hx Recreational Drug Use: No Drugs: None Hx Prescription Drug Abuse: No - Medication/Allergies Home Medications: Aspirin [Ecotrin 81 mg EC Tablet] 81 mg PO DAILY 04/08/19 Atorvastatin Calcium [Lipitor 80 mg Tablet] 80 mg PO QHS 04/08/19 Clonidine HCl [Catapres 0.2 mg Tablet] 0.3 mg PO TID 04/08/19 Metoprolol Tartrate [Lopressor 100 mg Tablet] 100 mg PO Q12 04/08/19 Furosemide [Lasix 40 mg Tablet] 40 mg PO BID #180 tablet 04/10/19 Hydralazine HCl [Apresoline 50 mg Tablet] 100 mg PO Q8 #90 tablet 04/10/19 Valsartan [Diovan 160 mg Tablet] 320 mg PO DAILY #90 tablet 04/10/19 Allergies/Adverse Reactions: codeine [Codeine] Allergy (Mild, Verified 03/30/19 09:05) meperidine HCl [From Demerol] Allergy (Mild, Verified 03/30/19 09:05) morphine Allergy (Verified 03/30/19 09:05) pregabalin [From Lyrica] Allergy (Verified 03/30/19 09:05) Review of Systems ROS unobtainable: Due to mental status Physical Exam Vital Signs: Temp Pulse Resp BP Pulse Ox 99.0 F 103 H 14 213/177 H 97 07/19/19 04:01 07/18/19 20:29 07/19/19 05:30 07/19/19 05:30 07/19/19 05:30 Intake & Output 07/17/19 07/18/19 07/19/19 06:59 06:59 06:59 Intake Total Weight 76.7 kg Weight/Height Weight 76.7 kg Height 5 ft 2 in Exam: Confused Head exam: PRESENT: atraumatic, normocephalic Eye exam: PRESENT: conjunctiva pink, EOMI, PERRLA. ABSENT: scleral icterus Ear exam: PRESENT: normal external ear exam Mouth exam: PRESENT: moist, tongue midline Neck exam: ABSENT: carotid bruit, JVD, lymphadenopathy, thyromegaly Respiratory exam: PRESENT: clear to auscultation jeanette. ABSENT: rales, rhonchi, wheezes Cardiovascular exam: PRESENT: RRR. ABSENT: diastolic murmur, rubs, systolic murmur Pulses: PRESENT: normal dorsalis pedis pul Vascular exam: PRESENT: normal capillary refill GI/Abdominal exam: PRESENT: normal bowel sounds, soft. ABSENT: distended, guarding, mass, organolmegaly, rebound, tenderness Rectal exam: PRESENT: deferred Neurological exam: PRESENT: alert, altered Psychiatric exam: PRESENT: anxious Laboratory/Radiographs Laboratory Results: 07/19/19 04:02 07/18/19 21:40 07/18/19 07/18/19 07/18/19 21:40 21:40 21:40 WBC 11.8 H RBC 4.62 Hgb 11.5 L Hct 36.0 MCV 78 L MCH 24.8 L MCHC 31.8 L RDW 17.3 H Plt Count 302 Seg Neutrophils % 90.4 H Carbonic Acid HCO3/H2CO3 Ratio ABG pH ABG pCO2 ABG pO2 ABG HCO3 ABG O2 Saturation ABG Base Excess FiO2 Sodium 146.0 H Cancelled Potassium 3.5 L Cancelled Chloride 111 H Cancelled Carbon Dioxide 21 L Cancelled Anion Gap 14 Cancelled BUN 40 H Cancelled Creatinine 4.33 H Cancelled Est GFR ( Amer) 12 L Cancelled Est GFR (Non-Af Amer) Cancelled Glucose 183 H Cancelled Calcium 8.9 Cancelled Phosphorus 4.2 Magnesium 2.1 Total Bilirubin AST Alkaline Phosphatase Ammonia Total Protein Albumin Triglycerides Cholesterol LDL Cholesterol Direct VLDL Cholesterol HDL Cholesterol Amylase 54 Lipase 101.2 TSH Free T4 07/18/19 07/19/19 07/19/19 21:40 00:21 03:52 WBC RBC Hgb Hct MCV MCH MCHC RDW Plt Count Seg Neutrophils % Carbonic Acid 0.99 L HCO3/H2CO3 Ratio 22:1 ABG pH 7.46 H ABG pCO2 32.9 L ABG pO2 91.6 ABG HCO3 22.6 ABG O2 Saturation 97.4 ABG Base Excess -0.8 FiO2 ROOM AIR Sodium Potassium Chloride Carbon Dioxide Anion Gap BUN Creatinine Est GFR ( Amer) Est GFR (Non-Af Amer) Glucose Calcium Phosphorus Magnesium Total Bilirubin AST Alkaline Phosphatase Ammonia < 8.7 L Total Protein Albumin Triglycerides Cholesterol LDL Cholesterol Direct VLDL Cholesterol HDL Cholesterol Amylase Lipase TSH 1.67 Free T4 2.19 07/19/19 07/19/19 04:02 04:02 WBC 13.2 H RBC 4.26 Hgb 10.6 L Hct 33.1 L MCV 78 L MCH 24.8 L MCHC 31.9 L RDW 17.7 H Plt Count 267 Seg Neutrophils % 85.6 H Carbonic Acid HCO3/H2CO3 Ratio ABG pH ABG pCO2 ABG pO2 ABG HCO3 ABG O2 Saturation ABG Base Excess FiO2 Sodium Potassium Chloride Carbon Dioxide Anion Gap BUN Creatinine Est GFR ( Amer) Est GFR (Non-Af Amer) Glucose Calcium Phosphorus Magnesium Total Bilirubin 0.4 AST 22 Alkaline Phosphatase 78 Ammonia Total Protein 5.8 L Albumin 3.3 L Triglycerides 109 Cholesterol 163.72 LDL Cholesterol Direct 78 VLDL Cholesterol 22.0 HDL Cholesterol 54 Amylase Lipase TSH Free T4 07/18/19 07/18/19 21:40 21:40 Troponin I 0.049 NT-Pro-B Natriuret Pep [id number] H Impressions: Head CT 07/18/19 20:40 IMPRESSION: No acute finding. Critical Time Critical Time (minutes): 45 -: The care of a critically ill patient is dynamic. This note represents a static moment in the admission process. orders and treatments may be given simulataneously and urgentl, and time is not patient account representative of the treatment process. This patient requires Critical Care secondary to life threating organ or limb dysfunction. Without the need for Critical Care services, the patient is at risk for increasid mortality and morbidity.
[2019-07-19] MEDS: ASPIRIN 81 MG TABLET, ENT COATED PO SCH (09:31)
[2019-07-19] MEDS: METOCLOPRAMIDE HCL INJ/PF 10 MG/2 ML SDV IV SCH ×2 (12:57→21:34)
[2019-07-19] MEDS: CLONIDINE HCL 0.2 MG TABLET PO SCH ×2 (13:03→21:34)
--- NOTE | 2019-07-19 13:09 | EKG REPORT ---
SEVERITY:- ABNORMAL ECG - SINUS TACHYCARDIA VENTRICULAR PREMATURE COMPLEX INCOMPLETE LEFT BUNDLE BRANCH BLOCK PROBABLE LVH WITH SECONDARY REPOL ABNRM : Confirmed by: Jennifer De Jesus MD 19-Jul-2019 13:09:04
[2019-07-19] MEDS: NORMAL SALINE 1000 ML 1,000 ML IV PRN (13:21)
[2019-07-19 13:36] LABS: APPEARANCE,URINE CLOUDY; BILIRUBIN,URINE NEGATIVE (NEGATIVE); COLOR,URINE AMBER; GLUCOSE, URINE NEGATIVE (NEGATIVE); KETONES,URINE TRACE mg/dL (NEGATIVE); LEUKOCYTE ESTERASE,URINE TRACE (NEGATIVE); NITRITE,URINE NEGATIVE (NEGATIVE); PROTEIN,URINE >=500 mg/dL (NEGATIVE); URINE SPECIFIC GRAVITY 1.023; UROBILINOGEN,URINE NEGATIVE mg/dL (<2.0)
[2019-07-19 13:47] LABS: URINE AMPHETAMINES SCREEN NEGATIVE; URINE BARBITURATES SCREEN NEGATIVE; URINE BENZODIAZEPINES SCREEN NEGATIVE; URINE COCAINE SCREEN NEGATIVE; URINE MARIJUANA (THC) SCREEN NEGATIVE; URINE METHADONE SCREEN NEGATIVE; URINE PHENCYCLIDINE SCREEN NEGATIVE
[2019-07-19] MEDS ORDERED: INFLUENZA QUAD (6MOS+) 2019-20 VAC 0.5 ML SYR IM ONE (15:00)
[2019-07-19] MEDS ORDERED: METOPROLOL TARTRATE PF/INJ 5 MG/5 ML SDV IV ONE (20:20)
--- NOTE | 2019-07-19 21:28 | EKG REPORT ---
SEVERITY:- ABNORMAL ECG - SINUS RHYTHM LVH WITH IVCD, LAD AND SECONDARY REPOL ABNRM : Confirmed by: Jennifer De Jesus MD 19-Jul-2019 21:27:00
[2019-07-20] MEDS: NORMAL SALINE 1000 ML 1,000 ML IV PRN (02:34)
[2019-07-20] MEDS: METOPROLOL TARTRATE PF/INJ 5 MG/5 ML SDV IV PRN ×3 (02:35→08:14)
[2019-07-20 04:34] LABS: ABSOLUTE BASOPHILS # (AUTO) 0.1 10^3/uL (0.0-0.2); ABSOLUTE LYMPHOCYTES (AUTO) 1.6 10^3/uL (0.5-4.7); ABSOLUTE MONOCYTES (AUTO) 1.7 10^3/uL (0.1-1.4); ABSOLUTE NEUT (AUTO) 11.5 10^3/uL (1.7-8.2); BASOPHILS % (AUTO) 0.4 % (0-2); EOSINOPHILS % (AUTO) 0.1 % (0-6); HEMATOCRIT 26.9 % (36.0-47.0); HEMOGLOBIN 8.6 g/dL (12.0-15.5); LYMPHOCYTES % (AUTO) 10.4 % (13-45); MEAN CORPUSCULAR HGB CONC 32.1 g/dL (32.0-36.0); MEAN CORPUSCULAR VOLUME 78 fl (80-97); MONOCYTES % (AUTO) 11.8 % (3-13); PLATELET COUNT 227 10^3/uL (150-450); RED BLOOD COUNT 3.45 10^6/uL (3.72-5.28); RED CELL DISTRIBUTION WIDTH 17.5 % (11.5-14.0); SEGMENTED NEUTROPHILS % (AUTO) 77.3 % (42-78); TOTAL CELLS COUNTED % (AUTO) 100 %; WHITE BLOOD COUNT 14.8 10^3/uL (4.0-10.5)
[2019-07-20] MEDS: HYDRALAZINE HCL 50 MG TABLET PO SCH ×3 (04:35→21:58)
[2019-07-20] MEDS: CLONIDINE HCL 0.2 MG TABLET PO SCH ×3 (04:35→21:58)
[2019-07-20 04:58] LABS: ALBUMIN 2.7 g/dL (3.5-5.0); ALKALINE PHOSPHATASE 63 U/L (38-126); ANION GAP 9 (5-19); ASPARTATE AMINO TRANSFERASE 23 U/L (14-36); BILIRUBIN,DIRECT 0.3 mg/dL (0.0-0.4); BILIRUBIN,TOTAL 0.3 mg/dL (0.2-1.3); BLOOD UREA NITROGEN 51 mg/dL (7-20); CALCIUM 8.2 mg/dL (8.4-10.2); CARBON DIOXIDE 25 mmol/L (22-30); CHLORIDE 109 mmol/L (98-107); GLUCOSE 128 mg/dL (75-110); POTASSIUM 3.2 mmol/L (3.6-5.0); TOTAL PROTEIN 5.3 g/dL (6.3-8.2)
[2019-07-20] MEDS: HEPARIN SOD (PORCINE) 5,000 UNIT/ML 1 ML VIAL SUBCUT SCH ×3 (05:55→21:57)
[2019-07-20] MEDS: INSULIN LISPRO 100 UNIT/ML 3 ML VIAL SUBCUT SCH ×4 (08:14→21:58)
[2019-07-20] MEDS: METOCLOPRAMIDE HCL INJ/PF 10 MG/2 ML SDV IV SCH ×2 (09:00→21:57)
[2019-07-20] MEDS: VALSARTAN 160 MG TABLET PO SCH (09:00)
[2019-07-20] MEDS: ASPIRIN 81 MG TABLET, ENT COATED PO SCH (09:00)
[2019-07-20] MEDS: METOPROLOL TARTRATE 100 MG TABLET PO SCH ×2 (09:00→21:57)
[2019-07-20] MEDS ORDERED: FUROSEMIDE INJ/PF 40 MG/4 ML SDV IV ONE (10:35)
[2019-07-20] MEDS: NICARDIPINE HCL RTU, ISO-OS 20 MG/200 ML RTUINJ IV PRN (12:32)
[2019-07-21] MEDS: NICARDIPINE HCL RTU, ISO-OS 20 MG/200 ML RTUINJ IV PRN ×3 (03:50→20:25)
[2019-07-21] MEDS: HYDRALAZINE HCL 50 MG TABLET PO SCH ×3 (06:46→23:10)
[2019-07-21] MEDS: CLONIDINE HCL 0.2 MG TABLET PO SCH ×3 (06:46→23:09)
[2019-07-21] MEDS: HEPARIN SOD (PORCINE) 5,000 UNIT/ML 1 ML VIAL SUBCUT SCH ×3 (06:47→23:10)
[2019-07-21 07:00] LABS: ABSOLUTE BASOPHILS # (AUTO) 0.1 10^3/uL (0.0-0.2); ABSOLUTE EOSINOPHILS # (AUTO) 0.2 10^3/uL (0.0-0.6); ABSOLUTE LYMPHOCYTES (AUTO) 1.3 10^3/uL (0.5-4.7); ABSOLUTE MONOCYTES (AUTO) 1.3 10^3/uL (0.1-1.4); ABSOLUTE NEUT (AUTO) 6.6 10^3/uL (1.7-8.2); ALBUMIN 2.7 g/dL (3.5-5.0); ALKALINE PHOSPHATASE 64 U/L (38-126); ANION GAP 6 (5-19); ASPARTATE AMINO TRANSFERASE 18 U/L (14-36); BASOPHILS % (AUTO) 0.9 % (0-2); BILIRUBIN,DIRECT 0.4 mg/dL (0.0-0.4); BILIRUBIN,TOTAL 0.4 mg/dL (0.2-1.3); BLOOD UREA NITROGEN 50 mg/dL (7-20); CALCIUM 7.9 mg/dL (8.4-10.2); CARBON DIOXIDE 24 mmol/L (22-30); CHLORIDE 105 mmol/L (98-107); GLUCOSE 139 mg/dL (75-110); HEMATOCRIT 27.1 % (36.0-47.0); HEMOGLOBIN 8.8 g/dL (12.0-15.5); LYMPHOCYTES % (AUTO) 14.3 % (13-45); MEAN CORPUSCULAR HEMOGLOBIN 25.2 pg (27.0-33.4); MEAN CORPUSCULAR HGB CONC 32.4 g/dL (32.0-36.0); MEAN CORPUSCULAR VOLUME 78 fl (80-97); MONOCYTES % (AUTO) 13.4 % (3-13); PLATELET COUNT 213 10^3/uL (150-450); POTASSIUM 3.2 mmol/L (3.6-5.0); RED BLOOD COUNT 3.49 10^6/uL (3.72-5.28); RED CELL DISTRIBUTION WIDTH 17.2 % (11.5-14.0); SEGMENTED NEUTROPHILS % (AUTO) 69.4 % (42-78); TOTAL CELLS COUNTED % (AUTO) 100 %; TOTAL PROTEIN 5.4 g/dL (6.3-8.2); WHITE BLOOD COUNT 9.4 10^3/uL (4.0-10.5)
[2019-07-21] MEDS: INSULIN LISPRO 100 UNIT/ML 3 ML VIAL SUBCUT SCH ×4 (07:32→23:09)
[2019-07-21] MEDS: VALSARTAN 160 MG TABLET PO SCH (09:10)
[2019-07-21] MEDS: FUROSEMIDE 40 MG TABLET PO SCH ×2 (09:10→17:14)
[2019-07-21] MEDS: ASPIRIN 81 MG TABLET, ENT COATED PO SCH (09:10)
[2019-07-21] MEDS: METOPROLOL TARTRATE 100 MG TABLET PO SCH ×2 (09:11→23:10)
[2019-07-21] MEDS: METOCLOPRAMIDE HCL INJ/PF 10 MG/2 ML SDV IV SCH ×2 (09:11→23:11)
[2019-07-21] MEDS ORDERED: NIFEDIPINE 30 MG TAB.ER.24 PO SCH (10:00)
--- NOTE | 2019-07-21 10:26 | PDOC PROGRESS REPORT ---
Subjective Progress Note for:: 07/21/19 Subjective:: Critical Care Progress Note Pt remains on the Cardene drip. States she has no further nausea and vomiting. Reason For Visit: HYPERTENSIVE URGENCY AND ENCEPHALOPATHY Physical Exam Vital Signs: Temp Pulse Resp BP Pulse Ox 99.1 F 68 17 175/72 H 99 07/21/19 08:00 07/21/19 08:00 07/21/19 08:00 07/21/19 08:00 07/21/19 08:00 Intake & Output 07/20/19 07/21/19 07/22/19 06:59 06:59 06:59 Intake Total 1660 982 Output Total 100 770 45 Balance 1560 212 -45 Weight 78.5 kg 82.5 kg General appearance: PRESENT: no acute distress, well-developed, well-nourished Respiratory exam: PRESENT: clear to auscultation jeanette, unlabored Cardiovascular exam: PRESENT: RRR GI/Abdominal exam: PRESENT: soft Extremities exam: PRESENT: other - no edema Results Laboratory Results: 07/21/19 06:35 07/21/19 06:35 07/21/19 07/21/19 06:35 06:35 WBC 9.4 RBC 3.49 L Hgb 8.8 L Hct 27.1 L MCV 78 L MCH 25.2 L MCHC 32.4 RDW 17.2 H Plt Count 213 Seg Neutrophils % 69.4 Sodium 135.2 L Potassium 3.2 L Chloride 105 Carbon Dioxide 24 Anion Gap 6 BUN 50 H Creatinine 4.51 H Est GFR ( Amer) 12 L Glucose 139 H Calcium 7.9 L Total Bilirubin 0.4 AST 18 Alkaline Phosphatase 64 Total Protein 5.4 L Albumin 2.7 L 07/19/19 12:58 Clean Catch Midstream Urine Culture - Final Escherichia Coli 07/18/19 07/18/19 21:40 21:40 Troponin I 0.049 NT-Pro-B Natriuret Pep [id number] H Impressions: Head CT 07/18/19 20:40 IMPRESSION: No acute finding. Assessment & Plan - Diagnosis (1) Hypertensive urgency Is this a current diagnosis for this admission?: Yes (3) Diabetes mellitus type 2 in obese Is this a current diagnosis for this admission?: Yes (4) Gastroparesis Is this a current diagnosis for this admission?: Yes (5) Encephalopathy acute Is this a current diagnosis for this admission?: Yes - Time Time Spent with patient: 25-34 minutes Level of Care: ICU Medications reviewed and adjusted accordingly: Yes Anticipated discharge: Home Within: within 48 hours Provider Note Provider Note: Assessment: 73 yo woman with hypertensive urgency, DM, CKD IV, gastroparesis, hypertensive encephalopathy. Plan: 1. Respiratory: stable on nasal cannula 2. CV: hypertensive urgency. Remains on cardene drip, wean as tolerated. Continue clonidine, hydralazine, lopressor, valsartan. Resume home lasix. Add procardia 3.Renal: CKD Stage IV. Consult her avionics systems engineer 4. ID: urine culture from admission positive for GNR. UA positive for trace leukocytes. Was a clean catch specimen. This may represent a contaminant. Pt is afebrile and has no elevated WBC. 5.Neuro: hypertensive encephalopathy, resolved 6. Endocrine: type II DM. Blood sugars acceptable. Accuchecks, SSI 7 GI: diabetic gastroparesis. Continue reglan 8. Nutrition: renal diet 9. Prophylaxis: sq heparin 10. at bedside. Updated on pt condition and plan of care..
--- NOTE | 2019-07-21 18:52 | PDOC CONSULTATION ---
Consultation Consult Date: 07/21/19 Provider Consulted: Carter BUNCH Consult reason:: CKD 4 History of Present Illness Admission Date/PCP: 07/18/19 23:28 QUINCY ALEJO MD History of Present Illness: YG RUSSO is a 73 year old female with history of hypertension with multiple admissions for hypertensive emergency, complicated diabetes mellitus with history of neuropathy and retinopathy presents with nausea vomiting and lethargy x 1 day. Has not been able to take any of her medicines and is been vomiting all day. She says besides all of that she has a BP machine at home and she takes her blood pressure and it was 200+ and decided to come to the ER. She denies any history of chest pain or shortness of breath. No history of any headaches or focal deficits. She says she is compliant with medications but other providers notes says otherwise. Labs and medications were reviewed. Patient has been admitted to the ICU and begun on a nicardipine drip. On review of Dr. Alejo's notes from previously it seems that the patient has had worsening renal functions whenever she has been admitted with similar situation and has been begun on nicardipine drip.Currently she sitting on a recliner and feels pretty good. She is awake alert and coherent and oriented x3. Patient has been worked for secondary hypertension in the past. She had a renal artery Doppler done in 2016 which apparently was negative.She is a patient of Dr. Munroe who was 1 of my partners and she has got baseline CKD stage IV with a creatinine approximating between 3.5-4.5. Past Medical History Cardiac Medical History: Reports: Coronary Artery Disease, Hyperlipidemia, Hypertension-primary - Diagnosis at least about 28 years ago. 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 Musculoskeltal Medical History: Reports: Arthritis Psychiatric Medical History: Denies: Depression Past Surgical History Past Surgical History: Reports: Cardiac Catheterization - stents x 2, Tubal Ligation, Other - Colon resection Denies: Hysterectomy Social History Smoking Status: Never Smoker Frequency of Alcohol Use: None Hx Recreational Drug Use: No Drugs: None Hx Prescription Drug Abuse: No Family History Parental Family History Reviewed: No Children Family History Reviewed: No Sibling(s) Family History Reviewed.: No Medication/Allergy Home Medications: Aspirin [Ecotrin 81 mg EC Tablet] 81 mg PO DAILY 04/08/19 Atorvastatin Calcium [Lipitor 80 mg Tablet] 80 mg PO QHS 04/08/19 Clonidine HCl [Catapres 0.2 mg Tablet] 0.2 mg PO TID 04/08/19 Metoprolol Tartrate [Lopressor 100 mg Tablet] 100 mg PO Q12 04/08/19 Furosemide [Lasix 40 mg Tablet] 40 mg PO BID #180 tablet 04/10/19 Hydralazine HCl [Apresoline 50 mg Tablet] 100 mg PO Q8 #90 tablet 04/10/19 Valsartan [Diovan 160 mg Tablet] 320 mg PO DAILY #90 tablet 04/10/19 Allergies/Adverse Reactions: codeine [Codeine] Allergy (Mild, Verified 03/30/19 09:05) meperidine HCl [From Demerol] Allergy (Mild, Verified 03/30/19 09:05) morphine Allergy (Verified 03/30/19 09:05) pregabalin [From Lyrica] Allergy (Verified 03/30/19 09:05) Review of Systems Constitutional: ABSENT: fever(s), headache(s), night sweats, weakness Nose, Mouth, and Throat: ABSENT: mouth pain, sore throat Cardiovascular: ABSENT: chest pain, dyspnea on exertion, edema, orthropnea, palpitations Respiratory: ABSENT: dyspnea, hemoptysis Gastrointestinal: PRESENT: nausea, vomiting. ABSENT: abdominal pain, bloating, coffee ground emesis, diarrhea, dysphagia, heartburn, hematemesis, hematochezia Musculoskeletal: ABSENT: deformity, joint swelling Integumentary: ABSENT: lesions, pruritus, rash Neurological: ABSENT: abnormal gait, abnormal movements, abnormal speech, focal weakness, frequent falls Psychiatric: PRESENT: anxiety Hematologic/Lymphatic: ABSENT: easy bruising, lymphadenopathy Physical Exam Vital Signs: Temp Pulse Resp BP Pulse Ox 97.6 F 65 12 172/69 H 97 07/21/19 16:00 07/21/19 18:00 07/21/19 18:00 07/21/19 18:00 07/21/19 18:00 Intake & Output 07/20/19 07/21/19 07/22/19 06:59 06:59 06:59 Intake Total 1660 982 400 Output Total 100 770 145 Balance 1560 212 255 Weight 78.5 kg 82.5 kg General appearance: PRESENT: no acute distress Eye exam: PRESENT: EOMI, PERRLA Ear exam: PRESENT: normal external ear exam Mouth exam: PRESENT: moist Neck exam: ABSENT: lymphadenopathy, meningismus, tenderness, thyromegaly, tracheal deviation Respiratory exam: PRESENT: clear to auscultation jeanette, crackles Cardiovascular exam: PRESENT: +S1, +S2 GI/Abdominal exam: PRESENT: normal bowel sounds, soft. ABSENT: organomegaly, tenderness Extremities exam: PRESENT: pedal edema Neurological exam: PRESENT: alert, awake, oriented to person, oriented to place, oriented to time Psychiatric exam: PRESENT: anxious Focused psych exam: ABSENT: delusional, euphoric, flight of ideas Skin exam: ABSENT: cyanosis, erythema, mottled, rash Results Laboratory Results: 07/21/19 06:35 07/21/19 06:35 07/21/19 07/21/19 06:35 06:35 WBC 9.4 RBC 3.49 L Hgb 8.8 L Hct 27.1 L MCV 78 L MCH 25.2 L MCHC 32.4 RDW 17.2 H Plt Count 213 Seg Neutrophils % 69.4 Sodium 135.2 L Potassium 3.2 L Chloride 105 Carbon Dioxide 24 Anion Gap 6 BUN 50 H Creatinine 4.51 H Est GFR ( Amer) 12 L Glucose 139 H Calcium 7.9 L Total Bilirubin 0.4 AST 18 Alkaline Phosphatase 64 Total Protein 5.4 L Albumin 2.7 L 07/19/19 12:58 Clean Catch Midstream Urine Culture - Final Escherichia Coli 07/18/19 07/18/19 21:40 21:40 Troponin I 0.049 NT-Pro-B Natriuret Pep [id number] H Impressions: Head CT 07/18/19 20:40 IMPRESSION: No acute finding. Assessment & Plan - Diagnosis (1) Encephalopathy acute Is this a current diagnosis for this admission?: Yes Plan: Secondary to severe hypertension. Presently hypertension better and the encephalopathy is also resolved. (2) Hypertensive emergency Is this a current diagnosis for this admission?: Yes Plan: Currently she is on nicardipine drip and blood pressure systolics from 160. However I am being told by the nurses that the urine output is dropping. She had a Rodriguez catheter that was earlier removed by the machine shop instructor. I am going to reintroduce the Rodriguez catheter and if urine output is dropping and then I am going to DC the nicardipine drip and start her instead on a nitroglycerin drip. Discussed with Shaka the treating nurse in the ICU.Patient has had renal Dopplers in 2016 which is not as sensitive as an MRA which which I am going to order without contrast. Discussed with Juan Pablo the treating nurse. (3) CKD (chronic kidney disease) stage 4, GFR 15-29 ml/min Is this a current diagnosis for this admission?: Yes Plan: Is got obviously diabetic CKD. She does not have any features of heart failure or uremia to indicate initiation of hemodialysis at the moment. She is making good amounts of urine and unless we see otherwise patient does not need any form of renal interventions. (4) Nausea and vomiting Qualifiers: Vomiting type: unspecified Vomiting Intractability: intractable Qualified Code(s): R11.2 - Nausea with vomiting, unspecified Plan: In the face of a hypertensive emergency and hypertensive encephalopathy. Currently resolved. (5) Type 2 diabetes mellitus Qualifiers: Diabetes mellitus mcfp insulin use: unspecified terminal carman insulin use status Diabetes mellitus complication status: without complication Qualified Code(s): E11.9 - Type 2 diabetes mellitus without complications Plan: Controlled as seen by the recent A1c of 5.3. (6) Anemia in chronic kidney disease (CKD) Qualifiers: Chronic kidney disease stage: stage 4 (severe) Qualified Code(s): N18.4 - Chronic kidney disease, stage 4 (severe); D63.1 - Anemia in chronic kidney disease Plan: We will get iron studies. Later consider need to initiate erythropoietin unless she is already on it at our office. (7) Nephrotic range proteinuria Plan: Secondary to diabetic renal disease. Will quantify.
[2019-07-22 04:23] LABS: ABSOLUTE BASOPHILS # (AUTO) 0.1 10^3/uL (0.0-0.2); ABSOLUTE EOSINOPHILS # (AUTO) 0.3 10^3/uL (0.0-0.6); ABSOLUTE LYMPHOCYTES (AUTO) 1.2 10^3/uL (0.5-4.7); ABSOLUTE MONOCYTES (AUTO) 1.3 10^3/uL (0.1-1.4); ABSOLUTE NEUT (AUTO) 5.5 10^3/uL (1.7-8.2); BASOPHILS % (AUTO) 0.7 % (0-2); EOSINOPHILS % (AUTO) 3.6 % (0-6); HEMATOCRIT 24.7 % (36.0-47.0); HEMOGLOBIN 8.1 g/dL (12.0-15.5); LYMPHOCYTES % (AUTO) 14.3 % (13-45); MEAN CORPUSCULAR HEMOGLOBIN 25.2 pg (27.0-33.4); MEAN CORPUSCULAR HGB CONC 32.7 g/dL (32.0-36.0); MEAN CORPUSCULAR VOLUME 77 fl (80-97); MONOCYTES % (AUTO) 15.3 % (3-13); PLATELET COUNT 190 10^3/uL (150-450); RED BLOOD COUNT 3.21 10^6/uL (3.72-5.28); SEGMENTED NEUTROPHILS % (AUTO) 66.1 % (42-78); TOTAL CELLS COUNTED % (AUTO) 100 %; WHITE BLOOD COUNT 8.4 10^3/uL (4.0-10.5)
[2019-07-22] MEDS: CLONIDINE HCL 0.2 MG TABLET PO SCH ×3 (06:31→21:47)
[2019-07-22] MEDS: HYDRALAZINE HCL 50 MG TABLET PO SCH ×3 (06:31→21:46)
[2019-07-22] MEDS: METOPROLOL TARTRATE PF/INJ 5 MG/5 ML SDV IV PRN ×2 (06:32→22:24)
[2019-07-22 07:53] LABS: ANION GAP 9 (5-19); BLOOD UREA NITROGEN 55 mg/dL (7-20); CALCIUM 7.4 mg/dL (8.4-10.2); CARBON DIOXIDE 22 mmol/L (22-30); CHLORIDE 101 mmol/L (98-107); GLUCOSE 166 mg/dL (75-110); POTASSIUM 3.2 mmol/L (3.6-5.0)
[2019-07-22] MEDS: INSULIN LISPRO 100 UNIT/ML 3 ML VIAL SUBCUT SCH ×4 (08:48→21:56)
--- NOTE | 2019-07-22 08:52 | PDOC PROGRESS REPORT ---
Subjective Progress Note for:: 07/22/19 Subjective:: Critical Care Progress Note Pt is off the cardene drip. Did not need to be started on NTG drip. Had MRA of the kidneys last night. Also have 1 episode of NSVT last night. Reason For Visit: HYPERTENSIVE URGENCY AND ENCEPHALOPATHY Physical Exam Vital Signs: Temp Pulse Resp BP Pulse Ox 98.4 F 64 12 168/59 H 100 07/22/19 08:17 07/22/19 08:00 07/22/19 08:17 07/22/19 08:17 07/22/19 08:17 Intake & Output 07/21/19 07/22/19 07/23/19 06:59 06:59 06:59 Intake Total 982 1037 Output Total 770 520 0 Balance 212 517 0 Weight 82.5 kg General appearance: PRESENT: no acute distress, well-developed, well-nourished Respiratory exam: PRESENT: clear to auscultation jeanette, unlabored Cardiovascular exam: PRESENT: RRR GI/Abdominal exam: PRESENT: soft Gentrourinary exam: PRESENT: indwelling catheter Extremities exam: PRESENT: other - no edema Results Laboratory Results: 07/22/19 03:58 07/22/19 03:58 07/22/19 07/22/19 07/22/19 03:58 03:58 03:58 WBC 8.4 RBC 3.21 L Hgb 8.1 L Hct 24.7 L MCV 77 L MCH 25.2 L MCHC 32.7 RDW 16.0 H Plt Count 190 Seg Neutrophils % 66.1 Sodium 132.3 L Potassium 3.2 L Chloride 101 Carbon Dioxide 22 Anion Gap 9 BUN 55 H Creatinine 4.36 H Est GFR ( Amer) 12 L Glucose 166 H Calcium 7.4 L Phosphorus 3.5 PTH Intact 07/22/19 03:58 WBC RBC Hgb Hct MCV MCH MCHC RDW Plt Count Seg Neutrophils % Sodium Potassium Chloride Carbon Dioxide Anion Gap BUN Creatinine Est GFR ( Amer) Glucose Calcium Phosphorus PTH Intact 410.6 H 07/19/19 12:58 Clean Catch Midstream Urine Culture - Final Escherichia Coli 07/18/19 07/18/19 21:40 21:40 Troponin I 0.049 NT-Pro-B Natriuret Pep [id number] H Impressions: Head CT 07/18/19 20:40 IMPRESSION: No acute finding. Assessment & Plan - Diagnosis (1) Hypertensive urgency Is this a current diagnosis for this admission?: Yes (3) Diabetes mellitus type 2 in obese Is this a current diagnosis for this admission?: Yes (4) Gastroparesis Is this a current diagnosis for this admission?: Yes (5) Encephalopathy acute Is this a current diagnosis for this admission?: Yes (6) UTI (urinary tract infection), bacterial Is this a current diagnosis for this admission?: Yes - Time Time Spent with patient: 25-34 minutes Level of Care: ICU Provider Note Provider Note: Assessment: 73 yo woman with hypertensive urgency, DM, CKD IV, gastroparesis, hypertensive encephalopathy. Plan: 1. Respiratory: stable on RA 2. CV: hypertensive urgency, resolving. Off cardene drip. Did not need to be started on NTG drip Continue clonidine, hydralazine, lopressor, valsartan, procardia. BP meds per nephrology. NSVT last night. Replace K. Check magnesium level 3.Renal: CKD Stage IV. Renal following. MRA of kidneys pending 4. ID: E.coli UTI, POA. Will start augmentin 5.Neuro: hypertensive encephalopathy, resolved 6. Endocrine: type II DM. Blood sugars acceptable. Accuchecks, SSI 7 GI: diabetic gastroparesis, resolved. Continue reglan 8. Nutrition: renal diet 9. Prophylaxis: sq heparin 10. at bedside. Updated on pt condition and plan of care. 11. Disposition: possible transfer out of ICU later today.
[2019-07-22] MEDS ORDERED: POTASSIUM CHLORIDE 10 MEQ CAPSULE.ER PO ONE (09:00)
[2019-07-22] MEDS: VALSARTAN 160 MG TABLET PO SCH (09:19)
[2019-07-22] MEDS: METOCLOPRAMIDE HCL INJ/PF 10 MG/2 ML SDV IV SCH ×2 (09:20→21:46)
[2019-07-22] MEDS: FUROSEMIDE 40 MG TABLET PO SCH ×2 (09:20→17:49)
[2019-07-22] MEDS: CALCITRIOL 0.25 MCG CAPSULE PO SCH (09:20)
[2019-07-22] MEDS: METOPROLOL TARTRATE 100 MG TABLET PO SCH ×2 (09:20→21:48)
[2019-07-22] MEDS: ASPIRIN 81 MG TABLET, ENT COATED PO SCH (09:20)
[2019-07-22] MEDS: HEPARIN SOD (PORCINE) 5,000 UNIT/ML 1 ML VIAL SUBCUT SCH ×3 (09:21→21:48)
--- NOTE | 2019-07-22 09:35 | RADIOLOGY REPORT (SQ) ---
EXAM DESCRIPTION: MRA PELVIS WITHOUT COMPLETED DATE/TIME: 07/21/2019 10:47 pm REASON FOR STUDY: severe hypertension.r/o KARLY. COMPARISON: None. TECHNIQUE: Axial T2 fat sat and non- contrast respiratory- triggered steady state free precession (S SFP) pulse sequences of the abdomen were obtained without intravenous contrast. CONTRAST TYPE AND DOSE: None. RENAL FUNCTION: N/A. LIMITATIONS: None. FINDINGS: AORTA:No abdominal aortic dissection or aneurysmal dilatation. MESENTERIC VESSELS:The celiac, SMA, and JOAQUIN are patent. RENAL ARTERIES:No stenosis, contour abnormality or dissection. ABDOMINAL ORGANS: Sludge within the gallbladder lumen. OTHER: Right pleural effusion. IMPRESSION: No renal artery stenosis, dissection or contour abnormality. TECHNICAL DOCUMENTATION: JOB ID: [id number] [employer]- All Rights Reserved Reading location - IP/workstation name: [email or web address]
[2019-07-22] MEDS ORDERED: NIFEDIPINE 30 MG TAB.ER.24 PO SCH (10:00)
[2019-07-22] MEDS: INSULIN GLARGINE,HUM.REC.ANLOG 1,000 UNIT/10 ML VIAL SUBCUT SCH (10:03)
[2019-07-22] MEDS: AMOXICILLIN TR/POT CLAVULANATE 250-125 MG TAB PO SCH ×2 (10:03→21:48)
[2019-07-22] MEDS: ONDANSETRON HCL INJ/PF 4 MG/2 ML SDV IV PRN (14:20)
[2019-07-22 14:39] LABS: URINE CREATININE 75.8 mg/dL (15-278)
[2019-07-22 14:46] LABS: UR PRO/CREAT RATIO RESULT 6.9 mg/mg (0.0-0.2); URINE PROTEIN 522.9 mg/dL (<12)
[2019-07-23] MEDS: METOPROLOL TARTRATE PF/INJ 5 MG/5 ML SDV IV PRN ×3 (01:39→20:59)
[2019-07-23] MEDS: HYDRALAZINE HCL INJ/PF 20 MG/1 ML SDV IV PRN ×2 (02:34→06:44)
[2019-07-23 04:38] LABS: ABSOLUTE BASOPHILS # (AUTO) 0.1 10^3/uL (0.0-0.2); ABSOLUTE EOSINOPHILS # (AUTO) 0.5 10^3/uL (0.0-0.6); ABSOLUTE LYMPHOCYTES (AUTO) 1.4 10^3/uL (0.5-4.7); ABSOLUTE NEUT (AUTO) 3.7 10^3/uL (1.7-8.2); BASOPHILS % (AUTO) 1.2 % (0-2); EOSINOPHILS % (AUTO) 7.3 % (0-6); HEMATOCRIT 25.2 % (36.0-47.0); HEMOGLOBIN 8.3 g/dL (12.0-15.5); LYMPHOCYTES % (AUTO) 21.1 % (13-45); MEAN CORPUSCULAR HEMOGLOBIN 24.9 pg (27.0-33.4); MEAN CORPUSCULAR HGB CONC 32.7 g/dL (32.0-36.0); MEAN CORPUSCULAR VOLUME 76 fl (80-97); MONOCYTES % (AUTO) 14.8 % (3-13); PLATELET COUNT 196 10^3/uL (150-450); RED BLOOD COUNT 3.31 10^6/uL (3.72-5.28); RED CELL DISTRIBUTION WIDTH 16.4 % (11.5-14.0); SEGMENTED NEUTROPHILS % (AUTO) 55.6 % (42-78); TOTAL CELLS COUNTED % (AUTO) 100 %; WHITE BLOOD COUNT 6.7 10^3/uL (4.0-10.5)
[2019-07-23] MEDS: CLONIDINE HCL 0.2 MG TABLET PO SCH ×3 (05:42→20:59)
[2019-07-23] MEDS: HYDRALAZINE HCL 50 MG TABLET PO SCH ×3 (05:43→21:00)
[2019-07-23] MEDS: HEPARIN SOD (PORCINE) 5,000 UNIT/ML 1 ML VIAL SUBCUT SCH ×3 (05:43→22:27)
[2019-07-23] MEDS: INSULIN LISPRO 100 UNIT/ML 3 ML VIAL SUBCUT SCH ×4 (08:47→22:27)
--- NOTE | 2019-07-23 08:57 | PDOC PROGRESS REPORT ---
Subjective Progress Note for:: 07/23/19 Subjective:: Critical Care Progress Note Pt remains in ICU awaiting a tele-bed. She remains hypertensive with an SBP in the 180s. states she has not had a BM in 5 days Reason For Visit: HYPERTENSIVE URGENCY AND ENCEPHALOPATHY Physical Exam Vital Signs: Temp Pulse Resp BP Pulse Ox 98.7 F 61 12 168/69 H 97 07/23/19 08:00 07/23/19 08:00 07/23/19 08:00 07/23/19 08:00 07/23/19 08:00 Intake & Output 07/22/19 07/23/19 07/24/19 06:59 06:59 06:59 Intake Total 1037 Output Total 520 1145 30 Balance 517 -1145 -30 Weight 85.4 kg General appearance: PRESENT: no acute distress, well-developed, well-nourished Respiratory exam: PRESENT: clear to auscultation jeanette, unlabored Cardiovascular exam: PRESENT: RRR GI/Abdominal exam: PRESENT: soft Extremities exam: PRESENT: other - no edema Results Laboratory Results: 07/23/19 04:08 07/22/19 03:58 07/22/19 07/23/19 03:58 04:08 WBC 6.7 RBC 3.31 L Hgb 8.3 L Hct 25.2 L MCV 76 L MCH 24.9 L MCHC 32.7 RDW 16.4 H Plt Count 196 Seg Neutrophils % 55.6 Magnesium 1.8 07/18/19 07/18/19 21:40 21:40 Troponin I 0.049 NT-Pro-B Natriuret Pep [id number] H Impressions: Head CT 07/18/19 20:40 IMPRESSION: No acute finding. Pelvis MRA 07/21/19 00:00 IMPRESSION: No renal artery stenosis, dissection or contour abnormality. Assessment & Plan - Diagnosis (1) Hypertensive urgency Is this a current diagnosis for this admission?: Yes (3) Diabetes mellitus type 2 in obese Is this a current diagnosis for this admission?: Yes (4) Gastroparesis Is this a current diagnosis for this admission?: Yes (5) Encephalopathy acute Is this a current diagnosis for this admission?: Yes (6) UTI (urinary tract infection), bacterial Is this a current diagnosis for this admission?: Yes - Time Time Spent with patient: 15-24 minutes Level of Care: ICU Provider Note Provider Note: Assessment: 73 yo woman with hypertensive urgency, DM, CKD IV, gastroparesis, hypertensive encephalopathy. Plan: 1. Respiratory: stable on RA 2. CV: hypertensive urgency, resolving. Off Cardene drip. Still with uncontrolled HTN. SBP in the 180s. Is on clonidine, hydralazine, lopressor, lasix, procardia, valsartan. WIll increase the procardia XL to [address] art imdur 3.Renal: CKD Stage IV. Renal following. MRA of kidneys negative 4. ID: E.coli UTI, POA. Day 2 augmentin 5.Neuro: hypertensive encephalopathy, resolved 6. Endocrine: type II DM. Lantus. Accuchecks, SSI 7 GI: diabetic gastroparesis, resolved. Continue reglan prn. Pt now with constipation. Will give lactulose 8. Nutrition: renal diet 9. Prophylaxis: sq heparin 10. at bedside. Updated on pt condition and plan of care. 11. Disposition: Awaiting transfer to telemetry bed..
[2019-07-23] MEDS: ASPIRIN 81 MG TABLET, ENT COATED PO SCH (09:47)
[2019-07-23] MEDS: NIFEDIPINE 30 MG TAB.ER.24 PO SCH (09:47)
[2019-07-23] MEDS: LACTULOSE SYRUP 20 GM/30 ML UDCUP PO SCH (09:47)
[2019-07-23] MEDS: METOPROLOL TARTRATE 100 MG TABLET PO SCH ×2 (09:48→22:27)
[2019-07-23] MEDS: ISOSORBIDE MONONITRATE 30 MG TAB.ER.24H PO SCH (09:49)
[2019-07-23] MEDS: CALCITRIOL 0.25 MCG CAPSULE PO SCH (09:49)
[2019-07-23] MEDS: FUROSEMIDE 40 MG TABLET PO SCH ×2 (09:49→17:12)
[2019-07-23] MEDS: VALSARTAN 160 MG TABLET PO SCH (09:50)
[2019-07-23] MEDS: METOCLOPRAMIDE HCL INJ/PF 10 MG/2 ML SDV IV SCH ×2 (09:50→22:27)
[2019-07-23] MEDS: INSULIN GLARGINE,HUM.REC.ANLOG 1,000 UNIT/10 ML VIAL SUBCUT SCH (09:51)
[2019-07-23] MEDS: AMOXICILLIN TR/POT CLAVULANATE 250-125 MG TAB PO SCH ×2 (09:53→22:30)
[2019-07-23 10:19] LABS: ANION GAP 8 (5-19); BLOOD UREA NITROGEN 52 mg/dL (7-20); CALCIUM 7.6 mg/dL (8.4-10.2); CARBON DIOXIDE 21 mmol/L (22-30); CHLORIDE 107 mmol/L (98-107); GLUCOSE 128 mg/dL (75-110); POTASSIUM 3.7 mmol/L (3.6-5.0)
--- NOTE | 2019-07-23 17:39 | PDOC PROGRESS REPORT ---
Subjective Progress Note for:: 07/23/19 Subjective:: The patient is resting comfortably in the ICU although she was downgraded already. Her is at bedside. Her blood pressure seems to be better controlled today on current oral blood pressure regimen. Patient and confirms that she has been compliant with her blood pressure medications at home but when they check it her blood pressure still ranges anywhere between 170- 200/80 to 90s and infrequently systolic blood pressure can go down to 160 and a very good day. She states that she drinks fluids and has good urine output and claims that she follows low-salt diet. She denies any symptoms of fatigue and loss of appetite prior to this admission. Patient's MRA of renal arteries reveals no renal artery stenosis. Her thyroid functions are within normal limits. She has been worked up for secondary causes of hypertension a couple of times in the past which reveals negative results or either inconclusive results. Reason For Visit: HYPERTENSIVE URGENCY AND ENCEPHALOPATHY Physical Exam Vital Signs: Temp Pulse Resp BP Pulse Ox 99.0 F 66 13 165/65 H 98 07/23/19 12:00 07/23/19 12:00 07/23/19 12:00 07/23/19 12:00 07/23/19 12:00 Intake & Output 07/22/19 07/23/19 07/24/19 06:59 06:59 06:59 Intake Total 1037 410 Output Total 520 1145 305 Balance 517 -1145 105 Weight 85.4 kg Exam: General appearance: PRESENT: no acute distress, cooperative, well-developed, well-nourished Head exam: PRESENT: atraumatic, normocephalic Eye exam: PRESENT: conjunctiva slightly pale, PERRLA. ABSENT: scleral icterus Neck exam: ABSENT: JVD Respiratory exam: PRESENT: Diminished breath sounds. ABSENT: crackles, rales, rhonchi, unlabored, wheezes Cardiovascular exam: PRESENT: Regular rate rhythm -+S1, +S2. ABSENT: diastolic murmur, systolic murmur GI/Abdominal exam: PRESENT: normal bowel sounds, soft. ABSENT: guarding, mass, tenderness Extremities exam: ABSENT: No edema Neurological exam: PRESENT: alert, awake, oriented to person, place and time. Skin exam: PRESENT: dry, warm, Cardiovascular exam: PRESENT: +S1, +S2 GI/Abdominal exam: PRESENT: normal bowel sounds, soft. ABSENT: organomegaly, tenderness Results Laboratory Results: 07/23/19 04:08 07/23/19 09:32 07/23/19 07/23/19 04:08 09:32 WBC 6.7 RBC 3.31 L Hgb 8.3 L Hct 25.2 L MCV 76 L MCH 24.9 L MCHC 32.7 RDW 16.4 H Plt Count 196 Seg Neutrophils % 55.6 Sodium 136.1 L Potassium 3.7 Chloride 107 Carbon Dioxide 21 L Anion Gap 8 BUN 52 H Creatinine 4.57 H Est GFR ( Amer) 11 L Glucose 128 H Calcium 7.6 L 07/18/19 07/18/19 21:40 21:40 Troponin I 0.049 NT-Pro-B Natriuret Pep [id number] H Impressions: Head CT 07/18/19 20:40 IMPRESSION: No acute finding. Pelvis MRA 07/21/19 00:00 IMPRESSION: No renal artery stenosis, dissection or contour abnormality. 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 Patient's kidney function has not really significantly changed since admission. She is currently nonoliguric and currently no indication for initiation of renal replacement therapy yet. However I talked with the patient and her at length today about the possibility of requiring renal replacement therapy very soon if the trend continues. She understood. (2) Hypertensive urgency Is this a current diagnosis for this admission?: Yes Plan: Blood pressures currently improved with current blood pressure regimen. Continue the same. No evidence of renal artery stenosis via MRA and previous Doppler of renal arteries in the past. Work-up for secondary causes of hypertension has been negative a couple of times in the past as well. (3) Encephalopathy acute Is this a current diagnosis for this admission?: Yes Plan: Improving and currently at baseline. (4) UTI (urinary tract infection), bacterial Is this a current diagnosis for this admission?: Yes Plan: Secondary to E. coli. Patient started on Augmentin per plant technician. (5) Anemia in chronic kidney disease (CKD) Qualifiers: Chronic kidney disease stage: stage 4 (severe) Qualified Code(s): N18.4 - Chronic kidney disease, stage 4 (severe); D63.1 - Anemia in chronic kidney disease Is this a current diagnosis for this admission?: Yes Plan: Likely also in combination with known iron deficiency anemia in the past. I will recheck her iron studies and give her iron and or Procrit appropriately. (6) Gastroparesis Is this a current diagnosis for this admission?: Yes (7) Secondary hyperparathyroidism (of renal origin) Is this a current diagnosis for this admission?: Yes Plan: Continue calcitriol. (8) Type 2 diabetes mellitus Qualifiers: Diabetes mellitus jail insulin use: without jail use Diabetes mellitus complication status: with kidney complications Diabetes mellitus complication detail: with nephropathy Qualified Code(s): E11.21 - Type 2 diabetes mellitus with diabetic nephropathy Is this a current diagnosis for this admission?: Yes - Time Time with patient: 15-25 minutes
[2019-07-24] MEDS: HYDRALAZINE HCL INJ/PF 20 MG/1 ML SDV IV PRN ×2 (03:20→18:40)
[2019-07-24] MEDS ORDERED: DIPHENHYDRAMINE HCL 50 MG CAPSULE PO ONE (04:30)
[2019-07-24 04:54] LABS: ABSOLUTE BASOPHILS # (AUTO) 0.1 10^3/uL (0.0-0.2); ABSOLUTE EOSINOPHILS # (AUTO) 0.7 10^3/uL (0.0-0.6); ABSOLUTE LYMPHOCYTES (AUTO) 1.2 10^3/uL (0.5-4.7); ABSOLUTE MONOCYTES (AUTO) 1.2 10^3/uL (0.1-1.4); ABSOLUTE NEUT (AUTO) 6.4 10^3/uL (1.7-8.2); ABSOLUTE RETICS # 0.098 10^6/uL (0.028-0.122); BASOPHILS % (AUTO) 1.1 % (0-2); EOSINOPHILS % (AUTO) 7.9 % (0-6); HEMATOCRIT 28.9 % (36.0-47.0); HEMOGLOBIN 9.4 g/dL (12.0-15.5); LYMPHOCYTES % (AUTO) 12.1 % (13-45); MEAN CORPUSCULAR HGB CONC 32.4 g/dL (32.0-36.0); MEAN CORPUSCULAR VOLUME 77 fl (80-97); MONOCYTES % (AUTO) 12.1 % (3-13); PLATELET COUNT 256 10^3/uL (150-450); RED BLOOD COUNT 3.74 10^6/uL (3.72-5.28); RETICULOCYTE COUNT (AUTO) 2.62 % (0.66-2.85); SEGMENTED NEUTROPHILS % (AUTO) 66.8 % (42-78); TOTAL CELLS COUNTED % (AUTO) 100 %; WHITE BLOOD COUNT 9.5 10^3/uL (4.0-10.5)
[2019-07-24 05:08] LABS: ANION GAP 9 (5-19); BLOOD UREA NITROGEN 52 mg/dL (7-20); CALCIUM 8.5 mg/dL (8.4-10.2); CARBON DIOXIDE 21 mmol/L (22-30); CHLORIDE 104 mmol/L (98-107); GLUCOSE 157 mg/dL (75-110); IRON(TIBC) 68.9 ug/dL (37-170); POTASSIUM 3.8 mmol/L (3.6-5.0)
[2019-07-24] MEDS: HYDRALAZINE HCL 50 MG TABLET PO SCH ×3 (06:06→22:45)
[2019-07-24] MEDS: CLONIDINE HCL 0.2 MG TABLET PO SCH ×3 (06:06→22:46)
[2019-07-24] MEDS: HEPARIN SOD (PORCINE) 5,000 UNIT/ML 1 ML VIAL SUBCUT SCH ×3 (06:07→22:46)
[2019-07-24] MEDS: INSULIN LISPRO 100 UNIT/ML 3 ML VIAL SUBCUT SCH ×4 (09:18→22:44)
[2019-07-24] MEDS: VALSARTAN 160 MG TABLET PO SCH (09:19)
[2019-07-24] MEDS: METOPROLOL TARTRATE 100 MG TABLET PO SCH ×2 (09:20→22:45)
[2019-07-24] MEDS: FUROSEMIDE 40 MG TABLET PO SCH ×2 (09:20→18:41)
[2019-07-24] MEDS: ISOSORBIDE MONONITRATE 30 MG TAB.ER.24H PO SCH (09:20)
[2019-07-24] MEDS: AMOXICILLIN TR/POT CLAVULANATE 250-125 MG TAB PO SCH ×2 (09:21→22:45)
[2019-07-24] MEDS: INSULIN GLARGINE,HUM.REC.ANLOG 1,000 UNIT/10 ML VIAL SUBCUT SCH (09:21)
[2019-07-24] MEDS: METOCLOPRAMIDE HCL INJ/PF 10 MG/2 ML SDV IV SCH (09:21)
[2019-07-24] MEDS: ASPIRIN 81 MG TABLET, ENT COATED PO SCH (09:22)
[2019-07-24] MEDS: LACTULOSE SYRUP 20 GM/30 ML UDCUP PO SCH (09:26)
[2019-07-24] MEDS: CALCITRIOL 0.25 MCG CAPSULE PO SCH (09:54)
[2019-07-24] MEDS: NIFEDIPINE 30 MG TAB.ER.24 PO SCH (09:54)
[2019-07-24] MEDS: SPIRONOLACTONE 25 MG TABLET PO SCH (11:39)
[2019-07-24] MEDS: ONDANSETRON HCL INJ/PF 4 MG/2 ML SDV IV PRN (11:40)
[2019-07-24] MEDS ORDERED: EPOETIN ALFA-EPBX 10,000 UNIT/ML VIAL (NON-ESRD) SUBCUT SCH (13:00)
--- NOTE | 2019-07-24 21:27 | PDOC PROGRESS REPORT ---
Subjective Progress Note for:: 07/24/19 Subjective:: Patient was admitted when she presented with hypertensive emergency associated with encephalopathy, she required intravenous Cardene infusion which is only administered in ICU setting, she was downgraded to medical floor today. I saw her by the bedside she has spontaneous involuntary tremors of the right upper extremities, she was started on Reglan which I discontinued very quickly Reason For Visit: HYPERTENSIVE URGENCY AND ENCEPHALOPATHY Physical Exam Vital Signs: Temp Pulse Resp BP Pulse Ox 98.1 F 63 18 185/55 H 93 07/24/19 16:00 07/24/19 16:00 07/24/19 16:00 07/24/19 16:00 07/24/19 16:00 Intake & Output 07/23/19 07/24/19 07/25/19 06:59 06:59 06:59 Intake Total 1130 1000 Output Total 1145 1355 300 Balance -1145 -225 700 Weight 85.4 kg 89.2 kg 89.2 kg General appearance: PRESENT: no acute distress Eye exam: PRESENT: PERRLA Respiratory exam: PRESENT: clear to auscultation jeanette Cardiovascular exam: PRESENT: +S1, +S2 GI/Abdominal exam: PRESENT: soft Neurological exam: PRESENT: alert, CN II-XII grossly intact Results Laboratory Results: 07/24/19 04:20 07/24/19 04:20 07/24/19 07/24/19 04:20 04:20 WBC 9.5 RBC 3.74 Hgb 9.4 L Hct 28.9 L MCV 77 L MCH 25.0 L MCHC 32.4 RDW 17.0 H Plt Count 256 Seg Neutrophils % 66.8 Retic Count (auto) 2.62 Sodium 133.7 L Potassium 3.8 Chloride 104 Carbon Dioxide 21 L Anion Gap 9 BUN 52 H Creatinine 4.78 H Est GFR ( Amer) 11 L Glucose 157 H Calcium 8.5 Iron 68.9 TIBC 212 L % Saturation 33 Ferritin 189.00 Vitamin B12 559.0 Folate 12.70 07/19/19 04:02 Blood Blood Culture - Final NO GROWTH IN 5 DAYS 07/19/19 00:21 Blood Blood Culture - Final NO GROWTH IN 5 DAYS 07/18/19 07/18/19 21:40 21:40 Troponin I 0.049 NT-Pro-B Natriuret Pep [id number] H Impressions: Head CT 07/18/19 20:40 IMPRESSION: No acute finding. Pelvis MRA 07/21/19 00:00 IMPRESSION: No renal artery stenosis, dissection or contour abnormality. Assessment & Plan - Diagnosis (1) Hypertensive emergency Is this a current diagnosis for this admission?: Yes Plan: She will continue present medication for blood pressure, nephrology is following as well (2) Encephalopathy, unspecified Is this a current diagnosis for this admission?: Yes (3) Urinary tract infection, site not specified Qualifiers: Urinary tract infection type: site unspecified Hematuria presence: without hematuria Qualified Code(s): N39.0 - Urinary tract infection, site not specified Is this a current diagnosis for this admission?: Yes (4) Chronic kidney disease, stage 4 (severe) Is this a current diagnosis for this admission?: Yes (5) E. coli UTI Is this a current diagnosis for this admission?: Yes - Time Time Spent with patient: 35 or more minutes Level of Care: MEDICAL
--- NOTE | 2019-07-24 22:32 | PDOC PROGRESS REPORT ---
Subjective Progress Note for:: 07/24/19 Subjective:: I saw the patient is morning. She is sitting comfortably in a chair. She has some noticeable involuntary right hand tremor which she claims she can control. She was started on Reglan. She made an adequate amount of urine output of 1355 mL. Blood pressure still fluctuates. Reason For Visit: HYPERTENSIVE URGENCY AND ENCEPHALOPATHY Physical Exam Vital Signs: Temp Pulse Resp BP Pulse Ox 98.0 F 64 19 168/51 H 94 07/24/19 08:00 07/24/19 08:00 07/24/19 08:00 07/24/19 08:00 07/24/19 08:00 Intake & Output 07/23/19 07/24/19 07/25/19 06:59 06:59 06:59 Intake Total 1130 Output Total 1145 1355 Balance -1145 -225 Weight 85.4 kg 89.2 kg Exam: General appearance: PRESENT: no acute distress, cooperative, well-developed, well-nourished Head exam: PRESENT: atraumatic, normocephalic Eye exam: PRESENT: conjunctiva slightly pale, PERRLA. ABSENT: scleral icterus Neck exam: ABSENT: JVD Respiratory exam: PRESENT: Normal breath sounds. ABSENT: crackles, rales, rhonchi, unlabored, wheezes Cardiovascular exam: PRESENT: Regular rate rhythm -+S1, +S2. ABSENT: diastolic murmur, systolic murmur GI/Abdominal exam: PRESENT: normal bowel sounds, soft. ABSENT: guarding, mass, tenderness Extremities exam: Positive right arm edema, no grade 1 lower extremity pitting edema Neurological exam: PRESENT: alert, awake, oriented to person, place and time. She has right hand involuntary tremors Skin exam: PRESENT: dry, warm, Cardiovascular exam: PRESENT: +S1, +S2 GI/Abdominal exam: PRESENT: normal bowel sounds, soft. ABSENT: organomegaly, tenderness Results Laboratory Results: 07/24/19 04:20 07/24/19 04:20 07/24/19 07/24/19 04:20 04:20 WBC 9.5 RBC 3.74 Hgb 9.4 L Hct 28.9 L MCV 77 L MCH 25.0 L MCHC 32.4 RDW 17.0 H Plt Count 256 Seg Neutrophils % 66.8 Retic Count (auto) 2.62 Sodium 133.7 L Potassium 3.8 Chloride 104 Carbon Dioxide 21 L Anion Gap 9 BUN 52 H Creatinine 4.78 H Est GFR ( Amer) 11 L Glucose 157 H Calcium 8.5 Iron 68.9 TIBC 212 L % Saturation 33 Ferritin 189.00 Vitamin B12 559.0 Folate 12.70 07/19/19 04:02 Blood Blood Culture - Final NO GROWTH IN 5 DAYS 07/19/19 00:21 Blood Blood Culture - Final NO GROWTH IN 5 DAYS 07/18/19 07/18/19 21:40 21:40 Troponin I 0.049 NT-Pro-B Natriuret Pep [id number] H Impressions: Head CT 07/18/19 20:40 IMPRESSION: No acute finding. Pelvis MRA 07/21/19 00:00 IMPRESSION: No renal artery stenosis, dissection or contour abnormality. 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 Patient's kidney function has not really significantly changed since admission. She is currently nonoliguric and currently no indication for initiation of renal replacement therapy yet. However I talked with the patient and her at length today about the possibility of requiring renal replacement therapy very soon if the trend continues. She understood. (2) Hypertensive urgency Is this a current diagnosis for this admission?: Yes Plan: Blood pressures currently improved with current blood pressure regimen. Continue the same. No evidence of renal artery stenosis via MRA and previous Doppler of renal arteries in the past. Work-up for secondary causes of hypertension has been negative a couple of times in the past as well. Add spironolactone 25 mg daily. (3) Encephalopathy acute Is this a current diagnosis for this admission?: Yes Plan: Improving and currently at baseline. (4) UTI (urinary tract infection), bacterial Is this a current diagnosis for this admission?: Yes Plan: Secondary to E. coli. Patient started on Augmentin . (5) Anemia in chronic kidney disease (CKD) Qualifiers: Chronic kidney disease stage: stage 4 (severe) Qualified Code(s): N18.4 - Chronic kidney disease, stage 4 (severe); D63.1 - Anemia in chronic kidney disease Is this a current diagnosis for this admission?: Yes Plan: Likely also in combination with known iron deficiency anemia in the past. Her iron studies are adequate. We will give her Procrit 20,000 units subcutaneously today and q. weekly which needs to be continued as an outpatient. (6) Gastroparesis Is this a current diagnosis for this admission?: Yes (7) Secondary hyperparathyroidism (of renal origin) Is this a current diagnosis for this admission?: Yes Plan: Continue calcitriol. (8) Tremor of right hand Is this a current diagnosis for this admission?: Yes Plan: Possibly due to metoclopramide. Needs to be discontinued. (9) Type 2 diabetes mellitus Qualifiers: Diabetes mellitus intermodal customer service insulin use: without intermodal customer service use Diabetes mellitus complication status: with kidney complications Diabetes mellitus complication detail: with nephropathy Qualified Code(s): E11.21 - Type 2 diabetes mellitus with diabetic nephropathy Is this a current diagnosis for this admission?: Yes - Time Time with patient: 15-25 minutes
[2019-07-25 05:30] LABS: ABSOLUTE BASOPHILS # (AUTO) 0.1 10^3/uL (0.0-0.2); ABSOLUTE EOSINOPHILS # (AUTO) 0.6 10^3/uL (0.0-0.6); ABSOLUTE LYMPHOCYTES (AUTO) 1.3 10^3/uL (0.5-4.7); ABSOLUTE MONOCYTES (AUTO) 1.4 10^3/uL (0.1-1.4); ABSOLUTE NEUT (AUTO) 6.6 10^3/uL (1.7-8.2); BASOPHILS % (AUTO) 0.6 % (0-2); EOSINOPHILS % (AUTO) 6.1 % (0-6); HEMATOCRIT 23.7 % (36.0-47.0); LYMPHOCYTES % (AUTO) 13.1 % (13-45); MEAN CORPUSCULAR HEMOGLOBIN 25.9 pg (27.0-33.4); MEAN CORPUSCULAR HGB CONC 33.2 g/dL (32.0-36.0); MEAN CORPUSCULAR VOLUME 78 fl (80-97); MONOCYTES % (AUTO) 14.3 % (3-13); PLATELET COUNT 214 10^3/uL (150-450); RED BLOOD COUNT 3.03 10^6/uL (3.72-5.28); RED CELL DISTRIBUTION WIDTH 17.3 % (11.5-14.0); SEGMENTED NEUTROPHILS % (AUTO) 65.9 % (42-78); TOTAL CELLS COUNTED % (AUTO) 100 %
[2019-07-25 05:35] LABS: HEMOGLOBIN 7.9 g/dL (12.0-15.5)
[2019-07-25 05:37] LABS: ANION GAP 6 (5-19); BLOOD UREA NITROGEN 47 mg/dL (7-20); CALCIUM 8.2 mg/dL (8.4-10.2); CARBON DIOXIDE 23 mmol/L (22-30); CHLORIDE 106 mmol/L (98-107); GLUCOSE 105 mg/dL (75-110); POTASSIUM 3.7 mmol/L (3.6-5.0)
[2019-07-25] MEDS: CLONIDINE HCL 0.2 MG TABLET PO SCH ×2 (06:16→14:43)
[2019-07-25] MEDS: HYDRALAZINE HCL 50 MG TABLET PO SCH ×3 (06:16→22:33)
[2019-07-25] MEDS: HEPARIN SOD (PORCINE) 5,000 UNIT/ML 1 ML VIAL SUBCUT SCH ×3 (06:17→22:34)
[2019-07-25] MEDS: INSULIN LISPRO 100 UNIT/ML 3 ML VIAL SUBCUT SCH ×4 (08:25→22:34)
[2019-07-25] MEDS: LACTULOSE SYRUP 20 GM/30 ML UDCUP PO SCH (09:04)
[2019-07-25] MEDS: ISOSORBIDE MONONITRATE 30 MG TAB.ER.24H PO SCH (09:05)
[2019-07-25] MEDS: ASPIRIN 81 MG TABLET, ENT COATED PO SCH (09:05)
[2019-07-25] MEDS: METOPROLOL TARTRATE 100 MG TABLET PO SCH ×2 (09:05→22:33)
[2019-07-25] MEDS: FUROSEMIDE 40 MG TABLET PO SCH ×2 (09:05→17:31)
[2019-07-25] MEDS: SPIRONOLACTONE 25 MG TABLET PO SCH (09:05)
[2019-07-25] MEDS: VALSARTAN 160 MG TABLET PO SCH (09:06)
[2019-07-25] MEDS: NIFEDIPINE 30 MG TAB.ER.24 PO SCH (09:06)
[2019-07-25] MEDS: AMOXICILLIN TR/POT CLAVULANATE 250-125 MG TAB PO SCH ×2 (09:06→22:33)
[2019-07-25] MEDS: INSULIN GLARGINE,HUM.REC.ANLOG 1,000 UNIT/10 ML VIAL SUBCUT SCH (09:06)
[2019-07-25] MEDS: METOPROLOL TARTRATE PF/INJ 5 MG/5 ML SDV IV PRN ×2 (09:07→17:31)
[2019-07-25] MEDS: CALCITRIOL 0.25 MCG CAPSULE PO SCH (09:07)
[2019-07-25] MEDS: HYDRALAZINE HCL INJ/PF 20 MG/1 ML SDV IV PRN (12:25)
[2019-07-25] MEDS: ONDANSETRON HCL INJ/PF 4 MG/2 ML SDV IV PRN (14:43)
--- NOTE | 2019-07-25 16:23 | PDOC PROGRESS REPORT ---
Subjective Progress Note for:: 07/25/19 Subjective:: Patient so far stable. Blood pressure still fluctuates anywhere between 150s to 180s over 50 to 90s. Her right hand tremor seems to be improving a little bit. Her urine output is adequate at 950 mL for the past 24 hours. Reason For Visit: HYPERTENSIVE URGENCY AND ENCEPHALOPATHY Physical Exam Vital Signs: Temp Pulse Resp BP Pulse Ox 98.7 F 70 17 199/83 H 94 07/25/19 10:49 07/25/19 10:49 07/25/19 10:49 07/25/19 10:49 07/25/19 10:49 Intake & Output 07/24/19 07/25/19 07/26/19 06:59 06:59 06:59 Intake Total 1130 1000 Output Total 1355 950 Balance -225 50 Weight 89.2 kg 85.8 kg Exam: General appearance: PRESENT: no acute distress, cooperative, well-developed, well-nourished Head exam: PRESENT: atraumatic, normocephalic Eye exam: PRESENT: conjunctiva pale, PERRLA. ABSENT: scleral icterus Neck exam: ABSENT: JVD Respiratory exam: PRESENT: Normal breath sounds. ABSENT: crackles, rales, rhonchi, unlabored, wheezes Cardiovascular exam: PRESENT: Regular rate rhythm -+S1, +S2. ABSENT: diastolic murmur, systolic murmur GI/Abdominal exam: PRESENT: normal bowel sounds, soft. ABSENT: guarding, mass, tenderness Extremities exam: Grade 1 bilateral lower extremity pitting edema, right arm swelling is significantly improved today. Neurological exam: PRESENT: alert, awake, oriented to person, place and time. Right hand tremors is slightly improved. Skin exam: PRESENT: dry, warm, Cardiovascular exam: PRESENT: +S1, +S2 GI/Abdominal exam: PRESENT: normal bowel sounds, soft. ABSENT: organomegaly, tenderness Results Laboratory Results: 07/25/19 04:40 07/25/19 04:40 07/25/19 07/25/19 04:40 04:40 WBC 10.0 RBC 3.03 L Hgb 7.9 L Hct 23.7 L MCV 78 L MCH 25.9 L MCHC 33.2 RDW 17.3 H Plt Count 214 Seg Neutrophils % 65.9 Sodium 135.4 L Potassium 3.7 Chloride 106 Carbon Dioxide 23 Anion Gap 6 BUN 47 H Creatinine 4.72 H Est GFR ( Amer) 11 L Glucose 105 Calcium 8.2 L 07/18/19 07/18/19 21:40 21:40 Troponin I 0.049 NT-Pro-B Natriuret Pep [id number] H Impressions: Head CT 07/18/19 20:40 IMPRESSION: No acute finding. Pelvis MRA 07/21/19 00:00 IMPRESSION: No renal artery stenosis, dissection or contour abnormality. Assessment & Plan - Diagnosis (1) CKD (chronic kidney disease) stage 5, GFR less than 15 ml/min Is this a current diagnosis for this admission?: Yes Plan: Patient has chronic progressively deteriorating kidney disease secondary to diabetic nephropathy and hypertensive nephrosclerosis associated with known nephrotic range proteinuria (urine protein to creatinine ratio of 6.9) which mo st likely continues to get worse because of uncontrolled hypertension as well. Patient's kidney function has not really significantly changed since admission. She is currently nonoliguric and currently no indication for initiation of renal replacement therapy yet. However I talked with the patient and her at length today about the possibility of requiring renal replacement therapy very soon if the trend continues. She understood. (2) Hypertensive urgency Is this a current diagnosis for this admission?: Yes Plan: Blood pressures currently improved with current blood pressure regimen. Continue the same. No evidence of renal artery stenosis via MRA and previous Doppler of renal arteries in the past. Work-up for secondary causes of hypertension has been negative a couple of times in the past as well. Add spironolactone 25 mg daily. (3) Encephalopathy acute Is this a current diagnosis for this admission?: Yes Plan: Resolved and currently at baseline. (4) UTI (urinary tract infection), bacterial Is this a current diagnosis for this admission?: Yes Plan: Secondary to E. coli. Patient started on Augmentin . (5) Anemia in chronic kidney disease (CKD) Qualifiers: Chronic kidney disease stage: stage 4 (severe) Qualified Code(s): N18.4 - Chronic kidney disease, stage 4 (severe); D63.1 - Anemia in chronic kidney disease Is this a current diagnosis for this admission?: Yes Plan: Likely also in combination with known iron deficiency anemia in the past. Her iron studies are adequate. She received Procrit 20,000 units subcutaneously yesterday and should be continued weekly or every 2 weeks either inpatient or outpatient. (6) Gastroparesis Is this a current diagnosis for this admission?: Yes (7) Secondary hyperparathyroidism (of renal origin) Is this a current diagnosis for this admission?: Yes Plan: Continue calcitriol. (8) Tremor of right hand Is this a current diagnosis for this admission?: Yes Plan: Possibly due to metoclopramide, currently discontinued. (9) Type 2 diabetes mellitus Qualifiers: Diabetes mellitus medical terminologist insulin use: without medical terminologist use Diabetes mellitus complication status: with kidney complications Diabetes mellitus complication detail: with nephropathy Qualified Code(s): E11.21 - Type 2 diabetes mellitus with diabetic nephropathy Is this a current diagnosis for this admission?: Yes - Time Time with patient: 15-25 minutes
--- NOTE | 2019-07-25 21:46 | PDOC PROGRESS REPORT ---
Subjective Progress Note for:: 07/25/19 Subjective:: Patient seen by the bedside, her blood pressure continues to fluctuate very widely,She has progressive chronic kidney disease, Presently chronic kidney disease stage V. Patient still noticed to have tremor somewhat better Reason For Visit: HYPERTENSIVE URGENCY AND ENCEPHALOPATHY Physical Exam Vital Signs: Temp Pulse Resp BP Pulse Ox 98.7 F 69 17 141/42 H 94 07/25/19 15:50 07/25/19 15:09 07/25/19 15:50 07/25/19 18:02 07/25/19 10:49 Intake & Output 07/24/19 07/25/19 07/26/19 06:59 06:59 06:59 Intake Total 1130 1000 1090 Output Total 1355 950 Balance -600 95 8633 Weight 89.2 kg 85.8 kg General appearance: PRESENT: no acute distress Eye exam: PRESENT: PERRLA Respiratory exam: PRESENT: clear to auscultation jeanette Cardiovascular exam: PRESENT: +S1, +S2 GI/Abdominal exam: PRESENT: soft Neurological exam: PRESENT: alert Results Laboratory Results: 07/25/19 04:40 07/25/19 04:40 07/25/19 07/25/19 04:40 04:40 WBC 10.0 RBC 3.03 L Hgb 7.9 L Hct 23.7 L MCV 78 L MCH 25.9 L MCHC 33.2 RDW 17.3 H Plt Count 214 Seg Neutrophils % 65.9 Sodium 135.4 L Potassium 3.7 Chloride 106 Carbon Dioxide 23 Anion Gap 6 BUN 47 H Creatinine 4.72 H Est GFR ( Amer) 11 L Glucose 105 Calcium 8.2 L 07/18/19 07/18/19 21:40 21:40 Troponin I 0.049 NT-Pro-B Natriuret Pep [id number] H Impressions: Head CT 07/18/19 20:40 IMPRESSION: No acute finding. Pelvis MRA 07/21/19 00:00 IMPRESSION: No renal artery stenosis, dissection or contour abnormality. Assessment & Plan - Diagnosis (1) Hypertensive emergency Is this a current diagnosis for this admission?: Yes (2) Encephalopathy, unspecified Is this a current diagnosis for this admission?: Yes (3) Urinary tract infection, site not specified Qualifiers: Urinary tract infection type: site unspecified Hematuria presence: without hematuria Qualified Code(s): N39.0 - Urinary tract infection, site not specified Is this a current diagnosis for this admission?: Yes (4) Chronic kidney disease, stage 4 (severe) Is this a current diagnosis for this admission?: Yes (5) E. coli UTI Is this a current diagnosis for this admission?: Yes Plan: Continue antibiotic - Time Time Spent with patient: 35 or more minutes Level of Care: MEDICAL - Plan Summary Plan Summary: Patient not ready for discharge at she is still requiring IV antihypertensive medication
[2019-07-25] MEDS ORDERED: DOXAZOSIN MESYLATE 2 MG TABLET PO SCH (22:00)
[2019-07-26] MEDS: CLONIDINE HCL 0.2 MG TABLET PO SCH ×4 (05:27→17:03)
[2019-07-26] MEDS: HYDRALAZINE HCL 50 MG TABLET PO SCH ×3 (05:54→21:30)
[2019-07-26] MEDS: HEPARIN SOD (PORCINE) 5,000 UNIT/ML 1 ML VIAL SUBCUT SCH ×3 (05:55→21:28)
[2019-07-26 07:00] LABS: ABSOLUTE BASOPHILS # (AUTO) 0.1 10^3/uL (0.0-0.2); ABSOLUTE EOSINOPHILS # (AUTO) 0.7 10^3/uL (0.0-0.6); ABSOLUTE LYMPHOCYTES (AUTO) 1.3 10^3/uL (0.5-4.7); ABSOLUTE MONOCYTES (AUTO) 1.2 10^3/uL (0.1-1.4); ABSOLUTE NEUT (AUTO) 5.8 10^3/uL (1.7-8.2); BASOPHILS % (AUTO) 0.9 % (0-2); EOSINOPHILS % (AUTO) 7.3 % (0-6); HEMATOCRIT 25.6 % (36.0-47.0); HEMOGLOBIN 8.4 g/dL (12.0-15.5); LYMPHOCYTES % (AUTO) 14.6 % (13-45); MEAN CORPUSCULAR HEMOGLOBIN 25.6 pg (27.0-33.4); MEAN CORPUSCULAR HGB CONC 32.9 g/dL (32.0-36.0); MEAN CORPUSCULAR VOLUME 78 fl (80-97); MONOCYTES % (AUTO) 13.4 % (3-13); PLATELET COUNT 259 10^3/uL (150-450); RED BLOOD COUNT 3.28 10^6/uL (3.72-5.28); RED CELL DISTRIBUTION WIDTH 17.2 % (11.5-14.0); SEGMENTED NEUTROPHILS % (AUTO) 63.8 % (42-78); TOTAL CELLS COUNTED % (AUTO) 100 %; WHITE BLOOD COUNT 9.1 10^3/uL (4.0-10.5)
[2019-07-26 07:04] LABS: ANION GAP 10 (5-19); BLOOD UREA NITROGEN 44 mg/dL (7-20); CALCIUM 8.6 mg/dL (8.4-10.2); CARBON DIOXIDE 20 mmol/L (22-30); CHLORIDE 109 mmol/L (98-107); GLUCOSE 128 mg/dL (75-110); POTASSIUM 3.7 mmol/L (3.6-5.0)
[2019-07-26] MEDS: INSULIN LISPRO 100 UNIT/ML 3 ML VIAL SUBCUT SCH ×4 (08:40→21:44)
[2019-07-26] MEDS: FUROSEMIDE 40 MG TABLET PO SCH ×2 (10:03→17:04)
[2019-07-26] MEDS: ISOSORBIDE MONONITRATE 30 MG TAB.ER.24H PO SCH (10:03)
[2019-07-26] MEDS: METOPROLOL TARTRATE 100 MG TABLET PO SCH ×2 (10:03→21:29)
[2019-07-26] MEDS: ASPIRIN 81 MG TABLET, ENT COATED PO SCH (10:03)
[2019-07-26] MEDS: LACTULOSE SYRUP 20 GM/30 ML UDCUP PO SCH (10:05)
[2019-07-26] MEDS: NIFEDIPINE 30 MG TAB.ER.24 PO SCH (10:05)
[2019-07-26] MEDS: SPIRONOLACTONE 25 MG TABLET PO SCH (10:05)
[2019-07-26] MEDS: AMOXICILLIN TR/POT CLAVULANATE 250-125 MG TAB PO SCH ×2 (10:05→21:30)
[2019-07-26] MEDS: INSULIN GLARGINE,HUM.REC.ANLOG 1,000 UNIT/10 ML VIAL SUBCUT SCH (10:06)
[2019-07-26] MEDS: VALSARTAN 160 MG TABLET PO SCH (10:06)
[2019-07-26] MEDS: CALCITRIOL 0.25 MCG CAPSULE PO SCH (10:06)
[2019-07-26] MEDS: ONDANSETRON HCL INJ/PF 4 MG/2 ML SDV IV PRN ×3 (11:11→19:57)
[2019-07-26] MEDS: METOPROLOL TARTRATE PF/INJ 5 MG/5 ML SDV IV PRN (13:12)
--- NOTE | 2019-07-26 15:03 | PDOC PROGRESS REPORT ---
Subjective Progress Note for:: 07/26/19 Subjective:: Patient continue to demonstrate elevated blood pressure and episodes of nausea but no vomiting. No chest pain or difficulty with breathing. No reported fever or chills. Reason For Visit: HYPERTENSIVE URGENCY AND ENCEPHALOPATHY Physical Exam Vital Signs: Temp Pulse Resp BP Pulse Ox 98.5 F 66 12 182/78 H 95 07/26/19 10:51 07/26/19 10:51 07/26/19 10:51 07/26/19 10:51 07/26/19 10:51 Intake & Output 07/25/19 07/26/19 07/27/19 06:59 06:59 05:59 Intake Total 1000 1432 Output Total 950 Balance 50 1432 Weight 85.8 kg 86.2 kg General appearance: PRESENT: no acute distress, obese Head exam: PRESENT: atraumatic, normocephalic Eye exam: PRESENT: conjunctiva pink. ABSENT: scleral icterus Ear exam: PRESENT: normal external ear exam Mouth exam: PRESENT: moist Respiratory exam: PRESENT: clear to auscultation jeanette Cardiovascular exam: PRESENT: RRR. ABSENT: diastolic murmur, rubs, systolic murmur Vascular exam: ABSENT: pallor Extremities exam: ABSENT: pedal edema Neurological exam: PRESENT: alert, awake, oriented to person, oriented to place, oriented to time, oriented to situation, CN II-XII grossly intact. ABSENT: motor sensory deficit Psychiatric exam: PRESENT: appropriate affect, normal mood. ABSENT: homicidal ideation, suicidal ideation Skin exam: PRESENT: dry, warm Results Laboratory Results: 07/26/19 06:39 07/26/19 06:39 07/26/19 07/26/19 06:39 06:39 WBC 9.1 RBC 3.28 L Hgb 8.4 L Hct 25.6 L MCV 78 L MCH 25.6 L MCHC 32.9 RDW 17.2 H Plt Count 259 Seg Neutrophils % 63.8 Sodium 138.7 Potassium 3.7 Chloride 109 H Carbon Dioxide 20 L Anion Gap 10 BUN 44 H Creatinine 4.52 H Est GFR ( Amer) 12 L Glucose 128 H Calcium 8.6 07/18/19 07/18/19 21:40 21:40 Troponin I 0.049 NT-Pro-B Natriuret Pep [id number] H Impressions: Head CT 07/18/19 20:40 IMPRESSION: No acute finding. Pelvis MRA 07/21/19 00:00 IMPRESSION: No renal artery stenosis, dissection or contour abnormality. Assessment & Plan - Diagnosis (1) Encephalopathy, unspecified Is this a current diagnosis for this admission?: Yes Plan: Presently resolved. Continue efforts at blood pressure control. (2) Hypertensive emergency Is this a current diagnosis for this admission?: Yes Plan: Increase Doxazosin to 4 mg p.o daily hs. May double dose q weekly if blood pressure is not adequately controlled to max of 16 mg daily. (3) E. coli UTI Is this a current diagnosis for this admission?: Yes Plan: Continue oral Augmentin coverage. Monitor CBC with diff. (4) Diabetes mellitus type 2 in obese Is this a current diagnosis for this admission?: Yes - Time Time Spent with patient: 25-34 minutes Medications reviewed and adjusted accordingly: Yes Anticipated discharge: Home with Homehealth Within: Other - Inpatient Certification Based on my medical assessment, after consideration of the patient's comorbidities, presenting symptoms, or acuity I expect that the services needed warrant INPATIENT care.: Yes I certify that my determination is in accordance with my understanding of Medicare's requirements for reasonable and necessary INPATIENT services [42 CFR 412.3e].: Yes Medical Necessity: Significant Comorbidiites Make Outpatient Treatment Too Risky, Need Close Monitoring Due to Risk of Patient Decompensation, Need For Continuous Telemetry Monitoring, Risk of Complication if Not Cared For in Hospital, Risk of Diagnosis Which Will Require Inpatient Eval/Care/Monitoring Post Hospital Care: D/C Customs Compliance Analyst Documentation - Plan Summary Plan Summary: See covering attending physician orders for details about care plan.
[2019-07-26] MEDS: HYDRALAZINE HCL INJ/PF 20 MG/1 ML SDV IV PRN (15:32)
[2019-07-26] MEDS: DOXAZOSIN MESYLATE 4 MG TABLET PO SCH (21:29)
[2019-07-27] MEDS: ONDANSETRON HCL INJ/PF 4 MG/2 ML SDV IV PRN ×4 (01:10→17:54)
[2019-07-27] MEDS: CLONIDINE HCL 0.2 MG TABLET PO SCH ×4 (01:11→17:09)
[2019-07-27] MEDS: HEPARIN SOD (PORCINE) 5,000 UNIT/ML 1 ML VIAL SUBCUT SCH ×3 (07:31→21:45)
[2019-07-27] MEDS: HYDRALAZINE HCL 50 MG TABLET PO SCH ×3 (07:31→21:42)
[2019-07-27] MEDS: INSULIN LISPRO 100 UNIT/ML 3 ML VIAL SUBCUT SCH ×4 (08:32→21:42)
[2019-07-27] MEDS: METOPROLOL TARTRATE 100 MG TABLET PO SCH ×2 (09:30→21:45)
[2019-07-27] MEDS: ISOSORBIDE MONONITRATE 30 MG TAB.ER.24H PO SCH (09:30)
[2019-07-27] MEDS: ASPIRIN 81 MG TABLET, ENT COATED PO SCH (09:30)
[2019-07-27] MEDS: FUROSEMIDE 40 MG TABLET PO SCH ×2 (09:30→17:09)
[2019-07-27] MEDS: CALCITRIOL 0.25 MCG CAPSULE PO SCH (09:31)
[2019-07-27] MEDS: SPIRONOLACTONE 25 MG TABLET PO SCH (09:31)
[2019-07-27] MEDS: VALSARTAN 160 MG TABLET PO SCH (09:32)
[2019-07-27] MEDS: AMOXICILLIN TR/POT CLAVULANATE 250-125 MG TAB PO SCH ×2 (09:32→21:43)
[2019-07-27] MEDS: NIFEDIPINE 30 MG TAB.ER.24 PO SCH (09:32)
[2019-07-27] MEDS: LACTULOSE SYRUP 20 GM/30 ML UDCUP PO SCH (09:33)
[2019-07-27] MEDS: INSULIN GLARGINE,HUM.REC.ANLOG 1,000 UNIT/10 ML VIAL SUBCUT SCH (09:34)
[2019-07-27] MEDS: HYDRALAZINE HCL INJ/PF 20 MG/1 ML SDV IV PRN (11:25)
--- NOTE | 2019-07-27 14:46 | PDOC PROGRESS REPORT ---
Subjective Progress Note for:: 07/27/19 Subjective:: Patient denied chest pain or difficulty with breathing. No reported fever or chills. No nausea, vomiting or abdominal pain. Reason For Visit: HYPERTENSIVE URGENCY AND ENCEPHALOPATHY Physical Exam Vital Signs: Temp Pulse Resp BP Pulse Ox 97.5 F 63 20 190/79 H 96 07/27/19 11:54 07/27/19 12:01 07/27/19 11:54 07/27/19 12:01 07/27/19 12:01 Intake & Output 07/26/19 07/27/19 07/28/19 07:59 06:59 06:59 Intake Total 600 Balance 600 Weight Physical Exam: General appearance: PRESENT: no acute distress, obese Head exam: PRESENT: atraumatic, normocephalic Eye exam: PRESENT: conjunctiva pink. ABSENT: pallor, scleral icterus Ear exam: PRESENT: normal external ear exam Mouth exam: PRESENT: moist Respiratory exam: PRESENT: clear to auscultation jeanette Cardiovascular exam: PRESENT: RRR. ABSENT: diastolic murmur, rubs, systolic murmur GI: PRESENT: Normal bowel sound, soft ABSENT: tenderness, guarding, organomegaly Extremities exam: ABSENT: pedal edema Neurological exam: PRESENT: alert, awake, oriented to person, oriented to place, oriented to time, oriented to situation, CN II-XII grossly intact. ABSENT: motor sensory deficit Psychiatric exam: PRESENT: appropriate affect, normal mood. ABSENT: homicidal ideation, suicidal ideation Skin exam: PRESENT: dry, warm Results Laboratory Results: 07/26/19 06:39 07/26/19 06:39 07/18/19 07/18/19 21:40 21:40 Troponin I 0.049 NT-Pro-B Natriuret Pep [id number] H Impressions: Head CT 07/18/19 20:40 IMPRESSION: No acute finding. Pelvis MRA 07/21/19 00:00 IMPRESSION: No renal artery stenosis, dissection or contour abnormality. Assessment & Plan - Diagnosis (1) Encephalopathy, unspecified Is this a current diagnosis for this admission?: Yes (2) Hypertensive emergency Is this a current diagnosis for this admission?: Yes (3) E. coli UTI Is this a current diagnosis for this admission?: Yes (4) Diabetes mellitus type 2 in obese Is this a current diagnosis for this admission?: Yes - Time Time Spent with patient: 25-34 minutes Medications reviewed and adjusted accordingly: Yes Anticipated discharge: Home with Homehealth Within: Other - Inpatient Certification Based on my medical assessment, after consideration of the patient's comorbidities, presenting symptoms, or acuity I expect that the services needed warrant INPATIENT care.: Yes I certify that my determination is in accordance with my understanding of Medicare's requirements for reasonable and necessary INPATIENT services [42 CFR 412.3e].: Yes Medical Necessity: Significant Comorbidiites Make Outpatient Treatment Too Risky, Need Close Monitoring Due to Risk of Patient Decompensation, Risk of Complication if Not Cared For in Hospital, Risk of Diagnosis Which Will Require Inpatient Eval/Care/Monitoring Post Hospital Care: D/C Social Insurance Specialist Documentation - Plan Summary Plan Summary: Continue current medication management.
[2019-07-27] MEDS: METOPROLOL TARTRATE PF/INJ 5 MG/5 ML SDV IV PRN (17:10)
[2019-07-27] MEDS: BENZOCAINE/MENTHOL SORE THROAT LOZENGE BUCCAL PRN ×2 (17:11→21:46)
[2019-07-27] MEDS ORDERED: ALPRAZOLAM 0.25 MG TABLET PO ONE (20:00)
[2019-07-27] MEDS: DOXAZOSIN MESYLATE 4 MG TABLET PO SCH (21:44)
[2019-07-28] MEDS: CLONIDINE HCL 0.2 MG TABLET PO SCH ×4 (00:31→17:36)
[2019-07-28] MEDS: ONDANSETRON HCL INJ/PF 4 MG/2 ML SDV IV PRN ×3 (01:00→17:33)
[2019-07-28] MEDS: HYDRALAZINE HCL 50 MG TABLET PO SCH ×2 (06:24→15:16)
[2019-07-28] MEDS: HEPARIN SOD (PORCINE) 5,000 UNIT/ML 1 ML VIAL SUBCUT SCH ×2 (06:25→15:19)
[2019-07-28] MEDS: INSULIN LISPRO 100 UNIT/ML 3 ML VIAL SUBCUT SCH ×3 (08:21→17:23)
[2019-07-28] MEDS: BENZOCAINE/MENTHOL SORE THROAT LOZENGE BUCCAL PRN (08:26)
[2019-07-28] MEDS: METOPROLOL TARTRATE 100 MG TABLET PO SCH (09:02)
[2019-07-28] MEDS: LACTULOSE SYRUP 20 GM/30 ML UDCUP PO SCH (09:02)
[2019-07-28] MEDS: VALSARTAN 160 MG TABLET PO SCH (09:03)
[2019-07-28] MEDS: NIFEDIPINE 30 MG TAB.ER.24 PO SCH (09:03)
[2019-07-28] MEDS: ISOSORBIDE MONONITRATE 30 MG TAB.ER.24H PO SCH (09:04)
[2019-07-28] MEDS: AMOXICILLIN TR/POT CLAVULANATE 250-125 MG TAB PO SCH (09:04)
[2019-07-28] MEDS: FUROSEMIDE 40 MG TABLET PO SCH (09:04)
[2019-07-28] MEDS: ASPIRIN 81 MG TABLET, ENT COATED PO SCH (09:04)
[2019-07-28] MEDS: CALCITRIOL 0.25 MCG CAPSULE PO SCH (09:05)
[2019-07-28] MEDS: DOXAZOSIN MESYLATE 4 MG TABLET PO SCH ×2 (09:17→17:37)
[2019-07-28] MEDS: INSULIN GLARGINE,HUM.REC.ANLOG 1,000 UNIT/10 ML VIAL SUBCUT SCH (09:19)
[2019-07-28] MEDS ORDERED: SPIRONOLACTONE 25 MG TABLET PO SCH (10:00)
--- NOTE | 2019-07-28 13:07 | PDOC PROGRESS REPORT ---
Subjective Progress Note for:: 07/28/19 Reason For Visit: Patient seen today. Admitted for hypertensive urgency and encephalopathy. Still difficult to control blood pressure. So far investigations negative. Denies any history of chest pains or shortness of breath or headaches. Patient is very comfortable sitting in the recliner. She has a good appetite with no history of nausea vomiting. Labs and medications were reviewed. Physical Exam Vital Signs: Temp Pulse Resp BP Pulse Ox 98.1 F 60 18 178/55 H 96 07/28/19 10:45 07/28/19 10:45 07/28/19 10:45 07/28/19 10:45 07/28/19 10:45 Intake & Output 07/27/19 07/28/19 07/29/19 06:59 06:59 06:59 Intake Total 1200 Balance 1200 Weight General appearance: PRESENT: no acute distress Respiratory exam: PRESENT: clear to auscultation jeanette, decreased breath sounds. ABSENT: crackles Cardiovascular exam: PRESENT: +S1, +S2 GI/Abdominal exam: PRESENT: normal bowel sounds, soft. ABSENT: organomegaly, tenderness Extremities exam: PRESENT: +2 edema Neurological exam: PRESENT: alert, awake, oriented to person, oriented to place, oriented to time Psychiatric exam: PRESENT: appropriate affect Skin exam: ABSENT: erythema, mottled, rash Results Laboratory Results: 07/26/19 06:39 07/26/19 06:39 07/18/19 07/18/19 21:40 21:40 Troponin I 0.049 NT-Pro-B Natriuret Pep [id number] H Impressions: Head CT 07/18/19 20:40 IMPRESSION: No acute finding. Pelvis MRA 07/21/19 00:00 IMPRESSION: No renal artery stenosis, dissection or contour abnormality. Assessment & Plan - Diagnosis (1) Encephalopathy acute Is this a current diagnosis for this admission?: Yes Plan: Resolved. Background hypertensive encephalopathy. (2) Hypertensive emergency Is this a current diagnosis for this admission?: Yes Plan: Improving. However blood pressure still is uncontrolled. Adjust antihype rtensives. She is also got a lot of fluid issues which needs to be tackled. (3) CKD (chronic kidney disease) stage 4, GFR 15-29 ml/min Is this a current diagnosis for this admission?: Yes Plan: Stable. Nonoliguric. Get labs from today and for the next few days. No indications of initiation of renal replacements. (4) Type 2 diabetes mellitus Qualifiers: Diabetes mellitus chcf insulin use: unspecified long term care pharmacist insulin use status Diabetes mellitus complication status: without complication Qualified Code(s): E11.9 - Type 2 diabetes mellitus without complications Plan: Under good control. Monitor. (5) Anemia in chronic kidney disease (CKD) Qualifiers: Chronic kidney disease stage: stage 4 (severe) Qualified Code(s): N18.4 - Chronic kidney disease, stage 4 (severe); D63.1 - Anemia in chronic kidney disease Is this a current diagnosis for this admission?: Yes Plan: Began on erythropoietin. Monitor. (6) Nephrotic range proteinuria Plan: Background diabetic CKD. Monitor
[2019-07-28] MEDS ORDERED: FUROSEMIDE INJ/PF 20 MG/2 ML SDV IV SCH (14:00)
[2019-07-28] MEDS: HYDRALAZINE HCL INJ/PF 20 MG/1 ML SDV IV PRN (17:36)
[2019-07-28 20:55] VITALS: BP 156/57
--- NOTE | 2019-07-28 21:37 | PDOC DISCHARGE SUMMARY ---
Impression - Admit/DC Date/PCP Admission Date/Primary Care Provider: 07/18/19 23:28 QUINCY ALEJO MD Discharge Date: 07/28/19 - Discharge Diagnosis (1) Hypertensive emergency Is this a current diagnosis for this admission?: Yes (2) Encephalopathy, unspecified Is this a current diagnosis for this admission?: Yes (3) Urinary tract infection, site not specified Is this a current diagnosis for this admission?: Yes (4) E. coli UTI Is this a current diagnosis for this admission?: Yes (5) Chronic kidney disease, stage 5 Is this a current diagnosis for this admission?: Yes (6) Diabetes mellitus with diabetic nephropathy Is this a current diagnosis for this admission?: Yes (7) Tremor due to multiple drugs Is this a current diagnosis for this admission?: Yes - Additional Information Discharge Diet: As Tolerated Discharge Activity: Activity As Tolerated, Balance Activity w/Rest Referrals: QUINCY ALEJO MD [Primary Care Provider] - (We will make a follow-up appointment for you and contact you with the date and time. Thank you and have a great day!) Prescriptions: Doxazosin Mesylate [Cardura 4 mg Tablet] 4 mg PO BID #60 tablet Nifedipine [Procardia XL 30 mg Tablet] 90 mg PO DAILY #90 tab.er.24 Home Medications: Aspirin [Ecotrin 81 mg EC Tablet] 81 mg PO DAILY 04/08/19 Atorvastatin Calcium [Lipitor 80 mg Tablet] 80 mg PO QHS 04/08/19 Clonidine HCl [Catapres 0.2 mg Tablet] 0.2 mg PO TID 04/08/19 Metoprolol Tartrate [Lopressor 100 mg Tablet] 100 mg PO Q12 04/08/19 Furosemide [Lasix 40 mg Tablet] 40 mg PO BID #180 tablet 04/10/19 Hydralazine HCl [Apresoline 50 mg Tablet] 100 mg PO Q8 #90 tablet 04/10/19 Valsartan [Diovan 160 mg Tablet] 320 mg PO DAILY #90 tablet 04/10/19 Doxazosin Mesylate [Cardura 4 mg Tablet] 4 mg PO BID #60 tablet 07/28/19 Isosorbide Mononitrate [Imdur 30 mg Tablet.er] 30 mg PO DAILY tab.er.24h 07/28/19 Nifedipine [Procardia XL 30 mg Tablet] 90 mg PO DAILY #90 tab.er.24 07/28/19 History of Present Illiness History of Present Illness: YG RUSSO is a 73 year old female,Patient presented with hypertensive emergency associated with encephalopathy Hospital Course Hospital Course: Patient presented with hypertensive emergency associated with encephalopathy, she was initially managed in intensive care unit because she needed intravenous nicardipine infusion which is only administered in intensive care unit. She was seen in consultation by nephrology Dr. lou and Dr. Daniels. She has underlining chronic kidney disease stage V due to diabetes nephropathy she has resistant hypertension chronically difficult to control despite multiple medications. On this admission she also had Doppler study of the renal arteries there was no evidence of renal artery stenosis. She also had UTI due to E. coli she was treated with antibiotic. Kidney function has progressively decline she is now CKD stage V, with this trend of decline of kidney function she is close to hemodialysis, she was made aware of this fact by the treating planner. Patient wants to go home today. She has a history of gastroparesis from diabetic autonomic neuropathy with associated nausea and vomiting, she was given Reglan when she was in intensive care unit, she developed tremors more so affecting the right upper extremities, the Reglan was discontinued on the floor, the tremors had since resolved Physical Exam Vital Signs: Temp Pulse Resp BP Pulse Ox 98.0 F 58 L 16 156/57 H 96 07/28/19 20:13 07/28/19 20:13 07/28/19 20:13 07/28/19 20:13 07/28/19 20:13 Intake & Output 07/27/19 07/28/19 07/29/19 06:59 06:59 06:59 Intake Total 1200 686 Balance 1200 686 Weight General appearance: PRESENT: no acute distress Eye exam: PRESENT: PERRLA Respiratory exam: PRESENT: clear to auscultation jeanette Cardiovascular exam: PRESENT: +S1, +S2 GI/Abdominal exam: PRESENT: soft Neurological exam: PRESENT: alert Results Laboratory Results: WBC 9.1 10^3/uL (4.0-10.5) 07/26/19 06:39 RBC 3.28 10^6/uL (3.72-5.28) L 07/26/19 06:39 Hgb 8.4 g/dL (12.0-15.5) L 07/26/19 06:39 Hct 25.6 % (36.0-47.0) L 07/26/19 06:39 MCV 78 fl (80-97) L 07/26/19 06:39 MCH 25.6 pg (27.0-33.4) L 07/26/19 06:39 MCHC 32.9 g/dL (32.0-36.0) 07/26/19 06:39 RDW 17.2 % (11.5-14.0) H 07/26/19 06:39 Plt Count 259 10^3/uL (150-450) 07/26/19 06:39 Lymph % (Auto) 14.6 % (13-45) 07/26/19 06:39 [place] % (Auto) 13.4 % (3-13) H 07/26/19 06:39 Eos % (Auto) 7.3 % (0-6) H 07/26/19 06:39 Baso % (Auto) 0.9 % (0-2) 07/26/19 06:39 Reticulocyte # 0.098 10^6/uL (0.028-0.122) 07/24/19 04:20 Absolute Neuts (auto) 5.8 10^3/uL (1.7-8.2) 07/26/19 06:39 Absolute Lymphs (auto) 1.3 10^3/uL (0.5-4.7) 07/26/19 06:39 Absolute Monos (auto) 1.2 10^3/uL (0.1-1.4) 07/26/19 06:39 Absolute Eos (auto) 0.7 10^3/uL (0.0-0.6) H 07/26/19 06:39 Absolute Basos (auto) 0.1 10^3/uL (0.0-0.2) 07/26/19 06:39 Seg Neutrophils % 63.8 % (42-78) 07/26/19 06:39 Retic Count (auto) 2.62 % (0.66-2.85) 07/24/19 04:20 PT 14.2 SEC (11.4-15.4) 07/18/19 21:40 INR 1.10 07/18/19 21:40 APTT 33.1 SEC (23.5-35.8) 07/18/19 21:40 Carbonic Acid 0.99 mmol/L (1.05-1.35) L 07/19/19 03:52 HCO3/H2CO3 Ratio 22:1 07/19/19 03:52 ABG pH 7.46 (7.35-7.45) H 07/19/19 03:52 ABG pCO2 32.9 mmHg (35-45) L 07/19/19 03:52 ABG pO2 91.6 mmHg (80-100) 07/19/19 03:52 ABG HCO3 22.6 mmol/L (20-24) 07/19/19 03:52 ABG Total CO2 23.6 mmol/L (21-25) 07/19/19 03:52 ABG O2 Saturation 97.4 % (94-98) 07/19/19 03:52 ABG Base Excess -0.8 mmol/L 07/19/19 03:52 FiO2 ROOM AIR 07/19/19 03:52 Sodium 138.7 mmol/L (137-145) 07/26/19 06:39 Potassium 3.7 mmol/L (3.6-5.0) 07/26/19 06:39 Chloride 109 mmol/L (98-107) H 07/26/19 06:39 Carbon Dioxide 20 mmol/L (22-30) L 07/26/19 06:39 Anion Gap 10 (5-19) 07/26/19 06:39 BUN 44 mg/dL (7-20) H 07/26/19 06:39 Creatinine 4.52 mg/dL (0.52-1.25) H 07/26/19 06:39 Est GFR ( Amer) 12 (>60) L 07/26/19 06:39 Est GFR (Non-Af Amer) Cancelled 07/18/19 21:40 Est GFR (MDRD) Non-Af 10 (>60) L 07/26/19 06:39 Glucose 128 mg/dL (75-110) H 07/26/19 06:39 POC Glucose 123 mg/dL (70-110) H 07/28/19 16:32 Hemoglobin A1c % 5.3 % (4.7-6.0) 07/19/19 04:02 Calcium 8.6 mg/dL (8.4-10.2) 07/26/19 06:39 Phosphorus 3.5 mg/dL (2.5-4.5) 07/22/19 03:58 Magnesium 1.8 mg/dL (1.6-2.3) 07/22/19 03:58 Iron 68.9 ug/dL (37-170) 07/24/19 04:20 TIBC 212 ug/dL (250-450) L 07/24/19 04:20 % Saturation 33 % 07/24/19 04:20 Ferritin 189.00 ng/mL (11.1-264.0) 07/24/19 04:20 Total Bilirubin 0.4 mg/dL (0.2-1.3) 07/21/19 06:35 Direct Bilirubin 0.4 mg/dL (0.0-0.4) 07/21/19 06:35 Neonat Total Bilirubin Not Reportable 07/21/19 06:35 Neonat Direct Bilirubin Not Reportable 07/21/19 06:35 Neonat Indirect Bili Not Reportable 07/21/19 06:35 AST 18 U/L (14-36) 07/21/19 06:35 ALT 7 U/L (<35) 07/21/19 06:35 Alkaline Phosphatase 64 U/L (38-126) 07/21/19 06:35 Ammonia < 8.7 umol/L (9-33) L 07/19/19 00:21 Troponin I 0.049 ng/mL 07/18/19 21:40 NT-Pro-B Natriuret Pep 61642 pg/mL (<125) H 07/18/19 21:40 Total Protein 5.4 g/dL (6.3-8.2) L 07/21/19 06:35 Albumin 2.7 g/dL (3.5-5.0) L 07/21/19 06:35 Triglycerides 109 mg/dL (<150) 07/19/19 04:02 Cholesterol 163.72 mg/dL (0-200) 07/19/19 04:02 LDL Cholesterol Direct 78 mg/dL (<100) 07/19/19 04:02 VLDL Cholesterol 22.0 mg/dL (10-31) 07/19/19 04:02 HDL Cholesterol 54 mg/dL (>40) 07/19/19 04:02 Amylase 54 U/L (30-110) 07/18/19 21:40 Lipase 101.2 U/L (23-300) 07/18/19 21:40 EGFR Cancelled 07/18/19 21:40 Vitamin B12 559.0 pg/mL (239-931) 07/24/19 04:20 Folate 12.70 ng/mL (>2.76) 07/24/19 04:20 TSH 1.67 uIU/mL (0.47-4.68) 07/18/19 21:40 Free T4 2.19 ng/dL (0.78-2.19) 07/18/19 21:40 PTH Intact 410.6 pg/mL (10.0-65.0) H 07/22/19 03:58 Urine Color HERNANDEZ 07/19/19 12:58 Urine Appearance CLOUDY 07/19/19 12:58 Urine pH 5.0 (5.0-9.0) 07/19/19 12:58 Ur Specific [place] 1.023 07/19/19 12:58 Urine Protein >=500 mg/dL (NEGATIVE) H 07/19/19 12:58 Urine Glucose (UA) NEGATIVE mg/dL (NEGATIVE) 07/19/19 12:58 Urine Ketones TRACE mg/dL (NEGATIVE) H 07/19/19 12:58 Urine Blood SMALL (NEGATIVE) H 07/19/19 12:58 Urine Nitrite NEGATIVE (NEGATIVE) 07/19/19 12:58 Urine Bilirubin NEGATIVE (NEGATIVE) 07/19/19 12:58 Urine Urobilinogen NEGATIVE mg/dL (<2.0) 07/19/19 12:58 Ur Leukocyte Esterase TRACE (NEGATIVE) H 07/19/19 12:58 Urine WBC (Auto) 73 /HPF 07/19/19 12:58 Urine RBC (Auto) 2 /HPF 07/19/19 12:58 Urine Bacteria (Auto) 3+ /HPF 07/19/19 12:58 Squamous Epi Cells Auto 4 /HPF 07/19/19 12:58 Urine Mucus (Auto) RARE /LPF 07/19/19 12:58 Urine Creatinine 75.8 mg/dL (15-278) 07/22/19 13:13 Protein/Creatinin Ratio 6.9 mg/mg (0.0-0.2) H 07/22/19 13:13 Urine Total Protein 522.9 mg/dL (<12) H 07/22/19 13:13 Urine Ascorbic Acid NEGATIVE (NEGATIVE) 07/19/19 12:58 Urine Opiates Screen NEGATIVE 07/19/19 12:58 Urine Methadone Screen NEGATIVE 07/19/19 12:58 Ur Barbiturates Screen NEGATIVE 07/19/19 12:58 Ur Phencyclidine Scrn NEGATIVE 07/19/19 12:58 Ur Amphetamines Screen NEGATIVE 07/19/19 12:58 U Benzodiazepines Scrn NEGATIVE 07/19/19 12:58 Urine Cocaine Screen NEGATIVE 07/19/19 12:58 U Marijuana (THC) Screen NEGATIVE 07/19/19 12:58 07/18/19 07/18/19 21:40 21:40 Troponin I 0.049 NT-Pro-B Natriuret Pep [id number] H Impressions: Head CT 07/18/19 20:40 IMPRESSION: No acute finding. Pelvis MRA 07/21/19 00:00 IMPRESSION: No renal artery stenosis, dissection or contour abnormality. Stroke Is this a Stroke Patient?: No Acute Heart Failure - Is this a Heart Failure Patient?: No
== END 2019-07-28 21:12 | disposition home or self-care (01) | DRG 305 ==
LOC: ER 20:07 → EH 23:28 → ICU 07-19 06:25 → 4S 07-24 05:15
PROVIDERS: ADMIT Anesthesiology; ATTEND Internal Medicine
PROC: 06HN33Z Insertion of Infusion Device into Left Femoral Vein, Percutaneous Approach (ICD-10-PCS; 2019-07-19)
PROC: B43 Imaging, Lower Arteries, Magnetic Resonance Imaging (MRI) (ICD-10-PCS; principal; 2019-07-21)
DX: I16.1 Hypertensive emergency (principal); G93.40 Encephalopathy, unspecified; N25.81 Secondary hyperparathyroidism of renal origin; N18.5 Chronic kidney disease, stage 5; N39.0 Urinary tract infection, site not specified; E11.319 Type 2 diabetes mellitus with unspecified diabetic retinopathy without macular edema; D63.1 Anemia in chronic kidney disease; E11.21 Type 2 diabetes mellitus with diabetic nephropathy; E11.43 Type 2 diabetes mellitus with diabetic autonomic (poly)neuropathy; K31.84 Gastroparesis; I12.0 Hypertensive chronic kidney disease with stage 5 chronic kidney disease or end stage renal disease; B96.20 Unspecified Escherichia coli [E. coli] as the cause of diseases classified elsewhere; G25.1 Drug-induced tremor; I25.10 Atherosclerotic heart disease of native coronary artery without angina pectoris; E78.5 Hyperlipidemia, unspecified; I10 Essential (primary) hypertension; M19.90 Unspecified osteoarthritis, unspecified site; R80.9 Proteinuria, unspecified; R60.9 Edema, unspecified; E66.9 Obesity, unspecified; Z79.82 Long term (current) use of aspirin; Z85.038 Personal history of other malignant neoplasm of large intestine; Z95.5 Presence of coronary angioplasty implant and graft; Z88.6 Allergy status to analgesic agent; Z88.8 Allergy status to other drugs, medicaments and biological substances
CPT/HCPCS: 36415; 36600; 70450; 80048; 80061; 80076; 80307; 81001; 82140; 82150; 82570; 82607; 82728; 82746; 82803; 82962; 83036; 83540; 83550; 83690; 83735; 83880; 83970; 84100; 84156; 84439; 84443; 84484; 85025; 85045; 85610; 85730; 87040; 87070; 87086; 87088; 87186; 93005; 93010; 96365; 96375; 99231; 99291; C1751; C8919; J0360; J1644; J1815; J1940; J2405; J2765; J3490; J7030; Q5106

== ENCOUNTER 2019-09-20 06:47 | Emergency (ER) | payer MEDICARE ==
[2019-09-20 07:30] LABS: ABSOLUTE BASOPHILS # (AUTO) 0.1 10^3/uL (0.0-0.2); ABSOLUTE EOSINOPHILS # (AUTO) 0.4 10^3/uL (0.0-0.6); ABSOLUTE LYMPHOCYTES (AUTO) 0.8 10^3/uL (0.5-4.7); ABSOLUTE MONOCYTES (AUTO) 0.7 10^3/uL (0.1-1.4); ABSOLUTE NEUT (AUTO) 3.8 10^3/uL (1.7-8.2); BASOPHILS % (AUTO) 1.2 % (0-2); EOSINOPHILS % (AUTO) 6.7 % (0-6); HEMATOCRIT 21.3 % (36.0-47.0); LYMPHOCYTES % (AUTO) 13.3 % (13-45); MEAN CORPUSCULAR HEMOGLOBIN 25.7 pg (27.0-33.4); MEAN CORPUSCULAR HGB CONC 32.5 g/dL (32.0-36.0); MEAN CORPUSCULAR VOLUME 79 fl (80-97); MONOCYTES % (AUTO) 11.8 % (3-13); PLATELET COUNT 187 10^3/uL (150-450); RED BLOOD COUNT 2.69 10^6/uL (3.72-5.28); RED CELL DISTRIBUTION WIDTH 17.3 % (11.5-14.0); TOTAL CELLS COUNTED % (AUTO) 100 %; WHITE BLOOD COUNT 5.7 10^3/uL (4.0-10.5)
[2019-09-20 07:38] LABS: HEMOGLOBIN 6.9 g/dL (12.0-15.5)
[2019-09-20 07:45] LABS: ALBUMIN 2.8 g/dL (3.5-5.0); ALKALINE PHOSPHATASE 103 U/L (38-126); ANION GAP 14 (5-19); ASPARTATE AMINO TRANSFERASE 22 U/L (14-36); BILIRUBIN,DIRECT 0.3 mg/dL (0.0-0.4); BILIRUBIN,TOTAL 0.3 mg/dL (0.2-1.3); BLOOD UREA NITROGEN 77 mg/dL (7-20); CALCIUM 8.1 mg/dL (8.4-10.2); CARBON DIOXIDE 18 mmol/L (22-30); CHLORIDE 108 mmol/L (98-107); CREATINE KINASE 63 U/L (30-135); TOTAL PROTEIN 5.7 g/dL (6.3-8.2)
[2019-09-20 07:48] LABS: GLUCOSE 65 mg/dL (75-110)
[2019-09-20] MEDS ORDERED: NORMAL SALINE 250 ML IV PRN ×2 (10:35)
--- NOTE | 2019-09-20 10:49 | ER Document Report ---
ED General - General Chief Complaint: Anemia Stated Complaint: SENT BY DOCTOR FOR LAB WORK Time Seen by Provider: 09/20/19 10:13 Primary Care Provider: QUINCY ALEJO MD [Primary Care Provider] - Follow up as needed Notes: HPI: 73-year-old female who presents after a blood draw at an outside residential care facility manager office showing hemoglobin less than 7. Patient has had some chronic kidney disease with a baseline creatinine around 3-4. Hemoglobin is been 8.4 on last blood draw July 26. Patient denies any black or bloody stools. She denies any runny nose, congestion, chest pain, lightheadedness, fever, or abdominal pain. She denies a history of liver pathology. ROS: See HPI All other review of systems reviewed and otherwise negative Reviewed vital signs and nursing note as charted by RN. PHYSICAL EXAM: CONSTITUTIONAL: Alert and oriented and responds appropriately to questions. Well-appearing; well-nourished HEAD: Normocephalic; atraumatic EYES: PERRL; Conjunctivae clear, sclerae is pale and slightly icteric ENT: Normal nose; no rhinorrhea; moist mucous membranes; pharynx without lesions noted NECK: Supple without meningismus; non-tender; no cervical lymphadenopathy, no masses CARD: Regular rate and rhythm; no murmurs; symmetric distal pulses RESP: Normal chest excursion without splinting or tachypnea; breath sounds clear and equal bilaterally; no wheezes, no rhonchi, no rales ABD/GI: Normal bowel sounds; non-distended; soft, non-tender to deep palpation of all 4 quadrants of the abdomen BACK: The back appears normal and is non-tender to palpation EXT: Normal ROM in all joints; non-tender to palpation; no edema SKIN: No acute lesions noted NEURO: CN 2-12 intact; 5/5 bilateral upper and lower extremity strength with sensation intact to light touch PSYCH: The patient's mood and manner are appropriate. Grooming and personal hygiene are appropriate. TRAVEL OUTSIDE OF THE [place] IN LAST 30 DAYS: No - Related Data Allergies/Adverse Reactions: codeine [Codeine] Allergy (Mild, Verified 03/30/19 09:05) meperidine HCl [From Demerol] Allergy (Mild, Verified 03/30/19 09:05) morphine Allergy (Verified 03/30/19 09:05) pregabalin [From Lyrica] Allergy (Verified 03/30/19 09:05) Past Medical History - Social History Smoking Status: Never Smoker Family History: Reviewed & Not Pertinent, CAD Patient has suicidal ideation: No Patient has homicidal ideation: No - Past Medical History Cardiac Medical History: Reports: Hx Coronary Artery Disease, Hx Hypercholesterolemia, Hx Hypertension Endocrine Medical History: Reports: Hx Diabetes Mellitus Type 1, Hx Diabetes Mellitus Type 2 Renal/ Medical History: Reports: Hx Ovarian Cysts. Denies: Hx Peritoneal Dialysis Malignancy Medical History: Reports: Hx Colorectal Cancer - Status post colon resection. Musculoskeletal Medical History: Reports Hx Arthritis Psychiatric Medical History: Denies: Hx Depression Past Surgical History: Reports: Hx Abdominal Surgery - colon resection, Hx Cardiac Catheterization - stents x 2, Hx Gynecologic Surgery, Hx Tubal Ligation, Other - Colon resection. Denies: Hx Hysterectomy - Immunizations Immunizations up to date: Yes Hx Diphtheria, Pertussis, Tetanus Vaccination: Yes Physical Exam - Vital signs Vitals: Temp Pulse Resp BP Pulse Ox 97.6 F 56 L 18 139/66 H 95 09/20/19 06:56 09/20/19 06:56 09/20/19 06:56 09/20/19 06:56 09/20/19 06:56 Course - Re-evaluation Re-evalutation: Given the above history and physical examination, we will obtain basic labs, c oagulation profile, repeat CBC, chemistry, and reassess. Would like to assess for the possibility of a rectal or upper abdominal bleed. Patient has no pain or fevers. Patient's pale skin is slightly yellowish so I would add on liver panel. 09/20/19 10:48 Hemoglobin as recorded. I have consented the patient for blood explaining the risks and benefits of blood transfusion. Patient's creatinine is elevated from previous level. Potassium as recorded. 09/20/19 11:29 [facility] has accepted the patient. We will provide blood. Patient still denies any pain. Liver panel as recorded. - Vital Signs Vital signs: Temp Pulse Resp BP Pulse Ox 97.6 F 56 L 20 141/63 H 98 09/20/19 06:56 09/20/19 06:56 09/20/19 09:01 09/20/19 09:01 09/20/19 09:01 - Laboratory Result Diagrams: 09/20/19 07:10 09/20/19 07:10 Laboratory results interpreted by me: 09/20/19 09/20/19 09/20/19 07:10 07:10 07:10 RBC 2.69 L Hgb 6.9 L Hct 21.3 L MCV 79 L MCH 25.7 L RDW 17.3 H Eos % (Auto) 6.7 H Chloride 108 H Carbon Dioxide 18 L BUN 77 H Creatinine 5.82 H Est GFR ( Amer) 9 L Est GFR (MDRD) Non-Af 7 L Glucose 65 L Calcium 8.1 L Total Protein 5.7 L Albumin 2.8 L Crossmatch See Detail Critical Care Note - Critical Care Note Total time excluding time spent on procedures (mins): 35 Discharge - Discharge Clinical Impression: Acute anemia, Acute on chronic renal insufficiency Condition: Serious Disposition: [facility] Referrals: QUINCY ALEJO MD [Primary Care Provider] - Follow up as needed
[2019-09-20 11:14] LABS: INTERNATIONAL RATION (INR) 1.11; PROTHROMBIN TIME 14.4 SEC (11.4-15.4)
--- NOTE | 2019-09-20 13:49 | EKG REPORT ---
SEVERITY:- ABNORMAL ECG - SINUS RHYTHM LEFT ANTERIOR FASCICULAR BLOCK CONSIDER ANTERIOR INFARCT : Confirmed by: Jennifer De Jesus MD 20-Sep-2019 13:48:03
[2019-09-20 20:22] VITALS: BP 132/59
== END 2019-09-20 20:53 | disposition short-term general hospital (02) ==
LOC: ER 06:47
DX: D64.9 Anemia, unspecified (principal); N17.9 Acute kidney failure, unspecified; N18.9 Chronic kidney disease, unspecified
CPT/HCPCS: 93005; 99291; 96360; 96361; 86900; 86901; 36415; 36430; 86850; 82962; 82550; 85025; 85610; 80053; 86920; 93010; P9016; J7050

== ENCOUNTER → 2019-09-26 | Outpatient (CLI) | payer MEDICARE ==
[2019-09-26 15:29] LABS: ANION GAP 16 (5-19); BLOOD UREA NITROGEN 82 mg/dL (7-20); CALCIUM 8.6 mg/dL (8.4-10.2); CARBON DIOXIDE 16 mmol/L (22-30); CHLORIDE 107 mmol/L (98-107); GLUCOSE 85 mg/dL (75-110); POTASSIUM 4.9 mmol/L (3.6-5.0)
[2019-09-29 12:37] LABS: HEPATITIS C VIRUS AB <0.1 s/co ratio (0.0-0.9)
[2019-09-29 13:23] LABS: HEPATITS B SURFACE ANTIGEN Negative (Negative)
== END ==
LOC: OD 13:57
PROVIDERS: ATTEND Internal Medicine Nephrology
DX: I12.9 Hypertensive chronic kidney disease with stage 1 through stage 4 chronic kidney disease, or unspecified chronic kidney disease (principal); N18.4 Chronic kidney disease, stage 4 (severe); E11.22 Type 2 diabetes mellitus with diabetic chronic kidney disease; Z11.59 Encounter for screening for other viral diseases
CPT/HCPCS: 36415; 80048; 86317; 86707; 86803; 86804; 87340

== ENCOUNTER → 2019-10-17 | Outpatient (CLI) | payer MEDICARE ==
[2019-10-17 13:30] LABS: ABSOLUTE BASOPHILS # (AUTO) 0.1 10^3/uL (0.0-0.2); ABSOLUTE EOSINOPHILS # (AUTO) 0.5 10^3/uL (0.0-0.6); ABSOLUTE LYMPHOCYTES (AUTO) 0.7 10^3/uL (0.5-4.7); ABSOLUTE MONOCYTES (AUTO) 0.7 10^3/uL (0.1-1.4); ABSOLUTE NEUT (AUTO) 4.8 10^3/uL (1.7-8.2); BASOPHILS % (AUTO) 1.6 % (0-2); HEMATOCRIT 26.8 % (36.0-47.0); HEMOGLOBIN 8.9 g/dL (12.0-15.5); LYMPHOCYTES % (AUTO) 10.9 % (13-45); MEAN CORPUSCULAR HEMOGLOBIN 26.5 pg (27.0-33.4); MEAN CORPUSCULAR HGB CONC 33.1 g/dL (32.0-36.0); MEAN CORPUSCULAR VOLUME 80 fl (80-97); MONOCYTES % (AUTO) 9.6 % (3-13); PLATELET COUNT 227 10^3/uL (150-450); RED BLOOD COUNT 3.35 10^6/uL (3.72-5.28); RED CELL DISTRIBUTION WIDTH 18.2 % (11.5-14.0); SEGMENTED NEUTROPHILS % (AUTO) 69.9 % (42-78); TOTAL CELLS COUNTED % (AUTO) 100 %; WHITE BLOOD COUNT 6.8 10^3/uL (4.0-10.5)
[2019-10-17 13:52] LABS: ALBUMIN 3.3 g/dL (3.5-5.0); ANION GAP 12 (5-19); BLOOD UREA NITROGEN 52 mg/dL (7-20); CALCIUM 8.7 mg/dL (8.4-10.2); CARBON DIOXIDE 25 mmol/L (22-30); CHLORIDE 102 mmol/L (98-107); GLUCOSE 110 mg/dL (75-110); PHOSPHORUS 4.9 mg/dL (2.5-4.5); POTASSIUM 4.5 mmol/L (3.6-5.0)
[2019-10-18 05:37] LABS: HEPATITIS C VIRUS AB <0.1 s/co ratio (0.0-0.9); HEPATITS B SURFACE ANTIGEN Negative (Negative)
[2019-10-18 08:28] LABS: HEPATITIS B CORE AB TOT Positive (Negative)
== END ==
LOC: OD 12:39
PROVIDERS: ATTEND Internal Medicine Nephrology
DX: E11.22 Type 2 diabetes mellitus with diabetic chronic kidney disease (principal); I12.0 Hypertensive chronic kidney disease with stage 5 chronic kidney disease or end stage renal disease; N18.5 Chronic kidney disease, stage 5; D63.1 Anemia in chronic kidney disease; Z11.59 Encounter for screening for other viral diseases
CPT/HCPCS: 36415; 80069; 82306; 85025; 86317; 86704; 86803; 86804; 87340

== ENCOUNTER → 2019-10-18 | Outpatient (CLI) | payer MEDICARE ==
--- NOTE | 2019-10-18 13:27 | RADIOLOGY REPORT (SQ) ---
EXAM DESCRIPTION: MRI LUMBAR SPINE WITHOUT COMPLETED DATE/TIME: 10/18/2019 12:21 pm REASON FOR STUDY: R26.9 UNSPECIFIED ABNORMALITIES OF GAIT AND MOBILITY R26.9 UNSPECIFIED ABNORMALIT IES OF GAIT AND MOBILITY COMPARISON: MRI lumbar spine 09/10/2017 TECHNIQUE: Sagittal and Axial imaging includes T1, T2, STIR and gradient echo sequences. Coronal T2/ HASTE imaging. LIMITATIONS: None. FINDINGS: VISUALIZED UPPER ABDOMEN: Limited evaluation. No acute or suspicious findings suggested. SEGMENTATION: No transitional anatomy. The lowest well-developed disc space is labeled L5-S1. ALIGNMENT: Anatomic. VERTEBRAE: Intact. BONE MARROW: Sclerotic vertebral body endplate changes at L4-5 DISC SIGNAL: High-grade disc space loss of height with sclerotic vertebral body endplate changes at L 4-5. POSTERIOR ELEMENTS: Generally intact. No pars defect evident. HARDWARE: None in the spine. CORD AND CONUS: Normal in size and signal intensity. Conus at the T12-L1 level. SOFT TISSUES: No aortic aneurysm seen. No bulky retroperitoneal adenopathy or mass. No paraspinal mas s or fluid. T10-11: At the upper edge of the field of view. Bulky bilateral facet hypertrophy is present with m ild bilateral foraminal narrowing. Borderline central stenosis. T11-12: Bulky right and left facet hypertrophy causes mild bilateral foraminal narrowing. No centra l stenosis. T12-L1: Mild bilateral facet hypertrophy. No central or foraminal stenosis. L1-L2: Mild bilateral facet and ligament hypertrophy is present without central or foraminal stenosis L2-L3: Moderate bilateral facet and ligament hypertrophy is present without central or foraminal sten osis. L3-L4: Mild central canal stenosis results from broad diffuse posterior disc bulge and moderate bilat eral facet and ligament hypertrophy. This best shown on axial T2 image 17. There is mild bilateral inferior foraminal narrowing without exiting L3 nerve root impingement. L4-L5: Broad diffuse posterior disc bulging, a chronic right paracentral disc herniation with superio rly migrated fragment, and very bulky bilateral facet and ligament hypertrophy causes high-grade cent ral canal stenosis with effacement of the CSF around the lumbar nerve roots and flattening of the the tomas sac into a triangular shape. This is similar compared to MRI 09/10/2017, best shown on axial T2 image 23. Elsewhere at L4-5, moderate right and left foraminal narrowing is present with partial effacement of fat around the exiting L4 nerve roots bilaterally. L5-S1: Bulky bilateral facet hypertrophy. Mild posterior disc bulging. No central stenosis. Mild b ilateral foraminal narrowing without exit L5 nerve root impingement. SACRUM: Visualized upper sacrum intact. OTHER: No other significant findings. IMPRESSION: High-grade central canal stenosis at L4-5, moderate bilateral foraminal narrowing at L4- 5. TECHNICAL DOCUMENTATION: JOB ID: [id number] [employer]- All Rights Reserved Reading location - IP/workstation name: [email or web address]
== END ==
LOC: RAD 11:05
PROVIDERS: ATTEND Orthopaedic Surgery Sports Medicine
DX: M51.26 Other intervertebral disc displacement, lumbar region (principal); M48.061 Spinal stenosis, lumbar region without neurogenic claudication; R26.9 Unspecified abnormalities of gait and mobility
CPT/HCPCS: 72148

== ENCOUNTER 2019-10-20 06:00 | Day surgery (SDC) | payer MEDICARE ==
--- NOTE | 2019-10-20 08:10 | PDOC H&P ---
General Chief Complaint: This patient was admitted for insertion of a permacatheter. She has arrived at [facility] and warrants dialysis. - Diagnosis (1) CKD (chronic kidney disease) stage 5, GFR less than 15 ml/min Is this a Current Diagnosis?: Yes (2) Chronic back pain Is this a Current Diagnosis?: Yes (3) Diabetes mellitus type 2 in obese Is this a Current Diagnosis?: Yes (4) Hypertension Is this a Current Diagnosis?: Yes - Current Medications/Allergies Home Medications: Aspirin [Ecotrin 81 mg EC Tablet] 81 mg PO DAILY 04/08/19 Atorvastatin Calcium [Lipitor 80 mg Tablet] 80 mg PO QHS 04/08/19 Metoprolol Tartrate [Lopressor 100 mg Tablet] 100 mg PO Q12 04/08/19 Amlodipine Besylate [Norvasc 10 mg Tablet] 10 mg PO DAILY 09/20/19 Cetirizine HCl [Zyrtec 10 mg Tablet] 10 mg PO DAILY 09/20/19 Doxazosin Mesylate [Cardura 4 mg Tablet] 4 mg PO Q12 09/20/19 Meclizine HCl [Antivert 25 mg Tablet] 25 mg PO TIDP PRN 09/20/19 Montelukast Sodium [Singulair 10 mg Tablet] 10 mg PO QHS 09/20/19 Nifedipine [Procardia XL 30 mg Tablet] 30 mg PO DAILY 09/20/19 Ondansetron HCl [Zofran 4 mg Tablet] 4 mg PO DAILYP PRN 09/20/19 Allergies/Adverse Reactions: codeine [Codeine] Allergy (Mild, Verified 10/20/19 07:09) meperidine HCl [From Demerol] Allergy (Mild, Verified 10/20/19 07:09) morphine Allergy (Verified 10/20/19 07:09) pregabalin [From Lyrica] Allergy (Verified 10/20/19 07:09) Past Medical History Cardiac Medical History: Reports: Coronary Artery Disease, Hyperlipidema, Hypertension Denies: Myocardial Infarction Pulmonary Medical History: Reports: Chronic Obstructive Pulmonary Disease (COPD) - cpap Denies: Asthma, Bronchitis, Pneumonia Neurological Medical History: Denies: Seizures Endocrine Medical History: Reports: Diabetes Mellitus Type 1, Diabetes Mellitus Type 2 Malignancy Medical History: Reports: Colorectal Cancer - Status post colon resection. Musculoskeltal Medical History: Denies: Arthritis Psychiatric Medical History: Denies: Depression Hematology: Reports: Anemia Past Surgical History Past Surgical History: Reports: Cardiac Catheterization - stents x 2, Tubal Ligation, Other - Colon resection Denies: Hysterectomy Family History Family History: Reviewed & Not Pertinent, CAD Parental Family History Reviewed: No Children Family History Reviewed: No Sibling(s) Family History Reviewed.: No Social History Smoking Status: Never Smoker Frequency of Alcohol Use: None Hx Recreational Drug Use: No Drugs: None Hx Prescription Drug Abuse: No Physical Exam Vital Signs: Temp Pulse Resp BP Pulse Ox 97.8 F 62 18 167/75 H 94 10/20/19 06:00 10/20/19 06:00 10/20/19 06:00 10/20/19 06:00 10/20/19 06:00 Intake & Output 10/19/19 10/20/19 10/21/19 06:59 06:59 06:59 Weight 81.647 kg Additional comments: Constitutional: Well-developed well-nourished -[place]mese lady, increased body mass index. No apparent acute distress. present. Eyes: Mucous membranes pale and moist, pupils equal and reactive to light. Conjunctiva normal. Cornea normal. ENT: Hearing grossly normal. External pinna normal to inspection. Teeth intact. Tongue normal to inspection. Cardiac: Heart sounds 1 and 2 normal, no murmurs. Respiratory: breath sounds are present bilaterally, normal. Normal respiratory effort. Skin: Normal to inspection. No ulcers, normal turgor. . Psychiatric: Judgment, memory, insight seem normal. Mood is pleasant and appropriate. Extremities: Upper extremities show normal range of movement. Pulses present noted to the radial arteries. Capillary refill normal. No cyanosis noted. No muscle wasting noted. Neurovascular: No apparent tremors, uses a wheelchair to get around because of back issues. Sensation grossly intact. Hearing grossly normal. Vison grossly intact. Impression/Plan Plan: In this patient with CKD 5 requires early hemodialysis insertion of a PermCath seems well indicated. The procedure was discussed with the patient and her . They understand the risks to include infection, bleeding, heart, lung complications, injury to other structures, malfunction. Their questions and concerns were fully addressed. At the agreeable and wished to proceed.
[2019-10-20] MEDS ORDERED: OXYCODONE-ACETAMINOPHEN 5-325 MG TABLET PO PRN (08:18)
[2019-10-20] MEDS ORDERED: CEFAZOLIN 1 GM/D5W RTU 1 GM/50 ML RTUPB IV PRN (08:19)
[2019-10-20] MEDS ORDERED: DIAZEPAM 5 MG TABLET PO PRN (08:19)
[2019-10-20] MEDS ORDERED: OXYCODONE-ACETAMINOPHEN 5-325 MG TABLET ONE (08:22)
[2019-10-20] MEDS ORDERED: DIAZEPAM 5 MG TABLET ONE (08:22)
[2019-10-20] MEDS ORDERED: LIDOCAINE 0.5% INJ-PF (5 MG/ML) 50 ML SDV ONE (08:36)
[2019-10-20] MEDS ORDERED: BACITRACIN INJ 50,000 UNIT VIAL ONE (08:36)
[2019-10-20] MEDS ORDERED: MIDAZOLAM 2 MG/2 ML INJ ONE (08:41)
[2019-10-20] MEDS ORDERED: FENTANYL CITRATE INJ/PF 100 MCG/2 ML AMPUL ONE (08:41)
[2019-10-20] MEDS ORDERED: CEFAZOLIN INJ 1 GM VIAL ONE (08:57)
--- NOTE | 2019-10-20 09:44 | RADIOLOGY REPORT (SQ) ---
EXAM DESCRIPTION: TUNNELED CENTRAL LINE COMPLETED DATE/TIME: 10/20/2019 9:30 am REASON FOR STUDY: NEED FOR VASCULAR ACCESS T82.858A STENOSIS OF OTHER VASCULAR PROSTH DEV/GRFT, INI T COMPARISON: None. FLUOROSCOPY TIME: 0.8 minutes Spot images saved to PACS. TECHNIQUE: Intra-operative images acquired during surgical procedure to evaluate progress. NUMBER OF IMAGES: 30 LIMITATIONS: None. FINDINGS: Fluoroscopy was provided for intraoperative procedure. Please refer to the operative repo rt for further discussion. IMPRESSION: IMAGE(S) OBTAINED DURING PROCEDURE. COMMENT: Quality ID [id number]: Final reports for procedures using fluoroscopy that document radiation exp osure indices, or exposure time and number of fluorographic images (if radiation exposure indices are not available) Please consult full operative report of the attending physician for description of the procedure. TECHNICAL DOCUMENTATION: JOB ID: [id number] [email or web address] All Rights Reserved Reading location - IP/workstation name: [email or web address]
--- NOTE | 2019-10-20 09:49 | Discharge Summary ---
Discharge Summary (SDC) - Discharge Final Diagnosis: #1 CKD 5. 2. Back pain. 3. Diabetes mellitus type 2. 4. Hypertension. Date of Surgery: 10/20/19 Discharge Date: 10/20/19 Condition: Fair Treatment or Instructions: Discharge home [after recovery per ASU criteria]. Diet , [renal],as tolerated, when fully awake advance as tolerated. Activities within moderation encouraged. Follow up in my office by appointment in about [1 week]. Call for appointment. Leave wounds [covered], [keep clean and dry, until office visit in 1 week]. Hold of on school/work [until evaluation in office]. Meds per med rec. May shower [in 48 hrs], [try to keep operated area as dry as possible]. Referrals: QUINCY ALEJO MD [Primary Care Provider] - Discharge Diet: Other (Comments) - Renal, diabetic.
--- NOTE | 2019-10-20 10:48 | Operative Report ---
Operative Report DATE OF SURGERY: 10/20/19 PREOPERATIVE DIAGNOSIS: #1 CKD 5. 2. Back pain. 3. Diabetes mellitus type 2. 4. Hypertension. POSTOPERATIVE DIAGNOSIS: #1 CKD 5. 2. Back pain. 3. Diabetes mellitus type 2. 4. Hypertension. OPERATION: 1. Ultrasound evaluation of the right internal jugular vein. 2. Insertion of PermCath via real-time ultrasound guided access in the right internal jugular vein. 3. Angiogram and interpretation. SURGEON: ETHAN SANFORD EXECUTIVE MANAGER: None. ANESTHESIA: Moderate Sedation TISSUE REMOVED OR ALTERED: Not applicable. COMPLICATIONS: None. ESTIMATED BLOOD LOSS: 2 mL. INTRAOPERATIVE FINDINGS: Of a satisfactory right internal jugular vein to support permacatheter. Good position of catheter with the tip well down in the right atrial pool. Easy egress of blood and ingress of heparinized solution. Final chest x-ray shows hardware in good position, no untoward finding. PROCEDURE: After obtaining informed consent, the patient was taken to the [Hemstitching Machine Operator] and positioned supine. The [right neck] and chest were prepared with chlorhexidine and draped out with sterile linen. After the " universal timeout", in which it was verified that the patient continued to receive antibiotic, the procedure commenced. A steriley sheathed ultrasound probe was used to evaluate the [right internal jugular] vein. Local anesthesia was infiltrated adjacent to the probe. Access into the [right internal jugular] vein was obtained using a micropuncture needle, followed by micropuncture wire and then a micropuncture catheter. This was followed by introduction of a 0.035 guidewire the tip of which was placed down into the inferior vena cava . A 23 cm long [split catheter] was now positioned over the chest and an exit site marked and locally anesthetized ,the catheter was placed between the 2 incisions. Proximally, the catheter was now positioned using a peel-away sheath, after dilation. Easy ingress of heparinized solution and egress of blood obtained through both ports. A completion angiogram was done by injecting contrast. The findings were as dictated. The neck incision was now closed using interrupted 3-0 PDS to the subcutaneous tissues, the catheter was anchored at the exit site using 3-0 PDS. A Biopatch device was now placed adjacent to the catheter. Dressings were applied and the procedure concluded. Exposure time: [0.8 minutes]. Exposure: 9.61 mGy. Contrast amount: [5 mL] of [id number] low osmolality. Copies of the dictated operative report for Dr. Ethan Ornelas MD.concluded. Copies of the dictated operative report for Dr. Ethan Ornelas MD.
[2019-10-20 11:29] VITALS: BP 148/69
== END 2019-10-20 11:00 | disposition home or self-care (01) ==
LOC: CCL 06:00
PROVIDERS: ATTEND Surgery
DX: T82.858A Stenosis of other vascular prosthetic devices, implants and grafts, initial encounter (principal); Y83.2 Surgical operation with anastomosis, bypass or graft as the cause of abnormal reaction of the patient, or of later complication, without mention of misadventure at the time of the procedure; Z79.82 Long term (current) use of aspirin; Z79.899 Other long term (current) drug therapy; Z88.5 Allergy status to narcotic agent; I25.10 Atherosclerotic heart disease of native coronary artery without angina pectoris; E78.5 Hyperlipidemia, unspecified; J44.9 Chronic obstructive pulmonary disease, unspecified; E10.22 Type 1 diabetes mellitus with diabetic chronic kidney disease; I12.0 Hypertensive chronic kidney disease with stage 5 chronic kidney disease or end stage renal disease; N18.5 Chronic kidney disease, stage 5; Z85.038 Personal history of other malignant neoplasm of large intestine; Z90.49 Acquired absence of other specified parts of digestive tract
CPT/HCPCS: 36415; 82962; 84132; 36558; 76937; 77001; C1713; C1752; J2250; J3490 ×2; J0690; A9270 ×2; J3010; J1644

== ENCOUNTER → 2019-11-10 | Day surgery (SDC) | payer MEDICARE ==
[~2019-11-10] MED LIST: BACITRACIN INJ 50,000 UNIT VIAL ONE; BUPIVACAINE HCL 0.25 % INJ/PF (2.5 MG/1 ML) 30 ML VIAL ONE; CEFAZOLIN 1 GM/D5W RTU 1 GM/50 ML RTUPB IV ONE; CEFAZOLIN 1 GM/D5W RTU 1 GM/50 ML RTUPB IV PRN; DIPHENHYDRAMINE HCL 50 MG/ML VIAL IV PRN; FENTANYL CITRATE INJ/PF 100 MCG/2 ML AMPUL IV PRN; FENTANYL CITRATE INJ/PF 100 MCG/2 ML AMPUL ONE; HEPARIN SOD (PORCINE) 1,000 UNIT/ML 10 ML VIAL ONE; KETAMINE HCL INJ 500 MG/10 ML VIAL ONE; LIDOCAINE 0.5% INJ-PF (5 MG/ML) 50 ML SDV ONE; LIDOCAINE 1% INJ-PF (10 MG/ML) 30 ML SDV ONE; LIDOCAINE 1%/EPINEPHRINE INJ 20 ML VIAL ONE; LIDOCAINE 2% INJ (20 MG/ML) 20 ML MDV ONE; MEPERIDINE HCL/PF INJ 25 MG/1 ML DISP.SYRIN IV PRN; MIDAZOLAM 2 MG/2 ML INJ ONE; MORPHINE SULFATE 10 MG/ML INJ IV PRN; NITROGLYCERIN/D5W 50 MG/250 ML RTUINJ IV ONE; ONDANSETRON HCL INJ/PF 4 MG/2 ML SDV IV PRN; ONDANSETRON HCL INJ/PF 4 MG/2 ML SDV ONE; PROMETHAZINE HCL INJ 25 MG/1 ML VIAL IV PRN; PROPOFOL INJ 200 MG/20 ML VIAL IV ONE; ROPIVACAINE HCL 0.5% INJ/PF (5 MG/1 ML) 30 ML SDV ONE
[2019-11-10 10:53] LABS: HEMATOCRIT 25.8 % (36.0-47.0); HEMOGLOBIN 8.7 g/dL (12.0-15.5); MEAN CORPUSCULAR HEMOGLOBIN 26.7 pg (27.0-33.4); MEAN CORPUSCULAR HGB CONC 33.7 g/dL (32.0-36.0); MEAN CORPUSCULAR VOLUME 79 fl (80-97); PLATELET COUNT 240 10^3/uL (150-450); RED BLOOD COUNT 3.27 10^6/uL (3.72-5.28); RED CELL DISTRIBUTION WIDTH 17.6 % (11.5-14.0); WHITE BLOOD COUNT 5.7 10^3/uL (4.0-10.5)
[2019-11-10 11:21] LABS: ANION GAP 11 (5-19); BLOOD UREA NITROGEN 15 mg/dL (7-20); CALCIUM 9.1 mg/dL (8.4-10.2); CARBON DIOXIDE 28 mmol/L (22-30); CHLORIDE 97 mmol/L (98-107); GLUCOSE 106 mg/dL (75-110); POTASSIUM 3.4 mmol/L (3.6-5.0)
--- NOTE | 2019-11-10 14:19 | Discharge Summary ---
Discharge Summary (SDC) - Discharge Final Diagnosis: #1 end-stage renal disease. 2. History of colon cancer. 3. Diabetes mellitus type 2. 4. Hypertension. Date of Surgery: 11/10/19 Discharge Date: 11/10/19 Condition: Good Treatment or Instructions: Discharge home [after recovery per ASU criteria]. Diet , [renal],as tolerated, when fully awake advance as tolerated. Activities within moderation encouraged. Follow up in my office by appointment in about [1 week]. Call for appointment. Leave wounds [covered], [keep clean and dry, until office visit in 1 week]. Hold of on school/work [until evaluation in office]. Meds per med rec. May shower [in 48 hrs], [try to keep operated area as dry as possible]. Prescriptions: Oxycodone HCl/Acetaminophen [Percocet 5-325 mg Tablet] 1 tab PO ASDIR PRN #15 tab PRN Reason: Referrals: QUINCY ALEJO MD [Primary Care Provider] - Discharge Diet: Other (Comments) - Renal, diabetic. Respiratory Treatments at Home: Deep Breathing/Coughing Discharge Activity: Activity As Tolerated Report the Following to Your Physician Immediately: Shortness of Breath, Unusual Bleeding
--- NOTE | 2019-11-10 14:30 | Operative Report ---
Operative Report DATE OF SURGERY: 11/10/19 PREOPERATIVE DIAGNOSIS: #1 end-stage renal disease. 2. History of colon cance r. 3. Diabetes mellitus type 2. 4. Hypertension. POSTOPERATIVE DIAGNOSIS: #1 end-stage renal disease. 2. History of colon cancer. 3. Diabetes mellitus type 2. 4. Hypertension. OPERATION: Insertion of a transposed radiocephalic fistula, left forearm. SURGEON: ETHAN SANFORD BUS PERSON DISHWASHER: None. ANESTHESIA: LMAC TISSUE REMOVED OR ALTERED: Not applicable. COMPLICATIONS: None. ESTIMATED BLOOD LOSS: 10 mL. INTRAOPERATIVE FINDINGS: Of disease, calcified artery, adequate size. Cephalic vein tapered in distal forearm, satisfactory caliber at anastomosis in distal third. Able to accommodate a 3 mm coronary dilator. Based on findings the outlook is cautiously optimistic for a usable fistula. The vein is deep and superficial transposition may well be needed. The cephalic vein is tenuous at best after the elbow so there will be a limited area for dialysis. The next best option is a transposed basilic vein fistula in this patient with adequate arteries, poor veins. Even finding a vein for access today was difficult. This procedure was greatly facilitated by a nerve block by anesthesia. PROCEDURE: Operative Report PROCEDURE: After reviewing the procedure with the patient, in particular that the type of fistula was likely to be complex, she was taken to the operating room. The patient was sedated and the right upper external] prepared with chlorhexidine and draped out with sterile linen. After the "" universal timeout", in which it was verified that the patient [received IV antibiotics] the procedure commenced. The sterilely sheathed ultrasound probe was used to evaluate the size and topographic location of the existing basilic vein in the forearm. This was transcribed topographical using a marking pen. Local anesthesia was infiltrated and a longitudinal incision started in the distal third of forearm over predicted vein, seemed adequate to the distal forearm.. The cephalic vein was now dissected away from its branches which were either clipped and/or ligated and divided. In this way the cephalic vein was freed up for its length needed for transposition. The radial artery was now evaluated by ultrasound and a suitable location for its dissection marked. Local anesthesia was infiltrated and the incision made and radial artery was dissected out for a distance of about 2 cm. It was deeply placed and intramuscular at this point. Rubber loops were placed on either end.. The distal vein was transected and it was irrigated with heparinized solution and easily accepted up to about a 3 mm coronary dilator. A hemostat was now used to dissect a tunnel in the immediate subcutaneous plane in the area of fistula transposition. The patient had been given 2500 units of heparin intravenously and the artery controlled proximally and distally with the rubber loops. An arteriotomy was made 1.25 cm in length. The artery was irrigated with heparinized solution. The adjacent vein was now tailored to fit the arteriotomy and an end vein to side artery anastomosis constructed. The fistula was evaluated and found to be working adequately. Closure was commenced. The fistula was rechecked from time to time. The wounds were now closed using interrupted 3-0 PDS of the subcutaneous tissues. Great care was taken to avoid compressing the fistula. The skin was closed with a continuous subcutaneous suture of 4-0 Monocryl. Steri-Strips were applied over benzoin and then adherent dressing. Externally the fistula was auscultated with stethoscope and found to be functional. The procedure was concluded.
[2019-11-10 16:41] VITALS: BP 153/72
--- NOTE | 2019-11-10 18:33 | EKG REPORT ---
SEVERITY:- ABNORMAL ECG - SINUS RHYTHM RBBB AND LAFB PROBABLE LVH WITH SECONDARY REPOL ABNRM : Confirmed by: Kezia Mensah 10-Nov-2019 18:32:27
== END ==
LOC: OROUT 09:46
PROVIDERS: ATTEND Surgery
DX: E11.22 Type 2 diabetes mellitus with diabetic chronic kidney disease (principal); I12.0 Hypertensive chronic kidney disease with stage 5 chronic kidney disease or end stage renal disease; N18.6 End stage renal disease; Z88.5 Allergy status to narcotic agent; R22.9 Localized swelling, mass and lump, unspecified; L72.0 Epidermal cyst; Z85.038 Personal history of other malignant neoplasm of large intestine; I25.10 Atherosclerotic heart disease of native coronary artery without angina pectoris; Z79.899 Other long term (current) drug therapy; Z79.82 Long term (current) use of aspirin; Z79.4 Long term (current) use of insulin; Z99.2 Dependence on renal dialysis; D64.9 Anemia, unspecified
CPT/HCPCS: 36415; 85027; 80048; 93005; 93010; 01844; 36821; J2795; J2250; J3490 ×7; J0690; J3010; J1644; J2405; J2704; 1844

== ENCOUNTER → 2020-08-18 | Outpatient (CLI) | payer MEDICARE ==
--- NOTE | 2020-08-19 09:22 | RADIOLOGY REPORT (SQ) ---
EXAM DESCRIPTION: MRI HEAD WITHOUT IMAGES COMPLETED DATE/TIME: 08/18/2020 4:31 pm REASON FOR STUDY: (R41.2)RETROGRADE AMNESIA R41.2 RETROGRADE AMNESIA COMPARISON: CT brain 07/18/2019 MRI brain 06/15/2017 TECHNIQUE: Multiplanar imaging includes non-contrasted T1, T2, FLAIR, and diffusion with ADC map seq uences. Images stored on PACS. LIMITATIONS: None. FINDINGS: ANATOMY: No developmental anomalies. Normal vascular flow voids. Pituitary fossa normal. CSF SPACES: Normal in size and contour. No hemorrhage. CEREBRUM: Sulci and gyri normal in size and contour. Minimal spotty age-appropriate increased white matter signal on FLAIR imaging. No evidence of hemorrhage, mass, or extraaxial fluid collection. POSTERIOR FOSSA: No signal alteration. No hemorrhage. No edema, masses or mass effect. Internal dali tory canals, cerebello-pontine angles, mastoids normal. DIFFUSION IMAGING: Negative for acute or sub-acute infarction. ORBITS: No masses. Globes post cataract surgery PARANASAL SINUSES: No fluid levels. Mucosa normal. OTHER: No other significant finding. IMPRESSION: NORMAL MRI OF THE BRAIN WITHOUT INTRAVENOUS GADOLINIUM CONTRAST. EVIDENCE OF ACUTE STROKE: NO. TECHNICAL DOCUMENTATION: JOB ID: [id number] [email or web address]- All Rights Reserved Reading location - IP/workstation name: [email or web address]
== END ==
LOC: RAD 15:13
PROVIDERS: ATTEND Internal Medicine
DX: R41.2 Retrograde amnesia (principal)
CPT/HCPCS: 70551

== ENCOUNTER 2020-09-14 23:53 | Inpatient (IN) | payer MEDICARE ==
[2020-09-15 00:40] LABS: APPEARANCE,URINE CLOUDY; BILIRUBIN,URINE NEGATIVE (NEGATIVE); COLOR,URINE AMBER; GLUCOSE, URINE NEGATIVE (NEGATIVE); KETONES,URINE TRACE mg/dL (NEGATIVE); PROTEIN,URINE >=500 mg/dL (NEGATIVE); URINE SPECIFIC GRAVITY 1.016; UROBILINOGEN,URINE NEGATIVE mg/dL (<2.0)
[2020-09-15 01:01] LABS: ABSOLUTE LYMPHOCYTES (AUTO) 0.4 10^3/uL (0.5-4.7); ABSOLUTE MONOCYTES (AUTO) 0.4 10^3/uL (0.1-1.4); BASOPHILS % (AUTO) 1.1 % (0-2); EOSINOPHILS % (AUTO) 0.2 % (0-6); HEMATOCRIT 22.2 % (36.0-47.0); LYMPHOCYTES % (AUTO) 9.1 % (13-45); MEAN CORPUSCULAR HEMOGLOBIN 27.4 pg (27.0-33.4); MEAN CORPUSCULAR HGB CONC 32.9 g/dL (32.0-36.0); MEAN CORPUSCULAR VOLUME 83 fl (80-97); MONOCYTES % (AUTO) 10.8 % (3-13); PLATELET COUNT 195 10^3/uL (150-450); RED BLOOD COUNT 2.67 10^6/uL (3.72-5.28); RED CELL DISTRIBUTION WIDTH 15.4 % (11.5-14.0); SEGMENTED NEUTROPHILS % (AUTO) 78.8 % (42-78); TOTAL CELLS COUNTED % (AUTO) 100 %; WHITE BLOOD COUNT 3.9 10^3/uL (4.0-10.5)
[2020-09-15 01:02] LABS: HEMOGLOBIN 7.3 g/dL (12.0-15.5); INTERNATIONAL RATION (INR) 1.03; PROTHROMBIN TIME 13.7 SEC (11.4-15.4); VENOUS BLOOD BASE EXCESS 0.8 mmol/L; VENOUS BLOOD HCO3 25.6 mmol/L (20-32); VENOUS BLOOD PCO2 41.4 mmHg (35-63); VENOUS BLOOD PH 7.41 (7.30-7.42)
[2020-09-15 01:33] LABS: ALBUMIN 3.2 g/dL (3.5-5.0); ALKALINE PHOSPHATASE 53 U/L (38-126); ANION GAP 10 (5-19); ASPARTATE AMINO TRANSFERASE 38 U/L (14-36); BILIRUBIN,DIRECT 0.5 mg/dL (0.0-0.4); BILIRUBIN,TOTAL 0.6 mg/dL (0.2-1.3); BLOOD UREA NITROGEN 31 mg/dL (7-20); CALCIUM 7.4 mg/dL (8.4-10.2); CARBON DIOXIDE 27 mmol/L (22-30); CHLORIDE 98 mmol/L (98-107); GLUCOSE 121 mg/dL (75-110); POTASSIUM 3.5 mmol/L (3.6-5.0); TOTAL PROTEIN 6.4 g/dL (6.3-8.2)
[2020-09-15] MEDS ORDERED: METRONIDAZOLE 500 MG/NS RTU 500 MG/100 ML RTUPB IV ONE (03:23)
[2020-09-15] MEDS ORDERED: ACETAMINOPHEN 325 MG TABLET PO ONE (03:24)
[2020-09-15 03:32] LABS: A TYPE INFLUENZA AG NEGATIVE (NEGATIVE); B INFLUENZA AG NEGATIVE (NEGATIVE)
--- NOTE | 2020-09-15 04:14 | ER Document Report ---
ED General - General Chief Complaint: General Weakness Stated Complaint: WEAKNESS Notes: 74-year-old female with spinal stenosis with chronic lower extremity weakness ti mes years uses wheelchair, ESRD on dialysis last dialysis 09/14/2020 presents with weakness for the past approximately 4 days. Patient just says that she feels weak and she cannot do anything, was able to go to dialysis day prior to presentation and complete dialysis without complication but they said that she had a fever there. endorses patient having 1 loose stool several days ago that was nonbloody or black. Also few days ago had one episode of nonbloody nonbilious emesis. Has been tolerating p.o. otherwise. Otherwise patient has not had any symptoms. Patient is able to give history and denies having any headache, neck pain or stiffness, chest pain, cough, shortness of breath, body aches, abdominal pain, GI bleed history, recent antibiotics, diarrhea, urinary symptoms, change in her back pain, sick contacts TRAVEL OUTSIDE OF THE [place] IN LAST 30 DAYS: No - Related Data Allergies/Adverse Reactions: codeine [Codeine] Allergy (Mild, Verified 11/10/19 10:01) meperidine HCl [From Demerol] Allergy (Mild, Verified 11/10/19 10:01) morphine Allergy (Verified 11/10/19 10:01) pregabalin [From Lyrica] Allergy (Verified 11/10/19 10:01) Past Medical History - General Information source: Patient, Relative, [facility] Records - Social History Smoking Status: Never Smoker Frequency of alcohol use: None Drug Abuse: None Family History: Reviewed & Not Pertinent, CAD Patient has homicidal ideation: No - Past Medical History Cardiac Medical History: Reports: Hx Coronary Artery Disease, Hx Hypercholesterolemia, Hx Hypertension Denies: Hx Heart Attack Pulmonary Medical History: Reports: Hx COPD - cpap Denies: Hx Asthma, Hx Bronchitis, Hx Pneumonia Neurological Medical History: Denies: Hx Cerebrovascular Accident, Hx Seizures Endocrine Medical History: Reports: Hx Diabetes Mellitus Type 1, Hx Diabetes Mellitus Type 2 Renal/ Medical History: Reports: Hx Ovarian Cysts. Denies: Hx Peritoneal Dialysis Malignancy Medical History: Reports: Hx Colorectal Cancer - Status post colon resection. Musculoskeletal Medical History: Denies Hx Arthritis Psychiatric Medical History: Denies: Hx Depression Past Surgical History: Reports: Hx Abdominal Surgery - colon resection, Hx Cardiac Catheterization - stents x 2, Hx Gynecologic Surgery, Hx Tubal Ligation, Other - Colon resection. Denies: Hx Hysterectomy - Immunizations Immunizations up to date: Yes Hx Diphtheria, Pertussis, Tetanus Vaccination: Yes Review of Systems - Review of Systems Notes: REVIEW OF SYSTEMS: CONSTITUTIONAL : Denies fever, chills, or sweats. EENT: Denies recent cold/sinus symptoms, denies throat pain CARDIOVASCULAR: Denies chest pain, JONATHAN RESPIRATORY: Denies cough, denies shortness of breath. GASTROINTESTINAL: Denies abdominal pain, nausea/vomiting. GENITOURINARY: Denies difficulty urinating, painful urination. FEMALE GENITOURINARY: Denies abnormal vaginal bleeding, vaginal discharge. MUSCULOSKELETAL: Denies neck pain, back pain. SKIN: Denies rash or skin lesions. HEMATOLOGIC : Denies easy bruising or bleeding. LYMPHATIC: Denies swollen, enlarged glands. NEUROLOGICAL: Denies headache, denies change in gait. PSYCHIATRIC: Denies anxiety or stress or depression. Physical Exam - Vital signs Vitals: Temp Pulse Resp BP Pulse Ox 101.6 F H 72 21 H 159/64 H 81 L 09/14/20 23:53 09/14/20 23:53 09/14/20 23:53 09/14/20 23:53 09/14/20 23:53 - Notes Notes: PHYSICAL EXAMINATION: GENERAL: Chronically ill-appearing fatigued appearing elderly woman lying in stretcher in no acute distress HEAD: Atraumatic, normocephalic. EYES: Pupils equal round and appropriate constriction, sclera anicteric, conjunctiva are normal. ENT: nares patent, moist mucous membranes. NECK: Full range of motion, supple without lymphadenopathy LUNGS: Breath sounds clear to auscultation bilaterally and equal. No wheezes rales or rhonchi. Normal respiratory rate and effort HEART: Regular rate and rhythm without murmurs ABDOMEN: Soft, nontender, no guarding, no masses, no CVAT, brown guaiac positive stool on rectal with no gross blood EXTREMITIES: Normal range of motion, no pitting or edema. No cyanosis. NEUROLOGICAL: Awake, alert, conversing appropriately, poor rectal tone, 1/5 strength in bilateral lower extremities which is patient's baseline PSYCH: Normal mood, normal affect. SKIN: Warm, Dry, normal turgor, no rashes or lesions noted. Course - Re-evaluation Re-evalutation: 09/15/20 04:19 Patient with significant generalized body weakness for 4 days and fever, no specific findings on exam, guaiac positive stool but only endorses 1 loose nonbloody stool several days prior to arrival. Given patient's spinal stenosis and baseline neuro deficits will obtain CT abdomen pelvis to see signs of diverticular bleed. [facility] records states patient has colon cancer history, may be source of bleeding. No signs of active significant bleeding requiring emergent lower or upper endoscopy. Vital signs stable. Lactate normal. Obtained blood cultures and ordered Cipro Flagyl pending CT abdomen pelvis. Charge nurse confirmed with administration that we have capacity to accept patients requiring dialysis at this time. Will place nephrology consult set nephrology is aware. Rule out Covid 19, pneumonia, influenza, rhabdo. No clear UTI on UA but will be covered with Cipro. no signs of meningitis or intracranial source. - Vital Signs Vital signs: Temp Pulse Resp BP Pulse Ox 98.9 F 72 16 132/53 H 83 L 09/15/20 06:01 09/14/20 23:53 09/15/20 06:01 09/15/20 06:01 09/15/20 06:01 - Laboratory Results Result Diagrams: 09/15/20 00:38 09/15/20 00:38 Laboratory Results Interpreted: 09/15/20 09/15/20 09/15/20 00:10 00:26 00:38 WBC 3.9 L RBC 2.67 L Hgb 7.3 L Hct 22.2 L RDW 15.4 H Lymph % (Auto) 9.1 L Absolute Lymphs (auto) 0.4 L Seg Neutrophils % 78.8 H Sodium Potassium BUN Creatinine Est GFR ( Amer) Est GFR (MDRD) Non-Af Glucose POC Glucose 122 H Calcium Direct Bilirubin AST Albumin Urine Protein >=500 H Urine Ketones TRACE H Leukocyte Esterase Rfl LARGE H SARS-CoV-2 Rap RNA(RT-PCR) 09/15/20 09/15/20 00:38 02:52 WBC RBC Hgb Hct RDW Lymph % (Auto) Absolute Lymphs (auto) Seg Neutrophils % Sodium 135.4 L Potassium 3.5 L BUN 31 H Creatinine 4.70 H Est GFR ( Amer) 11 L Est GFR (MDRD) Non-Af 9 L Glucose 121 H POC Glucose Calcium 7.4 L Direct Bilirubin 0.5 H AST 38 H Albumin 3.2 L Urine Protein Urine Ketones Leukocyte Esterase Rfl SARS-CoV-2 Rap RNA(RT-PCR) POSITIVE H Critical Laboratory Results Reviewed: No Critical Results - Radiology Results Critical Radiology Results Reviewed: No Critical Results - EKG Interpretation by Me Additional EKG results interpreted by me: 09/15/20 07:04 Sinus rhythm, no significant ST elevations or depressions, no significant T wave abnormalities, QTc 495 Discharge - Discharge Clinical Impression: Generalized weakness Fever Qualifiers: Fever type: unspecified Qualified Code(s): R50.9 - Fever, unspecified GI bleed Qualifiers: GI bleed type/associated pathology: unspecified gastrointestinal hemorrhage type Qualified Code(s): K92.2 - Gastrointestinal hemorrhage, unspecified Disposition: ADMITTED INPATIENT Admitting Provider: [facility] Unit Admitted: Medical Floor
--- NOTE | 2020-09-15 06:27 | RADIOLOGY REPORT (SQ) ---
EXAM DESCRIPTION: X-ray single view chest. CLINICAL HISTORY: 74 years Female, ESRD weakness fever COMPARISON: 03/30/2019 TECHNIQUE: Single portable x-ray view of the chest performed on 09/15/2020 at 5:11 AM FINDINGS: Lungs are well-expanded. There is mild perihilar vascular congestion. There is no evidence of a pneumothorax. The cardiac silhouette is stable and is prominent. The mediastinal contours are normal. No acute osseous abnormality is identified. No focal soft tissue abnormalities are seen. Lines and tubes: There is a dual-lumen right IJ central venous catheter which terminates in the region of the cavoatrial junction. IMPRESSION: 1. Mild vascular congestion. 2. Stable prominence of the cardiac silhouette. 3. Right IJ central venous dialysis catheter tip terminates in the region of the cavoatrial junction.
--- NOTE | 2020-09-15 07:05 | RADIOLOGY REPORT (SQ) ---
CLINICAL HISTORY: fever guaiac positive stool spinal stenosis COMPARISON: 11/19/2018. TECHNIQUE: CT ABDOMEN PELVIS WITHOUT IV CONTRAST on 09/15/2020 3:22 AM OB/GYN PHYSICIAN This exam was performed according to our departmental dose-optimization program, which includes automated exposure control, adjustment of the mA and/or kV according to patient size and/or use of iterative reconstruction technique. FINDINGS: There are small pleural effusions. The heart is enlarged. There is patchy bibasilar airspace disease. Abdomen: The liver is normal in appearance. There is no biliary dilatation. Gallbladder is normally distended with trace sludge. There is a transverse duodenal diverticulum. The pancreas and spleen are normal in appearance. Kidneys are mildly atrophic. Adrenal glands are normal. Abdominal aorta is normal in course and caliber without aneurysm. There is no free air. There is no retroperitoneal adenopathy. Pelvis: There is no bowel obstruction. Urinary bladder is unremarkable. There is no free fluid. Uterus is not clearly seen. Appendix is not clearly seen. There is small amount of air in the bladder. Skeleton: There are no acute osseous findings. No suspicious bony lesions. IMPRESSION: Small pleural effusions. No definite acute inflammatory process otherwise.
--- NOTE | 2020-09-15 07:22 | EKG REPORT ---
SEVERITY:- ABNORMAL ECG - SINUS RHYTHM IVCD, CONSIDER ATYPICAL RBBB LVH WITH IVCD AND SECONDARY REPOL ABNRM LAFB : Confirmed by: Tuan Hirsch MD 15-Sep-2020 07:21:35
[2020-09-15] MEDS ORDERED: DEXTROSE 50%-WATER 25 GM/50 ML DISP.SYRIN IV PRN ×2 (08:29)
[2020-09-15] MEDS ORDERED: DEXTROSE 40% GEL 15 GM TUBE PO PRN ×2 (08:29)
[2020-09-15] MEDS ORDERED: GLUCAGON,HUMAN RECOMB 1 MG INJ IM PRN (08:29)
[2020-09-15 09:22] LABS: ARTERIAL BLOOD BASE EXCESS 1.3 mmol/L; ARTERIAL BLOOD HCO3 25.7 mmol/L (20-24); ARTERIAL BLOOD O2 SATURATION 84.7 % (94-98); ARTERIAL BLOOD PCO2 39.9 mmHg (35-45); ARTERIAL BLOOD PH 7.43 (7.35-7.45); ARTERIAL BLOOD PO2 47.8 mmHg (80-100); ARTERIAL BLOOD TOTAL CO2 26.9 mmol/L (21-25)
[2020-09-15 09:24] LABS: ARTERIAL BLOOD FIO2 2L
[2020-09-15 09:31] LABS: INTERNATIONAL RATION (INR) 1.12; PROTHROMBIN TIME 14.6 SEC (11.4-15.4)
[2020-09-15 09:32] LABS: FIBRINOGEN 475 mg/dL (209-497); PARTIAL THROMBOPLASTIN TIME 42.8 SEC (23.5-35.8)
[2020-09-15 09:35] LABS: A TYPE INFLUENZA AG NEGATIVE (NEGATIVE); D-DIMER 1.29 ug/mL (0.00-0.50)
[2020-09-15 09:36] LABS: B INFLUENZA AG NEGATIVE (NEGATIVE)
[2020-09-15 09:42] LABS: C-REACTIVE PROTEIN 52.4 mg/L (<10.0)
[2020-09-15] MEDS: ASCORBIC ACID 500 MG TABLET PO SCH ×2 (10:10→18:54)
[2020-09-15] MEDS: DEXAMETHASONE SOD PHOS INJ 10 MG/1 ML VIAL IV SCH (10:10)
[2020-09-15] MEDS: CHOLECALCIFEROL (D3) 1,000 UNIT (25 MCG) TABLET PO SCH (10:10)
[2020-09-15] MEDS: AZITHROMYCIN 250 MG TABLET PO SCH (10:10)
[2020-09-15] MEDS: ASPIRIN 81 MG TABLET, ENT COATED PO SCH (10:10)
[2020-09-15] MEDS: ZINC SULFATE 220 MG CAPSULE PO SCH (10:10)
[2020-09-15] MEDS: INSULIN LISPRO 100 UNIT/ML 3 ML VIAL SUBCUT SCH ×2 (10:22→18:54)
[2020-09-15] MEDS: OXYCODONE-ACETAMINOPHEN 5-325 MG TABLET PO PRN (10:48)
[2020-09-15] MEDS ORDERED: REMDESIVIR 200 MG in NORMAL SALINE 250 ML IV ONE (15:30)
[2020-09-15] MEDS: HEPARIN SOD (PORCINE) 5,000 UNIT/ML 1 ML VIAL SUBCUT SCH (16:37)
--- NOTE | 2020-09-15 20:00 | PDOC H&P ---
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 She says she feels weak, and she cannot do anything she was able to get to dialysis the day before she presented to the emergency room for evaluation. She was accompanying by the , the endorses that patient had loose s tool several days ago was not bloody and she also had fever. I was called by the ED physician to admit and to the hospital, SARS-CoV-2 test was done, it was positive.When I saw her on the floor she was very somnolent, she responds to tactile stimulus and she falls back to sleep very quickly.The arterial blood gas on FiO2 2 L PO2 47.8, PCO2 39.9, bicarbonate 25.7, consistent with hypoxemia Past Medical History Cardiac Medical History: Reports: Coronary Artery Disease, Hyperlipidema, Hypertension Denies: Myocardial Infarction Pulmonary Medical History: Reports: Chronic Obstructive Pulmonary Disease (COPD) - cpap Endocrine Medical History: Reports: Diabetes Mellitus Type 2 Renal/ Medical History: Reports: End Stage Renal Disease Malignancy Medical History: Reports: Colorectal Cancer - Status post colon resection. Musculoskeltal Medical History: Denies: Arthritis Psychiatric Medical History: Denies: Depression Hematology: Reports: Anemia Past Surgical History Past Surgical History: Reports: Cardiac Catheterization - stents x 2, Tubal Ligation, Other - Colon resection Social History Smoking Status: Never Smoker Frequency of Alcohol Use: None Hx Recreational Drug Use: No Drugs: None Hx Prescription Drug Abuse: No Family History Family History: Reviewed & Not Pertinent, CAD Parental Family History Reviewed: Yes Children Family History Reviewed: Yes Sibling(s) Family History Reviewed.: Yes Medication/Allergy Home Medications: Aspirin [Ecotrin 81 mg EC Tablet] 81 mg PO DAILY 04/08/19 Atorvastatin Calcium [Lipitor 80 mg Tablet] 80 mg PO QHS 04/08/19 Metoprolol Tartrate [Lopressor 100 mg Tablet] 100 mg PO BID 04/08/19 Furosemide [Lasix 40 mg Tablet] 40 mg PO BID #180 tablet 04/10/19 Hydralazine HCl [Apresoline 50 mg Tablet] 100 mg PO Q8 #90 tablet 04/10/19 Valsartan [Diovan 160 mg Tablet] 320 mg PO DAILY #90 tablet 04/10/19 Isosorbide Mononitrate [Imdur 30 mg Tablet.er] 30 mg PO DAILY tab.er.24h 07/28/19 Amlodipine Besylate [Norvasc 10 mg Tablet] 10 mg PO DAILY 09/20/19 Cetirizine HCl [Zyrtec 10 mg Tablet] 10 mg PO DAILY 09/20/19 Doxazosin Mesylate [Cardura 4 mg Tablet] 4 mg PO BID 09/20/19 Meclizine HCl [Antivert 25 mg Tablet] 25 mg PO TIDP PRN 09/20/19 Montelukast Sodium [Singulair 10 mg Tablet] 10 mg PO DAILY 09/20/19 Ondansetron HCl [Zofran 4 mg Tablet] 4 mg PO DAILYP PRN 09/20/19 Acyclovir [Zovirax 800 mg Tablet] 800 mg PO 5XD 09/15/20 Buspirone HCl 15 mg PO BID 09/15/20 Clonidine HCl [Catapres 0.2 mg Tablet] 0.2 mg PO TID 09/15/20 Donepezil HCl [Aricept] 5 mg PO QHS 09/15/20 Doxepin HCl [Silenor] 6 mg PO QHS 09/15/20 Insulin Glargine,Hum.rec.anlog [Lantus Insulin 100 Unit/1 ml 10 ml] 10 units SQ DAILY 09/15/20 Insulin Lispro [Humalog Kwikpen U-100] 16 unit SQ TID 09/15/20 Lactulose 10 gm PO DAILY 09/15/20 Nifedipine [Nifedipine ER] 90 mg PO DAILY 09/15/20 Allergies/Adverse Reactions: codeine [Codeine] Allergy (Mild, Verified 09/15/20 11:09) meperidine HCl [From Demerol] Allergy (Mild, Verified 09/15/20 11:09) morphine Allergy (Verified 09/15/20 11:09) pregabalin [From Lyrica] Allergy (Verified 09/15/20 11:09) Review of Systems Constitutional: PRESENT: fatigue. ABSENT: chills, fever(s), headache(s), weight gain, weight loss Eyes: ABSENT: visual disturbances Ears: ABSENT: hearing changes Cardiovascular: ABSENT: as per HPI, chest pain, dyspnea on exertion, edema, orthropnea, palpitations, other Respiratory: ABSENT: cough, hemoptysis Gastrointestinal: PRESENT: diarrhea Genitourinary: ABSENT: dysuria, hematuria Musculoskeletal: ABSENT: joint swelling Integumentary: ABSENT: rash, wounds Neurological: ABSENT: abnormal gait, abnormal speech, confusion, dizziness, focal weakness, syncope Psychiatric: ABSENT: anxiety, depression, homidical ideation, suicidal ideation Endocrine: ABSENT: cold intolerance, heat intolerance, menstrual abnormalities, polydipsia, polyuria Hematologic/Lymphatic: ABSENT: easy bleeding, easy bruising, lymphadenopathy Physical Exam Vital Signs: Temp Pulse Resp BP Pulse Ox 98.8 F 66 16 158/63 H 96 09/15/20 18:30 09/15/20 18:30 09/15/20 18:30 09/15/20 18:30 09/15/20 18:30 Intake & Output 09/14/20 09/15/20 09/16/20 06:59 06:59 06:59 Intake Total 100 185 Balance 100 185 Weight 81.9 kg General appearance: PRESENT: obese - Patient is somnolent but arousable Head exam: PRESENT: atraumatic, normocephalic Eye exam: PRESENT: PERRLA. ABSENT: scleral icterus Ear exam: PRESENT: normal external ear exam Respiratory exam: PRESENT: clear to auscultation jeanette Cardiovascular exam: PRESENT: RRR, +S1, +S2 Pulses: PRESENT: normal dorsalis pedis pul, +2 pedal pulses bilateral Vascular exam: PRESENT: normal capillary refill GI/Abdominal exam: PRESENT: normal bowel sounds, soft Rectal exam: PRESENT: deferred Neurological exam: PRESENT: altered. ABSENT: motor sensory deficit Psychiatric exam: PRESENT: appropriate affect, normal mood Skin exam: PRESENT: dry, intact, warm Results Laboratory Results: 09/15/20 00:38 09/15/20 00:38 09/15/20 09/15/20 09/15/20 00:26 00:38 00:38 WBC 3.9 L RBC 2.67 L Hgb 7.3 L Hct 22.2 L MCV 83 MCH 27.4 MCHC 32.9 RDW 15.4 H Plt Count 195 Seg Neutrophils % 78.8 H Carbonic Acid HCO3/H2CO3 Ratio ABG pH ABG pCO2 ABG pO2 ABG HCO3 ABG O2 Saturation ABG Base Excess VBG pH VBG pCO2 VBG HCO3 VBG Base Excess FiO2 Sodium Potassium Chloride Carbon Dioxide Anion Gap BUN Creatinine Est GFR ( Amer) Glucose Lactic Acid 0.7 Calcium Ferritin Total Bilirubin AST Alkaline Phosphatase C-Reactive Protein Total Protein Albumin Urine Color HERNANDEZ Urine Appearance CLOUDY Urine pH 6.0 Ur Specific [place] 1.016 Urine Protein >=500 H Urine Glucose (UA) NEGATIVE Urine Ketones TRACE H Urine Blood NEGATIVE Urine RBC (Auto) 1 Blood Type 09/15/20 09/15/20 09/15/20 00:38 00:38 03:13 WBC RBC Hgb Hct MCV MCH MCHC RDW Plt Count Seg Neutrophils % Carbonic Acid HCO3/H2CO3 Ratio ABG pH ABG pCO2 ABG pO2 ABG HCO3 ABG O2 Saturation ABG Base Excess VBG pH 7.41 VBG pCO2 41.4 VBG HCO3 25.6 VBG Base Excess 0.8 FiO2 Sodium 135.4 L Potassium 3.5 L Chloride 98 Carbon Dioxide 27 Anion Gap 10 BUN 31 H Creatinine 4.70 H Est GFR ( Amer) 11 L Glucose 121 H Lactic Acid 0.7 Calcium 7.4 L Ferritin Total Bilirubin 0.6 AST 38 H Alkaline Phosphatase 53 C-Reactive Protein Total Protein 6.4 Albumin 3.2 L Urine Color Urine Appearance Urine pH Ur Specific [place] Urine Protein Urine Glucose (UA) Urine Ketones Urine Blood Urine RBC (Auto) Blood Type 09/15/20 09/15/20 09/15/20 08:50 08:50 08:50 WBC RBC Hgb Hct MCV MCH MCHC RDW Plt Count Seg Neutrophils % Carbonic Acid 1.20 HCO3/H2CO3 Ratio 21:1 ABG pH 7.43 ABG pCO2 39.9 ABG pO2 47.8 L ABG HCO3 25.7 H ABG O2 Saturation 84.7 L ABG Base Excess 1.3 VBG pH VBG pCO2 VBG HCO3 VBG Base Excess FiO2 2L Sodium Potassium Chloride Carbon Dioxide Anion Gap BUN Creatinine Est GFR ( Amer) Glucose Lactic Acid Calcium Ferritin 1420.00 H Total Bilirubin AST Alkaline Phosphatase C-Reactive Protein 52.4 H Total Protein Albumin Urine Color Urine Appearance Urine pH Ur Specific [place] Urine Protein Urine Glucose (UA) Urine Ketones Urine Blood Urine RBC (Auto) Blood Type B POSITIVE 1209/15/20 09/15/20 00:38 00:38 08:50 Creatine Kinase 127 110 Troponin I 0.678 09/15/20 08:50 Creatine Kinase Troponin I 0.617 Impressions: Abdomen/Pelvis CT 09/15/20 03:22 IMPRESSION: Small pleural effusions. No definite acute inflammatory process otherwise. Chest X-Ray 09/15/20 04:15 IMPRESSION: 1. Mild vascular congestion. 2. Stable prominence of the cardiac silhouette. 3. Right IJ central venous dialysis catheter tip terminates in the region of the cavoatrial junction. Assessment & Plan - Diagnosis (1) Acute hypoxemic respiratory failure Is this a current diagnosis for this admission?: Yes Plan: Continue supplemental oxygen with nasal cannula (2) Pneumonia due to COVID-19 virus Is this a current diagnosis for this admission?: Yes Plan: She has COVID-19 positive test (U07.1, COVID-19) with Acute Pneumonia (J12.89, Other viral pneumonia)(If respiratory failure or sepsis present, add as separate assessment)Start IV dexamethasone, remdesivir (3) ESRD (end stage renal disease) Is this a current diagnosis for this admission?: Yes Plan: Patient on hemodialysis consult nephrology (4) Type 2 diabetes mellitus with diabetic chronic kidney disease Qualifiers: Diabetes mellitus long-term insulin use: with long-term use Chronic kidney disease stage: on chronic dialysis Qualified Code(s): E11.22 - Type 2 diabetes mellitus with diabetic chronic kidney disease; N18.6 - End stage renal disease; Z79.4 - FPC (current) use of insulin; Z99.2 - Dependence on renal dialysis Is this a current diagnosis for this admission?: Yes - Time Time Spent: Greater than 70 Minutes Smoking Cessation Education: 3 to 10 minutes Medications reviewed and adjusted accordingly: Yes Anticipated Discharge Disposition: Home, Self Care Anticipated Discharge Timeframe: 10 days
--- NOTE | 2020-09-15 23:31 | PDOC CONSULTATION ---
Consultation Consult Date: 09/15/20 Provider Consulted: RUY GARCIA Consult reason:: ESRD History of Present Illness Admission Date/PCP: 09/15/20 04:35 QUINCY ALEJO MD History of Present Illness: YG METZ is a 74 year old lady known to me with history of ESRD on maintenance hemodialysis, hypertension, diabetes mellitus type 2, and noncompliance who presented in the emergency room with generalized weakness. reported loose stools described as nonbloody which she has in termittently chronically. There was report of fever. He tested positive for SARS-CoV-2 RT-PCR test. She was also noted to be hypoxic on ABG. Her last dialysis was yesterday but she did not complete her dialysis treatment which she usually does anyways. She only did about 2 hours of dialysis treatment yesterday. When I saw the patient in her room today she appears to have very low energy. She admits that she just feels very weak. She denies any chest pains, shortness of breath, nausea nor vomiting. She does seem comfortable lying down in bed. She offers no other complaints. Past Medical History Cardiac Medical History: Reports: Coronary Artery Disease, Hyperlipidemia, Hypertension-primary - Diagnosis at least about 28 years ago. Pulmonary Medical History: Reports: Chronic Obstructive Pulmonary Disease (COPD) - cpap Endocrine Medical History: Reports: Diabetes Mellitus Type 2 Complications of Diabetes: Reports: Autonomic Neuropathy, Nephropathy, Retinopathy Renal/ Medical History: Reports: End Stage Renal Disease Malignancy Medical History: Reports: Colorectal Cancer - Status post colon resection. Hematology Medical History: Reports Anemia of Chronic Kidney Disease Past Surgical History Past Surgical History: Reports: Cardiac Catheterization - stents x 2, Tubal Ligation, Other - Colon resection Social History Information Source: [facility] Records Smoking Status: Never Smoker Frequency of Alcohol Use: None Hx Recreational Drug Use: No Drugs: None Hx Prescription Drug Abuse: No Family History Family History: Reviewed & Not Pertinent Parental Family History Reviewed: Yes Children Family History Reviewed: Yes Sibling(s) Family History Reviewed.: Yes Medication/Allergy Home Medications: Aspirin [Ecotrin 81 mg EC Tablet] 81 mg PO DAILY 04/08/19 Atorvastatin Calcium [Lipitor 80 mg Tablet] 80 mg PO QHS 04/08/19 Metoprolol Tartrate [Lopressor 100 mg Tablet] 100 mg PO BID 04/08/19 Furosemide [Lasix 40 mg Tablet] 40 mg PO BID #180 tablet 04/10/19 Hydralazine HCl [Apresoline 50 mg Tablet] 100 mg PO Q8 #90 tablet 04/10/19 Valsartan [Diovan 160 mg Tablet] 320 mg PO DAILY #90 tablet 04/10/19 Isosorbide Mononitrate [Imdur 30 mg Tablet.er] 30 mg PO DAILY tab.er.24h 07/28/19 Amlodipine Besylate [Norvasc 10 mg Tablet] 10 mg PO DAILY 09/20/19 Cetirizine HCl [Zyrtec 10 mg Tablet] 10 mg PO DAILY 09/20/19 Doxazosin Mesylate [Cardura 4 mg Tablet] 4 mg PO BID 09/20/19 Meclizine HCl [Antivert 25 mg Tablet] 25 mg PO TIDP PRN 09/20/19 Montelukast Sodium [Singulair 10 mg Tablet] 10 mg PO DAILY 09/20/19 Ondansetron HCl [Zofran 4 mg Tablet] 4 mg PO DAILYP PRN 09/20/19 Acyclovir [Zovirax 800 mg Tablet] 800 mg PO 5XD 09/15/20 Buspirone HCl 15 mg PO BID 09/15/20 Clonidine HCl [Catapres 0.2 mg Tablet] 0.2 mg PO TID 09/15/20 Donepezil HCl [Aricept] 5 mg PO QHS 09/15/20 Doxepin HCl [Silenor] 6 mg PO QHS 09/15/20 Insulin Glargine,Hum.rec.anlog [Lantus Insulin 100 Unit/1 ml 10 ml] 10 units SQ DAILY 09/15/20 Insulin Lispro [Humalog Kwikpen U-100] 16 unit SQ TID 09/15/20 Lactulose 10 gm PO DAILY 09/15/20 Nifedipine [Nifedipine ER] 90 mg PO DAILY 09/15/20 Allergies/Adverse Reactions: codeine [Codeine] Allergy (Mild, Verified 09/15/20 11:09) meperidine HCl [From Demerol] Allergy (Mild, Verified 09/15/20 11:09) morphine Allergy (Verified 09/15/20 11:09) pregabalin [From Lyrica] Allergy (Verified 09/15/20 11:09) Review of Systems All systems: reviewed and no additional remarkable complaints except as stated Review of Systems: Constitutional: ABSENT: chills, fever(s), headache(s), weight gain, weight loss; generalized weakness and fatigue Eyes: ABSENT: visual disturbances Ears: ABSENT: hearing changes Cardiovascular: ABSENT: chest pain, dyspnea on exertion, edema, orthropnea, palpitations Respiratory: ABSENT: cough, dyspnea, hemoptysis Gastrointestinal: ABSENT: abdominal pain, constipation, hematemesis, hematochezia, nausea, vomiting; positive intermittent diarrhea Genitourinary: ABSENT: dysuria, hematuria Musculoskeletal: ABSENT: joint swelling Integumentary: ABSENT: rash, wounds Neurological: ABSENT: abnormal gait, abnormal speech, confusion, dizziness, focal weakness, numbness, syncope Psychiatric: ABSENT: anxiety, depression Endocrine: ABSENT: cold intolerance, heat intolerance, polydipsia, polyuria Hematologic/Lymphatic: ABSENT: easy bleeding, easy bruising, lymphadenopathy Physical Exam Vital Signs: Temp Pulse Resp BP Pulse Ox 99.9 F 69 16 155/56 H 93 09/15/20 12:02 09/15/20 12:02 09/15/20 12:02 09/15/20 12:02 09/15/20 12:02 Intake & Output 09/14/20 09/15/20 09/16/20 06:59 06:59 06:59 Intake Total 100 185 Balance 100 185 Weight 81.9 kg Exam: General appearance: No acute distress, cooperative, well-developed, well- nourished Head exam: PRESENT: atraumatic, normocephalic Eye exam: PRESENT: Conjunctiva pale, EOMI, PERRLA. ABSENT: conjunctival injection, scleral icterus Mouth exam: PRESENT: moist, neck supple, tongue midline Neck exam: PRESENT: full ROM. ABSENT: carotid bruit, JVD, lymphadenopathy, thyromegaly Respiratory exam: PRESENT: Managed to auscultation bilaterally. ABSENT: rales, rhonchi, stridor, wheezes Cardiovascular exam: PRESENT: RRR, +S1, +S2. ABSENT: systolic murmur Pulses: PRESENT: normal radial pulses, normal dorsalis pedis pulses GI/Abdominal exam: PRESENT: normal bowel sounds, soft. ABSENT: guarding, mass, tenderness Rectal exam: Deferred Extremities exam: PRESENT: full ROM. ABSENT: calf tenderness, pedal edema Musculoskeletal: PRESENT: full ROM. ABSENT: deformity Neurological exam: PRESENT: alert, Awake, Oriented to person, Oriented to place, Oriented to time, reflexes normal, CN II-XII grossly intact. ABSENT: motor sensory deficit Psychiatric exam: PRESENT: appropriate affect, normal mood. ABSENT: homicidal ideation, suicidal ideation Skin exam: PRESENT: intact, dry, warm. ABSENT: rash Results Laboratory Results: 09/15/20 00:38 09/15/20 00:38 09/15/20 09/15/20 09/15/20 00:26 00:38 00:38 WBC 3.9 L RBC 2.67 L Hgb 7.3 L Hct 22.2 L MCV 83 MCH 27.4 MCHC 32.9 RDW 15.4 H Plt Count 195 Seg Neutrophils % 78.8 H Carbonic Acid HCO3/H2CO3 Ratio ABG pH ABG pCO2 ABG pO2 ABG HCO3 ABG O2 Saturation ABG Base Excess VBG pH VBG pCO2 VBG HCO3 VBG Base Excess FiO2 Sodium Potassium Chloride Carbon Dioxide Anion Gap BUN Creatinine Est GFR ( Amer) Glucose Lactic Acid 0.7 Calcium Ferritin Total Bilirubin AST Alkaline Phosphatase C-Reactive Protein Total Protein Albumin Urine Color HERNANDEZ Urine Appearance CLOUDY Urine pH 6.0 Ur Specific [place] 1.016 Urine Protein >=500 H Urine Glucose (UA) NEGATIVE Urine Ketones TRACE H Urine Blood NEGATIVE Urine RBC (Auto) 1 Blood Type 09/15/20 09/15/20 09/15/20 00:38 00:38 03:13 WBC RBC Hgb Hct MCV MCH MCHC RDW Plt Count Seg Neutrophils % Carbonic Acid HCO3/H2CO3 Ratio ABG pH ABG pCO2 ABG pO2 ABG HCO3 ABG O2 Saturation ABG Base Excess VBG pH 7.41 VBG pCO2 41.4 VBG HCO3 25.6 VBG Base Excess 0.8 FiO2 Sodium 135.4 L Potassium 3.5 L Chloride 98 Carbon Dioxide 27 Anion Gap 10 BUN 31 H Creatinine 4.70 H Est GFR ( Amer) 11 L Glucose 121 H Lactic Acid 0.7 Calcium 7.4 L Ferritin Total Bilirubin 0.6 AST 38 H Alkaline Phosphatase 53 C-Reactive Protein Total Protein 6.4 Albumin 3.2 L Urine Color Urine Appearance Urine pH Ur Specific [place] Urine Protein Urine Glucose (UA) Urine Ketones Urine Blood Urine RBC (Auto) Blood Type 09/15/20 09/15/20 09/15/20 08:50 08:50 08:50 WBC RBC Hgb Hct MCV MCH MCHC RDW Plt Count Seg Neutrophils % Carbonic Acid 1.20 HCO3/H2CO3 Ratio 21:1 ABG pH 7.43 ABG pCO2 39.9 ABG pO2 47.8 L ABG HCO3 25.7 H ABG O2 Saturation 84.7 L ABG Base Excess 1.3 VBG pH VBG pCO2 VBG HCO3 VBG Base Excess FiO2 2L Sodium Potassium Chloride Carbon Dioxide Anion Gap BUN Creatinine Est GFR ( Amer) Glucose Lactic Acid Calcium Ferritin 1420.00 H Total Bilirubin AST Alkaline Phosphatase C-Reactive Protein 52.4 H Total Protein Albumin Urine Color Urine Appearance Urine pH Ur Specific [place] Urine Protein Urine Glucose (UA) Urine Ketones Urine Blood Urine RBC (Auto) Blood Type B POSITIVE 09/15/20 09/15/20 09/15/20 00:38 00:38 08:50 Creatine Kinase 127 110 Troponin I 0.678 09/15/20 08:50 Creatine Kinase Troponin I 0.617 Impressions: Abdomen/Pelvis CT 09/15/20 03:22 IMPRESSION: Small pleural effusions. No definite acute inflammatory process otherwise. Chest X-Ray 09/15/20 04:15 IMPRESSION: 1. Mild vascular congestion. 2. Stable prominence of the cardiac silhouette. 3. Right IJ central venous dialysis catheter tip terminates in the region of the cavoatrial junction. Assessment & Plan - Diagnosis (1) Pneumonia due to COVID-19 virus Is this a current diagnosis for this admission?: Yes Plan: Management per Dr. Alejo. Patient will be started on convalescent plasma, IV remdesivir, IV Decadron, azithromycin, vitamin C, vitamin D and zinc. (2) Generalized weakness Is this a current diagnosis for this admission?: Yes (3) ESRD (end stage renal disease) Is this a current diagnosis for this admission?: Yes Plan: No indication for any urgent hemodialysis today. Plan to do dialysis on Sunday. (4) Anemia in chronic kidney disease (CKD) Qualifiers: Chronic kidney disease stage: stage 4 (severe) Qualified Code(s): N18.4 - Chronic kidney disease, stage 4 (severe); D63.1 - Anemia in chronic kidney disease Is this a current diagnosis for this admission?: Yes Plan: We will give Retacrit during dialysis treatment. She most likely received her Retacrit yesterday with dialysis. (5) Hypertension Qualifiers: Hypertension type: unspecified Qualified Code(s): I10 - Essential (primary) hypertension Is this a current diagnosis for this admission?: Yes Plan: Resume home blood pressure medications. 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
--- NOTE | 2020-09-16 00:22 | RADIOLOGY REPORT (SQ) ---
EXAM DESCRIPTION: NM LUNG PERFUSION SCAN CLINICAL HISTORY: 74 years Female hypoxemia r/o pe TECHNIQUE: Nuclear medicine perfusion scan performed 5.47 mCi intravenous technetium 99m MAA. Eight views of the lungs were obtained. COMPARISON: Single view the chest obtained earlier in the day at 5:11 AM FINDINGS: Perfusion:There is homogeneous symmetric perfusion seen throughout the lung parenchyma. No moderate or large defects. IMPRESSION: Low probability for pulmonary embolism.
[2020-09-16] MEDS: HEPARIN SOD (PORCINE) 5,000 UNIT/ML 1 ML VIAL SUBCUT SCH ×4 (00:33→22:44)
[2020-09-16] MEDS: INSULIN LISPRO 100 UNIT/ML 3 ML VIAL SUBCUT SCH ×5 (00:33→22:37)
--- NOTE | 2020-09-16 00:52 | RADIOLOGY REPORT (SQ) ---
EXAM DESCRIPTION: CT HEAD WITHOUT IV CONTRAST COMPLETED DATE/TME: 09/16/2020 00:23 CLINICAL HISTORY: 74 years, Female, excessive somnolence COMPARISON: 07/18/2019 CT TECHNIQUE: 194 Images stored on PACS. All CT scanners at this facility use dose modulation, iterative reconstruction, and/or weight based dosing when appropriate to reduce radiation dose to as low as reasonably achievable (ALARA). [facility]: Dose Right [facility]: CareDose [facility]: Dose Right [facility]: Teradose 4D [facility]: [facility] LIMITATIONS: None. FINDINGS: The globes are intact. Mucosal thickening and polyps of the maxillary sinuses bilaterally. No displaced or depressed skull fracture. No acute intracranial hemorrhage. Extensive dural based calcifications. CT is limited for evaluation of acute infarct. No CT evidence for large or territorial acute infarct. No mass or midline shift. Mild diffuse atrophy IMPRESSION: No acute intracranial abnormality TECHNICAL DOCUMENTATION: Quality ID # 436: Final reports with documentation of one or more dose reduction techniques (e.g., Automated exposure control, adjustment of the mA and/or kV according to patient size, use of iterative reconstruction technique) copyright 2011 [employer]- All Rights Reserved
--- NOTE | 2020-09-16 01:05 | RADIOLOGY REPORT (SQ) ---
EXAM: CT chest without IV contrast CLINICAL DATA: 74 years Female covid pneumonia , fever TECHNICAL DATA: Axial CT imaging of the chest was performed without intravenous contrast. Sagittal and coronal reconstructed images were then performed. The CT study is performed according to ALARA (as low as reasonably achievable) or ALARA/IMAGE GENTLY, with automatic adjustment of mA and/or kV according to patient size. Performed on: 09/16/2020 at 12:07 AM Comparison: CT chest performed on 11/01/2015 and lung perfusion scan performed on 09/15/2020. FINDINGS: CT CHEST: Lungs: The lungs are well-expanded. There is mild bibasilar fibrosis and/or atelectasis. There are occasional scattered peripheral areas of parenchymal opacification which may be due to atelectasis or inflammatory change. There are no pleural effusions. There is no evidence of a pneumothorax. Heart: The heart is enlarged. There are moderate coronary artery calcifications. A right IJ central venous catheter is present which terminates in the region of the cavoatrial junction. There is no pericardial effusion. Mediastinum:The mediastinum is unremarkable. There are atherosclerotic calcifications along the thoracic aorta. The mediastinal vessels are grossly normal in caliber and contour. Bones:No acute osseous abnormalities are identified. Soft tissues:No focal soft tissue abnormalities are identified. Lymphadenopathy: No pathologic hilar, mediastinal or axillary lymphadenopathy is identified. Upper abdomen: No acute abnormalities are identified. There are atherosclerotic calcifications involving the abdominal aorta and major branch vessels. IMPRESSION: 1. There are occasional scattered peripheral areas of parenchymal opacification which may be due to atelectasis or inflammatory change. There is also mild bibasilar fibrosis and/or atelectasis. 2. Cardiomegaly. 3. Moderate coronary artery calcifications.
[2020-09-16] MEDS: FUROSEMIDE 40 MG TABLET PO SCH ×2 (05:39→18:27)
[2020-09-16] MEDS: BUSPIRONE HCL 10 MG TABLET PO SCH ×2 (05:39→18:26)
[2020-09-16] MEDS: ISOSORBIDE MONONITRATE 30 MG TAB.ER.24H PO SCH (05:39)
[2020-09-16] MEDS: DOXAZOSIN MESYLATE 4 MG TABLET PO SCH ×2 (05:39→18:28)
[2020-09-16] MEDS: LACTULOSE SYRUP 20 GM/30 ML UDCUP PO SCH (05:39)
[2020-09-16] MEDS: VALSARTAN 160 MG TABLET PO SCH (05:40)
[2020-09-16] MEDS: HYDRALAZINE HCL 50 MG TABLET PO SCH ×3 (05:40→22:45)
[2020-09-16] MEDS: METOPROLOL TARTRATE 100 MG TABLET PO SCH ×2 (05:40→18:29)
[2020-09-16] MEDS: NIFEDIPINE 30 MG TAB.ER.24 PO SCH (05:42)
[2020-09-16] MEDS: AMLODIPINE BESYLATE 10 MG TABLET PO SCH (05:42)
[2020-09-16] MEDS ORDERED: ASPIRIN 81 MG TABLET, ENT COATED PO SCH (06:00)
[2020-09-16 06:16] LABS: ABSOLUTE LYMPHOCYTES (AUTO) 0.5 10^3/uL (0.5-4.7); ABSOLUTE MONOCYTES (AUTO) 0.6 10^3/uL (0.1-1.4); ABSOLUTE NEUT (AUTO) 3.1 10^3/uL (1.7-8.2); BASOPHILS % (AUTO) 0.6 % (0-2); EOSINOPHILS % (AUTO) 0.1 % (0-6); HEMATOCRIT 24.3 % (36.0-47.0); HEMOGLOBIN 8.3 g/dL (12.0-15.5); LYMPHOCYTES % (AUTO) 12.4 % (13-45); MEAN CORPUSCULAR HEMOGLOBIN 27.5 pg (27.0-33.4); MEAN CORPUSCULAR HGB CONC 34.1 g/dL (32.0-36.0); MEAN CORPUSCULAR VOLUME 81 fl (80-97); MONOCYTES % (AUTO) 13.5 % (3-13); PLATELET COUNT 237 10^3/uL (150-450); RED BLOOD COUNT 3.02 10^6/uL (3.72-5.28); SEGMENTED NEUTROPHILS % (AUTO) 73.4 % (42-78); TOTAL CELLS COUNTED % (AUTO) 100 %; WHITE BLOOD COUNT 4.2 10^3/uL (4.0-10.5)
[2020-09-16 06:37] LABS: ALBUMIN 3.3 g/dL (3.5-5.0); ALKALINE PHOSPHATASE 71 U/L (38-126); ANION GAP 15 (5-19); ASPARTATE AMINO TRANSFERASE 37 U/L (14-36); BILIRUBIN,DIRECT 0.5 mg/dL (0.0-0.4); BILIRUBIN,TOTAL 0.6 mg/dL (0.2-1.3); BLOOD UREA NITROGEN 45 mg/dL (7-20); CALCIUM 7.8 mg/dL (8.4-10.2); CARBON DIOXIDE 22 mmol/L (22-30); CHLORIDE 99 mmol/L (98-107); GLUCOSE 99 mg/dL (75-110); POTASSIUM 3.7 mmol/L (3.6-5.0); TOTAL PROTEIN 6.4 g/dL (6.3-8.2)
[2020-09-16] MEDS: ACYCLOVIR 800 MG TABLET PO SCH ×5 (08:54→18:27)
[2020-09-16] MEDS: ZINC SULFATE 220 MG CAPSULE PO SCH (10:27)
[2020-09-16] MEDS: ASPIRIN 81 MG TABLET, ENT COATED PO SCH (10:27)
[2020-09-16] MEDS: AZITHROMYCIN 250 MG TABLET PO SCH (10:27)
[2020-09-16] MEDS: ASCORBIC ACID 500 MG TABLET PO SCH ×2 (10:27→18:28)
[2020-09-16] MEDS: CETIRIZINE 10 MG TABLET PO SCH (10:27)
[2020-09-16] MEDS: CLONIDINE HCL 0.2 MG TABLET PO SCH ×3 (10:27→18:28)
[2020-09-16] MEDS: CHOLECALCIFEROL (D3) 1,000 UNIT (25 MCG) TABLET PO SCH (10:27)
[2020-09-16] MEDS: REMDESIVIR 100 MG in NORMAL SALINE 250 ML IV SCH (10:28)
[2020-09-16] MEDS: INSULIN GLARGINE,HUM.REC.ANLOG 1,000 UNIT/10 ML VIAL SUBCUT SCH (10:28)
[2020-09-16] MEDS: DEXAMETHASONE SOD PHOS INJ 10 MG/1 ML VIAL IV SCH (10:29)
--- NOTE | 2020-09-16 15:25 | PDOC PROGRESS REPORT ---
Subjective Date:: 09/16/20 Subjective:: Patient complaining of fatigue, she is alert Reason For Visit: COVID PNEUMONIA ESRD ON DIALYSIS Physical Exam Vital Signs: Temp Pulse Resp BP Pulse Ox 99.0 F 69 20 148/57 H 92 09/16/20 11:15 09/16/20 11:15 09/16/20 11:15 09/16/20 11:15 09/16/20 11:15 Intake & Output 09/15/20 09/16/20 09/17/20 06:59 06:59 06:59 Intake Total 100 885 Output Total 0 Balance 100 885 Weight 81.9 kg 83.7 kg 83.7 kg General appearance: PRESENT: no acute distress Eye exam: PRESENT: PERRLA Respiratory exam: PRESENT: clear to auscultation jeanette Cardiovascular exam: PRESENT: +S1, +S2 GI/Abdominal exam: PRESENT: soft Neurological exam: PRESENT: alert, CN II-XII grossly intact Results Laboratory Results: 09/16/20 05:34 09/16/20 05:34 09/15/20 09/16/20 09/16/20 08:50 05:34 05:34 WBC 4.2 RBC 3.02 L Hgb 8.3 L Hct 24.3 L MCV 81 MCH 27.5 MCHC 34.1 RDW 15.0 H Plt Count 237 Seg Neutrophils % 73.4 Sodium 136.1 L Potassium 3.7 Chloride 99 Carbon Dioxide 22 Anion Gap 15 BUN 45 H Creatinine 6.27 H Est GFR ( Amer) 8 L Glucose 99 Calcium 7.8 L Total Bilirubin 0.6 AST 37 H Alkaline Phosphatase 71 Total Protein 6.4 Albumin 3.3 L Blood Type B POSITIVE 09/15/20 00:38 Blood Blood Culture (PCR) - Final Staphylococcus Species 09/15/20 09/15/20 09/15/20 00:38 00:38 08:50 Creatine Kinase 127 110 Troponin I 0.678 09/15/20 08:50 Creatine Kinase Troponin I 0.617 Impressions: Lung Scan-VQ NM 09/15/20 00:00 IMPRESSION: Low probability for pulmonary embolism. Abdomen/Pelvis CT 09/15/20 03:22 IMPRESSION: Small pleural effusions. No definite acute inflammatory process otherwise. Chest X-Ray 09/15/20 04:15 IMPRESSION: 1. Mild vascular congestion. 2. Stable prominence of the cardiac silhouette. 3. Right IJ central venous dialysis catheter tip terminates in the region of the cavoatrial junction. Chest CT 09/16/20 00:00 IMPRESSION: 1. There are occasional scattered peripheral areas of parenchymal opacification which may be due to atelectasis or inflammatory change. There is also mild bibasilar fibrosis and/or atelectasis. 2. Cardiomegaly. 3. Moderate coronary artery calcifications. Head CT 09/16/20 00:00 IMPRESSION: No acute intracranial abnormality TECHNICAL DOCUMENTATION: Quality ID # 436: Final reports with documentation of one or more dose reduction techniques (e.g., Automated exposure control, adjustment of the mA and/or kV according to patient size, use of iterative reconstruction technique) copyright 2011 [employer]- All Rights Reserved Assessment & Plan - Diagnosis (1) Acute hypoxemic respiratory failure Is this a current diagnosis for this admission?: Yes Plan: Continue oxygen supplementation with nasal cannula (2) Pneumonia due to COVID-19 virus Is this a current diagnosis for this admission?: Yes Plan: Continue IV remdesivir for 5 days, dexamethasone for 10 days (3) ESRD (end stage renal disease) Is this a current diagnosis for this admission?: Yes (4) Type 2 diabetes mellitus with diabetic chronic kidney disease Qualifiers: Diabetes mellitus residential insulin use: with residential use Chronic kidney disease stage: on chronic dialysis Qualified Code(s): E11.22 - Type 2 diabetes mellitus with diabetic chronic kidney disease; N18.6 - End stage renal disease; 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; Z99.2 - Dependence on renal dialysis Is this a current diagnosis for this admission?: Yes - Time Time Spent with patient: 25-34 minutes Level of Care: IMCU Medications reviewed and adjusted accordingly: Yes Anticipated discharge: Home Anticipated DC Timeframe: within 72 hours - Inpatient Certification Based on my medical assessment, after consideration of the patient's comorbidities, presenting symptoms, or acuity I expect that the services needed warrant INPATIENT care.: Yes I certify that my determination is in accordance with my understanding of Medicare's requirements for reasonable and necessary INPATIENT services [42 CFR 412.3e].: Yes
[2020-09-16] MEDS: MONTELUKAST SODIUM 10 MG TABLET PO SCH (18:29)
[2020-09-16] MEDS ORDERED: HYDRALAZINE HCL INJ/PF 20 MG/1 ML SDV IV ONE (20:30)
[2020-09-16] MEDS: ATORVASTATIN CALCIUM 80 MG TABLET PO SCH (22:45)
[2020-09-16] MEDS: DONEPEZIL HCL 5 MG TABLET PO SCH (22:45)
[2020-09-17] MEDS ORDERED: ONDANSETRON HCL INJ/PF 4 MG/2 ML SDV ONE (01:31)
[2020-09-17] MEDS ORDERED: ONDANSETRON HCL INJ/PF 4 MG/2 ML SDV IV ONE (01:45)
[2020-09-17] MEDS ORDERED: EPOETIN ALFA-EPBX 20,000 UNIT in SYRINGE, DISPOSABLE, 1 EACH IV PRN (05:00)
[2020-09-17] MEDS ORDERED: NORMAL SALINE 1000 ML 1,000 ML IV PRN (05:00)
[2020-09-17 05:46] LABS: ABSOLUTE LYMPHOCYTES (AUTO) 0.5 10^3/uL (0.5-4.7); ABSOLUTE MONOCYTES (AUTO) 0.6 10^3/uL (0.1-1.4); ABSOLUTE NEUT (AUTO) 2.7 10^3/uL (1.7-8.2); BASOPHILS % (AUTO) 0.4 % (0-2); HEMATOCRIT 25.2 % (36.0-47.0); HEMOGLOBIN 8.6 g/dL (12.0-15.5); LYMPHOCYTES % (AUTO) 12.1 % (13-45); MEAN CORPUSCULAR HEMOGLOBIN 27.6 pg (27.0-33.4); MEAN CORPUSCULAR HGB CONC 34.2 g/dL (32.0-36.0); MEAN CORPUSCULAR VOLUME 81 fl (80-97); MONOCYTES % (AUTO) 16.6 % (3-13); PLATELET COUNT 251 10^3/uL (150-450); RED BLOOD COUNT 3.12 10^6/uL (3.72-5.28); RED CELL DISTRIBUTION WIDTH 15.5 % (11.5-14.0); SEGMENTED NEUTROPHILS % (AUTO) 70.9 % (42-78); TOTAL CELLS COUNTED % (AUTO) 100 %; WHITE BLOOD COUNT 3.8 10^3/uL (4.0-10.5)
[2020-09-17] MEDS: HEPARIN SOD (PORCINE) 5,000 UNIT/ML 1 ML VIAL SUBCUT SCH ×3 (06:01→22:29)
[2020-09-17] MEDS: HYDRALAZINE HCL 50 MG TABLET PO SCH ×4 (06:01→22:38)
[2020-09-17 06:15] LABS: ALBUMIN 2.8 g/dL (3.5-5.0); ALKALINE PHOSPHATASE 59 U/L (38-126); ANION GAP 12 (5-19); ASPARTATE AMINO TRANSFERASE 35 U/L (14-36); BILIRUBIN,DIRECT 0.5 mg/dL (0.0-0.4); BILIRUBIN,TOTAL 0.5 mg/dL (0.2-1.3); BLOOD UREA NITROGEN 60 mg/dL (7-20); CALCIUM 7.6 mg/dL (8.4-10.2); CARBON DIOXIDE 23 mmol/L (22-30); CHLORIDE 101 mmol/L (98-107); GLUCOSE 147 mg/dL (75-110); POTASSIUM 3.9 mmol/L (3.6-5.0); TOTAL PROTEIN 5.8 g/dL (6.3-8.2)
[2020-09-17] MEDS ORDERED: HEPARIN SOD (PORCINE) 1,000 UNIT/ML 10 ML VIAL IV PRN (09:21)
[2020-09-17] MEDS: NIFEDIPINE 30 MG TAB.ER.24 PO SCH ×2 (10:15→10:16)
[2020-09-17] MEDS: AZITHROMYCIN 250 MG TABLET PO SCH ×2 (10:15→10:16)
[2020-09-17] MEDS: DOXAZOSIN MESYLATE 4 MG TABLET PO SCH ×3 (10:15→18:00)
[2020-09-17] MEDS: FUROSEMIDE 40 MG TABLET PO SCH ×3 (10:15→18:01)
[2020-09-17] MEDS: ISOSORBIDE MONONITRATE 30 MG TAB.ER.24H PO SCH ×2 (10:15→10:16)
[2020-09-17] MEDS: ASCORBIC ACID 500 MG TABLET PO SCH ×3 (10:15→18:01)
[2020-09-17] MEDS: CETIRIZINE 10 MG TABLET PO SCH ×2 (10:15→10:17)
[2020-09-17] MEDS: ZINC SULFATE 220 MG CAPSULE PO SCH ×2 (10:15→10:18)
[2020-09-17] MEDS: METOPROLOL TARTRATE 100 MG TABLET PO SCH ×3 (10:15→18:01)
[2020-09-17] MEDS: BUSPIRONE HCL 10 MG TABLET PO SCH ×3 (10:15→18:00)
[2020-09-17] MEDS: AMLODIPINE BESYLATE 10 MG TABLET PO SCH ×2 (10:15→10:16)
[2020-09-17] MEDS: VALSARTAN 160 MG TABLET PO SCH ×2 (10:15→10:16)
[2020-09-17] MEDS: ACYCLOVIR 800 MG TABLET PO SCH ×4 (10:15→21:33)
[2020-09-17] MEDS: ASPIRIN 81 MG TABLET, ENT COATED PO SCH ×2 (10:15→10:16)
[2020-09-17] MEDS: CLONIDINE HCL 0.2 MG TABLET PO SCH ×4 (10:15→18:01)
[2020-09-17] MEDS: LACTULOSE SYRUP 20 GM/30 ML UDCUP PO SCH ×2 (10:15→10:20)
[2020-09-17] MEDS: CHOLECALCIFEROL (D3) 1,000 UNIT (25 MCG) TABLET PO SCH (10:17)
[2020-09-17] MEDS: INSULIN GLARGINE,HUM.REC.ANLOG 1,000 UNIT/10 ML VIAL SUBCUT SCH (10:20)
[2020-09-17] MEDS: INSULIN LISPRO 100 UNIT/ML 3 ML VIAL SUBCUT SCH ×4 (10:21→22:30)
--- NOTE | 2020-09-17 11:01 | PDOC PROGRESS REPORT ---
Subjective Date:: 09/17/20 Subjective:: I am seeing the patient during dialysis this morning. She seems to be comfortable with oxygen by nasal cannula at 2 L. She is still slow to response. Head CT was negative. She is tolerating dialysis without any much issues. Reason For Visit: COVID PNEUMONIA ESRD ON DIALYSIS Physical Exam Vital Signs: Temp Pulse Resp BP Pulse Ox 97.6 F 60 18 161/63 H 97 09/17/20 03:51 09/17/20 07:00 09/17/20 03:51 09/17/20 03:51 09/17/20 03:51 Intake & Output 09/16/20 09/17/20 09/18/20 06:59 06:59 06:59 Intake Total 885 610 Output Total 0 Balance 885 610 Weight 83.7 kg 84 kg Vitals during dialysis: Blood pressure 163/69, heart rate of 59, blood flow rate of 350 mL/min and dialysate flow rate of 800 mL/min. Exam: General appearance: PRESENT: no acute distress, cooperative, well-developed, well-nourished Head exam: PRESENT: atraumatic, normocephalic Eye exam: PRESENT: conjunctiva pale, PERRLA. ABSENT: scleral icterus Neck exam: ABSENT: JVD Respiratory exam: PRESENT: Diminished breath sounds. ABSENT: crackles, rales, rhonchi, unlabored, wheezes Cardiovascular exam: PRESENT: Regular rate rhythm -+S1, +S2. ABSENT: diastolic murmur, systolic murmur GI/Abdominal exam: PRESENT: normal bowel sounds, soft. ABSENT: guarding, mass, tenderness Extremities exam: Bilateral trace pitting edema Neurological exam: PRESENT: alert, awake, slow to response but appropriate. Skin exam: PRESENT: dry, warm, Results Laboratory Results: 09/17/20 04:26 09/17/20 04:26 09/17/20 09/17/20 04:26 04:26 WBC 3.8 L RBC 3.12 L Hgb 8.6 L Hct 25.2 L MCV 81 MCH 27.6 MCHC 34.2 RDW 15.5 H Plt Count 251 Seg Neutrophils % 70.9 Sodium 135.6 L Potassium 3.9 Chloride 101 Carbon Dioxide 23 Anion Gap 12 BUN 60 H Creatinine 6.79 H Est GFR ( Amer) 7 L Glucose 147 H Calcium 7.6 L Total Bilirubin 0.5 AST 35 Alkaline Phosphatase 59 Total Protein 5.8 L Albumin 2.8 L 09/15/20 00:38 Blood Blood Culture (PCR) - Final Staphylococcus Species 09/15/20 09/15/20 09/15/20 00:38 00:38 08:50 Creatine Kinase 127 110 Troponin I 0.678 09/15/20 08:50 Creatine Kinase Troponin I 0.617 Impressions: Lung Scan-VQ NM 09/15/20 00:00 IMPRESSION: Low probability for pulmonary embolism. Abdomen/Pelvis CT 09/15/20 03:22 IMPRESSION: Small pleural effusions. No definite acute inflammatory process otherwise. Chest X-Ray 09/15/20 04:15 IMPRESSION: 1. Mild vascular congestion. 2. Stable prominence of the cardiac silhouette. 3. Right IJ central venous dialysis catheter tip terminates in the region of the cavoatrial junction. Chest CT 09/16/20 00:00 IMPRESSION: 1. There are occasional scattered peripheral areas of parenchymal opacification which may be due to atelectasis or inflammatory change. There is also mild bibasilar fibrosis and/or atelectasis. 2. Cardiomegaly. 3. Moderate coronary artery calcifications. Head CT 09/16/20 00:00 IMPRESSION: No acute intracranial abnormality TECHNICAL DOCUMENTATION: Quality ID # 436: Final reports with documentation of one or more dose reduction techniques (e.g., Automated exposure control, adjustment of the mA and/or kV according to patient size, use of iterative reconstruction technique) copyright 2011 [employer]- All Rights Reserved Assessment & Plan - Diagnosis (1) ESRD (end stage renal disease) Is this a current diagnosis for this admission?: Yes Plan: We will do dialysis today for 3 hours, using the patient's PermCath, with 3 potassium bath, blood flow rate of 350 mL per minute, dialysate flow rate of 800 mL per minute, ultrafiltration 2 L as tolerated, no heparin and Procrit with 20,000 units during dialysis intravenously. Patient is being monitored closely during dialysis treatment. (2) Pneumonia due to COVID-19 virus Is this a current diagnosis for this admission?: Yes Plan: Management per Dr. Hatch. Patient was given convalescent plasma, and currently being treated with IV remdesivir, IV Decadron, azithromycin, vitamin C, vitamin D and zinc. (3) Generalized weakness Is this a current diagnosis for this admission?: Yes (4) Anemia in chronic kidney disease (CKD) Qualifiers: Chronic kidney disease stage: stage 4 (severe) Qualified Code(s): N18.4 - C hronic kidney disease, stage 4 (severe); D63.1 - Anemia in chronic kidney disease Is this a current diagnosis for this admission?: Yes Plan: We will give Retacrit during dialysis treatment. (5) UTI (urinary tract infection) Qualifiers: Urinary tract infection type: site unspecified Hematuria presence: without hematuria Qualified Code(s): N39.0 - Urinary tract infection, site not specified Is this a current diagnosis for this admission?: Yes Plan: Due to gram-negative rods. Start ciprofloxacin 200 mg IV every 12 hours. She has 1 positive blood culture for staph but another blood culture which is negative. (6) Hypertension Qualifiers: Hypertension type: unspecified Qualified Code(s): I10 - Essential (primary) hypertension Is this a current diagnosis for this admission?: Yes Plan: Resume home blood pressure medications. (7) Type 2 diabetes mellitus Qualifiers: Diabetes mellitus nursing home insulin use: without nursing home use Diabetes mellitus complication status: with kidney complications Diabetes mellitus complication detail: with nephropathy Qualified Code(s): E11.21 - Type 2 diabetes mellitus with diabetic nephropathy Is this a current diagnosis for this admission?: Yes - Time Time with patient: 15-25 minutes
[2020-09-17] MEDS: REMDESIVIR 100 MG in NORMAL SALINE 250 ML IV SCH (11:16)
[2020-09-17] MEDS: DEXAMETHASONE SOD PHOS INJ 10 MG/1 ML VIAL IV SCH (11:16)
[2020-09-17] MEDS ORDERED: ONDANSETRON 4 MG TAB.RAPDIS ONE (11:18)
[2020-09-17] MEDS ORDERED: ONDANSETRON 4 MG TAB.RAPDIS SL ONE (11:30)
[2020-09-17] MEDS: CIPROFLOXACIN 200 MG/D5W RTU 200 MG/100 ML RTUPB IV SCH ×2 (12:44→22:28)
[2020-09-17] MEDS ORDERED: ONDANSETRON 4 MG TAB.RAPDIS SL PRN (16:29)
--- NOTE | 2020-09-17 16:38 | PDOC PROGRESS REPORT ---
Subjective Date:: 09/17/20 Subjective:: Patient continue to have nausea and vomiting with inability to talk her medicati on orally. S/L Zofran last for tasha limited time. She had HD session with about 2L of fluid extraction. B;lood pressure remain severely elevated. No reported chest pain or difficulty with breathing. Reason For Visit: COVID PNEUMONIA ESRD ON DIALYSIS Physical Exam Vital Signs: Temp Pulse Resp BP Pulse Ox 98.8 F 69 20 206/55 H 100 09/17/20 15:33 09/17/20 15:33 09/17/20 15:33 09/17/20 15:33 09/17/20 15:33 Intake & Output 09/16/20 09/17/20 09/18/20 06:59 06:59 06:59 Intake Total 892 610 2350 Output Total 0 3000 Balance 885 610 -2000 Weight 83.7 kg 84 kg General appearance: PRESENT: no acute distress, obese Head exam: PRESENT: atraumatic, normocephalic Eye exam: PRESENT: conjunctiva pink. ABSENT: scleral icterus Mouth exam: PRESENT: moist Respiratory exam: PRESENT: clear to auscultation jeanette Cardiovascular exam: PRESENT: RRR, +S1, +S2 Vascular exam: ABSENT: pallor GI/Abdominal exam: PRESENT: normal bowel sounds, soft. ABSENT: tenderness Extremities exam: ABSENT: pedal edema Neurological exam: PRESENT: alert, awake, oriented to person, oriented to place, oriented to time, oriented to situation, CN II-XII grossly intact. ABSENT: motor sensory deficit Skin exam: PRESENT: dry, warm Results Laboratory Results: 09/17/20 04:26 09/17/20 04:26 09/17/20 09/17/20 04:26 04:26 WBC 3.8 L RBC 3.12 L Hgb 8.6 L Hct 25.2 L MCV 81 MCH 27.6 MCHC 34.2 RDW 15.5 H Plt Count 251 Seg Neutrophils % 70.9 Sodium 135.6 L Potassium 3.9 Chloride 101 Carbon Dioxide 23 Anion Gap 12 BUN 60 H Creatinine 6.79 H Est GFR ( Amer) 7 L Glucose 147 H Calcium 7.6 L Total Bilirubin 0.5 AST 35 Alkaline Phosphatase 59 Total Protein 5.8 L Albumin 2.8 L 09/15/20 00:38 Blood Blood Culture (PCR) - Final Staphylococcus Species 09/15/20 00:38 Blood Blood Culture - Final Staphylococcus Epidermidis 09/15/20 00:26 Catheterized Urine Urine Culture - Final Klebsiella Pneumoniae 09/15/20 09/15/20 09/15/20 00:38 00:38 08:50 Creatine Kinase 127 110 Troponin I 0.678 09/15/20 08:50 Creatine Kinase Troponin I 0.617 Impressions: Lung Scan-VQ NM 09/15/20 00:00 IMPRESSION: Low probability for pulmonary embolism. Abdomen/Pelvis CT 09/15/20 03:22 IMPRESSION: Small pleural effusions. No definite acute inflammatory process otherwise. Chest X-Ray 09/15/20 04:15 IMPRESSION: 1. Mild vascular congestion. 2. Stable prominence of the cardiac silhouette. 3. Right IJ central venous dialysis catheter tip terminates in the region of the cavoatrial junction. Chest CT 09/16/20 00:00 IMPRESSION: 1. There are occasional scattered peripheral areas of parenchymal opacification which may be due to atelectasis or inflammatory change. There is also mild bibasilar fibrosis and/or atelectasis. 2. Cardiomegaly. 3. Moderate coronary artery calcifications. Head CT 09/16/20 00:00 IMPRESSION: No acute intracranial abnormality TECHNICAL DOCUMENTATION: Quality ID # [id number]: Final reports with documentation of one or more dose reduction techniques (e.g., Automated exposure control, adjustment of the mA and/or kV according to patient size, use of iterative reconstruction technique) copyright 2011 [employer]- All Rights Reserved Assessment & Plan - Diagnosis (1) Pneumonia due to COVID-19 virus Is this a current diagnosis for this admission?: Yes Plan: Continue current medication management. (2) ESRD (end stage renal disease) on dialysis Is this a current diagnosis for this admission?: Yes Plan: As per nephrology team. on schedule for HD session 3 x / week. (3) Diabetes mellitus type 2 in obese Is this a current diagnosis for this admission?: Yes Plan: Continue current medication and dietary management. (4) Hypertension Qualifiers: Hypertension type: unspecified Qualified Code(s): I10 - Essential (primary) hypertension Is this a current diagnosis for this admission?: Yes Plan: Start on Clonidine Patch 0.3mg/day q weekly. (5) Intractable nausea and vomiting Is this a current diagnosis for this admission?: Yes Plan: Prochlorperazine 25 mg NH x 1 dose. Maintain on Zofran 4mg SL q 4 hours prn for nausea and vomiting. - Time Time Spent with patient: 25-34 minutes Level of Care: IMCU Medications reviewed and adjusted accordingly: Yes Anticipated discharge: Home with Homehealth Anticipated DC Timeframe: within 72 hours - Inpatient Certification Based on my medical assessment, after consideration of the patient's comorbidities, presenting symptoms, or acuity I expect that the services needed warrant INPATIENT care.: Yes I certify that my determination is in accordance with my understanding of Medicare's requirements for reasonable and necessary INPATIENT services [42 CFR 412.3e].: Yes Medical Necessity: Significant Comorbidiites Make Outpatient Treatment Too Risky, Need Close Monitoring Due to Risk of Patient Decompensation, Need For Continuous Telemetry Monitoring, Risk of Complication if Not Cared For in Hospital, Risk of Diagnosis Which Will Require Inpatient Eval/Care/Monitoring Post Hospital Care: D/C Nursing Staffing Coordinator Documentation - Plan Summary Plan Summary: See covering attending physician orders for details about care plan.
[2020-09-17] MEDS ORDERED: CLONIDINE 0.3 MG/24 HR PATCH.TDWK TD SCH (17:00)
[2020-09-17] MEDS ORDERED: PROCHLORPERAZINE MALEATE 25 MG SUPP.RECT PR ONE ×2 (17:30→18:08)
[2020-09-17] MEDS: MONTELUKAST SODIUM 10 MG TABLET PO SCH (18:01)
[2020-09-17] MEDS ORDERED: HYDRALAZINE HCL INJ/PF 20 MG/1 ML SDV IV PRN (21:48)
[2020-09-17] MEDS: DONEPEZIL HCL 5 MG TABLET PO SCH (22:58)
[2020-09-17] MEDS: ATORVASTATIN CALCIUM 80 MG TABLET PO SCH (22:58)
[2020-09-17] MEDS ORDERED: HYDRALAZINE HCL INJ/PF 20 MG/1 ML SDV ONE (23:02)
[2020-09-18] MEDS ORDERED: HYDRALAZINE HCL INJ/PF 20 MG/1 ML SDV IV PRN (01:55)
[2020-09-18] MEDS: HYDRALAZINE HCL 50 MG TABLET PO SCH ×3 (05:39→21:04)
[2020-09-18] MEDS: ONDANSETRON 4 MG TAB.RAPDIS SL PRN ×2 (05:40→17:41)
[2020-09-18] MEDS: HEPARIN SOD (PORCINE) 5,000 UNIT/ML 1 ML VIAL SUBCUT SCH ×3 (05:43→21:03)
[2020-09-18 06:28] LABS: MEAN CORPUSCULAR HGB CONC 33.3 g/dL (32.0-36.0); MEAN CORPUSCULAR VOLUME 81 fl (80-97); PLATELET COUNT 291 10^3/uL (150-450); RED BLOOD COUNT 3.33 10^6/uL (3.72-5.28); RED CELL DISTRIBUTION WIDTH 15.9 % (11.5-14.0); WHITE BLOOD COUNT 7.3 10^3/uL (4.0-10.5)
[2020-09-18 07:01] LABS: ALBUMIN 3.4 g/dL (3.5-5.0); ALKALINE PHOSPHATASE 70 U/L (38-126); ASPARTATE AMINO TRANSFERASE 40 U/L (14-36); BILIRUBIN,DIRECT 0.5 mg/dL (0.0-0.4); BILIRUBIN,TOTAL 0.6 mg/dL (0.2-1.3); BLOOD UREA NITROGEN 35 mg/dL (7-20); CALCIUM 8.4 mg/dL (8.4-10.2); CARBON DIOXIDE 18 mmol/L (22-30); CHLORIDE 103 mmol/L (98-107); GLUCOSE 178 mg/dL (75-110); POTASSIUM 3.5 mmol/L (3.6-5.0); TOTAL PROTEIN 6.7 g/dL (6.3-8.2)
[2020-09-18 07:09] LABS: ABSOLUTE LYMPHOCYTES# (MANUAL) 0.6 10^3/uL (0.5-4.7); ABSOLUTE MONOCYTES # (MANUAL) 0.8 10^3/uL (0.1-1.4); BAND NEUTROPHILS % (MANUAL) 1 % (3-5); BASOPHILS % (MANUAL) 0 % (0-2); EOSINOPHILS % (MANUAL) 0 % (0-6); LYMPHOCYTES % (MANUAL) 8 % (13-45); MONOCYTES % (MANUAL) 11 % (3-13); NUCLEATED RED BLOOD CELLS 1 /100 WBC (0); SEGMENTED NEUTROPHILS % (MAN) 80 % (42-78); TOTAL CELLS COUNTED 100
[2020-09-18 07:10] LABS: ANISOCYTOSIS 1+; PLATELET COMMENT ADEQUATE; POLYCHROMASIA 1+
[2020-09-18 07:24] LABS: ANION GAP 20 (5-19)
[2020-09-18] MEDS: INSULIN LISPRO 100 UNIT/ML 3 ML VIAL SUBCUT SCH ×4 (08:18→22:19)
[2020-09-18] MEDS: ACYCLOVIR 800 MG TABLET PO SCH ×5 (08:31→20:05)
[2020-09-18] MEDS: DEXAMETHASONE SOD PHOS INJ 10 MG/1 ML VIAL IV SCH (12:49)
[2020-09-18] MEDS: CIPROFLOXACIN 200 MG/D5W RTU 200 MG/100 ML RTUPB IV SCH ×2 (12:50→21:05)
[2020-09-18] MEDS: CLONIDINE HCL 0.2 MG TABLET PO SCH ×2 (13:23→15:15)
[2020-09-18] MEDS: AMLODIPINE BESYLATE 10 MG TABLET PO SCH (13:24)
[2020-09-18] MEDS: AZITHROMYCIN 250 MG TABLET PO SCH (13:24)
[2020-09-18] MEDS: VALSARTAN 160 MG TABLET PO SCH (13:25)
[2020-09-18] MEDS: NIFEDIPINE 30 MG TAB.ER.24 PO SCH (13:25)
[2020-09-18] MEDS: FUROSEMIDE 40 MG TABLET PO SCH ×2 (13:26→18:36)
[2020-09-18] MEDS: BUSPIRONE HCL 10 MG TABLET PO SCH ×2 (13:26→18:36)
[2020-09-18] MEDS: CETIRIZINE 10 MG TABLET PO SCH (13:26)
[2020-09-18] MEDS: ISOSORBIDE MONONITRATE 30 MG TAB.ER.24H PO SCH (13:26)
[2020-09-18] MEDS: ASPIRIN 81 MG TABLET, ENT COATED PO SCH (13:26)
[2020-09-18] MEDS: DOXAZOSIN MESYLATE 4 MG TABLET PO SCH ×2 (13:28→18:36)
[2020-09-18] MEDS: METOPROLOL TARTRATE 100 MG TABLET PO SCH ×2 (13:28→18:36)
[2020-09-18] MEDS: ASCORBIC ACID 500 MG TABLET PO SCH ×2 (13:29→18:33)
[2020-09-18] MEDS: LACTULOSE SYRUP 20 GM/30 ML UDCUP PO SCH (13:30)
[2020-09-18] MEDS: ZINC SULFATE 220 MG CAPSULE PO SCH (13:31)
[2020-09-18] MEDS: CHOLECALCIFEROL (D3) 1,000 UNIT (25 MCG) TABLET PO SCH (13:31)
[2020-09-18] MEDS: INSULIN GLARGINE,HUM.REC.ANLOG 1,000 UNIT/10 ML VIAL SUBCUT SCH (13:34)
[2020-09-18] MEDS: REMDESIVIR 100 MG in NORMAL SALINE 250 ML IV SCH (15:16)
--- NOTE | 2020-09-18 15:40 | PDOC PROGRESS REPORT ---
Subjective Date:: 09/18/20 Subjective:: Patient and nursing staff reported less nausea so far today but she continue to refuse her medication and spitting out crushed meds in apple sauce. She denied any sore throat or chest pain. Her blood pressure remain elevated. She declined antiemetic medication. Reason For Visit: COVID PNEUMONIA ESRD ON DIALYSIS Physical Exam Vital Signs: Temp Pulse Resp BP Pulse Ox 98.7 F 90 19 208/69 H 98 09/18/20 08:06 09/18/20 08:06 09/18/20 08:06 09/18/20 08:06 09/18/20 08:06 Intake & Output 09/17/20 09/18/20 09/19/20 06:59 06:59 06:59 Intake Total 610 1100 0 Output Total 3300 Balance 610 -2200 0 Weight 84 kg 80.3 kg Physical Exam: General appearance: PRESENT: no acute distress, obese Head exam: PRESENT: atraumatic, normocephalic Eye exam: PRESENT: conjunctiva pink. ABSENT: pallor, sclera icterus Mouth exam: PRESENT: moist Respiratory exam: PRESENT: clear to auscultation jeanette Cardiovascular exam: PRESENT: RRR, +S1, +S2 GI/Abdominal exam: PRESENT: normal bowel sounds, soft. ABSENT: tenderness Extremities exam: ABSENT: pedal edema Neurological exam: PRESENT: alert, awake, oriented to person, oriented to place, oriented to time, oriented to situation, CN II-XII grossly intact. ABSENT: motor sensory deficit Skin exam: PRESENT: dry, warm Results Laboratory Results: 09/18/20 06:04 09/18/20 06:04 09/18/20 09/18/20 06:04 06:04 WBC 7.3 RBC 3.33 L Hgb 9.0 L Hct 27.0 L MCV 81 MCH 27.0 MCHC 33.3 RDW 15.9 H Plt Count 291 Seg Neutrophils % Not Reportable Sodium 140.5 Potassium 3.5 L Chloride 103 Carbon Dioxide 18 L Anion Gap 20 H BUN 35 H Creatinine 5.17 H Est GFR ( Amer) 10 L Glucose 178 H Calcium 8.4 Total Bilirubin 0.6 AST 40 H Alkaline Phosphatase 70 Total Protein 6.7 Albumin 3.4 L 09/15/20 08:50 Throat Throat Culture - Final NORMAL KAUR 12/23/20 00:38 Blood Blood Culture (PCR) - Final Staphylococcus Species 09/15/20 00:38 Blood Blood Culture - Final Staphylococcus Epidermidis 09/15/20 00:26 Catheterized Urine Urine Culture - Final Klebsiella Pneumoniae 09/15/20 09/15/20 09/15/20 00:38 00:38 08:50 Creatine Kinase 127 110 Troponin I 0.678 09/15/20 08:50 Creatine Kinase Troponin I 0.617 Impressions: Lung Scan-VQ NM 09/15/20 00:00 IMPRESSION: Low probability for pulmonary embolism. Abdomen/Pelvis CT 09/15/20 03:22 IMPRESSION: Small pleural effusions. No definite acute inflammatory process otherwise. Chest X-Ray 09/15/20 04:15 IMPRESSION: 1. Mild vascular congestion. 2. Stable prominence of the cardiac silhouette. 3. Right IJ central venous dialysis catheter tip terminates in the region of the cavoatrial junction. Chest CT 09/16/20 00:00 IMPRESSION: 1. There are occasional scattered peripheral areas of parenchymal opacification which may be due to atelectasis or inflammatory change. There is also mild bibasilar fibrosis and/or atelectasis. 2. Cardiomegaly. 3. Moderate coronary artery calcifications. Head CT 09/16/20 00:00 IMPRESSION: No acute intracranial abnormality TECHNICAL DOCUMENTATION: Quality ID # [id number]: Final reports with documentation of one or more dose reduction techniques (e.g., Automated exposure control, adjustment of the mA and/or kV according to patient size, use of iterative reconstruction technique) copyright 2011 [employer]- All Rights Reserved Assessment & Plan - Diagnosis (1) Pneumonia due to COVID-19 virus Is this a current diagnosis for this admission?: Yes (2) ESRD (end stage renal disease) on dialysis Is this a current diagnosis for this admission?: Yes (3) Diabetes mellitus type 2 in obese Is this a current diagnosis for this admission?: Yes (4) Hypertension Qualifiers: Hypertension type: unspecified Qualified Code(s): I10 - Essential (primary) hypertension Is this a current diagnosis for this admission?: Yes (5) Intractable nausea and vomiting Is this a current diagnosis for this admission?: Yes - Time Time Spent with patient: 25-34 minutes Level of Care: IMCU Medications reviewed and adjusted accordingly: Yes Anticipated discharge: Home with Homehealth, SNF Anticipated DC Timeframe: within 72 hours - Inpatient Certification Based on my medical assessment, after consideration of the patient's comorbidities, presenting symptoms, or acuity I expect that the services needed warrant INPATIENT care.: Yes I certify that my determination is in accordance with my understanding of Medicare's requirements for reasonable and necessary INPATIENT services [42 CFR 412.3e].: Yes Medical Necessity: Significant Comorbidiites Make Outpatient Treatment Too Risky, Need Close Monitoring Due to Risk of Patient Decompensation, Need For Continuous Telemetry Monitoring, Risk of Complication if Not Cared For in Hospital, Risk of Diagnosis Which Will Require Inpatient Eval/Care/Monitoring Post Hospital Care: D/C Architectural Project Captain Documentation, D/C or Transfer Summary - Plan Summary Plan Summary: D/C Nifedipine administration while on Amlodipine. maintain on all other current medication management. Emphasized compliance with medication during my bedside visit with the patient.
[2020-09-18] MEDS: CLONIDINE 0.3 MG/24 HR PATCH.TDWK TD SCH (17:46)
[2020-09-18] MEDS: MONTELUKAST SODIUM 10 MG TABLET PO SCH (18:36)
[2020-09-18] MEDS: ATORVASTATIN CALCIUM 80 MG TABLET PO SCH (21:04)
[2020-09-18] MEDS: DONEPEZIL HCL 5 MG TABLET PO SCH (21:04)
[2020-09-18] MEDS: OXYCODONE-ACETAMINOPHEN 5-325 MG TABLET PO PRN (23:27)
[2020-09-19] MEDS: HEPARIN SOD (PORCINE) 5,000 UNIT/ML 1 ML VIAL SUBCUT SCH ×3 (05:37→21:13)
[2020-09-19] MEDS: HYDRALAZINE HCL 50 MG TABLET PO SCH ×3 (05:38→21:13)
[2020-09-19] MEDS: OXYCODONE-ACETAMINOPHEN 5-325 MG TABLET PO PRN ×2 (05:38→21:12)
[2020-09-19 07:15] LABS: HEMATOCRIT 26.8 % (36.0-47.0); MEAN CORPUSCULAR HEMOGLOBIN 27.6 pg (27.0-33.4); MEAN CORPUSCULAR HGB CONC 33.7 g/dL (32.0-36.0); MEAN CORPUSCULAR VOLUME 82 fl (80-97); PLATELET COUNT 301 10^3/uL (150-450); RED BLOOD COUNT 3.27 10^6/uL (3.72-5.28); RED CELL DISTRIBUTION WIDTH 15.9 % (11.5-14.0); WHITE BLOOD COUNT 8.1 10^3/uL (4.0-10.5)
[2020-09-19 07:32] LABS: ALBUMIN 3.1 g/dL (3.5-5.0); ALKALINE PHOSPHATASE 66 U/L (38-126); ANION GAP 15 (5-19); ASPARTATE AMINO TRANSFERASE 35 U/L (14-36); BILIRUBIN,DIRECT 0.5 mg/dL (0.0-0.4); BILIRUBIN,TOTAL 0.6 mg/dL (0.2-1.3); BLOOD UREA NITROGEN 47 mg/dL (7-20); CALCIUM 8.1 mg/dL (8.4-10.2); CARBON DIOXIDE 20 mmol/L (22-30); CHLORIDE 103 mmol/L (98-107); GLUCOSE 154 mg/dL (75-110); POTASSIUM 3.6 mmol/L (3.6-5.0); TOTAL PROTEIN 6.2 g/dL (6.3-8.2)
[2020-09-19] MEDS: INSULIN LISPRO 100 UNIT/ML 3 ML VIAL SUBCUT SCH ×4 (08:11→22:00)
[2020-09-19] MEDS: ACYCLOVIR 800 MG TABLET PO SCH ×5 (08:47→20:31)
[2020-09-19 09:00] LABS: ABSOLUTE LYMPHOCYTES# (MANUAL) 0.5 10^3/uL (0.5-4.7); ABSOLUTE MONOCYTES # (MANUAL) 1.2 10^3/uL (0.1-1.4); BASOPHILS % (MANUAL) 0 % (0-2); EOSINOPHILS % (MANUAL) 0 % (0-6); LYMPHOCYTES % (MANUAL) 6 % (13-45); MONOCYTES % (MANUAL) 15 % (3-13); SEGMENTED NEUTROPHILS % (MAN) 79 % (42-78); TOTAL CELLS COUNTED 100
[2020-09-19 09:02] LABS: ANISOCYTOSIS 1+; BURR CELLS 2+; OVALOCYTES SLIGHT; PLATELET COMMENT ADEQUATE
[2020-09-19] MEDS: DEXAMETHASONE SOD PHOS INJ 10 MG/1 ML VIAL IV SCH (10:48)
[2020-09-19] MEDS: REMDESIVIR 100 MG in NORMAL SALINE 250 ML IV SCH (10:49)
[2020-09-19] MEDS: ASPIRIN 81 MG TABLET, ENT COATED PO SCH (11:03)
[2020-09-19] MEDS: DOXAZOSIN MESYLATE 4 MG TABLET PO SCH ×2 (11:03→17:04)
[2020-09-19] MEDS: AZITHROMYCIN 250 MG TABLET PO SCH (11:03)
[2020-09-19] MEDS: VALSARTAN 160 MG TABLET PO SCH (11:03)
[2020-09-19] MEDS: BUSPIRONE HCL 10 MG TABLET PO SCH ×2 (11:04→17:04)
[2020-09-19] MEDS: METOPROLOL TARTRATE 100 MG TABLET PO SCH ×2 (11:04→17:06)
[2020-09-19] MEDS: ASCORBIC ACID 500 MG TABLET PO SCH ×2 (11:04→17:04)
[2020-09-19] MEDS: CETIRIZINE 10 MG TABLET PO SCH (11:05)
[2020-09-19] MEDS: ZINC SULFATE 220 MG CAPSULE PO SCH (11:05)
[2020-09-19] MEDS: AMLODIPINE BESYLATE 10 MG TABLET PO SCH (11:05)
[2020-09-19] MEDS: ISOSORBIDE MONONITRATE 30 MG TAB.ER.24H PO SCH (11:05)
[2020-09-19] MEDS: FUROSEMIDE 40 MG TABLET PO SCH ×2 (11:05→17:04)
[2020-09-19] MEDS: NIFEDIPINE 30 MG TAB.ER.24 PO SCH (11:05)
[2020-09-19] MEDS: LACTULOSE SYRUP 20 GM/30 ML UDCUP PO SCH (11:06)
[2020-09-19] MEDS: CHOLECALCIFEROL (D3) 1,000 UNIT (25 MCG) TABLET PO SCH (11:06)
[2020-09-19] MEDS: INSULIN GLARGINE,HUM.REC.ANLOG 1,000 UNIT/10 ML VIAL SUBCUT SCH (11:20)
--- NOTE | 2020-09-19 11:35 | PDOC PROGRESS REPORT ---
Subjective Date:: 09/19/20 Subjective:: Patient denied any chest pain or difficulty with breathing. More compliant with medication administration so far today. Blood pressure is comparatively better. Tolerating oral feeding. Reason For Visit: COVID PNEUMONIA ESRD ON DIALYSIS Physical Exam Vital Signs: Temp Pulse Resp BP Pulse Ox 97.4 F 71 15 184/58 H 96 09/19/20 07:40 09/19/20 07:40 09/19/20 07:40 09/19/20 07:40 09/19/20 07:40 Intake & Output 09/18/20 09/19/20 09/20/20 06:59 06:59 06:59 Intake Total 1100 820 Output Total 3300 350 Balance -2200 470 Weight 80.3 kg 77.6 kg Physical Exam: General appearance: PRESENT: no acute distress, obese Head exam: PRESENT: atraumatic, normocephalic Eye exam: PRESENT: conjunctiva pink. ABSENT: pallor, sclera icterus Mouth exam: PRESENT: moist Respiratory exam: PRESENT: clear to auscultation jeanette Cardiovascular exam: PRESENT: RRR, +S1, +S2 GI/Abdominal exam: PRESENT: normal bowel sounds, soft. ABSENT: tenderness Extremities exam: ABSENT: pedal edema Neurological exam: PRESENT: alert, awake, oriented to person, oriented to place, oriented to time, oriented to situation, CN II-XII grossly intact. ABSENT: motor sensory deficit Skin exam: PRESENT: dry, warm Results Laboratory Results: 09/19/20 06:27 09/19/20 06:27 09/19/20 09/19/20 06:27 06:27 WBC 8.1 RBC 3.27 L Hgb 9.0 L Hct 26.8 L MCV 82 MCH 27.6 MCHC 33.7 RDW 15.9 H Plt Count 301 Seg Neutrophils % Not Reportable Sodium 138.1 Potassium 3.6 Chloride 103 Carbon Dioxide 20 L Anion Gap 15 BUN 47 H Creatinine 6.10 H Est GFR ( Amer) 8 L Glucose 154 H Calcium 8.1 L Total Bilirubin 0.6 AST 35 Alkaline Phosphatase 66 Total Protein 6.2 L Albumin 3.1 L 09/15/20 08:50 Throat Throat Culture - Final NORMAL KAUR 09/15/20 09/15/20 09/15/20 00:38 00:38 08:50 Creatine Kinase 127 110 Troponin I 0.678 09/15/20 08:50 Creatine Kinase Troponin I 0.617 Impressions: Lung Scan-VQ NM 09/15/20 00:00 IMPRESSION: Low probability for pulmonary embolism. Abdomen/Pelvis CT 09/15/20 03:22 IMPRESSION: Small pleural effusions. No definite acute inflammatory process otherwise. Chest X-Ray 09/15/20 04:15 IMPRESSION: 1. Mild vascular congestion. 2. Stable prominence of the cardiac silhouette. 3. Right IJ central venous dialysis catheter tip terminates in the region of the cavoatrial junction. Chest CT 09/16/20 00:00 IMPRESSION: 1. There are occasional scattered peripheral areas of parenchymal opacification which may be due to atelectasis or inflammatory change. There is also mild bibasilar fibrosis and/or atelectasis. 2. Cardiomegaly. 3. Moderate coronary artery calcifications. Head CT 09/16/20 00:00 IMPRESSION: No acute intracranial abnormality TECHNICAL DOCUMENTATION: Quality ID # 436: Final reports with documentation of one or more dose reduction techniques (e.g., Automated exposure control, adjustment of the mA and/or kV according to patient size, use of iterative reconstruction technique) copyright 2011 [employer]- All Rights Reserved Assessment & Plan - Diagnosis (1) Pneumonia due to COVID-19 virus Is this a current diagnosis for this admission?: Yes (2) ESRD (end stage renal disease) on dialysis Is this a current diagnosis for this admission?: Yes (3) Diabetes mellitus type 2 in obese Is this a current diagnosis for this admission?: Yes (4) Hypertension Qualifiers: Hypertension type: unspecified Qualified Code(s): I10 - Essential (primary) hypertension Is this a current diagnosis for this admission?: Yes (5) Intractable nausea and vomiting Is this a current diagnosis for this admission?: Yes - Time Time Spent with patient: 25-34 minutes Level of Care: IMCU Medications reviewed and adjusted accordingly: Yes Anticipated discharge: Home with Homehealth, SNF Anticipated DC Timeframe: within 72 hours - Inpatient Certification Based on my medical assessment, after consideration of the patient's comorbidities, presenting symptoms, or acuity I expect that the services needed warrant INPATIENT care.: Yes I certify that my determination is in accordance with my understanding of Medicare's requirements for reasonable and necessary INPATIENT services [42 CFR 412.3e].: Yes Medical Necessity: Significant Comorbidiites Make Outpatient Treatment Too Risky, Need Close Monitoring Due to Risk of Patient Decompensation, Need For Continuous Telemetry Monitoring, Risk of Complication if Not Cared For in Hospital, Risk of Diagnosis Which Will Require Inpatient Eval/Care/Monitoring Post Hospital Care: D/C Outreach Director Documentation, D/C or Transfer Summary - Plan Summary Plan Summary: Continue current medication management. She is schedule for HD session tomorrow.
[2020-09-19] MEDS: CIPROFLOXACIN 200 MG/D5W RTU 200 MG/100 ML RTUPB IV SCH ×2 (13:11→21:12)
[2020-09-19] MEDS: MONTELUKAST SODIUM 10 MG TABLET PO SCH (17:04)
[2020-09-19] MEDS ORDERED: EPOETIN ALFA-EPBX 10,000 UNIT in SYRINGE, DISPOSABLE, 1 EACH IV PRN (18:10)
[2020-09-19] MEDS: DONEPEZIL HCL 5 MG TABLET PO SCH (21:12)
[2020-09-19] MEDS: ATORVASTATIN CALCIUM 80 MG TABLET PO SCH (21:13)
[2020-09-20] MEDS ORDERED: HEPARIN SOD (PORCINE) 1,000 UNIT/ML 10 ML VIAL IV PRN (05:00)
[2020-09-20] MEDS ORDERED: NORMAL SALINE 1000 ML 1,000 ML IV PRN (05:00)
[2020-09-20] MEDS: HYDRALAZINE HCL 50 MG TABLET PO SCH ×3 (05:34→22:09)
[2020-09-20] MEDS: HEPARIN SOD (PORCINE) 5,000 UNIT/ML 1 ML VIAL SUBCUT SCH ×3 (05:37→22:10)
[2020-09-20 06:21] LABS: HEMOGLOBIN 8.5 g/dL (12.0-15.5); MEAN CORPUSCULAR HEMOGLOBIN 27.8 pg (27.0-33.4); MEAN CORPUSCULAR HGB CONC 33.9 g/dL (32.0-36.0); MEAN CORPUSCULAR VOLUME 82 fl (80-97); PLATELET COUNT 278 10^3/uL (150-450); RED BLOOD COUNT 3.05 10^6/uL (3.72-5.28); RED CELL DISTRIBUTION WIDTH 15.9 % (11.5-14.0); WHITE BLOOD COUNT 9.3 10^3/uL (4.0-10.5)
[2020-09-20 06:44] LABS: ALKALINE PHOSPHATASE 59 U/L (38-126); ANION GAP 14 (5-19); ASPARTATE AMINO TRANSFERASE 26 U/L (14-36); BILIRUBIN,DIRECT 0.5 mg/dL (0.0-0.4); BILIRUBIN,TOTAL 0.5 mg/dL (0.2-1.3); BLOOD UREA NITROGEN 58 mg/dL (7-20); CALCIUM 7.7 mg/dL (8.4-10.2); CARBON DIOXIDE 21 mmol/L (22-30); CHLORIDE 103 mmol/L (98-107); GLUCOSE 111 mg/dL (75-110); POTASSIUM 3.1 mmol/L (3.6-5.0); TOTAL PROTEIN 5.4 g/dL (6.3-8.2)
[2020-09-20 07:07] LABS: ABSOLUTE LYMPHOCYTES# (MANUAL) 1.3 10^3/uL (0.5-4.7); ABSOLUTE MONOCYTES # (MANUAL) 0.7 10^3/uL (0.1-1.4); BAND NEUTROPHILS % (MANUAL) 1 % (3-5); BASOPHILS % (MANUAL) 0 % (0-2); EOSINOPHILS % (MANUAL) 0 % (0-6); LYMPHOCYTES % (MANUAL) 14 % (13-45); MONOCYTES % (MANUAL) 7 % (3-13); NUCLEATED RED BLOOD CELLS 4 /100 WBC (0); SEGMENTED NEUTROPHILS % (MAN) 78 % (42-78); TOTAL CELLS COUNTED 100
[2020-09-20 07:08] LABS: ANISOCYTOSIS 1+; HYPOCHROMASIA 1+; PLATELET COMMENT ADEQUATE; POLYCHROMASIA 1+
[2020-09-20 07:18] LABS: ALBUMIN 2.7 g/dL (3.5-5.0)
[2020-09-20] MEDS: INSULIN LISPRO 100 UNIT/ML 3 ML VIAL SUBCUT SCH ×4 (08:22→22:10)
[2020-09-20] MEDS: ACYCLOVIR 800 MG TABLET PO SCH ×5 (08:29→19:34)
[2020-09-20] MEDS ORDERED: EPOETIN ALFA-EPBX 20,000 UNITS (ESRD) in SYRINGE IV PRN (09:12)
--- NOTE | 2020-09-20 12:06 | PDOC PROGRESS REPORT ---
Subjective Date:: 09/20/20 Reason For Visit: Patient was seen today on dialysis. She continues to feel very weak and tired. Rather lethargic. However she denies any history of chest pain, shortness of breath, fever or chills. Dialysis going without any issues but for the fact that when you try to remove fluid she starts to drop her blood pressure. Therefore ultrafiltration is going to be rather minimal. Labs and medications were reviewed. Dialysis orders were reviewed with the treating dialysis nurse. Physical Exam Vital Signs: Temp Pulse Resp BP Pulse Ox 98.9 F 66 17 148/66 H 95 09/20/20 07:27 09/20/20 07:27 09/20/20 07:27 09/20/20 07:27 09/20/20 07:27 Intake & Output 09/19/20 09/20/20 09/21/20 06:59 06:59 06:59 Intake Total 820 730 Output Total 350 0 Balance 470 730 Weight 77.6 kg 82.5 kg General appearance: PRESENT: no acute distress, disheveled Respiratory exam: PRESENT: clear to auscultation jeanette, decreased breath sounds. ABSENT: crackles Cardiovascular exam: PRESENT: +S1, +S2 GI/Abdominal exam: PRESENT: normal bowel sounds, soft. ABSENT: organomegaly, tenderness Neurological exam: PRESENT: awake, oriented to person Results Laboratory Results: 09/20/20 05:35 09/20/20 05:35 09/20/20 09/20/20 05:35 05:35 WBC 9.3 RBC 3.05 L Hgb 8.5 L Hct 25.0 L MCV 82 MCH 27.8 MCHC 33.9 RDW 15.9 H Plt Count 278 Seg Neutrophils % Not Reportable Sodium 137.9 Potassium 3.1 L Chloride 103 Carbon Dioxide 21 L Anion Gap 14 BUN 58 H Creatinine 6.69 H Est GFR ( Amer) 7 L Glucose 111 H Calcium 7.7 L Total Bilirubin 0.5 AST 26 Alkaline Phosphatase 59 Total Protein 5.4 L Albumin 2.7 L 09/15/20 03:20 Blood Blood Culture - Final NO GROWTH IN 5 DAYS 09/15/20 09/15/20 09/15/20 00:38 00:38 08:50 Creatine Kinase 127 110 Troponin I 0.678 09/15/20 08:50 Creatine Kinase Troponin I 0.617 Impressions: Lung Scan-VQ NM 09/15/20 00:00 IMPRESSION: Low probability for pulmonary embolism. Abdomen/Pelvis CT 09/15/20 03:22 IMPRESSION: Small pleural effusions. No definite acute inflammatory process otherwise. Chest X-Ray 09/15/20 04:15 IMPRESSION: 1. Mild vascular congestion. 2. Stable prominence of the cardiac silhouette. 3. Right IJ central venous dialysis catheter tip terminates in the region of the cavoatrial junction. Chest CT 09/16/20 00:00 IMPRESSION: 1. There are occasional scattered peripheral areas of parenchymal opacification which may be due to atelectasis or inflammatory change. There is also mild bibasilar fibrosis and/or atelectasis. 2. Cardiomegaly. 3. Moderate coronary artery calcifications. Head CT 09/16/20 00:00 IMPRESSION: No acute intracranial abnormality TECHNICAL DOCUMENTATION: Quality ID # 436: Final reports with documentation of one or more dose reduction techniques (e.g., Automated exposure control, adjustment of the mA and/or kV according to patient size, use of iterative reconstruction technique) copyright 2011 [email or web address]- All Rights Reserved Assessment & Plan - Diagnosis (1) ESRD (end stage renal disease) on dialysis Is this a current diagnosis for this admission?: Yes Plan: Patient admitted with Covid pneumonia and UTI. Currently on dialysis. Blood pressures are better compared to when she came in when it was quite high. Plan to remove approximately 500-1 L of fluid. Labs and medications reviewed. Dialysis orders were reviewed with treating dialysis nurse. (2) Pneumonia due to COVID-19 virus Is this a current diagnosis for this admission?: Yes Plan: As per Dr. Zavala. (3) Diabetes mellitus type 2 in obese Is this a current diagnosis for this admission?: Yes Plan: As per Dr. aZvala. (4) Hypertension Qualifiers: Hypertension type: unspecified Qualified Code(s): I10 - Essential (primary) hypertension Is this a current diagnosis for this admission?: Yes Plan: Now under better control. Continue current guidelines. Monitor. See response to dialysis. (5) Physical debility Plan: Will need rehabilitation. (6) Urinary tract infection Qualifiers: Urinary tract infection type: site unspecified Plan: On antibiotics.
[2020-09-20] MEDS: NIFEDIPINE 30 MG TAB.ER.24 PO SCH (12:28)
[2020-09-20] MEDS: CIPROFLOXACIN 200 MG/D5W RTU 200 MG/100 ML RTUPB IV SCH ×2 (12:28→22:11)
[2020-09-20] MEDS: VALSARTAN 160 MG TABLET PO SCH (12:29)
[2020-09-20] MEDS: DEXAMETHASONE SOD PHOS INJ 10 MG/1 ML VIAL IV SCH (12:29)
[2020-09-20] MEDS: BUSPIRONE HCL 10 MG TABLET PO SCH ×2 (12:29→19:33)
[2020-09-20] MEDS: ZINC SULFATE 220 MG CAPSULE PO SCH (12:29)
[2020-09-20] MEDS: CHOLECALCIFEROL (D3) 1,000 UNIT (25 MCG) TABLET PO SCH (12:29)
[2020-09-20] MEDS: ISOSORBIDE MONONITRATE 30 MG TAB.ER.24H PO SCH (12:30)
[2020-09-20] MEDS: ASPIRIN 81 MG TABLET, ENT COATED PO SCH (12:30)
[2020-09-20] MEDS: FUROSEMIDE 40 MG TABLET PO SCH ×2 (12:30→19:32)
[2020-09-20] MEDS: DOXAZOSIN MESYLATE 4 MG TABLET PO SCH ×2 (12:30→19:33)
[2020-09-20] MEDS: CETIRIZINE 10 MG TABLET PO SCH (12:31)
[2020-09-20] MEDS: AMLODIPINE BESYLATE 10 MG TABLET PO SCH (12:31)
[2020-09-20] MEDS: METOPROLOL TARTRATE 100 MG TABLET PO SCH ×2 (12:31→19:33)
[2020-09-20] MEDS: AZITHROMYCIN 250 MG TABLET PO SCH (12:31)
[2020-09-20] MEDS: LACTULOSE SYRUP 20 GM/30 ML UDCUP PO SCH (12:32)
[2020-09-20] MEDS: ASCORBIC ACID 500 MG TABLET PO SCH ×2 (12:41→19:32)
[2020-09-20] MEDS: INSULIN GLARGINE,HUM.REC.ANLOG 1,000 UNIT/10 ML VIAL SUBCUT SCH (12:42)
[2020-09-20] MEDS: MONTELUKAST SODIUM 10 MG TABLET PO SCH (19:32)
--- NOTE | 2020-09-20 20:15 | PDOC PROGRESS REPORT ---
Subjective Date:: 09/20/20 Subjective:: Patient was seen by the bedside, the predominant symptom is extreme fatigue, she says she has no energy but she denies any shortness of breath or chest pain, she had hemodialysis today Reason For Visit: COVID PNEUMONIA ESRD ON DIALYSIS Physical Exam Vital Signs: Temp Pulse Resp BP Pulse Ox 98.9 F 70 13 165/63 H 96 09/20/20 15:58 09/20/20 15:58 09/20/20 15:58 09/20/20 15:58 09/20/20 15:58 Intake & Output 09/19/20 09/20/20 09/21/20 06:59 06:59 06:59 Intake Total 820 730 598 Output Total 350 0 600 Balance 470 730 -2 Weight 77.6 kg 82.5 kg 82.5 kg General appearance: PRESENT: no acute distress Eye exam: PRESENT: PERRLA Respiratory exam: PRESENT: clear to auscultation jeantete Cardiovascular exam: PRESENT: +S1, +S2 GI/Abdominal exam: PRESENT: soft Neurological exam: PRESENT: alert Results Laboratory Results: 09/20/20 05:35 09/20/20 05:35 09/20/20 09/20/20 05:35 05:35 WBC 9.3 RBC 3.05 L Hgb 8.5 L Hct 25.0 L MCV 82 MCH 27.8 MCHC 33.9 RDW 15.9 H Plt Count 278 Seg Neutrophils % Not Reportable Sodium 137.9 Potassium 3.1 L Chloride 103 Carbon Dioxide 21 L Anion Gap 14 BUN 58 H Creatinine 6.69 H Est GFR ( Amer) 7 L Glucose 111 H Calcium 7.7 L Total Bilirubin 0.5 AST 26 Alkaline Phosphatase 59 Total Protein 5.4 L Albumin 2.7 L 09/15/20 03:20 Blood Blood Culture - Final NO GROWTH IN 5 DAYS 09/15/20 09/15/20 09/15/20 00:38 00:38 08:50 Creatine Kinase 127 110 Troponin I 0.678 09/15/20 08:50 Creatine Kinase Troponin I 0.617 Impressions: Lung Scan-VQ NM 09/15/20 00:00 IMPRESSION: Low probability for pulmonary embolism. Abdomen/Pelvis CT 09/15/20 03:22 IMPRESSION: Small pleural effusions. No definite acute inflammatory process otherwise. Chest X-Ray 09/15/20 04:15 IMPRESSION: 1. Mild vascular congestion. 2. Stable prominence of the cardiac silhouette. 3. Right IJ central venous dialysis catheter tip terminates in the region of the cavoatrial junction. Chest CT 09/16/20 00:00 IMPRESSION: 1. There are occasional scattered peripheral areas of parenchymal opacification which may be due to atelectasis or inflammatory change. There is also mild bibasilar fibrosis and/or atelectasis. 2. Cardiomegaly. 3. Moderate coronary artery calcifications. Head CT 09/16/20 00:00 IMPRESSION: No acute intracranial abnormality TECHNICAL DOCUMENTATION: Quality ID # 436: Final reports with documentation of one or more dose reduction techniques (e.g., Automated exposure control, adjustment of the mA and/or kV according to patient size, use of iterative reconstruction technique) copyright 2011 [employer]- All Rights Reserved Assessment & Plan - Diagnosis (1) Acute hypoxemic respiratory failure Is this a current diagnosis for this admission?: Yes Plan: Continue oxygen supplementation with nasal cannula (2) Pneumonia due to COVID-19 virus Is this a current diagnosis for this admission?: Yes (3) ESRD (end stage renal disease) Is this a current diagnosis for this admission?: Yes Plan: Management per nephrology (4) Type 2 diabetes mellitus with diabetic chronic kidney disease Qualifiers: Diabetes mellitus jail insulin use: with jail use Chronic kidney disease stage: on chronic dialysis Qualified Code(s): E11.22 - Type 2 diabetes mellitus with diabetic chronic kidney disease; N18.6 - End stage renal disease; Z79.4 - FDC (current) use of insulin; Z99.2 - Dependence on renal dialysis Is this a current diagnosis for this admission?: Yes - Time Time Spent with patient: 25-34 minutes Level of Care: IMCU Medications reviewed and adjusted accordingly: Yes Anticipated discharge: Home Anticipated DC Timeframe: within 72 hours - Inpatient Certification Based on my medical assessment, after consideration of the patient's comorbidities, presenting symptoms, or acuity I expect that the services needed warrant INPATIENT care.: Yes I certify that my determination is in accordance with my understanding of Medicare's requirements for reasonable and necessary INPATIENT services [42 CFR 412.3e].: Yes
[2020-09-20] MEDS: ATORVASTATIN CALCIUM 80 MG TABLET PO SCH (22:10)
[2020-09-20] MEDS: DONEPEZIL HCL 5 MG TABLET PO SCH (22:10)
[2020-09-21] MEDS: HYDRALAZINE HCL 50 MG TABLET PO SCH ×2 (05:36→18:03)
[2020-09-21] MEDS: HEPARIN SOD (PORCINE) 5,000 UNIT/ML 1 ML VIAL SUBCUT SCH ×2 (05:37→18:03)
[2020-09-21 06:16] LABS: HEMATOCRIT 27.6 % (36.0-47.0); HEMOGLOBIN 9.4 g/dL (12.0-15.5); MEAN CORPUSCULAR HEMOGLOBIN 28.4 pg (27.0-33.4); MEAN CORPUSCULAR HGB CONC 34.2 g/dL (32.0-36.0); MEAN CORPUSCULAR VOLUME 83 fl (80-97); PLATELET COUNT 285 10^3/uL (150-450); RED BLOOD COUNT 3.32 10^6/uL (3.72-5.28); RED CELL DISTRIBUTION WIDTH 16.1 % (11.5-14.0); WHITE BLOOD COUNT 10.1 10^3/uL (4.0-10.5)
[2020-09-21 06:33] LABS: ALKALINE PHOSPHATASE 60 U/L (38-126); ANION GAP 11 (5-19); ASPARTATE AMINO TRANSFERASE 33 U/L (14-36); BILIRUBIN,DIRECT 0.5 mg/dL (0.0-0.4); BILIRUBIN,TOTAL 0.6 mg/dL (0.2-1.3); CALCIUM 7.7 mg/dL (8.4-10.2); CARBON DIOXIDE 25 mmol/L (22-30); CHLORIDE 99 mmol/L (98-107); GLUCOSE 92 mg/dL (75-110); POTASSIUM 3.8 mmol/L (3.6-5.0)
[2020-09-21 06:49] LABS: BLOOD UREA NITROGEN 34 mg/dL (7-20)
[2020-09-21 07:02] LABS: ABSOLUTE MONOCYTES # (MANUAL) 0.6 10^3/uL (0.1-1.4); BASOPHILS % (MANUAL) 0 % (0-2); EOSINOPHILS % (MANUAL) 0 % (0-6); LYMPHOCYTES % (MANUAL) 10 % (13-45); MONOCYTES % (MANUAL) 6 % (3-13); SEGMENTED NEUTROPHILS % (MAN) 84 % (42-78); TOTAL CELLS COUNTED 100
[2020-09-21 07:03] LABS: ANISOCYTOSIS 1+
[2020-09-21 07:04] LABS: BURR CELLS SLIGHT; OVALOCYTES SLIGHT; PLATELET COMMENT ADEQUATE; POLYCHROMASIA SLIGHT
[2020-09-21] MEDS: INSULIN LISPRO 100 UNIT/ML 3 ML VIAL SUBCUT SCH ×3 (08:48→17:03)
[2020-09-21] MEDS: ACYCLOVIR 800 MG TABLET PO SCH ×5 (09:38→18:18)
[2020-09-21] MEDS: ASPIRIN 81 MG TABLET, ENT COATED PO SCH (09:39)
[2020-09-21] MEDS: VALSARTAN 160 MG TABLET PO SCH (09:39)
[2020-09-21] MEDS: LACTULOSE SYRUP 20 GM/30 ML UDCUP PO SCH (09:39)
[2020-09-21] MEDS: FUROSEMIDE 40 MG TABLET PO SCH ×2 (09:40→18:19)
[2020-09-21] MEDS: BUSPIRONE HCL 10 MG TABLET PO SCH ×2 (09:40→18:19)
[2020-09-21] MEDS: AZITHROMYCIN 250 MG TABLET PO SCH (09:40)
[2020-09-21] MEDS: AMLODIPINE BESYLATE 10 MG TABLET PO SCH (09:40)
[2020-09-21] MEDS: NIFEDIPINE 30 MG TAB.ER.24 PO SCH (09:41)
[2020-09-21] MEDS: ZINC SULFATE 220 MG CAPSULE PO SCH (09:41)
[2020-09-21] MEDS: ISOSORBIDE MONONITRATE 30 MG TAB.ER.24H PO SCH (09:41)
[2020-09-21] MEDS: CHOLECALCIFEROL (D3) 1,000 UNIT (25 MCG) TABLET PO SCH (09:41)
[2020-09-21] MEDS: DOXAZOSIN MESYLATE 4 MG TABLET PO SCH ×2 (09:41→18:19)
[2020-09-21] MEDS: ASCORBIC ACID 500 MG TABLET PO SCH ×2 (09:41→18:19)
[2020-09-21] MEDS: METOPROLOL TARTRATE 100 MG TABLET PO SCH ×2 (09:41→18:19)
[2020-09-21] MEDS: CETIRIZINE 10 MG TABLET PO SCH (09:41)
[2020-09-21] MEDS: DEXAMETHASONE SOD PHOS INJ 10 MG/1 ML VIAL IV SCH (09:42)
[2020-09-21] MEDS: CIPROFLOXACIN 200 MG/D5W RTU 200 MG/100 ML RTUPB IV SCH (09:44)
[2020-09-21] MEDS: INSULIN GLARGINE,HUM.REC.ANLOG 1,000 UNIT/10 ML VIAL SUBCUT SCH (09:48)
[2020-09-21] MEDS: MONTELUKAST SODIUM 10 MG TABLET PO SCH (18:19)
--- NOTE | 2020-09-21 20:24 | PDOC PROGRESS REPORT ---
Subjective Date:: 09/21/20 Subjective:: Patient seen by the bedside, she has Covid pneumonia, she is still fatigued, she will need rehabilitation I had a long discussion with the spouse about her condition and plan of care Reason For Visit: COVID PNEUMONIA ESRD ON DIALYSIS Physical Exam Vital Signs: Temp Pulse Resp BP Pulse Ox 98.7 F 65 18 141/52 H 96 09/21/20 16:10 09/21/20 16:10 09/21/20 16:10 09/21/20 16:10 09/21/20 16:10 Intake & Output 09/20/20 09/21/20 09/22/20 06:59 06:59 06:59 Intake Total 730 698 420 Output Total 0 600 Balance 730 98 420 Weight 82.5 kg 81.9 kg General appearance: PRESENT: no acute distress Eye exam: PRESENT: PERRLA Respiratory exam: PRESENT: clear to auscultation jeanette Cardiovascular exam: PRESENT: +S1, +S2 GI/Abdominal exam: PRESENT: soft Neurological exam: PRESENT: alert Results Laboratory Results: 09/21/20 05:23 09/21/20 05:23 09/21/20 09/21/20 05:23 05:23 WBC 10.1 RBC 3.32 L Hgb 9.4 L Hct 27.6 L MCV 83 MCH 28.4 MCHC 34.2 RDW 16.1 H Plt Count 285 Seg Neutrophils % Not Reportable Sodium 135.4 L Potassium 3.8 Chloride 99 Carbon Dioxide 25 Anion Gap 11 BUN 34 H D Creatinine 4.16 H Est GFR ( Amer) 13 L Glucose 92 Calcium 7.7 L Total Bilirubin 0.6 AST 33 Alkaline Phosphatase 60 Total Protein 6.0 L Albumin 3.0 L 09/15/20 09/15/20 09/15/20 00:38 00:38 08:50 Creatine Kinase 127 110 Troponin I 0.678 09/15/20 08:50 Creatine Kinase Troponin I 0.617 Impressions: Lung Scan-VQ NM 09/15/20 00:00 IMPRESSION: Low probability for pulmonary embolism. Abdomen/Pelvis CT 09/15/20 03:22 IMPRESSION: Small pleural effusions. No definite acute inflammatory process otherwise. Chest X-Ray 09/15/20 04:15 IMPRESSION: 1. Mild vascular congestion. 2. Stable prominence of the cardiac silhouette. 3. Right IJ central venous dialysis catheter tip terminates in the region of the cavoatrial junction. Chest CT 09/16/20 00:00 IMPRESSION: 1. There are occasional scattered peripheral areas of parenchymal opacification which may be due to atelectasis or inflammatory change. There is also mild bibasilar fibrosis and/or atelectasis. 2. Cardiomegaly. 3. Moderate coronary artery calcifications. Head CT 09/16/20 00:00 IMPRESSION: No acute intracranial abnormality TECHNICAL DOCUMENTATION: Quality ID # [id number]: Final reports with documentation of one or more dose reduction techniques (e.g., Automated exposure control, adjustment of the mA and/or kV according to patient size, use of iterative reconstruction technique) copyright 2011 [employer]- All Rights Reserved Assessment & Plan - Diagnosis (1) Acute hypoxemic respiratory failure Is this a current diagnosis for this admission?: Yes Plan: Continue oxygen supplementation with nasal cannula (2) Pneumonia due to COVID-19 virus Is this a current diagnosis for this admission?: Yes (3) ESRD (end stage renal disease) Is this a current diagnosis for this admission?: Yes Plan: Management per nephrology (4) Type 2 diabetes mellitus with diabetic chronic kidney disease Qualifiers: Diabetes mellitus intermediate manager insulin use: with intermediate manager use Chronic kidney disease stage: on chronic dialysis Qualified Code(s): E11.22 - Type 2 diabetes mellitus with diabetic chronic kidney disease; N18.6 - End stage renal disease; Z79.4 - correction (current) use of insulin; Z99.2 - Dependence on renal dialysis Is this a current diagnosis for this admission?: Yes (5) Debility Is this a current diagnosis for this admission?: Yes Plan: . She will need rehabilitation, consultation requested from discharge planning, this may be challenging in light of her Covid pneumonia diagnosis - Time Time Spent with patient: 35 or more minutes Level of Care: IMCU Medications reviewed and adjusted accordingly: Yes Anticipated discharge: Home Anticipated DC Timeframe: Other
[2020-09-22] MEDS: INSULIN LISPRO 100 UNIT/ML 3 ML VIAL SUBCUT SCH ×5 (01:18→22:25)
[2020-09-22] MEDS: CIPROFLOXACIN 200 MG/D5W RTU 200 MG/100 ML RTUPB IV SCH ×3 (01:34→22:25)
[2020-09-22] MEDS: HYDRALAZINE HCL 50 MG TABLET PO SCH ×4 (01:34→22:25)
[2020-09-22] MEDS: ATORVASTATIN CALCIUM 80 MG TABLET PO SCH ×2 (01:34→22:25)
[2020-09-22] MEDS: HEPARIN SOD (PORCINE) 5,000 UNIT/ML 1 ML VIAL SUBCUT SCH ×4 (01:35→22:25)
[2020-09-22] MEDS: DONEPEZIL HCL 5 MG TABLET PO SCH ×2 (01:35→22:25)
[2020-09-22 06:17] LABS: HEMATOCRIT 26.7 % (36.0-47.0); HEMOGLOBIN 8.9 g/dL (12.0-15.5); MEAN CORPUSCULAR HEMOGLOBIN 27.9 pg (27.0-33.4); MEAN CORPUSCULAR HGB CONC 33.3 g/dL (32.0-36.0); MEAN CORPUSCULAR VOLUME 84 fl (80-97); PLATELET COUNT 262 10^3/uL (150-450); RED BLOOD COUNT 3.18 10^6/uL (3.72-5.28); RED CELL DISTRIBUTION WIDTH 16.4 % (11.5-14.0); WHITE BLOOD COUNT 7.9 10^3/uL (4.0-10.5)
[2020-09-22 06:33] LABS: ALBUMIN 2.4 g/dL (3.5-5.0); ALKALINE PHOSPHATASE 55 U/L (38-126); ANION GAP 8 (5-19); ASPARTATE AMINO TRANSFERASE 26 U/L (14-36); BILIRUBIN,DIRECT 0.5 mg/dL (0.0-0.4); BILIRUBIN,TOTAL 0.5 mg/dL (0.2-1.3); BLOOD UREA NITROGEN 41 mg/dL (7-20); CALCIUM 7.1 mg/dL (8.4-10.2); CARBON DIOXIDE 26 mmol/L (22-30); CHLORIDE 100 mmol/L (98-107); GLUCOSE 85 mg/dL (75-110); POTASSIUM 3.2 mmol/L (3.6-5.0)
[2020-09-22 06:49] LABS: ABSOLUTE LYMPHOCYTES# (MANUAL) 0.9 10^3/uL (0.5-4.7); ABSOLUTE MONOCYTES # (MANUAL) 0.6 10^3/uL (0.1-1.4); BAND NEUTROPHILS % (MANUAL) 3 % (3-5); BASOPHILS % (MANUAL) 0 % (0-2); EOSINOPHILS % (MANUAL) 2 % (0-6); LYMPHOCYTES % (MANUAL) 11 % (13-45); MONOCYTES % (MANUAL) 7 % (3-13); NUCLEATED RED BLOOD CELLS 1 /100 WBC (0); SEGMENTED NEUTROPHILS % (MAN) 75 % (42-78); TOTAL CELLS COUNTED 100
[2020-09-22 06:50] LABS: ANISOCYTOSIS 1+; PLATELET COMMENT ADEQUATE; POLYCHROMASIA 1+
[2020-09-22 06:51] LABS: POIKILOCYTOSIS 1+; SCHISTOCYTES 1+
[2020-09-22 06:52] LABS: OVALOCYTES SLIGHT
[2020-09-22 06:53] LABS: BURR CELLS 1+; TEAR DROP CELLS 1+
[2020-09-22 06:54] LABS: PROMYELOCYTES % (MANUAL) 2 % (0)
[2020-09-22] MEDS: ACYCLOVIR 800 MG TABLET PO SCH ×5 (07:49→20:14)
[2020-09-22] MEDS ORDERED: EPOETIN ALFA-EPBX 20,000 UNIT in SYRINGE, DISPOSABLE, 1 EACH IV PRN (08:00)
[2020-09-22] MEDS ORDERED: HEPARIN SOD (PORCINE) 1,000 UNIT/ML 10 ML VIAL IV PRN (08:59)
[2020-09-22] MEDS: CETIRIZINE 10 MG TABLET PO SCH (11:29)
[2020-09-22] MEDS: ASPIRIN 81 MG TABLET, ENT COATED PO SCH (11:29)
[2020-09-22] MEDS: FUROSEMIDE 40 MG TABLET PO SCH ×2 (11:29→17:38)
[2020-09-22] MEDS: ASCORBIC ACID 500 MG TABLET PO SCH ×2 (11:29→17:38)
[2020-09-22] MEDS: ZINC SULFATE 220 MG CAPSULE PO SCH (11:29)
[2020-09-22] MEDS: DEXAMETHASONE SOD PHOS INJ 10 MG/1 ML VIAL IV SCH (11:29)
[2020-09-22] MEDS: BUSPIRONE HCL 10 MG TABLET PO SCH ×2 (11:30→17:38)
[2020-09-22] MEDS: LACTULOSE SYRUP 20 GM/30 ML UDCUP PO SCH (11:30)
[2020-09-22] MEDS: INSULIN GLARGINE,HUM.REC.ANLOG 1,000 UNIT/10 ML VIAL SUBCUT SCH (11:32)
[2020-09-22] MEDS: METOPROLOL TARTRATE 100 MG TABLET PO SCH ×2 (11:34→17:38)
[2020-09-22] MEDS: AMLODIPINE BESYLATE 10 MG TABLET PO SCH (11:35)
[2020-09-22] MEDS: ISOSORBIDE MONONITRATE 30 MG TAB.ER.24H PO SCH (11:35)
[2020-09-22] MEDS: VALSARTAN 160 MG TABLET PO SCH (11:35)
[2020-09-22] MEDS: NIFEDIPINE 30 MG TAB.ER.24 PO SCH (11:35)
[2020-09-22] MEDS: DOXAZOSIN MESYLATE 4 MG TABLET PO SCH ×2 (11:36→17:38)
[2020-09-22] MEDS: CHOLECALCIFEROL (D3) 1,000 UNIT (25 MCG) TABLET PO SCH (11:36)
--- NOTE | 2020-09-22 12:52 | PDOC PROGRESS REPORT ---
Subjective Date:: 09/22/20 Reason For Visit: Patient seen today on dialysis. She looks and admits to the fact that she still continues to feel weak and may be showing slight improvement. She denies any fever or chills. Labs and medications were reviewed. Treatment orders were reviewed with the treating dialysis nurse. Physical Exam Vital Signs: Temp Pulse Resp BP Pulse Ox 97.5 F 69 17 121/57 L 100 09/22/20 11:08 09/22/20 11:08 09/22/20 11:08 09/22/20 11:08 09/22/20 11:08 Intake & Output 09/21/20 09/22/20 09/23/20 06:59 06:59 06:59 Intake Total 698 520 Output Total 600 Balance 98 520 Weight 81.9 kg 82.5 kg General appearance: PRESENT: no acute distress Respiratory exam: PRESENT: clear to auscultation jeanette, decreased breath sounds. ABSENT: crackles Cardiovascular exam: PRESENT: +S1, +S2 GI/Abdominal exam: PRESENT: normal bowel sounds, soft. ABSENT: organomegaly, tenderness Extremities exam: ABSENT: pedal edema Neurological exam: PRESENT: alert, awake, oriented to person, oriented to place Psychiatric exam: PRESENT: depressed Results Laboratory Results: 09/22/20 05:20 09/22/20 05:20 09/22/20 09/22/20 05:20 05:20 WBC 7.9 RBC 3.18 L Hgb 8.9 L Hct 26.7 L MCV 84 MCH 27.9 MCHC 33.3 RDW 16.4 H Plt Count 262 Seg Neutrophils % Not Reportable Sodium 134.2 L Potassium 3.2 L Chloride 100 Carbon Dioxide 26 Anion Gap 8 BUN 41 H Creatinine 5.23 H Est GFR ( Amer) 10 L Glucose 85 Calcium 7.1 L Total Bilirubin 0.5 AST 26 Alkaline Phosphatase 55 Total Protein 5.0 L Albumin 2.4 L 09/15/20 09/15/20 09/15/20 00:38 00:38 08:50 Creatine Kinase 127 110 Troponin I 0.678 09/15/20 08:50 Creatine Kinase Troponin I 0.617 Impressions: Lung Scan-VQ NM 09/15/20 00:00 IMPRESSION: Low probability for pulmonary embolism. Abdomen/Pelvis CT 09/15/20 03:22 IMPRESSION: Small pleural effusions. No definite acute inflammatory process otherwise. Chest X-Ray 09/15/20 04:15 IMPRESSION: 1. Mild vascular congestion. 2. Stable prominence of the cardiac silhouette. 3. Right IJ central venous dialysis catheter tip terminates in the region of the cavoatrial junction. Chest CT 09/16/20 00:00 IMPRESSION: 1. There are occasional scattered peripheral areas of parenchymal opacification which may be due to atelectasis or inflammatory change. There is also mild bibasilar fibrosis and/or atelectasis. 2. Cardiomegaly. 3. Moderate coronary artery calcifications. Head CT 09/16/20 00:00 IMPRESSION: No acute intracranial abnormality TECHNICAL DOCUMENTATION: Quality ID # [id number]: Final reports with documentation of one or more dose reduction techniques (e.g., Automated exposure control, adjustment of the mA and/or kV according to patient size, use of iterative reconstruction technique) copyright 2011 [email or web address]- All Rights Reserved Assessment & Plan - Diagnosis (1) ESRD (end stage renal disease) on dialysis Is this a current diagnosis for this admission?: Yes Plan: Patient admitted with Covid pneumonia and UTI. Currently on dialysis. Plan to remove approximately 500-1 L of fluid. Labs and medications reviewed. Dialysis orders were reviewed with treating dialysis nurse. (2) Pneumonia due to COVID-19 virus Is this a current diagnosis for this admission?: Yes Plan: As per Dr. Zavala. (3) Diabetes mellitus type 2 in obese Is this a current diagnosis for this admission?: Yes Plan: As per Dr. Zavala. (4) Hypertension Qualifiers: Hypertension type: unspecified Qualified Code(s): I10 - Essential (primary) hypertension Is this a current diagnosis for this admission?: Yes Plan: Now under better control. Continue current guidelines. Monitor. See response to dialysis. (5) Physical debility Plan: Will need rehabilitation. (6) Urinary tract infection Qualifiers: Urinary tract infection type: site unspecified Plan: On antibiotics.
[2020-09-22 13:34] LABS: PATH REVIEW PATHOLOGIST REVIEWED
[2020-09-22] MEDS: MONTELUKAST SODIUM 10 MG TABLET PO SCH (17:38)
--- NOTE | 2020-09-22 19:32 | PDOC PROGRESS REPORT ---
Subjective Date:: 09/22/20 Subjective:: Patient seen by the bedside, she was dialyzed today, she still feels very fatigu ed but overall she is improving, she has less respiratory symptoms, no cough no shortness of breath. Reason For Visit: COVID PNEUMONIA ESRD ON DIALYSIS Physical Exam Vital Signs: Temp Pulse Resp BP Pulse Ox 98.1 F 68 17 117/51 L 100 09/22/20 16:23 09/22/20 16:23 09/22/20 16:23 09/22/20 16:23 09/22/20 16:23 Intake & Output 09/21/20 09/22/20 09/23/20 06:59 06:59 06:59 Intake Total 698 520 300 Output Total 600 Balance 98 520 300 Weight 81.9 kg 82.5 kg General appearance: PRESENT: no acute distress Eye exam: PRESENT: PERRLA Respiratory exam: PRESENT: clear to auscultation jeanette Cardiovascular exam: PRESENT: +S1, +S2 GI/Abdominal exam: PRESENT: soft Results Laboratory Results: 09/22/20 05:20 09/22/20 05:20 09/22/20 09/22/20 05:20 05:20 WBC 7.9 RBC 3.18 L Hgb 8.9 L Hct 26.7 L MCV 84 MCH 27.9 MCHC 33.3 RDW 16.4 H Plt Count 262 Seg Neutrophils % Not Reportable Sodium 134.2 L Potassium 3.2 L Chloride 100 Carbon Dioxide 26 Anion Gap 8 BUN 41 H Creatinine 5.23 H Est GFR ( Amer) 10 L Glucose 85 Calcium 7.1 L Total Bilirubin 0.5 AST 26 Alkaline Phosphatase 55 Total Protein 5.0 L Albumin 2.4 L 09/15/20 09/15/20 09/15/20 00:38 00:38 08:50 Creatine Kinase 127 110 Troponin I 0.678 09/15/20 08:50 Creatine Kinase Troponin I 0.617 Impressions: Lung Scan-VQ NM 09/15/20 00:00 IMPRESSION: Low probability for pulmonary embolism. Abdomen/Pelvis CT 09/15/20 03:22 IMPRESSION: Small pleural effusions. No definite acute inflammatory process otherwise. Chest X-Ray 09/15/20 04:15 IMPRESSION: 1. Mild vascular congestion. 2. Stable prominence of the cardiac silhouette. 3. Right IJ central venous dialysis catheter tip terminates in the region of the cavoatrial junction. Chest CT 09/16/20 00:00 IMPRESSION: 1. There are occasional scattered peripheral areas of parenchymal opacification which may be due to atelectasis or inflammatory change. There is also mild bibasilar fibrosis and/or atelectasis. 2. Cardiomegaly. 3. Moderate coronary artery calcifications. Head CT 09/16/20 00:00 IMPRESSION: No acute intracranial abnormality TECHNICAL DOCUMENTATION: Quality ID # [id number]: Final reports with documentation of one or more dose reduction techniques (e.g., Automated exposure control, adjustment of the mA and/or kV according to patient size, use of iterative reconstruction technique) copyright 2011 [employer]- All Rights Reserved Assessment & Plan - Diagnosis (1) Acute hypoxemic respiratory failure Is this a current diagnosis for this admission?: Yes Plan: Continue supplemental oxygen via nasal cannula (2) Pneumonia due to COVID-19 virus Is this a current diagnosis for this admission?: Yes Plan: Continue IV antibiotic, remdesivir, dexamethasone (3) ESRD (end stage renal disease) Is this a current diagnosis for this admission?: Yes Plan: Management per electronic warfare officer (4) Type 2 diabetes mellitus with diabetic chronic kidney disease Qualifiers: Diabetes mellitus manager intermediate insulin use: with manager intermediate use Chronic kidney disease stage: on chronic dialysis Qualified Code(s): E11.22 - Type 2 diabetes mellitus with diabetic chronic kidney disease; N18.6 - End stage renal disease; Z79.4 - assisted (current) use of insulin; Z99.2 - Dependence on renal dialysis Is this a current diagnosis for this admission?: Yes (5) Debility Is this a current diagnosis for this admission?: Yes Plan: Patient will require physical therapy - Time Time Spent with patient: 35 or more minutes Level of Care: IMCU Medications reviewed and adjusted accordingly: Yes Anticipated discharge: Home Anticipated DC Timeframe: Other
[2020-09-23] MEDS: HEPARIN SOD (PORCINE) 5,000 UNIT/ML 1 ML VIAL SUBCUT SCH ×3 (06:18→22:55)
[2020-09-23] MEDS: ACYCLOVIR 800 MG TABLET PO SCH ×6 (06:19→18:09)
[2020-09-23] MEDS: HYDRALAZINE HCL 50 MG TABLET PO SCH ×3 (06:19→22:54)
[2020-09-23 06:46] LABS: ALBUMIN 2.8 g/dL (3.5-5.0); ALKALINE PHOSPHATASE 56 U/L (38-126); ANION GAP 11 (5-19); ASPARTATE AMINO TRANSFERASE 23 U/L (14-36); BILIRUBIN,DIRECT 0.5 mg/dL (0.0-0.4); BILIRUBIN,TOTAL 0.5 mg/dL (0.2-1.3); BLOOD UREA NITROGEN 22 mg/dL (7-20); CALCIUM 7.5 mg/dL (8.4-10.2); CARBON DIOXIDE 21 mmol/L (22-30); CHLORIDE 104 mmol/L (98-107); GLUCOSE 93 mg/dL (75-110); POTASSIUM 3.9 mmol/L (3.6-5.0); TOTAL PROTEIN 5.4 g/dL (6.3-8.2)
[2020-09-23 06:54] LABS: HEMATOCRIT 25.2 % (36.0-47.0); HEMOGLOBIN 8.4 g/dL (12.0-15.5); MEAN CORPUSCULAR HEMOGLOBIN 28.7 pg (27.0-33.4); MEAN CORPUSCULAR HGB CONC 33.1 g/dL (32.0-36.0); MEAN CORPUSCULAR VOLUME 87 fl (80-97); PLATELET COUNT 248 10^3/uL (150-450); RED BLOOD COUNT 2.91 10^6/uL (3.72-5.28); RED CELL DISTRIBUTION WIDTH 16.6 % (11.5-14.0); WHITE BLOOD COUNT 8.6 10^3/uL (4.0-10.5)
[2020-09-23 08:13] LABS: ABSOLUTE LYMPHOCYTES# (MANUAL) 0.6 10^3/uL (0.5-4.7); ABSOLUTE MONOCYTES # (MANUAL) 1.5 10^3/uL (0.1-1.4); BAND NEUTROPHILS % (MANUAL) 3 % (3-5); BASOPHILS % (MANUAL) 0 % (0-2); EOSINOPHILS % (MANUAL) 0 % (0-6); LYMPHOCYTES % (MANUAL) 7 % (13-45); METAMYELOCYTES % (MANUAL) 1 % (0-1); MONOCYTES % (MANUAL) 17 % (3-13); NUCLEATED RED BLOOD CELLS 2 /100 WBC (0); SEGMENTED NEUTROPHILS % (MAN) 72 % (42-78); TOTAL CELLS COUNTED 100
[2020-09-23 08:20] LABS: ANISOCYTOSIS 1+; BURR CELLS SLIGHT; HYPOCHROMASIA SLIGHT; POIKILOCYTOSIS 1+; POLYCHROMASIA 1+
[2020-09-23 08:21] LABS: OVALOCYTES 1+; PLATELET COMMENT ADEQUATE; PLATELET LARGE PRESENT; SCHISTOCYTES SLIGHT
[2020-09-23] MEDS: INSULIN LISPRO 100 UNIT/ML 3 ML VIAL SUBCUT SCH ×4 (08:50→22:55)
[2020-09-23] MEDS: DEXAMETHASONE SOD PHOS INJ 10 MG/1 ML VIAL IV SCH ×2 (09:41→10:00)
[2020-09-23] MEDS: CIPROFLOXACIN 200 MG/D5W RTU 200 MG/100 ML RTUPB IV SCH ×2 (09:45→22:54)
[2020-09-23] MEDS: LACTULOSE SYRUP 20 GM/30 ML UDCUP PO SCH ×2 (09:45→10:00)
[2020-09-23] MEDS: FUROSEMIDE 40 MG TABLET PO SCH ×3 (09:46→17:20)
[2020-09-23] MEDS: ASCORBIC ACID 500 MG TABLET PO SCH ×3 (09:46→17:21)
[2020-09-23] MEDS: METOPROLOL TARTRATE 100 MG TABLET PO SCH ×3 (09:46→17:20)
[2020-09-23] MEDS: ISOSORBIDE MONONITRATE 30 MG TAB.ER.24H PO SCH ×2 (09:47→10:00)
[2020-09-23] MEDS: AMLODIPINE BESYLATE 10 MG TABLET PO SCH ×2 (09:47→10:00)
[2020-09-23] MEDS: NIFEDIPINE 30 MG TAB.ER.24 PO SCH ×2 (09:47→10:00)
[2020-09-23] MEDS: BUSPIRONE HCL 10 MG TABLET PO SCH ×3 (09:47→17:20)
[2020-09-23] MEDS: CHOLECALCIFEROL (D3) 1,000 UNIT (25 MCG) TABLET PO SCH ×2 (09:47→10:00)
[2020-09-23] MEDS: ZINC SULFATE 220 MG CAPSULE PO SCH ×2 (09:47→10:00)
[2020-09-23] MEDS: VALSARTAN 160 MG TABLET PO SCH ×2 (09:47→10:00)
[2020-09-23] MEDS: DOXAZOSIN MESYLATE 4 MG TABLET PO SCH ×3 (09:47→17:20)
[2020-09-23] MEDS: ASPIRIN 81 MG TABLET, ENT COATED PO SCH ×2 (09:47→10:00)
[2020-09-23] MEDS: CETIRIZINE 10 MG TABLET PO SCH ×2 (09:48→10:00)
[2020-09-23] MEDS: INSULIN GLARGINE,HUM.REC.ANLOG 1,000 UNIT/10 ML VIAL SUBCUT SCH (12:00)
--- NOTE | 2020-09-23 16:49 | PDOC PROGRESS REPORT ---
Subjective Date:: 09/23/20 Subjective:: Patient still obviously tired, she refused to participate in physical therapy to day, that is not good Reason For Visit: COVID PNEUMONIA ESRD ON DIALYSIS Physical Exam Vital Signs: Temp Pulse Resp BP Pulse Ox 97.5 F 66 17 135/60 H 100 09/23/20 12:24 09/23/20 14:00 09/23/20 12:24 09/23/20 12:24 09/23/20 12:24 Intake & Output 09/22/20 09/23/20 09/24/20 06:59 06:59 06:59 Intake Total 520 760 100 Output Total 500 Balance 520 260 100 Weight 82.5 kg 80.3 kg General appearance: PRESENT: no acute distress Respiratory exam: PRESENT: clear to auscultation jeanette Cardiovascular exam: PRESENT: +S1, +S2 GI/Abdominal exam: PRESENT: soft Neurological exam: PRESENT: alert Results Laboratory Results: 09/23/20 05:24 09/23/20 05:24 09/23/20 09/23/20 05:24 05:24 WBC 8.6 RBC 2.91 L Hgb 8.4 L Hct 25.2 L MCV 87 MCH 28.7 MCHC 33.1 RDW 16.6 H Plt Count 248 Seg Neutrophils % Not Reportable Sodium 136.1 L Potassium 3.9 Chloride 104 Carbon Dioxide 21 L Anion Gap 11 BUN 22 H Creatinine 3.43 H Est GFR ( Amer) 16 L Glucose 93 Calcium 7.5 L Total Bilirubin 0.5 AST 23 Alkaline Phosphatase 56 Total Protein 5.4 L Albumin 2.8 L 09/15/20 09/15/20 09/15/20 00:38 00:38 08:50 Creatine Kinase 127 110 Troponin I 0.678 09/15/20 08:50 Creatine Kinase Troponin I 0.617 Impressions: Lung Scan-VQ NM 09/15/20 00:00 IMPRESSION: Low probability for pulmonary embolism. Abdomen/Pelvis CT 09/15/20 03:22 IMPRESSION: Small pleural effusions. No definite acute inflammatory process otherwise. Chest X-Ray 09/15/20 04:15 IMPRESSION: 1. Mild vascular congestion. 2. Stable prominence of the cardiac silhouette. 3. Right IJ central venous dialysis catheter tip terminates in the region of the cavoatrial junction. Chest CT 09/16/20 00:00 IMPRESSION: 1. There are occasional scattered peripheral areas of parenchymal opacification which may be due to atelectasis or inflammatory change. There is also mild bibasilar fibrosis and/or atelectasis. 2. Cardiomegaly. 3. Moderate coronary artery calcifications. Head CT 09/16/20 00:00 IMPRESSION: No acute intracranial abnormality TECHNICAL DOCUMENTATION: Quality ID # [id number]: Final reports with documentation of one or more dose reduction techniques (e.g., Automated exposure control, adjustment of the mA and/or kV according to patient size, use of iterative reconstruction technique) copyright 2011 [employer]- All Rights Reserved Assessment & Plan - Diagnosis (1) Acute hypoxemic respiratory failure Is this a current diagnosis for this admission?: Yes Plan: Continue supplemental oxygen via nasal cannula (2) Pneumonia due to COVID-19 virus Is this a current diagnosis for this admission?: Yes Plan: Continue IV antibiotic, remdesivir, dexamethasone (3) ESRD (end stage renal disease) Is this a current diagnosis for this admission?: Yes Plan: Management per metal treater (4) Type 2 diabetes mellitus with diabetic chronic kidney disease Qualifiers: Diabetes mellitus medical terminologist insulin use: with assisted use Chronic kidney disease stage: on chronic dialysis Qualified Code(s): E11.22 - Type 2 diabetes mellitus with diabetic chronic kidney disease; N18.6 - End stage renal disease; Z79.4 - snf (current) use of insulin; Z99.2 - Dependence on renal dialysis Is this a current diagnosis for this admission?: Yes (5) Debility Is this a current diagnosis for this admission?: Yes Plan: Patient will require physical therapy - Time Time Spent with patient: 25-34 minutes Level of Care: IMCU Medications reviewed and adjusted accordingly: Yes Anticipated discharge: Home, Acute Rehab Anticipated DC Timeframe: Other
[2020-09-23] MEDS: MONTELUKAST SODIUM 10 MG TABLET PO SCH (17:20)
[2020-09-23] MEDS: ATORVASTATIN CALCIUM 80 MG TABLET PO SCH (22:54)
[2020-09-23] MEDS: DONEPEZIL HCL 5 MG TABLET PO SCH (22:55)
[2020-09-24] MEDS ORDERED: HEPARIN SOD (PORCINE) 1,000 UNIT/ML 10 ML VIAL IV PRN (05:00)
[2020-09-24 05:42] LABS: HEMATOCRIT 25.6 % (36.0-47.0); HEMOGLOBIN 8.4 g/dL (12.0-15.5); MEAN CORPUSCULAR HEMOGLOBIN 28.8 pg (27.0-33.4); MEAN CORPUSCULAR VOLUME 87 fl (80-97); PLATELET COUNT 256 10^3/uL (150-450); RED BLOOD COUNT 2.93 10^6/uL (3.72-5.28); RED CELL DISTRIBUTION WIDTH 16.7 % (11.5-14.0); WHITE BLOOD COUNT 8.6 10^3/uL (4.0-10.5)
[2020-09-24 06:08] LABS: ABSOLUTE LYMPHOCYTES# (MANUAL) 1.2 10^3/uL (0.5-4.7); ABSOLUTE MONOCYTES # (MANUAL) 0.9 10^3/uL (0.1-1.4); BAND NEUTROPHILS % (MANUAL) 1 % (3-5); BASOPHILS % (MANUAL) 0 % (0-2); EOSINOPHILS % (MANUAL) 2 % (0-6); LYMPHOCYTES % (MANUAL) 14 % (13-45); MONOCYTES % (MANUAL) 11 % (3-13); SEGMENTED NEUTROPHILS % (MAN) 72 % (42-78); TOTAL CELLS COUNTED 100
[2020-09-24 06:09] LABS: ANISOCYTOSIS 1+; BURR CELLS 1+; PLATELET COMMENT ADEQUATE; POIKILOCYTOSIS 1+; POLYCHROMASIA SLIGHT
[2020-09-24 06:11] LABS: ALBUMIN 2.6 g/dL (3.5-5.0); ALKALINE PHOSPHATASE 58 U/L (38-126); ANION GAP 9 (5-19); ASPARTATE AMINO TRANSFERASE 21 U/L (14-36); BILIRUBIN,DIRECT 0.4 mg/dL (0.0-0.4); BILIRUBIN,TOTAL 0.4 mg/dL (0.2-1.3); BLOOD UREA NITROGEN 29 mg/dL (7-20); CALCIUM 7.4 mg/dL (8.4-10.2); CARBON DIOXIDE 21 mmol/L (22-30); CHLORIDE 105 mmol/L (98-107); GLUCOSE 80 mg/dL (75-110); POTASSIUM 3.7 mmol/L (3.6-5.0); TOTAL PROTEIN 5.3 g/dL (6.3-8.2)
[2020-09-24] MEDS: HYDRALAZINE HCL 50 MG TABLET PO SCH ×3 (06:25→22:08)
[2020-09-24] MEDS: ACYCLOVIR 800 MG TABLET PO SCH ×5 (06:26→19:14)
[2020-09-24] MEDS: HEPARIN SOD (PORCINE) 5,000 UNIT/ML 1 ML VIAL SUBCUT SCH ×3 (06:26→22:08)
[2020-09-24] MEDS ORDERED: EPOETIN ALFA-EPBX 2,000 UNIT, EPOETIN ALFA-EPBX 3,000 UNIT, EPOETIN ALFA-EPBX 20,000 UN... IV PRN ×4 (08:00)
[2020-09-24] MEDS: CLONIDINE 0.3 MG/24 HR PATCH.TDWK TD SCH (09:10)
[2020-09-24] MEDS: VALSARTAN 160 MG TABLET PO SCH (11:14)
[2020-09-24] MEDS: NIFEDIPINE 30 MG TAB.ER.24 PO SCH (11:14)
[2020-09-24] MEDS: ISOSORBIDE MONONITRATE 30 MG TAB.ER.24H PO SCH (11:15)
[2020-09-24] MEDS: BUSPIRONE HCL 10 MG TABLET PO SCH ×2 (11:15→17:36)
[2020-09-24] MEDS: FUROSEMIDE 40 MG TABLET PO SCH ×2 (11:15→17:37)
[2020-09-24] MEDS: DOXAZOSIN MESYLATE 4 MG TABLET PO SCH ×2 (11:15→17:36)
[2020-09-24] MEDS: ASPIRIN 81 MG TABLET, ENT COATED PO SCH (11:15)
[2020-09-24] MEDS: METOPROLOL TARTRATE 100 MG TABLET PO SCH ×2 (11:15→17:37)
[2020-09-24] MEDS: ZINC SULFATE 220 MG CAPSULE PO SCH (11:16)
[2020-09-24] MEDS: CHOLECALCIFEROL (D3) 1,000 UNIT (25 MCG) TABLET PO SCH (11:16)
[2020-09-24] MEDS: ASCORBIC ACID 500 MG TABLET PO SCH ×2 (11:16→17:37)
[2020-09-24] MEDS: AMLODIPINE BESYLATE 10 MG TABLET PO SCH (11:16)
[2020-09-24] MEDS: DEXAMETHASONE SOD PHOS INJ 10 MG/1 ML VIAL IV SCH (11:16)
[2020-09-24] MEDS: CETIRIZINE 10 MG TABLET PO SCH (11:16)
[2020-09-24] MEDS: INSULIN GLARGINE,HUM.REC.ANLOG 1,000 UNIT/10 ML VIAL SUBCUT SCH (11:17)
[2020-09-24] MEDS: LACTULOSE SYRUP 20 GM/30 ML UDCUP PO SCH (11:19)
[2020-09-24] MEDS: INSULIN LISPRO 100 UNIT/ML 3 ML VIAL SUBCUT SCH ×4 (11:26→22:21)
[2020-09-24] MEDS: CIPROFLOXACIN 200 MG/D5W RTU 200 MG/100 ML RTUPB IV SCH (11:27)
--- NOTE | 2020-09-24 15:57 | PDOC PROGRESS REPORT ---
Subjective Date:: 09/24/20 Reason For Visit: Patient seen today on dialysis. Undergoing dialysis without any issues. Co ntinues to feel very weak and tired. Denies any history of chest pain or shortness of breath. Labs and medications were reviewed. Dialysis orders were reviewed with the treating dialysis nurse. Physical Exam Vital Signs: Temp Pulse Resp BP Pulse Ox 98.3 F 83 16 140/73 H 100 09/24/20 12:00 09/24/20 14:00 09/24/20 12:00 09/24/20 12:00 09/24/20 12:00 Intake & Output 09/23/20 09/24/20 09/25/20 06:59 06:59 06:59 Intake Total 760 200 Output Total 500 600 Balance 260 200 -600 Weight 80.3 kg 82 kg General appearance: PRESENT: no acute distress Respiratory exam: PRESENT: clear to auscultation jeanette, decreased breath sounds. ABSENT: crackles Cardiovascular exam: PRESENT: +S1, +S2 GI/Abdominal exam: PRESENT: normal bowel sounds, soft. ABSENT: organomegaly, tenderness Extremities exam: ABSENT: pedal edema Neurological exam: PRESENT: alert, awake, oriented to person, oriented to place Psychiatric exam: PRESENT: depressed Results Laboratory Results: 09/24/20 05:09 09/24/20 05:09 09/24/20 09/24/20 05:09 05:09 WBC 8.6 RBC 2.93 L Hgb 8.4 L Hct 25.6 L MCV 87 MCH 28.8 MCHC 33.0 RDW 16.7 H Plt Count 256 Seg Neutrophils % Not Reportable Sodium 134.6 L Potassium 3.7 Chloride 105 Carbon Dioxide 21 L Anion Gap 9 BUN 29 H Creatinine 4.64 H Est GFR ( Amer) 11 L Glucose 80 Calcium 7.4 L Total Bilirubin 0.4 AST 21 Alkaline Phosphatase 58 Total Protein 5.3 L Albumin 2.6 L 09/15/20 09/15/20 09/15/20 00:38 00:38 08:50 Creatine Kinase 127 110 Troponin I 0.678 09/15/20 08:50 Creatine Kinase Troponin I 0.617 Impressions: Lung Scan-VQ NM 09/15/20 00:00 IMPRESSION: Low probability for pulmonary embolism. Abdomen/Pelvis CT 09/15/20 03:22 IMPRESSION: Small pleural effusions. No definite acute inflammatory process otherwise. Chest X-Ray 09/15/20 04:15 IMPRESSION: 1. Mild vascular congestion. 2. Stable prominence of the cardiac silhouette. 3. Right IJ central venous dialysis catheter tip terminates in the region of the cavoatrial junction. Chest CT 09/16/20 00:00 IMPRESSION: 1. There are occasional scattered peripheral areas of parenchymal opacification which may be due to atelectasis or inflammatory change. There is also mild bibasilar fibrosis and/or atelectasis. 2. Cardiomegaly. 3. Moderate coronary artery calcifications. Head CT 09/16/20 00:00 IMPRESSION: No acute intracranial abnormality TECHNICAL DOCUMENTATION: Quality ID # [id number]: Final reports with documentation of one or more dose reduction techniques (e.g., Automated exposure control, adjustment of the mA and/or kV according to patient size, use of iterative reconstruction technique) copyright 2011 [employer]- All Rights Reserved Assessment & Plan - Diagnosis (1) ESRD (end stage renal disease) on dialysis Is this a current diagnosis for this admission?: Yes Plan: Patient admitted with Covid pneumonia and UTI. Currently on dialysis. Plan to remove approximately 500-1 L of fluid. Labs and medications reviewed. Dialysis orders were reviewed with treating dialysis nurse. (2) Pneumonia due to COVID-19 virus Is this a current diagnosis for this admission?: Yes Plan: As per Dr. Zavala. (3) Diabetes mellitus type 2 in obese Is this a current diagnosis for this admission?: Yes Plan: As per Dr. Zavala. (4) Hypertension Qualifiers: Hypertension type: unspecified Qualified Code(s): I10 - Essential (primary) hypertension Is this a current diagnosis for this admission?: Yes Plan: Now under better control. Continue current guidelines. Monitor. See response to dialysis. (5) Physical debility Plan: Will need rehabilitation. (6) Urinary tract infection Qualifiers: Urinary tract infection type: site unspecified Plan: Off antibiotics.
[2020-09-24] MEDS: MONTELUKAST SODIUM 10 MG TABLET PO SCH (17:37)
--- NOTE | 2020-09-24 20:44 | PDOC PROGRESS REPORT ---
Subjective Date:: 09/24/20 Subjective:: She was dialyzed today but she continues to be extremely fatigued, she has finis hed the recommended 5-day course of remdesivir, she is still on the IV dexamethasone, she continues to refuse physical therapy that is needed for her to get better. Reason For Visit: COVID PNEUMONIA ESRD ON DIALYSIS Physical Exam Vital Signs: Temp Pulse Resp BP Pulse Ox 99.3 F 81 26 H 181/66 H 100 09/24/20 16:21 09/24/20 16:21 09/24/20 16:21 09/24/20 16:21 09/24/20 16:21 Intake & Output 09/23/20 09/24/20 09/25/20 06:59 06:59 06:59 Intake Total 760 200 610 Output Total 500 600 Balance 260 200 10 Weight 80.3 kg 82 kg General appearance: PRESENT: no acute distress Eye exam: PRESENT: PERRLA Respiratory exam: PRESENT: clear to auscultation jeanette Cardiovascular exam: PRESENT: +S1, +S2 Neurological exam: PRESENT: alert Results Laboratory Results: 09/24/20 05:09 09/24/20 05:09 09/24/20 09/24/20 05:09 05:09 WBC 8.6 RBC 2.93 L Hgb 8.4 L Hct 25.6 L MCV 87 MCH 28.8 MCHC 33.0 RDW 16.7 H Plt Count 256 Seg Neutrophils % Not Reportable Sodium 134.6 L Potassium 3.7 Chloride 105 Carbon Dioxide 21 L Anion Gap 9 BUN 29 H Creatinine 4.64 H Est GFR ( Amer) 11 L Glucose 80 Calcium 7.4 L Total Bilirubin 0.4 AST 21 Alkaline Phosphatase 58 Total Protein 5.3 L Albumin 2.6 L 09/15/20 09/15/20 09/15/20 00:38 00:38 08:50 Creatine Kinase 127 110 Troponin I 0.678 09/15/20 08:50 Creatine Kinase Troponin I 0.617 Impressions: Lung Scan-VQ NM 09/15/20 00:00 IMPRESSION: Low probability for pulmonary embolism. Abdomen/Pelvis CT 09/15/20 03:22 IMPRESSION: Small pleural effusions. No definite acute inflammatory process otherwise. Chest X-Ray 09/15/20 04:15 IMPRESSION: 1. Mild vascular congestion. 2. Stable prominence of the cardiac silhouette. 3. Right IJ central venous dialysis catheter tip terminates in the region of the cavoatrial junction. Chest CT 09/16/20 00:00 IMPRESSION: 1. There are occasional scattered peripheral areas of parenchymal opacification which may be due to atelectasis or inflammatory change. There is also mild bibasilar fibrosis and/or atelectasis. 2. Cardiomegaly. 3. Moderate coronary artery calcifications. Head CT 09/16/20 00:00 IMPRESSION: No acute intracranial abnormality TECHNICAL DOCUMENTATION: Quality ID # [id number]: Final reports with documentation of one or more dose reduction techniques (e.g., Automated exposure control, adjustment of the mA and/or kV according to patient size, use of iterative reconstruction technique) copyright 2011 [employer]- All Rights Reserved Assessment & Plan - Diagnosis (1) Acute hypoxemic respiratory failure Is this a current diagnosis for this admission?: Yes Plan: She requires minimal oxygen supplementation (2) Pneumonia due to COVID-19 virus Is this a current diagnosis for this admission?: Yes Plan: Improved (3) ESRD (end stage renal disease) Is this a current diagnosis for this admission?: Yes Plan: Management per experimental flight test mechanic (4) Type 2 diabetes mellitus with diabetic chronic kidney disease Qualifiers: Diabetes mellitus termite control servicer insulin use: with skilled nursing use Chronic kidney disease stage: on chronic dialysis Qualified Code(s): E11.22 - Type 2 diabetes mellitus with diabetic chronic kidney disease; N18.6 - End stage renal disease; Z79.4 - MCFP (current) use of insulin; Z99.2 - Dependence on renal dialysis Is this a current diagnosis for this admission?: Yes (5) Debility Is this a current diagnosis for this admission?: Yes Plan: Patient will require physical therapy - Time Time Spent with patient: 25-34 minutes Level of Care: IMCU Medications reviewed and adjusted accordingly: Yes Anticipated discharge: Home Anticipated DC Timeframe: Other
[2020-09-24] MEDS: DONEPEZIL HCL 5 MG TABLET PO SCH (22:08)
[2020-09-24] MEDS: ATORVASTATIN CALCIUM 80 MG TABLET PO SCH (22:08)
[2020-09-25] MEDS: HYDRALAZINE HCL 50 MG TABLET PO SCH ×3 (06:28→21:40)
[2020-09-25] MEDS: ACYCLOVIR 800 MG TABLET PO SCH ×5 (06:28→18:08)
[2020-09-25] MEDS: HEPARIN SOD (PORCINE) 5,000 UNIT/ML 1 ML VIAL SUBCUT SCH ×3 (06:29→21:40)
[2020-09-25 06:46] LABS: ABSOLUTE MONOCYTES (AUTO) 1.4 10^3/uL (0.1-1.4); ABSOLUTE NEUT (AUTO) 5.1 10^3/uL (1.7-8.2); BASOPHILS % (AUTO) 0.5 % (0-2); EOSINOPHILS % (AUTO) 0.2 % (0-6); HEMATOCRIT 26.3 % (36.0-47.0); HEMOGLOBIN 8.6 g/dL (12.0-15.5); LYMPHOCYTES % (AUTO) 13.4 % (13-45); MEAN CORPUSCULAR HEMOGLOBIN 28.8 pg (27.0-33.4); MEAN CORPUSCULAR HGB CONC 32.7 g/dL (32.0-36.0); MEAN CORPUSCULAR VOLUME 88 fl (80-97); MONOCYTES % (AUTO) 18.6 % (3-13); PLATELET COUNT 238 10^3/uL (150-450); RED BLOOD COUNT 2.99 10^6/uL (3.72-5.28); RED CELL DISTRIBUTION WIDTH 18.1 % (11.5-14.0); SEGMENTED NEUTROPHILS % (AUTO) 67.3 % (42-78); TOTAL CELLS COUNTED % (AUTO) 100 %; WHITE BLOOD COUNT 7.5 10^3/uL (4.0-10.5)
[2020-09-25 07:06] LABS: ALBUMIN 2.6 g/dL (3.5-5.0); ALKALINE PHOSPHATASE 64 U/L (38-126); ANION GAP 6 (5-19); ASPARTATE AMINO TRANSFERASE 19 U/L (14-36); BILIRUBIN,DIRECT 0.4 mg/dL (0.0-0.4); BILIRUBIN,TOTAL 0.4 mg/dL (0.2-1.3); BLOOD UREA NITROGEN 18 mg/dL (7-20); CALCIUM 7.5 mg/dL (8.4-10.2); CARBON DIOXIDE 26 mmol/L (22-30); CHLORIDE 102 mmol/L (98-107); GLUCOSE 97 mg/dL (75-110); POTASSIUM 3.7 mmol/L (3.6-5.0); TOTAL PROTEIN 5.3 g/dL (6.3-8.2)
[2020-09-25 07:31] LABS: ANISOCYTOSIS 1+; BURR CELLS SLIGHT; OVALOCYTES 1+; PLATELET COMMENT ADEQUATE; POIKILOCYTOSIS 1+; SCHISTOCYTES 2+; TEAR DROP CELLS 1+; TOXIC GRANULATION SLIGHT
[2020-09-25 07:32] LABS: POLYCHROMASIA SLIGHT
[2020-09-25] MEDS: INSULIN LISPRO 100 UNIT/ML 3 ML VIAL SUBCUT SCH ×4 (08:46→22:21)
[2020-09-25] MEDS: FUROSEMIDE 40 MG TABLET PO SCH ×2 (12:35→17:36)
[2020-09-25] MEDS: BUSPIRONE HCL 10 MG TABLET PO SCH ×2 (12:35→17:36)
[2020-09-25] MEDS: ASCORBIC ACID 500 MG TABLET PO SCH ×2 (12:35→17:35)
[2020-09-25] MEDS: DOXAZOSIN MESYLATE 4 MG TABLET PO SCH ×2 (12:35→17:36)
[2020-09-25] MEDS: LACTULOSE SYRUP 20 GM/30 ML UDCUP PO SCH (12:35)
[2020-09-25] MEDS: CHOLECALCIFEROL (D3) 1,000 UNIT (25 MCG) TABLET PO SCH (12:35)
[2020-09-25] MEDS: METOPROLOL TARTRATE 100 MG TABLET PO SCH ×2 (12:35→17:36)
[2020-09-25] MEDS: CETIRIZINE 10 MG TABLET PO SCH (12:36)
[2020-09-25] MEDS: ZINC SULFATE 220 MG CAPSULE PO SCH (12:36)
[2020-09-25] MEDS: VALSARTAN 160 MG TABLET PO SCH (14:08)
[2020-09-25] MEDS: INSULIN GLARGINE,HUM.REC.ANLOG 1,000 UNIT/10 ML VIAL SUBCUT SCH (14:08)
[2020-09-25] MEDS: ISOSORBIDE MONONITRATE 30 MG TAB.ER.24H PO SCH (14:08)
[2020-09-25] MEDS: ASPIRIN 81 MG TABLET, ENT COATED PO SCH (14:08)
[2020-09-25] MEDS: DEXAMETHASONE SOD PHOS INJ 10 MG/1 ML VIAL IV SCH (14:08)
[2020-09-25] MEDS: AMLODIPINE BESYLATE 10 MG TABLET PO SCH (14:09)
[2020-09-25] MEDS: NIFEDIPINE 30 MG TAB.ER.24 PO SCH (14:09)
[2020-09-25] MEDS: MONTELUKAST SODIUM 10 MG TABLET PO SCH (17:35)
--- NOTE | 2020-09-25 17:54 | PDOC PROGRESS REPORT ---
Subjective Date:: 09/25/20 Subjective:: Patient seen by the bedside she has no new complaints, still very fatigued Reason For Visit: COVID PNEUMONIA ESRD ON DIALYSIS Physical Exam Vital Signs: Temp Pulse Resp BP Pulse Ox 98.6 F 77 16 156/58 H 99 09/25/20 15:48 09/25/20 15:48 09/25/20 15:48 09/25/20 15:48 09/25/20 15:48 Intake & Output 09/24/20 09/25/20 09/26/20 06:59 06:59 06:59 Intake Total 200 610 Output Total 1000 Balance 200 -390 Weight 82 kg 78.2 kg General appearance: PRESENT: no acute distress Eye exam: PRESENT: PERRLA Respiratory exam: PRESENT: clear to auscultation jeanette Cardiovascular exam: PRESENT: +S1, +S2 GI/Abdominal exam: PRESENT: soft Neurological exam: PRESENT: alert Results Laboratory Results: 09/25/20 06:07 09/25/20 06:07 09/25/20 09/25/20 06:07 06:07 WBC 7.5 RBC 2.99 L Hgb 8.6 L Hct 26.3 L MCV 88 MCH 28.8 MCHC 32.7 RDW 18.1 H Plt Count 238 Seg Neutrophils % 67.3 Sodium 133.8 L Potassium 3.7 Chloride 102 Carbon Dioxide 26 Anion Gap 6 BUN 18 Creatinine 3.10 H Est GFR ( Amer) 18 L Glucose 97 Calcium 7.5 L Total Bilirubin 0.4 AST 19 Alkaline Phosphatase 64 Total Protein 5.3 L Albumin 2.6 L 09/15/20 09/15/20 09/15/20 00:38 00:38 08:50 Creatine Kinase 127 110 Troponin I 0.678 09/15/20 08:50 Creatine Kinase Troponin I 0.617 Impressions: Lung Scan-VQ NM 09/15/20 00:00 IMPRESSION: Low probability for pulmonary embolism. Abdomen/Pelvis CT 09/15/20 03:22 IMPRESSION: Small pleural effusions. No definite acute inflammatory process otherwise. Chest X-Ray 09/15/20 04:15 IMPRESSION: 1. Mild vascular congestion. 2. Stable prominence of the cardiac silhouette. 3. Right IJ central venous dialysis catheter tip terminates in the region of the cavoatrial junction. Chest CT 09/16/20 00:00 IMPRESSION: 1. There are occasional scattered peripheral areas of parenchymal opacification which may be due to atelectasis or inflammatory change. There is also mild bibasilar fibrosis and/or atelectasis. 2. Cardiomegaly. 3. Moderate coronary artery calcifications. Head CT 09/16/20 00:00 IMPRESSION: No acute intracranial abnormality TECHNICAL DOCUMENTATION: Quality ID # 436: Final reports with documentation of one or more dose reduction techniques (e.g., Automated exposure control, adjustment of the mA and/or kV according to patient size, use of iterative reconstruction technique) copyright 2011 [employer]- All Rights Reserved Assessment & Plan - Diagnosis (1) Acute hypoxemic respiratory failure Is this a current diagnosis for this admission?: Yes Plan: She requires minimal oxygen supplementation (2) Pneumonia due to COVID-19 virus Is this a current diagnosis for this admission?: Yes Plan: Improved (3) ESRD (end stage renal disease) Is this a current diagnosis for this admission?: Yes Plan: Management per inductor tester (4) Type 2 diabetes mellitus with diabetic chronic kidney disease Qualifiers: Diabetes mellitus senior care insulin use: with long goods drier use Chronic kidney disease stage: on chronic dialysis Qualified Code(s): E11.22 - Type 2 diabetes mellitus with diabetic chronic kidney disease; N18.6 - End stage renal disease; Z79.4 - group home (current) use of insulin; Z99.2 - Dependence on renal dialysis Is this a current diagnosis for this admission?: Yes (5) Debility Is this a current diagnosis for this admission?: Yes - Time Time Spent with patient: 25-34 minutes Level of Care: IMCU Medications reviewed and adjusted accordingly: Yes Anticipated discharge: Home Anticipated DC Timeframe: within 72 hours
[2020-09-25] MEDS: ATORVASTATIN CALCIUM 80 MG TABLET PO SCH (21:40)
[2020-09-25] MEDS: DONEPEZIL HCL 5 MG TABLET PO SCH (21:40)
[2020-09-26 06:04] LABS: ABSOLUTE EOSINOPHILS # (AUTO) 0.1 10^3/uL (0.0-0.6); ABSOLUTE LYMPHOCYTES (AUTO) 0.9 10^3/uL (0.5-4.7); ABSOLUTE NEUT (AUTO) 4.6 10^3/uL (1.7-8.2); BASOPHILS % (AUTO) 0.4 % (0-2); EOSINOPHILS % (AUTO) 1.1 % (0-6); HEMATOCRIT 26.5 % (36.0-47.0); HEMOGLOBIN 8.7 g/dL (12.0-15.5); LYMPHOCYTES % (AUTO) 13.4 % (13-45); MEAN CORPUSCULAR HEMOGLOBIN 29.1 pg (27.0-33.4); MEAN CORPUSCULAR HGB CONC 32.7 g/dL (32.0-36.0); MEAN CORPUSCULAR VOLUME 89 fl (80-97); MONOCYTES % (AUTO) 15.8 % (3-13); PLATELET COUNT 199 10^3/uL (150-450); RED BLOOD COUNT 2.97 10^6/uL (3.72-5.28); RED CELL DISTRIBUTION WIDTH 24.2 % (11.5-14.0); SEGMENTED NEUTROPHILS % (AUTO) 69.3 % (42-78); TOTAL CELLS COUNTED % (AUTO) 100 %; WHITE BLOOD COUNT 6.6 10^3/uL (4.0-10.5)
[2020-09-26] MEDS: HEPARIN SOD (PORCINE) 5,000 UNIT/ML 1 ML VIAL SUBCUT SCH (06:11)
[2020-09-26] MEDS: ACYCLOVIR 800 MG TABLET PO SCH ×2 (06:11→11:43)
[2020-09-26] MEDS: HYDRALAZINE HCL 50 MG TABLET PO SCH (06:11)
[2020-09-26 07:03] LABS: ALBUMIN 2.4 g/dL (3.5-5.0); ALKALINE PHOSPHATASE 55 U/L (38-126); ANION GAP 7 (5-19); ASPARTATE AMINO TRANSFERASE 19 U/L (14-36); BILIRUBIN,DIRECT 0.4 mg/dL (0.0-0.4); BILIRUBIN,TOTAL 0.4 mg/dL (0.2-1.3); BLOOD UREA NITROGEN 23 mg/dL (7-20); CALCIUM 7.3 mg/dL (8.4-10.2); CARBON DIOXIDE 25 mmol/L (22-30); CHLORIDE 104 mmol/L (98-107); POTASSIUM 3.5 mmol/L (3.6-5.0); TOTAL PROTEIN 4.9 g/dL (6.3-8.2)
[2020-09-26 07:09] LABS: GLUCOSE 56 mg/dL (75-110)
[2020-09-26 07:13] LABS: ANISOCYTOSIS 3+; BURR CELLS 1+; PLATELET CLUMPS PRESENT; PLATELET COMMENT ADEQUATE; POLYCHROMASIA SLIGHT; TARGET CELLS SLIGHT
[2020-09-26 07:15] LABS: OVALOCYTES 1+; SCHISTOCYTES SLIGHT
[2020-09-26 07:16] LABS: POIKILOCYTOSIS 1+; TEAR DROP CELLS SLIGHT
[2020-09-26] MEDS: DEXAMETHASONE SOD PHOS INJ 10 MG/1 ML VIAL IV SCH (11:41)
[2020-09-26] MEDS: NIFEDIPINE 30 MG TAB.ER.24 PO SCH (11:41)
[2020-09-26] MEDS: VALSARTAN 160 MG TABLET PO SCH (11:41)
[2020-09-26] MEDS: BUSPIRONE HCL 10 MG TABLET PO SCH (11:42)
[2020-09-26] MEDS: ASCORBIC ACID 500 MG TABLET PO SCH (11:42)
[2020-09-26] MEDS: CETIRIZINE 10 MG TABLET PO SCH (11:42)
[2020-09-26] MEDS: ISOSORBIDE MONONITRATE 30 MG TAB.ER.24H PO SCH (11:42)
[2020-09-26] MEDS: DOXAZOSIN MESYLATE 4 MG TABLET PO SCH (11:42)
[2020-09-26] MEDS: FUROSEMIDE 40 MG TABLET PO SCH (11:42)
[2020-09-26] MEDS: ASPIRIN 81 MG TABLET, ENT COATED PO SCH (11:42)
[2020-09-26] MEDS: CHOLECALCIFEROL (D3) 1,000 UNIT (25 MCG) TABLET PO SCH (11:42)
[2020-09-26] MEDS: AMLODIPINE BESYLATE 10 MG TABLET PO SCH (11:43)
[2020-09-26] MEDS: INSULIN GLARGINE,HUM.REC.ANLOG 1,000 UNIT/10 ML VIAL SUBCUT SCH (11:43)
[2020-09-26] MEDS: METOPROLOL TARTRATE 100 MG TABLET PO SCH (11:43)
[2020-09-26] MEDS: ZINC SULFATE 220 MG CAPSULE PO SCH (11:43)
[2020-09-26] MEDS: INSULIN LISPRO 100 UNIT/ML 3 ML VIAL SUBCUT SCH (11:44)
[2020-09-26] MEDS: LACTULOSE SYRUP 20 GM/30 ML UDCUP PO SCH (11:44)
[2020-09-26 15:38] VITALS: BP 149/51
--- NOTE | 2020-09-26 17:30 | PDOC DISCHARGE SUMMARY ---
Impression - Admit/DC Date/PCP Admission Date/Primary Care Provider: 09/15/20 04:35 QUINCY ALEJO MD Discharge Date: 09/26/20 - Discharge Diagnosis (1) Acute hypoxemic respiratory failure Is this a current diagnosis for this admission?: Yes (2) Pneumonia due to COVID-19 virus Is this a current diagnosis for this admission?: Yes (3) ESRD (end stage renal disease) Is this a current diagnosis for this admission?: Yes (4) Type 2 diabetes mellitus with diabetic chronic kidney disease Is this a current diagnosis for this admission?: Yes (5) Debility Is this a current diagnosis for this admission?: Yes - Additional Information Discharge Diet: Diabetic Discharge Activity: Activity As Tolerated Referrals: QUINCY ALEJO MD [Primary Care Provider] - Follow up as needed Home Medications: Aspirin [Ecotrin 81 mg EC Tablet] 81 mg PO DAILY 04/08/19 Atorvastatin Calcium [Lipitor 80 mg Tablet] 80 mg PO QHS 04/08/19 Metoprolol Tartrate [Lopressor 100 mg Tablet] 100 mg PO BID 04/08/19 Furosemide [Lasix 40 mg Tablet] 40 mg PO BID #180 tablet 04/10/19 Hydralazine HCl [Apresoline 50 mg Tablet] 100 mg PO Q8 #90 tablet 04/10/19 Valsartan [Diovan 160 mg Tablet] 320 mg PO DAILY #90 tablet 04/10/19 Isosorbide Mononitrate [Imdur 30 mg Tablet.er] 30 mg PO DAILY tab.er.24h 07/28/19 Cetirizine HCl [Zyrtec 10 mg Tablet] 10 mg PO DAILY 09/20/19 Doxazosin Mesylate [Cardura 4 mg Tablet] 4 mg PO BID 09/20/19 Meclizine HCl [Antivert 25 mg Tablet] 25 mg PO TIDP PRN 09/20/19 Montelukast Sodium [Singulair 10 mg Tablet] 10 mg PO DAILY 09/20/19 Buspirone HCl 15 mg PO BID 09/15/20 Clonidine HCl [Catapres 0.2 mg Tablet] 0.2 mg PO TID 09/15/20 Donepezil HCl [Aricept] 5 mg PO QHS 09/15/20 Doxepin HCl [Silenor] 6 mg PO QHS 09/15/20 Insulin Glargine,Hum.rec.anlog [Lantus Insulin 100 Unit/1 ml 10 ml] 10 units SQ DAILY 09/15/20 Insulin Lispro [Humalog Kwikpen U-100] 16 unit SQ TID 09/15/20 Lactulose 10 gm PO DAILY 09/15/20 Nifedipine [Nifedipine ER] 90 mg PO DAILY 09/15/20 Cetirizine HCl [Zyrtec 10 mg Tablet] 10 mg PO DAILY tablet 09/26/20 Montelukast Sodium [Singulair 10 mg Tablet] 10 mg PO QPM tablet 09/26/20 History of Present Illiness History of Present Illness: YG METZ is a 74 year old female,She has multiple comorbid conditions she came to the emergency room for evaluation of generalized body weakness, she was dialyzed yesterday, 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 She says she feels weak, and she cannot do anything she was able to get to dialysis the day before she presented to the emergency room for evaluation. She was accompanying by the , the endorses that patient had loose stool several days ago was not bloody and she also had fever. I was called by the ED physician to admit and to the hospital, SARS-CoV-2 test was done, it was positive.When I saw her on the floor she was very somnolent, she responds to tactile stimulus and she falls back to sleep very quickly.The arterial blood gas on FiO2 2 L PO2 47.8, PCO2 39.9, bicarbonate 25.7, consistent with hypoxemia Hospital Course Hospital Course: Patient was admitted for the management of COVID-19 positive test (U07.1, COVID- 19) with Acute Pneumonia (J12.89, Other viral pneumonia)(If respiratory failure or sepsis present, add as separate assessment), Acute hypoxemic respiratory failure, end-stage renal disease on hemodialysis, she was treated with intravenous dexamethasone, remdesivir, she required hemodialysis, she was seen by nephrology.She was very extremely fatigued partly from the Covid disease but she refused to participate in physical therapy. Patient has presently optimized and maximized treatment for Covid, she be discharged home today to follow outpatient physical therapy and to continue outpatient hemodialysis. Physical Exam Vital Signs: Temp Pulse Resp BP Pulse Ox 97.4 F 73 20 140/73 H 100 09/26/20 15:20 09/26/20 15:20 09/26/20 15:20 09/26/20 15:20 09/26/20 15:20 Intake & Output 09/25/20 09/26/20 09/27/20 06:59 06:59 06:59 Intake Total 610 290 Output Total 1000 0 Balance -390 290 Weight 78.2 kg 79.4 kg General appearance: PRESENT: no acute distress Eye exam: PRESENT: PERRLA Respiratory exam: PRESENT: clear to auscultation jeanette Cardiovascular exam: PRESENT: +S1, +S2 GI/Abdominal exam: PRESENT: soft Neurological exam: PRESENT: alert Results Laboratory Results: WBC 6.6 10^3/uL (4.0-10.5) 09/26/20 05:13 RBC 2.97 10^6/uL (3.72-5.28) L 09/26/20 05:13 Hgb 8.7 g/dL (12.0-15.5) L 09/26/20 05:13 Hct 26.5 % (36.0-47.0) L 09/26/20 05:13 MCV 89 fl (80-97) 09/26/20 05:13 MCH 29.1 pg (27.0-33.4) 09/26/20 05:13 MCHC 32.7 g/dL (32.0-36.0) 09/26/20 05:13 RDW 24.2 % (11.5-14.0) H 09/26/20 05:13 Plt Count 199 10^3/uL (150-450) 09/26/20 05:13 Lymph % (Auto) 13.4 % (13-45) 09/26/20 05:13 Owen % (Auto) 15.8 % (3-13) H 09/26/20 05:13 Eos % (Auto) 1.1 % (0-6) 09/26/20 05:13 Baso % (Auto) 0.4 % (0-2) 09/26/20 05:13 Absolute Neuts (auto) 4.6 10^3/uL (1.7-8.2) 09/26/20 05:13 Absolute Lymphs (auto) 0.9 10^3/uL (0.5-4.7) 09/26/20 05:13 Absolute Monos (auto) 1.0 10^3/uL (0.1-1.4) 09/26/20 05:13 Absolute Eos (auto) 0.1 10^3/uL (0.0-0.6) 09/26/20 05:13 Absolute Basos (auto) 0.0 10^3/uL (0.0-0.2) 09/26/20 05:13 Total Counted 100 09/24/20 05:09 Seg Neutrophils % 69.3 % (42-78) 09/26/20 05:13 Seg Neuts % (Manual) 72 % (42-78) 09/24/20 05:09 Band Neutrophils % 1 % (3-5) L 09/24/20 05:09 Lymphocytes % (Manual) 14 % (13-45) 09/24/20 05:09 Monocytes % (Manual) 11 % (3-13) 09/24/20 05:09 Eosinophils % (Manual) 2 % (0-6) 09/24/20 05:09 Basophils % (Manual) 0 % (0-2) 09/24/20 05:09 Metamyelocytes % 1 % (0-1) 09/23/20 05:24 Promyelocytes % 2 % (0) H 09/22/20 05:20 Abs Neuts (Manual) 6.3 10^3/uL (1.7-8.2) 09/24/20 05:09 Abs Lymphs (Manual) 1.2 10^3/uL (0.5-4.7) 09/24/20 05:09 Abs Monocytes (Manual) 0.9 10^3/uL (0.1-1.4) 09/24/20 05:09 Absolute Eos (Manual) 0.2 10^3/uL (0.0-0.6) 09/24/20 05:09 Abs Basophils (Manual) 0.0 10^3/uL (0.0-0.2) 09/24/20 05:09 Nucleated RBCs 2 /100 WBC (0) 09/23/20 05:24 Toxic Granulation SLIGHT 09/25/20 06:07 Clumped Platelets PRESENT 09/26/20 05:13 Large Platelets PRESENT 09/23/20 05:24 Platelet Comment ADEQUATE 09/26/20 05:13 Polychromasia SLIGHT 09/26/20 05:13 Hypochromasia SLIGHT 09/23/20 05:24 Poikilocytosis 1+ 09/26/20 05:13 Basophilic Stippling PRESENT 09/22/20 05:20 Anisocytosis 3+ 09/26/20 05:13 Target Cells SLIGHT 09/26/20 05:13 Tear Drop Cells SLIGHT 09/26/20 05:13 Ovalocytes 1+ 09/26/20 05:13 Miguel Cells 1+ 09/26/20 05:13 Schistocytes SLIGHT 09/26/20 05:13 PT 14.6 SEC (11.4-15.4) 09/15/20 08:50 INR 1.12 09/15/20 08:50 APTT 42.8 SEC (23.5-35.8) H 09/15/20 08:50 Fibrinogen 475 mg/dL (209-497) 09/15/20 08:50 D-Dimer 1.29 ug/mL (0.00-0.50) H 09/15/20 08:50 Carbonic Acid 1.20 mmol/L (1.05-1.35) 09/15/20 08:50 HCO3/H2CO3 Ratio 21:1 09/15/20 08:50 ABG pH 7.43 (7.35-7.45) 09/15/20 08:50 ABG pCO2 39.9 mmHg (35-45) 09/15/20 08:50 ABG pO2 47.8 mmHg (80-100) L 09/15/20 08:50 ABG HCO3 25.7 mmol/L (20-24) H 09/15/20 08:50 ABG Total CO2 26.9 mmol/L (21-25) H 09/15/20 08:50 ABG O2 Saturation 84.7 % (94-98) L 09/15/20 08:50 ABG Base Excess 1.3 mmol/L 09/15/20 08:50 VBG pH 7.41 (7.30-7.42) 09/15/20 00:38 VBG pCO2 41.4 mmHg (35-63) 09/15/20 00:38 VBG HCO3 25.6 mmol/L (20-32) 09/15/20 00:38 VBG Base Excess 0.8 mmol/L 09/15/20 00:38 FiO2 2L 09/15/20 08:50 Sodium 136.0 mmol/L (137-145) L 09/26/20 05:13 Potassium 3.5 mmol/L (3.6-5.0) L 09/26/20 05:13 Chloride 104 mmol/L (98-107) 09/26/20 05:13 Carbon Dioxide 25 mmol/L (22-30) 09/26/20 05:13 Anion Gap 7 (5-19) 09/26/20 05:13 BUN 23 mg/dL (7-20) H 09/26/20 05:13 Creatinine 4.07 mg/dL (0.52-1.25) H 09/26/20 05:13 Est GFR ( Amer) 13 (>60) L 09/26/20 05:13 Est GFR (MDRD) Non-Af 11 (>60) L 09/26/20 05:13 Glucose 56 mg/dL (75-110) L 09/26/20 05:13 POC Glucose 149 mg/dL (70-110) H 09/26/20 15:18 Lactic Acid 0.7 mmol/L (0.7-2.1) 09/15/20 03:13 Calcium 7.3 mg/dL (8.4-10.2) L 09/26/20 05:13 Ferritin 1420.00 ng/mL (11.1-264.0) H 09/15/20 08:50 Total Bilirubin 0.4 mg/dL (0.2-1.3) 09/26/20 05:13 Direct Bilirubin 0.4 mg/dL (0.0-0.4) 09/26/20 05:13 Neonat Total Bilirubin Not Reportable 09/26/20 05:13 Neonat Direct Bilirubin Not Reportable 09/26/20 05:13 Neonat Indirect Bili Not Reportable 09/26/20 05:13 AST 19 U/L (14-36) 09/26/20 05:13 ALT 8 U/L (<35) 09/26/20 05:13 Alkaline Phosphatase 55 U/L (38-126) 09/26/20 05:13 Lactate Dehydrogenase 426 U/L (120-246) H 09/15/20 08:50 Creatine Kinase 110 U/L (30-135) 09/15/20 08:50 Troponin I 0.617 ng/mL 09/15/20 08:50 C-Reactive Protein 52.4 mg/L (<10.0) H 09/15/20 08:50 Total Protein 4.9 g/dL (6.3-8.2) L 09/26/20 05:13 Albumin 2.4 g/dL (3.5-5.0) L 09/26/20 05:13 Urine Color HERNANDEZ 09/15/20 00:26 Urine Appearance CLOUDY 09/15/20 00:26 Urine pH 6.0 (5.0-9.0) 09/15/20 00:26 Ur Specific [place] 1.016 09/15/20 00:26 Urine Protein >=500 mg/dL (NEGATIVE) H 09/15/20 00:26 Urine Glucose (UA) NEGATIVE mg/dL (NEGATIVE) 09/15/20 00:26 Urine Ketones TRACE mg/dL (NEGATIVE) H 09/15/20 00:26 Urine Blood NEGATIVE (NEGATIVE) 09/15/20 00:26 Urine Nitrite (Reflex) NEGATIVE (NEGATIVE) 09/15/20 00:26 Urine Bilirubin NEGATIVE (NEGATIVE) 09/15/20 00:26 Urine Urobilinogen NEGATIVE mg/dL (<2.0) 09/15/20 00:26 Leukocyte Esterase Rfl LARGE (NEGATIVE) H 09/15/20 00:26 Urine RBC (Auto) 1 /HPF 09/15/20 00:26 U Hyaline Cast (Auto) 15 /LPF 09/15/20 00:26 Urine Bacteria (Auto) 3+ /HPF 09/15/20 00:26 Urine WBC (Reflex) 69 /HPF 09/15/20 00:26 Squamous Epi Cells Auto 15 /HPF 09/15/20 00:26 Urine Yeast (Budding) PRESENT /HPF 09/15/20 00:26 Urine Ascorbic Acid NEGATIVE (NEGATIVE) 09/15/20 00:26 POC Stool Occult Blood POSITIVE (NEGATIVE) 09/15/20 02:39 COVID-19 Source Cancelled 09/15/20 02:52 COVID-19 (MAT) Cancelled 09/15/20 02:52 Influenza A (Rapid) NEGATIVE (NEGATIVE) 09/15/20 08:50 Influenza A (RT-PCR) NEGATIVE (NEGATIVE) 09/15/20 02:52 Influenza B (Rapid) NEGATIVE (NEGATIVE) 09/15/20 08:50 Influenza B (RT-PCR) NEGATIVE (NEGATIVE) 09/15/20 02:52 RSV (RT-PCR) NEGATIVE (NEGATIVE) 09/15/20 02:52 SARS-CoV-2 Rap RNA(RT-PCR) POSITIVE (NEGATIVE) H 09/15/20 02:52 Group A Strep Rapid NEGATIVE (NEGATIVE) 09/15/20 08:50 Slides for Path Review PATHOLOGIST REVIEWED 09/22/20 05:20 Blood Type B POSITIVE 09/15/20 08:50 09/15/20 09/15/20 00:38 08:50 Troponin I 0.678 0.617 Impressions: Lung Scan-VQ NM 09/15/20 00:00 IMPRESSION: Low probability for pulmonary embolism. Abdomen/Pelvis CT 09/15/20 03:22 IMPRESSION: Small pleural effusions. No definite acute inflammatory process otherwise. Chest X-Ray 09/15/20 04:15 IMPRESSION: 1. Mild vascular congestion. 2. Stable prominence of the cardiac silhouette. 3. Right IJ central venous dialysis catheter tip terminates in the region of the cavoatrial junction. Chest CT 09/16/20 00:00 IMPRESSION: 1. There are occasional scattered peripheral areas of parenchymal opacification which may be due to atelectasis or inflammatory change. There is also mild bibasilar fibrosis and/or atelectasis. 2. Cardiomegaly. 3. Moderate coronary artery calcifications. Head CT 09/16/20 00:00 IMPRESSION: No acute intracranial abnormality TECHNICAL DOCUMENTATION: Quality ID # 436: Final reports with documentation of one or more dose reduction techniques (e.g., Automated exposure control, adjustment of the mA and/or kV according to patient size, use of iterative reconstruction technique) copyright 2011 [employer]- All Rights Reserved Stroke Is this a Stroke Patient?: No Acute Heart Failure Is this a Heart Failure Patient?: No
[2020-09-27] MEDS ORDERED: EPOETIN ALFA-EPBX 2,000 UNIT, EPOETIN ALFA-EPBX 3,000 UNIT, EPOETIN ALFA-EPBX 20,000 UN... IV PRN ×4 (05:00)
[2020-09-27] MEDS ORDERED: HEPARIN SOD (PORCINE) 1,000 UNIT/ML 10 ML VIAL IV PRN (05:00)
== END 2020-09-26 16:46 | disposition home health service (06) | DRG 177 ==
LOC: ER 23:53 → EH 09-15 04:35 → 3W 09-15 12:17
PROVIDERS: ADMIT Internal Medicine; ATTEND Internal Medicine
PROC: XW033E5 Introduction of Remdesivir Anti-infective into Peripheral Vein, Percutaneous Approach, New Technology Group 5 (ICD-10-PCS; principal; 2020-09-15)
PROC: 5A1D70Z Performance of Urinary Filtration, Intermittent, Less than 6 Hours Per Day (ICD-10-PCS; 2020-09-20)
DX: U07.1 COVID-19 (principal); J12.82 Pneumonia due to coronavirus disease 2019; J96.01 Acute respiratory failure with hypoxia; N18.6 End stage renal disease; I12.0 Hypertensive chronic kidney disease with stage 5 chronic kidney disease or end stage renal disease; N39.0 Urinary tract infection, site not specified; E11.22 Type 2 diabetes mellitus with diabetic chronic kidney disease; I25.10 Atherosclerotic heart disease of native coronary artery without angina pectoris; E11.21 Type 2 diabetes mellitus with diabetic nephropathy; E78.5 Hyperlipidemia, unspecified; E11.319 Type 2 diabetes mellitus with unspecified diabetic retinopathy without macular edema; E11.43 Type 2 diabetes mellitus with diabetic autonomic (poly)neuropathy; D63.1 Anemia in chronic kidney disease; Z88.8 Allergy status to other drugs, medicaments and biological substances; Z88.6 Allergy status to analgesic agent; Z82.49 Family history of ischemic heart disease and other diseases of the circulatory system; Z85.038 Personal history of other malignant neoplasm of large intestine; Z90.49 Acquired absence of other specified parts of digestive tract; Z99.2 Dependence on renal dialysis; Z95.5 Presence of coronary angioplasty implant and graft; Z79.4 Long term (current) use of insulin; Z79.899 Other long term (current) drug therapy
CPT/HCPCS: 36415; 36430; 70450; 71045; 71250; 74176; 78580; 80053; 81001; 82270; 82550; 82728; 82803; 82962; 83605; 83615; 84484; 85025; 85379; 85384; 85610; 85730; 86140; 86900; 86901; 87040; 87070; 87077; 87086; 87088; 87150; 87186; 87804; 87880; 93005; 93010; 99285; 0241U; A9540; C9803; J0360; J0744; J1100; J1644; J1815; J2405; J3490; J7050; Q5105; Q9969; S0119